=== PATIENT | male | born 1965 | race Caucasian/White ===

== ENCOUNTER 2020-09-08 09:51 | Outpatient (RCR) | payer OTHER, SELFPAY | END 2020-09-08 23:59 | LOC: IMMUN 09:51 | PROVIDERS: PCP Family Medicine; Visit Provider Family Medicine | DX: Z23 Encounter for immunization (principal) | CPT/HCPCS: 0011A; 0012A ==

== ENCOUNTER → 2023-07-01 | Outpatient (CLI) | payer OTHER, SELFPAY ==
--- NOTE | 2023-06-28 09:30 | MASS_PTH ---
PATIENT: MELODIE SMITH Jr. LOC: [facility] U#:[id number] AGE/SX: 57/M ROOM: RE07/01/[address]: Dr. Kash Garza MD : 1965 BED: DIS: 07/01/2023 SPEC #: [id number] RECD: 07/02/23 09:05 STATUS: PAT REIron #: [id number] YESSICA: 06/28/23 09:[address]: Kash Garza DEPT: SURGICAL PATHOLOGY RECD BY: Snow Mijares ENTERED: 07/02/23 09:06 SP TYPE: Mass OTHR DR: Dr. Javi Zamora MD [facility] Tissues: Penis, NOS Procedures: Surgery Specimen Level IV HEADER OPERATION: Excision of penile mass PRE-OP DIAGNOSIS: Carcinoma in situ of penis TISSUE SUBMITTED: Penile mass MICROSCOPIC DIAGNOSIS Penile mass, excision: Invasive well-differentiated squamous cell carcinoma. Chronic inflammation and hyperkeratosis. See comment. AM:haider 07/03/2023 AM:haider 07/29/2023 COMMENT The lesion measures approximately 5.0 millimeters in greatest dimension and is completely excised in the planes examined. There is no evidence of perineural or vascular invasion. Clinical correlation is suggested. CUTANEOUS SQUAMOUS CELL CARCINOMA SUMMARY Procedure - excision, not otherwise specified Tumor focality - unifocal Multiple primary sites - not applicable Tumor site - penis Tumor laterality - not specified Tumor size - 0.5 cm Additional dimensions - 0.5 x 0.3 cm Histologic Type - squamous cell carcinoma, not otherwise specified Histologic Grade - G1: Well differentiated Anatomic level - IV (carcinoma invades reticular dermis) Lymphvascular invasion - not identified Perineural invasion - not identified Margin status for invasive tumor - all margins negative for invasive tumor. Distance from invasive tumor to closest margin - 1.0 mm (deep margin) Closest margin to invasive tumor - deep margin Regional lymph nodes - not applicable Distant metastasis - not applicable PATHOLOGIC STAGE: pT1 Nx Mx The above summary is in compliance with [employer] (CAP) Cancer Protocols Checklist and [place] [employer] on Cancer (AJCC), Staging Manual, 8th Ed. Case discussed with Dr. Moon on 07/29/2023. Case has been reviewed in consultation with Dr. Montoya who concurs with the above diagnosis. IDC:SJ MICROSCOPIC DESCRIPTION Slides are reviewed. GROSS DESCRIPTION Received in fixative is one container labeled with the patient's name and designated penile mass. The specimen consists of a piece of skin with underlying tissue measuring 1.5 x 1.3 x 1.0 cm. The specimen is serially sectioned and submitted entirely in one cassette. / SJ:rg 07/02/2023 TC:0 [facility]: [id number] ADDENDUM ADDENDUM ADDENDUM ADDENDUM ADDENDUM ADDENDUM ADDENDUM ADDENDUM ADDENDUM ADDENDUM ADDENDUM 09/02/2023 08:58 ADDENDUM 09/02/2023 08:58 ADDENDUM 09/02/2023 08:58 ADDENDUM 09/02/2023 08:58 ADDENDUM 09/02/2023 08:58 This addendum is added to incorporate an outside pathology consultation report. The case was examined at [facility] (#[id number]) and the following diagnosis was rendered. Penile mass, excision: Invasive squamous cell carcinoma, well-differentiated. Inked margins are negative for carcinoma. Please see complete above mentioned consultation report in EMR
--- NOTE | 2023-06-28 09:30 | MASS_PTH ---
PATIENT: MELODIE SMITH Jr. LOC: [facility] U#:[id number] AGE/SX: 57/M ROOM: RE07/01/[address]: Dr. Kash Garza MD : 1965 BED: DIS: 07/01/2023 SPEC #: [id number] RECD: 07/02/23 09:05 STATUS: PAT REIron #: [id number] YESSICA: 06/28/23 09:[address]: Kash Garza DEPT: SURGICAL PATHOLOGY RECD BY: Snow Mijares ENTERED: 07/02/23 09:06 SP TYPE: Mass OTHR DR: Dr. Javi Zamora MD [facility] Tissues: Penis, NOS Procedures: Surgery Specimen Level IV HEADER OPERATION: Bilateral excision of penile mass PRE-OP DIAGNOSIS: Carcinoma in situ of penis TISSUE SUBMITTED: Penile mass MICROSCOPIC DIAGNOSIS Penile mass, biopsy: Invasive well-differentiated squamous cell carcinoma. Chronic inflammation and hyperkeratosis. See comment. AM:haider 07/03/2023 COMMENT The lesion measures approximately 5.0 millimeters in greatest dimension and is completely excised in the planes examined. There is no evidence of perineural or vascular invasion. Clinical correlation is suggested. Case has been reviewed in consultation with Dr. Montoya who concurs with the above diagnosis. BETTY:CORRINA MICROSCOPIC DESCRIPTION Slides are reviewed. GROSS DESCRIPTION Received in fixative is one container labeled with the patient's name and designated penile mass. The specimen consists of a piece of skin with underlying tissue measuring 1.5 x 1.3 x 1.0 cm. The specimen is serially sectioned and submitted entirely in one cassette. / CORRINA:haider 07/02/2023 TC:0 CPT: 61368
== END | disposition home or self-care (01) ==
LOC: LABSPEC 15:12
PROVIDERS: PCP Family Medicine; Referring Provider Urology; Visit Provider Urology
DX: C60.9 Malignant neoplasm of penis, unspecified (principal)
CPT/HCPCS: 88305

== ENCOUNTER 2024-01-10 09:00 | Outpatient (RCR) | payer OTHER, SELFPAY ==
[2024-01-03 10:34] VITALS: BP 145/83; PULSE 83; RESP 18; TEMP 36.4; BMI 28.2
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
--- NOTE | 2024-01-06 10:38 | WC ---
PHOTO 01/03/2024 (I) LEFT FOOT
[2024-01-10 09:10] VITALS: BP 146/97; PULSE 68; RESP 18; TEMP 35.3; BMI 28.2
--- NOTE | 2024-01-10 13:01 | PN.PCM_ITS ---
History of Present Illness Date of Service: 01/10/24 Chief Complaint: Wound left dorsal foot History of Wound: David is a 58 yo gentleman that presents to the wound healing center today for evaluation and treatment of a wound of his left dorsal foot that occurred 2 weeks ago. He was moving a knife display and a knife came off and impaled his left foot and bounced off. He had severe bleeding and went to ER and likely it a blood vessel and the ER physician put several sutures in to stop bleeding and approximate the laceration. Several days later the wound started bleeding again and they went back to the ER and they placed surgical foam to stop the bleeding and treated him with Keflex and then they went to [place] and it began bleeding again and the used quick clot to stop the bleeding. He went to his PCP and they did not feel comfortable removing sutures and referred him here. He has comorbidities of DM - most recent A1C was 7.2%, chronic anticoagulation for recurrent blood clots and HTN There is light drainage and no odor or erythema. Subjective Subjective David returns for follow up of ulcer of his left foot. He is tolerating treatment with Promogran to his foot and there has been improvement in the size of his ulcer. He did have positive wound culture but has not started the antibiotic treatment yet but plans on starting this today. Denies increased drainage, erythema, or pain. Objective Data Objective Data Vital Signs: Vital Signs Temp Pulse Resp BP O2 Del Method 95.6 F L 68 18 146/97 H Room Air 01/10/24 09:10 01/10/24 09:10 01/10/24 09:10 01/10/24 09:10 01/10/24 09:10 Oxygen Delivery Method Room Air Weight: 107.955 kg Body Mass Index (BMI) 28.2 Lab / Micro Data Micro: Microbiology 01/03/24 11:09 Ulcer, Decubitus - Left Foot Gram Stain - Final 01/03/24 11:09 Ulcer, Decubitus - Left Foot Wound Culture - Final Streptococcus agalactiae (B) Staphylococcus epidermidis 01/03/24 11:09 Ulcer, Decubitus - Left Foot Anaerobic Culture - Final No anaerobic bacteria isolated. Physical Exam Const alert, oriented x3 and no apparent distress General Appearance: cooperative and comfortable HEENT normocephalic and head/scalp atraumatic Resp normal respiratory effort Effort and Inspection: able to speak in complete sentences Cardio regular rate and regular rhythm Skin Wounds: wounds noted Wound Narrative: as in clinical panel Psych mental status grossly normal, thought process normal, cooperative and affect normal Debridement Note Debridement Note Wound debrided: left foot Laterality: Left Type of Debridement: Excisional debridement Anesthesia Used: 4% Lidocaine Solution and 5% Lidocaine Gel Depth: Down to and including healthy tissue and in the subcutaneous layer Percentage of wound debrided: 100 Instrument Used: 3mm curette Severity: Fat Layer Exposed Amount of bleeding with debridement: Mild Bleeding Controlled with: Compression and gauze Patient tolerated procedure: Patient tolerated procedure well Post-Debridement Measurements and Additional Note: Post-Debridement Measurements/Treatment - Nurse 1 - General Ulcer Assessment Start: 01/03/24 10:33 Freq: Status: Active Protocol: MARK Activity Type Activity Date Activity User E-sign Co-sign Detail Recorded Client Recorded Date Recorded By Document 01/03/24 10:34 RB wound 01/03/24 10:41 RB Document 01/10/24 09:10 KW ; 01/10/24 09:18 KW 01/03/24 01/10/24 10:34 09:10 - Today's Visit Information Type of service Initial Visit Follow-up Visit (Physician/SECOND HELPER ) Arrival Mode Ambulatory Ambulatory Transfer Assistance None Accompanied by Patient Identification Verified (Name & Yes Yes ) Patient Requires Transmission-Based No Precautions Height and Weight Height 6 ft 5 in Weight 107.955 kg Weight in Pounds 238.0 lbs Body Mass Index (BMI) 28.2 28.2 BMI Classification Overweight Overweight BSA - Cleve 2.41 Vital Signs Temperature (97.8 F-99.1 F) 97.5 F L 95.6 F L Temperature Source Temporal Temporal Pulse Rate (60-100) 83 68 Pulse Location Monitor Monitor Respiratory Rate (12-18) 18 18 Respiratory rate source Observation Observation Oxygen Delivery Method Room Air Blood Pressure (90/60-120/80) 145/83 H 146/97 H Blood Pressure Mean (mm Hg) 103 113 Source Monitor Monitor Position Semi-Fowlers Sitting Blood Pressure Location Left Arm Left Arm History Since Last Visit- (Skip if this is Patient's initial visit) Have you changed medications since your No No last visit? Any new allergies or adverse reactions No No Had a fall/change in ADL's that may No No increase risk of falls Signs or symptoms of abuse and/or No No neglect since last visit Have you been in the hospital since your No No last visit? Has dressing in place as prescribed Yes Yes Has compression in place as prescribed No N/A Has offloadiing in place as prescribed No N/A Experienced any changes in pain level or No No management Left Footwear Regular Shoe Right Footwear Regular Shoe Pain Scale: 0-10 Numeric Is Patient Pain Free? Yes Yes Lower Extremity Assessment/ Foot Assessment/ Toe Nail Assessment Right -Posterior Tibial Palpable Yes -Posterior Tibial Doppler Multiphasic -Dorsalis Pedis Palpable Yes -Dorsalis Pedis Doppler Multiphasic -Extremity Color Normal -Hair Growth on Legs Yes -Hair Growth on Toes Yes -Temperature of Extremity Warm -Capillary Refill Greater than 3 Seconds -Dependent Rubor No -Blanched when Elevated No -Lipodermatosclerosis No -Other Deformity Yes -Prior Foot Ulcer No -Charcot Joint No -Prior Amputation No -Thick No -Discolored No -Deformed No -Improper Length & Hygeine Yes Left -Posterior Tibial Palpable Yes -Posterior Tibial Doppler Multiphasic -Dorsalis Pedis Palpable Yes -Dorsalis Pedis Doppler Multiphasic -Extremity Color Normal -Hair Growth on Legs Yes -Hair Growth on Toes Yes -Temperature of Extremity Warm -Capillary Refill Greater than 3 Seconds -Dependent Rubor No -Blanched when Elevated No -Lipodermatosclerosis No -Other Deformity Yes -Prior Foot Ulcer No -Charcot Joint No -Prior Amputation No -Thick No -Discolored No -Deformed No -Improper Length & Hygeine Yes Neuropathy Assessment Feet - Top Side and Bottom <Entered> (a) Communication Assessment Preferred language Sinhala Reinforcing Metal Worker Required No Able to Read Yes Able to Write Yes Communication Tools None Right Hearing Abillity Normal Left Hearing Abillity Normal Visual Assistive Devices Contacts Teaching Assessment Preferences Verbal,Written, Demonstration Barriers to Learning None Readiness To Learn Good Willingness to Engage in Self Management Med Activies Readiness to Engage in Self Management Med Activities Anxiety Level Calm Cooperation Cooperative Perception Coherent Interest in Health Problem Asks Questions Education Importance Acknowledges Need Does Patient Smoke tobacco or other No substances Smoking Status Never smoker Is Patient Diabetic Yes Functional Assessment Recent Decline in Ability to Perform Denies Any Declines Culture/Caodaism/Specialist Physicians Cultural/Caodaism Needs that may affect No Treatment Plan Would you allow our hospital nuclear equipment sales engineer to No meet you for the purpose of spiritual/ emotional support? Specialist Physicians to contact place of buddhist No Teaching: Wound Center *Welcome to the Wound Center -Person Taught Patient -Teaching Method Discussion -Response to teaching Verbalize understanding (a) 1 - - throughout 2 - + throughout WC - Nurse 1 - General Ulcer Measurement Start: 01/03/24 10:33 Freq: Status: Active Protocol: Activity Type Activity Date Activity User E-sign Co-sign Detail Recorded Client Recorded Date Recorded By Document 01/03/24 10:34 RB wound 01/03/24 10:41 RB Edit Result 01/03/24 10:34 RB (1) wound 01/03/24 10:59 RB Document 01/10/24 09:10 KW ; 01/10/24 09:18 KW (1) 1. L foot - Wound Comment(s) => 2 sutures noted 01/03/24 01/10/24 10:34 09:10 Wound Center Nurse 1 1. L foot -Combined with other wound No -Current Size (cm) - Length 0.7 0.4 -Current Size (cm) - Width 0.7 0.6 -Current Size (cm) - Depth 0.3 0.2 -Total Square Cm 0.49 0.24 -Date of Last Picture (Recall this 01/10/24 field) -Photo Taken Yes -Tunneling No -Undermining/Tunneling No -Circular Undermining No -Exudate Amt Medium Small -Exudate Type Serosanguineous Serosanguineous -Wound Margin Distinct, Distinct, Outline Outline Attached Attached -Granulation Amt Medium (34-66%) Small (1-33%) -Granulation Quality [place] -Slough/Fibrin Yes -Necrosis Amt Medium (34-66%) Large (67-100%) -Necrotic Tissue Type Adherent Slough Adherent Slough -Structure Exposed N/A -Texture (Nga-wound Skin Appearance) Assessed, Assessed Scarring -Moisture (Nga-wound Skin Appearance) Assessed Assessed -Color (Nga-wound Skin Appearance) Assessed Assessed -Temperature (Nga-wound Skin No Abnormality No Abnormality Appearance) (Pt Warm) (Pt Warm) -Tenderness on Palpation (Nga-wound No Yes Skin Appearance) -Ulcer Cleansing Wound Cleanser Rinsed/ Irrigated with Saline -Foul Odor after Cleansing No No -Anesthetic Used 4% Lidocaine 5% Lidocaine Solution Gel -Wound Comment(s) 2 sutures noted Lower Limb Edema Present Yes Right Calf (cm) 34.6 Right Ankle (cm) 22 Left Calf (cm) 41.5 Left Ankle (cm) 25 WC - Nurse 2 - General Ulcer CM Notes Start: 01/03/24 10:33 Freq: Status: Active Protocol: Activity Type Activity Date Activity User E-sign Co-sign Detail Recorded Client Recorded Date Recorded By Document 01/03/24 10:58 GM 01/03/24 11:18 GM Document 01/10/24 09:26 [facility] 01/10/24 09:34 01/03/24 01/10/24 10:58 09:26 Wound Center Nurse 2 1. L foot -Time 10:59 09:27 -Correct Patient Yes Yes -Correct Side, Site, Position Yes Yes -Correct Procedure Yes -Procedure Performed Yes -Type of Procedure Debridement -Clinical Debridement Subcutaneous -Tissue Removed Subcutaneous -Post Debridement (cm) - Length 0.3 -Post Debridement (cm) - Width 0.4 -Post Debridement (cm) - Depth 0.2 -Total Square (Post) (cm) 0.12 -Area of Debridement (cm) - Length 0.3 -Area of Debridement (cm) - Width 0.4 -Total Square (Area) (cm) 0.12 -Tunneling No -Undermining/Tunneling No -Circular Undermining No -Wound/Ulcer Outcome Not Healed -Ulcer Cleansing Rinsed/ Irrigated with Saline -Foul Odor after Cleansing No -Bioengineered Tissue No -Bleeding Controlled with Pressure -Treatment Response Procedure Tolerated Well -Debridement - Subq, 1st 20sq cm Yes -Wound Comment(s) No debridement - sutures removed Measures 0.5 x 0.8 x 0.3 Pain Scale: 0-10 Numeric Is Patient Pain Free? Yes Yes - Nurse 3 - General Ulcer D/C NN Start: 01/03/24 10:33 Freq: Status: Active Protocol: Activity Type Activity Date Activity User E-sign Co-sign Detail Recorded Client Recorded Date Recorded By Document 01/03/24 11:34 KW ' 01/03/24 11:42 KW Document 01/10/24 09:55 KW ; 01/10/24 09:55 KW 01/03/24 01/10/24 11:34 09:55 Wound Care Center Nurse 3 1. L foot -Ulcer Cleansing Rinsed/ Irrigated with Saline -Primary Dressing Applied Promogran Promogran -Primary Dressing Covered/Secured with Dry Gauze, Dry Gauze & Secured with Roll Gauze, Tape Secured with Tape -Promogran 1 1 Pain Scale: 0-10 Numeric Is Patient Pain Free? Yes Yes WC - Visit Discharge Discharge Condition Stable Stable Ambulatory Status Ambulatory Ambulatory Transportation Private Auto Private Auto Medication Reconcilliation completed & No No provided to patient/care provider Clinical Summary of Care Provided Yes Yes Assessment/Plan Assessment/Plan (1) Diabetes mellitus: CODE(S): E11.9 - Type 2 diabetes mellitus without complications QUALIFIERS: Diabetes mellitus type: type 2 Diabetes mellitus [facility] insulin use: without bed bug exterminator use Diabetes mellitus complication status: with neurologic complications Diabetes mellitus complication detail: with polyneuropathy Qualified Code(s): E11.42 - Type 2 diabetes mellitus with diabetic polyneuropathy (2) Hypertension: CODE(S): I10 - Essential (primary) hypertension QUALIFIERS: Hypertension type: primary hypertension Qualified Code(s): I10 - Essential (primary) hypertension (3) History of DVT (deep vein thrombosis): CODE(S): Z86.718 - Personal history of other venous thrombosis and embolism (4) Chronic anticoagulation: CODE(S): Z79.01 - 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 (5) Knife wound: CODE(S): W26.0XXA - Contact with knife, initial encounter (6) Ulcer of left foot with fat layer exposed: CODE(S): L97.522 - Non-pressure chronic ulcer of other part of left foot with fat layer exposed PLAN: Plan Debridement performed today in clinic as annotated above. At home wound-care instructions: Will have him continue to apply Promogran and cover with gauze and tape or silicone bordered foam dressing daily. Keep dressing clean and dry. Off-loading: The patient was instructed to avoid pressure and friction on the affected areas. Reposition every 2 hours at minimum. Avoid prolonged standing and/or dangling of legs. When seated, feet should be elevated at chest level. Frequent ambulation is encouraged. Diet: Patient encouraged to increase protein intake while taking caution to avoid high carbohydrate and/or sugar intake. Labs/cultures/imaging: Wound culture taken today. Follow-up: Return in 2 weeks for wound care follow up. Return sooner or report to the emergency room should symptoms worsen, or new symptoms arise. Note: [employer] speech recognition soccer player software was used to create portions of this document. Sound-alike and misspelled words, as well as other soccer player errors may be contained in the documentation.
== END 2024-01-12 23:59 | disposition home or self-care (01) ==
LOC: WC 09:00
PROVIDERS: Visit Provider Family Medicine
DX: S91.312A Laceration without foreign body, left foot, initial encounter (principal); E11.42 Type 2 diabetes mellitus with diabetic polyneuropathy; E78.5 Hyperlipidemia, unspecified; I10 Essential (primary) hypertension; R60.0 Localized edema; Z79.01 Long term (current) use of anticoagulants; Z79.84 Long term (current) use of oral hypoglycemic drugs; Z86.718 Personal history of other venous thrombosis and embolism; Z79.899 Other long term (current) drug therapy; Z87.891 Personal history of nicotine dependence; W26.0XXA Contact with knife, initial encounter
CPT/HCPCS: 11042; 87070; 87075; 87077; 87186; 87205; 99213; G0463

== ENCOUNTER → 2024-03-09 | Outpatient (CLI) | payer OTHER, SELFPAY ==
[2024-03-09 12:32] LABS: Hematocrit 36.9 % (40-54); Hemoglobin 12.6 g/dL (13.0-16.5); Mean Corp Hgb Conc 34.1 g/dL (32-36); Mean Corpuscular Hgb 29.7 pg (27.0-32.0); Platelet Count 223 K/mm3 (150-450); RBC Distribution Width CV 13.1 % (11.6-14.6); RBC Distribution Width SD 40.9 fl (35.1-43.9); Red Blood Count 4.24 M/mm3 (4.6-6.2); White Blood Count 7.1 K/mm3 (4.4-11.0)
== END | disposition home or self-care (01) ==
DX: C60.9 Malignant neoplasm of penis, unspecified (principal)
CPT/HCPCS: 36415; 85027

== ENCOUNTER 2025-03-20 11:24 | Emergency (ER) | payer OTHER, SELFPAY ==
[2025-03-20 11:25] VITALS: BP 146/99; PULSE 82; RESP 16; TEMP 36.7; O2SAT 98; BMI 28.6
--- NOTE | 2025-03-20 11:53 | VDLE_ITS ---
Reason For Study Reason For Study: LLE Pain RIGHT LEFT CFV is compressible, spontaneous, phasic, competent GSV is normal. and demonstrates normal augmentation. CFV is compressible, spontaneous, phasic, competent, Procedure and demonstrates normal augmentation. This is a venous duplex using B-mode, color flow and FV is compressible, spontaneous, phasic, competent spectral Doppler. and demonstrates normal augmentation. Exam performed portable in ED. POP V is compressible, spontaneous, phasic, competent The exam was diagnostic. and demonstrates normal augmentation. A preliminary report was called and/or faxed to T/P Trunk is compressible. Jimi. PTV is compressible. LT PerV is compressible. Non Vascularized area of mixed echoes noted in Lt POP Fossa measuring approximately 2.58cm x 1.68cm. VL/Venous Duplex US, Unilateral Interpretation Summary Deep veins of the left lower extremity are patent and compressible segmentally. There is no evidence of left lower extremity deep vein thrombosis. Valvular competence appears intact within the p roximal deep venous system on the left . The left great saphenous vein appears patent and compressible segmentally. A no n-vascular, heterogeneous structure is noted in the left popliteal space, measuring 2.58 cm x 1.68 cm. This probably r epresents a popliteal cyst. Clinical correlation is advised. The right common femoral vein is patent and compressibl e . Ordering Physician: Dionne Isaca Referring Physician: Otf Juarez Performed By: Fabricio Hernandez, RVNarendra
--- NOTE | 2025-03-20 11:54 | EDS_ITS ---
HPI History of Present Illness Chief Complaint: Lower Extremity Injury Narrative Narrative: Patient is a 59-year-old male presenting to the emergency department for left leg pain. Patient reports that Saturday he started having left calf pain. States it felt like a cramp sensation. He does have a history of DVTs. He is on Xarelto and has not missed any doses recently. Denies any recent travel or surgeries. States his prior DVTs were after surgeries. Reports that last night the pain came up his medial left thigh. States it feels similar to his prior clots in the past. He went to [facility] and they do not have ultrasound capabilities at this time so they discharged him and he came here for evaluation. Did not take anything for pain prior to arrival. Denies any trauma or falls. [facility] Medical History Carcinoma of penis Vitamin D deficiency History of DVT (deep vein thrombosis) History of pulmonary embolism Diabetes mellitus Hyperlipidemia Hypertension Phlebitis and thrombophlebitis of unspecified deep vessels of left lower extremity Home Medications ?Medication ?Instructions ?Recorded ?Last Taken ?Type acetaminophen 500 mg tablet 500 mg PO Q6H PRN fever or pain 07/25/23 Unknown History (Tylenol Extra Strength) ergocalciferol (vitamin D2) 50 mcg 50 mcg PO DAILY 06/07 Unknown History (2,000 unit) capsule ibuprofen 600 mg tablet 600 mg PO Q6H PRN pain 07/25 Unknown History mecobalamin (vitamin B12) 1,000 1,000 mcg PO DAILY 06/07 Unknown History mcg chewable tablet omega-3 fatty acids-fish oil 300 cap PO 07/25/23 Unkno wn History mg-500 mg capsule (Fish Oil) rivaroxaban 20 mg tablet (Xarelto) 20 mg PO DAILY 07/15 08/07 Unknown History turmeric 400 mg capsule 400 mg PO 07/25/23 Unknown H istory cholecalciferol (vitamin D3) 1,250 1,250 mcg PO QWEEK 07/29/23 Unknown History mcg (50,000 unit) capsule metformin 500 mg tablet 1,000 mg PO BID 07/29/23 Unk nown History rosuvastatin 10 mg tablet 10 mg PO DAILY 07/29/23 Unkn own History amlodipine 5 mg tablet 5 mg PO DAILY 01/03/24 Unkno wn History lisinopril 30 mg tablet 30 mg PO DAILY 01/03/24 Unkn own History amoxicillin 500 mg capsule 1,000 mg (2 x 500 mg) PO TI D #188 01/04/25 Unknown Rx caps metoprolol succinate 50 mg 50 mg PO QDAY 01/04/25 Unkn own History tablet,extended release 24 hr Allergy/AdvReac Type Severity Reaction Status Date / Time No Known Allergies Allergy Verified 03/20/25 11:26 Family History Mother Blood clot in vein Grandmother Blood clot in vein Cancer lung Father Heart disease Surgical History History of squamous cell carcinoma excision History of foot surgery History of back surgery Social History Smoking Status: Never smoker how long ago did patient quit smoking: former some day cigar use, hasn't smoke in at least 2 years. alcohol intake: current alcohol intake frequency: a few times a week substance use type: does not use ROS ROS ED ROS Narrative see HPI EXAM Physical Exam Narrative Exam Narrative: Vital signs: Reviewed General: Alert and oriented. No acute distress HEENT: Head is normocephalic and atraumatic, sinuses nontender, pupils equal round and reactive. Nares are patent. Oropharynx and throat exams normal. Neck: Supple without lymphadenopathy nontender Cardiovascular: Regular rate and rhythm, no murmurs. No rubs or gallops. Normal S1 and S2 Respiratory: Clear to auscultation bilaterally. No wheezes, rales, rhonchi Abdominal: Soft and nontender. Normal bowel sounds. No guarding or rebound. Nonsurgical abdomen Extremities: DP and PT pulses intact bilaterally. Motor and sensation intact bilaterally. There is no posterior calf tenderness to palpation. No asymmetric swelling. No erythema. Some mild tenderness palpation of the left medial distal thigh. No erythema, warmth, fluctuance. Compartments are soft. Skin: No rash or redness. Neurological: Cranial nerves II through XII are grossly intact. Normal strength and sensation. Normal cerebellar function The rest of the physical exam is unremarkable Const Vital Signs: 03/20/25 11:25 03/20/25 13:39 Temperature 98.0 F 98.1 F Temperature Source Oral Pulse Rate 82 63 Respiratory Rate 16 18 Blood Pressure 146/99 H 131/79 H Blood Pressure Mean 114 96 Pulse Ox 98 97 Oxygen Delivery Method Room Air MDM MDM MDM Narrative Medical decision making narrative: Patient is a 59-year-old male presenting emergency department for left leg pain. Patient was seen and examined. Vitals are stable. Patient resting in bed comfortably no acute distress. Differential includes but is not limited to: DVT, thrombophlebitis, MSK Left lower extremity DVT ultrasound ordered. Negative for DVT or thrombophlebitis. Patient given Tylenol for analgesia. He was updated on the negative ultrasound findings. I did recommend that he watch the area for any signs of infection including redness, warmth or fluctuance. I told him that the pain could be an early sign of infection however there is no evidence of infection on exam and I do not think starting prophylactic antibiotics is indicated. He was instructed to take Tylenol or Motrin for pain control. Instructed to follow-up with primary care doctor as soon as possible and return to the ED with any new or worsening symptoms. Patient discharged from the Emerg ency Department. I do not feel that the patient's evaluation reveals any acute reason for admission at this time. I instructed them to either follow-up with their primary care physician or promptly return to the Emergency Department for reevaluation should symptoms worsen or new symptoms develop. I explained what symptoms would indicate the need to return to the emergency department. Shared decision making was used. The patient voiced understanding of the treatment plan and is agreeable with it. Clinical impression Leg pain Discharge Plan Triage Chief Complaint: Lower Extremity Injury ED Provider: Dionen Isaac Dx/Rx/DC Orders Clinical Impression: History of DVT (deep vein thrombosis), Left leg pain Instructions: Self-Care for Strains and Sprains, ED RICE Prescriptions: No Action cholecalciferol (vitamin D3) 1,250 mcg (50,000 unit) capsule 1,250 mcg PO QWEEK rosuvastatin 10 mg tablet 10 mg PO DAILY Fish Oil 300-500 mg capsule PO ibuprofen 600 mg tablet 600 mg PO Q6H PRN (Reason: pain) turmeric 400 mg capsule 400 mg PO acetaminophen [Tylenol Extra Strength] 500 mg tablet 500 mg PO Q6H PRN (Reason: fever or pain) mecobalamin (vitamin B12) 1,000 mcg tablet,chewable 1,000 mcg PO DAILY ergocalciferol (vitamin D2) 50 mcg (2,000 unit) capsule 50 mcg PO DAILY Xarelto 20 mg tablet 20 mg PO DAILY Rx Instructions: must administer with evening meal metformin 500 mg tablet 1,000 mg PO BID metoprolol succinate 50 mg tablet extended release 24 hr 50 mg PO QDAY amoxicillin 500 mg capsule 1,000 mg PO TID Qty: 188 0RF lisinopril 30 mg tablet 30 mg PO DAILY amlodipine 5 mg tablet 5 mg PO DAILY Primary Care Provider: Otf Juarez Referrals: Otf Juarez DO [Primary Care Provider] - 2 Days Activity Restrictions/Additional Instructions: Your evaluation in the Emergency Department did not reveal any acute reason for admission. However, I want to emphasize that you may be early in the course of a disease process or illness even if it is not present. For this reason you should follow-up within 24 hours for reevaluation with either your primary care physician or if necessary back here in the Emergency Department. You should return to the Emergency Department immediately if your symptoms worsen or new symptoms develop. Print Language: Cymro Disposition Disposition: Home, Self Care Discharge Date/Time: 03/20/25 13:45
--- OUTSIDE RECORDS SUMMARY | 2025-03-20 12:03 | XMS RPT_ITS | CCD ---
Author Organization [facility] Inform ion Partnership [facility] ([facility] Care Team Providers Care Curriculum And Instruction Specialist Name Role Phone MAGGY RODRIGUEZ, RUBEN Ontiveros Primary Care Physician [phone] MARYBEL VALENZUELA, MARY BETH Primary Care Physician VIDAL JUAREZ DO Primary Care Physician Unavailable Primary Care Provider Unavailfátima Lafleur RN, Rebekah Unavailable Unavailable Sarai [facility], Kylee Rodriguez Unavailable Vidal Juarez DO Primary Care Provider NEFTALI MO MD Attending Unavail able VIDAL JUAREZ Primary Care Unavailable NEFTALI MO MD Attending Unavail able VIDAL JUAREZ Primary Care Unavailable NEFTALI MO MD Attending Unavail able VIDAL JUAREZ Primary Care Unavailable TAVO MCCANN DO Attending Unavailable VIDAL JUAREZ Primary Care Unavailable VIDAL JUAREZ Attending Unavailable VIDAL JUAREZ Primary Care Unavailable KARLOS RODRIGUEZ, DR ASMITA CONTRERAS Attending VIDAL Oates Primary Care Unavailable WANDA FELIPE MD Attending Unavaila VIDAL Hooks Primary Care Unavailable KARLOS RODRIGUEZ, DR ASMITA CONTRERAS Attending VIDAL Oates Primary Care Unavailable VIDAL JUAREZ Attending Unavailable VIDAL JUAREZ Primary Care Unavailable VIDAL JUAREZ Attending Unavailable VIDAL JUAREZ Primary Care Unavailable EMIGDIO CHASE Attending Unavailable VIDAL JUAREZ Primary Care Unavailable Anders Baird RN Unavailable Unavailable Jeff Townsend [facility] Un[facility] Un available Lucinda [facility],PharmD, Elizabeth Unavailable Unavail able Adryan Velazquez DO Unavailable Mayco HOSKINS, Isa Rowley Unavailable [phone] Юлия MYERS, Liliana Unavailable Unavailable Juarez DO, Vidal E Primary Care Provider Sarai [facility], Kylee Rodriguez Unavailable [phone] IZAIAH MAURER Attending Unavailable CYNDY PANCHAL Admitting Unavailable RICHAR ONEAL Referring Unavailable JUAREZ, VIDAL E Primary Care Unavailable CONSULT, INFECTIOUS DISEASE Consulting Unav ailable DASIZAIAH HIGH Attending Unavailable SELF, SELF Referring Unavailable JUAREZ, VIDAL E Primary Care Unavailable REBECA KIM Referring Unavailable JUAREZ, VIDAL E Primary Care Unavailable SAGRARIO BARNARD Attending Unavailable CONSULT, UROLOGY Consulting Unavailable JUAREZ, VIDAL E Primary Care Unavailable IZAIAH MAURER Attending Unavailable IZAIAH MAURER Attending Unavailable DASON, IZAIAH Admitting Unavailable JUAREZ, VIDAL E Primary Care Unavailable JC YANES Referring Unavailable CONSULT, INFECTIOUS DISEASE Consulting Unav ailable DASIZAIAH HIGH Attending Unavailable JUAREZ, VIDAL E Primary Care Unavailable JUAREZ, VIDAL E Referring Unavailable IZAIAH MAURER Attending Unavailable REBECA KIM Referring Unavailable JUAREZ, VIDAL E Primary Care Unavailable CHRISTIANO MAY Attending Unavailab SAGRARIO Strange Referring Unavailable JUAREZ, VIDAL E Primary Care Unavailable IZAIAH MAURER Admitting Unavailable IZAIAH MAURER Attending Unavailable KYLEE CANTOR Referring Unavailable JUAREZ, VIDAL E Primary Care Unavailable CONSULT, NEPHROLOGY Consulting Unavailable JUAREZ, VIDAL E Primary Care Unavailable CATALINA VYAS Admitting Unavailable MELODIE CHAPMAN Attending Unavailable IZAIAH MAURER Attending Unavailable REBECA KIM Referring Unavailable JUAREZ, VIDAL E Primary Care Unavailable SULLY HENLEY Attending Unavailable JUAREZ, VIDAL E Primary Care Unavailable JOANN PEREIRA Referring Unavailable DASONIZAIAH Attending Unavailable JUAREZ, VIDAL E Primary Care Unavailable SELF, SELF Referring Unavailable SULLY HENLEY Attending Unavailable JUAREZ, VIDAL E Primary Care Unavailable JOANN PEREIRA Referring Unavailable JUAREZ, VIDAL E Primary Care Unavailable SUZIE MARTIN Referring Unavailable MK MARTINEZ Attending Unavailable IZAIAH MAURER Attending Unavailable JUAREZ, VIDAL E Referring Unavailable JUAREZ, VIDAL E Primary Care Unavailable DASIZAIAH HIGH Admitting Unavailable CONSULT, VIR Consulting Unavailable JUAREZ, VIDAL E Primary Care Unavailable ANIBAL MAURERWN Attending Unavailable MINDA PALMER Referring Unavailable DASONIZAIAH Attending Unavailable DASONANIBALWN Admitting Unavailable JUAREZ, VIDAL E Referring Unavailable JUAREZ, VIDAL E Primary Care Unavailable DASONANIBALWN Attending Unavailable DASONANIBALWN Admitting Unavailable CONSULT, UROLOGY Consulting Unavailable JUAREZ, VIDAL E Primary Care Unavailable JUAREZ, VIDAL E Primary Care Unavailable YVONNE MASSEY Attending Unavailable JUAREZ, VIDAL E Primary Care Unavailable JOANN PEREIRA Attending Unavailable JOANN PEREIRA Referring Unavailable JUAREZ, VIDAL E Primary Care Unavailable CLEMENT DICKENS Attending Unavailabl e SELF, SELF Referring Unavailable JUAREZ, VIDAL E Primary Care Unavailable DASONANIBALWN Attending Unavailable JUAREZ, VIDAL E Referring Unavailable JUAREZ, VIDAL E Primary Care Unavailable DASONANIBALWN Attending Unavailable JUAREZ, VIDAL E Primary Care Unavailable DASON IZAIAH Referring Unavailable DASON, IZAIAH Attending Unavailable JUAREZ, VIDAL E Primary Care Unavailable DASONANIBALWN Referring Unavailable MARK LY Attending Unavailable JUAREZ, VIDAL E Primary Care Unavailable DASONANIBALWN Referring Unavailable DASONANIBALWN Attending Unavailable JUAREZ, VIDAL E Referring Unavailable JUAREZ, VIDAL E Primary Care Unavailable JUAREZ, VIDAL E Referring Unavailable JUAREZ, VIDAL E Primary Care Unavailable DASONANIBALWN Attending Unavailable JUAREZ, VIDAL E Referring Unavailable JUAREZ, VIDAL E Primary Care Unavailable DASONANIBALWN Attending Unavailable DASONANIBALWN Attending Unavailable JUAREZ, VIDAL E Referring Unavailable JUAREZ, VIDAL E Primary Care Unavailable JUAREZ, VIDAL E Referring Unavailable JUAREZ, VIDAL E Primary Care Unavailable DASFRANCO HIGHN Attending Unavailable DASONIZAIAH Attending Unavailable JUAREZ, VIDAL E Primary Care Unavailable DASON, IZAIAH Referring Unavailable DASONANIBALWN Attending Unavailable JUAREZ, VIDAL E Referring Unavailable JUAREZ, VIDAL E Primary Care Unavailable Dr. Vidal Juarez DO Primary Care Provider Dr. Vidal Juarez DO Referring Provider Trent Yarbrough Attending Provider [phone] Vidal Juarez Referring Unavailable Regla Landa Attending Unavailable Larry, Vidal Primary Care Unavailable PETRA VIRK Attending Unavailable PETRA VIRK Referring Unavailable Larry, Vidal Primary Care Unavailable Vidal Juarez Referring Unavailable Malys, Regla Attending Unavailable Vidal Juarez Primary Care Unavailable Vidal Juarez Referring Unavailable Trent Yarbrough Attending Unavailable Vidal Juarez Primary Care Unavailable JOANN PEREIRA APRN Attending Unavailable VIDAL JUAREZ DO Primary Care Unavailable LARRY ROSARIO, VIDAL Cooper Primary Care Unavailable VIDAL JUAREZ DO Attending Unavailable VIDAL JUAREZ DO E Primary Care Unavailable VIDAL JUAREZ DO E Attending Unavailable VIDAL JUAREZ DO E Primary Care Unavailable HILLARY MARTIN Attending Luis Carlos JUAREZ DO, VIDAL Cooper Primary Care Unavailable JOANN PEREIRA APRN Attending Unavailable Unavailable Primary Care Provider UnavailVIDAL Wharton Referring Unavailable Unavailable Unavailable Unavailable Medications Current Medications Medication Drug Class(es) Dates Sig (Normalized) Sig (Original) acetaminophen 325 mg / HYDROcodone bitartrate 5 mg oral tablet (5 sources) Opioid Agonist Start: 02-25-2024 End: 03-06-2024 [place] 325- 5 mg oral tablet Dose = 1 tab(s), Oral, q6h, PRN for pain, May take 1-2 tablets / dose, X 3 day(s), # 12 tab(s), 0 Refill(s), Right biceps strain, 107 Start Date: 02/27/24 Stop Date: 03/01/24 Status: Ordered amLODIPine 5 mg oral tablet (20 sources) Dihydropyridine Calcium Channel Zenon Start: 02-15-2025 amLODIPine 5 mg oral tablet Dose : 5 mg = 1 tab(s), Oral, qDay, # 100 tab(s), 1 Refill(s), Pharmacy: [facility], 195.5, cm, 02/15/25 9:04:00 EDT, Height, kg, 02/15/25 9:04:00 EDT, Dosing Weight Start Date: 02/15/25 Status: Ordered Medication Dispense Status: Completed Quantity: 100.0 Unit: tab(s) Total Allowed Fills: 2 Fills Dispensed: 0 Start: 04-21-2024 End: 04-22-2024 take 5 mg by mouth once daily 5 mg, Oral, DAILY, First dose on Sat04/21/24 at 0900, Until Discontinued Start: 04-15-2024 End: 04-14-2024 take 5 mg by mouth once daily 5 mg, Oral, DAILY, First dose (after last modification) on Sat04/15/24 at 0900, Until Discontinued Start: 11-22-2023 End: 04-14-2024 take 1 tablet by mouth once daily Amlodipine 5 mg tablet Active 5 mg PO DAILY January 03, 2024 12:00am amoxicillin 500 mg oral capsule (1 source) Penicillin-class Antibacterial Start: 01-04-2025 take 2 capsules by mouth three times daily Amoxicillin 500 mg capsule Active 1000 mg PO THREE TIMES A DAY 188 January 04, 2025 12:00am amoxicillin 875 mg / clavulanate 125 mg oral tablet (11 sources) Penicillin-class Antibacterial Start: 05-18-2024 amoxicillin-clav ulanate 875 mg-125 mg oral tablet 0 Refill(s), 106.8 Start Date: 05/18/24 Status: Ordered Repeat number: 1 Start: 04-20-2024 End: 04-21-2024 take 1 tablet by mouth every twelve hours 1 tablet, Oral, EVERY 12 HOURS, First dose on Sat04/20/24 at 2300, Until Discontinued Start: 04-11-2024 End: 05-25-2024 take 1 tablet by mouth every twelve hours Amoxicillin-clavulanate 875-125 MG tablet Take 1 tablet by mouth every 12 hours. 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 32 tablet 05/19/2024 06/04/2024 Active cephalexin 500 mg oral capsule (2 sources) Cephalosporin Antibacterial Start: 12-20-2023 End: 12-30-2023 cephalexin 500 mg oral capsule Dose : 500 mg = 1 cap(s), Oral, QID, X 10 day(s), # 40 cap(s), 0 Refill(s), 12/30/23 4:14:00 PM EDT, Pharmacy: [facility]/pharmacy #[id number], Infected incision, 195.5, cm, 12/20/23 15:15:00 EDT, Height, 107.8, kg, 12/20/23 15:15:00 EDT, Dosing Weight Start Date: 12/20/23 Stop Date: 12/30/23 Status: Ordered Start: 11-04-2023 End: 11-11-2023 take 1 capsule by mouth every six hours cephALEXin 500 MG capsule Take 1 capsule by mouth every 6 hours for 7 days. 28 capsule 11/04/2023 11/11/2023 Active cholecalciferol 1.25 mg oral capsule (17 sources) Vitamin D Start: 07-29-2023 take 1 capsule by mouth every week Cholecalciferol (Vitamin D3) 1,250 mcg (50,000 unit) capsule Active 1250 ug PO EVERY WEEK July 29, 2023 1:00am take 1 tablet by mouth once shiela y Cholecalciferol (Vitamin D) 25 MCG (1000 UT) tablet Take 1 tablet by mouth daily. Active Cholecalciferol (Vitamin D) 25 MCG (1000 UT) tablet Take by mouth. Active ciprofloxacin 750 mg oral tablet (11 sources) Quinolone Antimicrobial Start: 04-21-2024 End: 04-22-2024 take 750 mg by mouth every twelve hours 750 mg, Oral, EVERY 12 HOURS, First dose (after last modification) on Sat04/21/24 at 0900, Until Discontinued, Avoid antacid, iron, dairy, sucralfate, and tube feed administration for 1 hour before and 2 hours after dose. Take on an empty stomach. Start: 04-11-2024 End: 05-25-2024 take 1 tablet by mouth twice daily ciprofloxacin 750 mg oral tablet TAKE 1 TABLET BY MOUTH TWICE A DAY Start Date: 05/18/24 Status: Ordered Repeat number: 1 Start: 04-11-2024 End: 04-11-2024 take 1.5 tablets by mouth twice daily Ciprofloxacin 500 MG tablet Take 1.5 tablets by mouth 2 times daily for 10 days. 30 tablet 04/11/2024 04/11/2024 Discontinued Start: 02-02-2024 End: 02-12-2024 Cipro 500 mg oral tablet Dos e : 500 mg = 1 tab(s), Oral, q12h, X 10 day(s), # 20 tab(s), 0 Refill(s), 02/12/24 12:49:00 AM EDT, 109.1 Start Date: 02/02/24 Stop Date: 02/12/24 Status: Ordered clobetasol propionate 0.0005 mg/mg topical ointment (9 sources) Corticosteroid Start: 11-04-2023 Clobetasol 0.0 5 % Ointment Apply bid to affected area for 2 weeks 30 g 2 11/04/2023 Active Continuous Glucose Sensor (FreeStyle Rhonda 3 Sensor) Misc (8 sources) Start: 04-14-2024 Continuous Glu cose Sensor (FreeStyle Rhonda 3 Sensor) Misc Apply 1 Each topically every 14 days. 2 Each 1 04/14/2024 Active CUSTOM MEDICATION (11 sources) Start: 04-22-2024 CUSTOM MEDICAT ION Please Draw a Posaconzole, Trough (Pre drug level) on 04/27/2024 Fax results to [phone], attention (ID Attending): Dr. Adryan Velazquez and (ID Fellow): Dr. Isa Mao 1 Each 04/22/2024 Active Start: 04-22-2024 End: 04-22-2024 CUSTOM MEDICATION Please Kenisha w david Posaconzole, Trough (Pre drug level) on 04/27/2024 Fax results to [phone], attention (ID Attending): Dr. Adryan Velazquez and (ID Fellow): Dr. Isa Mao 1 Each 04/22/2024 04/22/2024 Discontinued diazePAM 5 mg oral tablet (4 sources) Benzodiazepine Start: 01-22-2024 End: 02-11-2024 take 1 tablet by mouth every six hours as needed Diazepam 5 MG tablet Indications: Penile mass Take 1 tablet by mouth every 6 hours as needed for Other (Prevent Erections) for up to 20 days. 40 tablet 1 01/22/2024 02/11/2024 Active diclofenac sodium 0.01 mg/mg topical gel (1 source) Nonsteroidal Anti-inflammatory Drug Start: 02-16-2015 VOLTAREN 1 % gel Indications: Arthralgia of both ankles Apply one application to affected area four times daily as needed. 02/16/2015 Active docusate sodium 100 mg oral capsule (5 sources) Start: 03-16-2024 End: 03-27-2024 take 1 capsule by mouth twice daily docusate 100 MG capsule Take 1 capsule by mouth 2 times daily for 7 days. 14 capsule 03/20/2024 03/27/2024 Active Start: 03-06-2024 End: 03-06-2024 take 100 mg by mouth twice daily 100 mg, Oral, 2 TIMES DAILY, First dose on Sat03/06/24 at 0900, Until Discontinued Start: 01-22-2024 End: 01-29-2024 take 1 capsule by mouth twice daily Docusate 100 MG capsule Take 1 capsule by mouth 2 times daily for 7 days. 14 capsule 01/22/2024 01/29/2024 Active Elastic Bandages & Supports (Medical Compression Stockings) Misc (12 sources) Start: 03-06-2024 End: 06-04-2024 Start: 03-06-2024 End: 06-04-2024 ergocalciferol 1.25 mg oral capsule (20 sources) Provitamin D2 Compound Start: 02-25-2024 ergocalciferol 50,00 0 intl units (1.25 mg) oral capsule Dose : 50,000 International_Unit = 1 cap(s), Oral, qWeek, # 5 cap(s), 2 Refill(s), Pharmacy: [facility], 194.6, cm, 02/25/24 12:24:00 EDT, Height, kg, 02/25/24 12:24:00 EDT, Dosing Weight Start Date: 02/25/24 Status: Ordered Quantity: 5.0 Unit: cap(s) Repeat number: 3 Start: 2023 ergocalciferol 50,000 intl units (1.25 mg) oral capsule Dose : 50,000 International_Unit = 1 cap(s), Oral, qWeek, # 5 cap(s), 2 Refill(s), Pharmacy: [facility], 195, cm, 08/05/23 14:56:00 EST, Height, kg, 08/05/23 14:56:00 EST, Dosing Weight Start Date: 08/30/23 Status: Ordered Start: 07-25-2023 Ergocalciferol (Vitamin D2) 50 mcg (2,000 unit) capsule Active 50 ug PO DAILY July 25, 2023 1:00am Start: 11-07-2022 End: 01-31-2024 take 1 capsule by mouth every week Ergocalciferol 1.25 MG (37541 UT) capsule Take 1 capsule by mouth once a week. 11/07/2022 01/31/2024 Discontinued (Medication Reconciliation (suppress cancel msg)) Start: 02-07-2022 ergocalciferol 50,000 intl units (1.25 mg) oral capsule Dose : 50,000 International_Unit = 1 cap(s), Oral, qWeek, # 12 cap(s), 3 Refill(s), Pharmacy: [facility], 194, cm, 01/18/22 8:34:00 EDT, Height, kg, 01/18/22 8:34:00 EDT, Dosing Weight Start Date: 02/07/22 Status: Ordered Start: 09-05-2021 ergocalciferol 50,000 intl units (1.25 mg) oral capsule Dose : 50,000 International_Unit = 1 cap(s), Oral, qWeek, # 12 cap(s), 3 Refill(s), Pharmacy: [facility], 194, cm, 09/05/21 8:34:00 EST, Height, kg, 09/05/21 8:34:00 EST, Dosing Weight Start Date: 09/05/21 Status: Ordered Start: 01-06-2021 ergocalciferol 50,000 intl units (1.25 mg) oral capsule Dose : 50,000 International_Unit = 1 cap(s), Oral, qWeek, # 12 cap(s), 3 Refill(s), Pharmacy: [facility], 194, cm, 01/06/21 9:53:00 EDT, Height, kg, 01/06/21 9:53:00 EDT, Dosing Weight Start Date: 01/06/21 Status: Ordered Fish Oils (15 sources) Start: 01-16-2022 take 1 mg by mouth o nce daily [place]-3 Fish Oil mg =, Oral, qDay, 0 Refill(s) Start Date: 01/16/22 Status: Ordered Medication Dispense Status: Completed Total Allowed Fills: 1 Fills Dispensed: 0 Start: 01-16-2022 take 1 mg by mouth once daily [place]-3 Fish Oil mg =, Oral, qDay, 0 Refill(s) Start Date: 01/16/22 Status: Ordered Repeat number: 1 Start: 01-16-2022 take 1 mg by mouth once daily [place]-3 Fish Oil mg =, Oral, qDay, 0 Refill(s) Start Date: 01/16/22 Status: Ordered gabapentin 300 mg oral capsule (7 sources) Anti-epileptic Agent Start: 02-15-2025 End: 09-03-2025 gabapentin 300 mg oral capsule Dose : 300 mg = 1 cap(s), Oral, qHS, # 100 cap(s), 1 Refill(s), Pharmacy: [facility], Neuropathy, 195.5, cm, 02/15/25 9:04:00 EDT, Height, 108.3, kg, 02/15/25 9:04:00 EDT, Dosing Weight Start Date: 02/15/25 Stop Date: 09/03/25 Status: Ordered Medication Dispense Status: Completed Quantity: 100.0 Unit: cap(s) Total Allowed Fills: 2 Fills Dispensed: 0 Indications: Polyneuropathy, unspecified; Start: 03-18-2024 End: 04-10-2024 take 1 capsule by mouth three times daily Gabapentin 100 MG capsule Take 1 capsule by mouth 3 times daily for 7 days. 21 capsule 03/20/2024 04/10/2024 Discontinued (Stop Taking at Discharge) Start: 03-05-2024 End: 03-05-2024 take 1 dose by mouth once 300 mg, Oral, ONCE, 1 dose, On Renetta 03/05/24 at 1030, Pre-op/Pre-Proc hydroCHLOROthiazide 25 mg oral tablet (2 sources) Thiazide Diuretic Start: 10-28-2023 hydroCHLOROthiazide 25 mg oral tablet Dose : 25 mg = 1 tab(s), Oral, qDay, # 30 tab(s), 0 Refill(s), Pharmacy: [facility]/pharmacy #[id number], 195, cm, 10/28/23 15:00:00 EDT, Height, kg, 10/28/23 15:00:00 EDT, Dosing Weight Start Date: 10/28/23 Status: Ordered 3 ml insulin aspart, human 100 unt/ml pen injector (8 sources) Insulin Analog Start: 04-14-2024 End: 05-17-2024 insulin aspart (NovoLOG FlexPen) 100 UNIT/ML Solution Pen-injector injection Inject under the skin before meals & at bedtime as directed. Please administer 4 units for small meals and 6 units for large meals. Max daily dose of 18 units. 21 mL 04/14/2024 1:59 PM EDT 04/14/2024 Active lidocaine 25 mg/ml / prilocaine 25 mg/ml topical cream (5 sources) Antiarrhythmic, Amide Local Anesthetic Start: 01-07-2024 Lidocaine-prilocaine 2.5-2.5 % cream Indications: Neoplasm of uncertain behavior of skin As needed for pain in genitalia 30 g 2 01/07/2024 Active lisinopril 30 mg oral tablet (20 sources) Angiotensin Converting Enzyme Inhibitor Start: 02-15-2025 lisinopril 30 mg oral tablet Dose : 30 mg = 1 tab(s), Oral, qHS, # 100 tab(s), 1 Refill(s), Pharmacy: [facility], 195.5, cm, 02/15/25 9:04:00 EDT, Height, kg, 02/15/25 9:04:00 EDT, Dosing Weight Start Date: 02/15/25 Status: Ordered Medication Dispense Status: Completed Quantity: 100.0 Unit: tab(s) Total Allowed Fills: 2 Fills Dispensed: 0 Start: 10-28-2023 End: 04-22-2024 take 1 tablet by mouth once daily Lisinopril 30 mg tablet Active 30 mg PO DAILY January 03, 2024 12:00am take 1.5 tablets by mouth once daily Lisinopril 20 MG tablet Take 1.5 tablets by mouth daily. Active mecobalamin 1 mg chewable tablet (1 source) Start: 07-25-2023 take 1 tablet by mouth once daily Mecobalamin (Vitamin B12) 1,000 mcg tablet,chewable Active 1000 ug PO DAILY July 25, 2023 1:00am metFORMIN hydrochloride 500 mg oral tablet (20 sources) Biguanide Start: 02-15-2025 MetFORMIN (Eqv-Glucophage XR) 500 mg oral tablet, EXTENDED RELEASE Dose : 1,000 mg = 2 tab(s), Oral, BID, # 400 tab(s), 1 Refill(s), Pharmacy: [facility], 195.5, cm, 02/15/25 9:04:00 EDT, Height, kg, 02/15/25 9:04:00 EDT, Dosing Weight Start Date: 02/15/25 Status: Ordered Medication Dispense Status: Completed Quantity: 400.0 Unit: tab(s) Total Allowed Fills: 2 Fills Dispensed: 0 Start: 07-29-2023 take 2 tablets by mo uth twice daily Metformin 500 mg tablet Active 1000 mg PO TWICE A DAY July 29, 2023 4:51pm Start: 06-18-2023 take 2 tablets by mo uth twice daily metFORMIN-XR 500 MG Tab SR 24 HR Take 2 tablets by mouth 2 times daily. 06/18/2023 Active Start: 01-11-2021 End: 09-03-2024 take 1 tablet by mouth once daily Metformin 500 mg tablet Discontinued 500 mg PO DAILY July 25, 2023 1:00am July 29, 2023 4:52pm metoprolol tartrate 50 mg oral tablet (20 sources) beta-Adrenergic Zenon Start: 02-15-2025 Metopr olol Succinate ER 50 mg oral TABLET extended release Dose : 50 mg = 1 tab(s), Oral, qDay, # 100 tab(s), 1 Refill(s), Pharmacy: [facility], 195.5, cm, 02/15/25 9:04:00 EDT, Height, kg, 02/15/25 9:04:00 EDT, Dosing Weight Start Date: 02/15/25 Status: Ordered Medication Dispense Status: Completed Quantity: 100.0 Unit: tab(s) Total Allowed Fills: 2 Fills Dispensed: 0 Start: 01-04-2025 take 1 tablet by adri th once daily Metoprolol Succinate 50 mg tablet extended release 24 hr Active 50 mg PO daily January 04, 2025 12:00am Start: 08-27-2024 Metoprolol Suc cinate ER 50 mg oral TABLET extended release Dose : 50 mg = 1 tab(s), Oral, qDay, # 100 tab(s), 1 Refill(s), Pharmacy: [facility], 195.6, cm, 05/18/24 13:53:00 EST, Height, kg, 05/18/24 13:44:00 EST, Dosing Weight Start Date: 08/27/24 Status: Ordered Quantity: 100.0 Unit: tab(s) Repeat number: 2 Start: 02-25-2024 Metoprolol Suc cinate ER 50 mg oral TABLET extended release Dose : 50 mg = 1 tab(s), Oral, qDay, # 100 tab(s), 1 Refill(s), Pharmacy: [facility], 194.6, cm, 02/25/24 12:24:00 EDT, Height, kg, 02/25/24 12:24:00 EDT, Dosing Weight Start Date: 02/25/24 Status: Ordered Start: 01-20-2024 Metoprolol Suc cinate ER 50 mg oral TABLET extended release Dose : 50 mg = 1 tab(s), Oral, qDay, # 90 tab(s), 0 Refill(s), Pharmacy: [facility], 194.6, cm, 01/01/24 13:03:00 EDT, Height, kg, 01/01/24 13:03:00 EDT, Dosing Weight Start Date: 01/20/24 Status: Ordered Start: 11-22-2023 Metoprolol Suc cinate ER 50 mg oral TABLET extended release Dose : 50 mg = 1 tab(s), Oral, qDay, # 100 tab(s), 0 Refill(s), Pharmacy: [facility]/pharmacy #[id number], 195, henry, 11/22/23 15:32:00 EDT, Height, kg, 11/22/23 15:26:00 EDT, Dosing Weight Start Date: 11/22/23 Status: Ordered Start: 10-28-2023 Metoprolol Suc cinate ER 50 mg oral TABLET extended release Dose : 50 mg = 1 tab(s), Oral, qDay, # 100 tab(s), 0 Refill(s), Pharmacy: [facility], 195, henry, 10/28/23 15:00:00 EDT, Height, kg, 10/28/23 15:00:00 EDT, Dosing Weight Start Date: 10/28/23 Status: Ordered Start: 07-25-2023 End: 01-04-2025 take 1 tablet by mouth once daily Metoprolol Succinate 25 mg tablet extended release 24 hr Discontinued 25 mg PO DAILY July 25, 2023 1:00am January 04, 2025 8:39am Start: 03-19-2023 End: 04-22-2024 take 1 tablet by mouth once daily Metoprolol succinate 50 MG tablet XL Take 1 tablet by mouth daily. 03/19/2023 Active Start: 03-19-2023 take 2 tablets by mo uth once daily Metoprolol succinate 25 MG tablet XL Take 2 tablets by mouth daily. 03/19/2023 Active Start: 01-16-2022 End: 07-06-2023 Metoprolol Succinate ER 25 m g oral TABLET extended release Dose : 25 mg = 1 tab(s), Oral, qDay, # 90 tab(s), 1 Refill(s), Pharmacy: [facility], 195, henry, 01/07/23 10:31:00 EDT, Height, kg, 01/07/23 10:31:00 EDT, Dosing Weight Start Date: 01/07/23 Stop Date: 07/06/23 Status: Ordered Start: 01-06-2021 Metoprolol Suc cinate ER 25 mg oral TABLET extended release Dose : 25 mg = 1 tab(s), Oral, qDay, # 90 tab(s), 3 Refill(s), Pharmacy: [facility], 194, cm, 01/06/21 9:53:00 EDT, Height, kg, 01/06/21 9:53:00 EDT, Dosing Weight Start Date: 01/06/21 Status: Ordered omega-3 acid ethyl esters (residential) 1000 mg oral capsule (16 sources) take 2 capsules by mouth twice daily omega-3 acid ethyl esters 1 g capsule Take 2 capsules by mouth 2 times daily. Active [place]-3 Fatty Acids-Fish Oil (Fish Oil) 300-500 mg capsule (1 source) Start: [place]-3 Fatty Acids-Fish Oil (Fish Oil) 300-500 mg capsule Active NMA PO July 25, 2023 1:00am posaconazole 100 mg delayed release oral tablet (9 sources) Azole Antifungal Start: End: take 1 dose by mouth once 300 mg, Oral, ONCE, 1 dose, On Sat04/22/24 at 1545, Administer with a full meal or an oral liquid nutritional supplement. Start: 04-22-2024 End: 06-04-2024 take 3 tablets by mouth every twenty-four hours posaconazole 100 mg oral delayed release tablet TAKE 3 TABLETS BY MOUTH EVERY 24 HOURS Start Date: 05/18/24 Status: Ordered Repeat number: 1 prochlorperazine 10 mg oral tablet (9 sources) Phenothiazine Start: 04-27-2024 take 1 tablet by mouth every six hours as needed Prochlorperazine 10 MG tablet Take 1 tablet by mouth every 6 hours as needed for Nausea / Vomiting. 60 tablet 04/27/2024 Active Start: 04-20-2024 End: 04-20-2024 10 mg, Intravenous, ONCE, 1 dose, On 04/20/24 at 1515, For IV route: dilute dose with 10mL normal saline and give by slow IV push at a rate of 5mg/min. Maximum of 40mg/day. Start: 01-22-2024 End: 01-22-2024 take 5 mg intravenously every hour as needed 5 mg, Intravenous, Administer over 5 Minutes, EVERY 1 HOUR NEEDED, Starting on Sat01/22/24 at 1137, Until Sat01/22/24 at 1650, Refractory Nausea Vomiting, SECOND Line, Use if patient still experiencing nausea/vomiting after 1st line antiemetic. For IV route: dilute dose with 10mL normal saline and give by slow IV push at a rate of 5mg/min. Maximum of 40mg/day., Recovery rivaroxaban 20 mg oral tablet (20 sources) Factor Xa Inhibitor Start: 09-08-2024 Xarelto 20 mg oral tablet Dose : 20 mg = 1 tab(s), Oral, with supper, # 30 tab(s), 11 Refill(s), Pharmacy: [facility]/pharmacy #[id number], 195.6, cm, 09/08/24 15:11:00 EST, Height, 112.4, kg, 09/08/24 15:11:00 EST, Dosing Weight Start Date: 09/08/24 Status: Ordered Medication Dispense Status: Completed Quantity: 30.0 Unit: tab(s) Total Allowed Fills: 12 Fills Dispensed: 0 Start: 01-07-2023 End: 06-18-2024 take 1 tablet by mouth once daily at dinner Rivaroxaban (Xarelto) 20 mg tablet Active 20 mg PO DAILY July 25, 2023 1:00am must administer with evening meal Start: 01-16-2022 End: 01-11-2023 Xarelto 15 mg oral tablet Do se : 15 mg = 1 tab(s), Oral, qPM, TAKE 1 TABLET BY MOUTH WITH SUPPER, # 90 tab(s), 3 Refill(s), Pharmacy: [facility]/pharmacy #[id number], 194, cm, 01/16/22 13:46:00 EDT, Height, 111.2, kg, 01/16/22 13:46:00 EDT, Dosing Weight Start Date: 01/16/22 Stop Date: 01/11/23 Status: Ordered Start: 10-22-2016 Xarelto 15 mg oral tablet Dose : 15 mg = 1 tab(s), Oral, qPM, TAKE 1 TABLET BY MOUTH WITH SUPPER, # 90 tab(s), 3 Refill(s), Pharmacy: [facility]/pharmacy #[id number], 194, cm, 01/06/21 9:53:00 EDT, Height, 113.2, kg, 01/06/21 9:53:00 EDT, Dosing Weight Start Date: 01/06/21 Status: Ordered rosuvastatin calcium 10 mg oral tablet (20 sources) HMG-CoA Reductase Inhibitor Start: 02-15-2025 rosuvastatin 10 mg oral tablet Dose : 10 mg = 1 tab(s), Oral, qDay, # 100 tab(s), 1 Refill(s), Pharmacy: [facility], 195.5, henry, 02/15/25 9:04:00 EDT, Height, kg, 02/15/25 9:04:00 EDT, Dosing Weight Start Date: 02/15/25 Status: Ordered Medication Dispense Status: Completed Quantity: 100.0 Unit: tab(s) Total Allowed Fills: 2 Fills Dispensed: 0 Start: 07-25-2023 End: 07-29-2023 take 1 tablet by mouth once daily Rosuvastatin 5 mg tablet Discontinued 5 mg PO DAILY July 25, 2023 1:00am July 29, 2023 4:51pm Start: 01-07-2023 End: 04-22-2024 take 1 tablet by mouth once daily Rosuvastatin 10 mg tablet Active 10 mg PO DAILY July 29, 2023 1:00am Start: 08-23-2022 rosuvastatin 1 0 mg oral tablet Dose : 10 mg = 1 tab(s), Oral, qDay, # 90 tab(s), 1 Refill(s), Pharmacy: [facility], 194, henry, 04/26/22 15:24:00 EDT, Height, kg, 04/26/22 15:24:00 EDT, Dosing Weight Start Date: 08/23/22 Status: Ordered Start: 02-07-2022 rosuvastatin 1 0 mg oral tablet Dose : 10 mg = 1 tab(s), Oral, qDay, # 90 tab(s), 1 Refill(s), Pharmacy: [facility], 194, cm, 01/18/22 8:34:00 EDT, Height, kg, 01/18/22 8:34:00 EDT, Dosing Weight Start Date: 02/07/22 Status: Ordered Start: 09-05-2021 rosuvastatin 1 0 mg oral tablet Dose : 10 mg = 1 tab(s), Oral, qDay, # 90 tab(s), 1 Refill(s), Pharmacy: [facility], 194, cm, 09/05/21 8:34:00 EST, Height, kg, 09/05/21 8:34:00 EST, Dosing Weight Start Date: 09/05/21 Status: Ordered Start: 03-23-2021 rosuvastatin 1 0 mg oral tablet Dose : 10 mg = 1 tab(s), Oral, qDay, # 90 tab(s), 1 Refill(s), Pharmacy: [facility], 194, cm, 02/02/21 8:39:00 EDT, Height, kg, 02/02/21 8:39:00 EDT, Dosing Weight Start Date: 03/23/21 Status: Ordered semaglutide 7 mg oral tablet (1 source) Start: 01-18-2022 Rybelsus 7 mg oral tablet Dose : 7 mg = 1 tab(s), Oral, qDay, take at least 30 minutes before first food, beverage, or other oral meds, # 30 tab(s), 4 Refill(s), other reason (Rx) Start Date: 01/18/22 Status: Ordered sildenafil 25 mg oral tablet (13 sources) Phosphodiesterase 5 Inhibitor Start: 02-15-2025 sildenafil 25 mg oral tablet Dose : 25 mg = 1 tab(s), Oral, qDay, Can take up to 50mg. 1 hour before sexual activity, # 90 tab(s), 0 Refill(s), Pharmacy: [facility], Erectile dysfunction, 195.5, cm, 02/15/25 9:04:00 EDT, Height, kg, 02/15/25 9:04:00 EDT, Dosing Weight Start Date: 02/15/25 Status: Ordered Medication Dispense Status: Completed Quantity: 90.0 Unit: tab(s) Total Allowed Fills: 1 Fills Dispensed: 0 Indications: Male erectile dysfunction, unspecified; Start: 06-17-2023 sildenafil 25 mg oral tablet Dose : 25 mg = 1 tab(s), Oral, qDay, Can take up to 50mg. 1 hour before sexual activity, # 90 tab(s), 0 Refill(s), Pharmacy: [facility], Erectile dysfunction, 195, cm, 06/17/23 16:04:00 EST, Height, kg, 06/17/23 16:04:00 EST, Dosing Weight Start Date: 06/17/23 Status: Ordered Quantity: 90.0 Unit: tab(s) Repeat number: 1 Indication: Male erectile dysfunction, unspecified Start: 02-22-2023 sildenafil 25 mg oral tablet Dose : 25 mg = 1 tab(s), Oral, qDay, Can take up to 50mg. 1 hour before sexual activity, # 90 tab(s), 0 Refill(s), Pharmacy: [facility], Erectile dysfunction, 195, cm, 01/07/23 10:31:00 EDT, Height, kg, 01/07/23 10:31:00 EDT, Dosing Weight Start Date: 02/22/23 Status: Ordered tamsulosin hydrochloride 0.4 mg oral capsule (20 sources) alpha-Adrenergic Zenon Start: 02-25-2024 End: 08-14-2025 Flomax 0.4 mg oral capsule Dose : 0.4 mg = 1 cap(s), Oral, qDay, # 100 cap(s), 1 Refill(s), Pharmacy: [facility], Kidney stone, 195.5, cm, 02/15/25 9:04:00 EDT, Height, kg, 02/15/25 9:04:00 EDT, Dosing Weight Start Date: 02/15/25 Stop Date: 08/14/25 Status: Ordered Medication Dispense Status: Completed Quantity: 100.0 Unit: cap(s) Total Allowed Fills: 2 Fills Dispensed: 0 Indications: Calculus of kidney; Turmeric extract (20 sources) Start: 07-25-2023 Turmeric 400 m g capsule Active 400 mg PO July 25, 2023 1:00am Start: 03-12-2019 turmeric 500 m g oral capsule Dose : 500 mg = 1 cap(s), Oral, Daily, 0 Refill(s) Start Date: 03/12/19 Status: Ordered Medication Dispense Status: Completed Total Allowed Fills: 1 Fills Dispensed: 0 Turmeric (QC ABDOULAYE JAMES COMPLEX PO) Take by mouth. Suspended Turmeric (QC ABDOULAYE JAMES COMPLEX PO) Take by mouth. Active vitamin b12 1 mg oral tablet (17 sources) Vitamin B12 Start: 01-06-2021 Vitamin B12 10 00 mcg oral tablet Dose : 1,000 mcg = 1 tab(s), Oral, qDay, # 90 tab(s), 3 Refill(s), Pharmacy: [facility], 194, cm, 01/06/21 9:53:00 EDT, Height, kg, 01/06/21 9:53:00 EDT, Dosing Weight Start Date: 01/06/21 Status: Ordered take 1 tablet by mouth once shiela y cyanocobalamin 100 MCG tablet Take 1 tablet by mouth daily. Active Vitamin B12 1000 mcg oral tablet (16 sources) Start: 02-15-2025 Vitamin B12 10 00 mcg oral tablet Dose : 1,000 mcg = 1 tab(s), Oral, qDay, # 90 tab(s), 3 Refill(s), Pharmacy: [facility], 195.5, cm, 02/15/25 9:04:00 EDT, Height, kg, 02/15/25 9:04:00 EDT, Dosing Weight Start Date: 02/15/25 Status: Ordered Medication Dispense Status: Completed Quantity: 90.0 Unit: tab(s) Total Allowed Fills: 4 Fills Dispensed: 0 Start: 01-06-2021 Vitamin B12 10 00 mcg oral tablet Dose : 1,000 mcg = 1 tab(s), Oral, qDay, # 90 tab(s), 3 Refill(s), Pharmacy: [facility], 194, cm, 01/06/21 9:53:00 EDT, Height, kg, 01/06/21 9:53:00 EDT, Dosing Weight Start Date: 01/06/21 Status: Ordered Quantity: 90.0 Unit: tab(s) Repeat number: 4 Start: 01-06-2021 Vitamin B12 10 00 mcg oral tablet Dose : 1,000 mcg = 1 tab(s), Oral, qDay, # 90 tab(s), 3 Refill(s), Pharmacy: [facility], 194, cm, 01/06/21 9:53:00 EDT, Height, kg, 01/06/21 9:53:00 EDT, Dosing Weight Start Date: 01/06/21 Status: Ordered Vitamin D3 50 mcg (2000 intl units) oral tablet (1 source) Start: 02-15-2025 take 1 tablet by mouth once, then take 1 tablet by mouth once daily Vitamin D3 50 mcg (2000 intl units) oral tablet Dose : 50 mcg = 1 tab(s), Oral, Daily, # 100 tab(s), 3 Refill(s), Pharmacy: [facility], Vitamin D deficiency, 195.5, cm, 02/15/25 9:04:00 EDT, Height, kg, 02/15/25 9:04:00 EDT, Dosing Weight Start Date: 02/15/25 Status: Ordered Medication Dispense Status: Completed Quantity: 100.0 Unit: tab(s) Total Allowed Fills: 4 Fills Dispensed: 0 Indications: Vitamin D deficiency, unspecified; Completed/Discontinued Medications Medication Drug Class(es) Dates Sig (Normalized) Sig (Original) acetaminophen 325 mg oral tablet (20 sources) Start: 04-21-2024 End: 04-22-2024 take 1 tablet by mouth every six hours as needed 650 mg, Oral, EVERY 6 HOURS NEEDED, Starting on Sat04/21/24 at 0538, Until Sat04/22/24 at 2023, Mild Pain, Maximum dose of acetaminophen is 4000 mg from all sources in 24 hours. Start: 04-14-2024 End: 04-24-2024 take 2 tablets by mouth every four hours as needed Acetaminophen 325 MG tablet Take 2 tablets by mouth every 4 hours as needed for Mild Pain for up to 10 days. 04/14/2024 Active Start: 04-12-2024 End: 04-14-2024 take 1 tablet by mouth every twenty-four hours 325 mg, Oral, EVERY 24 HOURS, First dose on 04/12/24 at 2300, Until Discontinued, Give just prior to each amphotericin b dose Start: 04-12-2024 End: 04-14-2024 take 1 tablet by mouth every four hours as needed 650 mg, Oral, EVERY 4 HOURS NEEDED, Starting on 04/12/24 at 2221, Until Sat04/14/24 at 1632, temperature greater than 100 degrees, Maximum dose of acetaminophen is 4000 mg from all sources in 24 hours. Start: 04-10-2024 End: 04-16-2024 take 2 tablets by mouth every eight hours Acetaminophen 325 MG tablet Take 2 tablets by mouth every 8 hours for 5 days. 30 tablet 04/11/2024 04/14/2024 Discontinued Start: 04-09-2024 End: 04-11-2024 take 1 tablet by mouth every four hours as needed 650 mg, Oral, EVERY 4 HOURS NEEDED, Starting on Renetta 04/09/24 at 2037, Until 04/11/24 at 1733, temperature greater than 100 degrees, Maximum dose of acetaminophen is 4000 mg from all sources in 24 hours. Start: 03-20-2024 End: 04-10-2024 take 2 tablets by mouth every six hours Acetaminophen 325 MG tablet Take 2 tablets by mouth every 6 hours for 7 days. 56 tablet 03/20/2024 04/10/2024 Discontinued (Stop Taking at Discharge) Start: 03-16-2024 End: 03-20-2024 take 1 tablet by mouth every four hours as needed 650 mg, Oral, EVERY 4 HOURS NEEDED, Starting on 03/16/24 at 1810, Until 03/20/24 at 2001, temperature greater than 100 degrees, Maximum dose of acetaminophen is 4000 mg from all sources in 24 hours. Start: 03-06-2024 End: 03-20-2024 take 2 tablets by mouth every four hours Acetaminophen 325 MG tablet Take 2 tablets by mouth every 4 hours for 7 days. 80 tablet 03/06/2024 03/20/2024 Discontinued (Stop Taking at Discharge) Start: 03-05-2024 End: 03-06-2024 650 mg, Oral, EVERY 4 HOURS, First dose on Renetta 03/05/24 at 2200, Until Discontinued, Maximum dose of acetaminophen is 4000 mg from all sources in 24 hours. Start: 03-05-2024 End: 03-05-2024 take 4000 mg by mouth every twenty-four hours 975 mg, Oral, ONCE, 1 dose, On Renetta 03/05/24 at 1030, Maximum dose of acetaminophen is 4000 mg from all sources in 24 hours., Pre-op/Pre-Proc Start: 01-22-2024 End: 03-06-2024 take 1 tablet by mouth three times daily, then take 4 tablets by mouth in the evening Acetaminophen 325 MG tablet Take 1 tablet by mouth 3 times daily (at 8am, 4 pm and 10pm). 01/22/2024 03/06/2024 Discontinued (Stop Taking at Discharge) Start: 01-22-2024 End: 01-22-2024 650 mg, Oral, EVERY 6 HOURS, First dose on Sat01/22/24 at 1330, Until Discontinued, Maximum dose of acetaminophen is 4000 mg from all sources in 24 hours., Post-op/Post-Proc Start: 07-25-2023 take 1 tablet by adri th every six hours as needed for pain Acetaminophen (Tylenol Extra Strength) 500 mg tablet Active 500 mg PO EVERY 6 HOURS as needed for fever or pain July 25, 2023 1:00am acetaminophen (T YLENOL EXTRA STRENGTH) 500 mg tablet Indications: Arthralgia of both ankles Take 1,000 mg by mouth as needed. Active aluminum hydroxide 40 mg/ml / magnesium hydroxide 40 mg/ml / simethicone 4 mg/ml oral suspension (5 sources) Start: 04-21-2024 End: 04-22-2024 take 30 mL by mouth every six hours as needed 30 mL, Oral, EVERY 6 HOURS NEEDED, Starting on Sat04/21/24 at 0538, Until Sat04/22/24 at 2023, Indigestion, Per 5 mL is equivalent to: (Alum-Mag Hydroxide 200-225 mg and Simethicone 20 mg) and (Alum-Mag Hydroxide 200-200 mg and Simethicone 20 mg) Start: 04-12-2024 End: 04-14-2024 take 30 mL by mouth every six hours as needed Start: 04-09-2024 End: 04-11-2024 take 30 mL by mouth every six hours as needed 30 mL, Oral, EVERY 6 HOURS NEEDED, Starting on Renetta 04/09/24 at 2037, Until 04/11/24 at 1733, Indigestion, Per 5 mL is equivalent to: (Alum-Mag Hydroxide 200-225 mg and Simethicone 20 mg) and (Alum-Mag Hydroxide 200-200 mg and Simethicone 20 mg) Start: 03-16-2024 End: 03-20-2024 take 30 mL by mouth every six hours as needed 30 mL, Oral, EVERY 6 HOURS NEEDED, Starting on 03/16/24 at 1810, Until Sat03/20/24 at 2001, Indigestion, Per 5 mL is equivalent to: (Alum-Mag Hydroxide 200-225 mg and Simethicone 20 mg) and (Alum-Mag Hydroxide 200-200 mg and Simethicone 20 mg) Start: 03-05-2024 End: 03-06-2024 take 30 mL by mouth every six hours as needed amphotericin B LIPOSOME (AMBISOME) 500 mg in Dextrose 5%, with overfill 400 mL (total volume) IVPB (2 sources) Start: 04-13-2024 End: 04-14-2024 500 mg (rounded from 480 mg = 5 mg/kg 96 kg Adjusted weight), Intravenous, Administer over 2 Hours, EVERY 24 HOURS, First dose on Sat04/13/24 at 2330, Until Discontinued, Amphotericin B liposomal is NOT compatible with normal saline. Flush line with D5W before and after administration. Start: 04-12-2024 End: 04-12-2024 500 mg (rounded from 480 mg = 5 mg/kg 96 kg Adjusted weight), Intravenous, Administer over 2 Hours, ONCE, 1 dose, On Sat04/12/24 at 2330, Amphotericin B liposomal is NOT compatible with normal saline. Flush line with D5W before and after administration. calcium chloride 0.0014 meq/ ml / potassium chloride 0.004 meq/ml / sodium chloride 0.103 meq/ml / sodium lactate 0.028 meq/ml injectable solution (8 sources) Start: 04-21-2024 End: 04-22-2024 Intravenous, at 100 mL/hr, CONTINUOUS, Starting on Sat04/22/24 at 0815, Until Sat04/22/24 at 1614 Start: 04-10-2024 End: 04-11-2024 Intravenous, at 100 mL/hr, C ONTINUOUS, Starting on Sat04/10/24 at 0000, Until Sat04/11/24 at 1733 Start: 03-16-2024 End: 03-20-2024 Intravenous, at 75 mL/hr, CO NTINUOUS, Starting on Sat03/16/24 at 1815, Until Sat03/20/24 at 2001 Start: 03-16-2024 End: 03-16-2024 1,000 mL, Intravenous, ONCE, 1 dose, On Sat03/16/24 at 1530 Start: 03-05-2024 End: 03-06-2024 Intravenous, at 125 mL/hr, C ONTINUOUS, Starting on Sat03/05/24 at 2000, Until Sat03/06/24 at 1031 Start: 01-22-2024 End: 01-22-2024 Intravenous, at 100 mL/hr, C ONTINUOUS, Starting on Sat01/22/24 at 1330, Until Sat01/22/24 at 1650, Saline lock when tolerating oral intake and remove IV per [facility] protocol., Post-op/Post-Proc ceFAZolin 2000 mg injection (1 source) Cephalosporin Antibacterial Start: 03-06-2024 End: 03-06-2024 take 2 g intravenously every eight hours 2 g, Intravenous, Administer over 30 Minutes, EVERY 8 HOURS NON-STANDARD, 3 doses, First dose on Sat03/06/24 at 0100, Last dose on Sat03/06/24 at 1700 50 ml clindamycin 18 mg/ml injection (2 sources) Lincosamide Antibacterial Start: 03-16-2024 End: 03-16-2024 900 mg, Intravenous, Administer over 30 Minutes, EVERY 8 HOURS, First dose on Sat03/16/24 at 2200, Until Discontinued Start: 03-16-2024 End: 03-16-2024 900 mg, Intravenous, Adminis ter over 30 Minutes, ONCE, 1 dose, On Sat03/16/24 at 1500 cyclobenzaprine hydrochloride 5 mg oral tablet (5 sources) Muscle Relaxant Start: 03-20-2024 End: 04-10-2024 take 1 tablet by mouth three times daily as needed for pain Cyclobenzaprine 5 MG tablet Take 1 tablet by mouth 3 times daily as needed for Muscle spasms or Moderate Pain for up to 7 days. 15 tablet 03/20/2024 04/10/2024 Discontinued (Stop Taking at Discharge) Start: 03-19-2024 End: 03-20-2024 take 5 mg by mouth three times daily as needed for pain 5 mg, Oral, 3 TIMES DAILY NEEDED, Starting on Sat03/19/24 at 1028, Until Sat03/20/24 at 2001, Muscle spasms, Moderate Pain diphenhydrAMINE hydrochloride 25 mg oral tablet (2 sources) Histamine-1 Receptor Antagonist Start: 04-20-2024 End: 04-20-2024 12.5 mg, Intravenous, ONCE, 1 dose, On 04/20/24 at 1700 Start: 04-12-2024 End: 04-14-2024 take 1 tablet by mouth every twenty-four hours 25 mg, Oral, EVERY 24 HOURS, First dose on 04/12/24 at 2300, Until Discontinued, Give 30 minutes prior to each amphotericin b dose 0.4 ml enoxaparin sodium 100 mg/ml prefilled syringe (12 sources) Low Molecular Weight Heparin Start: 03-06-2024 End: 04-03-2024 inject 0.4 mL by subcutaneous injection once daily Enoxaparin Sodium 40 MG/0.4ML injection Inject 0.4 mL under the skin daily. Please perform injections as you were taught by your nursing team prior to your discharge from the hospital. Please stop after you have spoken to Dr. Maurer's office when you restart Xarelto. 11.2 mL 03/06/2024 03/20/2024 Discontinued (Stop Taking at Discharge) Start: 02-13-2024 End: 03-06-2024 inject 0.4 mL by subcutaneous injection once daily in the morning Enoxaparin Sodium 100 MG/ML Solution Prefilled Syringe injection Inject 0.4 mL under the skin daily for 3 days. Start 03/02/24 Last dose will be AM of 03/04/24 3 mL 02/13/2024 03/06/2024 Discontinued (Stop Taking at Discharge) Start: 01-22-2024 End: 01-25-2024 inject 0.4 mL by subcutaneous injection once daily in the morning Enoxaparin Sodium 100 MG/ML Solution Prefilled Syringe injection Inject 0.4 mL under the skin daily for 3 days. Start 01/19/24 Last dose will be AM of 01/21/24 3 mL 01/22/2024 Active Start: 01-22-2024 End: 01-25-2024 inject 0.4 mL by subcutaneous injection once daily Enoxaparin Sodium 40 MG/0.4ML injection Inject 0.4 mL under the skin daily for 3 days. 1.2 mL 01/22/2024 01/25/2024 Active Start: 01-17-2024 End: 01-22-2024 inject 1 mL by subcutaneous injection twice daily in the morning Enoxaparin Sodium 100 MG/ML Solution Prefilled Syringe injection Inject 1 mL under the skin 2 times daily for 5 doses. Start 01/19/24 Last dose will be AM of 01/21/24 5 mL 01/17/2024 01/22/2024 Discontinued famotidine (PF) (PEPCID) injection 20 mg (1 source) Start: 03-05-2024 End: 03-06-2024 famotidine (PF) (PEPCID) injection 20 mg 2 ml fentaNYL 0.05 mg/ml injection (1 source) Opioid Agonist Start: 01-22-2024 End: 01-22-2024 25 mcg, Intravenous, Administer over 2 Minutes, EVERY 5 MINUTES NEEDED, 6 doses, Starting on Sat01/22/24 at 1137, Until Sat01/22/24 at 1650, Severe Pain, Moderate Pain, Additional dose may be administered only if first dose did not result in adverse effects (RR 250 ml glucose 50 mg/ml injection (1 source) Start: 04-12-2024 End: 04-14-2024 50 mL, Intravenous, NEEDED, Starting on Sat04/12/24 at 2222, Until Sat04/14/24 at 1632, See admin instructions, Use sufficient volume to flush entire line BEFORE and AFTER amphotericin B liposomal administration. 1 ml haloperidol 5 mg/ml prefilled syringe (1 source) Typical Antipsychotic Start: 01-22-2024 End: 01-22-2024 1 mg, Intravenous, ONCE NEEDED, 1 dose, Starting on Sat01/22/24 at 1137, Until Sat01/22/24 at 1219, FIRST line Nausea/vomiting,, If patient still experiencing nausea/vomiting after 1st dose use 2nd line antiemetic, Recovery 250 ml heparin sodium, porcine 100 unt/ml injection (6 sources) Unfractionated Heparin, Anti-coagulant Start: 04-21-2024 End: 04-22-2024 CONTINUOUS, Starting on Sat04/21/24 at 0600, Until Sat04/22/24 at 2023, STANDARD SLIDING SCALE FOR PATIENTS WEIGHT LESS THAN 125KG: Initiate dose at 18 units/kg/hr. If PTT is less than 47, increase dose by 3 units/kg/hr. If PTT is 47-60, increase dose by 2 units/kg/hr. If PTT is 61-71, increase dose by 1 unit/kg/hr. If PTT is 72-95, no change. If PTT is 96-111, decrease dose by 1 unit/kg/hr. If PTT is 112-126, hold infusion for 60 minutes and decrease dose by 2 units/kg/hr. If PTT greater than 126, hold infusion and check PTT every 2 hours. Once PTT is in goal range or below, restart infusion at 3 units/kg/hr lower than the most recent dose. Note: Round PTT to nearest whole number (e.g. 70.5=71, 70.4=70)., Indications: Deep Vein Thrombosis Start: 04-09-2024 End: 04-11-2024 CONTINUOUS, Starting on Renetta 04/09/24 at 2130, Until 04/11/24 at 0752, INTERMEDIATE/CARDIAC SLIDING SCALE FOR PATIENTS EQUAL TO OR GREATER THAN 65KG: Initiate dose at 12 units/kg/hr. If PTT is less than 47, increase dose by 3 units/kg/hr. If PTT is 47-60, increase dose by 2 units/kg/hr. If PTT is 61-71, increase dose by 1 unit/kg/hr. If PTT is 72-95, no change. If PTT is 96-111, decrease dose by 1 unit/kg/hr. If PTT is 112-126, hold infusion for 60 minutes and decrease dose by 2 units/kg/hr. If PTT greater than 126, hold infusion and check PTT every 2 hours. Once PTT is in goal range or below, restart infusion at 3 units/kg/hr lower than the most recent dose. Note: Round PTT to nearest whole number (e.g. 70.5=71, 70.4=70)., Indications: Pulmonary Embolism Start: 03-19-2024 End: 03-20-2024 CONTINUOUS, Starting on Renetta 03/19/24 at 2315, Until 03/20/24 at 2001, INTERMEDIATE/CARDIAC SLIDING SCALE FOR PATIENTS EQUAL TO OR GREATER THAN 65KG: Initiate dose at 12 units/kg/hr. If PTT is less than 47, increase dose by 3 units/kg/hr. If PTT is 47-60, increase dose by 2 units/kg/hr. If PTT is 61-71, increase dose by 1 unit/kg/hr. If PTT is 72-95, no change. If PTT is 96-111, decrease dose by 1 unit/kg/hr. If PTT is 112-126, hold infusion for 60 minutes and decrease dose by 2 units/kg/hr. If PTT greater than 126, hold infusion and check PTT every 2 hours. Once PTT is in goal range or below, restart infusion at 3 units/kg/hr lower than the most recent dose. Note: Round PTT to nearest whole number (e.g. 70.5=71, 70.4=70)., Indications: Deep Vein Thrombosis Start: 03-06-2024 End: 03-06-2024 inject 1 dose by subcutaneous injection once daily 5,000 Units, Subcutaneous, ONCE, 1 dose, On Sat03/06/24 at 0045, DO NOT ADMINISTER ON DAY OF SURGERY/INVASIVE PROCEDURE UNLESS OTHERWISE DIRECTED. Start: 03-05-2024 End: 03-05-2024 inject 1 dose by subcutaneous injection once 5,000 Units, Subcutaneous, ONCE, 1 dose, On Renetta 03/05/24 at 1030, Pre-op/Pre-Proc 1 ml hydrALAZINE hydrochloride 20 mg/ml injection (1 source) Arteriolar Vasodilator Start: 01-22-2024 End: 01-22-2024 5 mg, Intravenous, EVERY 15 MINUTES NEEDED, 4 doses, Starting on Sat01/22/24 at 1137, Until Sat01/22/24 at 1650, SBP > 160 mmHg with HR 160 Use if HR hydroCHLOROthiazide 12.5 mg / lisinopril 20 mg oral tablet (20 sources) Thiazide Diuretic, Angiotensin Converting Enzyme Inhibitor Start: 07-29-2023 End: 01-03-2024 Lisinopril-Hydrochl orothiazide 20-12.5 mg tablet Discontinued 1 {tbl} PO DAILY July 29, 2023 1:00am January 03, 2024 10:45am Start: 07-25-2023 End: 01-31-2024 Lisinopril-Hydrochlorothiazi de 10-12.5 mg tablet Discontinued 1 {tbl} PO DAILY July 25, 2023 1:00am July 29, 2023 4:51pm Start: 01-07-2023 take 1 tablet by adri th once daily hydrochlorothiazide-lisinopril 12.5 mg-2 0 mg oral tablet Dose = 1 tab(s), Oral, Daily, # 90 tab(s), 1 Refill(s), Pharmacy: [facility], 195, cm, 01/07/23 10:31:00 EDT, Height, kg, 01/07/23 10:31:00 EDT, Dosing Weight Start Date: 01/07/23 Status: Ordered Start: 09-21-2022 take 1 tablet by adri th once daily hydrochlorothiazide-lisinopril 12.5 mg-2 0 mg oral tablet Dose = 1 tab(s), Oral, Daily, # 90 tab(s), 3 Refill(s), Pharmacy: [facility], 194, cm, 04/26/22 15:24:00 EDT, Height, kg, 04/26/22 15:24:00 EDT, Dosing Weight Start Date: 09/21/22 Status: Ordered Start: 11-29-2021 take 1 tablet by adri th once daily hydrochlorothiazide-lisinopril 25 mg-20 mg oral tablet Dose = 1 tab(s), Oral, Daily, # 90 tab(s), 3 Refill(s), Pharmacy: [facility], 194, cm, 09/05/21 8:34:00 EST, Height Start Date: 11/29/21 Status: Ordered Start: 03-23-2021 take 1 tablet by adri th once daily hydrochlorothiazide-lisinopril 25 mg-20 mg oral tablet Dose = 1 tab(s), Oral, Daily, # 90 tab(s), 1 Refill(s), Pharmacy: [facility], 194, cm, 02/02/21 8:39:00 EDT, Height, kg, 02/02/21 8:39:00 EDT, Dosing Weight Start Date: 03/23/21 Status: Ordered Start: 01-06-2021 take 1 tablet by adri th once daily hydrochlorothiazide-lisinopril 12.5 mg-2 0 mg oral tablet Dose = 1 tab(s), Oral, Daily, # 90 tab(s), 3 Refill(s), Pharmacy: [facility], 194, cm, 01/06/21 9:53:00 EDT, Height, kg, 01/06/21 9:53:00 EDT, Dosing Weight Start Date: 01/06/21 Status: Ordered take 10-12.5 mg by mouth once lisinopril-hydrochlorothiazide (PRINZIDE,ZESTORETIC) 10-12.5 mg per tablet Take 1 tablet by mouth once daily. Active 1 ml HYDROmorphone hydrochloride 1 mg/ml cartridge (1 source) Opioid Agonist Start: 03-05-2024 End: 03-05-2024 0.5 mg, Intravenous, EVERY 10 MINUTES NEEDED, 8 doses, Starting on Sat03/05/24 at 1736, Until Sat03/05/24 at 2049, Moderate Pain, Severe Pain, May give a total of 4mg in PACU., Recovery ibuprofen 200 mg oral tablet (3 sources) Nonsteroidal Anti-inflammatory Drug Start: 03-18-2024 End: 03-20-2024 take 1 tablet by mouth every six hours as needed 200 mg, Oral, EVERY 6 HOURS NEEDED, Starting on Sat03/18/24 at 0839, Until Sat03/20/24 at 2001, Mild Pain, Moderate Pain, Give with food Start: 01-22-2024 End: 01-22-2024 take 600 mg by mouth every six hours at mealtime 600 mg, Oral, EVERY 6 HOURS, First dose on Sat01/22/24 at 1330, Until Discontinued, Give with food, Post-op/Post-Proc Start: 07-25-2023 take 1 tablet by adri th every six hours as needed for pain Ibuprofen 600 mg tablet Active 600 mg PO EVERY 6 HOURS as needed for pain July 25, 2023 1:00am 3 ml insulin lispro 100 unt/ml pen injector (1 source) Insulin Analog Start: 04-14-2024 End: 04-14-2024 Insulin lispro, 1 Unit Dial, 100 UNIT/ML Solution Pen-injector 6 Units for Large Meal or 4 Units for Small Meal MAX DAILY DOSE OF 18 UNITS 15 mL 1 04/14/2024 04/14/2024 Discontinued (Stop Taking at Discharge) Insulin lispro (HUMALOG) injection (3 sources) Start: 04-20-2024 End: 04-22-2024 Insulin lispro (HUMALOG) injection Start: 04-12-2024 End: 04-14-2024 Insulin lispro (HUMALOG) inj ection Start: 03-16-2024 End: 03-20-2024 Insulin lispro (HUMALOG) inj ection Insulin regular (HUMULIN R;NOVOLIN R) injection (2 sources) Start: 03-06-2024 End: 03-06-2024 Insulin regular (HUMULIN R;NOVOLIN R) injection Start: 03-06-2024 End: 03-06-2024 inject 1 dose by subcutaneous injection every six hours Subcutaneous, EVERY 6 HOURS, First dose on Sat03/06/24 at 0600, Until Discontinued, Correction factor parameters most appropriate for NPO or tube feeding patients: Blood glucose under 60 = call H.O.; 151 - 200 = 2 units; 201 - 250 = 4 units; 251 - 300 = 6 units; 301 - 350 = 8 units; 351 - 400 = 10 units; Over 400 = call H.O. An initial vial will be sent from the pharmacy without prompting. Replacement vials require a MAR request when needed. Call pharmacy to coordinate expedited delivery if an emergent dose is needed for hyperglycemia treatment. Iohexol (OMNIPAQUE) 300 MG/ML 50 mL in Water liquid (free water) 950 mL (4 sources) Start: 09-25-2024 End: 09-25-2024 take 1 dose by mouth once 15,000 mg, Oral, ONCE, 1 dose, On Sat09/25/24 at 1330, For administration to inpatients, to be given by RN on inpatient nursing unit., CT Procedure Start: 05-11-2024 End: 05-11-2024 take 1 dose by mouth once 15,000 mg, Oral, ONCE, 1 dos e, On Sat05/11/24 at 1430, For administration to inpatients, to be given by RN on inpatient nursing unit., CT Procedure Start: 01-31-2024 End: 01-31-2024 take 1 dose by mouth once 15,000 mg, Oral, ONCE, 1 dos e, On Sat01/31/24 at 1030, For administration to inpatients, to be given by RN on inpatient nursing unit., CT Procedure Start: 11-29-2023 End: 11-29-2023 take 1 dose by mouth once 15,000 mg, Oral, ONCE, 1 dos e, On Sat11/29/23 at 0730, For administration to inpatients, to be given by RN on inpatient nursing unit., CT Procedure iohexol (OMNIPAQUE) 350 MG/M L injection 1-171 mL (7 sources) Start: 09-25-2024 End: 09-25-2024 1-171 mL, Intravenous, ONCE, 1 dose, On Sat09/25/24 at 1345, Extravasation Risk, CT Procedure Start: 05-11-2024 End: 05-11-2024 1-171 mL, Intravenous, ONCE, 1 dose, On Sat05/11/24 at 1530, Extravasation Risk, CT Procedure Start: 04-09-2024 End: 04-09-2024 1-171 mL, Intravenous, ONCE, 1 dose, On Renetta 04/09/24 at 1615, Extravasation Risk, CT Procedure Start: 03-18-2024 End: 03-18-2024 1-171 mL, Intravenous, ONCE, 1 dose, On Sat03/18/24 at 1715, Extravasation Risk, CT Procedure Start: 03-16-2024 End: 03-16-2024 1-171 mL, Intravenous, ONCE, 1 dose, On Sat03/16/24 at 1345, Extravasation Risk, CT Procedure Start: 01-31-2024 End: 01-31-2024 1-171 mL, Intravenous, ONCE, 1 dose, On Sat01/31/24 at 1115, Extravasation Risk, CT Procedure Start: 11-29-2023 End: 11-29-2023 1-171 mL, Intravenous, ONCE, 1 dose, On Sat11/29/23 at 0815, Extravasation Risk, CT Procedure isavuconazonium sulfate 186 mg oral capsule (10 sources) Start: 04-20-2024 End: 04-22-2024 take 1 capsule by mouth every twenty-four hours 372 mg, Oral, EVERY 24 HOURS, First dose on Sat04/21/24 at 2200, Until Discontinued Start: 04-13-2024 End: 05-25-2024 take 2 capsules by mouth every twenty-four hours Isavuconazonium (Cresemba) 186 MG capsule Please take 2 capsules by mouth every 8 hours for 6 doses, then take 2 capsules every 24 hours for a total of 6 weeks. 90 capsule 04/14/2024 04/22/2024 Discontinued (Stop Taking at Discharge) Start: 04-13-2024 End: 04-13-2024 take 2 capsules by mouth every twenty-four hours Isavuconazonium 186 MG capsule Take 2 capsules by mouth every 24 hours. 45 capsule 04/13/2024 04/13/2024 Discontinued 1 ml ketorolac tromethamine 15 mg/ml cartridge (2 sources) Nonsteroidal Anti-inflammatory Drug, Cyclooxygenase Inhibitor Start: 04-09-2024 End: 04-09-2024 15 mg, Intravenous, ONCE, 1 dose, On Sat04/09/24 at 1645 Start: 03-06-2024 End: 03-06-2024 15 mg, Intravenous, EVERY 6 HOURS, 4 doses, First dose on Sat03/06/24 at 0000, Last dose on Sat03/06/24 at 1800 labetalol hydrochloride 5 mg/ml injectable solution (1 source) beta-Adrenergic Zenon Start: 01-22-2024 End: 01-22-2024 5 mg, Intravenous, EVERY 15 MINUTES NEEDED, 4 doses, Starting on Sat01/22/24 at 1137, Until Sat01/22/24 at 1650, SBP > 160 mmHg with HR >60 bpm, FIRST line HTN. , For SBP > 160 Hold if HR lidocaine 0.04 mg/mg medicated patch (4 sources) Antiarrhythmic, Amide Local Anesthetic Start: 03-17-2024 End: 03-20-2024 2 patch, Transdermal, Administer over 12 Hours, EVERY 24 HOURS, First dose on Sat03/17/24 at 1200, Until Discontinued, Apply to right upper thigh, 1 on each side of ROSA MARIA . Start: 11-29-2023 End: 11-29-2023 20 mL, Urethral, ONCE, 1 dos e, On Sat11/29/23 at 1000, Maximum 3 uro-jets/day Start: 08-16-2023 End: 08-16-2023 Lidocaine (XYLOCAINE) 10 mg/ mL injection 100 mg Start: 08-16-2023 End: 08-16-2023 Lidocaine (XYLOCAINE) 10 mg/ mL injection magnesium oxide 400 mg oral tablet (2 sources) Start: 04-10-2024 End: 04-11-2024 take 1 dose by mouth once 400 mg, Oral, ONCE, 1 dose, On Sat04/11/24 at 0615 100 ml magnesium sulfate 10 mg/ml injection (6 sources) Start: 04-22-2024 End: 04-22-2024 4 g, Intravenous, Administer over 4 Hours, ONCE, 1 dose, On Sat04/22/24 at 0815 Start: 04-20-2024 End: 04-20-2024 4 g, Intravenous, at 12.5 mL /hr, Administer over 4 Hours, ONCE, 1 dose, On Sat04/20/24 at 2230 Start: 04-13-2024 End: 04-13-2024 4 g, Intravenous, at 12.5 mL /hr, Administer over 4 Hours, ONCE, 1 dose, On Sat04/13/24 at 0745 Start: 03-19-2024 End: 03-19-2024 1 g, Intravenous, at 100 mL/ hr, Administer over 60 Minutes, ONCE, 1 dose, On Sat03/19/24 at 0800 Start: 03-18-2024 End: 03-18-2024 4 g, Intravenous, at 12.5 mL /hr, Administer over 4 Hours, ONCE, 1 dose, On Sat03/18/24 at 0600 Start: 03-05-2024 End: 03-05-2024 4 g, Intravenous, Administer over 4 Hours, ONCE, 1 dose, On Sat03/05/24 at 2000 1 ml morphine sulfate 2 mg/ml cartridge (4 sources) Opioid Agonist Start: 04-09-2024 End: 04-09-2024 take 2 mg intravenously every four hours as needed 2 mg, Intravenous, EVERY 4 HOURS NEEDED, Starting on Sat04/09/24 at 1607, Until Sat04/09/24 at 2020, Moderate Pain, Severe Pain Start: 04-09-2024 End: 04-09-2024 2 mg, Intravenous, ONCE, 1 d ose, On Sat04/09/24 at 1200 Start: 03-17-2024 End: 03-17-2024 2 mg, Intravenous, ONCE, 1 d ose, On Sat03/17/24 at 1200 Start: 03-17-2024 End: 03-18-2024 take 2 mg intravenously every four hours as needed 2 mg, Intravenous, EVERY 4 HOURS NEEDED, 2 doses, Starting on Sat03/17/24 at 1157, Until Sat03/18/24 at 1519, Severe Pain, Moderate Pain Ondansetron (4 sources) Serotonin-3 Receptor Antagonist Start: 04-22-2024 End: 04-22-2024 take 1 tablet by mouth every six hours as needed Ondansetron (ZOFRAN) tablet 4 mg Start: 04-20-2024 End: 04-22-2024 take 4 mg intravenously every six hours as needed 4 mg, Intravenous, EVERY 6 HOURS NEEDED, Starting on Sat04/20/24 at 2351, Until Sat04/22/24 at 0817, Nausea / Vomiting Start: 04-16-2024 take 1 tablet by adri th every eight hours as needed Ondansetron 4 MG tablet Take 1 tablet by mouth every 8 hours as needed for Nausea / Vomiting. 20 tablet 04/16/2024 Active Start: 01-22-2024 End: 01-22-2024 take 4 mg intravenously every four hours as needed 4 mg, Intravenous, EVERY 4 HOURS NEEDED, Starting on Sat01/22/24 at 1321, Until Sat01/22/24 at 1650, Nausea / Vomiting, 1st line, Post-op/Post-Proc Ondansetron 4mg/2ml (ZOFRAN) injection 4 mg (4 sources) Start: 04-12-2024 End: 04-14-2024 take 4 mg intravenously every six hours as needed Ondansetron 4mg/2ml (ZOFRAN) injection 4 mg Start: 04-09-2024 End: 04-11-2024 take 4 mg intravenously every six hours as needed Ondansetron 4mg/2ml (ZOFRAN) injection 4 mg Start: 03-16-2024 End: 03-20-2024 take 4 mg intravenously every six hours as needed Ondansetron 4mg/2ml (ZOFRAN) injection 4 mg Start: 03-05-2024 End: 03-06-2024 take 4 mg intravenously every six hours as needed Ondansetron 4mg/2ml (ZOFRAN) injection 4 mg oxyCODONE hydrochloride 5 mg oral tablet (19 sources) Opioid Agonist Start: 04-10-2024 End: 04-11-2024 take 1 tablet by mouth every four hours as needed 5 mg, Oral, EVERY 4 HOURS NEEDED, 4 doses, Starting on Sat04/10/24 at 2320, Until Sat04/11/24 at 1733, Severe Pain Start: 03-16-2024 End: 03-20-2024 take 1 tablet by mouth every four hours as needed oxyCODONE (ROXICODONE) tablet 5 mg Start: 03-16-2024 End: 03-16-2024 take 1 dose by mouth once 10 mg, Oral, ONCE, 1 dose, O n Sat03/16/24 at 1300 Start: 03-06-2024 End: 04-10-2024 take 1 tablet by mouth every six hours as needed for pain oxyCODONE 5 MG tablet Indications: Malignant neoplasm of penis Take 1 tablet by mouth every 6 hours as needed for Moderate Pain or Severe Pain for up to 7 days. 10 tablet 03/20/2024 04/10/2024 Discontinued (Stop Taking at Discharge) Start: 03-05-2024 End: 03-06-2024 take 1 tablet by mouth every six hours as needed oxyCODONE (ROXICODONE) tablet 5 mg Start: 01-22-2024 End: 01-29-2024 take 0.5 tablet by mouth every six hours as needed for pain oxyCODONE 5 MG tablet Indications: Penile mass Take 0.5 tablets by mouth every 6 hours as needed for Moderate Pain or Severe Pain for up to 7 days. 10 tablet 01/22/2024 Active Start: 01-22-2024 End: 01-22-2024 take 1 tablet by mouth every six hours as needed 5 mg, Oral, EVERY 6 HOURS NEEDED, Starting on Sat01/22/24 at 1321, Until Sat01/22/24 at 1650, Severe Pain, Post-op/Post-Proc Start: 01-22-2024 End: 01-22-2024 5 mg, Oral, EVERY 4 HOURS NEEDED, 2 doses, Starting on Sat01/22/24 at 1137, Until Sat01/22/24 at 1650, Mild Pain, Recovery piperacillin 4000 mg / tazobactam 500 mg injection (8 sources) Penicillin-class Antibacterial, beta Lactamase Inhibitor Start: 04-12-2024 End: 04-14-2024 4.5 g, Intravenous, Administer over 4 Hours, EVERY 8 HOURS NON-STANDARD, First dose on Sat04/13/24 at 0800, Until Discontinued, Infuse STAT doses over 30 minutes. Infuse other doses over 4 hours. Contains a penicillin., Indications: Empiric therapy Start: 04-09-2024 End: 04-09-2024 4.5 g, Intravenous, Administ er over 4 Hours, EVERY 8 HOURS NON-STANDARD, First dose on Sat04/09/24 at 2300, Until Discontinued, Infuse STAT doses over 30 minutes. Infuse other doses over 4 hours. Contains a penicillin., Indications: Empiric therapy Start: 04-09-2024 End: 04-11-2024 4.5 g, Intravenous, Administ er over 4 Hours, EVERY 8 HOURS NON-STANDARD, First dose on Sat04/09/24 at 2200, Until Discontinued, Infuse STAT doses over 30 minutes. Infuse other doses over 4 hours. Contains a penicillin., Indications: Empiric therapy Start: 03-16-2024 End: 03-17-2024 4.5 g, Intravenous, Administ er over 4 Hours, EVERY 8 HOURS NON-STANDARD, First dose on Sat03/17/24 at 0000, Until Discontinued, Infuse STAT doses over 30 minutes. Infuse other doses over 4 hours. Contains a penicillin., Indications: Empiric therapy polyethylene glycol 3350 [id number] mg powder for oral solution (10 sources) Osmotic Laxative Start: 03-06-2024 End: 04-19-2024 17 g, Oral, DAILY, First dose on Sat04/10/24 at 0900, Until Discontinued 100 ml potassium chloride 0.1 meq/ml injection (1 source) Start: 03-19-2024 End: 03-19-2024 10 mEq, Intravenous, Administer over 60 Minutes, ONCE, 1 dose, On Sat03/19/24 at 0800 20 ml sodium chloride 9 mg/ml injection (16 sources) Start: 09-25-2024 End: 09-25-2024 1-100 mL, Intravenous, ONCE NEEDED, 1 dose, Starting on Sat09/25/24 at 1341, Until Sat09/25/24 at 1342, Flush, CT Procedure Start: 05-11-2024 End: 05-11-2024 1-100 mL, Intravenous, ONCE NEEDED, 1 dose, Starting on Sat05/11/24 at 1521, Until Sat05/11/24 at 1522, Flush, CT Procedure Start: 04-21-2024 End: 04-21-2024 Intravenous, at 125 mL/hr, CONTINUOUS, Starting on Sat04/21/24 at 1000, Until Sat04/21/24 at 1814 Start: 04-20-2024 End: 04-20-2024 1,000 mL, Intravenous, ONCE, 1 dose, On Sat04/20/24 at 2230, Fluid Bolus Start: 04-12-2024 End: 04-14-2024 take 500 mL intravenously every twenty-four hours 500 mL, Intravenous, EVERY 24 HOURS, First dose on Sat04/13/24 at 0230, Until Discontinued, Give 500 mL bolus after amphotericin B dose. Amphotericin B is incompatible with NS; use PRN [id number] order for flushing line immediately following drug administration but prior to NS bolus. Start: 04-12-2024 End: 04-14-2024 Intravenous, at 20 mL/hr, NEEDED, Starting on Sat04/12/24 at 2221, Until Sat04/14/24 at 1632, Carrier Fluid - See Admin. Inst, 250mL 0.9NS to be used as carrier fluid for intermittent small volume or piggyback medication administration as needed. Infusion rate of the carrier fluid should be set at 20 mL/hr unless the rate as the intermittent medication is less than 20 mL/hr. For intermittent medications with a rate less than 20 mL/hr set the carrier fluid at that rate of the intermittent or piggy back medication. Start: 04-09-2024 End: 04-11-2024 Intravenous, at 20 mL/hr, NEEDED, Starting on Sat04/09/24 at 2037, Until Sat04/11/24 at 1733, Carrier Fluid - See Admin. Inst, 250mL 0.9NS to be used as carrier fluid for intermittent small volume or piggyback medication administration as needed. Infusion rate of the carrier fluid should be set at 20 mL/hr unless the rate as the intermittent medication is less than 20 mL/hr. For intermittent medications with a rate less than 20 mL/hr set the carrier fluid at that rate of the intermittent or piggy back medication. Start: 04-09-2024 End: 04-09-2024 1-100 mL, Intravenous, ONCE NEEDED, 1 dose, Starting on Sat04/09/24 at 1607, Until Sat04/09/24 at 1607, Flush, CT Procedure Start: 04-09-2024 End: 04-09-2024 500 mL, Intravenous, ONCE, 1 dose, On Sat04/09/24 at 1200 Start: 03-18-2024 End: 03-18-2024 1-100 mL, Intravenous, ONCE NEEDED, 1 dose, Starting on Sat03/18/24 at 1701, Until Sat03/18/24 at 1701, Flush, CT Procedure Start: 03-16-2024 End: 03-20-2024 Intravenous, at 20 mL/hr, NEEDED, Starting on Sat03/16/24 at 1810, Until Sat03/20/24 at 2001, Carrier Fluid - See Admin. Inst, 250mL 0.9NS to be used as carrier fluid for intermittent small volume or piggyback medication administration as needed. Infusion rate of the carrier fluid should be set at 20 mL/hr unless the rate as the intermittent medication is less than 20 mL/hr. For intermittent medications with a rate less than 20 mL/hr set the carrier fluid at that rate of the intermittent or piggy back medication. Start: 03-16-2024 End: 03-16-2024 1-100 mL, Intravenous, ONCE NEEDED, 1 dose, Starting on Sat03/16/24 at 1339, Until Sat03/16/24 at 1339, Flush, CT Procedure Start: 03-05-2024 End: 03-06-2024 Start: 01-31-2024 End: 01-31-2024 1-100 mL, Intravenous, ONCE NEEDED, 1 dose, Starting on Sat01/31/24 at 1110, Until Sat01/31/24 at 1111, Flush, CT Procedure Start: 11-29-2023 End: 11-29-2023 1-100 mL, Intravenous, ONCE NEEDED, 1 dose, Starting on Sat11/29/23 at 0812, Until Sat11/29/23 at 0812, Flush, CT Procedure sodium phosphate 30 mmol in Sodium chloride 0.9%, with overfill 285 mL (total volume) IVPB (1 source) Start: 03-06-2024 End: 03-06-2024 30 mmol, Intravenous, Administer over 4 Hours, ONCE, 1 dose, On Sat03/06/24 at 0800 sulfamethoxazole 800 mg / trimethoprim 160 mg oral tablet (12 sources) Dihydrofolate Reductase Inhibitor Antibacterial, Sulfonamide Antimicrobial Start: 04-08-2024 End: 04-22-2024 take 1 tablet by mouth twice daily Sulfamethoxazole- trimethoprim 800-160 MG per tablet Take 1 tablet by mouth 2 times daily for 14 days. 28 tablet 04/08/2024 04/14/2024 Discontinued (Stop Taking at Discharge) Start: 03-17-2024 End: 03-30-2024 take 1 tablet by mouth every twelve hours Sulfamethoxazole-trimethoprim 800-160 MG per tablet Take 1 tablet by mouth every 12 hours for 10 days. 20 tablet 03/20/2024 03/30/2024 Active Start: 02-25-2024 End: 03-20-2024 take 1 tablet by mouth twice daily Sulfamethoxazole-trimethoprim 800-160 MG per tablet Take 1 tablet by mouth 2 times daily for 14 days. 28 tablet 03/06/2024 03/20/2024 Discontinued (Stop Taking at Discharge) Start: 02-25-2024 End: 03-06-2024 take 1 tablet by mouth every twelve hours Bactrim DS 800 mg-160 mg oral tablet Dos e = 1 tab(s), Oral, q12h, X 10 day(s), # 20 tab(s), 0 Refill(s), Pharmacy: [facility]/pharmacy #[id number], 194.6, cm, 02/25/24 12:24:00 EDT, Height, 107, kg, 02/25/24 12:24:00 EDT, Dosing Weight Start Date: 02/25/24 Stop Date: 03/06/24 Status: Ordered Vancomycin HCl in NaCl (Vancocin) 1,500 mg 290 ml premade IVPB (2 sources) Start: 04-10-2024 End: 04-11-2024 1,500 mg (rounded from 1,438 .5 mg = 15 mg/kg 95.9 kg Adjusted weight), Intravenous, Administer over 2 Hours, EVERY 12 HOURS NON-STANDARD, First dose on Sat04/10/24 at 0500, Until Discontinued Start: 03-17-2024 End: 03-17-2024 1,500 mg (rounded from 1,620 mg = 15 mg/kg 108 kg Order- specific weight), Intravenous, Administer over 2 Hours, EVERY 12 HOURS NON-STANDARD, First dose on Sat03/17/24 at 0200, Until Discontinued Vancomycin HCl in NaCl (Vancocin) 2,000 mg 295 ml premade IVPB (2 sources) Start: 04-09-2024 End: 04-09-2024 2,000 mg (rounded from 1,918 mg = 20 mg/kg 95.9 kg Adjusted weight), Intravenous, Administer over 2 Hours, ONCE, 1 dose, On Renetta 04/09/24 at 1515 Start: 03-16-2024 End: 03-16-2024 2,000 mg, Intravenous, Admin ister over 2 Hours, ONCE, 1 dose, On 03/16/24 at 1300 Vancomycin HCL in NaCl 1,750 mg 292.5 ml premade IVPB (1 source) Start: 04-11-2024 End: 04-11-2024 take 1750 mg intravenously every twelve hours 1,750 mg, Intravenous, Administer over 2 Hours, EVERY 12 HOURS NON-STANDARD, First dose (after last modification) on 04/11/24 at 1900, Until Discontinued VERIFY LINKED PATCH PLACEMENT (1 source) Start: 01-22-2024 End: 01-22-2024 Other, EVERY 12 HOURS, First dose on Sat01/22/24 at 0915, Until Discontinued, Confirm continued adhesion of scopolamine 1.5 mg/72hr patch at documented site. 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 (20 sources) Malignant tumor of penis; Translations: [Malignant neoplasm of penis, unspecified] Onset: 4 08-02-2023 Chronic Cancer; other and unspecified primary (1 source) History of squamous cell carcinoma 02-15-2025 Episodic Cardiac dysrhythmias (20 sources) Atrial fibrillation; Translations: [Unspecified atrial fibrillation] Onset: 4 01-21-2014 Chronic Chronic ulcer of skin (2 sources) Non-pressure chronic ulcer of other part of left foot with fat layer exposed; Translations: [Ulcer of left foot with fat layer exposed] Onset: 4 01-03-2024 Chronic Coagulation and hemorrhagic disorders (20 sources) Hypercoagulability state; Translations: [Other primary thrombophilia] Onset: 4 01-07-2023 Chronic Diabetes mellitus with complications (20 sources) Type 2 diabetes mellitus; Translations: [Type 2 diabetes mellitus with other circulatory complications] Onset: 4 08-02-2023 Chronic Diabetes mellitus without complication (20 sources) Diabetes mellitus; Translations: [Type 2 diabetes mellitus without complication] 03-12-2019 Chronic Disorders of lipid metabolism (20 sources) Pure hyperglyceridemia; Translations: [Pure hyperglyceridemia] Onset: 4 03-13-2019 Chronic Essential hypertension (20 sources) Hypertensive disorder; Translations: [Essential hypertension] Onset: 4 03-13-2019 Chronic Genitourinary congenital anomalies (2 sources) Hypospadias; Translations: [Other hypospadias] Onset: 5 11-18-2024 Chronic Hypertension with complications and secondary hypertension (20 sources) Hypertensive urgency ; Translations: [Hypertensive urgency] Onset: 4 07-25-2020 Chronic Nutritional deficiencies (20 sources) Vitamin D deficiency; Translations: [Vitamin D deficiency, unspecified] Onset: 4 11-10-2019 Chronic Osteoarthritis (20 sources) Degenerative joint disease involving multiple joints; Translations: [Polyosteoarthritis, unspecified] Onset: 4 03-13-2019 Chronic Other aftercare (14 sources) Long-term current use of anticoagulant; Translations: [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] 01-07-2023 Episodic Other connective tissue disease (3 sources) Other symptoms and signs involving the musculoskeletal system; Translations: [Other musculoskeletal symptoms referable to limbs] Onset: 5 03-08-2025 Episodic Other connective tissue disease (2 sources) Disorder of fascia; Translations: [Other specified disorders of muscle] Onset: 5 03-08-2025 Episodic Other connective tissue disease (1 source) Other specified disorders of muscle; Translations: [Tightness of fascia of lower extremity] Onset: 5 Episodic Other diseases of veins and lymphatics (1 source) Lymphedema; Translations: [Lymphedema, not elsewhere classified] 09-25-2024 Chronic Other diseases of veins and lymphatics (2 sources) Lymphedema, not elsewhere classified; Translations: [Lymphedema, not elsewhere classified] Onset: 5 Chronic Other infections; including parasitic (1 source) Disorder due to infection; Translations: [Unspecified infectious disease] 04-10-2024 Episodic Other male genital disorders (20 sources) Impotence; Translations: [Male erectile dysfunction, unspecified] Onset: 4 01-07-2023 Chronic Other male genital disorders (2 sources) Ulcer of penis; Translations: [Ulcer of penis] Onset: 4 12-19-2023 Chronic Other male genital disorders (1 source) Mass of penis; Translations: [Other specified disorders of penis] 01-22-2024 Chronic Other male genital disorders (1 source) Other specified disorders of penis; Translations: [Other specified disorders of penis] Onset: 4 Chronic Other male genital disorders (1 source) Ulcer of penis; Translations: [Ulcer of penis] Onset: 4 Chronic Other male genital disorders (1 source) Other specified disorders of penis; Translations: [Other specified disorders of penis] Onset: 4 Chronic Other screening for suspected conditions (not mental disorders or infectious disease) (4 sources) Liver function tests abnormal 11-10-2019 Episodic Residual codes;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 <15 Note: (go live 2024) the eGFR calculation was updated to the 2020 CKD-EPI creatinine equation without a race factor to calculate the eGFR results. Globulin 3.4 G/dL Normal 1.5 - 3.8 G/dL AO ADM SS Glucose [Mass/Vol] 157 mg/dL High 70 - 105 mg/dL AO ADM SS Glucose [Mass/Vol] 151 mg/dL Invalid Interpretation Code AO Chemistry S Comment on above: Interpretive Data: E stimated average glucose (eAG) is a calculated value from Hemoglobin A1C and is advertising representative of the average blood glucose level in the last 2-3 month period. Normal range: less than 114 mg/dL HbA1c (Bld) [Mass fraction] 6.9 % High 4.3 - 6.4 % AO ADM SS Hematocrit (Bld) [Volume fraction] 37.2 % Low 40.0 - 52.0 % AO Workflow SS Hemoglobin (Bld) [Mass/Vol] 13.3 G/dL Normal 13.0 - 17.5 G/dL AO Workflow SS Lymphocytes (Bld) [#/Vol] 1.7 103/mcL Normal 0.9 - 4.3 10^3/mcL AO Workflow SS Lymphocytes/100 WBC (Bld) 27.9 % Normal 20.0 - 40.0 % AO Workflow SS MCH (RBC) [Entitic mass] 31.9 pg Normal 27.0 - 33.0 pg AO Workflow SS MCHC 35.9 G/dL Normal 32.0 - 36.0 G/dL AO Workflow SS MCV (RBC) [Entitic vol] 89.0 fL Normal 81.0 - 100.0 fL AO Workflow SS Monocytes (Bld) [#/Vol] 0.5 103/mcL Normal 0.1 - 1.4 10^3/mcL AO Workflow SS Monocytes/100 WBC (Bld) 8.2 % Normal 2.0 - 13.0 % AO Workflow SS Neutrophils (Bld) [#/Vol] 3.6 103/mcL Normal 2.3 - 8.1 10^3/mcL AO Workflow SS Neutrophils/100 WBC (Bld) 57.5 % Normal 50.0 - 75.0 % AO Workflow SS Platelet mean volume (Bld) [Entitic vol] 7.4 fL Normal 6.4 - 10.5 fL AO Workflow SS Platelets (Bld) [#/Vol] 181 103/mcL Normal 150 - 450 10^3/mcL AO Workflow SS Potassium [Moles/Vol] 4.2 mmol/L Normal 3.5 - 5.1 mmol/L AO ADM SS Prostate specific Ag [Mass/Vol] 0.80 ng/mL Normal 0.00 - 4.00 ng/mL AO ADM SS Protein [Mass/Vol] 7.6 G/dL Normal 6.4 - 8.2 G/dL AO ADM SS RBC (Bld) [#/Vol] 4.18 106/mcL Low 4.50 - 6.0 0 10^6/mcL AO Workflow SS Sodium [Moles/Vol] 140 mmol/L Normal 136 - 145 mmol/L AO ADM SS TSH Qn 2.44 m[IU]/L Normal 0.36 - 3.74 mcIU/mL AO ADM SS Urea nitrogen [Mass/Vol] 23 mg/dL High 7 - 18 mg/dL AO ADM SS Urea nitrogen/Creatinine [Mass ratio] 20 ratio Normal 7 - 27 ratio AO ADM SS WBC (Bld) [#/Vol] 6.2 103/mcL Normal 4.5 - 10.8 10^3/mcL AO Workflow SS LABORATORYOrdered By: Lakeisha Alford on 08-28-2024 Cholesterol [Mass/Vol] 131 mg/dL Normal 0 - 200 mg/dL AO ADM SS Comment on above: Interpretive Data: C holesterol Reference Interval: Less than 200 Desirable 200-239 Borderline high risk 240 and above High risk Cholesterol in HDL [Mass/Vol] 51 mg/dL Normal 40 - 60 mg/dL AO ADM SS Cholesterol in LDL [Mass/Vol] 18 mg/dL Normal 0 - 130 mg/dL AO ADM SS Triglyceride [Mass/Vol] 310 mg/dL High 0 - 150 mg/dL AO ADM SS Comment on above: Interpretive Data: T riglyceride Reference Interval: Less than 150 Normal 150-199 Borderline high risk 200-499 High risk 500 or higher Very high risk LIPIDon 08-28-2024 Cholesterol [Mass/Vol] 131 mg/dL Normal 0-[address] [facility] Comment on above: Result Comment: Chol esterol Reference Interval: Less than 200 Desirable 200-239 Borderline high risk 240 and above High risk Performed By: #### C BC, ADIFF, ANEU, PSA, CMP, TSHR, GFR, LIPID, A1C #### [address] [address] Cholesterol in HDL [Mass/Vol] 51 mg/dL Normal 40-[address] [facility] Comment on above: Performed By: #### C BC, ADIFF, ANEU, PSA, CMP, TSHR, GFR, LIPID, A1C #### [address] [address] Cholesterol in LDL [Mass/Vol] 18 mg/dL Normal 0-[address] [facility] Comment on above: Performed By: #### C BC, ADIFF, ANEU, PSA, CMP, TSHR, GFR, LIPID, A1C #### [address] [address] Triglyceride [Mass/Vol] 310 mg/dL High 0-[address] [facility] Comment on above: Result Comment: Trig lyceride Reference Interval: Less than 150 Normal 150-199 Borderline high risk 200-499 High risk 500 or higher Very high risk Performed By: #### C BC, ADIFF, ANEU, PSA, CMP, TSHR, GFR, LIPID, A1C #### [address] [address] PSAon 08-28-2024 Prostate Specific Antigen 0.80 ng/mL Normal 0.00-4.[address] [facility] Comment on above: Performed By: #### C BC, ADIFF, ANEU, PSA, CMP, TSHR, GFR, LIPID, A1C #### [address] [address] TSHRon 08-28-2024 TSH Qn 2.44 m[IU]/L Normal 0.36-3.[address] [facility] Comment on above: Performed By: #### C BC, ADIFF, ANEU, PSA, CMP, TSHR, GFR, LIPID, A1C #### [address] [address] POSACONAZOLE, TROUGH (PRE DR UG LEVEL)on 05-19-2024 Posaconazole, Trough 4300 ng/mL Normal >700 [facility] Comment on above: Result Comment: ---- ADDITIONAL INFORMATION This test was developed and its performance characteristicsdetermined by [facility] in a manner consistent with CLIArequirements. This test has not been cleared or approved bythe U.S. Food and Drug Administration.Test Performed by:[facility] - [address] Director: Mag Desouza Ph.D.; CLIA# [id number] Performed By: #### Y POSA ####[facility] ([facility])[address] [place] [address] .Auto Diffon 05-18-2024 Basophil, Absolute 0.0 10 3/mcL Normal 0.0-0.2 [facility] Comment on above: Performed By: #### C BC, ADIFF, ANEU, PSA, CMP, TSHR, GFR, LIPID, A1C #### [address] [address] Basophils/100 WBC (Bld) 0.7 % Normal 0.0-2.[address] [facility] Comment on above: Performed By: #### C BC, ADIFF, ANEU, PSA, CMP, TSHR, GFR, LIPID, A1C #### [address] [address] Eosinophil, Absolute 0.2 10 3/mcL Normal 0.0-0.[address] [facility] Comment on above: Performed By: #### C BC, ADIFF, ANEU, PSA, CMP, TSHR, GFR, LIPID, A1C #### [address] [address] Eosinophils/100 WBC (Bld) 3.1 % Normal 0.0-7.[address] [facility] Comment on above: Performed By: #### C BC, ADIFF, ANEU, PSA, CMP, TSHR, GFR, LIPID, A1C #### [address] [address] Lymphocyte, Absolute 1.3 10 3/mcL Normal 0.9-4.[address] [facility] Comment on above: Performed By: #### C BC, ADIFF, ANEU, PSA, CMP, TSHR, GFR, LIPID, A1C #### [address] [address] Lymphocytes/100 WBC (Bld) 24.9 % Normal 20.0-40.[address] [facility] Comment on above: Performed By: #### C BC, ADIFF, ANEU, PSA, CMP, TSHR, GFR, LIPID, A1C #### [address] [address] Monocyte, Absolute 0.5 10 3/mcL Normal 0.1-1.4 [facility] Comment on above: Performed By: #### C BC, ADIFF, ANEU, PSA, CMP, TSHR, GFR, LIPID, A1C #### [address] [address] Monocytes/100 WBC (Bld) 10.3 % Normal 2.0-13.[address] [facility] Comment on above: Performed By: #### C BC, ADIFF, ANEU, PSA, CMP, TSHR, GFR, LIPID, A1C #### [address] [address] Neutrophils/100 WBC (Bld) 61.0 % Normal 50.0-75.[address] [facility] Comment on above: Performed By: #### C BC, ADIFF, ANEU, PSA, CMP, TSHR, GFR, LIPID, A1C #### [address] [address] .GFRon 05-18-2024 GFR 66 ml/min/1.73sqm [facility] Comment on above: Result Comment: GFR Population mean for , Non- Americans Ages 20-29 = 116 mL/min/1.73 sq.m. Ages 30-39 = 107 mL/min/1.73 sq.m. Ages 40-49 = 99 mL/min/1.73 sq.m. Ages 50-59 = 93 mL/min/1.73 sq.m. Ages 60-69 = 85 mL/min/1.73 sq.m. Ages 70+ = 75 mL/min/1.73 sq.m. Chronic Kidney Disease: Less than 60 mL/min/1.73 square meters End Stage Renal Disease: Less than 15 mL/min/1.73 square meters Performed By: #### C BC, ADIFF, ANEU, PSA, CMP, TSHR, GFR, LIPID, A1C #### [address] [address] GFR Non- 55 ml/min/1.73sqm [facility] Comment on above: Result Comment: GFR Population mean for , Non- Americans Ages 20-29 = 116 mL/min/1.73 sq.m. Ages 30-39 = 107 mL/min/1.73 sq.m. Ages 40-49 = 99 mL/min/1.73 sq.m. Ages 50-59 = 93 mL/min/1.73 sq.m. Ages 60-69 = 85 mL/min/1.73 sq.m. Ages 70+ = 75 mL/min/1.73 sq.m. Chronic Kidney Disease: Less than 60 mL/min/1.73 square meters End Stage Renal Disease: Less than 15 mL/min/1.73 square meters Performed By: #### C BC, ADIFF, ANEU, PSA, CMP, TSHR, GFR, LIPID, A1C #### [address] [address] .NEUABSon 05-18-2024 Neutrophil, Absolute 3.2 10 3/mcL Normal 2.3-8.[address] [facility] Comment on above: Performed By: #### C BC, ADIFF, ANEU, PSA, CMP, TSHR, GFR, LIPID, A1C #### [address] [address] BMPon 05-18-2024 BUN/Creatinine Ratio 18 ratio Normal 7-[address] [facility] Comment on above: Performed By: #### C BC, ADIFF, ANEU, PSA, CMP, TSHR, GFR, LIPID, A1C #### [address] [address] Calcium [Mass/Vol] 8.6 mg/dL Normal 8.4-10.2 [facility] Comment on above: Performed By: #### C BC, ADIFF, ANEU, PSA, CMP, TSHR, GFR, LIPID, A1C #### [place] [id number] Chloride [Moles/Vol] 103 mmol/L Normal 98-[address] [facility] Comment on above: Performed By: #### C BC, ADIFF, ANEU, PSA, CMP, TSHR, GFR, LIPID, A1C #### [address] [address] CO2 [Moles/Vol] 25 mmol/L Normal 22-[address] [facility] Comment on above: Performed By: #### C BC, ADIFF, ANEU, PSA, CMP, TSHR, GFR, LIPID, A1C #### [address] [address] Creatinine [Mass/Vol] 1.34 mg/dL High 0.70-1.[address] [facility] Comment on above: Result Comment: Test ing performed on Siemens Dimension EXL analyzer using a modified kinetic Anna technique. Performed By: #### C BC, ADIFF, ANEU, PSA, CMP, TSHR, GFR, LIPID, A1C #### [address] [address] Electrolyte Balance 10.0 mEq/L Normal 4.0-15.0 [facility] Comment on above: Performed By: #### C BC, ADIFF, ANEU, PSA, CMP, TSHR, GFR, LIPID, A1C #### [address] [address] Glucose [Mass/Vol] 113 mg/dL High 70-105 [facility] Comment on above: Performed By: #### C BC, ADIFF, ANEU, PSA, CMP, TSHR, GFR, LIPID, A1C #### [address] [address] Potassium [Moles/Vol] 3.6 mmol/L Normal 3.5-5.[address] [facility] Comment on above: Performed By: #### C BC, ADIFF, ANEU, PSA, CMP, TSHR, GFR, LIPID, A1C #### [address] [address] Sodium [Moles/Vol] 138 mmol/L Normal 136-145 [facility] Comment on above: Performed By: #### C BC, ADIFF, ANEU, PSA, CMP, TSHR, GFR, LIPID, A1C #### [address] [address] Urea nitrogen [Mass/Vol] 24 mg/dL High 7-[address] [facility] Comment on above: Performed By: #### C BC, ADIFF, ANEU, PSA, CMP, TSHR, GFR, LIPID, A1C #### [address] [address] CBCon 05-18-2024 Erythrocyte distribution width (RBC) [Ratio] 14.7 % Normal 11.5-15.[address] [facility] Comment on above: Performed By: #### B MP, HFP, GFR, CBC, ADIFF, ANEU #### [address] [address] Hematocrit (Bld) [Volume fraction] 28.7 % Low 40.0-52.[address] [facility] Comment on above: Performed By: #### B MP, HFP, GFR, CBC, ADIFF, ANEU #### [address] [address] Hgb 10.2 G/dL Low 13.0-17.[address] [facility] Comment on above: Performed By: #### B MP, HFP, GFR, CBC, ADIFF, ANEU #### [address] [address] MCH (RBC) [Entitic mass] 30.2 pg Normal 27.0-33.[address] [facility] Comment on above: Performed By: #### B MP, HFP, GFR, CBC, ADIFF, ANEU #### [address] [address] MCHC 35.7 G/dL Normal 32.0-36.[address] [facility] Comment on above: Performed By: #### B MP, HFP, GFR, CBC, ADIFF, ANEU #### [address] [address] MCV (RBC) [Entitic vol] 84.6 fL Normal 81.0-100.[address] [facility] Comment on above: Performed By: #### B MP, HFP, GFR, CBC, ADIFF, ANEU #### [address] [address] Platelet 167 10 3/mcL Normal 150-[address] [facility] Comment on above: Performed By: #### B MP, HFP, GFR, CBC, ADIFF, ANEU #### [address] [address] Platelet mean volume (Bld) [Entitic vol] 6.7 fL Normal 6.4-10.[address] [facility] Comment on above: Performed By: #### B MP, HFP, GFR, CBC, ADIFF, ANEU #### [address] [address] RBC 3.39 10 6/mcL Low 4.50-6.[address] [facility] Comment on above: Performed By: #### B MP, HFP, GFR, CBC, ADIFF, ANEU #### [address] [address] WBC 5.2 10 3/mcL Normal 4.5-10.[address] [facility] Comment on above: Performed By: #### B MP, HFP, GFR, CBC, ADIFF, ANEU #### [address] [address] HFPon 05-18-2024 Bili Indirect 0.4 mg/dL Normal [facility] Comment on above: Performed By: #### C BC, ADIFF, ANEU, PSA, CMP, TSHR, GFR, LIPID, A1C #### [address] [address] Albumin Level 3.5 G/dL Normal 3.5-5.[address] [facility] Comment on above: Performed By: #### C BC, ADIFF, ANEU, PSA, CMP, TSHR, GFR, LIPID, A1C #### [address] [address] Albumin/Globulin [Mass ratio] 1.3 {ratio} Normal 1.1-2.[address] [facility] Comment on above: Performed By: #### C BC, ADIFF, ANEU, PSA, CMP, TSHR, GFR, LIPID, A1C #### [address] [address] ALP [Catalytic activity/Vol] 64 U/L Normal 40-[address] [facility] Comment on above: Performed By: #### C BC, ADIFF, ANEU, PSA, CMP, TSHR, GFR, LIPID, A1C #### [address] [address] ALT [Catalytic activity/Vol] 53 U/L Normal 16-[address] [facility] Comment on above: Performed By: #### C BC, ADIFF, ANEU, PSA, CMP, TSHR, GFR, LIPID, A1C #### [address] [address] AST [Catalytic activity/Vol] 31 U/L Normal 10-[address] [facility] Comment on above: Performed By: #### C BC, ADIFF, ANEU, PSA, CMP, TSHR, GFR, LIPID, A1C #### [address] [address] Bili Direct 0.1 mg/dL Normal 0.0-0.[address] [facility] Comment on above: Result Comment: Use of this assay is not recommended for patients undergoing treatment with eltrombopag due to the potential for falsely elevated results. Performed By: #### C BC, ADIFF, ANEU, PSA, CMP, TSHR, GFR, LIPID, A1C #### [place] [address] Bili Total 0.5 mg/dL Normal 0.2-1.[address] [facility] Comment on above: Result Comment: Use of this assay is not recommended for patients undergoing treatment with eltrombopag due to the potential for falsely elevated results. Performed By: #### C BC, ADIFF, ANEU, PSA, CMP, TSHR, GFR, LIPID, A1C #### [place] [address] Globulin 2.6 G/dL Normal [facility] Comment on above: Performed By: #### C BC, ADIFF, ANEU, PSA, CMP, TSHR, GFR, LIPID, A1C #### [place] [address] Total Protein 6.1 G/dL Low 6.4-8.[address] [facility] Comment on above: Performed By: #### C BC, ADIFF, ANEU, PSA, CMP, TSHR, GFR, LIPID, A1C #### [place] [address] CT ABDOMEN/PELVIS WITH CONTR Louise 05-12-2024 CT ABDOMEN/PELVIS WITH CONTRAST Normal [facility] .Auto Diffon 05-11-2024 Basophil, Absolute 0.0 10 3/mcL Normal 0.0-0.2 [facility] Comment on above: Performed By: #### C BC, ADIFF, ANEU, PSA, CMP, TSHR, GFR, LIPID, A1C #### [place] [id number] Basophils/100 WBC (Bld) 0.7 % Normal 0.0-2.[address] [facility] Comment on above: Performed By: #### C BC, ADIFF, ANEU, PSA, CMP, TSHR, GFR, LIPID, A1C #### [address] [address] Eosinophil, Absolute 0.2 10 3/mcL Normal 0.0-0.[address] [facility] Comment on above: Performed By: #### C BC, ADIFF, ANEU, PSA, CMP, TSHR, GFR, LIPID, A1C #### [address] [address] Eosinophils/100 WBC (Bld) 3.7 % Normal 0.0-7.[address] [facility] Comment on above: Performed By: #### C BC, ADIFF, ANEU, PSA, CMP, TSHR, GFR, LIPID, A1C #### [address] [address] Lymphocyte, Absolute 1.0 10 3/mcL Normal 0.9-4.[address] [facility] Comment on above: Performed By: #### C BC, ADIFF, ANEU, PSA, CMP, TSHR, GFR, LIPID, A1C #### [address] [address] Lymphocytes/100 WBC (Bld) 20.2 % Normal 20.0-40.[address] [facility] Comment on above: Performed By: #### C BC, ADIFF, ANEU, PSA, CMP, TSHR, GFR, LIPID, A1C #### [address] [address] Monocyte, Absolute 0.4 10 3/mcL Normal 0.1-1.4 [facility] Comment on above: Performed By: #### C BC, ADIFF, ANEU, PSA, CMP, TSHR, GFR, LIPID, A1C #### [address] [address] Monocytes/100 WBC (Bld) 8.8 % Normal 2.0-13.[address] [facility] Comment on above: Performed By: #### C BC, ADIFF, ANEU, PSA, CMP, TSHR, GFR, LIPID, A1C #### [address] [address] Neutrophils/100 WBC (Bld) 66.6 % Normal 50.0-75.[address] [facility] Comment on above: Performed By: #### C BC, ADIFF, ANEU, PSA, CMP, TSHR, GFR, LIPID, A1C #### [place] [address] [place], [place] [address] .GFRon 05-11-2024 GFR Non- 51 ml/min/1.73sqm Normal [facility] Comment on above: Result Comment: GFR Population mean for , Non- Americans Ages 20-29 = 116 mL/min/1.73 sq.m. Ages 30-39 = 107 mL/min/1.73 sq.m. Ages 40-49 = 99 mL/min/1.73 sq.m. Ages 50-59 = 93 mL/min/1.73 sq.m. Ages 60-69 = 85 mL/min/1.73 sq.m. Ages 70+ = 75 mL/min/1.73 sq.m. Chronic Kidney Disease: Less than 60 mL/min/1.73 square meters End Stage Renal Disease: Less than 15 mL/min/1.73 square meters Performed By: #### C BC, ADIFF, ANEU, PSA, CMP, TSHR, GFR, LIPID, A1C #### [place] [address] [place], [place] [address] GFR 62 ml/min/1.73sqm Normal [facility] Comment on above: Result Comment: GFR Population mean for , Non- Americans Ages 20-29 = 116 mL/min/1.73 sq.m. Ages 30-39 = 107 mL/min/1.73 sq.m. Ages 40-49 = 99 mL/min/1.73 sq.m. Ages 50-59 = 93 mL/min/1.73 sq.m. Ages 60-69 = 85 mL/min/1.73 sq.m. Ages 70+ = 75 mL/min/1.73 sq.m. Chronic Kidney Disease: Less than 60 mL/min/1.73 square meters End Stage Renal Disease: Less than 15 mL/min/1.73 square meters Performed By: #### C BC, ADIFF, ANEU, PSA, CMP, TSHR, GFR, LIPID, A1C #### [address] [address] .NEUABSon 05-11-2024 Neutrophil, Absolute 3.3 10 3/mcL Normal 2.3-8.[address] [facility] Comment on above: Performed By: #### C BC, ADIFF, ANEU, PSA, CMP, TSHR, GFR, LIPID, A1C #### [address] [address] BMPon 05-11-2024 BUN/Creatinine Ratio 19 ratio Normal 7-[address] [facility] Comment on above: Performed By: #### C BC, ADIFF, ANEU, PSA, CMP, TSHR, GFR, LIPID, A1C #### [address] [address] Calcium [Mass/Vol] 8.5 mg/dL Normal 8.4-10.2 [facility] Comment on above: Performed By: #### C BC, ADIFF, ANEU, PSA, CMP, TSHR, GFR, LIPID, A1C #### [address] [address] Chloride [Moles/Vol] 102 mmol/L Normal 98-[address] [facility] Comment on above: Performed By: #### C BC, ADIFF, ANEU, PSA, CMP, TSHR, GFR, LIPID, A1C #### [address] [address] CO2 [Moles/Vol] 26 mmol/L Normal 22-[address] [facility] Comment on above: Performed By: #### C BC, ADIFF, ANEU, PSA, CMP, TSHR, GFR, LIPID, A1C #### [place] [id number] Creatinine [Mass/Vol] 1.42 mg/dL High 0.70-1.[address] [facility] Comment on above: Result Comment: Test ing performed on Siemens Dimension EXL analyzer using a modified kinetic Anna technique. Performed By: #### C BC, ADIFF, ANEU, PSA, CMP, TSHR, GFR, LIPID, A1C #### [address] [address] Electrolyte Balance 10.0 mEq/L Normal 4.0-15.0 [facility] Comment on above: Performed By: #### C BC, ADIFF, ANEU, PSA, CMP, TSHR, GFR, LIPID, A1C #### [address] [address] Glucose [Mass/Vol] 215 mg/dL High 70-105 [facility] Comment on above: Performed By: #### C BC, ADIFF, ANEU, PSA, CMP, TSHR, GFR, LIPID, A1C #### [address] [address] Potassium [Moles/Vol] 4.2 mmol/L Normal 3.5-5.[address] [facility] Comment on above: Performed By: #### C BC, ADIFF, ANEU, PSA, CMP, TSHR, GFR, LIPID, A1C #### [address] [address] Sodium [Moles/Vol] 138 mmol/L Normal 136-145 [facility] Comment on above: Performed By: #### C BC, ADIFF, ANEU, PSA, CMP, TSHR, GFR, LIPID, A1C #### [address] [address] Urea nitrogen [Mass/Vol] 27 mg/dL High 7-[address] [facility] Comment on above: Performed By: #### C BC, ADIFF, ANEU, PSA, CMP, TSHR, GFR, LIPID, A1C #### [address] [address] CBCon 05-11-2024 Erythrocyte distribution width (RBC) [Ratio] 14.5 % Normal 11.5-15.[address] [facility] Comment on above: Performed By: #### C BC, ADIFF, ANEU, PSA, CMP, TSHR, GFR, LIPID, A1C #### [address] [address] Hematocrit (Bld) [Volume fraction] 29.4 % Low 40.0-52.[address] [facility] Comment on above: Performed By: #### C BC, ADIFF, ANEU, PSA, CMP, TSHR, GFR, LIPID, A1C #### [place] [id number] Hgb 10.5 G/dL Low 13.0-17.[address] [facility] Comment on above: Performed By: #### C BC, ADIFF, ANEU, PSA, CMP, TSHR, GFR, LIPID, A1C #### [place] [address] MCH (RBC) [Entitic mass] 30.7 pg Normal 27.0-33.[address] [facility] Comment on above: Performed By: #### C BC, ADIFF, ANEU, PSA, CMP, TSHR, GFR, LIPID, A1C #### [place] [address] MCHC 35.7 G/dL Normal 32.0-36.[address] [facility] Comment on above: Performed By: #### C BC, ADIFF, ANEU, PSA, CMP, TSHR, GFR, LIPID, A1C #### [place] [address] MCV (RBC) [Entitic vol] 85.9 fL Normal 81.0-100.[address] [facility] Comment on above: Performed By: #### C BC, ADIFF, ANEU, PSA, CMP, TSHR, GFR, LIPID, A1C #### [place] [address] Platelet 154 10 3/mcL Normal 150-[address] [facility] Comment on above: Performed By: #### C BC, ADIFF, ANEU, PSA, CMP, TSHR, GFR, LIPID, A1C #### [place] [id number] Platelet mean volume (Bld) [Entitic vol] 7.0 fL Normal 6.4-10.[address] [facility] Comment on above: Performed By: #### C BC, ADIFF, ANEU, PSA, CMP, TSHR, GFR, LIPID, A1C #### [address] [address] RBC 3.43 10 6/mcL Low 4.50-6.[address] [facility] Comment on above: Performed By: #### C BC, ADIFF, ANEU, PSA, CMP, TSHR, GFR, LIPID, A1C #### [address] [address] WBC 5.0 10 3/mcL Normal 4.5-10.[address] [facility] Comment on above: Performed By: #### C BC, ADIFF, ANEU, PSA, CMP, TSHR, GFR, LIPID, A1C #### [address] [address] HFPon 05-11-2024 Bili Indirect 0.2 mg/dL Normal [facility] Comment on above: Performed By: #### C BC, ADIFF, ANEU, PSA, CMP, TSHR, GFR, LIPID, A1C #### [address] [address] Albumin Level 3.4 G/dL Low 3.5-5.[address] [facility] Comment on above: Performed By: #### C BC, ADIFF, ANEU, PSA, CMP, TSHR, GFR, LIPID, A1C #### [address] [address] Albumin/Globulin [Mass ratio] 1.3 {ratio} Normal 1.1-2.[address] [facility] Comment on above: Performed By: #### C BC, ADIFF, ANEU, PSA, CMP, TSHR, GFR, LIPID, A1C #### [address] [address] ALP [Catalytic activity/Vol] 63 U/L Normal 40-[address] [facility] Comment on above: Performed By: #### C BC, ADIFF, ANEU, PSA, CMP, TSHR, GFR, LIPID, A1C #### [address] [address] ALT [Catalytic activity/Vol] 55 U/L Normal 16-[address] [facility] Comment on above: Performed By: #### C BC, ADIFF, ANEU, PSA, CMP, TSHR, GFR, LIPID, A1C #### [address] [address] AST [Catalytic activity/Vol] 32 U/L Normal 10-[address] [facility] Comment on above: Performed By: #### C BC, ADIFF, ANEU, PSA, CMP, TSHR, GFR, LIPID, A1C #### [place] [address] Bili Direct 0.1 mg/dL Normal 0.0-0.[address] [facility] Comment on above: Result Comment: Use of this assay is not recommended for patients undergoing treatment with eltrombopag due to the potential for falsely elevated results. Performed By: #### C BC, ADIFF, ANEU, PSA, CMP, TSHR, GFR, LIPID, A1C #### [place] [address] Bili Total 0.4 mg/dL Normal 0.2-1.[address] [facility] Comment on above: Result Comment: Use of this assay is not recommended for patients undergoing treatment with eltrombopag due to the potential for falsely elevated results. Performed By: #### C BC, ADIFF, ANEU, PSA, CMP, TSHR, GFR, LIPID, A1C #### [address] [address] Globulin 2.7 G/dL Normal [facility] Comment on above: Performed By: #### C BC, ADIFF, ANEU, PSA, CMP, TSHR, GFR, LIPID, A1C #### [address] [address] Total Protein 6.1 G/dL Low 6.4-8.[address] [facility] Comment on above: Performed By: #### C BC, ADIFF, ANEU, PSA, CMP, TSHR, GFR, LIPID, A1C #### [address] [address] .Auto Diffon 05-04-2024 Basophil, Absolute 0.0 10 3/mcL Normal 0.0-0.2 [facility] Comment on above: Performed By: #### C BC, ADIFF, ANEU, PSA, CMP, TSHR, GFR, LIPID, A1C #### [address] [address] Basophils/100 WBC (Bld) 0.8 % Normal 0.0-2.[address] [facility] Comment on above: Performed By: #### C BC, ADIFF, ANEU, PSA, CMP, TSHR, GFR, LIPID, A1C #### [address] [address] Eosinophil, Absolute 0.2 10 3/mcL Normal 0.0-0.[address] [facility] Comment on above: Performed By: #### C BC, ADIFF, ANEU, PSA, CMP, TSHR, GFR, LIPID, A1C #### [address] [address] Eosinophils/100 WBC (Bld) 3.8 % Normal 0.0-7.[address] [facility] Comment on above: Performed By: #### C BC, ADIFF, ANEU, PSA, CMP, TSHR, GFR, LIPID, A1C #### [address] [address] Lymphocyte, Absolute 1.2 10 3/mcL Normal 0.9-4.[address] [facility] Comment on above: Performed By: #### C BC, ADIFF, ANEU, PSA, CMP, TSHR, GFR, LIPID, A1C #### [address] [address] Lymphocytes/100 WBC (Bld) 23.9 % Normal 20.0-40.[address] [facility] Comment on above: Performed By: #### C BC, ADIFF, ANEU, PSA, CMP, TSHR, GFR, LIPID, A1C #### [address] [address] Monocyte, Absolute 0.5 10 3/mcL Normal 0.1-1.4 [facility] Comment on above: Performed By: #### C BC, ADIFF, ANEU, PSA, CMP, TSHR, GFR, LIPID, A1C #### [address] [address] Monocytes/100 WBC (Bld) 11.1 % Normal 2.0-13.[address] [facility] Comment on above: Performed By: #### C BC, ADIFF, ANEU, PSA, CMP, TSHR, GFR, LIPID, A1C #### [address] [address] Neutrophils/100 WBC (Bld) 60.4 % Normal 50.0-75.[address] [facility] Comment on above: Performed By: #### C BC, ADIFF, ANEU, PSA, CMP, TSHR, GFR, LIPID, A1C #### [address] [address] .GFRon 05-04-2024 GFR Non- 45 ml/min/1.73sqm Normal [facility] Comment on above: Result Comment: GFR Population mean for , Non- Americans Ages 20-29 = 116 mL/min/1.73 sq.m. Ages 30-39 = 107 mL/min/1.73 sq.m. Ages 40-49 = 99 mL/min/1.73 sq.m. Ages 50-59 = 93 mL/min/1.73 sq.m. Ages 60-69 = 85 mL/min/1.73 sq.m. Ages 70+ = 75 mL/min/1.73 sq.m. Chronic Kidney Disease: Less than 60 mL/min/1.73 square meters End Stage Renal Disease: Less than 15 mL/min/1.73 square meters Performed By: #### C BC, ADIFF, ANEU, PSA, CMP, TSHR, GFR, LIPID, A1C #### [address] [address] GFR 55 ml/min/1.73sqm Normal [facility] Comment on above: Result Comment: GFR Population mean for , Non- Americans Ages 20-29 = 116 mL/min/1.73 sq.m. Ages 30-39 = 107 mL/min/1.73 sq.m. Ages 40-49 = 99 mL/min/1.73 sq.m. Ages 50-59 = 93 mL/min/1.73 sq.m. Ages 60-69 = 85 mL/min/1.73 sq.m. Ages 70+ = 75 mL/min/1.73 sq.m. Chronic Kidney Disease: Less than 60 mL/min/1.73 square meters End Stage Renal Disease: Less than 15 mL/min/1.73 square meters Performed By: #### C BC, ADIFF, ANEU, PSA, CMP, TSHR, GFR, LIPID, A1C #### [address] [address] .NEUABSon 05-04-2024 Neutrophil, Absolute 2.9 10 3/mcL Normal 2.3-8.[address] [facility] Comment on above: Performed By: #### C BC, ADIFF, ANEU, PSA, CMP, TSHR, GFR, LIPID, A1C #### [address] [address] BMPon 05-04-2024 BUN/Creatinine Ratio 18 ratio Normal 7-[address] [facility] Comment on above: Performed By: #### C BC, ADIFF, ANEU, PSA, CMP, TSHR, GFR, LIPID, A1C #### [address] [address] Calcium [Mass/Vol] 8.2 mg/dL Low 8.4-10.2 [facility] Comment on above: Performed By: #### C BC, ADIFF, ANEU, PSA, CMP, TSHR, GFR, LIPID, A1C #### [address] [address] Chloride [Moles/Vol] 103 mmol/L Normal 98-[address] [facility] Comment on above: Performed By: #### C BC, ADIFF, ANEU, PSA, CMP, TSHR, GFR, LIPID, A1C #### [address] [address] CO2 [Moles/Vol] 24 mmol/L Normal 22-[address] [facility] Comment on above: Performed By: #### C BC, ADIFF, ANEU, PSA, CMP, TSHR, GFR, LIPID, A1C #### [address] [place] [address] Creatinine [Mass/Vol] 1.58 mg/dL High 0.70-1.[address] [facility] Comment on above: Result Comment: Test ing performed on Siemens Dimension EXL analyzer using a modified kinetic Anna technique. Performed By: #### C BC, ADIFF, ANEU, PSA, CMP, TSHR, GFR, LIPID, A1C #### [address] [address] Electrolyte Balance 9.0 mEq/L Normal 4.0-15.0 [facility] Comment on above: Performed By: #### C BC, ADIFF, ANEU, PSA, CMP, TSHR, GFR, LIPID, A1C #### [address] [address] Glucose [Mass/Vol] 118 mg/dL High 70-105 [facility] Comment on above: Performed By: #### C BC, ADIFF, ANEU, PSA, CMP, TSHR, GFR, LIPID, A1C #### [address] [address] Potassium [Moles/Vol] 4.1 mmol/L Normal 3.5-5.[address] [facility] Comment on above: Performed By: #### C BC, ADIFF, ANEU, PSA, CMP, TSHR, GFR, LIPID, A1C #### [address] [address] Sodium [Moles/Vol] 136 mmol/L Normal 136-145 [facility] Comment on above: Performed By: #### C BC, ADIFF, ANEU, PSA, CMP, TSHR, GFR, LIPID, A1C #### [address] [address] Urea nitrogen [Mass/Vol] 28 mg/dL High 7-[address] [facility] Comment on above: Performed By: #### C BC, ADIFF, ANEU, PSA, CMP, TSHR, GFR, LIPID, A1C #### [address] [address] CBCon 05-04-2024 Erythrocyte distribution width (RBC) [Ratio] 14.5 % Normal 11.5-15.[address] [facility] Comment on above: Performed By: #### C BC, ADIFF, ANEU, PSA, CMP, TSHR, GFR, LIPID, A1C #### [address] [address] Hematocrit (Bld) [Volume fraction] 30.2 % Low 40.0-52.[address] [facility] Comment on above: Performed By: #### C BC, ADIFF, ANEU, PSA, CMP, TSHR, GFR, LIPID, A1C #### [place] [address] Hgb 10.6 G/dL Low 13.0-17.[address] [facility] Comment on above: Performed By: #### C BC, ADIFF, ANEU, PSA, CMP, TSHR, GFR, LIPID, A1C #### [place] [address] MCH (RBC) [Entitic mass] 30.0 pg Normal 27.0-33.[address] [facility] Comment on above: Performed By: #### C BC, ADIFF, ANEU, PSA, CMP, TSHR, GFR, LIPID, A1C #### [place] [address] MCHC 35.1 G/dL Normal 32.0-36.[address] [facility] Comment on above: Performed By: #### C BC, ADIFF, ANEU, PSA, CMP, TSHR, GFR, LIPID, A1C #### [place] [id number] MCV (RBC) [Entitic vol] 85.5 fL Normal 81.0-100.[address] [facility] Comment on above: Performed By: #### C BC, ADIFF, ANEU, PSA, CMP, TSHR, GFR, LIPID, A1C #### [place] [id number] Platelet 189 10 3/mcL Normal 150-[address] [facility] Comment on above: Performed By: #### C BC, ADIFF, ANEU, PSA, CMP, TSHR, GFR, LIPID, A1C #### [address] [address] Platelet mean volume (Bld) [Entitic vol] 7.1 fL Normal 6.4-10.[address] [facility] Comment on above: Performed By: #### C BC, ADIFF, ANEU, PSA, CMP, TSHR, GFR, LIPID, A1C #### [place] [address] [place], [place] [address] RBC 3.52 10 6/mcL Low 4.50-6.[address] [facility] Comment on above: Performed By: #### C BC, ADIFF, ANEU, PSA, CMP, TSHR, GFR, LIPID, A1C #### [address] [address] WBC 4.9 10 3/mcL Normal 4.5-10.[address] [facility] Comment on above: Performed By: #### C BC, ADIFF, ANEU, PSA, CMP, TSHR, GFR, LIPID, A1C #### [address] [address] HFPon 05-04-2024 Bili Indirect 0.2 mg/dL Normal [facility] Comment on above: Performed By: #### C BC, ADIFF, ANEU, PSA, CMP, TSHR, GFR, LIPID, A1C #### [address] [address] Albumin Level 3.3 G/dL Low 3.5-5.[address] [facility] Comment on above: Performed By: #### C BC, ADIFF, ANEU, PSA, CMP, TSHR, GFR, LIPID, A1C #### [address] [address] Albumin/Globulin [Mass ratio] 1.2 {ratio} Normal 1.1-2.[address] [facility] Comment on above: Performed By: #### C BC, ADIFF, ANEU, PSA, CMP, TSHR, GFR, LIPID, A1C #### [address] [address] ALP [Catalytic activity/Vol] 62 U/L Normal 40-[address] [facility] Comment on above: Performed By: #### C BC, ADIFF, ANEU, PSA, CMP, TSHR, GFR, LIPID, A1C #### [address] [address] ALT [Catalytic activity/Vol] 57 U/L Normal 16-[address] [facility] Comment on above: Performed By: #### C BC, ADIFF, ANEU, PSA, CMP, TSHR, GFR, LIPID, A1C #### [address] [address] AST [Catalytic activity/Vol] 41 U/L High 10-[address] [facility] Comment on above: Performed By: #### C BC, ADIFF, ANEU, PSA, CMP, TSHR, GFR, LIPID, A1C #### [address] [address] Bili Direct 0.1 mg/dL Normal 0.0-0.[address] [facility] Comment on above: Result Comment: Use of this assay is not recommended for patients undergoing treatment with eltrombopag due to the potential for falsely elevated results. Performed By: #### C BC, ADIFF, ANEU, PSA, CMP, TSHR, GFR, LIPID, A1C #### [address] [address] Bili Total 0.3 mg/dL Normal 0.2-1.[address] [facility] Comment on above: Result Comment: Use of this assay is not recommended for patients undergoing treatment with eltrombopag due to the potential for falsely elevated results. Performed By: #### C BC, ADIFF, ANEU, PSA, CMP, TSHR, GFR, LIPID, A1C #### [address] [address] Globulin 2.7 G/dL Normal [facility] Comment on above: Performed By: #### C BC, ADIFF, ANEU, PSA, CMP, TSHR, GFR, LIPID, A1C #### [address] [address] Total Protein 6.0 G/dL Low 6.4-8.[address] [facility] Comment on above: Performed By: #### C BC, ADIFF, ANEU, PSA, CMP, TSHR, GFR, LIPID, A1C #### [address] [address] .Auto Diffon 04-27-2024 Basophil, Absolute 0.0 10 3/mcL Normal 0.0-0.2 [facility] Comment on above: Performed By: #### C BC, ADIFF, ANEU, PSA, CMP, TSHR, GFR, LIPID, A1C #### [address] [address] Basophils/100 WBC (Bld) 0.7 % Normal 0.0-2.[address] [facility] Comment on above: Performed By: #### C BC, ADIFF, ANEU, PSA, CMP, TSHR, GFR, LIPID, A1C #### [address] [address] Eosinophil, Absolute 0.1 10 3/mcL Normal 0.0-0.[address] [facility] Comment on above: Performed By: #### C BC, ADIFF, ANEU, PSA, CMP, TSHR, GFR, LIPID, A1C #### [address] [address] Eosinophils/100 WBC (Bld) 2.4 % Normal 0.0-7.[address] [facility] Comment on above: Performed By: #### C BC, ADIFF, ANEU, PSA, CMP, TSHR, GFR, LIPID, A1C #### [address] [address] Lymphocyte, Absolute 1.1 10 3/mcL Normal 0.9-4.[address] [facility] Comment on above: Performed By: #### C BC, ADIFF, ANEU, PSA, CMP, TSHR, GFR, LIPID, A1C #### [address] [address] Lymphocytes/100 WBC (Bld) 19.7 % Low 20.0-40.[address] [facility] Comment on above: Performed By: #### C BC, ADIFF, ANEU, PSA, CMP, TSHR, GFR, LIPID, A1C #### [address] [address] Monocyte, Absolute 0.5 10 3/mcL Normal 0.1-1.4 [facility] Comment on above: Performed By: #### C BC, ADIFF, ANEU, PSA, CMP, TSHR, GFR, LIPID, A1C #### [address] [address] Monocytes/100 WBC (Bld) 9.0 % Normal 2.0-13.[address] [facility] Comment on above: Performed By: #### C BC, ADIFF, ANEU, PSA, CMP, TSHR, GFR, LIPID, A1C #### [address] [address] Neutrophils/100 WBC (Bld) 68.2 % Normal 50.0-75.[address] [facility] Comment on above: Performed By: #### C BC, ADIFF, ANEU, PSA, CMP, TSHR, GFR, LIPID, A1C #### [address] [address] .GFRon 04-27-2024 GFR Non- 35 ml/min/1.73sqm Normal [facility] Comment on above: Result Comment: GFR Population mean for , Non- Americans Ages 20-29 = 116 mL/min/1.73 sq.m. Ages 30-39 = 107 mL/min/1.73 sq.m. Ages 40-49 = 99 mL/min/1.73 sq.m. Ages 50-59 = 93 mL/min/1.73 sq.m. Ages 60-69 = 85 mL/min/1.73 sq.m. Ages 70+ = 75 mL/min/1.73 sq.m. Chronic Kidney Disease: Less than 60 mL/min/1.73 square meters End Stage Renal Disease: Less than 15 mL/min/1.73 square meters Performed By: #### C BC, ADIFF, ANEU, PSA, CMP, TSHR, GFR, LIPID, A1C #### [address] [address] GFR 43 ml/min/1.73sqm Normal [facility] Comment on above: Result Comment: GFR Population mean for , Non- Americans Ages 20-29 = 116 mL/min/1.73 sq.m. Ages 30-39 = 107 mL/min/1.73 sq.m. Ages 40-49 = 99 mL/min/1.73 sq.m. Ages 50-59 = 93 mL/min/1.73 sq.m. Ages 60-69 = 85 mL/min/1.73 sq.m. Ages 70+ = 75 mL/min/1.73 sq.m. Chronic Kidney Disease: Less than 60 mL/min/1.73 square meters End Stage Renal Disease: Less than 15 mL/min/1.73 square meters Performed By: #### C BC, ADIFF, ANEU, PSA, CMP, TSHR, GFR, LIPID, A1C #### [address] [address] .NEUABSon 04-27-2024 Neutrophil, Absolute 3.8 10 3/mcL Normal 2.3-8.[address] [facility] Comment on above: Performed By: #### C BC, ADIFF, ANEU, PSA, CMP, TSHR, GFR, LIPID, A1C #### [address] [address] BMPon 04-27-2024 BUN/Creatinine Ratio 13 ratio Normal 7-[address] [facility] Comment on above: Performed By: #### C BC, ADIFF, ANEU, PSA, CMP, TSHR, GFR, LIPID, A1C #### [address] [address] Calcium [Mass/Vol] 8.2 mg/dL Low 8.4-10.2 [facility] Comment on above: Performed By: #### C BC, ADIFF, ANEU, PSA, CMP, TSHR, GFR, LIPID, A1C #### [address] [address] Chloride [Moles/Vol] 101 mmol/L Normal 98-[address] [facility] Comment on above: Performed By: #### C BC, ADIFF, ANEU, PSA, CMP, TSHR, GFR, LIPID, A1C #### [address] [address] CO2 [Moles/Vol] 24 mmol/L Normal 22-[address] [facility] Comment on above: Performed By: #### C BC, ADIFF, ANEU, PSA, CMP, TSHR, GFR, LIPID, A1C #### [address] [address] Creatinine [Mass/Vol] 1.96 mg/dL High 0.70-1.[address] [facility] Comment on above: Result Comment: Test ing performed on Siemens Dimension EXL analyzer using a modified kinetic Anna technique. Performed By: #### C BC, ADIFF, ANEU, PSA, CMP, TSHR, GFR, LIPID, A1C #### [address] [address] Electrolyte Balance 12.0 mEq/L Normal 4.0-15.0 [facility] Comment on above: Performed By: #### C BC, ADIFF, ANEU, PSA, CMP, TSHR, GFR, LIPID, A1C #### [address] [address] Glucose [Mass/Vol] 116 mg/dL High 70-105 [facility] Comment on above: Performed By: #### C BC, ADIFF, ANEU, PSA, CMP, TSHR, GFR, LIPID, A1C #### [address] [address] Potassium [Moles/Vol] 4.1 mmol/L Normal 3.5-5.[address] [facility] Comment on above: Performed By: #### C BC, ADIFF, ANEU, PSA, CMP, TSHR, GFR, LIPID, A1C #### [address] [address] Sodium [Moles/Vol] 137 mmol/L Normal 136-145 [facility] Comment on above: Performed By: #### C BC, ADIFF, ANEU, PSA, CMP, TSHR, GFR, LIPID, A1C #### [address] [address] Urea nitrogen [Mass/Vol] 26 mg/dL High 7-[address] [facility] Comment on above: Performed By: #### C BC, ADIFF, ANEU, PSA, CMP, TSHR, GFR, LIPID, A1C #### [address] [address] CBCon 04-27-2024 Erythrocyte distribution width (RBC) [Ratio] 13.9 % Normal 11.5-15.[address] [facility] Comment on above: Performed By: #### C BC, ADIFF, ANEU, PSA, CMP, TSHR, GFR, LIPID, A1C #### [address] [address] Hematocrit (Bld) [Volume fraction] 29.7 % Low 40.0-52.[address] [facility] Comment on above: Performed By: #### C BC, ADIFF, ANEU, PSA, CMP, TSHR, GFR, LIPID, A1C #### [address] [address] Hgb 10.4 G/dL Low 13.0-17.[address] [facility] Comment on above: Performed By: #### C BC, ADIFF, ANEU, PSA, CMP, TSHR, GFR, LIPID, A1C #### [address] [address] MCH (RBC) [Entitic mass] 29.9 pg Normal 27.0-33.[address] [facility] Comment on above: Performed By: #### C BC, ADIFF, ANEU, PSA, CMP, TSHR, GFR, LIPID, A1C #### [address] [address] MCHC 34.9 G/dL Normal 32.0-36.[address] [facility] Comment on above: Performed By: #### C BC, ADIFF, ANEU, PSA, CMP, TSHR, GFR, LIPID, A1C #### [address] [address] MCV (RBC) [Entitic vol] 85.4 fL Normal 81.0-100.[address] [facility] Comment on above: Performed By: #### C BC, ADIFF, ANEU, PSA, CMP, TSHR, GFR, LIPID, A1C #### [address] [address] Platelet 194 10 3/mcL Normal 150-[address] [facility] Comment on above: Performed By: #### C BC, ADIFF, ANEU, PSA, CMP, TSHR, GFR, LIPID, A1C #### [address] [address] Platelet mean volume (Bld) [Entitic vol] 6.6 fL Normal 6.4-10.[address] [facility] Comment on above: Performed By: #### C BC, ADIFF, ANEU, PSA, CMP, TSHR, GFR, LIPID, A1C #### [address] [address] RBC 3.48 10 6/mcL Low 4.50-6.[address] [facility] Comment on above: Performed By: #### C BC, ADIFF, ANEU, PSA, CMP, TSHR, GFR, LIPID, A1C #### [address] [address] WBC 5.5 10 3/mcL Normal 4.5-10.[address] [facility] Comment on above: Performed By: #### C BC, ADIFF, ANEU, PSA, CMP, TSHR, GFR, LIPID, A1C #### [address] [address] HFPon 04-27-2024 Bili Indirect Unable to Calculate Normal [facility] Comment on above: Result Comment: Unab le to calculate this test result accurately. Results used to calculate this test are outside the reportable range. Performed By: #### C BC, ADIFF, ANEU, PSA, CMP, TSHR, GFR, LIPID, A1C #### [address] [address] Albumin Level 3.2 G/dL Low 3.5-5.[address] [facility] Comment on above: Performed By: #### C BC, ADIFF, ANEU, PSA, CMP, TSHR, GFR, LIPID, A1C #### [address] [address] Albumin/Globulin [Mass ratio] 1.2 {ratio} Normal 1.1-2.[address] [facility] Comment on above: Performed By: #### C BC, ADIFF, ANEU, PSA, CMP, TSHR, GFR, LIPID, A1C #### [place] [address] ALP [Catalytic activity/Vol] 59 U/L Normal 40-[address] [facility] Comment on above: Performed By: #### C BC, ADIFF, ANEU, PSA, CMP, TSHR, GFR, LIPID, A1C #### [place] [address] ALT [Catalytic activity/Vol] 30 U/L Normal 16-[address] [facility] Comment on above: Performed By: #### C BC, ADIFF, ANEU, PSA, CMP, TSHR, GFR, LIPID, A1C #### [place] [address] AST [Catalytic activity/Vol] 20 U/L Normal 10-[address] [facility] Comment on above: Performed By: #### C BC, ADIFF, ANEU, PSA, CMP, TSHR, GFR, LIPID, A1C #### [place] [address] Bili Direct <0.1 Normal 0.0-0.[address] [facility] Comment on above: Result Comment: Use of this assay is not recommended for patients undergoing treatment with eltrombopag due to the potential for falsely elevated results. Performed By: #### C BC, ADIFF, ANEU, PSA, CMP, TSHR, GFR, LIPID, A1C #### [place] [address] Bili Total 0.3 mg/dL Normal 0.2-1.[address] [facility] Comment on above: Result Comment: Use of this assay is not recommended for patients undergoing treatment with eltrombopag due to the potential for falsely elevated results. Performed By: #### C BC, ADIFF, ANEU, PSA, CMP, TSHR, GFR, LIPID, A1C #### Christel [address] [place], [place] [address] Globulin 2.6 G/dL Normal [facility] Comment on above: Performed By: #### C BC, ADIFF, ANEU, PSA, CMP, TSHR, GFR, LIPID, A1C #### [address] [place] [id number] [place], [place] [address] Total Protein 5.8 G/dL Low 6.4-8.[address] [facility] Comment on above: Performed By: #### C BC, ADIFF, ANEU, PSA, CMP, TSHR, GFR, LIPID, A1C #### Christel [address] [address] LABORATORYOrdered By: SYSTEM SYSTEM on 04-27-2024 Troponin I.cardiac DL <= 0.01 ng/mL [Mass/Vol] 7 ng/L Normal 0 - 76 ng/L AO ADM SS Comment on above: Interpretive Data: H igh Sensitive Troponin I Reference Ranges: Female: 0-51 ng/L Male: 0-76 ng/L Testing performed on [employer] using a homogeneous sandwich chemiluminescent immunoassay based on [employer] technology. [facility] 04-27-2024 High Sensitivity Troponin I 7 ng/L Normal 0-[address] [facility] Comment on above: Result Comment: High Sensitive Troponin I Reference Ranges: Female: 0-51 ng/L Male: 0-76 ng/L Testing performed on [employer] using a homogeneous sandwich chemiluminescent immunoassay based on [employer] technology. Performed By: #### C BC, ADIFF, ANEU, PSA, CMP, TSHR, GFR, LIPID, A1C #### [address] [address] CHOLECYSTOSTOMY/ABSCESS DRAI N TUBE CHANGEon 04-23-2024 CHOLECYSTOSTOMY/ABS CESS DRAIN TUBE CHANGE Normal [facility] CALCIUMon 04-22-2024 Calcium [Mass/Vol] 8.2 mg/dL Low 8.6 - 10. 5 mg/dL [facility] Calcium [Mass/Vol] 8.2 mg/dL Low 8.6-10.5 [facility] Comment on above: Performed By: #### H FP, IPB, CHM7, MGO, CA ####[facility] (DEFAULT)[address] [place] [id number] CBC,PLATELETSon 04-22-2024 Erythrocyte distribution width (RBC) [Ratio] 13.3 % 10.9 - 14.3 % [facility] Hematocrit (Bld) [Volume fraction] 27.0 % Low 39.6 - 48.8 % [facility] Hemoglobin (Bld) [Mass/Vol] 9.1 g/dL Low 13.4 - 16.8 g/dL [facility] Interpretation and review of laboratory results Abnormal [facility] MCH (RBC) [Entitic mass] 29.1 pg 26.1 - 33.3 pg [facility] MCHC (RBC) [Mass/Vol] 33.7 g/dL 31.9 - 36.5 g/dL [facility] MCV (RBC) [Entitic vol] 86.3 fL 79.0 - 94.5 fL [facility] Platelet mean volume (Bld) [Entitic vol] 8.7 fL 8.7 - 12.3 fL [facility] Platelets (Bld) [#/Vol] 119 10*3/uL Low 146 - 337 K/uL [facility] RBC (Bld) [#/Vol] 3.13 10*6/uL Low [facility] WBC (Bld) [#/Vol] 3.70 10*3/uL Low 3.73 - 10. 10 K/uL [facility] Hematocrit (Bld) [Volume fraction] 27.0 % Low 39.6-48.8 [facility] Comment on above: Performed By: #### H [facility] ####[facility] (DEFAULT)[address] [place] [id number] Hemoglobin (Bld) [Mass/Vol] 9.1 g/dL Low 13.4-16.8 [facility] Comment on above: Performed By: #### H EMOGC ####[facility] (DEFAULT)[address] [place] [address] MCV (RBC) [Entitic vol] 86.3 fL Normal 79.0-94.5 [facility] Comment on above: Performed By: #### H EMOGC ####[facility] (DEFAULT)[address] [place] [address] Mean Cell Hgb 29.1 pg Normal 26.1-33.3 [facility] [facility] Comment on above: Performed By: #### H EMOGC ####[facility] (DEFAULT)[address] [place] [address] Mean Cell Hgb Conc 33.7 g/dL Normal 31.9-36.5 [facility] Comment on above: Performed By: #### H EMOGC ####[facility] (DEFAULT)[address] [place] [address] Platelet mean volume (Bld) [Entitic vol] 8.7 fL Normal 8.7-12.3 [facility] Comment on above: Performed By: #### H EMOGC ####[facility] (DEFAULT)[address] [place] [address] Platelets (Bld) [#/Vol] 119 10*3/uL Low 146-337 [facility] Comment on above: Performed By: #### H EMOGC ####[facility] (DEFAULT)[address] [place] [address] RBC (Bld) [#/Vol] 3.13 10*6/uL Low 4.38-5.83 [facility] Comment on above: Performed By: #### H EMOGC ####[facility] (DEFAULT)[address] [place] [address] RBC Distribution 13.3 % Normal 10.9-14.3 [facility] Comment on above: Performed By: #### H EMOGC ####[facility] (DEFAULT)[address] [place] [address] WBC (Bld) [#/Vol] 3.70 10*3/uL Low 3.73-10.10 [facility] Comment on above: Performed By: #### H [facility] ####[facility] (DEFAULT)[address] [place] [address] CHEM 7 (LYTES,BUN,CREA,GLUC) on 04-22-2024 Anion gap [Moles/Vol] 13 mmol/L 7 - 17 mmol/L [facility] Chloride [Moles/Vol] 109 mmol/L High 98 - 108 mmol/L [facility] CO2 [Moles/Vol] 20 mmol/L Low 21 - 31 mmol/L [facility] Creatinine [Mass/Vol] 2.24 mg/dL High 0.70 - 1.30 mg/dL [facility] eGFR, CKD-EPI, Male 33 Low - PINF [facility] Comment on above: Reported eGFR is bas ed on the CKD-EPI 2020 equation using creatinine, age, and sex. Glucose [Mass/Vol] 161 mg/dL High 70 - 99 mg/dL [facility] Osmolality Calc [Osmolality] 301 [facility] Potassium [Moles/Vol] 4.1 mmol/L 3.5 - 5.0 mmol/L [facility] Sodium [Moles/Vol] 138 mmol/L 135 - 145 mmol/L [facility] Urea nitrogen [Mass/Vol] 34 mg/dL High 7 - 25 mg/dL [facility] Urea nitrogen/Creatinine [Mass ratio] 15 mg/mg [facility] Anion gap [Moles/Vol] 13 mmol/L Normal 7-17 [facility] Comment on above: Performed By: #### H LINDY, VICTOR HUGO, CHM7, [place], [place] ####[facility] (DEFAULT)[address] [place] [address] Chloride [Moles/Vol] 109 mmol/L High 98-108 [facility] Comment on above: Performed By: #### H FP, IPB, CHM7, [place]GO, [place] ####[facility] (DEFAULT)[address] [place] [address] CO2 [Moles/Vol] 20 mmol/L Low 21-31 [facility] Comment on above: Performed By: #### H FP, IPB, CHM7, [place], [place] ####[facility] (DEFAULT)[address] [facility] [place] [address] Creatinine [Mass/Vol] 2.24 mg/dL High 0.70-1.30 [facility] Comment on above: Performed By: #### H FP, IPB, CHM7, [place]GO, [place] ####[facility] (DEFAULT)[address] [place] [address] GFR/1.73 sq M.predicted among non-blacks MDRD (S/P/Bld) [Vol rate/Area] 33 mL/min/{1.73_m2} Low >=60 [facility] Comment on above: Result Comment: Repo rted eGFR is based on the CKD-EPI 2020 equation using creatinine, age, and sex. Performed By: #### H FP, IPB, CHM7, [place]GO, [place] ####[facility] (DEFAULT)[address] [place] [address] Glucose [Mass/Vol] 161 mg/dL High 70-99 [facility] Comment on above: Performed By: #### H FP, IPB, CHM7, [place], [place] ####[facility] (DEFAULT)[address] [place] [address], [place] [address] Osmolality [Osmolality] 301 mosm/kg Normal 278-305 [facility] Comment on above: Performed By: #### H FP, IPB, CHM7, [place]GO, [place] ####[facility] (DEFAULT)[address] [place] [address] Potassium [Moles/Vol] 4.1 mmol/L Normal 3.5-5.0 [facility] Comment on above: Performed By: #### H FP, IPB, CHM7, [place]GO, [place] ####[facility] (DEFAULT)[address] [place] [address] Sodium [Moles/Vol] 138 mmol/L Normal 135-145 [facility] Comment on above: Performed By: #### H FP, IPB, CHM7, [place]GO, [place] ####[facility] (DEFAULT)[address] [place] [address] Urea nitrogen [Mass/Vol] 34 mg/dL High 7-25 [facility] Comment on above: Performed By: #### H FP, IPB, CHM7, [place]GO, [place] ####[facility] (DEFAULT)[address] [place] [address] Urea nitrogen/Creatinine [Mass ratio] 15 mg/mg Normal [facility] Comment on above: Performed By: #### H FP, IPB, CHM7, [place]GO, [place] ####[facility] (DEFAULT)[address] [place] [address] GENERAL PROCEDUREon 04-22-20 [facility] Radiology Study observation (narrative) [facility] GLUCOSE POCon 04-22-2024 Glucose [Mass/Vol] 135 mg/dL High 70 - 99 mg/dL [facility] Interpretation and review of laboratory results Abnormal [facility] POC Sample Type CAPBL [facility] Test performed at ad dress of the patient encounter. [facility] Glucose [Mass/Vol] 141 mg/dL High 70 - 99 mg/dL [facility] Interpretation and review of laboratory results Abnormal [facility] POC Sample Type CAPBL [facility] Test performed at ad dress of the patient encounter. [facility] HEPATIC FUNCTION PANELOrdere d By: Romy Burgess on 04-22-2024 Albumin [Mass/Vol] 3.2 g/dL Low 3.5 - 5.0 g/dL [facility] ALP [Catalytic activity/Vol] 47 U/L 32 - 126 U/L [facility] ALT [Catalytic activity/Vol] 12 U/L 10 - 52 U/L [facility] AST [Catalytic activity/Vol] 14 U/L 10 - 39 U/L [facility] Bilirubin [Mass/Vol] 0.2 mg/dL NINF - 1.5 mg/dL [facility] Bilirubin.direct [Mass/Vol] mg/dL NINF - 0.3 mg/dL [facility] Interpretation and review of laboratory results Abnormal [facility] Protein [Mass/Vol] 5.2 g/dL Low 6.4 - 8.3 g/dL [facility] HEPATIC FUNCTION PANELon Albumin [Mass/Vol] 3.2 g/dL Low 3.5-5.0 [facility] Comment on above: Performed By: #### H FP, IPB, CHM7, MGO, [place] ####[facility] (DEFAULT)[address] [place] [address] ALP [Catalytic activity/Vol] 47 U/L Normal 32-126 [facility] Comment on above: Performed By: #### H FP, IPB, CHM7, MGO, [place] ####[facility] (DEFAULT)[address] [place] [address] ALT [Catalytic activity/Vol] 12 U/L Normal 10-52 [facility] Comment on above: Performed By: #### H FP, IPB, CHM7, MGO, [place] ####[facility] (DEFAULT)[address] [facility] [place] [address] AST [Catalytic activity/Vol] 14 U/L Normal 10-39 [facility] Comment on above: Performed By: #### H FP, IPB, CHM7, [place], [place] ####[facility] (DEFAULT)[address] [place] [address] Bilirubin [Mass/Vol] 0.2 mg/dL Normal <1.5 [facility] Comment on above: Performed By: #### H FP, IPB, CHM7, [place], [place] ####[facility] (DEFAULT)[address] [place] [address] Bilirubin Direct < Normal <0.3 [facility] Comment on above: Performed By: #### H FP, IPB, CHM7, [place], [place] ####[facility] (DEFAULT)[address] [place] [address] Protein [Mass/Vol] 5.2 g/dL Low 6.4-8.3 [facility] Comment on above: Performed By: #### H FP, IPB, CHM7, [place], [place] ####[facility] (DEFAULT)[address] [place] [address] MAGNESIUMon 04-22-2024 Magnesium [Mass/Vol] 1.5 mg/dL Low 1.6 - 2.6 mg/dL [facility] Magnesium [Mass/Vol] 1.5 mg/dL Low 1.6-2.6 [facility] Comment on above: Performed By: #### H FP, IPB, CHM7, [place], [place] ####[facility] (DEFAULT)[address] [place] [address] No Panel Informationon 04-22 Interpretation and review of laboratory results Abnormal [facility] PHOSPHATE, INORGANICon 04-22 Interpretation and review of laboratory results Normal [facility] Phosphate [Mass/Vol] 4.1 mg/dL 2.2 - 4.6 mg/dL [facility] Phosphorous 4.1 mg/dL Normal 2.2-4.6 [facility] Comment on above: Performed By: #### H FP, IPB, CHM7, [place], [place] ####[facility] (DEFAULT)[address] [place] [address] PT,INR,PTTon 04-22-2024 aPTT Coag (PPP) [Time] 89.8 s High [facility] INR Coag (Bld) [Relative time] 1.1 {INR} 0.9 - 1.1 [facility] Interpretation and review of laboratory results Abnormal [facility] PT Coag (PPP) [Time] 14.7 s High [facility] aPTT Coag (Bld) [Time] 89.8 s High 24.0-34.3 [facility] Comment on above: Performed By: #### P TPTT ####[facility] (DEFAULT)[address] [place] [address] INR Coag (PPP) [Relative time] 1.1 {INR} Normal 0.9-1.1 [facility] Comment on above: Performed By: #### P TPTT ####[facility] (DEFAULT)[address] [place] [address] PT Coag (PPP) [Time] 14.7 s High 11.9-14.2 [facility] Comment on above: Performed By: #### P TPTT ####[facility] (DEFAULT)[address] [place] [address] PTTOrdered By: Ana emery on 04-22-2024 aPTT Coag (PPP) [Time] 89.2 s High [facility] Comment on above: Results inconsistent with previous results Interpretation and review of laboratory results Abnormal [facility] PTTon 04-22-2024 aPTT Coag (Bld) [Time] 89.2 s High 24.0-34.3 [facility] Comment on above: Order Comment: After initiation a PTT should be checked every 6 hours from time of last dose change or, if dose has not changed, 6 hours after last PTT result posted.? The frequent monitoring should occur until PTT in goal range for two consecutive lab draws without dose changes at which time PTTs may be checked no less frequently than every 12 hours.? If dose requires a change, PTT should be monitored at least every 6 hours until titration is no longer indicated, then as directed above.? If PTT above goal range refer to medication administration instructions. Result Comment: Resu lts inconsistent with previous results Performed By: #### P TT ####[facility] (DEFAULT)[address] [place] [address] CALCIUMon 04-21-2024 Calcium [Mass/Vol] 8.6 mg/dL 8.6 - 10. 5 mg/dL [facility] Calcium [Mass/Vol] 8.6 mg/dL Normal 8.6-10.5 [facility] Comment on above: Performed By: #### I PB, [place], MGO, CHM7 ####[facility] (DEFAULT)[address] [place] [address] CBC,PLATELETSon 04-21-2024 Erythrocyte distribution width (RBC) [Ratio] 13.3 % 10.9 - 14.3 % [facility] Hematocrit (Bld) [Volume fraction] 29.2 % Low 39.6 - 48.8 % [facility] Hemoglobin (Bld) [Mass/Vol] 10.1 g/dL Low 13.4 - 16.8 g/dL [facility] Interpretation and review of laboratory results Abnormal [facility] MCH (RBC) [Entitic mass] 29.4 pg 26.1 - 33.3 pg [facility] MCHC (RBC) [Mass/Vol] 34.6 g/dL 31.9 - 36.5 g/dL [facility] MCV (RBC) [Entitic vol] 85.1 fL 79.0 - 94.5 fL [facility] Platelet mean volume (Bld) [Entitic vol] 8.3 fL Low 8.7 - 12.3 fL [facility] Platelets (Bld) [#/Vol] 139 10*3/uL Low 146 - 337 K/uL [facility] RBC (Bld) [#/Vol] 3.43 10*6/uL Low [facility] WBC (Bld) [#/Vol] 4.18 10*3/uL 3.73 - 10. 10 K/uL [facility] Hematocrit (Bld) [Volume fraction] 29.2 % Low 39.6-48.8 [facility] Comment on above: Performed By: #### H EMOGC ####[facility] (DEFAULT)[address] [place] [address] Hemoglobin (Bld) [Mass/Vol] 10.1 g/dL Low 13.4-16.8 [facility] Comment on above: Performed By: #### H EMOGC ####[facility] (DEFAULT)[address] [place] [address] MCV (RBC) [Entitic vol] 85.1 fL Normal 79.0-94.5 [facility] Comment on above: Performed By: #### H EMOGC ####[facility] (DEFAULT)[address] [place] [address], [place] [address] Mean Cell Hgb 29.4 pg Normal 26.1-33.3 [facility] Comment on above: Performed By: #### H EMOGC ####[facility] (DEFAULT)[address] [place] [address] Mean Cell Hgb Conc 34.6 g/dL Normal 31.9-36.5 [facility] Comment on above: Performed By: #### H EMOGC ####[facility] (DEFAULT)[address] [place] [address], [place] [address] Platelet mean volume (Bld) [Entitic vol] 8.3 fL Low 8.7-12.3 [facility] Comment on above: Performed By: #### H EMOGC ####[facility] (DEFAULT)[address] [place] [address], [place] [address] Platelets (Bld) [#/Vol] 139 10*3/uL Low 146-337 [facility] Comment on above: Performed By: #### H EMOGC ####[facility] (DEFAULT)[address] [place] [address] RBC (Bld) [#/Vol] 3.43 10*6/uL Low 4.38-5.83 [facility] Comment on above: Performed By: #### H EMO ####[facility] (DEFAULT)[address] [place] [address] RBC Distribution 13.3 % Normal 10.9-14.3 [facility] Comment on above: Performed By: #### H [facility] ####[facility] (DEFAULT)[address] [place] [address] WBC (Bld) [#/Vol] 4.18 10*3/uL Normal 3.73-10.10 [facility] Comment on above: Performed By: #### H [facility] ####[facility] (DEFAULT)[address] [place] [address] CHEM 7 (LYTES,BUN,CREA,GLUC) on 04-21-2024 Anion gap [Moles/Vol] 14 mmol/L 7 - 17 mmol/L [facility] Chloride [Moles/Vol] 109 mmol/L High 98 - 108 mmol/L [facility] CO2 [Moles/Vol] 20 mmol/L Low 21 - 31 mmol/L [facility] Creatinine [Mass/Vol] 3.10 mg/dL High 0.70 - 1.30 mg/dL [facility] eGFR, CKD-EPI, Male 22 Low - PINF [facility] Comment on above: Reported eGFR is bas ed on the CKD-EPI 2020 equation using creatinine, age, and sex. Glucose [Mass/Vol] 131 mg/dL High 70 - 99 mg/dL [facility] Interpretation and review of laboratory results Abnormal [facility] Osmolality Calc [Osmolality] 305 [facility] Potassium [Moles/Vol] 4.2 mmol/L 3.5 - 5.0 mmol/L [facility] Sodium [Moles/Vol] 139 mmol/L 135 - 145 mmol/L [facility] Urea nitrogen [Mass/Vol] 46 mg/dL High 7 - 25 mg/dL [facility] Urea nitrogen/Creatinine [Mass ratio] 15 mg/mg [facility] Anion gap [Moles/Vol] 14 mmol/L Normal 7-17 [facility] Comment on above: Performed By: #### I PB, [place], MGO, CHM7 ####[facility] (DEFAULT)[address] [place] [address] Chloride [Moles/Vol] 109 mmol/L High 98-108 [facility] Comment on above: Performed By: #### I PB, [place], MGO, CHM7 ####[facility] (DEFAULT)[address] [place] [address] CO2 [Moles/Vol] 20 mmol/L Low 21-31 [facility] Comment on above: Performed By: #### I PB, [place], MGO, CHM7 ####[facility] (DEFAULT)[address] [place] [address] Creatinine [Mass/Vol] 3.10 mg/dL High 0.70-1.30 [facility] Comment on above: Performed By: #### I PB, [place], MGO, CHM7 ####[facility] (DEFAULT)[address] [place] [address] GFR/1.73 sq M.predicted among non-blacks MDRD (S/P/Bld) [Vol rate/Area] 22 mL/min/{1.73_m2} Low >=60 [facility] Comment on above: Result Comment: Repo rted eGFR is based on the CKD-EPI 2020 equation using creatinine, age, and sex. Performed By: #### I PB, [place], MGO, CHM7 ####[facility] (DEFAULT)[address] [place] [address] Glucose [Mass/Vol] 131 mg/dL High 70-99 [facility] Comment on above: Performed By: #### I PB, CA, MGO, CHM7 ####[facility] (DEFAULT)[address] [place] [address] Osmolality [Osmolality] 305 mosm/kg Normal 278-305 [facility] Comment on above: Performed By: #### I PB, [place], MGO, CHM7 ####[facility] (DEFAULT)[address] [place] [address] Potassium [Moles/Vol] 4.2 mmol/L Normal 3.5-5.0 [facility] Comment on above: Performed By: #### I PB, CA, MGO, CHM7 ####[facility] (DEFAULT)[address] [place] [address] Sodium [Moles/Vol] 139 mmol/L Normal 135-145 [facility] Comment on above: Performed By: #### I PB, CA, MGO, CHM7 ####[facility] (DEFAULT)[address] [place] [address] Urea nitrogen [Mass/Vol] 46 mg/dL High 7-25 [facility] Comment on above: Performed By: #### I PB, [place], MGO, CHM7 ####[facility] (DEFAULT)[address] [facility] [place] [address] Urea nitrogen/Creatinine [Mass ratio] 15 mg/mg Normal [facility] Comment on above: Performed By: #### I PB, CA, MGO, CHM7 ####[facility] (DEFAULT)[address] [place] [address] CREATININE,RANDOM URINEon Creatinine (24H U) [Mass/Vol] 100.18 mg/dL [facility] The reference range has not been established for random urine specimens. The test result should be integrated into the clinical context for interpretation. [facility] GLUCOSE POCon 04-21-2024 Glucose [Mass/Vol] 177 mg/dL High 70 - 99 mg/dL [facility] Interpretation and review of laboratory results Abnormal [facility] Test performed at ad dress of the patient encounter. [facility] Glucose [Mass/Vol] 160 mg/dL High 70 - 99 mg/dL [facility] Interpretation and review of laboratory results Abnormal [facility] Sample [facility]BL [facility] Test performed at ad dress of the patient encounter. [facility] Glucose [Mass/Vol] 134 mg/dL High 70 - 99 mg/dL [facility] Interpretation and review of laboratory results Abnormal [facility] Test performed at ad dress of the patient encounter. [facility] Glucose [Mass/Vol] 143 mg/dL High 70 - 99 mg/dL [facility] Interpretation and review of laboratory results Abnormal [facility] POC Sample Type [facility] Test performed at ad dress of the patient encounter. [facility] Glucose [Mass/Vol] 185 mg/dL High 70 - 99 mg/dL [facility] Interpretation and review of laboratory results Abnormal [facility] POC Sample Type [facility] Test performed at ad dress of the patient encounter. [facility] LYTES (NA, K, CL) - URINE - RANDOMon 04-21-2024 Chloride (24H U) [Moles/Vol] 59 mmol/L [facility] Potassium (24H U) [Moles/Vol] 38.0 mmol/L [facility] Sodium (24H U) [Moles/Vol] 63 mmol/L [facility] The reference range has not been established for random urine specimens. The test result should be integrated into the clinical context for interpretation. [facility] MAGNESIUMon 04-21-2024 Magnesium [Mass/Vol] 1.9 mg/dL 1.6 - 2.6 mg/dL [facility] Magnesium [Mass/Vol] 1.9 mg/dL Normal 1.6-2.6 [facility] Comment on above: Performed By: #### I PB, [place], MGO, CHM7 ####[facility] (DEFAULT)[address] [place] [address] No Panel Informationon 04-21 Interpretation and review of laboratory results Normal [facility] OSMOLALITY, URINEon 04-21-20 Interpretation and review of laboratory results Normal [facility] Osmolality (U) [Osmolality] 475 mosm/kg [facility] PHOSPHATE, INORGANICon 04-21 Phosphate [Mass/Vol] 4.4 mg/dL 2.2 - 4.6 mg/dL [facility] Phosphorous 4.4 mg/dL Normal 2.2-4.6 [facility] Comment on above: Performed By: #### I PB, [place], MGO, CHM7 ####[facility] (DEFAULT)[address] [place] [address] PT,INR,PTTon 04-21-2024 aPTT Coag (PPP) [Time] 35.0 s High [facility] INR Coag (Bld) [Relative time] 1.2 {INR} High 0.9 - 1.1 [facility] Interpretation and review of laboratory results Abnormal [facility] PT Coag (PPP) [Time] 15.1 s High [facility] aPTT Coag (Bld) [Time] 35.0 s High 24.0-34.3 [facility] Comment on above: Performed By: #### P TPTT ####[facility] (DEFAULT)[address] [place] [address] INR Coag (PPP) [Relative time] 1.2 {INR} High 0.9-1.1 [facility] Comment on above: Performed By: #### P TPTT ####[facility] (DEFAULT)[address] [place] [address] PT Coag (PPP) [Time] 15.1 s High 11.9-14.2 [facility] Comment on above: Performed By: #### P TPTT ####[facility] (DEFAULT)[address] [place] [address] PTTOrdered By: Wilmar Anderson on on 04-21-2024 aPTT Coag (PPP) [Time] 34.1 s [facility] Comment on above: Results inconsistent with previous results Interpretation and review of laboratory results Normal [facility] PTTon 04-21-2024 aPTT Coag (Bld) [Time] 34.1 s Normal 24.0-34.3 [facility] Comment on above: Order Comment: After initiation a PTT should be checked every 6 hours from time of last dose change or, if dose has not changed, 6 hours after last PTT result posted.? The frequent monitoring should occur until PTT in goal range for two consecutive lab draws without dose changes at which time PTTs may be checked no less frequently than every 12 hours.? If dose requires a change, PTT should be monitored at least every 6 hours until titration is no longer indicated, then as directed above.? If PTT above goal range refer to medication administration instructions. Result Comment: Resu lts inconsistent with previous results Performed By: #### P TT ####[facility] (DEFAULT)[address] [place] [address] aPTT Coag (Bld) [Time] 58.7 s High 24.0-34.3 [facility] Comment on above: Order Comment: After initiation a PTT should be checked every 6 hours from time of last dose change or, if dose has not changed, 6 hours after last PTT result posted.? The frequent monitoring should occur until PTT in goal range for two consecutive lab draws without dose changes at which time PTTs may be checked no less frequently than every 12 hours.? If dose requires a change, PTT should be monitored at least every 6 hours until titration is no longer indicated, then as directed above.? If PTT above goal range refer to medication administration instructions. Performed By: #### P TT ####[facility] (DEFAULT)[address] [place] [address] PTTOrdered By: Magdi Ramirez on 04-21-2024 aPTT Coag (PPP) [Time] 58.7 s High [facility] Interpretation and review of laboratory results Abnormal [facility] US Kidneyon 04-21-2024 IMPRESSION: Normal sonographic appearance of kidneys without hydronephrosis. I personally viewed and interpreted these images and I have reviewed and approved this report. OLOGY EXAM: US RENAL, 01/2024 22:19 PM CLINICAL INDICATIONS: KEYONNA, evaluate for hydronephrosis COMPARISON: CT abdomen and pelvis April 09, 2024 TECHNIQUE: Multiple longitudinal and transverse real-time grayscale images of both kidneys were obtained. Color-flow Doppler images were also obtained. FINDINGS: Right Kidney: The right kidney measures 15.4 cm in length, which is within normal limits for the patient's age and height. Renal cortical thickness and echogenicity are within normal limits. Renal Pelvis: There is no hydronephrosis. No obvious renal calculi. Left Kidney: The left kidney measures 15.1 cm in length, which is within normal limits for the patient's age and height. Renal cortical thickness and echogenicity are within normal limits. Renal Pelvis: There is no hydronephrosis. No obvious renal calculi. Bladder: Underdistended. No obvious wall thickening or mass. RADIOLOGY Birgit Meadows MD - 04/21/2024 EXAM: US RENAL, 04/20/2024 22:19 PM CLINICAL INDICATIONS: KEYONNA, evaluate for hydronephrosis COMPARISON: CT abdomen and pelvis April 09, 2024 TECHNIQUE: Multiple longitudinal and transverse real-time grayscale images of both kidneys were obtained. Color-flow Doppler images were also obtained. FINDINGS: Right Kidney: The right kidney measures 15.4 cm in length, which is within normal limits for the patient's age and height. Renal cortical thickness and echogenicity are within normal limits. Renal Pelvis: There is no hydronephrosis. No obvious renal calculi. Left Kidney: The left kidney measures 15.1 cm in length, which is within normal limits for the patient's age and height. Renal cortical thickness and echogenicity are within normal limits. Renal Pelvis: There is no hydronephrosis. No obvious renal calculi. Bladder: Underdistended. No obvious wall thickening or mass. IMPRESSION IMPRESSION: Normal sonographic appearance of kidneys without hydronephrosis. I personally viewed and interpreted these images and I have reviewed and approved this report. [facility] US KidneyOrdered By: Birgit Meadows on 04-21-2024 [facility] Work Phone: US RENALon 04-21-2024 US RENAL Normal [facility] CALCIUMon 04-20-2024 Calcium [Mass/Vol] 8.8 mg/dL 8.6 - 10. 5 mg/dL [facility] Calcium [Mass/Vol] 8.8 mg/dL Normal 8.6-10.5 [facility] Comment on above: Performed By: #### C A, C7ED, HFP, IPB, MGO ####[facility] (DEFAULT)[address] [place] [address] CBC AND ELECTRONIC DIFFon Basophils (Bld) [#/Vol] K/uL 0.00 - 0.09 K/uL [facility] Basophils/100 WBC (Bld) 0.4 % [facility] Differential cell count method Nom (Bld) Electronic Differential [facility] Eosinophils (Bld) [#/Vol] 0.13 10*3/uL 0.00 - 0.48 K/uL [facility] Eosinophils/100 WBC (Bld) 2.8 % [facility] Erythrocyte distribution width (RBC) [Ratio] 13.4 % 10.9 - 14.3 % [facility] Hematocrit (Bld) [Volume fraction] 30.3 % Low 39.6 - 48.8 % [facility] Hemoglobin (Bld) [Mass/Vol] 10.3 g/dL Low 13.4 - 16.8 g/dL [facility] Immature granulocytes (Bld) [#/Vol] K/uL NINF - 0.07 K/uL [facility] Immature granulocytes/100 WBC (Bld) 0.2 % [facility] Interpretation and review of laboratory results Abnormal [facility] Lymphocytes (Bld) [#/Vol] 0.81 10*3/uL Low 0.83 - 3.57 K/uL [facility] Lymphocytes/100 WBC (Bld) 17.6 % [facility] MCH (RBC) [Entitic mass] 29.3 pg 26.1 - 33.3 pg [facility] MCHC (RBC) [Mass/Vol] 34.0 g/dL 31.9 - 36.5 g/dL [facility] MCV (RBC) [Entitic vol] 86.3 fL 79.0 - 94.5 fL [facility] Monocytes (Bld) [#/Vol] 0.47 10*3/uL 0.24 - 0.93 K/uL [facility] Monocytes/100 WBC (Bld) 10.2 % [facility] Neutrophils (Bld) [#/Vol] 3.17 10*3/uL 1.57 - 6.19 K/uL [facility] Nucleated RBC/100 WBC (Bld) [Ratio] 0.0 % [facility] Platelet mean volume (Bld) [Entitic vol] 8.6 fL Low 8.7 - 12.3 fL [facility] Platelets (Bld) [#/Vol] 165 10*3/uL 146 - 337 K/uL [facility] RBC (Bld) [#/Vol] 3.51 10*6/uL Low [facility] Segmented neutrophils/100 WBC (Bld) 68.8 % [facility] WBC (Bld) [#/Vol] 4.61 10*3/uL 3.73 - 10. 10 K/uL [facility] Abs Baso Auto < Normal 0.00-0.09 [facility] Comment on above: Performed By: #### L [id number] ####[facility] (DEFAULT)[address] [place] [address] Basophils/100 WBC (Bld) 0.4 % Normal [facility] Comment on above: Performed By: #### L [id number] ####[facility] (DEFAULT)[address] [place] [address] DIFF STATUS Electronic Differential Normal [facility] Comment on above: Performed By: #### L [id number] ####[facility] (DEFAULT)[address] [place] [address] Eosinophils (Bld) [#/Vol] 0.13 10*3/uL Normal 0.00-0.48 [facility] Comment on above: Performed By: #### L [id number] ####[facility] (DEFAULT)[address] [place] [address] Eosinophils/100 WBC (Bld) 2.8 % Normal [facility] Comment on above: Performed By: #### L [id number] ####[facility] (DEFAULT)[address] [place] [address] Hematocrit (Bld) [Volume fraction] 30.3 % Low 39.6-48.8 [facility] Comment on above: Performed By: #### L [id number] ####[facility] (DEFAULT)[address] [place] [address] Hemoglobin (Bld) [Mass/Vol] 10.3 g/dL Low 13.4-16.8 [facility] Comment on above: Performed By: #### L [id number] ####[facility] (DEFAULT)[address] [place] [address] Immature Grans % 0.2 % Normal [facility] Comment on above: Performed By: #### L [id number] ####[facility] (DEFAULT)[address] [place] [address] Immature Grans Absolute < Normal <=0.07 [facility] Comment on above: Performed By: #### L [id number] ####[facility] (DEFAULT)[address] [place] [address] Lymphocytes (Bld) [#/Vol] 0.81 10*3/uL Low 0.83-3.57 [facility] Comment on above: Performed By: #### L [id number] ####[facility] (DEFAULT)[address] [facility] [place] [address] Lymphocytes/100 WBC (Bld) 17.6 % Normal [facility] Comment on above: Performed By: #### L [id number] ####[facility] (DEFAULT)[address] [facility] [place] [address] MCV (RBC) [Entitic vol] 86.3 fL Normal 79.0-94.5 [facility] Comment on above: Performed By: #### L [id number] ####[facility] (DEFAULT)[address] [facility] [place] [address] Mean Cell Hgb 29.3 pg Normal 26.1-33.3 [facility] Comment on above: Performed By: #### L [id number] ####[facility] (DEFAULT)[address] [place] [address] Mean Cell Hgb Conc 34.0 g/dL Normal 31.9-36.5 [facility] Comment on above: Performed By: #### L [id number] ####[facility] (DEFAULT)[address] [place] [address] Monocytes (Bld) [#/Vol] 0.47 10*3/uL Normal 0.24-0.93 [facility] Comment on above: Performed By: #### L [id number] ####[facility] (DEFAULT)[address] [place] [address] Monocytes/100 WBC (Bld) 10.2 % Normal [facility] Comment on above: Performed By: #### L [id number] ####[facility] (DEFAULT)[address] [place] [address] Nucleated RBC 0.0 /100 WBC Normal <=0.2 [facility] Comment on above: Performed By: #### L [id number] ####[facility] (DEFAULT)[address] [place] [address] Platelet mean volume (Bld) [Entitic vol] 8.6 fL Low 8.7-12.3 [facility] Comment on above: Performed By: #### L [id number] ####[facility] (DEFAULT)[address] [place] [address] Platelets (Bld) [#/Vol] 165 10*3/uL Normal 146-337 [facility] Comment on above: Performed By: #### L [id number] ####[facility] (DEFAULT)[address] [place] [address] RBC (Bld) [#/Vol] 3.51 10*6/uL Low 4.38-5.83 [facility] Comment on above: Performed By: #### L [id number] ####[facility] (DEFAULT)[address] [place] [address] RBC Distribution 13.4 % Normal 10.9-14.3 [facility] Comment on above: Performed By: #### L [id number] ####[facility] (DEFAULT)[address] [place] [address] Segs + Bands Auto 68.8 % Normal [facility] Comment on above: Performed By: #### L [id number] ####[facility] (DEFAULT)[address] [place] [address] Segs + Bands,Absolute Auto 3.17 K/uL Normal 1.57-6.19 [facility] Comment on above: Performed By: #### L [id number] ####[facility] (DEFAULT)[address] [place] [address] WBC (Bld) [#/Vol] 4.61 10*3/uL Normal 3.73-10.10 [facility] Comment on above: Performed By: #### L [id number] ####[facility] (DEFAULT)[address] [place] [address] CBC,PLATELETSon 04-20-2024 Erythrocyte distribution width (RBC) [Ratio] 13.2 % 10.9 - 14.3 % [facility] Hematocrit (Bld) [Volume fraction] 29.0 % Low 39.6 - 48.8 % [facility] Hemoglobin (Bld) [Mass/Vol] 9.8 g/dL Low 13.4 - 16.8 g/dL [facility] Interpretation and review of laboratory results Abnormal [facility] MCH (RBC) [Entitic mass] 29.3 pg 26.1 - 33.3 pg [facility] MCHC (RBC) [Mass/Vol] 33.8 g/dL 31.9 - 36.5 g/dL [facility] MCV (RBC) [Entitic vol] 86.6 fL 79.0 - 94.5 fL [facility] Platelet mean volume (Bld) [Entitic vol] 8.9 fL 8.7 - 12.3 fL [facility] Platelets (Bld) [#/Vol] 151 10*3/uL 146 - 337 K/uL [facility] RBC (Bld) [#/Vol] 3.35 10*6/uL Low [facility] WBC (Bld) [#/Vol] 4.23 10*3/uL 3.73 - 10. 10 K/uL [facility] Hematocrit (Bld) [Volume fraction] 29.0 % Low 39.6-48.8 [facility] Comment on above: Performed By: #### H EMOGC ####[facility] (DEFAULT)[address] [facility] [place] [address] Hemoglobin (Bld) [Mass/Vol] 9.8 g/dL Low 13.4-16.8 [facility] Comment on above: Performed By: #### H EMOGC ####[facility] (DEFAULT)[address] [facility] [place] [address] MCV (RBC) [Entitic vol] 86.6 fL Normal 79.0-94.5 [facility] Comment on above: Performed By: #### H EMOGC ####[facility] (DEFAULT)[address] [facility] [place] [address] Mean Cell Hgb 29.3 pg Normal 26.1-33.3 [facility] Comment on above: Performed By: #### H EMOGC ####[facility] (DEFAULT)[address] [place] [address] Mean Cell Hgb Conc 33.8 g/dL Normal 31.9-36.5 [facility] Comment on above: Performed By: #### H EMOGC ####[facility] (DEFAULT)[address] [place] [address] Platelet mean volume (Bld) [Entitic vol] 8.9 fL Normal 8.7-12.3 [facility] Comment on above: Performed By: #### H EMOGC ####[facility] (DEFAULT)[address] [place] [address] Platelets (Bld) [#/Vol] 151 10*3/uL Normal 146-337 [facility] Comment on above: Performed By: #### H EMOGC ####[facility] (DEFAULT)[address] [place] [address] RBC (Bld) [#/Vol] 3.35 10*6/uL Low 4.38-5.83 [facility] Comment on above: Performed By: #### H [facility] ####[facility] (DEFAULT)[address] [place] [address] RBC Distribution 13.2 % Normal 10.9-14.3 [facility] Comment on above: Performed By: #### H [facility] ####[facility] (DEFAULT)[address] [place] [address] WBC (Bld) [#/Vol] 4.23 10*3/uL Normal 3.73-10.10 [facility] Comment on above: Performed By: #### H [facility] ####[facility] (DEFAULT)[address] [place] [address] [facility] 7 - EDon 04-20-2024 Anion gap [Moles/Vol] 14 mmol/L 7 - 17 mmol/L [facility] Chloride [Moles/Vol] 104 mmol/L 98 - 108 mmol/L [facility] CO2 [Moles/Vol] 21 mmol/L 21 - 31 mmol/L [facility] Creatinine [Mass/Vol] 3.94 mg/dL High 0.70 - 1.30 mg/dL [facility] eGFR, CKD-EPI, Male 17 Low - PINF [facility] Comment on above: Reported eGFR is bas ed on the CKD-EPI 2020 equation using creatinine, age, and sex. Glucose [Mass/Vol] 162 mg/dL High 70 - 99 mg/dL [facility] Osmolality Calc [Osmolality] 302 O[facility]ast [facility] Potassium [Moles/Vol] 4.5 mmol/L 3.5 - 5.0 mmol/L [facility] Sodium [Moles/Vol] 134 mmol/L Low 135 - 145 mmol/L [facility] Urea nitrogen [Mass/Vol] 55 mg/dL High 7 - 25 mg/dL [facility] Urea nitrogen/Creatinine [Mass ratio] 14 mg/mg [facility] Anion gap [Moles/Vol] 14 mmol/L Normal 7-17 [facility] Comment on above: Performed By: #### C A, C7ED, HFP, IPB, MGO ####[facility] (DEFAULT)[address] [facility] [place] [address] Chloride [Moles/Vol] 104 mmol/L Normal 98-108 [facility] Comment on above: Performed By: #### C A, C7ED, HFP, IPB, MGO ####[facility] (DEFAULT)[address] [facility] [place] [address] CO2 [Moles/Vol] 21 mmol/L Normal 21-31 [facility] Comment on above: Performed By: #### C A, C7ED, HFP, IPB, MGO ####[facility] (DEFAULT)[address] [place] [address] Creatinine [Mass/Vol] 3.94 mg/dL High 0.70-1.30 [facility] Comment on above: Performed By: #### C A, C7ED, HFP, IPB, MGO ####[facility] (DEFAULT)[address] [place] [address] GFR/1.73 sq M.predicted among non-blacks MDRD (S/P/Bld) [Vol rate/Area] 17 mL/min/{1.73_m2} Low >=60 [facility] Comment on above: Result Comment: Repo rted eGFR is based on the CKD-EPI 2020 equation using creatinine, age, and sex. Performed By: #### C A, C7ED, HFP, IPB, MGO ####[facility] (DEFAULT)[address] [place] [address] Glucose [Mass/Vol] 162 mg/dL High 70-99 [facility] Comment on above: Performed By: #### C A, C7ED, HFP, IPB, MGO ####[facility] (DEFAULT)[address] [place] [address] Osmolality [Osmolality] 302 mosm/kg Normal 278-305 [facility] Comment on above: Performed By: #### C A, C7ED, HFP, IPB, MGO ####[facility] (DEFAULT)[address] [place] [address] Potassium [Moles/Vol] 4.5 mmol/L Normal 3.5-5.0 [facility] Comment on above: Performed By: #### C A, C7ED, HFP, IPB, MGO ####[facility] (DEFAULT)[address] [place] [address] Sodium [Moles/Vol] 134 mmol/L Low 135-145 [facility] Comment on above: Performed By: #### C A, C7ED, HFP, IPB, MGO ####[facility] (DEFAULT)[address] [place] [address] Urea nitrogen [Mass/Vol] 55 mg/dL High 7-25 [facility] Comment on above: Performed By: #### C A, C7ED, HFP, IPB, MGO ####[facility] (DEFAULT)[address] [place] [address] Urea nitrogen/Creatinine [Mass ratio] 14 mg/mg Normal [facility] Comment on above: Performed By: #### C A, C7ED, HFP, IPB, MGO ####[facility] (DEFAULT)[address] [facility] [place] [address] CREATININE,RANDOM URINEon Creatinine (U) [Mass/Vol] 100.18 mg/dL Normal [facility] Comment on above: Order Comment: The r eference range has not been established for random urine specimens. The test result should be integrated into the clinical context for interpretation. Performed By: #### U CRER, ULYTR, UOSMR ####[facility] (DEFAULT)[address] [facility] [place] [address] CT PELVIS WITHOUT CONTRASTon 04-20-2024 CT PELVIS WITHOUT CONTRAST Normal [facility] CT Pelvis WO contraston IMPRESSION: Decreased size of the bilateral inguinal collections. OLOGY EXAM: CT PELVIS WITH OUT CONTRAST, 04/20/2024 17:07 PM COMPARISON: CT April 09, 2024 CLINICAL INDICATIONS: [id number]; ROSA MARIA drain to left groin, hx of penile cancer, need to asses fluid status near drain site TECHNIQUE: CT scanning of the pelvis was performed without the administration of intravenous contrast. PROTOCOL: Standard. FINDINGS: GI: Visualized GI structures are unremarkable. Bladder: Bladder distends normally. Genital: The prostate and seminal vesicles are unremarkable. Adenopathy: No pelvic adenopathy is identified. Vascular: Atherosclerosis with normal caliber of the iliac arteries. Musculoskeletal: Interval decrease in size of the thick-walled right inguinal collection which contains a drain measuring 5.0 x 1.8 cm, previously 5.4 x 2.6 cm. The left inguinal collection has decreased in size following placement of a large-bore pigtail drain. This now measures 8.4 x 5.6 cm, previously 11.0 x 5.2 cm. The previously seen drain in the anterior mid thigh has been removed in the interim. Degenerative changes of the osseous structures. No acute abnormality. RADIOLOGY Quentin Shah MD - 04/20/2024 EXAM: CT PELVIS WITHOUT CONTRAST, 04/20/2024 17:07 PM COMPARISON: CT April 09, 2024 CLINICAL INDICATIONS: ; ROSA MARIA drain to left groin, hx of penile cancer, need to asses fluid status near drain site TECHNIQUE: CT scanning of the pelvis was performed without the administration of intravenous contrast. PROTOCOL: Standard. FINDINGS: GI: Visualized GI structures are unremarkable. Bladder: Bladder distends normally. Genital: The prostate and seminal vesicles are unremarkable. Adenopathy: No pelvic adenopathy is identified. Vascular: Atherosclerosis with normal caliber of the iliac arteries. Musculoskeletal: Interval decrease in size of the thick-walled right inguinal collection which contains a drain measuring 5.0 x 1.8 cm, previously 5.4 x 2.6 cm. The left inguinal collection has decreased in size following placement of a large-bore pigtail drain. This now measures 8.4 x 5.6 cm, previously 11.0 x 5.2 cm. The previously seen drain in the anterior mid thigh has been removed in the interim. Degenerative changes of the osseous structures. No acute abnormality. IMPRESSION IMPRESSION: Decreased size of the bilateral inguinal collections. [facility] Radiology Study observation (narrative) [facility] CT Pelvis WO contrastOrdered By: Quentin Shah on 04-20-2024 [facility] HEPATIC FUNCTION PANELon Albumin [Mass/Vol] 3.7 g/dL 3.5 - 5.0 g/dL [facility] ALP [Catalytic activity/Vol] 53 U/L 32 - 126 U/L [facility] ALT [Catalytic activity/Vol] 12 U/L 10 - 52 U/L [facility] AST [Catalytic activity/Vol] 13 U/L 10 - 39 U/L [facility] Bilirubin [Mass/Vol] 0.3 mg/dL [facility] mg/dL [facility] Bilirubin.direct [Mass/Vol] 0.1 mg/dL [facility] - 0.3 mg/dL [facility] Protein [Mass/Vol] 6.4 g/dL 6.4 - 8.3 g/dL [facility] Albumin [Mass/Vol] 3.7 g/dL Normal 3.5-5.0 [facility] Comment on above: Performed By: #### C A, C7ED, HFP, IPB, MGO ####[facility] (DEFAULT)[address] [place] [address] ALP [Catalytic activity/Vol] 53 U/L Normal 32-126 [facility] Comment on above: Performed By: #### C A, C7ED, HFP, IPB, MGO ####[facility] (DEFAULT)[address] [place] [address] ALT [Catalytic activity/Vol] 12 U/L Normal 10-52 [facility] Comment on above: Performed By: #### C A, C7ED, HFP, IPB, MGO ####[facility] (DEFAULT)[address] [place] [address] AST [Catalytic activity/Vol] 13 U/L Normal 10-39 [facility] Comment on above: Performed By: #### C A, C7ED, HFP, IPB, MGO ####[facility] (DEFAULT)[address] [place] [address] Bilirubin [Mass/Vol] 0.3 mg/dL Normal <1.5 [facility] Comment on above: Performed By: #### C A, C7ED, HFP, IPB, MGO ####[facility] (DEFAULT)[address] [place] [address] Bilirubin.indirect [Mass/Vol] 0.1 mg/dL Normal <0.3 [facility] Comment on above: Performed By: #### C A, C7ED, HFP, IPB, MGO ####[facility] (DEFAULT)[address] [place] [address] Protein [Mass/Vol] 6.4 g/dL Normal 6.4-8.3 [facility] Comment on above: Performed By: #### C A, C7ED, HFP, IPB, MGO ####[facility] (DEFAULT)[address] [facility] [place] [address] LYTES (NA, K, CL) - URINE - RANDOMon 04-20-2024 Sodium (U) [Moles/Vol] 63 mmol/L Normal [facility] Comment on above: Order Comment: The r eference range has not been established for random urine specimens. The test result should be integrated into the clinical context for interpretation. Performed By: #### U CRER, ULYTR, UOSMR ####[facility] (DEFAULT)[address] [place] [address] Urine Chloride 59 mmol/L Normal [facility] Comment on above: Order Comment: The r eference range has not been established for random urine specimens. The test result should be integrated into the clinical context for interpretation. Performed By: #### U CRER, ULYTR, UOSMR ####[facility] (DEFAULT)[address] [place] [address] Urine Potassium 38.0 mmol/L Normal [facility] Comment on above: Order Comment: The r eference range has not been established for random urine specimens. The test result should be integrated into the clinical context for interpretation. Performed By: #### U CRER, ULYTR, UOSMR ####[facility] (DEFAULT)[address] [place] [address] MAGNESIUMon 04-20-2024 Magnesium [Mass/Vol] 1.5 mg/dL Low 1.6 - 2.6 mg/dL [facility] Magnesium [Mass/Vol] 1.5 mg/dL Low 1.6-2.6 [facility] Comment on above: Performed By: #### C A, C7ED, HFP, IPB, MGO ####[facility] (DEFAULT)[address] [place] [id number] No Panel Informationon 04-20 Interpretation and review of laboratory results Abnormal [facility] Interpretation and review of laboratory results Normal [facility] OSMOLALITY, URINEon 04-20-20 24 Osmolality, Urine 475 mOsm/kg Normal 300-900 [facility] Comment on above: Performed By: #### U CRER, ULYTR, UOSMR ####[facility] (DEFAULT)[address] [place] [address] PHOSPHATE, INORGANICon 04-20 Phosphate [Mass/Vol] 4.2 mg/dL 2.2 - 4.6 mg/dL [facility] Phosphorous 4.2 mg/dL Normal 2.2-4.6 [facility] Comment on above: Performed By: #### C A, C7ED, HFP, IPB, MGO ####[facility] (DEFAULT)[address] [place] [id number] PTTon 04-20-2024 aPTT Coag (PPP) [Time] 32.6 s [facility] Interpretation and review of laboratory results Normal [facility] aPTT Coag (Bld) [Time] 32.6 s Normal 24.0-34.3 [facility] Comment on above: Order Comment: Draw prior to initiation of intravenous Heparin. Performed By: #### P TT ####[facility] (DEFAULT)[address] [place] [address] Kidneyon 04-20-2024 Radiology Study observation (narrative) [facility] .GFRon 04-16-2024 GFR 15 ml/min/1.73sqm Normal [facility] Comment on above: Result Comment: GFR Population mean for , Non- Americans Ages 20-29 = 116 mL/min/1.73 sq.m. Ages 30-39 = 107 mL/min/1.73 sq.m. Ages 40-49 = 99 mL/min/1.73 sq.m. Ages 50-59 = 93 mL/min/1.73 sq.m. Ages 60-69 = 85 mL/min/1.73 sq.m. Ages 70+ = 75 mL/min/1.73 sq.m. Chronic Kidney Disease: Less than 60 mL/min/1.73 square meters End Stage Renal Disease: Less than 15 mL/min/1.73 square meters Performed By: #### C BC, ADIFF, ANEU, PSA, CMP, TSHR, GFR, LIPID, A1C #### [address] [address] GFR Non- 12 ml/min/1.73sqm Normal [facility] Comment on above: Result Comment: GFR Population mean for , Non- Americans Ages 20-29 = 116 mL/min/1.73 sq.m. Ages 30-39 = 107 mL/min/1.73 sq.m. Ages 40-49 = 99 mL/min/1.73 sq.m. Ages 50-59 = 93 mL/min/1.73 sq.m. Ages 60-69 = 85 mL/min/1.73 sq.m. Ages 70+ = 75 mL/min/1.73 sq.m. Chronic Kidney Disease: Less than 60 mL/min/1.73 square meters End Stage Renal Disease: Less than 15 mL/min/1.73 square meters Performed By: #### C BC, ADIFF, ANEU, PSA, CMP, TSHR, GFR, LIPID, A1C #### [address] [address] BMPon 04-16-2024 BUN/Creatinine Ratio 8 ratio Normal 7-[address] [facility] Comment on above: Performed By: #### C BC, ADIFF, ANEU, PSA, CMP, TSHR, GFR, LIPID, A1C #### [address] [address] Calcium [Mass/Vol] 9.2 mg/dL Normal 8.4-10.2 [facility] Comment on above: Performed By: #### C BC, ADIFF, ANEU, PSA, CMP, TSHR, GFR, LIPID, A1C #### [address] [address] Chloride [Moles/Vol] 101 mmol/L Normal 98-[address] [facility] Comment on above: Performed By: #### C BC, ADIFF, ANEU, PSA, CMP, TSHR, GFR, LIPID, A1C #### [address] [address] CO2 [Moles/Vol] 21 mmol/L Low 22-[address] [facility] Comment on above: Performed By: #### C BC, ADIFF, ANEU, PSA, CMP, TSHR, GFR, LIPID, A1C #### [address] [address] Creatinine [Mass/Vol] 4.90 mg/dL High 0.70-1.[address] [facility] Comment on above: Result Comment: Test ing performed on Siemens Dimension EXL analyzer using a modified kinetic Anna technique. Performed By: #### C BC, ADIFF, ANEU, PSA, CMP, TSHR, GFR, LIPID, A1C #### [address] [address] Electrolyte Balance 14.0 mEq/L Normal 4.0-15.0 [facility] Comment on above: Performed By: #### C BC, ADIFF, ANEU, PSA, CMP, TSHR, GFR, LIPID, A1C #### [address] [address] Glucose [Mass/Vol] 211 mg/dL High 70-105 [facility] Comment on above: Performed By: #### C BC, ADIFF, ANEU, PSA, CMP, TSHR, GFR, LIPID, A1C #### [address] [address] Potassium [Moles/Vol] 4.9 mmol/L Normal 3.5-5.[address] [facility] Comment on above: Performed By: #### C BC, ADIFF, ANEU, PSA, CMP, TSHR, GFR, LIPID, A1C #### [address] [address] Sodium [Moles/Vol] 136 mmol/L Normal 136-145 [facility] Comment on above: Performed By: #### C BC, ADIFF, ANEU, PSA, CMP, TSHR, GFR, LIPID, A1C #### [address] [address] Urea nitrogen [Mass/Vol] 39 mg/dL High 7-[address] [facility] Comment on above: Performed By: #### C BC, ADIFF, ANEU, PSA, CMP, TSHR, GFR, LIPID, A1C #### [address] [address] LABORATORYOrdered By: SYSTEM SYSTEM on 04-16-2024 Calcium [Mass/Vol] 9.2 mg/dL Normal 8.4 - 10. 2 mg/dL AO ADM SS Chloride [Moles/Vol] 101 mmol/L Normal 98 - 107 mmol/L AO ADM SS CO2 [Moles/Vol] 21 mmol/L Low 22 - 29 mmol/L AO ADM SS Creatinine [Mass/Vol] 4.90 mg/dL High 0.70 - 1.30 mg/dL [facility] Comment on above: Interpretive Data: T esting performed on Siemens Dimension EXL analyzer using a modified kinetic Anna technique. Electrolyte Balance 14.0 mEq/L Normal 4.0 - 15 .0 mEq/L AO ADM SS GFR/1.73 sq M.predicted among blacks MDRD (S/P/Bld) [Vol rate/Area] 15 ml/min/1.73sqm Invalid Interpretation Code AO Chemistry S Comment on above: Interpretive Data: GFR Population mean for , Non- Americans Ages 20-29 = 116 mL/min/1.73 sq.m. Ages 30-39 = 107 mL/min/1.73 sq.m. Ages 40-49 = 99 mL/min/1.73 sq.m. Ages 50-59 = 93 mL/min/1.73 sq.m. Ages 60-69 = 85 mL/min/1.73 sq.m. Ages 70+ = 75 mL/min/1.73 sq.m. Chronic Kidney Disease: Less than 60 mL/min/1.73 square meters End Stage Renal Disease: Less than 15 mL/min/1.73 square meters GFR/1.73 sq M.predicted among non-blacks MDRD (S/P/Bld) [Vol rate/Area] 12 ml/min/1.73sqm Invalid Interpretation Code AO Chemistry S Comment on above: Interpretive Data: GFR Population mean for , Non- Americans Ages 20-29 = 116 mL/min/1.73 sq.m. Ages 30-39 = 107 mL/min/1.73 sq.m. Ages 40-49 = 99 mL/min/1.73 sq.m. Ages 50-59 = 93 mL/min/1.73 sq.m. Ages 60-69 = 85 mL/min/1.73 sq.m. Ages 70+ = 75 mL/min/1.73 sq.m. Chronic Kidney Disease: Less than 60 mL/min/1.73 square meters End Stage Renal Disease: Less than 15 mL/min/1.73 square meters Glucose [Mass/Vol] 211 mg/dL High 70 - 105 mg/dL AO ADM SS Potassium [Moles/Vol] 4.9 mmol/L Normal 3.5 - 5.1 mmol/L AO ADM SS Sodium [Moles/Vol] 136 mmol/L Normal 136 - 145 mmol/L AO ADM SS Urea nitrogen [Mass/Vol] 39 mg/dL High 7 - 18 mg/dL AO ADM SS Urea nitrogen/Creatinine [Mass ratio] 8 ratio Normal 7 - 27 ratio AO ADM SS CALCIUMon 04-14-2024 Calcium [Mass/Vol] 8.2 mg/dL Low 8.6 - 10. 5 mg/dL [facility] Calcium [Mass/Vol] 8.2 mg/dL Low 8.6-10.5 [facility] Comment on above: Performed By: #### C David, VICTOR HUGO, MGIsabelle, CHM7 ####[facility] (DEFAULT)[address] [place] [address] CBC,PLATELETSon 04-14-2024 Erythrocyte distribution width (RBC) [Ratio] 13.7 % 10.9 - 14.3 % [facility] Hematocrit (Bld) [Volume fraction] 30.4 % Low 39.6 - 48.8 % [facility] Hemoglobin (Bld) [Mass/Vol] 10.3 g/dL Low 13.4 - 16.8 g/dL [facility] Interpretation and review of laboratory results Abnormal [facility] MCH (RBC) [Entitic mass] 29.8 pg 26.1 - 33.3 pg [facility] MCHC (RBC) [Mass/Vol] 33.9 g/dL 31.9 - 36.5 g/dL [facility] MCV (RBC) [Entitic vol] 87.9 fL 79.0 - 94.5 fL [facility] Platelet mean volume (Bld) [Entitic vol] 8.8 fL 8.7 - 12.3 fL [facility] Platelets (Bld) [#/Vol] 159 10*3/uL 146 - 337 K/uL [facility] RBC (Bld) [#/Vol] 3.46 10*6/uL Low [facility] WBC (Bld) [#/Vol] 5.39 10*3/uL 3.73 - 10. 10 K/uL [facility] Hematocrit (Bld) [Volume fraction] 30.4 % Low 39.6-48.8 [facility] Comment on above: Performed By: #### H EMOGC ####[facility] (DEFAULT)[address] [place] [address] Hemoglobin (Bld) [Mass/Vol] 10.3 g/dL Low 13.4-16.8 [facility] Comment on above: Performed By: #### H EMOGC ####[facility] (DEFAULT)[address] [place] [address] MCV (RBC) [Entitic vol] 87.9 fL Normal 79.0-94.5 [facility] Comment on above: Performed By: #### H EMOGC ####[facility] (DEFAULT)[address] [place] [address] Mean Cell Hgb 29.8 pg Normal 26.1-33.3 [facility] Comment on above: Performed By: #### H EMOGC ####[facility] (DEFAULT)[address] [place] [address] Mean Cell Hgb Conc 33.9 g/dL Normal 31.9-36.5 [facility] Comment on above: Performed By: #### H EMOGC ####[facility] (DEFAULT)[address] [place] [address] Platelet mean volume (Bld) [Entitic vol] 8.8 fL Normal 8.7-12.3 [facility] Comment on above: Performed By: #### H EMOGC ####[facility] (DEFAULT)[address] [place] [address] Platelets (Bld) [#/Vol] 159 10*3/uL Normal 146-337 [facility] Comment on above: Performed By: #### H [facility] ####[facility] (DEFAULT)[address] [place] [address] RBC (Bld) [#/Vol] 3.46 10*6/uL Low 4.38-5.83 [facility] Comment on above: Performed By: #### H EMO ####[facility] (DEFAULT)[address] [place] [address] RBC Distribution 13.7 % Normal 10.9-14.3 [facility] Comment on above: Performed By: #### H [facility] ####[facility] (DEFAULT)[address] [place] [address] WBC (Bld) [#/Vol] 5.39 10*3/uL Normal 3.73-10.10 [facility] Comment on above: Performed By: #### H [facility] ####[facility] (DEFAULT)[address] [place] [address] CHEM 7 (LYTES,BUN,CREA,GLUC) on 04-14-2024 Anion gap [Moles/Vol] 13 mmol/L 7 - 17 mmol/L [facility] Chloride [Moles/Vol] 106 mmol/L 98 - 108 mmol/L [facility] CO2 [Moles/Vol] 20 mmol/L Low 21 - 31 mmol/L [facility] Creatinine [Mass/Vol] 1.20 mg/dL 0.70 - 1.30 mg/dL [facility] eGFR, CKD-EPI, Male 70 - PINF [facility] Comment on above: Reported eGFR is bas ed on the CKD-EPI 2020 equation using creatinine, age, and sex. Glucose [Mass/Vol] 201 mg/dL High 70 - 99 mg/dL [facility] Osmolality Calc [Osmolality] 290 [facility] Potassium [Moles/Vol] 3.8 mmol/L 3.5 - 5.0 mmol/L [facility] Sodium [Moles/Vol] 135 mmol/L 135 - 145 mmol/L [facility] Urea nitrogen [Mass/Vol] 13 mg/dL 7 - 25 mg/dL [facility] Urea nitrogen/Creatinine [Mass ratio] 11 mg/mg [facility] Anion gap [Moles/Vol] 13 mmol/L Normal 7-17 [facility] Comment on above: Performed By: #### Valentino Hernandez, IPB, MGO, CHM7 ####[facility] (DEFAULT)[address] [facility] [place] [address] Chloride [Moles/Vol] 106 mmol/L Normal 98-108 [facility] Comment on above: Performed By: #### Valentino Hernandez, IPB, MGO, CHM7 ####[facility] (DEFAULT)[address] [place] [address] CO2 [Moles/Vol] 20 mmol/L Low 21-31 [facility] Comment on above: Performed By: #### Valentino Hernandez, IPB, MGO, CHM7 ####[facility] (DEFAULT)[address] [place] [address] Creatinine [Mass/Vol] 1.20 mg/dL Normal 0.70-1.30 [facility] Comment on above: Performed By: #### Valentino A, IPB, MGO, CHM7 ####[facility] (DEFAULT)[address] [place] [address] GFR/1.73 sq M.predicted among non-blacks MDRD (S/P/Bld) [Vol rate/Area] 70 mL/min/{1.73_m2} Normal >=60 [facility] Comment on above: Result Comment: Repo rted eGFR is based on the CKD-EPI 2020 equation using creatinine, age, and sex. Performed By: #### C A, IPB, MGO, CHM7 ####[facility] (DEFAULT)[address] [place] [address] Glucose [Mass/Vol] 201 mg/dL High 70-99 [facility] Comment on above: Performed By: #### Valentino Hernandez, ABB, MGO, CHM7 ####[facility] (DEFAULT)[address] [place] [address] Osmolality [Osmolality] 290 mosm/kg Normal 278-305 [facility] Comment on above: Performed By: #### Valentino Hernandez, IPB, MGO, CHM7 ####[facility] (DEFAULT)[address] [place] [address] Potassium [Moles/Vol] 3.8 mmol/L Normal 3.5-5.0 [facility] Comment on above: Performed By: #### Valentino Hernandez, IPB, MGO, CHM7 ####[facility] (DEFAULT)[address] [place] [address] Sodium [Moles/Vol] 135 mmol/L Normal 135-145 [facility] Comment on above: Performed By: #### Valentino Hernandez, IPB, MGO, CHM7 ####[facility] (DEFAULT)[address] [place] [address] Urea nitrogen [Mass/Vol] 13 mg/dL Normal 7-25 [facility] Comment on above: Performed By: #### Valentino Hernandez, IPB, MGO, CHM7 ####[facility] (DEFAULT)[address] [place] [address] Urea nitrogen/Creatinine [Mass ratio] 11 mg/mg Normal [facility] Comment on above: Performed By: #### Valentino Hernandez, IPB, MGO, CHM7 ####[facility] (DEFAULT)[address] [place] [address] DRAINAGE SOFT TISSUE PERCUTA NEOUS W/ IMAGE GUIDANCEon 04-14-2024 DRAINAGE SOFT TISSUE PERCUTANEOUS W/ IMAGE GUIDANCE Normal [facility] GLUCOSE POCon 04-14-2024 Glucose [Mass/Vol] 253 mg/dL High 70 - 99 mg/dL [facility] Comment on above: Notified RNread back Interpretation and review of laboratory results Abnormal [facility] POC Sample Type CAPBL [facility] Test performed at ad dress of the patient encounter. [facility] Glucose [Mass/Vol] 188 mg/dL High 70 - 99 mg/dL [facility] Interpretation and review of laboratory results Abnormal [facility] POC Sample Type CAPBL [facility] Test performed at ad dress of the patient encounter. [facility] MAGNESIUMon 04-14-2024 Magnesium [Mass/Vol] 1.8 mg/dL 1.6 - 2.6 mg/dL [facility] Magnesium [Mass/Vol] 1.8 mg/dL Normal 1.6-2.6 [facility] Comment on above: Performed By: #### C A, IPB, MGO, CHM7 ####[facility] (DEFAULT)[address] [place] [address] No Panel Informationon 04-14 Interpretation and review of laboratory results Abnormal [facility] Interpretation and review of laboratory results Normal [facility] PHOSPHATE, INORGANICon 04-14 Phosphate [Mass/Vol] 4.1 mg/dL 2.2 - 4.6 mg/dL [facility] Phosphorous 4.1 mg/dL Normal 2.2-4.6 [facility] Comment on above: Performed By: #### C A, IPB, MGO, CHM7 ####[facility] (DEFAULT)[address] [place] [address] CALCIUMon 04-13-2024 Calcium [Mass/Vol] 8.4 mg/dL Low 8.6 - 10. 5 mg/dL [facility] Calcium [Mass/Vol] 8.4 mg/dL Low 8.6-10.5 [facility] Comment on above: Performed By: #### H FP, CA, MGO, IPB, CHM7 ####[facility] (DEFAULT)[address] [place] [address] Calcium [Mass/Vol] 8.7 mg/dL 8.6 - 10. 5 mg/dL [facility] CBC,PLATELETSon 04-13-2024 Erythrocyte distribution width (RBC) [Ratio] 13.6 % 10.9 - 14.3 % [facility] Hematocrit (Bld) [Volume fraction] 32.3 % Low 39.6 - 48.8 % [facility] Hemoglobin (Bld) [Mass/Vol] 10.8 g/dL Low 13.4 - 16.8 g/dL [facility] Interpretation and review of laboratory results Abnormal [facility] MCH (RBC) [Entitic mass] 29.1 pg 26.1 - 33.3 pg [facility] MCHC (RBC) [Mass/Vol] 33.4 g/dL 31.9 - 36.5 g/dL [facility] MCV (RBC) [Entitic vol] 87.1 fL 79.0 - 94.5 fL [facility] Platelet mean volume (Bld) [Entitic vol] 8.7 fL 8.7 - 12.3 fL [facility] Platelets (Bld) [#/Vol] 169 10*3/uL 146 - 337 K/uL [facility] RBC (Bld) [#/Vol] 3.71 10*6/uL Low [facility] WBC (Bld) [#/Vol] 5.98 10*3/uL 3.73 - 10. 10 K/uL [facility] Hematocrit (Bld) [Volume fraction] 32.3 % Low 39.6-48.8 [facility] Comment on above: Performed By: #### H [facility] ####[facility] (DEFAULT)[address] [place] [address] Hemoglobin (Bld) [Mass/Vol] 10.8 g/dL Low 13.4-16.8 [facility] Comment on above: Performed By: #### H [facility] ####[facility] (DEFAULT)[address] [place] [address] MCV (RBC) [Entitic vol] 87.1 fL Normal 79.0-94.5 [facility] Comment on above: Performed By: #### H EMOGC ####[facility] (DEFAULT)[address] [place] [address] Mean Cell Hgb 29.1 pg Normal 26.1-33.3 [facility] Comment on above: Performed By: #### H EMOGC ####[facility] (DEFAULT)[address] [facility] [place] [address] Mean Cell Hgb Conc 33.4 g/dL Normal 31.9-36.5 [facility] Comment on above: Performed By: #### H EMOGC ####[facility] (DEFAULT)[address] [place] [address] Platelet mean volume (Bld) [Entitic vol] 8.7 fL Normal 8.7-12.3 [facility] Comment on above: Performed By: #### H EMOGC ####[facility] (DEFAULT)[address] [place] [address] Platelets (Bld) [#/Vol] 169 10*3/uL Normal 146-337 [facility] Comment on above: Performed By: #### H EMOGC ####[facility] (DEFAULT)[address] [place] [address] RBC (Bld) [#/Vol] 3.71 10*6/uL Low 4.38-5.83 [facility] Comment on above: Performed By: #### H EMOGC ####[facility] (DEFAULT)[address] [place] [address] RBC Distribution 13.6 % Normal 10.9-14.3 [facility] Comment on above: Performed By: #### H EMOGC ####[facility] (DEFAULT)[address] [place] [address] WBC (Bld) [#/Vol] 5.98 10*3/uL Normal 3.73-10.10 [facility] Comment on above: Performed By: #### H [facility] ####[facility] (DEFAULT)[address] [place] [address] CHEM 7 (LYTES,BUN,CREA,GLUC) on 04-13-2024 Anion gap [Moles/Vol] 15 mmol/L 7 - 17 mmol/L [facility] Chloride [Moles/Vol] 105 mmol/L 98 - 108 mmol/L [facility] CO2 [Moles/Vol] 23 mmol/L 21 - 31 mmol/L [facility] Creatinine [Mass/Vol] 1.00 mg/dL 0.70 - 1.30 mg/dL [facility] eGFR, CKD-EPI, Male 87 - PINF [facility] Comment on above: Reported eGFR is bas ed on the CKD-EPI 2020 equation using creatinine, age, and sex. Glucose [Mass/Vol] 228 mg/dL High 70 - 99 mg/dL [facility] Osmolality Calc [Osmolality] 299 [facility] Potassium [Moles/Vol] 3.6 mmol/L 3.5 - 5.0 mmol/L [facility] Sodium [Moles/Vol] 139 mmol/L 135 - 145 mmol/L [facility] Urea nitrogen [Mass/Vol] 14 mg/dL 7 - 25 mg/dL [facility] Urea nitrogen/Creatinine [Mass ratio] 14 mg/mg [facility] Anion gap [Moles/Vol] 15 mmol/L Normal 7-17 [facility] Comment on above: Performed By: #### H FP, CA, MGO, IPB, CHM7 ####[facility] (DEFAULT)[address] [place] [address] Chloride [Moles/Vol] 105 mmol/L Normal 98-108 [facility] Comment on above: Performed By: #### H FP, CA, MGO, IPB, CHM7 ####[facility] (DEFAULT)[address] [place] [address] CO2 [Moles/Vol] 23 mmol/L Normal 21-31 [facility] Comment on above: Performed By: #### H FP, CA, MGO, IPB, CHM7 ####[facility] (DEFAULT)[address] [place] [address] Creatinine [Mass/Vol] 1.00 mg/dL Normal 0.70-1.30 [facility] Comment on above: Performed By: #### H FP, CA, MGO, IPB, CHM7 ####[facility] (DEFAULT)[address] [place] [address], [place] [address] GFR/1.73 sq M.predicted among non-blacks MDRD (S/P/Bld) [Vol rate/Area] 87 mL/min/{1.73_m2} Normal >=60 [facility] Comment on above: Result Comment: Repo rted eGFR is based on the CKD-EPI 2020 equation using creatinine, age, and sex. Performed By: #### H FP, CA, MGO, IPB, CHM7 ####[facility] (DEFAULT)[address] [place] [address] Glucose [Mass/Vol] 228 mg/dL High 70-99 [facility] Comment on above: Performed By: #### H FP, CA, MGO, IPB, CHM7 ####[facility] (DEFAULT)[address] [place] [address] Osmolality [Osmolality] 299 mosm/kg Normal 278-305 [facility] Comment on above: Performed By: #### H FP, CA, MGO, IPB, CHM7 ####[facility] (DEFAULT)[address] [place] [address] Potassium [Moles/Vol] 3.6 mmol/L Normal 3.5-5.0 [facility] Comment on above: Performed By: #### H FP, CA, MGO, IPB, CHM7 ####[facility] (DEFAULT)[address] [place] [address] Sodium [Moles/Vol] 139 mmol/L Normal 135-145 [facility] Comment on above: Performed By: #### H FP, CA, MGO, IPB, CHM7 ####[facility] (DEFAULT)[address] [place] [address] Urea nitrogen [Mass/Vol] 14 mg/dL Normal 7-25 [facility] Comment on above: Performed By: #### H FP, CA, MGO, IPB, CHM7 ####[facility] (DEFAULT)[address] [place] [address] Urea nitrogen/Creatinine [Mass ratio] 14 mg/mg Normal [facility] Comment on above: Performed By: #### H FP, CA, MGO, IPB, CHM7 ####[facility] (DEFAULT)[address] [place] [address] Anion gap [Moles/Vol] 16 mmol/L 7 - 17 mmol/L [facility] Chloride [Moles/Vol] 105 mmol/L 98 - 108 mmol/L [facility] CO2 [Moles/Vol] 21 mmol/L 21 - 31 mmol/L [facility] Creatinine [Mass/Vol] 1.03 mg/dL 0.70 - 1.30 mg/dL [facility] eGFR, CKD-EPI, Male 84 - PINF [facility] Comment on above: Reported eGFR is bas ed on the CKD-EPI 2020 equation using creatinine, age, and sex. Glucose [Mass/Vol] 184 mg/dL High 70 - 99 mg/dL [facility] Osmolality Calc [Osmolality] 295 [facility] Potassium [Moles/Vol] 3.8 mmol/L 3.5 - 5.0 mmol/L [facility] Sodium [Moles/Vol] 138 mmol/L 135 - 145 mmol/L [facility] Urea nitrogen [Mass/Vol] 14 mg/dL 7 - 25 mg/dL [facility] Urea nitrogen/Creatinine [Mass ratio] 14 mg/mg [facility] GLUCOSE POCon 04-13-2024 Glucose [Mass/Vol] 213 mg/dL High 70 - 99 mg/dL [facility] Interpretation and review of laboratory results Abnormal [facility] POC Sample Type CAPBL [facility] Test performed at ad dress of the patient encounter. [facility] Glucose [Mass/Vol] 225 mg/dL High 70 - 99 mg/dL [facility] Interpretation and review of laboratory results Abnormal [facility] POC Sample Type CAPBL [facility] Test performed at ad dress of the patient encounter. [facility] Glucose [Mass/Vol] 195 mg/dL High 70 - 99 mg/dL [facility] Interpretation and review of laboratory results Abnormal [facility] POC Sample Type CAPBL [facility] Test performed at ad dress of the patient encounter. [facility] Glucose [Mass/Vol] 221 mg/dL High 70 - 99 mg/dL [facility] Interpretation and review of laboratory results Abnormal [facility] POC Sample Type CAPBL [facility] Test performed at ad dress of the patient encounter. [facility] Glucose [Mass/Vol] 176 mg/dL High 70 - 99 mg/dL [facility] Interpretation and review of laboratory results Abnormal [facility] POC Sample [facility] Test performed at ad dress of the patient encounter. [facility] HEMOGLOBIN A1Con 04-13-2024 Average glucose Estimated from glycated hemoglobin (Bld) [Mass/Vol] 166 mg/dL [facility] HbA1c (Bld) [Mass fraction] 7.4 % High 4.7 - 5.6 % [facility] Interpretation and review of laboratory results Abnormal [facility] HEPATIC FUNCTION PANELon Albumin [Mass/Vol] 3.2 g/dL Low 3.5 - 5.0 g/dL [facility] ALP [Catalytic activity/Vol] 48 U/L 32 - 126 U/L [facility] ALT [Catalytic activity/Vol] 13 U/L 10 - 52 U/L [facility] AST [Catalytic activity/Vol] 14 U/L 10 - 39 U/L [facility] Bilirubin [Mass/Vol] 0.4 mg/dL NINF - 1.5 mg/dL [facility] Bilirubin.direct [Mass/Vol] 0.1 mg/dL NINF - 0.3 mg/dL [facility] Interpretation and review of laboratory results Abnormal [facility] Protein [Mass/Vol] 5.6 g/dL Low 6.4 - 8.3 g/dL [facility] Albumin [Mass/Vol] 3.2 g/dL Low 3.5-5.0 [facility] Comment on above: Performed By: #### H FP, CA, MGO, IPB, CHM7 ####[facility] (DEFAULT)[address] [place] [address] ALP [Catalytic activity/Vol] 48 U/L Normal 32-126 [facility] Comment on above: Performed By: #### H FP, CA, MGO, IPB, CHM7 ####[facility] (DEFAULT)[address] [place] [address] ALT [Catalytic activity/Vol] 13 U/L Normal 10-52 [facility] Comment on above: Performed By: #### H FP, CA, MGO, IPB, CHM7 ####[facility] (DEFAULT)[address] [place] [address] AST [Catalytic activity/Vol] 14 U/L Normal 10-39 [facility] Comment on above: Performed By: #### H FP, CA, MGO, IPB, CHM7 ####[facility] (DEFAULT)[address] [place] [address] Bilirubin [Mass/Vol] 0.4 mg/dL Normal <1.5 [facility] Comment on above: Performed By: #### H FP, CA, MGO, IPB, CHM7 ####[facility] (DEFAULT)[address] [place] [address] Bilirubin.indirect [Mass/Vol] 0.1 mg/dL Normal <0.3 [facility] Comment on above: Performed By: #### H FP, CA, MGO, IPB, CHM7 ####[facility] (DEFAULT)[address] [facility] [place] [address] Protein [Mass/Vol] 5.6 g/dL Low 6.4-8.3 [facility] Comment on above: Performed By: #### H FP, CA, MGO, IPB, CHM7 ####[facility] (DEFAULT)[address] [facility] [place] [address] MAGNESIUMon 04-13-2024 Magnesium [Mass/Vol] 1.5 mg/dL Low 1.6 - 2.6 mg/dL [facility] Magnesium [Mass/Vol] 1.5 mg/dL Low 1.6-2.6 [facility] Comment on above: Performed By: #### H FP, CA, MGO, IPB, CHM7 ####[facility] (DEFAULT)[address] [facility] [place] [address] Magnesium [Mass/Vol] 1.5 mg/dL Low 1.6 - 2.6 mg/dL [facility] No Panel Informationon 04-13 [facility] Interpretation and review of laboratory results Abnormal [facility] Interpretation and review of laboratory results Abnormal [facility] Interpretation and review of laboratory results Normal [facility] PHOSPHATE, INORGANICon 04-13 Interpretation and review of laboratory results Normal [facility] Phosphate [Mass/Vol] 3.8 mg/dL 2.2 - 4.6 mg/dL [facility] Phosphorous 3.8 mg/dL Normal 2.2-4.6 [facility] Comment on above: Performed By: #### H FP, CA, MGO, IPB, CHM7 ####[facility] (DEFAULT)[address] [place] [address] Phosphate [Mass/Vol] 4.0 mg/dL 2.2 - 4.6 mg/dL [facility] CALCIUMon 04-12-2024 Calcium [Mass/Vol] 8.7 mg/dL Normal 8.6-10.5 [facility] Comment on above: Performed By: #### C A, CHM7, MGO, IPB ####[facility] (DEFAULT)[address] [place] [address] CBC,PLATELETSon 04-12-2024 Erythrocyte distribution width (RBC) [Ratio] 13.6 % 10.9 - 14.3 % [facility] Hematocrit (Bld) [Volume fraction] 33.0 % Low 39.6 - 48.8 % [facility] Hemoglobin (Bld) [Mass/Vol] 11.2 g/dL Low 13.4 - 16.8 g/dL [facility] Interpretation and review of laboratory results Abnormal [facility] MCH (RBC) [Entitic mass] 29.9 pg 26.1 - 33.3 pg [facility] MCHC (RBC) [Mass/Vol] 33.9 g/dL 31.9 - 36.5 g/dL [facility] MCV (RBC) [Entitic vol] 88.0 fL 79.0 - 94.5 fL [facility] Platelet mean volume (Bld) [Entitic vol] 8.7 fL 8.7 - 12.3 fL [facility] Platelets (Bld) [#/Vol] 186 10*3/uL 146 - 337 K/uL [facility] RBC (Bld) [#/Vol] 3.75 10*6/uL Low [facility] WBC (Bld) [#/Vol] 5.28 10*3/uL 3.73 - 10. 10 K/uL [facility] Hematocrit (Bld) [Volume fraction] 33.0 % Low 39.6-48.8 [facility] Comment on above: Performed By: #### H EMOGC ####[facility] (DEFAULT)[address] [place] [address] Hemoglobin (Bld) [Mass/Vol] 11.2 g/dL Low 13.4-16.8 [facility] Comment on above: Performed By: #### H EMOGC ####[facility] (DEFAULT)[address] [place] [address] MCV (RBC) [Entitic vol] 88.0 fL Normal 79.0-94.5 [facility] Comment on above: Performed By: #### H EMOGC ####[facility] (DEFAULT)[address] [place] [address] Mean Cell Hgb 29.9 pg Normal 26.1-33.3 [facility] Comment on above: Performed By: #### H EMOGC ####[facility] (DEFAULT)[address] [place] [address] Mean Cell Hgb Conc 33.9 g/dL Normal 31.9-36.5 [facility] Comment on above: Performed By: #### H EMOGC ####[facility] (DEFAULT)[address] [place] [address] Platelet mean volume (Bld) [Entitic vol] 8.7 fL Normal 8.7-12.3 [facility] Comment on above: Performed By: #### H EMOGC ####[facility] (DEFAULT)[address] [place] [address] Platelets (Bld) [#/Vol] 186 10*3/uL Normal 146-337 [facility] Comment on above: Performed By: #### H [facility] ####[facility] (DEFAULT)[address] [place] [address] RBC (Bld) [#/Vol] 3.75 10*6/uL Low 4.38-5.83 [facility] Comment on above: Performed By: #### H EMO ####[facility] (DEFAULT)[address] [place] [address] RBC Distribution 13.6 % Normal 10.9-14.3 [facility] Comment on above: Performed By: #### H [facility] ####[facility] (DEFAULT)[address] [facility] [place] [address] WBC (Bld) [#/Vol] 5.28 10*3/uL Normal 3.73-10.10 [facility] Comment on above: Performed By: #### H [facility] ####[facility] (DEFAULT)[address] [facility] [place] [address] CHEM 7 (LYTES,BUN,CREA,GLUC) on 04-12-2024 Anion gap [Moles/Vol] 16 mmol/L Normal 7-17 [facility] Comment on above: Performed By: #### Valentino Hernandez CHM7, MGO, IPB ####[facility] (DEFAULT)[address] [facility] [place] [address] Chloride [Moles/Vol] 105 mmol/L Normal 98-108 [facility] Comment on above: Performed By: #### Valentino Hernandez CHM7, MGO, IPB ####[facility] (DEFAULT)[address] [facility] [place] [address] CO2 [Moles/Vol] 21 mmol/L Normal 21-31 [facility] Comment on above: Performed By: #### Valentino Hernandez CHM7, MGO, IPB ####[facility] (DEFAULT)[address] [place] [address] Creatinine [Mass/Vol] 1.03 mg/dL Normal 0.70-1.30 [facility] Comment on above: Performed By: #### TEX Reddy7 MGO, IPB ####[facility] (DEFAULT)[address] [facility] [place] [address] GFR/1.73 sq M.predicted among non-blacks MDRD (S/P/Bld) [Vol rate/Area] 84 mL/min/{1.73_m2} Normal >=60 [facility] Comment on above: Result Comment: Repo rted eGFR is based on the CKD-EPI 2020 equation using creatinine, age, and sex. Performed By: #### GEE Reddy, MGO, IPB ####[facility] (DEFAULT)[address] [place] [address] Glucose [Mass/Vol] 184 mg/dL High 70-99 [facility] Comment on above: Performed By: #### GEE Reddy, MGO, IPB ####[facility] (DEFAULT)[address] [place] [address] Osmolality [Osmolality] 295 mosm/kg Normal 278-305 [facility] Comment on above: Performed By: #### Valentino Hernandez CHMLoulou, MGO, IPB ####[facility] (DEFAULT)[address] [place] [address] Potassium [Moles/Vol] 3.8 mmol/L Normal 3.5-5.0 [facility] Comment on above: Performed By: #### Valentino Hernandez CHMLoulou, MGO, IPB ####[facility] (DEFAULT)[address] [facility] [place] [address] Sodium [Moles/Vol] 138 mmol/L Normal 135-145 [facility] Comment on above: Performed By: #### Valentino Hernandez CHM7, MGO, IPB ####[facility] (DEFAULT)[address] [facility] [place] [address] Urea nitrogen [Mass/Vol] 14 mg/dL Normal 7-25 [facility] Comment on above: Performed By: #### C OSCAR HernandezM7, MGIsabelle, IPB ####[facility] (DEFAULT)[address] [facility] [place] [address] Urea nitrogen/Creatinine [Mass ratio] 14 mg/mg Normal [facility] Comment on above: Performed By: #### C GEE Hernandez, DIPTI, IPB ####[facility] (DEFAULT)[address] [place] [address] FUNGUS CULTUREon 04-12-2024 Bacteria identified Cx Nom (Unsp spec) NO GROWTH DAY 28 OF 28 Normal [facility] Comment on above: Performed By: #### F UN ####[facility] (DEFAULT)[address] [place] [address] GLUCOSE POCon 04-12-2024 Glucose [Mass/Vol] 223 mg/dL High 70 - 99 mg/dL [facility] Interpretation and review of laboratory results Abnormal [facility] POC Sample Type CAPBL [facility] Test performed at ad dress of the patient encounter. [facility] HEMOGLOBIN A1Con 04-12-2024 Glucose [Mass/Vol] 166 mg/dL Normal [facility] Comment on above: Performed By: #### A 1CB ####[facility] (DEFAULT)[address] [place] [address] Hemoglobin A1C HPLC 7.4 % High 4.7-5.6 [facility] Comment on above: Performed By: #### A 1CB ####[facility] (DEFAULT)[address] [place] [address] MAGNESIUMon 04-12-2024 Magnesium [Mass/Vol] 1.5 mg/dL Low 1.6-2.6 [facility] Comment on above: Performed By: #### C A, OSCARM7, MGO, IPB ####[facility] (DEFAULT)[address] [place] [address] PHOSPHATE, INORGANICon 04-12 Phosphorous 4.0 mg/dL Normal 2.2-4.6 [facility] Comment on above: Performed By: #### C A, CHM7, MGO, IPB ####[facility] (DEFAULT)[address] [place] [address] CALCIUMon 04-11-2024 Calcium [Mass/Vol] 8.3 mg/dL Low 8.6 - 10. 5 mg/dL [facility] Calcium [Mass/Vol] 8.3 mg/dL Low 8.6-10.5 [facility] Comment on above: Performed By: #### I PB, CHM7, MGO, CA ####[facility] (DEFAULT)[address] [place] [address] CBC,PLATELETSon 04-11-2024 Erythrocyte distribution width (RBC) [Ratio] 13.7 % 10.9 - 14.3 % [facility] Hematocrit (Bld) [Volume fraction] 29.7 % Low 39.6 - 48.8 % [facility] Hemoglobin (Bld) [Mass/Vol] 10.4 g/dL Low 13.4 - 16.8 g/dL [facility] Interpretation and review of laboratory results Abnormal [facility] MCH (RBC) [Entitic mass] 30.1 pg 26.1 - 33.3 pg [facility] MCHC (RBC) [Mass/Vol] 35.0 g/dL 31.9 - 36.5 g/dL [facility] MCV (RBC) [Entitic vol] 85.8 fL 79.0 - 94.5 fL [facility] Platelet mean volume (Bld) [Entitic vol] 8.8 fL 8.7 - 12.3 fL [facility] Platelets (Bld) [#/Vol] 166 10*3/uL 146 - 337 K/uL [facility] RBC (Bld) [#/Vol] 3.46 10*6/uL Low [facility] WBC (Bld) [#/Vol] 3.82 10*3/uL 3.73 - 10. 10 K/uL [facility] Hematocrit (Bld) [Volume fraction] 29.7 % Low 39.6-48.8 [facility] Comment on above: Performed By: #### H EMOGC ####[facility] (DEFAULT)[address] [place] [address] Hemoglobin (Bld) [Mass/Vol] 10.4 g/dL Low 13.4-16.8 [facility] Comment on above: Performed By: #### H EMOGC ####[facility] (DEFAULT)[address] [place] [address] MCV (RBC) [Entitic vol] 85.8 fL Normal 79.0-94.5 [facility] Comment on above: Performed By: #### H EMOGC ####[facility] (DEFAULT)[address] [place] [address] Mean Cell Hgb 30.1 pg Normal 26.1-33.3 [facility] Comment on above: Performed By: #### H EMOGC ####[facility] (DEFAULT)[address] [place] [address] Mean Cell Hgb Conc 35.0 g/dL Normal 31.9-36.5 [facility] Comment on above: Performed By: #### H EMOGC ####[facility] (DEFAULT)[address] [place] [address] Platelet mean volume (Bld) [Entitic vol] 8.8 fL Normal 8.7-12.3 [facility] Comment on above: Performed By: #### H EMOGC ####[facility] (DEFAULT)[address] [place] [address] Platelets (Bld) [#/Vol] 166 10*3/uL Normal 146-337 [facility] Comment on above: Performed By: #### H [facility] ####[facility] (DEFAULT)[address] [place] [address] RBC (Bld) [#/Vol] 3.46 10*6/uL Low 4.38-5.83 [facility] Comment on above: Performed By: #### H [facility] ####[facility] (DEFAULT)[address] [place] [address] RBC Distribution 13.7 % Normal 10.9-14.3 [facility] Comment on above: Performed By: #### H [facility] ####[facility] (DEFAULT)[address] [place] [address] WBC (Bld) [#/Vol] 3.82 10*3/uL Normal 3.73-10.10 [facility] Comment on above: Performed By: #### H [facility] ####[facility] (DEFAULT)[address] [place] [address] CHEM 7 (LYTES,BUN,CREA,GLUC) on 04-11-2024 Anion gap [Moles/Vol] 15 mmol/L 7 - 17 mmol/L [facility] Chloride [Moles/Vol] 103 mmol/L 98 - 108 mmol/L [facility] CO2 [Moles/Vol] 23 mmol/L 21 - 31 mmol/L [facility] Creatinine [Mass/Vol] 0.82 mg/dL 0.70 - 1.30 mg/dL [facility] eGFR, CKD-EPI, Male - PINF [facility] Comment on above: Reported eGFR is bas ed on the CKD-EPI 2020 equation using creatinine, age, and sex. Glucose [Mass/Vol] 239 mg/dL High 70 - 99 mg/dL [facility] Osmolality Calc [Osmolality] 295 [facility] Potassium [Moles/Vol] 3.9 mmol/L 3.5 - 5.0 mmol/L [facility] Sodium [Moles/Vol] 137 mmol/L 135 - 145 mmol/L [facility] Urea nitrogen [Mass/Vol] 11 mg/dL 7 - 25 mg/dL [facility] Urea nitrogen/Creatinine [Mass ratio] 13 mg/mg [facility] Anion gap [Moles/Vol] 15 mmol/L Normal 7-17 [facility] Comment on above: Performed By: #### I PB, CHM7, MGO, CA ####[facility] (DEFAULT)[address] [place] [address] Chloride [Moles/Vol] 103 mmol/L Normal 98-108 [facility] Comment on above: Performed By: #### I PB, CHM7, MGO, CA ####[facility] (DEFAULT)[address] [place] [address] CO2 [Moles/Vol] 23 mmol/L Normal 21-31 [facility] Comment on above: Performed By: #### I PB, CHM7, MGO, CA ####[facility] (DEFAULT)[address] [place] [address] Creatinine [Mass/Vol] 0.82 mg/dL Normal 0.70-1.30 [facility] Comment on above: Performed By: #### I PB, CHM7, MGO, CA ####[facility] (DEFAULT)[address] [place] [address] eGFR, CKD-EPI, Male > Normal >=60 [facility] Comment on above: Result Comment: Repo rted eGFR is based on the CKD-EPI 2020 equation using creatinine, age, and sex. Performed By: #### I PB, CHM7, MGO, CA ####[facility] (DEFAULT)[address] [place] [address] Glucose [Mass/Vol] 239 mg/dL High 70-99 [facility] Comment on above: Performed By: #### I PB, CHM7, MGO, CA ####[facility] (DEFAULT)[address] [place] [address] Osmolality [Osmolality] 295 mosm/kg Normal 278-305 [facility] Comment on above: Performed By: #### I PB, CHM7, MGO, CA ####[facility] (DEFAULT)[address] [place] [address] Potassium [Moles/Vol] 3.9 mmol/L Normal 3.5-5.0 [facility] Comment on above: Performed By: #### I PB, CHM7, MGO, CA ####[facility] (DEFAULT)[address] [facility] [place] [address] Sodium [Moles/Vol] 137 mmol/L Normal 135-145 [facility] Comment on above: Performed By: #### I PB, CHM7, MGO, CA ####[facility] (DEFAULT)[address] [facility] [place] [address] Urea nitrogen [Mass/Vol] 11 mg/dL Normal 7-25 [facility] Comment on above: Performed By: #### I PB, CHM7, MGO, CA ####[facility] (DEFAULT)[address] [facility] [place] [address] Urea nitrogen/Creatinine [Mass ratio] 13 mg/mg Normal [facility] Comment on above: Performed By: #### I PB, CHM7, MGO, CA ####[facility] (DEFAULT)[address] [place] [address] MAGNESIUMon 04-11-2024 Magnesium [Mass/Vol] 1.7 mg/dL 1.6 - 2.6 mg/dL [facility] Magnesium [Mass/Vol] 1.7 mg/dL Normal 1.6-2.6 [facility] Comment on above: Performed By: #### I PB, CHM7, MGO, CA ####[facility] (DEFAULT)[address] [place] [address] No Panel Informationon 04-11 Interpretation and review of laboratory results Abnormal [facility] Interpretation and review of laboratory results Normal [facility] PHOSPHATE, INORGANICon 04-11 Phosphate [Mass/Vol] 3.7 mg/dL 2.2 - 4.6 mg/dL [facility] Phosphorous 3.7 mg/dL Normal 2.2-4.6 [facility] Comment on above: Performed By: #### I PB, CHM7, MGO, CA ####[facility] (DEFAULT)[address] [place] [address] PTTOrdered By: Alyse Knox on 04-11-2024 aPTT Coag (PPP) [Time] 43.0 s High [facility] Interpretation and review of laboratory results Abnormal [facility] PTTon 04-11-2024 aPTT Coag (Bld) [Time] 43.0 s High 24.0-34.3 [facility] Comment on above: Order Comment: After initiation a PTT should be checked every 6 hours from time of last dose change or, if dose has not changed, 6 hours after last PTT result posted.? The frequent monitoring should occur until PTT in goal range for two consecutive lab draws without dose changes at which time PTTs may be checked no less frequently than every 12 hours.? If dose requires a change, PTT should be monitored at least every 6 hours until titration is no longer indicated, then as directed above.? If PTT above goal range refer to medication administration instructions. Performed By: #### P TT ####[facility] (DEFAULT)[address] [place] [address]35[address] URINE CULTUREon 04-11-2024 Bacteria identified Cx Nom (Unsp spec) No Growth [facility] VANCOMYCIN LEVEL, TROUGH (KS E DRUG LEVEL)on 04-11-2024 Interpretation and review of laboratory results Abnormal [facility] Vancomycin trough [Mass/Vol] 9.1 ug/mL Low Therapeutic Range: 10.0-20.0 mcg/mL mcg/mL [facility] Vancomycin, Trough 9.1 mcg/mL Low Therapeut ic Range: 10.0-20.0 mcg/mL [facility] Comment on above: Order Comment: Pleas e draw level at specified interval PRIOR to next dose. Performed By: #### V ANCTR ####[facility] (DEFAULT)[address] [place] [address] 30882 BODY FLUID CULTURE AND DIREC T SMEARon 04-10-2024 Bacteria identified Cx Nom (Unsp spec) NO GROWTH DAY 2 OF 2 Normal [facility] Comment on above: Performed By: #### B FLD ####[facility] (DEFAULT)[address] [place] [address] 18463 Microscopic observation Gram stain Nom (Unsp spec) Normal [facility] Comment on above: Result Comment: Cyto centrifuge preparationNeutrophils, HeavyMononuclear cells presentRed Blood Cells PresentNo organisms seen Performed By: #### B FLD ####[facility] (DEFAULT)[address] [place] [address] 33514 CALCIUMon 04-10-2024 Calcium [Mass/Vol] 8.4 mg/dL Low 8.6 - 10. 5 mg/dL [facility] Calcium [Mass/Vol] 8.4 mg/dL Low 8.6-10.5 [facility] Comment on above: Performed By: #### C A, MGO, CHM7, IPB ####[facility] (DEFAULT)[address] [place] [address] 87127 CBC,PLATELETSon 04-10-2024 Erythrocyte distribution width (RBC) [Ratio] 14.0 % 10.9 - 14.3 % [facility] Hematocrit (Bld) [Volume fraction] 32.7 % Low 39.6 - 48.8 % [facility] Hemoglobin (Bld) [Mass/Vol] 11.1 g/dL Low 13.4 - 16.8 g/dL [facility] Interpretation and review of laboratory results Abnormal [facility] MCH (RBC) [Entitic mass] 29.6 pg 26.1 - 33.3 pg [facility] MCHC (RBC) [Mass/Vol] 33.9 g/dL 31.9 - 36.5 g/dL [facility] MCV (RBC) [Entitic vol] 87.2 fL 79.0 - 94.5 fL [facility] Platelet mean volume (Bld) [Entitic vol] 9.0 fL 8.7 - 12.3 fL [facility] Platelets (Bld) [#/Vol] 169 10*3/uL 146 - 337 K/uL [facility] RBC (Bld) [#/Vol] 3.75 10*6/uL Low [facility] WBC (Bld) [#/Vol] 4.86 10*3/uL 3.73 - 10. 10 K/uL [facility] Hematocrit (Bld) [Volume fraction] 32.7 % Low 39.6-48.8 [facility] Comment on above: Performed By: #### H [facility] ####[facility] (DEFAULT)[address] [place] [address]51 Hemoglobin (Bld) [Mass/Vol] 11.1 g/dL Low 13.4-16.8 [facility] Comment on above: Performed By: #### H [facility] ####[facility] (DEFAULT)[address] [place] [address] 76942 MCV (RBC) [Entitic vol] 87.2 fL Normal 79.0-94.5 [facility] Comment on above: Performed By: #### H EMO ####[facility] (DEFAULT)[address] [place] [address] 23396 Mean Cell Hgb 29.6 pg Normal 26.1-33.3 [facility] Comment on above: Performed By: #### H EMOGC ####[facility] (DEFAULT)[address] [place] [address] Mean Cell Hgb Conc 33.9 g/dL Normal 31.9-36.5 [facility] Comment on above: Performed By: #### H EMOGC ####[facility] (DEFAULT)[address] [facility] [place] [address] Platelet mean volume (Bld) [Entitic vol] 9.0 fL Normal 8.7-12.3 [facility] Comment on above: Performed By: #### H EMOGC ####[facility] (DEFAULT)[address] [place] [address], [place] [address] Platelets (Bld) [#/Vol] 169 10*3/uL Normal 146-337 [facility] Comment on above: Performed By: #### H EMOGC ####[facility] (DEFAULT)[address] [place] [address] RBC (Bld) [#/Vol] 3.75 10*6/uL Low 4.38-5.83 [facility] Comment on above: Performed By: #### H EMOGC ####[facility] (DEFAULT)[address] [place] [address] RBC Distribution 14.0 % Normal 10.9-14.3 [facility] Comment on above: Performed By: #### H EMOGC ####[facility] (DEFAULT)[address] [place] [address] WBC (Bld) [#/Vol] 4.86 10*3/uL Normal 3.73-10.10 [facility] Comment on above: Performed By: #### H EMOGC ####[facility] (DEFAULT)[address] [place] [address]108 CHEM 7 (LYTES,BUN,CREA,GLUC) on 04-10-2024 Anion gap [Moles/Vol] 13 mmol/L 7 - 17 mmol/L [facility] Chloride [Moles/Vol] 102 mmol/L 98 - 108 mmol/L [facility] CO2 [Moles/Vol] 25 mmol/L 21 - 31 mmol/L [facility] Creatinine [Mass/Vol] 1.11 mg/dL 0.70 - 1.30 mg/dL [facility] eGFR, CKD-EPI, Male 77 - PINF [facility] Comment on above: Reported eGFR is bas ed on the CKD-EPI 2020 equation using creatinine, age, and sex. Glucose [Mass/Vol] 222 mg/dL High 70 - 99 mg/dL [facility] Osmolality Calc [Osmolality] 294 [facility] Potassium [Moles/Vol] 3.9 mmol/L 3.5 - 5.0 mmol/L [facility] Sodium [Moles/Vol] 136 mmol/L 135 - 145 mmol/L [facility] Urea nitrogen [Mass/Vol] 17 mg/dL 7 - 25 mg/dL [facility] Urea nitrogen/Creatinine [Mass ratio] 15 mg/mg [facility] Anion gap [Moles/Vol] 13 mmol/L Normal 7-17 [facility] Comment on above: Performed By: #### DIPTI Reddy CHM7, IPB ####[facility] (DEFAULT)[address] [place] [address] Chloride [Moles/Vol] 102 mmol/L Normal 98-108 [facility] Comment on above: Performed By: #### DIPTI Reddy CHM7, IPB ####[facility] (DEFAULT)[address] [place] [address] CO2 [Moles/Vol] 25 mmol/L Normal 21-31 [facility] Comment on above: Performed By: #### DIPTI Reddy CHM7, IPB ####[facility] (DEFAULT)[address] [place] [address] Creatinine [Mass/Vol] 1.11 mg/dL Normal 0.70-1.30 [facility] Comment on above: Performed By: #### DIPTI Reddy CHM7, IPB ####[facility] (DEFAULT)[address] [facility] [place] [address] GFR/1.73 sq M.predicted among non-blacks MDRD (S/P/Bld) [Vol rate/Area] 77 mL/min/{1.73_m2} Normal >=60 [facility] Comment on above: Result Comment: Repo rted eGFR is based on the CKD-EPI 2020 equation using creatinine, age, and sex. Performed By: #### DIPTI Reddy CHMLoulou, IPB ####[facility] (DEFAULT)[address] [facility] [place] [address] Glucose [Mass/Vol] 222 mg/dL High 70-99 [facility] Comment on above: Performed By: #### DIPTI Reddy CHM7, IPB ####[facility] (DEFAULT)[address] [place] [address] Osmolality [Osmolality] 294 mosm/kg Normal 278-305 [facility] Comment on above: Performed By: #### Valentino Hernandez MGIsabelle CHM7, IPB ####[facility] (DEFAULT)[address] [place] [address] Potassium [Moles/Vol] 3.9 mmol/L Normal 3.5-5.0 [facility] Comment on above: Performed By: #### Valentino Hernandez MGIsabelle CHM7, IPB ####[facility] (DEFAULT)[address] [place] [address] Sodium [Moles/Vol] 136 mmol/L Normal 135-145 [facility] Comment on above: Performed By: #### Valentino Hernandez MGIsabelle CHM7, IPB ####[facility] (DEFAULT)[address] [facility] [place] [address] Urea nitrogen [Mass/Vol] 17 mg/dL Normal 7-25 [facility] Comment on above: Performed By: #### C David, MGO, CHM7, IPB ####[facility] (DEFAULT)[address] [place] [address]7797 Urea nitrogen/Creatinine [Mass ratio] 15 mg/mg Normal [facility] Comment on above: Performed By: #### Valentino Hernandez, MGO, CHM7, IPB ####[facility] (DEFAULT)[address] [place] [address] 94491 MAGNESIUMon 04-10-2024 Magnesium [Mass/Vol] 1.7 mg/dL 1.6 - 2.6 mg/dL [facility] Magnesium [Mass/Vol] 1.7 mg/dL Normal 1.6-2.6 [facility] Comment on above: Performed By: #### Valentino Hernandez, MGO, CHM7, IPB ####[facility] (DEFAULT)[address] [place] [address] 15357 No Panel Informationon 04-10 Interpretation and review of laboratory results Abnormal [facility] Interpretation and review of laboratory results Normal [facility] PHOSPHATE, INORGANICon 04-10 Phosphate [Mass/Vol] 4.0 mg/dL 2.2 - 4.6 mg/dL [facility] Phosphorous 4.0 mg/dL Normal 2.2-4.6 [facility] Comment on above: Performed By: #### Valentino Hernandez, MGO, CHM7, IPB ####[facility] (DEFAULT)[address] [place] [address] 17454 PTTOrdered By: Gold Deaalexandra on on 04-10-2024 aPTT Coag (PPP) [Time] 62.0 s High [facility] Interpretation and review of laboratory results Abnormal [facility] PTTon 04-10-2024 aPTT Coag (Bld) [Time] 62.0 s High 24.0-34.3 [facility] Comment on above: Order Comment: After initiation a PTT should be checked every 6 hours from time of last dose change or, if dose has not changed, 6 hours after last PTT result posted.? The frequent monitoring should occur until PTT in goal range for two consecutive lab draws without dose changes at which time PTTs may be checked no less frequently than every 12 hours.? If dose requires a change, PTT should be monitored at least every 6 hours until titration is no longer indicated, then as directed above.? If PTT above goal range refer to medication administration instructions. Performed By: #### P TT ####[facility] (DEFAULT)[address] [place] [address] 96821 aPTT Coag (PPP) [Time] 37.0 s High [facility] Interpretation and review of laboratory results Abnormal [facility] aPTT Coag (Bld) [Time] 37.0 s High 24.0-34.3 [facility] Comment on above: Order Comment: Draw prior to initiation of intravenous Heparin. Performed By: #### P TT ####[facility] (DEFAULT)[address] [place] [address] 59331 URINE CULTUREon 04-10-2024 Bacteria identified Cx Nom (U) No Growth Normal [facility] Comment on above: Order Comment: For i ndwelling catheters, specimen collection is acceptable on catheter day 1 and 2 only. Meyer top vacutainer. Urine must be to the fill line to process (4mls). If minimum volume, send urine in a yellow top vacutainer tube. Performed By: #### U R ####[facility] (DEFAULT)[address] [place] [address]1510 BACTERIAL CULTURE AND DIRECT SMEAR, LESION, TISSUE, DEVICEon 04-09-2024 Ampicillin [Susceptibility] <= Invalid Interpretation Code [facility] Comment on above: Performed By: #### G EN ####[facility] (DEFAULT)[address] [place] [address] Bacteria identified Cx Nom (Unsp spec) Normal [facility] Comment on above: Result Comment: Grow [id number] Growth Streptococcus viridans groupSusceptibilities not routinely performed.2595Heavy Growth Pseudomonas putida groupRefer to specimen [id number] on 04/09/24 for susceptibilities.189Heavy Growth Enterococcus faecalisRefer to specimen [id number] on 04/09/24 for susceptibilities.1113Light Growth Mucor speciesSusceptibility testing performed by the Fungal Testing Laboratory at the [facility], [place], [place]. See separate report available in electronic medical record under Labs, Miscellaneous Sendout.Identification was performed on the MALDI-TOF mass spectrometer Catarizmyper. This test was developed by The Clinical Microbiology Laboratory at The [facility]. It has not been cleared or approved by the FDA. The laboratory is regulated under CLIA as qualified to perform high-complexity testing. This test is used for clinical purposes. It should not be regarded as investigational or for research.9Light Growth Staphylococcus epidermidisSusceptibilities not routinely performed. Performed By: #### G EN ####[facility] (DEFAULT)[address] [place] [address] 27240 DAPTOmycin [Susceptibility] 2 ug/mL Invalid Interpretation Code [facility] Comment on above: Performed By: #### G EN ####[facility] (DEFAULT)[address] [place] [address] 35367 Microscopic observation Gram stain Nom (Unsp spec) Normal [facility] Comment on above: Result Comment: Neut rophils, NoneGram Positive CocciGram Negative Bacilli Performed By: #### G EN ####[facility] (DEFAULT)[address] [place] [address] Penicillin [Susceptibility] 4 ug/mL Invalid Interpretation Code [facility] Comment on above: Performed By: #### G EN ####[facility] (DEFAULT)[address] [place] [address] Vancomycin [Susceptibility] 1 ug/mL Invalid Interpretation Code [facility] Comment on above: Performed By: #### G EN ####[facility] (DEFAULT)[address] [place] [address] 59550 CBC AND ELECTRONIC DIFFon Basophils (Bld) [#/Vol] K/uL 0.00 - 0.09 K/uL [facility] Basophils/100 WBC (Bld) 0.3 % [facility] Differential cell count method Nom (Bld) Electronic Differential [facility] Eosinophils (Bld) [#/Vol] 0.16 10*3/uL 0.00 - 0.48 K/uL [facility] Eosinophils/100 WBC (Bld) 1.7 % [facility] Erythrocyte distribution width (RBC) [Ratio] 13.9 % 10.9 - 14.3 % [facility] Hematocrit (Bld) [Volume fraction] 38.3 % Low 39.6 - 48.8 % [facility] Hemoglobin (Bld) [Mass/Vol] 13.3 g/dL Low 13.4 - 16.8 g/dL [facility] Immature granulocytes (Bld) [#/Vol] 0.04 10*3/uL NINF - 0.07 K/uL [facility] Immature granulocytes/100 WBC (Bld) 0.4 % [facility] Interpretation and review of laboratory results Abnormal [facility] Lymphocytes (Bld) [#/Vol] 1.57 10*3/uL 0.83 - 3.57 K/uL [facility] Lymphocytes/100 WBC (Bld) 17.1 % [facility] MCH (RBC) [Entitic mass] 30.0 pg 26.1 - 33.3 pg [facility] MCHC (RBC) [Mass/Vol] 34.7 g/dL 31.9 - 36.5 g/dL [facility] MCV (RBC) [Entitic vol] 86.5 fL 79.0 - 94.5 fL [facility] Monocytes (Bld) [#/Vol] 0.76 10*3/uL 0.24 - 0.93 K/uL [facility] Monocytes/100 WBC (Bld) 8.3 % [facility] Neutrophils (Bld) [#/Vol] 6.62 10*3/uL High 1.57 - 6.19 K/uL [facility] Nucleated RBC/100 WBC (Bld) [Ratio] 0.0 % NINF [facility] Platelet mean volume (Bld) [Entitic vol] 8.8 fL 8.7 - 12.3 fL [facility] Platelets (Bld) [#/Vol] 212 10*3/uL 146 - 337 K/uL [facility] RBC (Bld) [#/Vol] 4.43 10*6/uL [facility] Segmented neutrophils/100 WBC (Bld) 72.2 % [facility] WBC (Bld) [#/Vol] 9.18 10*3/uL 3.73 - 10. 10 K/uL [facility] Abs Baso Auto < Normal 0.00-0.09 [facility] Comment on above: Performed By: #### L [id number] ####[facility] (DEFAULT)[address] [place] [address] Basophils/100 WBC (Bld) 0.3 % Normal [facility] Comment on above: Performed By: #### L [id number] ####[facility] (DEFAULT)[address] [place] [address] DIFF STATUS Electronic Differential Normal [facility] Comment on above: Performed By: #### L [id number] ####[facility] (DEFAULT)[address] [place] [address] Eosinophils (Bld) [#/Vol] 0.16 10*3/uL Normal 0.00-0.48 [facility] Comment on above: Performed By: #### L [id number] ####[facility] (DEFAULT)[address] [place] [address] Eosinophils/100 WBC (Bld) 1.7 % Normal [facility] Comment on above: Performed By: #### L [id number] ####[facility] (DEFAULT)[address] [facility] [place] [address] Hematocrit (Bld) [Volume fraction] 38.3 % Low 39.6-48.8 [facility] Comment on above: Performed By: #### L [id number] ####[facility] (DEFAULT)[address] [place] [address] Hemoglobin (Bld) [Mass/Vol] 13.3 g/dL Low 13.4-16.8 [facility] Comment on above: Performed By: #### L AB980 ####[facility] (DEFAULT)[address] [facility] [place] [address] Immature Grans % 0.4 % Normal [facility] Comment on above: Performed By: #### L [id number] ####[facility] (DEFAULT)[address] [facility] [place] [address] Immature Grans Absolute 0.04 K/uL Normal <=0.07 [facility] Comment on above: Performed By: #### L [id number] ####[facility] (DEFAULT)[address] [place] [address] Lymphocytes (Bld) [#/Vol] 1.57 10*3/uL Normal 0.83-3.57 [facility] Comment on above: Performed By: #### L [id number] ####[facility] (DEFAULT)[address] [place] [address] Lymphocytes/100 WBC (Bld) 17.1 % Normal [facility] Comment on above: Performed By: #### L [id number] ####[facility] (DEFAULT)[address] [facility] [place] [address] MCV (RBC) [Entitic vol] 86.5 fL Normal 79.0-94.5 [facility] Comment on above: Performed By: #### L [id number] ####[facility] (DEFAULT)[address] [facility] [place] [address] Mean Cell Hgb 30.0 pg Normal 26.1-33.3 [facility] Comment on above: Performed By: #### L [id number] ####[facility] (DEFAULT)[address] [place] [address] Mean Cell Hgb Conc 34.7 g/dL Normal 31.9-36.5 [facility] Comment on above: Performed By: #### L [id number] ####[facility] (DEFAULT)[address] [facility] [place] [address] Monocytes (Bld) [#/Vol] 0.76 10*3/uL Normal 0.24-0.93 [facility] Comment on above: Performed By: #### L [id number] ####[facility] (DEFAULT)[address] [facility] [place] [address] Monocytes/100 WBC (Bld) 8.3 % Normal [facility] Comment on above: Performed By: #### L [id number] ####[facility] (DEFAULT)[address] [facility] [place] [address] Nucleated RBC 0.0 /100 WBC Normal <=0.2 [facility] Comment on above: Performed By: #### L [id number] ####[facility] (DEFAULT)[address] [place] [address] Platelet mean volume (Bld) [Entitic vol] 8.8 fL Normal 8.7-12.3 [facility] Comment on above: Performed By: #### L [id number] ####[facility] (DEFAULT)[address] [place] [address] Platelets (Bld) [#/Vol] 212 10*3/uL Normal 146-337 [facility] Comment on above: Performed By: #### L [id number] ####[facility] (DEFAULT)[address] [place] [address] RBC (Bld) [#/Vol] 4.43 10*6/uL Normal 4.38-5.83 [facility] Comment on above: Performed By: #### L [id number] ####[facility] (DEFAULT)[address] [place] [address] RBC Distribution 13.9 % Normal 10.9-14.3 [facility] Comment on above: Performed By: #### L [id number] ####[facility] (DEFAULT)[address] [place] [address] Segs + Bands Auto 72.2 % Normal [facility] Comment on above: Performed By: #### L [id number] ####[facility] (DEFAULT)[address] [place] [address] Segs + Bands,Absolute Auto 6.62 K/uL High 1.57-6.19 [facility] Comment on above: Performed By: #### L [id number] ####[facility] (DEFAULT)[address] [place] [address] WBC (Bld) [#/Vol] 9.18 10*3/uL Normal 3.73-10.10 [facility] Comment on above: Performed By: #### L [id number] ####[facility] (DEFAULT)[address] [place] [address] CBC,PLATELETSon 04-09-2024 Erythrocyte distribution width (RBC) [Ratio] 13.7 % 10.9 - 14.3 % [facility] Hematocrit (Bld) [Volume fraction] 31.5 % Low 39.6 - 48.8 % [facility] Hemoglobin (Bld) [Mass/Vol] 10.7 g/dL Low 13.4 - 16.8 g/dL [facility] Interpretation and review of laboratory results Abnormal [facility] MCH (RBC) [Entitic mass] 29.3 pg 26.1 - 33.3 pg [facility] MCHC (RBC) [Mass/Vol] 34.0 g/dL 31.9 - 36.5 g/dL [facility] MCV (RBC) [Entitic vol] 86.3 fL 79.0 - 94.5 fL [facility] Platelet mean volume (Bld) [Entitic vol] 8.9 fL 8.7 - 12.3 fL [facility] Platelets (Bld) [#/Vol] 156 10*3/uL 146 - 337 K/uL [facility] RBC (Bld) [#/Vol] 3.65 10*6/uL Low [facility] WBC (Bld) [#/Vol] 6.08 10*3/uL 3.73 - 10. 10 K/uL [facility] Hematocrit (Bld) [Volume fraction] 31.5 % Low 39.6-48.8 [facility] Comment on above: Performed By: #### H EMOGC ####[facility] (DEFAULT)[address] [place] [address] Hemoglobin (Bld) [Mass/Vol] 10.7 g/dL Low 13.4-16.8 [facility] Comment on above: Performed By: #### H EMOGC ####[facility] (DEFAULT)[address] [place] [address] MCV (RBC) [Entitic vol] 86.3 fL Normal 79.0-94.5 [facility] Comment on above: Performed By: #### H EMOGC ####[facility] (DEFAULT)[address] [place] [address] Mean Cell Hgb 29.3 pg Normal 26.1-33.3 [facility] Comment on above: Performed By: #### H EMOGC ####[facility] (DEFAULT)[address] [place] [address] Mean Cell Hgb Conc 34.0 g/dL Normal 31.9-36.5 [facility] Comment on above: Performed By: #### H EMOGC ####[facility] (DEFAULT)[address] [place] [address] Platelet mean volume (Bld) [Entitic vol] 8.9 fL Normal 8.7-12.3 [facility] Comment on above: Performed By: #### H [facility] ####[facility] (DEFAULT)[address] [place] [address] Platelets (Bld) [#/Vol] 156 10*3/uL Normal 146-337 [facility] Comment on above: Performed By: #### H [facility] ####[facility] (DEFAULT)[address] [place] [address] RBC (Bld) [#/Vol] 3.65 10*6/uL Low 4.38-5.83 [facility] Comment on above: Performed By: #### H [facility] ####[facility] (DEFAULT)[address] [place] [address] RBC Distribution 13.7 % Normal 10.9-14.3 [facility] Comment on above: Performed By: #### H [facility] ####[facility] (DEFAULT)[address] [place] [address] WBC (Bld) [#/Vol] 6.08 10*3/uL Normal 3.73-10.10 [facility] Comment on above: Performed By: #### H [facility] ####[facility] (DEFAULT)[address] [place] [address] [facility] 7 - EDon 04-09-2024 Anion gap [Moles/Vol] 13 mmol/L 7 - 17 mmol/L [facility] Chloride [Moles/Vol] 102 mmol/L 98 - 108 mmol/L [facility] CO2 [Moles/Vol] 23 mmol/L 21 - 31 mmol/L [facility] Creatinine [Mass/Vol] 0.92 mg/dL 0.70 - 1.30 mg/dL [facility] eGFR, CKD-EPI, Male - PINF [facility] Comment on above: Reported eGFR is bas ed on the CKD-EPI 2020 equation using creatinine, age, and sex. Glucose [Mass/Vol] 182 mg/dL High 70 - 99 mg/dL [facility] Interpretation and review of laboratory results Abnormal [facility] Osmolality Calc [Osmolality] 287 [facility] Potassium [Moles/Vol] 4.1 mmol/L 3.5 - 5.0 mmol/L [facility] Sodium [Moles/Vol] 134 mmol/L Low 135 - 145 mmol/L [facility] Urea nitrogen [Mass/Vol] 14 mg/dL 7 - 25 mg/dL [facility] Urea nitrogen/Creatinine [Mass ratio] 15 mg/mg [facility] Anion gap [Moles/Vol] 13 mmol/L Normal 7-17 [facility] Comment on above: Performed By: #### C 7ED ####[facility] (DEFAULT)[address] [place] [address] Chloride [Moles/Vol] 102 mmol/L Normal 98-108 [facility] Comment on above: Performed By: #### C 7ED ####[facility] (DEFAULT)[address] [place] [address] CO2 [Moles/Vol] 23 mmol/L Normal 21-31 [facility] Comment on above: Performed By: #### C 7ED ####[facility] (DEFAULT)[address] [place] [address] Creatinine [Mass/Vol] 0.92 mg/dL Normal 0.70-1.30 [facility] Comment on above: Performed By: #### C 7ED ####[facility] (DEFAULT)[address] [place] [address] eGFR, CKD-EPI, Male > Normal >=60 [facility] Comment on above: Result Comment: Repo rted eGFR is based on the CKD-EPI 2020 equation using creatinine, age, and sex. Performed By: #### C 7ED ####[facility] (DEFAULT)[address] [place] [address] Glucose [Mass/Vol] 182 mg/dL High 70-99 [facility] Comment on above: Performed By: #### C 7ED ####[facility] (DEFAULT)[address] [place] [address] Osmolality [Osmolality] 287 mosm/kg Normal 278-305 [facility] Comment on above: Performed By: #### C 7ED ####[facility] (DEFAULT)[address] [place] [address] Potassium [Moles/Vol] 4.1 mmol/L Normal 3.5-5.0 [facility] Comment on above: Performed By: #### C 7ED ####[facility] (DEFAULT)[address] [place] [address] Sodium [Moles/Vol] 134 mmol/L Low 135-145 [facility] Comment on above: Performed By: #### C 7ED ####[facility] (DEFAULT)[address] [place] [address] Urea nitrogen [Mass/Vol] 14 mg/dL Normal 7-25 [facility] Comment on above: Performed By: #### C 7ED ####[facility] (DEFAULT)[address] [place] [address] Urea nitrogen/Creatinine [Mass ratio] 15 mg/mg Normal [facility] Comment on above: Performed By: #### C 7ED ####[facility] (DEFAULT)[address] [place] [address] CT ABDOMEN/PELVIS WITH CONTR Louise 04-09-2024 CT ABDOMEN/PELVIS WITH CONTRAST Normal [facility] CT Abdomen and Pelvis W cont rast Seda 04-09-2024 IMPRESSION: 1. Incidental new pulmonary embolus in a right lower lobe segmental artery. 2. Persistent bilateral inguinal collections, significantly increased in size on the left. These collections now demonstrate a thick peripheral wall which may reflect superimposed infection given the clinical context. Right inguinal drain in place. A drain in the left thyroid does not significantly traverse the left inguinal collection. I, Yvonne Merino MD have discussed the critical finding/s of pulmonary embolus and bilateral inguinal collections with JC YANES on 04/09/2024 5:11 PM. OLOGY EXAM: CT ABDOMEN/PEL VIS WITH CONTRAST, 04/09/2024 16:21 PM COMPARISON: Prior exams including CT pelvis March 18, [address] abdomen/pelvis March 16, 2024 CLINICAL INDICATIONS: right groin swelling, fever, s/p B/L inguinofemoral lymphadenectomy on 03/05/[address] AP TO KNEES; TECHNIQUE: CT scanning was performed of the abdomen and pelvis following the administration of intravenous contrast. PROTOCOL: Standard. CONTRAST: iohexol (OMNIPAQUE) 350 MG/ML injection 1-171 mL; Route of Administration: Intravenous; Dose: 110 mL. FINDINGS: Lung Bases: Minimal curvilinear bibasilar atelectasis. Multivessel coronary artery calcifications. Filling defect consistent with pulmonary embolus in a right lower lobe subsegmental artery. Liver: Normal. Gallbladder: Normal. Bile Ducts: Normal in caliber. Spleen: Normal. Pancreas: Normal. Adrenals: Normal. Right Kidney: Normal. No hydronephrosis. Left Kidney: Normal. No hydronephrosis. Gastrointestinal: Normal bowel caliber and wall thickness. Colonic diverticula. Peritoneum/retroperitoneum: No ascites. Unchanged partially calcified nodules in the pelvis (axial image 156), possible sequela of prior fat necrosis or epiploic appendagitis. Lymph nodes: No enlarged or morphologically abnormal lymph nodes. Vasculature: The abdominal aorta is normal in course and caliber. Patent celiac and superior mesenteric arteries. Patent portal, splenic, and superior mesenteric veins. Bladder: Normal. Pelvic Organs: No appreciable abnormality of the prostate. Mild subcutaneous soft tissue edema in the scrotum. Body Wall: Postoperative changes from prior bilateral inguinal lymph node dissection with persistent thick-walled collection in the right inguinal region measuring up to 5.4 x 2.6 cm (axial image 188), presumably 4.2 x 3.9 cm. There is a drain traversing this region. Increased size of a thick-walled left inguinal collection measuring up to 11.0 x 5.2 x 14.7 cm (axial image 192 and sagittal image 134), previously 5.3 x 3.4 cm in axial dimensions. A portion of this collections extends inferiorly and laterally over the anteromedial left thigh. There is a drain in the anterior left thigh soft tissues which does not traverse the collection. Some portions of these bilateral collections have minimally greater than simple fluid attenuation. No associated gas or subcutaneous emphysema. Bones: Multilevel spinal degenerative changes.. No aggressive lesion. RADIOLOGY Yvonne Merino MD - 04/09/2024 EXAM: CT ABDOMEN/PELVIS WITH CONTRAST, 04/09/2024 16:21 PM COMPARISON: Prior exams including CT pelvis March 18, [address] abdomen/pelvis March 16, 2024 CLINICAL INDICATIONS: right groin swelling, fever, s/p B/L inguinofemoral lymphadenectomy on 03/05/[address] AP TO KNEES; TECHNIQUE: CT scanning was performed of the abdomen and pelvis following the administration of intravenous contrast. PROTOCOL: Standard. CONTRAST: iohexol (OMNIPAQUE) 350 MG/ML injection 1-171 mL; Route of Administration: Intravenous; Dose: 110 mL. FINDINGS: Lung Bases: Minimal curvilinear bibasilar atelectasis. Multivessel coronary artery calcifications. Filling defect consistent with pulmonary embolus in a right lower lobe subsegmental artery. Liver: Normal. Gallbladder: Normal. Bile Ducts: Normal in caliber. Spleen: Normal. Pancreas: Normal. Adrenals: Normal. Right Kidney: Normal. No hydronephrosis. Left Kidney: Normal. No hydronephrosis. Gastrointestinal: Normal bowel caliber and wall thickness. Colonic diverticula. Peritoneum/retroperitoneum: No ascites. Unchanged partially calcified nodules in the pelvis (axial image 156), possible sequela of prior fat necrosis or epiploic appendagitis. Lymph nodes: No enlarged or morphologically abnormal lymph nodes. Vasculature: The abdominal aorta is normal in course and caliber. Patent celiac and superior mesenteric arteries. Patent portal, splenic, and superior mesenteric veins. Bladder: Normal. Pelvic Organs: No appreciable abnormality of the prostate. Mild subcutaneous soft tissue edema in the scrotum. Body Wall: Postoperative changes from prior bilateral inguinal lymph node dissection with persistent thick-walled collection in the right inguinal region measuring up to 5.4 x 2.6 cm (axial image 188), presumably 4.2 x 3.9 cm. There is a drain traversing this region. Increased size of a thick-walled left inguinal collection measuring up to 11.0 x 5.2 x 14.7 cm (axial image 192 and sagittal image 134), previously 5.3 x 3.4 cm in axial dimensions. A portion of this collections extends inferiorly and laterally over the anteromedial left thigh. There is a drain in the anterior left thigh soft tissues which does not traverse the collection. Some portions of these bilateral collections have minimally greater than simple fluid attenuation. No associated gas or subcutaneous emphysema. Bones: Multilevel spinal degenerative changes.. No aggressive lesion. IMPRESSION IMPRESSION: 1. Incidental new pulmonary embolus in a right lower lobe segmental artery. 2. Persistent bilateral inguinal collections, significantly increased in size on the left. These collections now demonstrate a thick peripheral wall which may reflect superimposed infection given the clinical context. Right inguinal drain in place. A drain in the left thyroid does not significantly traverse the left inguinal collection. I, Yvonne Merino MD have discussed the critical finding/s of pulmonary embolus and bilateral inguinal collections with JC YANES on 04/09/2024 5:11 PM. [facility] Radiology Study observation (narrative) [facility] CT Abdomen and Pelvis W cont rast IVOrdered By: Yvonne Merino on 04-09-2024 [facility] Work Phone: No Panel Informationon 04-09 [facility] PROTIME-INRon 04-09-2024 INR Coag (Bld) [Relative time] 2.5 {INR} High 0.9 - 1.1 [facility] Interpretation and review of laboratory results Abnormal [facility] PT Coag (PPP) [Time] 27.2 s High [facility] INR Coag (PPP) [Relative time] 2.5 {INR} High 0.9-1.1 [facility] Comment on above: Performed By: #### P TI ####[facility] (DEFAULT)[address] [place] [address] PT Coag (PPP) [Time] 27.2 s High 11.9-14.2 [facility] Comment on above: Performed By: #### P TI ####[facility] (DEFAULT)[address] [place] [address] PTTon 04-09-2024 aPTT Coag (PPP) [Time] 37.5 s High [facility] Interpretation and review of laboratory results Abnormal [facility] aPTT Coag (Bld) [Time] 37.5 s High 24.0-34.3 [facility] Comment on above: Order Comment: Draw prior to initiation of intravenous Heparin. Performed By: #### P TT ####[facility] (DEFAULT)[address] [place] [address] BACTERIAL CULTURE AND DIRECT SMEAR, LESION, TISSUE, DEVICEon 03-20-2024 Bacteria identified Cx Nom (Unsp spec) NO GROWTH DAY 2 OF 2 Normal [facility] Comment on above: Performed By: #### G EN ####[facility] (DEFAULT)[address] [place] [address] Microscopic observation Gram stain Nom (Unsp spec) Normal [facility] Comment on above: Result Comment: Neut rophils, ModerateNo organisms seen Performed By: #### G EN ####[facility] (DEFAULT)[address] [place] [address] CALCIUMon 03-20-2024 Calcium [Mass/Vol] 8.3 mg/dL Low 8.6 - 10. 5 mg/dL [facility] Calcium [Mass/Vol] 8.3 mg/dL Low 8.6-10.5 [facility] Comment on above: Performed By: #### C A, CHM7, IPB, MGO ####[facility] (DEFAULT)[address] [place] [address] CBC,PLATELETSon 03-20-2024 Erythrocyte distribution width (RBC) [Ratio] 13.3 % 10.9 - 14.3 % [facility] Erythrocyte distribution width (RBC) [Ratio] 13.2 % 10.9 - 14.3 % [facility] Hematocrit (Bld) [Volume fraction] 32.7 % Low 39.6 - 48.8 % [facility] Hematocrit (Bld) [Volume fraction] 31.3 % Low 39.6 - 48.8 % [facility] MCH (RBC) [Entitic mass] 29.4 pg 26.1 - 33.3 pg [facility] MCH (RBC) [Entitic mass] 30.2 pg 26.1 - 33.3 pg [facility] MCHC (RBC) [Mass/Vol] 33.0 g/dL 31.9 - 36.5 g/dL [facility] MCHC (RBC) [Mass/Vol] 34.5 g/dL 31.9 - 36.5 g/dL [facility] MCV (RBC) [Entitic vol] 89.1 fL 79.0 - 94.5 fL [facility] MCV (RBC) [Entitic vol] 87.4 fL 79.0 - 94.5 fL [facility] Platelet mean volume (Bld) [Entitic vol] 9.5 fL 8.7 - 12.3 fL [facility] Platelet mean volume (Bld) [Entitic vol] 8.8 fL 8.7 - 12.3 fL [facility] Platelets (Bld) [#/Vol] 219 10*3/uL 146 - 337 K/uL [facility] Platelets (Bld) [#/Vol] 194 10*3/uL 146 - 337 K/uL [facility] RBC (Bld) [#/Vol] 3.67 10*6/uL Low [facility] RBC (Bld) [#/Vol] 3.58 10*6/uL Low [facility] WBC (Bld) [#/Vol] 5.76 10*3/uL 3.73 - 10. 10 K/uL [facility] WBC (Bld) [#/Vol] 5.33 10*3/uL 3.73 - 10. 10 K/uL [facility] Hematocrit (Bld) [Volume fraction] 31.3 % Low 39.6-48.8 [facility] Comment on above: Performed By: #### H EMOGC ####[facility] (DEFAULT)[address] [facility] [place] [address] Hemoglobin (Bld) [Mass/Vol] 10.8 g/dL Low 13.4-16.8 [facility] Comment on above: Performed By: #### H EMOGC ####[facility] (DEFAULT)[address] [place] [address] MCV (RBC) [Entitic vol] 87.4 fL Normal 79.0-94.5 [facility] Comment on above: Performed By: #### H EMOGC ####[facility] (DEFAULT)[address] [place] [address] Mean Cell Hgb 30.2 pg Normal 26.1-33.3 [facility] Comment on above: Performed By: #### H EMOGC ####[facility] (DEFAULT)[address] [place] [address] Mean Cell Hgb Conc 34.5 g/dL Normal 31.9-36.5 [facility] Comment on above: Performed By: #### H EMOGC ####[facility] (DEFAULT)[address] [place] [address] Platelet mean volume (Bld) [Entitic vol] 8.8 fL Normal 8.7-12.3 [facility] Comment on above: Performed By: #### H EMOGC ####[facility] (DEFAULT)[address] [place] [address] Platelets (Bld) [#/Vol] 194 10*3/uL Normal 146-337 [facility] Comment on above: Performed By: #### H EMOGC ####[facility] (DEFAULT)[address] [place] [address] RBC (Bld) [#/Vol] 3.58 10*6/uL Low 4.38-5.83 [facility] Comment on above: Performed By: #### H [facility] ####[facility] (DEFAULT)[address] [place] [address] RBC Distribution 13.2 % Normal 10.9-14.3 [facility] Comment on above: Performed By: #### H [facility] ####[facility] (DEFAULT)[address] [place] [address] WBC (Bld) [#/Vol] 5.33 10*3/uL Normal 3.73-10.10 [facility] Comment on above: Performed By: #### H [facility] ####[facility] (DEFAULT)[address] [place] [address] CHEM 7 (LYTES,BUN,CREA,GLUC) on 03-20-2024 Anion gap [Moles/Vol] 13 mmol/L 7 - 17 mmol/L [facility] Chloride [Moles/Vol] 103 mmol/L 98 - 108 mmol/L [facility] CO2 [Moles/Vol] 22 mmol/L 21 - 31 mmol/L [facility] Creatinine [Mass/Vol] 0.92 mg/dL 0.70 - 1.30 mg/dL [facility] eGFR, CKD-EPI, Male - PINF [facility] Comment on above: Reported eGFR is bas ed on the CKD-EPI 2020 equation using creatinine, age, and sex. Glucose [Mass/Vol] 232 mg/dL High 70 - 99 mg/dL [facility] Osmolality Calc [Osmolality] 291 [facility] Potassium [Moles/Vol] 4.0 mmol/L 3.5 - 5.0 mmol/L [facility] Sodium [Moles/Vol] 134 mmol/L Low 135 - 145 mmol/L [facility] Urea nitrogen [Mass/Vol] 15 mg/dL 7 - 25 mg/dL [facility] Urea nitrogen/Creatinine [Mass ratio] 16 mg/mg [facility] Anion gap [Moles/Vol] 13 mmol/L Normal 7-17 [facility] Comment on above: Performed By: #### C A, CHM7, IPB, MGO ####[facility] (DEFAULT)[address] [facility] [place] [address] Chloride [Moles/Vol] 103 mmol/L Normal 98-108 [facility] Comment on above: Performed By: #### C A, CHM7, IPB, MGO ####[facility] (DEFAULT)[address] [place] [address] CO2 [Moles/Vol] 22 mmol/L Normal 21-31 [facility] Comment on above: Performed By: #### C A, CHM7, IPB, MGO ####[facility] (DEFAULT)[address] [place] [address] Creatinine [Mass/Vol] 0.92 mg/dL Normal 0.70-1.30 [facility] Comment on above: Performed By: #### C David, CHM7, IPB, MGO ####[facility] (DEFAULT)[address] [place] [address] eGFR, CKD-EPI, Male > Normal >=60 [facility] Comment on above: Result Comment: Repo rted eGFR is based on the CKD-EPI 2020 equation using creatinine, age, and sex. Performed By: #### C A, CHM7, IPB, MGO ####[facility] (DEFAULT)[address] [place] [address] Glucose [Mass/Vol] 232 mg/dL High 70-99 [facility] Comment on above: Performed By: #### C A, CHM7, IPB, MGO ####[facility] (DEFAULT)[address] [place] [address] Osmolality [Osmolality] 291 mosm/kg Normal 278-305 [facility] Comment on above: Performed By: #### C David, CHM7, IPB, MGO ####[facility] (DEFAULT)[address] [place] [address] Potassium [Moles/Vol] 4.0 mmol/L Normal 3.5-5.0 [facility] Comment on above: Performed By: #### C David, CHM7, IPB, MGO ####[facility] (DEFAULT)[address] [place] [address] Sodium [Moles/Vol] 134 mmol/L Low 135-145 [facility] Comment on above: Performed By: #### Valentino Hernandez, CHM7, IPB, MGO ####[facility] (DEFAULT)[address] [place] [address] Urea nitrogen [Mass/Vol] 15 mg/dL Normal 7-25 [facility] Comment on above: Performed By: #### C David, CHM7, IPB, MGO ####[facility] (DEFAULT)[address] [place] [address] Urea nitrogen/Creatinine [Mass ratio] 16 mg/mg Normal [facility] Comment on above: Performed By: #### Valentino Hernandez, CHM7, IPB, MGO ####[facility] (DEFAULT)[address] [place] [address] DRAINAGE SOFT TISSUE PERCUTA NEOUS W/ IMAGE GUIDANCEon 03-20-2024 DRAINAGE SOFT TISSUE PERCUTANEOUS W/ IMAGE GUIDANCE Normal [facility] IMPRESSION: Successful placement of drain into a right groin fluid collection. A total of 20 mL is of yellow-tinged clear fluid was aspirated from the collection and some sent for culture. Continue suction drainage. Kisha Quarles DO was in the room and participated during all cannon portions of this procedure. I personally viewed and interpreted these images and I have reviewed and approved this report. OLOGY EXAM: IR DRAINAGE SO FT TISSUE PERCUTANEOUS W/ IMAGE GUIDANCE , 03/20/2024 14:57 PM COMPARISON: CT abdomen pelvis dated 03/16/2024 CLINICAL INDICATIONS: Fluid collection noted in the right groin with associated pain OPERATORS: Kisha Quarles DO (attending) Fausto Sheets M.D. (resident) PROCEDURE/TECHNIQUE: Consent: Written, informed consent was obtained after explaining the procedure to the patient, including benefits and risks, and answering the patient's questions. Moderate Sedation: I performed Moderate Sedation which included the presence of a nurse that assisted in monitoring the patients level of consciousness and physiological status. After administration of Fentanyl and Versed, I spent 22 minutes of continuous [id number] time with the patient. Position: The patient was placed on the table in supine position, and ultrasonic images obtained through the region of interest in the right groin were obtained which demonstrated a wide and shallow multiseptated fluid collection overlying the femoral vessels. Preparation: Time out was performed. The patient was then prepped and draped in sterile fashion. Local anesthesia was provided using 2% Lidocaine. Procedure/Findings: An 5Fx7cm Cook Yueh trocar needle was advanced using CT fluoroscopic guidance into the collection. Approximately 20 mL of yellow-tinged clear fluid was aspirated from the lesion and sent to the laboratory for culture. A guidewire was then passed through the needle, and a series of dilators were exchanged over the wire. A 8 Guatemalan mermaid drain was then placed over the wire, and additional images were obtained to confirm positioning of the catheter within the collection. The catheter was sutured to the skin with a single stitch, and connected to a suction bulb. Post-Procedure: Post-procedure images demonstrate the pigtail of the catheter within the collection. The patient tolerated the procedure well, with no immediate complications. RADIOLOGY Kisha Quarles DO - 03/20/2024 EXAM: IR DRAINAGE SOFT TISSUE PERCUTANEOUS W/ IMAGE GUIDANCE , 03/20/2024 14:57 PM COMPARISON: CT abdomen pelvis dated 03/16/2024 CLINICAL INDICATIONS: Fluid collection noted in the right groin with associated pain OPERATORS: Kisha Quarles DO (attending) Fausto Sheets M.D. (resident) PROCEDURE/TECHNIQUE: Consent: Written, informed consent was obtained after explaining the procedure to the patient, including benefits and risks, and answering the patient's questions. Moderate Sedation: I performed Moderate Sedation which included the presence of a nurse that assisted in monitoring the patients level of consciousness and physiological status. After administration of Fentanyl and Versed, I spent 22 minutes of continuous [id number] time with the patient. Position: The patient was placed on the table in supine position, and ultrasonic images obtained through the region of interest in the right groin were obtained which demonstrated a wide and shallow multiseptated fluid collection overlying the femoral vessels. Preparation: Time out was performed. The patient was then prepped and draped in sterile fashion. Local anesthesia was provided using 2% Lidocaine. Procedure/Findings: An 5Fx7cm Cook Solasta trocar needle was advanced using CT fluoroscopic guidance into the collection. Approximately 20 mL of yellow-tinged clear fluid was aspirated from the lesion and sent to the laboratory for culture. A guidewire was then passed through the needle, and a series of dilators were exchanged over the wire. A 8 Guatemalan mermaid drain was then placed over the wire, and additional images were obtained to confirm positioning of the catheter within the collection. The catheter was sutured to the skin with a single stitch, and connected to a suction bulb. Post-Procedure: Post-procedure images demonstrate the pigtail of the catheter within the collection. The patient tolerated the procedure well, with no immediate complications. IMPRESSION IMPRESSION: Successful placement of drain into a right groin fluid collection. A total of 20 mL is of yellow-tinged clear fluid was aspirated from the collection and some sent for culture. Continue suction drainage. Kisha Quarles DO was in the room and participated during all cannon portions of this procedure. I personally viewed and interpreted these images and I have reviewed and approved this report. [facility] GENERAL PROCEDUREon 03-20-20 Radiology Study observation (narrative) [facility] GLUCOSE POCon 03-20-2024 Glucose [Mass/Vol] 153 mg/dL High 70 - 99 mg/dL [facility] Interpretation and review of laboratory results Abnormal [facility] POC Sample Type CAPBL [facility] Test performed at ad dress of the patient encounter. [facility] Glucose [Mass/Vol] 183 mg/dL High 70 - 99 mg/dL [facility] Interpretation and review of laboratory results Abnormal [facility] POC Sample Type CAPBL [facility] Test performed at ad dress of the patient encounter. [facility] Laboratory - Hematology and Cell countson 03-20-2024 Hemoglobin (Bld) [Mass/Vol] 10.8 g/dL Low 13.4 - 16.8 g/dL [facility] MAGNESIUMon 03-20-2024 Magnesium [Mass/Vol] 1.6 mg/dL 1.6 - 2.6 mg/dL [facility] Magnesium [Mass/Vol] 1.6 mg/dL Normal 1.6-2.6 [facility] Comment on above: Performed By: #### C David, GEE, IPB, MGO ####[facility] (DEFAULT)[address] [place] [address] No Panel Informationon 03-20 [facility] Radiology Study observation (narrative) [facility] Interpretation and review of laboratory results Abnormal [facility] Interpretation and review of laboratory results Normal [facility] Interpretation and review of laboratory results Abnormal [facility] PHOSPHATE, INORGANICon 03-20 Phosphate [Mass/Vol] 3.8 mg/dL 2.2 - 4.6 mg/dL [facility] Phosphorous 3.8 mg/dL Normal 2.2-4.6 [facility] Comment on above: Performed By: #### C David, CHLacho7, IPB, MGO ####[facility] (DEFAULT)[address] [place] [address] PT,INR,PTTon 03-20-2024 aPTT Coag (PPP) [Time] 34.7 s High [facility] Comment on above: Specimen integrity c hecked. Results inconsistent with previous results INR Coag (Bld) [Relative time] 1.0 {INR} 0.9 - 1.1 [facility] Interpretation and review of laboratory results Abnormal [facility] PT Coag (PPP) [Time] 13.0 s [facility] aPTT Coag (Bld) [Time] 34.7 s High 24.0-34.3 [facility] Comment on above: Result Comment: Spec imen integrity checked.Results inconsistent with previous results Performed By: #### P TPTT ####[facility] (DEFAULT)[address] [place] [address] INR Coag (PPP) [Relative time] 1.0 {INR} Normal 0.9-1.1 [facility] Comment on above: Performed By: #### P TPTT ####[facility] (DEFAULT)[address] [place] [address] PT Coag (PPP) [Time] 13.0 s Normal 11.9-14.2 [facility] Comment on above: Performed By: #### P TPTT ####[facility] (DEFAULT)[address] [place] [address] PTTon 03-20-2024 aPTT Coag (PPP) [Time] 28.1 s [facility] Interpretation and review of laboratory results Normal [facility] BACTERIAL CULTURE AND DIRECT SMEAR, LESION, TISSUE, DEVICEOrdered By: Vianca Herman on 03-19-2024 Bacteria identified Cx Nom (Unsp spec) Growth [facility] Bacteria identified Cx Nom (Unsp spec) STAPHYLOCOCCUS EPIDERMIDIS Abnormal [facility] Comment on above: Susceptibilities not routinely performed. BACTERIAL CULTURE AND DIRECT SMEAR, LESION, TISSUE, DEVICEOrdered By: Asuncion Jamison on 03-19-2024 Bacteria identified Cx Nom (Unsp spec) NO GROWTH DAY 2 OF 2 [facility] Bacteria identified Cx Nom ( Unsp spec)Ordered By: Vianca Herman on 03-19-2024 Interpretation and review of laboratory results Abnormal [facility] Microscopic observation Other stain Nom (Unsp spec) Neutrophils, Light [facility] Microscopic observation Other stain Nom (Unsp spec) Mononuclear cells present [facility] Microscopic observation Other stain Nom (Unsp spec) Red Blood Cells [facility] Other stain Nom (Unsp spec) No organisms seen [facility] Bacteria identified Cx Nom ( Unsp spec)Ordered By: Asuncion Jamison on 03-19-2024 Microscopic observation Other stain Nom (Unsp spec) Neutrophils, Moderate [facility] Microscopic observation Other stain Nom (Unsp spec) [facility] cells [facility] Other stain Nom (Unsp spec) Red Blood Cells Present [facility] Microscopic observation Other stain Nom (Unsp spec) No organisms seen [facility] CALCIUMon 03-19-2024 Calcium [Mass/Vol] 8.5 mg/dL Low 8.6 - 10. 5 mg/dL [facility] Calcium [Mass/Vol] 8.5 mg/dL Low 8.6-10.5 [facility] Comment on above: Performed By: #### C A, MGO, CHM7, IPB ####[facility] (DEFAULT)[address] [place] [address] CBC,PLATELETSon 03-19-2024 Hematocrit (Bld) [Volume fraction] 32.7 % Low 39.6-48.8 [facility] Comment on above: Performed By: #### H EMO ####[facility] (DEFAULT)[address] [place] [address] Hemoglobin (Bld) [Mass/Vol] 10.8 g/dL Low 13.4-16.8 [facility] Comment on above: Performed By: #### H EMOGC ####[facility] (DEFAULT)[address] [place] [address] MCV (RBC) [Entitic vol] 89.1 fL Normal 79.0-94.5 [facility] Comment on above: Performed By: #### H EMOGC ####[facility] (DEFAULT)[address] [place] [address] Mean Cell Hgb 29.4 pg Normal 26.1-33.3 [facility] Comment on above: Performed By: #### H EMOGC ####[facility] (DEFAULT)[address] [facility] [place] [address] Mean Cell Hgb Conc 33.0 g/dL Normal 31.9-36.5 [facility] Comment on above: Performed By: #### H EMOGC ####[facility] (DEFAULT)[address] [place] [address] Platelet mean volume (Bld) [Entitic vol] 9.5 fL Normal 8.7-12.3 [facility] Comment on above: Performed By: #### H EMOGC ####[facility] (DEFAULT)[address] [place] [address] Platelets (Bld) [#/Vol] 219 10*3/uL Normal 146-337 [facility] Comment on above: Performed By: #### H EMOGC ####[facility] (DEFAULT)[address] [place] [address] RBC (Bld) [#/Vol] 3.67 10*6/uL Low 4.38-5.83 [facility] Comment on above: Performed By: #### H EMOGC ####[facility] (DEFAULT)[address] [facility] [place] [address] RBC Distribution 13.3 % Normal 10.9-14.3 [facility] Comment on above: Performed By: #### H EMOGC ####[facility] (DEFAULT)[address] [facility] [place] [address] WBC (Bld) [#/Vol] 5.76 10*3/uL Normal 3.73-10.10 [facility] Comment on above: Performed By: #### H [facility] ####[facility] (DEFAULT)[address] [place] [address] Erythrocyte distribution width (RBC) [Ratio] 13.3 % 10.9 - 14.3 % [facility] Hematocrit (Bld) [Volume fraction] 32.9 % Low 39.6 - 48.8 % [facility] Hemoglobin (Bld) [Mass/Vol] 11.3 g/dL Low 13.4 - 16.8 g/dL [facility] Interpretation and review of laboratory results Abnormal [facility] MCH (RBC) [Entitic mass] 30.1 pg 26.1 - 33.3 pg [facility] MCHC (RBC) [Mass/Vol] 34.3 g/dL 31.9 - 36.5 g/dL [facility] MCV (RBC) [Entitic vol] 87.5 fL 79.0 - 94.5 fL [facility] Platelet mean volume (Bld) [Entitic vol] 8.7 fL 8.7 - 12.3 fL [facility] Platelets (Bld) [#/Vol] 190 10*3/uL 146 - 337 K/uL [facility] RBC (Bld) [#/Vol] 3.76 10*6/uL Low [facility] WBC (Bld) [#/Vol] 6.19 10*3/uL 3.73 - 10. 10 K/uL [facility] Hematocrit (Bld) [Volume fraction] 32.9 % Low 39.6-48.8 [facility] Comment on above: Performed By: #### H [facility] ####[facility] (DEFAULT)[address] [place] [address] Hemoglobin (Bld) [Mass/Vol] 11.3 g/dL Low 13.4-16.8 [facility] Comment on above: Performed By: #### H EMOGC ####[facility] (DEFAULT)[address] [facility] [place] [address] MCV (RBC) [Entitic vol] 87.5 fL Normal 79.0-94.5 [facility] Comment on above: Performed By: #### H EMOGC ####[facility] (DEFAULT)[address] [facility] [place] [address] Mean Cell Hgb 30.1 pg Normal 26.1-33.3 [facility] Comment on above: Performed By: #### H EMOGC ####[facility] (DEFAULT)[address] [facility] [place] [address] Mean Cell Hgb Conc 34.3 g/dL Normal 31.9-36.5 [facility] Comment on above: Performed By: #### H EMOGC ####[facility] (DEFAULT)[address] [facility] [place] [address] Platelet mean volume (Bld) [Entitic vol] 8.7 fL Normal 8.7-12.3 [facility] Comment on above: Performed By: #### H EMOGC ####[facility] (DEFAULT)[address] [facility] [place] [address] Platelets (Bld) [#/Vol] 190 10*3/uL Normal 146-337 [facility] Comment on above: Performed By: #### H EMOGC ####[facility] (DEFAULT)[address] [facility] [place] [address] RBC (Bld) [#/Vol] 3.76 10*6/uL Low 4.38-5.83 [facility] Comment on above: Performed By: #### H EMOGC ####[facility] (DEFAULT)[address] [facility] [place] [address] RBC Distribution 13.3 % Normal 10.9-14.3 [facility] Comment on above: Performed By: #### H EMOGC ####[facility] (DEFAULT)[address] [place] [address] WBC (Bld) [#/Vol] 6.19 10*3/uL Normal 3.73-10.10 [facility] Comment on above: Performed By: #### H [facility] ####[facility] (DEFAULT)[address] [place] [address] CHEM 7 (LYTES,BUN,CREA,GLUC) on 03-19-2024 Anion gap [Moles/Vol] 13 mmol/L 7 - 17 mmol/L [facility] Chloride [Moles/Vol] 103 mmol/L 98 - 108 mmol/L [facility] CO2 [Moles/Vol] 25 mmol/L 21 - 31 mmol/L [facility] Creatinine [Mass/Vol] 0.97 mg/dL 0.70 - 1.30 mg/dL [facility] eGFR, CKD-EPI, Male 90 - PINF [facility] Comment on above: Reported eGFR is bas ed on the CKD-EPI 2020 equation using creatinine, age, and sex. Glucose [Mass/Vol] 214 mg/dL High 70 - 99 mg/dL [facility] Osmolality Calc [Osmolality] 294 [facility] Potassium [Moles/Vol] 3.9 mmol/L 3.5 - 5.0 mmol/L [facility] Sodium [Moles/Vol] 137 mmol/L 135 - 145 mmol/L [facility] Urea nitrogen [Mass/Vol] 13 mg/dL 7 - 25 mg/dL [facility] Urea nitrogen/Creatinine [Mass ratio] 13 mg/mg [facility] Anion gap [Moles/Vol] 13 mmol/L Normal 7-17 [facility] Comment on above: Performed By: #### C David MGO, CHM7, IPB ####[facility] (DEFAULT)[address] [place] [address] Chloride [Moles/Vol] 103 mmol/L Normal 98-108 [facility] Comment on above: Performed By: #### C A, MGO, CHM7, IPB ####[facility] (DEFAULT)[address] [facility] [place] [address] CO2 [Moles/Vol] 25 mmol/L Normal 21-31 [facility] Comment on above: Performed By: #### DIPTI Reddy CHMLoulou, IPB ####[facility] (DEFAULT)[address] [facility] [place] [address] Creatinine [Mass/Vol] 0.97 mg/dL Normal 0.70-1.30 [facility] Comment on above: Performed By: #### DIPTI Reddy CHM7, IPB ####[facility] (DEFAULT)[address] [place] [address] GFR/1.73 sq M.predicted among non-blacks MDRD (S/P/Bld) [Vol rate/Area] 90 mL/min/{1.73_m2} Normal >=60 [facility] Comment on above: Result Comment: Repo rted eGFR is based on the CKD-EPI 2020 equation using creatinine, age, and sex. Performed By: #### DIPTI Reddy CHM7, IPB ####[facility] (DEFAULT)[address] [place] [address] Glucose [Mass/Vol] 214 mg/dL High 70-99 [facility] Comment on above: Performed By: #### DIPTI Reddy CHM7, IPB ####[facility] (DEFAULT)[address] [facility] [place] [address] Osmolality [Osmolality] 294 mosm/kg Normal 278-305 [facility] Comment on above: Performed By: #### DIPTI Reddy CHMLoulou, IPB ####[facility] (DEFAULT)[address] [facility] [place] [address] Potassium [Moles/Vol] 3.9 mmol/L Normal 3.5-5.0 [facility] Comment on above: Performed By: #### C A, MGO, CHM7, IPB ####[facility] (DEFAULT)[address] [facility] [place] [address] Sodium [Moles/Vol] 137 mmol/L Normal 135-145 [facility] Comment on above: Performed By: #### C A, MGO, CHM7, IPB ####[facility] (DEFAULT)[address] [place] [address] Urea nitrogen [Mass/Vol] 13 mg/dL Normal 7-25 [facility] Comment on above: Performed By: #### C A, MGO, CHM7, IPB ####[facility] (DEFAULT)[address] [facility] [place] [address] Urea nitrogen/Creatinine [Mass ratio] 13 mg/mg Normal [facility] Comment on above: Performed By: #### Valentino A, MGO, CHM7, IPB ####[facility] (DEFAULT)[address] [place] [address] GLUCOSE POCon 03-19-2024 Glucose [Mass/Vol] 185 mg/dL High 70 - 99 mg/dL [facility] Interpretation and review of laboratory results Abnormal [facility] POC Sample Type CAPBL [facility] Test performed at ad dress of the patient encounter. [facility] Glucose [Mass/Vol] 168 mg/dL High 70 - 99 mg/dL [facility] Interpretation and review of laboratory results Abnormal [facility] POC Sample Type CAPBL [facility] Test performed at ad dress of the patient encounter. [facility] Glucose [Mass/Vol] 192 mg/dL High 70 - 99 mg/dL [facility] Interpretation and review of laboratory results Abnormal [facility] POC Sample Type CAPBL [facility] Test performed at ad dress of the patient encounter. [facility] MAGNESIUMon 03-19-2024 Magnesium [Mass/Vol] 1.9 mg/dL 1.6 - 2.6 mg/dL [facility] Magnesium [Mass/Vol] 1.9 mg/dL Normal 1.6-2.6 [facility] Comment on above: Performed By: #### C David MGOSCAR WaltonM7, IPB ####[facility] (DEFAULT)[address] [place] [address] No Panel Informationon 03-19 Interpretation and review of laboratory results Abnormal [facility] Interpretation and review of laboratory results Normal [facility] PHOSPHATE, INORGANICon 03-19 Phosphate [Mass/Vol] 3.9 mg/dL 2.2 - 4.6 mg/dL [facility] Phosphorous 3.9 mg/dL Normal 2.2-4.6 [facility] Comment on above: Performed By: #### C David MGOSCAR WaltonM7, IPB ####[facility] (DEFAULT)[address] [place] [address] PT,INR,PTTon 03-19-2024 aPTT Coag (PPP) [Time] 28.0 s [facility] INR Coag (Bld) [Relative time] 1.0 {INR} 0.9 - 1.1 [facility] Interpretation and review of laboratory results Normal [facility] PT Coag (PPP) [Time] 13.5 s [facility] aPTT Coag (Bld) [Time] 28.0 s Normal 24.0-34.3 [facility] Comment on above: Performed By: #### P TPTT ####[facility] (DEFAULT)[address] [place] [address] INR Coag (PPP) [Relative time] 1.0 {INR} Normal 0.9-1.1 [facility] Comment on above: Performed By: #### P TPTT ####[facility] (DEFAULT)[address] [place] [address] PT Coag (PPP) [Time] 13.5 s Normal 11.9-14.2 [facility] Comment on above: Performed By: #### P TPTT ####[facility] (DEFAULT)[address] [place] [address] PTTon 03-19-2024 aPTT Coag (Bld) [Time] 28.1 s Normal 24.0-34.3 [facility] Comment on above: Order Comment: Draw prior to initiation of intravenous Heparin. Performed By: #### P TT ####[facility] (DEFAULT)[address] [place] [address] CALCIUMon 03-18-2024 Calcium [Mass/Vol] 8.6 mg/dL 8.6 - 10. 5 mg/dL [facility] Calcium [Mass/Vol] 8.6 mg/dL Normal 8.6-10.5 [facility] Comment on above: Performed By: #### C HM7, IPB, MGO, [place] ####[facility] (DEFAULT)[address] [place] [address] CBC,PLATELETSon 03-18-2024 Erythrocyte distribution width (RBC) [Ratio] 13.4 % 10.9 - 14.3 % [facility] Hematocrit (Bld) [Volume fraction] 32.6 % Low 39.6 - 48.8 % [facility] Hemoglobin (Bld) [Mass/Vol] 11.2 g/dL Low 13.4 - 16.8 g/dL [facility] Interpretation and review of laboratory results Abnormal [facility] MCH (RBC) [Entitic mass] 29.8 pg 26.1 - 33.3 pg [facility] MCHC (RBC) [Mass/Vol] 34.4 g/dL 31.9 - 36.5 g/dL [facility] MCV (RBC) [Entitic vol] 86.7 fL 79.0 - 94.5 fL [facility] Platelet mean volume (Bld) [Entitic vol] 8.8 fL 8.7 - 12.3 fL [facility] Platelets (Bld) [#/Vol] 183 10*3/uL 146 - 337 K/uL [facility] RBC (Bld) [#/Vol] 3.76 10*6/uL Low [facility] WBC (Bld) [#/Vol] 6.40 10*3/uL 3.73 - 10. 10 K/uL [facility] Hematocrit (Bld) [Volume fraction] 32.6 % Low 39.6-48.8 [facility] Comment on above: Performed By: #### H EMO ####[facility] (DEFAULT)[address] [place] [address] Hemoglobin (Bld) [Mass/Vol] 11.2 g/dL Low 13.4-16.8 [facility] Comment on above: Performed By: #### H EMO ####[facility] (DEFAULT)[address] [place] [address], [place] [address] MCV (RBC) [Entitic vol] 86.7 fL Normal 79.0-94.5 [facility] Comment on above: Performed By: #### H EMO ####[facility] (DEFAULT)[address] [place] [address] Mean Cell Hgb 29.8 pg Normal 26.1-33.3 [facility] Comment on above: Performed By: #### H EMO ####[facility] (DEFAULT)[address] [place] [address] Mean Cell Hgb Conc 34.4 g/dL Normal 31.9-36.5 [facility] Comment on above: Performed By: #### H EMOGC ####[facility] (DEFAULT)[address] [place] [address] Platelet mean volume (Bld) [Entitic vol] 8.8 fL Normal 8.7-12.3 [facility] Comment on above: Performed By: #### H [facility] ####[facility] (DEFAULT)[address] [place] [address] Platelets (Bld) [#/Vol] 183 10*3/uL Normal 146-337 [facility] Comment on above: Performed By: #### H EMO ####[facility] (DEFAULT)[address] [place] [address] RBC (Bld) [#/Vol] 3.76 10*6/uL Low 4.38-5.83 [facility] Comment on above: Performed By: #### H [facility] ####[facility] (DEFAULT)[address] [place] [address] RBC Distribution 13.4 % Normal 10.9-14.3 [facility] Comment on above: Performed By: #### H [facility] ####[facility] (DEFAULT)[address] [place] [address] WBC (Bld) [#/Vol] 6.40 10*3/uL Normal 3.73-10.10 [facility] Comment on above: Performed By: #### H [facility] ####[facility] (DEFAULT)[address] [place] [address] CHEM 7 (LYTES,BUN,CREA,GLUC) on 03-18-2024 Anion gap [Moles/Vol] 14 mmol/L 7 - 17 mmol/L [facility] Chloride [Moles/Vol] 100 mmol/L 98 - 108 mmol/L [facility] CO2 [Moles/Vol] 25 mmol/L 21 - 31 mmol/L [facility] Creatinine [Mass/Vol] 0.88 mg/dL 0.70 - 1.30 mg/dL [facility] eGFR, CKD-EPI, Male - PINF [facility] Comment on above: Reported eGFR is bas ed on the CKD-EPI 2020 equation using creatinine, age, and sex. Glucose [Mass/Vol] 191 mg/dL High 70 - 99 mg/dL [facility] Osmolality Calc [Osmolality] 289 [facility] Potassium [Moles/Vol] 3.9 mmol/L 3.5 - 5.0 mmol/L [facility] Sodium [Moles/Vol] 135 mmol/L 135 - 145 mmol/L [facility] Urea nitrogen [Mass/Vol] 13 mg/dL 7 - 25 mg/dL [facility] Urea nitrogen/Creatinine [Mass ratio] 15 mg/mg [facility] Anion gap [Moles/Vol] 14 mmol/L Normal 7-17 [facility] Comment on above: Performed By: #### C HM7, IPB, MGO, CA ####[facility] (DEFAULT)[address] [place] [address] Chloride [Moles/Vol] 100 mmol/L Normal 98-108 [facility] Comment on above: Performed By: #### C HM7, IPB, MGO, CA ####[facility] (DEFAULT)[address] [place] [address] CO2 [Moles/Vol] 25 mmol/L Normal 21-31 [facility] Comment on above: Performed By: #### Valentino HM7, IPB, MGO, CA ####[facility] (DEFAULT)[address] [place] [address] Creatinine [Mass/Vol] 0.88 mg/dL Normal 0.70-1.30 [facility] Comment on above: Performed By: #### Valentino HM7, IPB, MGO, CA ####[facility] (DEFAULT)[address] [place] [address] eGFR, CKD-EPI, Male > Normal >=60 [facility] Comment on above: Result Comment: Repo rted eGFR is based on the CKD-EPI 2020 equation using creatinine, age, and sex. Performed By: #### Valentino HM7, IPB, MGO, CA ####[facility] (DEFAULT)[address] [place] [address] Glucose [Mass/Vol] 191 mg/dL High 70-99 [facility] Comment on above: Performed By: #### C HM7, IPB, MGO, CA ####[facility] (DEFAULT)[address] [place] [address] Osmolality [Osmolality] 289 mosm/kg Normal 278-305 [facility] Comment on above: Performed By: #### C HM7, IPB, MGO, CA ####[facility] (DEFAULT)[address] [place] [address] Potassium [Moles/Vol] 3.9 mmol/L Normal 3.5-5.0 [facility] Comment on above: Performed By: #### C HM7, IPB, MGO, CA ####[facility] (DEFAULT)[address] [place] [address] Sodium [Moles/Vol] 135 mmol/L Normal 135-145 [facility] Comment on above: Performed By: #### C HM7, IPB, MGO, CA ####[facility] (DEFAULT)[address] [place] [address] Urea nitrogen [Mass/Vol] 13 mg/dL Normal 7-25 [facility] Comment on above: Performed By: #### C HM7, IPB, MGO, CA ####[facility] (DEFAULT)[address] [place] [address] Urea nitrogen/Creatinine [Mass ratio] 15 mg/mg Normal [facility] Comment on above: Performed By: #### C HM7, IPB, MGO, CA ####[facility] (DEFAULT)[address] [place] [address] [address] PELVIS WITH CONTRAST Normal [facility] CT Pelvis W contrast Seda IMPRESSION: 1. Post partial penectomy and bilateral inguinofemoral lymph node dissection. Stable to increased size of bilateral inguinal collections from recent CT dated March 16, 2024. Air pockets along the soft tissues and scrotum have slightly decreased from prior exam. 2. Other ancillary findings as described above. OLOGY EXAM: CT PELVIS WITH CONTRAST, 03/18/2024 17:09 PM COMPARISON: CT abdomen/pelvis dated March 16, 2024. CLINICAL INDICATIONS: US showed ill-defined fluid collection in the right groin measures 7.0 x 1.8 x 3.4 cm. Surrounding tissues are edematous. IR would like further imaging to determine if additonal drain/drainage needed. Please extend to midthigh region.; TECHNIQUE: CT scanning of the pelvis was performed following the administration of intravenous contrast. PROTOCOL: Standard. CONTRAST: iohexol (OMNIPAQUE) 350 MG/ML injection 1-171 mL; Route of Administration: Intravenous; Dose: 90 mL. FINDINGS: GI: Visualized bowel loops are nondilated. Few colonic diverticula with no evidence of acute diverticulitis. Normal appendix with centrally located tip. Bladder: Bladder is partially distended. Circumferential bladder wall thickening, likely related to underdistention. Genital: Seminal vesicles are unremarkable. The prostate is mildly enlarged and heterogenous, measuring 5.1 cm in transverse dimension. Postsurgical changes from partial penectomy. Edema visualized in the resection bed, as well as slightly decreased air pockets in the resection bed and scrotal sac. Adenopathy: No pelvic adenopathy is identified. Vascular: No major vascular abnormality is seen. Scattered atherosclerotic plaques visualized in the abdominal aorta and iliac arteries. Soft Tissues: Postsurgical changes from prior bilateral inguinofemoral lymph node dissection, with stable position of partially visualized bilateral surgical drains. Fluid collections in the bilateral inguinal regions as follows: * Right inguinal collection measures 4.2 x 3.9 cm (series 2 image 89) this, previously 4.4 x 3.8 cm. * Left inguinal collection measures 5.3 x 3.4 cm (series 2 image 90), previously 4.2 x 2.9 cm. Air foci along the soft tissues of the proximal bilateral thighs, groins and abdominal wall have slightly decreased compared to prior exam. Bony: Bony structures are stable with multilevel degenerative changes. Unchanged scattered sclerotic foci in the pelvic bones. RADIOLOGY Willy Harris, Ir lena Oneil MD - 03/18/2024 EXAM: CT PELVIS WITH CONTRAST, 03/18/2024 17:09 PM COMPARISON: CT abdomen/pelvis dated March 16, 2024. CLINICAL INDICATIONS: US showed ill-defined fluid collection in the right groin measures 7.0 x 1.8 x 3.4 cm. Surrounding tissues are edematous. IR would like further imaging to determine if additonal drain/drainage needed. Please extend to midthigh region.; TECHNIQUE: CT scanning of the pelvis was performed following the administration of intravenous contrast. PROTOCOL: Standard. CONTRAST: iohexol (OMNIPAQUE) 350 MG/ML injection 1-171 mL; Route of Administration: Intravenous; Dose: 90 mL. FINDINGS: GI: Visualized bowel loops are nondilated. Few colonic diverticula with no evidence of acute diverticulitis. Normal appendix with centrally located tip. Bladder: Bladder is partially distended. Circumferential bladder wall thickening, likely related to underdistention. Genital: Seminal vesicles are unremarkable. The prostate is mildly enlarged and heterogenous, measuring 5.1 cm in transverse dimension. Postsurgical changes from partial penectomy. Edema visualized in the resection bed, as well as slightly decreased air pockets in the resection bed and scrotal sac. Adenopathy: No pelvic adenopathy is identified. Vascular: No major vascular abnormality is seen. Scattered atherosclerotic plaques visualized in the abdominal aorta and iliac arteries. Soft Tissues: Postsurgical changes from prior bilateral inguinofemoral lymph node dissection, with stable position of partially visualized bilateral surgical drains. Fluid collections in the bilateral inguinal regions as follows: * Right inguinal collection measures 4.2 x 3.9 cm (series 2 image 89) this, previously 4.4 x 3.8 cm. * Left inguinal collection measures 5.3 x 3.4 cm (series 2 image 90), previously 4.2 x 2.9 cm. Air foci along the soft tissues of the proximal bilateral thighs, groins and abdominal wall have slightly decreased compared to prior exam. Bony: Bony structures are stable with multilevel degenerative changes. Unchanged scattered sclerotic foci in the pelvic bones. IMPRESSION IMPRESSION: 1. Post partial penectomy and bilateral inguinofemoral lymph node dissection. Stable to increased size of bilateral inguinal collections from recent CT dated March 16, 2024. Air pockets along the soft tissues and scrotum have slightly decreased from prior exam. 2. Other ancillary findings as described above. [facility] Radiology Study observation (narrative) [facility] CT Pelvis W contrast IVOrder ed By: Dafne Harris on 03-18-2024 [facility] Work Phone: GLUCOSE POCon 03-18-2024 Glucose [Mass/Vol] 262 mg/dL High 70 - 99 mg/dL [facility] Interpretation and review of laboratory results Abnormal [facility] POC Sample Type CAPBL [facility] Test performed at ad dress of the patient encounter. [facility] Glucose [Mass/Vol] 158 mg/dL High 70 - 99 mg/dL [facility] Interpretation and review of laboratory results Abnormal [facility] POC Sample Type CAPBL [facility] Test performed at ad dress of the patient encounter. [facility] Glucose [Mass/Vol] 230 mg/dL High 70 - 99 mg/dL [facility] Interpretation and review of laboratory results Abnormal [facility] POC Sample Type CAPBL [facility] Test performed at ad dress of the patient encounter. [facility] LACTATE, BLOODon 03-18-2024 Interpretation and review of laboratory results Abnormal [facility] Lactate [Moles/Vol] 1.9 mmol/L High 0.5 - 1. 6 mmol/L [facility] Lactate, Blood 1.9 mmol/L High 0.5-1.6 [facility] Comment on above: Performed By: #### L ACT ####[facility] (DEFAULT)[address] [place] [address] Lactate, Blood 1.5 mmol/L Normal 0.5-1.6 [facility] Comment on above: Performed By: #### L ACT ####[facility] (DEFAULT)[address] [place] [address] LACTATE, BLOODOrdered By: Angie Pack on 03-18-2024 Interpretation and review of laboratory results Normal [facility] Lactate [Moles/Vol] 1.5 mmol/L 0.5 - 1. 6 mmol/L [facility] MAGNESIUMon 03-18-2024 Magnesium [Mass/Vol] 1.6 mg/dL 1.6 - 2.6 mg/dL [facility] Magnesium [Mass/Vol] 1.6 mg/dL Normal 1.6-2.6 [facility] Comment on above: Performed By: #### C HM7, IPB, MGO, CA ####[facility] (DEFAULT)[address] [place] [id number] No Panel Informationon 03-18 Interpretation and review of laboratory results Normal [facility] Interpretation and review of laboratory results Abnormal [facility] PHOSPHATE, INORGANICon 03-18 Phosphate [Mass/Vol] 3.7 mg/dL 2.2 - 4.6 mg/dL [facility] Phosphorous 3.7 mg/dL Normal 2.2-4.6 [facility] Comment on above: Performed By: #### C HM7, IPB, MGO, CA ####[facility] (DEFAULT)[address] [place] [address] US Lower extremity - righton 03-18-2024 FINDINGS/IMPRESSION: Heterogeneous, ill-defined fluid collection in the right groin measures 7.0 x 1.8 x 3.4 cm. Surrounding tissues are edematous. OLOGY EXAM: US NON VASCULA R EXTREMITY LOWER RIGHT WITHOUT CONTRAST, 03/18/2024 06:00 AM CLINICAL INDICATIONS: Assessment of R groin fluid collection COMPARISON: CT abdomen and pelvis from March 16, 2024 TECHNIQUE: Multiple longitudinal and transverse real-time grayscale images of the right groin were obtained. Color flow Doppler was also utilized. RADIOLOGY Birgit Meadows MD - 03/18/2024 EXAM: US NON VASCULAR EXTREMITY LOWER RIGHT WITHOUT CONTRAST, 03/18/2024 06:00 AM CLINICAL INDICATIONS: Assessment of R groin fluid collection COMPARISON: CT abdomen and pelvis from March 16, 2024 TECHNIQUE: Multiple longitudinal and transverse real-time grayscale images of the right groin were obtained. Color flow Doppler was also utilized. IMPRESSION FINDINGS/IMPRESSION: Heterogeneous, ill-defined fluid collection in the right groin measures 7.0 x 1.8 x 3.4 cm. Surrounding tissues are edematous. [facility] Radiology Study observation (narrative) [facility] US Lower extremity - rightOr dered By: Birgit Meadows on 03-18-2024 [facility] Work Phone: US NON VASCULAR EXTREMITY LO WER RIGHT WITHOUT CONTRASTon 03-18-2024 US NON VASCULAR EXTREMITY LOWER RIGHT WITHOUT CONTRAST Normal [facility] VANCOMYCIN LEVEL, TROUGH (KS E DRUG LEVEL)on 03-18-2024 Vancomycin trough [Mass/Vol] 4.1 ug/mL Low Therapeutic Range: 10.0-20.0 mcg/mL mcg/mL [facility] Vancomycin, Trough 4.1 mcg/mL Low Therapeut ic Range: 10.0-20.0 mcg/mL [facility] Comment on above: Order Comment: Pleas e draw level at specified interval PRIOR to next dose. Performed By: #### V ANCTR ####[facility] (DEFAULT)[address] [place] [address] BACTERIAL CULTURE AND DIRECT SMEAR, LESION, TISSUE, DEVICEon 03-17-2024 Bacteria identified Cx Nom (Unsp spec) Normal [facility] Comment on above: Result Comment: Grow [id number] Growth Staphylococcus epidermidisSusceptibilities not routinely performed. Performed By: #### G EN ####[facility] (DEFAULT)[address] [place] [address] Bacteria identified Cx Nom (Unsp spec) NO GROWTH DAY 2 OF 2 Normal [facility] Comment on above: Performed By: #### G EN ####[facility] (DEFAULT)[address] [place] [address] Microscopic observation Gram stain Nom (Unsp spec) Normal [facility] Comment on above: Result Comment: Neut rophils, LightMononuclear cells presentRed Blood Cells PresentNo organisms seen Performed By: #### G EN ####[facility] (DEFAULT)[address] [place] [address] Result Comment: Neut rophils, ModerateMononuclear cells presentRed Blood Cells PresentNo organisms seen CALCIUMon 03-17-2024 Calcium [Mass/Vol] 8.2 mg/dL Low 8.6 - 10. 5 mg/dL [facility] Calcium [Mass/Vol] 8.2 mg/dL Low 8.6-10.5 [facility] Comment on above: Performed By: #### M GO, IPB, CHM7, [place] ####[facility] (DEFAULT)[address] [place] [address] CBC,PLATELETSon 03-17-2024 Erythrocyte distribution width (RBC) [Ratio] 13.6 % 10.9 - 14.3 % [facility] Hematocrit (Bld) [Volume fraction] 30.3 % Low 39.6 - 48.8 % [facility] Hemoglobin (Bld) [Mass/Vol] 10.1 g/dL Low 13.4 - 16.8 g/dL [facility] Comment on above: Results inconsistent with previous results Interpretation and review of laboratory results Abnormal [facility] MCH (RBC) [Entitic mass] 29.2 pg 26.1 - 33.3 pg [facility] MCHC (RBC) [Mass/Vol] 33.3 g/dL 31.9 - 36.5 g/dL [facility] MCV (RBC) [Entitic vol] 87.6 fL 79.0 - 94.5 fL [facility] Platelet mean volume (Bld) [Entitic vol] 8.8 fL 8.7 - 12.3 fL [facility] Platelets (Bld) [#/Vol] 181 10*3/uL 146 - 337 K/uL [facility] RBC (Bld) [#/Vol] 3.46 10*6/uL Low [facility] WBC (Bld) [#/Vol] 7.94 10*3/uL 3.73 - 10. 10 K/uL [facility] Hematocrit (Bld) [Volume fraction] 30.3 % Low 39.6-48.8 [facility] Comment on above: Performed By: #### H [facility] ####[facility] (DEFAULT)[address] [place] [address] Hemoglobin (Bld) [Mass/Vol] 10.1 g/dL Low 13.4-16.8 [facility] Comment on above: Result Comment: Resu lts inconsistent with previous results Performed By: #### H [facility] ####[facility] (DEFAULT)[address] [place] [address] MCV (RBC) [Entitic vol] 87.6 fL Normal 79.0-94.5 [facility] Comment on above: Performed By: #### H [facility] ####[facility] (DEFAULT)[address] [place] [address] Mean Cell Hgb 29.2 pg Normal 26.1-33.3 [facility] Comment on above: Performed By: #### H [facility] ####[facility] (DEFAULT)[address] [place] [address] Mean Cell Hgb Conc 33.3 g/dL Normal 31.9-36.5 [facility] Comment on above: Performed By: #### H DASIA ####[facility] (DEFAULT)[address] [place] [address] Platelet mean volume (Bld) [Entitic vol] 8.8 fL Normal 8.7-12.3 [facility] Comment on above: Performed By: #### H EMO ####[facility] (DEFAULT)[address] [place] [address] Platelets (Bld) [#/Vol] 181 10*3/uL Normal 146-337 [facility] Comment on above: Performed By: #### H EMO ####[facility] (DEFAULT)[address] [place] [address] RBC (Bld) [#/Vol] 3.46 10*6/uL Low 4.38-5.83 [facility] Comment on above: Performed By: #### H EMO ####[facility] (DEFAULT)[address] [place] [address] RBC Distribution 13.6 % Normal 10.9-14.3 [facility] Comment on above: Performed By: #### H EMO ####[facility] (DEFAULT)[address] [place] [address] WBC (Bld) [#/Vol] 7.94 10*3/uL Normal 3.73-10.10 [facility] Comment on above: Performed By: #### H EMO ####[facility] (DEFAULT)[address] [place] [address] CHEM 7 (LYTES,BUN,CREA,GLUC) on 03-17-2024 Anion gap [Moles/Vol] 14 mmol/L 7 - 17 mmol/L [facility] Chloride [Moles/Vol] 103 mmol/L 98 - 108 mmol/L [facility] CO2 [Moles/Vol] 22 mmol/L 21 - 31 mmol/L [facility] Creatinine [Mass/Vol] 0.88 mg/dL 0.70 - 1.30 mg/dL [facility] eGFR, CKD-EPI, Male - PINF [facility] Comment on above: Reported eGFR is bas ed on the CKD-EPI 2020 equation using creatinine, age, and sex. Glucose [Mass/Vol] 177 mg/dL High 70 - 99 mg/dL [facility] Osmolality Calc [Osmolality] 288 [facility] Potassium [Moles/Vol] 4.1 mmol/L 3.5 - 5.0 mmol/L [facility] Sodium [Moles/Vol] 135 mmol/L 135 - 145 mmol/L [facility] Urea nitrogen [Mass/Vol] 11 mg/dL 7 - 25 mg/dL [facility] Urea nitrogen/Creatinine [Mass ratio] 13 mg/mg [facility] Anion gap [Moles/Vol] 14 mmol/L Normal 7-17 [facility] Comment on above: Performed By: #### VICTOR HUGO GRAFF, CHM7, [place] ####[facility] (DEFAULT)[address] [place] [address] Chloride [Moles/Vol] 103 mmol/L Normal 98-108 [facility] Comment on above: Performed By: #### VICTOR HUGO GRAFF, CHM7, [place] ####[facility] (DEFAULT)[address] [facility] [place] [address] CO2 [Moles/Vol] 22 mmol/L Normal 21-31 [facility] Comment on above: Performed By: #### VICTOR HUGO GRAFF, CHM7, [place] ####[facility] (DEFAULT)[address] [facility] [place] [address] Creatinine [Mass/Vol] 0.88 mg/dL Normal 0.70-1.30 [facility] Comment on above: Performed By: #### VICTOR HUGO GRAFF, CHM7, [place] ####[facility] (DEFAULT)[address] [facility] [place] [address] eGFR, CKD-EPI, Male > Normal >=60 [facility] Comment on above: Result Comment: Repo rted eGFR is based on the CKD-EPI 2020 equation using creatinine, age, and sex. Performed By: #### VICTOR HUGO GRAFF CHM7, [place] ####[facility] (DEFAULT)[address] [place] [address] Glucose [Mass/Vol] 177 mg/dL High 70-99 [facility] Comment on above: Performed By: #### VICTOR HUGO GRAFF, TEX7, [place] ####[facility] (DEFAULT)[address] [place] [address] Osmolality [Osmolality] 288 mosm/kg Normal 278-305 [facility] Comment on above: Performed By: #### VICTOR HUGO GRAFF, TEX7, [place] ####[facility] (DEFAULT)[address] [place] [address] Potassium [Moles/Vol] 4.1 mmol/L Normal 3.5-5.0 [facility] Comment on above: Performed By: #### VICTOR HUGO GRAFF, OSCARM7, [place] ####[facility] (DEFAULT)[address] [place] [address] Sodium [Moles/Vol] 135 mmol/L Normal 135-145 [facility] Comment on above: Performed By: #### VICTOR HUGO GRAFF, CHM7, [place] ####[facility] (DEFAULT)[address] [place] [address] Urea nitrogen [Mass/Vol] 11 mg/dL Normal 7-25 [facility] Comment on above: Performed By: #### VICTOR HUGO GRAFF, CHM7, [place] ####[facility] (DEFAULT)[address] [place] [address] Urea nitrogen/Creatinine [Mass ratio] 13 mg/mg Normal [facility] Comment on above: Performed By: #### VICTOR HUGO GRAFF, CHM7, [place] ####[facility] (DEFAULT)[address] [place] [address] GLUCOSE POCon 03-17-2024 Glucose [Mass/Vol] 195 mg/dL High 70 - 99 mg/dL [facility] Interpretation and review of laboratory results Abnormal [facility] POC Sample Type CAPBL [facility] Test performed at ad dress of the patient encounter. [facility] Glucose [Mass/Vol] 201 mg/dL High 70 - 99 mg/dL [facility] Interpretation and review of laboratory results Abnormal [facility] POC Sample Type [facility] Test performed at ad dress of the patient encounter. [facility] Glucose [Mass/Vol] 169 mg/dL High 70 - 99 mg/dL [facility] Interpretation and review of laboratory results Abnormal [facility] POC Sample Type CAPBL [facility] Test performed at ad dress of the patient encounter. [facility] Glucose [Mass/Vol] 192 mg/dL High 70 - 99 mg/dL [facility] Interpretation and review of laboratory results Abnormal [facility] POC Sample [facility] Test performed at ad dress of the patient encounter. [facility] LACTATE, BLOODOrdered By: Brittany Agosto on 03-17-2024 Interpretation and review of laboratory results Abnormal [facility] Lactate [Moles/Vol] 2.1 mmol/L High 0.5 - 1. 6 mmol/L [facility] Comment on above: Lactate results >/= 2.0 mmol/L should be followed up with a measurement 2 hours later for patients with suspicion of sepsis. [facility] LACTATE, BLOODon 03-17-2024 Lactate, Blood 2.1 mmol/L High 0.5-1.6 [facility] Comment on above: Result Comment: Lact ate results >/= 2.0 mmol/L should be followed up with a measurement 2 hours later for patients with suspicion of sepsis. Performed By: #### L ACT ####[facility] (DEFAULT)[address] [facility] [place] [address] Lactate, Blood 1.7 mmol/L High 0.5-1.6 [facility] Comment on above: Performed By: #### L ACT ####[facility] (DEFAULT)[address] [place] [address] Lactate, Blood 2.0 mmol/L High 0.5-1.6 [facility] Comment on above: Result Comment: Lact ate results >/= 2.0 mmol/L should be followed up with a measurement 2 hours later for patients with suspicion of sepsis. Performed By: #### L ACT ####[facility] (DEFAULT)[address] [place] [address] LACTATE, BLOODOrdered By: Ranulfo Weiss on 03-17-2024 Interpretation and review of laboratory results Abnormal [facility] Lactate [Moles/Vol] 1.7 mmol/L High 0.5 - 1. 6 mmol/L [facility] LACTATE, BLOODOrdered By: Blair Shelby on 03-17-2024 Interpretation and review of laboratory results Abnormal [facility] Lactate [Moles/Vol] 2.0 mmol/L High 0.5 - 1. 6 mmol/L [facility] Comment on above: Lactate results >/= 2.0 mmol/L should be followed up with a measurement 2 hours later for patients with suspicion of sepsis. [facility] MAGNESIUMon 03-17-2024 Magnesium [Mass/Vol] 1.5 mg/dL Low 1.6 - 2.6 mg/dL [facility] Magnesium [Mass/Vol] 1.5 mg/dL Low 1.6-2.6 [facility] Comment on above: Performed By: #### M GO, IPB, CHM7, [place] ####[facility] (DEFAULT)[address] [place] [address] No Panel Informationon 03-17 Interpretation and review of laboratory results Abnormal [facility] PHOSPHATE, INORGANICon 03-17 Interpretation and review of laboratory results Normal [facility] Phosphate [Mass/Vol] 3.7 mg/dL 2.2 - 4.6 mg/dL [facility] Phosphorous 3.7 mg/dL Normal 2.2-4.6 [facility] Comment on above: Performed By: #### M VICTOR HUGO AHMADI, CHM7, [place] ####[facility] (DEFAULT)[address] [place] [address] BLOOD CULTUREon 03-16-2024 Bacteria identified Cx Nom (Unsp spec) NO GROWTH DAY 5 OF 5 Normal [facility] Comment on above: Order Comment: 2 Bot tles (1 Set - consists of 1 Aerobic bottle and 1 Anaerobic bottle) -1st Peripheral DrawFor vacutainer method draw: Fill aerobic bottle first, then anaerobicResults may be compromised due to HIGH VOLUME of the BACT\ALERT bottle EXCEEDING 10mLs, which can be associated with increased contamination. The optimal blood volume is 8-10mLs per aerobic/anaerobic blood culture bottle. Performed By: #### B LDCULT ####[facility] (DEFAULT)[address] [place] [id number] Order Comment: 2 Bot tles (1 Set - consists of 1 Aerobic bottle and 1 Anaerobic bottle) -1st Peripheral DrawFor vacutainer method draw: Fill aerobic bottle first, then anaerobic CALCIUMon 03-16-2024 Calcium [Mass/Vol] 9.1 mg/dL 8.6 - 10. 5 mg/dL [facility] Calcium [Mass/Vol] 9.1 mg/dL Normal 8.6-10.5 [facility] Comment on above: Performed By: #### M Francisco AHMADIED, VICTOR HUGO, [place] ####[facility] (DEFAULT)[address] [place] [id number] CBC AND ELECTRONIC DIFFon Basophils (Bld) [#/Vol] 0.06 10*3/uL 0.00 - 0.09 K/uL [facility] Basophils/100 WBC (Bld) 0.4 % [facility] Differential cell count method Nom (Bld) Electronic Differential [facility] Eosinophils (Bld) [#/Vol] 0.06 10*3/uL 0.00 - 0.48 K/uL [facility] Eosinophils/100 WBC (Bld) 0.4 % [facility] Erythrocyte distribution width (RBC) [Ratio] 13.4 % 10.9 - 14.3 % [facility] Hematocrit (Bld) [Volume fraction] 38.6 % Low 39.6 - 48.8 % [facility] Hemoglobin (Bld) [Mass/Vol] 13.3 g/dL Low 13.4 - 16.8 g/dL [facility] Immature granulocytes (Bld) [#/Vol] 0.04 10*3/uL NINF - 0.07 K/uL [facility] Immature granulocytes/100 WBC (Bld) 0.3 % [facility] Interpretation and review of laboratory results Abnormal [facility] Lymphocytes (Bld) [#/Vol] 1.43 10*3/uL 0.83 - 3.57 K/uL [facility] Lymphocytes/100 WBC (Bld) 10.5 % [facility] MCH (RBC) [Entitic mass] 30.2 pg 26.1 - 33.3 pg [facility] MCHC (RBC) [Mass/Vol] 34.5 g/dL 31.9 - 36.5 g/dL [facility] MCV (RBC) [Entitic vol] 87.5 fL 79.0 - 94.5 fL [facility] Monocytes (Bld) [#/Vol] 1.06 10*3/uL High 0.24 - 0.93 K/uL [facility] Monocytes/100 WBC (Bld) 7.8 % [facility] Neutrophils (Bld) [#/Vol] 10.95 10*3/uL High 1.57 - 6.19 K/uL [facility] Nucleated RBC/100 WBC (Bld) [Ratio] 0.0 % [facility] Platelet mean volume (Bld) [Entitic vol] 8.7 fL 8.7 - 12.3 fL [facility] Platelets (Bld) [#/Vol] 228 10*3/uL 146 - 337 K/uL [facility] RBC (Bld) [#/Vol] 4.41 10*6/uL [facility] Segmented neutrophils/100 WBC (Bld) 80.6 % [facility] WBC (Bld) [#/Vol] 13.60 10*3/uL High 3.73 - 10 .10 K/uL [facility] Basophils (Bld) [#/Vol] 0.06 10*3/uL Normal 0.00-0.09 [facility] Comment on above: Performed By: #### L [id number] ####[facility] (DEFAULT)[address] [place] [address] Basophils/100 WBC (Bld) 0.4 % Normal [facility] Comment on above: Performed By: #### L [id number] ####[facility] (DEFAULT)[address] [place] [address] DIFF STATUS Electronic Differential Normal [facility] Comment on above: Performed By: #### L [id number] ####[facility] (DEFAULT)[address] [place] [address] Eosinophils (Bld) [#/Vol] 0.06 10*3/uL Normal 0.00-0.48 [facility] Comment on above: Performed By: #### L [id number] ####[facility] (DEFAULT)[address] [place] [address] Eosinophils/100 WBC (Bld) 0.4 % Normal [facility] Comment on above: Performed By: #### L [id number] ####[facility] (DEFAULT)[address] [place] [address] Hematocrit (Bld) [Volume fraction] 38.6 % Low 39.6-48.8 [facility] Comment on above: Performed By: #### L [id number] ####[facility] (DEFAULT)[address] [place] [address] Hemoglobin (Bld) [Mass/Vol] 13.3 g/dL Low 13.4-16.8 [facility] Comment on above: Performed By: #### L [id number] ####[facility] (DEFAULT)[address] [facility] [place] [address] Immature Grans % 0.3 % Normal [facility] Comment on above: Performed By: #### L [id number] ####[facility] (DEFAULT)[address] [place] [address] Immature Grans Absolute 0.04 K/uL Normal <=0.07 [facility] Comment on above: Performed By: #### L [id number] ####[facility] (DEFAULT)[address] [place] [address], [place] [address] Lymphocytes (Bld) [#/Vol] 1.43 10*3/uL Normal 0.83-3.57 [facility] Comment on above: Performed By: #### L [id number] ####[facility] (DEFAULT)[address] [place] [address] Lymphocytes/100 WBC (Bld) 10.5 % Normal [facility] Comment on above: Performed By: #### L [id number] ####[facility] (DEFAULT)[address] [place] [address], [place] [address] MCV (RBC) [Entitic vol] 87.5 fL Normal 79.0-94.5 [facility] Comment on above: Performed By: #### L [id number] ####[facility] (DEFAULT)[address] [place] [address] Mean Cell Hgb 30.2 pg Normal 26.1-33.3 [facility] Comment on above: Performed By: #### L [id number] ####[facility] (DEFAULT)[address] [place] [address] Mean Cell Hgb Conc 34.5 g/dL Normal 31.9-36.5 [facility] Comment on above: Performed By: #### L [id number] ####[facility] (DEFAULT)[address] [place] [address] Monocytes (Bld) [#/Vol] 1.06 10*3/uL High 0.24-0.93 [facility] Comment on above: Performed By: #### L [id number] ####[facility] (DEFAULT)[address] [facility] [place] [address] Monocytes/100 WBC (Bld) 7.8 % Normal [facility] Comment on above: Performed By: #### L [id number] ####[facility] (DEFAULT)[address] [facility] [place] [address] Nucleated RBC 0.0 /100 WBC Normal <=0.2 [facility] Comment on above: Performed By: #### L [id number] ####[facility] (DEFAULT)[address] [facility] [place] [address] Platelet mean volume (Bld) [Entitic vol] 8.7 fL Normal 8.7-12.3 [facility] Comment on above: Performed By: #### L [id number] ####[facility] (DEFAULT)[address] [facility] [place] [address] Platelets (Bld) [#/Vol] 228 10*3/uL Normal 146-337 [facility] Comment on above: Performed By: #### L [id number] ####[facility] (DEFAULT)[address] [facility] [place] [address] RBC (Bld) [#/Vol] 4.41 10*6/uL Normal 4.38-5.83 [facility] Comment on above: Performed By: #### L [id number] ####[facility] (DEFAULT)[address] [place] [address] RBC Distribution 13.4 % Normal 10.9-14.3 [facility] Comment on above: Performed By: #### L [id number] ####[facility] (DEFAULT)[address] [place] [address] Segs + Bands Auto 80.6 % Normal [facility] Comment on above: Performed By: #### L [id number] ####[facility] (DEFAULT)[address] [place] [address] Segs + Bands,Absolute Auto 10.95 K/uL High 1.57-6.19 [facility] Comment on above: Performed By: #### L [id number] ####[facility] (DEFAULT)[address] [place] [address] WBC (Bld) [#/Vol] 13.60 10*3/uL High 3.73-10.10 [facility] Comment on above: Performed By: #### L [id number] ####[facility] (DEFAULT)[address] [place] [address] CHM 7 - EDon 03-16-2024 Anion gap [Moles/Vol] 14 mmol/L 7 - 17 mmol/L [facility] Chloride [Moles/Vol] 100 mmol/L 98 - 108 mmol/L [facility] CO2 [Moles/Vol] 22 mmol/L 21 - 31 mmol/L [facility] Creatinine [Mass/Vol] 1.00 mg/dL 0.70 - 1.30 mg/dL [facility] eGFR, CKD-EPI, Male 87 - PINF [facility] Comment on above: Reported eGFR is bas ed on the CKD-EPI 2020 equation using creatinine, age, and sex. Glucose [Mass/Vol] 194 mg/dL High 70 - 99 mg/dL [facility] Osmolality Calc [Osmolality] 285 [facility] Potassium [Moles/Vol] 4.3 mmol/L 3.5 - 5.0 mmol/L [facility] Sodium [Moles/Vol] 132 mmol/L Low 135 - 145 mmol/L [facility] Urea nitrogen [Mass/Vol] 15 mg/dL 7 - 25 mg/dL [facility] Urea nitrogen/Creatinine [Mass ratio] 15 mg/mg [facility] Anion gap [Moles/Vol] 14 mmol/L Normal 7-17 [facility] Comment on above: Performed By: #### M GO, C7ED, IPB, [place] ####[facility] (DEFAULT)[address] [place] [address] Chloride [Moles/Vol] 100 mmol/L Normal 98-108 [facility] Comment on above: Performed By: #### Lacho GO, C7ED, IPB, [place] ####[facility] (DEFAULT)[address] [place] [address] CO2 [Moles/Vol] 22 mmol/L Normal 21-31 [facility] Comment on above: Performed By: #### Lacho GO, C7ED, IPB, CA ####[facility] (DEFAULT)[address] [place] [address] Creatinine [Mass/Vol] 1.00 mg/dL Normal 0.70-1.30 [facility] Comment on above: Performed By: #### Lacho GO, C7ED, IPB, CA ####[facility] (DEFAULT)[address] [place] [address] GFR/1.73 sq M.predicted among non-blacks MDRD (S/P/Bld) [Vol rate/Area] 87 mL/min/{1.73_m2} Normal >=60 [facility] Comment on above: Result Comment: Repo rted eGFR is based on the CKD-EPI 2020 equation using creatinine, age, and sex. Performed By: #### M GO, C7ED, IPB, CA ####[facility] (DEFAULT)[address] [place] [address] Glucose [Mass/Vol] 194 mg/dL High 70-99 [facility] Comment on above: Performed By: #### Lacho GO C7ED, IPB, CA ####[facility] (DEFAULT)[address] [place] [address] Osmolality [Osmolality] 285 mosm/kg Normal 278-305 [facility] Comment on above: Performed By: #### Lacho GO, C7ED, IPB, CA ####[facility] (DEFAULT)[address] [place] [address] Potassium [Moles/Vol] 4.3 mmol/L Normal 3.5-5.0 [facility] Comment on above: Performed By: #### Lacho GO, C7ED, IPB, CA ####[facility] (DEFAULT)[address] [place] [address] Sodium [Moles/Vol] 132 mmol/L Low 135-145 [facility] Comment on above: Performed By: #### Lacho GO, C7ED, IPB, CA ####[facility] (DEFAULT)[address] [place] [address] Urea nitrogen [Mass/Vol] 15 mg/dL Normal 7-25 [facility] Comment on above: Performed By: #### Lacho GO, C7ED, IPB, CA ####[facility] (DEFAULT)[address] [place] [address] Urea nitrogen/Creatinine [Mass ratio] 15 mg/mg Normal [facility] Comment on above: Performed By: #### M GO, C7ED, IPB, CA ####[facility] (DEFAULT)[address] [place] [address] CREATININE BODY FLUIDOrdered By: Abril Zamudio on 03-16-2024 Creatinine (Body fld) [Mass/Vol] 0.83 mg/dL [facility] Comment on above: Fluid creatinine con centrations that are greater than serum/plasma creatinine concentrations may imply intraperitoneal leakage of urine outside of the urinary tract. CREATININE BODY FLUIDon Creatinine (Body fld) [Mass/Vol] 0.80 mg/dL [facility] Comment on above: Fluid creatinine con centrations that are greater than serum/plasma creatinine concentrations may imply intraperitoneal leakage of urine outside of the urinary tract. Creatinine [Mass/Vol] 0.83 mg/dL Normal [facility] Comment on above: Order Comment: This test has not been cleared or approved by the FDA. The laboratory is regulated under CLIA as qualified to perform high-complexity testing. This test is used for clinical purposes. It should not be regarded as investigational or for research.This test was developed and its performance characteristics determined by the [facility] at [facility]. Result Comment: Flui d creatinine concentrations that are greater than serum/plasma creatinine concentrations may imply intraperitoneal leakage of urine outside of the urinary tract. Performed By: #### F LCREA ####[facility] (DEFAULT)[address] [place] [address] Creatinine [Mass/Vol] 0.80 mg/dL Normal [facility] Comment on above: Order Comment: Leti dodson ROSA MARIA CreatinineThis test has not been cleared or approved by the FDA. The laboratory is regulated under CLIA as qualified to perform high-complexity testing. This test is used for clinical purposes. It should not be regarded as investigational or for research.This test was developed and its performance characteristics determined by the [facility] at [facility]. Result Comment: Flui d creatinine concentrations that are greater than serum/plasma creatinine concentrations may imply intraperitoneal leakage of urine outside of the urinary tract. Performed By: #### F LCREA ####[facility] (DEFAULT)[address] [place] [address] CT ABDOMEN/PELVIS WITH CONTR Louise 03-16-2024 CT ABDOMEN/PELVIS WITH CONTRAST Normal [facility] CT Abdomen and Pelvis W cont rast Seda 03-16-2024 IMPRESSION: 1. Findings including soft tissue gas within the pelvis and scrotum as described in the body of the report. Given the patient's clinical presentation, time since surgery, and overall appearance of this finding, necrotizing infection cannot be excluded. Urgent surgical consultation is recommended. 2. Other findings as detailed in the body of the report. I, Sanya Caban MD have discussed the critical finding/s of findings concerning for gas-forming infection including necrotizing fasciitis/gangrene with MINDA PALMER on 03/16/2024 2:17 PM. I agree with the findings communicated by the resident. I personally viewed and interpreted these images and I have reviewed and approved this report. OLOGY EXAM: CT ABDOMEN/PEL VIS WITH CONTRAST, 03/16/2024 13:59 PM COMPARISON: 01/31/24 CLINICAL INDICATIONS: Right groin pain extending to mid thigh, erythema, concern for NSTI versus obstruction s/p lymphadenectomy for penile cancer 03/05 Extend images to mid thigh; TECHNIQUE: CT scanning was performed of the abdomen and pelvis following the administration of intravenous contrast. PROTOCOL: Standard. CONTRAST: iohexol (OMNIPAQUE) 350 MG/ML injection 1-171 mL; Route of Administration: Intravenous; Dose: 110 mL. FINDINGS: Lung Bases: Multivessel coronary artery disease. Right basilar atelectasis. Lung bases are otherwise unremarkable. Liver: Normal. Gallbladder: Normal. Bile Ducts: Normal in caliber. Spleen: Normal. Pancreas: Normal. Adrenals: Normal. Right Kidney: Normal. No hydronephrosis. Left Kidney: Normal. No hydronephrosis. Gastrointestinal: Normal bowel caliber and wall thickness. Colonic diverticula. Peritoneum/retroperitoneum: Calcified peritoneal nodules (series 2 image [id number]). Lymph nodes: No enlarged or morphologically abnormal lymph nodes. Vasculature: The abdominal aorta is normal in course with atheromatous changes. Patent celiac and superior mesenteric arteries. Patent portal, splenic, and superior mesenteric veins. Bladder: 2Small amount of air in the urinary bladder lumen related to prior limitation. Pelvic Organs: Prostate is enlarged. Body Wall: Postoperative changes from pelvic lymph node dissection. Diffuse air along the right gluteal, lower pelvic, bilateral inguinal, bilateral scrotal, perineum, medial thighs and bilateral popliteal soft tissues which is out of proportion were expected postsurgical air. Overlying significant skin thickening. Bilateral inguinal region fluid collections with drain along the right inguinal collection without peripheral enhancement. Additional drain along the left anterior thigh. Right inguinal collection measures up to 4.4 cm x 3.8 cm (series 2, image 192). Left inguinal collection measures up to 4.2 cm x 2.9 cm (series 2, image 195) Bones: Normal for patient age. No aggressive lesion. RADIOLOGY Christian Lipscomb M D - 03/16/2024 EXAM: CT ABDOMEN/PELVIS WITH CONTRAST, 03/16/2024 13:59 PM COMPARISON: 01/31/24 CLINICAL INDICATIONS: Right groin pain extending to mid thigh, erythema, concern for NSTI versus obstruction s/p lymphadenectomy for penile cancer 03/05 Extend images to mid thigh; TECHNIQUE: CT scanning was performed of the abdomen and pelvis following the administration of intravenous contrast. PROTOCOL: Standard. CONTRAST: iohexol (OMNIPAQUE) 350 MG/ML injection 1-171 mL; Route of Administration: Intravenous; Dose: 110 mL. FINDINGS: Lung Bases: Multivessel coronary artery disease. Right basilar atelectasis. Lung bases are otherwise unremarkable. Liver: Normal. Gallbladder: Normal. Bile Ducts: Normal in caliber. Spleen: Normal. Pancreas: Normal. Adrenals: Normal. Right Kidney: Normal. No hydronephrosis. Left Kidney: Normal. No hydronephrosis. Gastrointestinal: Normal bowel caliber and wall thickness. Colonic diverticula. Peritoneum/retroperitoneum: Calcified peritoneal nodules (series 2 image [id number]). Lymph nodes: No enlarged or morphologically abnormal lymph nodes. Vasculature: The abdominal aorta is normal in course with atheromatous changes. Patent celiac and superior mesenteric arteries. Patent portal, splenic, and superior mesenteric veins. Bladder: 2Small amount of air in the urinary bladder lumen related to prior limitation. Pelvic Organs: Prostate is enlarged. Body Wall: Postoperative changes from pelvic lymph node dissection. Diffuse air along the right gluteal, lower pelvic, bilateral inguinal, bilateral scrotal, perineum, medial thighs and bilateral popliteal soft tissues which is out of proportion were expected postsurgical air. Overlying significant skin thickening. Bilateral inguinal region fluid collections with drain along the right inguinal collection without peripheral enhancement. Additional drain along the left anterior thigh. Right inguinal collection measures up to 4.4 cm x 3.8 cm (series 2, image 192). Left inguinal collection measures up to 4.2 cm x 2.9 cm (series 2, image 195) Bones: Normal for patient age. No aggressive lesion. IMPRESSION IMPRESSION: 1. Findings including soft tissue gas within the pelvis and scrotum as described in the body of the report. Given the patient's clinical presentation, time since surgery, and overall appearance of this finding, necrotizing infection cannot be excluded. Urgent surgical consultation is recommended. 2. Other findings as detailed in the body of the report. ISanya MD have discussed the critical finding/s of findings concerning for gas-forming infection including necrotizing fasciitis/gangrene with MINDA PALMER on 03/16/2024 2:17 PM. I agree with the findings communicated by the resident. I personally viewed and interpreted these images and I have reviewed and approved this report. [facility] Radiology Study observation (narrative) [facility] CT Abdomen and Pelvis W cont rast IVOrdered By: Christian Lipscomb on 03-16-2024 [facility] Work Phone: GLUCOSE POCon 03-16-2024 Glucose [Mass/Vol] 238 mg/dL High 70 - 99 mg/dL [facility] Interpretation and review of laboratory results Abnormal [facility] POC Sample Type CAPBL [facility] Test performed at ad dress of the patient encounter. [facility] LACTATE, WHOLE BLOODon 03-16 Interpretation and review of laboratory results Abnormal [facility] Lactate [Moles/Vol] 2.4 mmol/L High 0.5 - 1. 6 mmol/L [facility] Comment on above: Lactate results >/= 2.0 mmol/L should be followed up with a measurement 2 hours later for patients with suspicion of sepsis. [facility] Lactate, Whole Blood 2.4 mmol/L High 0.5-1.6 [facility] Comment on above: Order Comment: Repea t after second liter of fluids Result Comment: Lact ate results >/= 2.0 mmol/L should be followed up with a measurement 2 hours later for patients with suspicion of sepsis. Performed By: #### B GLACT ####[facility] (DEFAULT)[address] [place] [address] Interpretation and review of laboratory results Abnormal [facility] [facility] Lactate [Moles/Vol] 3.1 mmol/L High 0.5 - 1. 6 mmol/L [facility] Comment on above: Lactate results >/= 2.0 mmol/L should be followed up with a measurement 2 hours later for patients with suspicion of sepsis. [facility] Lactate, Whole Blood 3.1 mmol/L High 0.5-1.6 [facility] Comment on above: Order Comment: Repea t after fluids Result Comment: Lact ate results >/= 2.0 mmol/L should be followed up with a measurement 2 hours later for patients with suspicion of sepsis. Performed By: #### B GLACT ####[facility] (DEFAULT)[address] [place] [address] Interpretation and review of laboratory results Abnormal [facility] Lactate [Moles/Vol] 3.3 mmol/L High 0.5 - 1. 6 mmol/L [facility] Comment on above: Lactate results >/= 2.0 mmol/L should be followed up with a measurement 2 hours later for patients with suspicion of sepsis. [facility] Lactate, Whole Blood 3.3 mmol/L High 0.5-1.6 [facility] Comment on above: Result Comment: Lact ate results >/= 2.0 mmol/L should be followed up with a measurement 2 hours later for patients with suspicion of sepsis. Performed By: #### B GLACT ####[facility] (DEFAULT)[address] [place] [address] MAGNESIUMon 03-16-2024 Magnesium [Mass/Vol] 1.5 mg/dL Low 1.6 - 2.6 mg/dL [facility] Magnesium [Mass/Vol] 1.5 mg/dL Low 1.6-2.6 [facility] Comment on above: Performed By: #### M GO, C7ED, IPB, CA ####[facility] (DEFAULT)[address] [place] [address] No Panel InformationOrdered By: Abril Zamudio on 03-16-2024 This test has not been cleared or approved by the FDA. The laboratory is regulated under CLIA as qualified to perform high-complexity testing. This test is used for clinical purposes. It should not be regarded as investigational or for research. This test was developed and its performance characteristics determined by the Critical Care Laboratory at [facility]. [facility] No Panel Informationon 03-16 Interpretation and review of laboratory results Abnormal [facility] Interpretation and review of laboratory results Normal [facility] PHOSPHATE, INORGANICon 03-16 Phosphate [Mass/Vol] 3.7 mg/dL 2.2 - 4.6 mg/dL [facility] Phosphorous 3.7 mg/dL Normal 2.2-4.6 [facility] Comment on above: Performed By: #### M GO, C7ED, IPB, CA ####[facility] (DEFAULT)[address] [place] [address] URINALYSISOrdered By: Alec Mae on 03-16-2024 Appearance (U) Clear Clear [facility] Bacteria LM Ql (Urine sed) ABSENT ABSENT [facility] Color (U) Yellow Yellow [facility] Epithelial cells.squamous LM Ql (Urine sed) 0-2/hpf 0-2/hpf, 3-5/hpf = 1+ [facility] Glucose Test strip (U) [Mass/Vol] 250 mg/dL Abnormal Negative [facility] Interpretation and review of laboratory results Abnormal [facility] Ketones (U) [Mass/Vol] Negative Negative [facility] Leukocyte esterase Test strip Ql (U) Negative Negative [facility] Nitrite Ql (U) Negative Negative [facility] pH (U) 5.5 [pH] 5.0 - 7.0 [facility] Protein (U) [Mass/Vol] Trace Abnormal Negative [facility] RBC (U) [#/Vol] Negative Negative [facility] RBC LM.HPF (Urine sed) [#/Area] 0-2 [facility] Specific gravity (U) [Rel density] High 1.001 - 1.035 [facility] Urobilinogen (U) [Mass/Vol] 0.2 E.U./dL 0.2 E.U/dL, 1.0 E.U/dL [facility] WBC LM.HPF (Urine sed) [#/Area] 11 - 20 Abnormal [facility] URINALYSISon 03-16-2024 Appearance (U) Clear Normal Clear [facility] Comment on above: Performed By: #### U RIN ####[facility] (DEFAULT)[address] [place] [address] Bacteria ABSENT Normal ABSENT [facility] Comment on above: Performed By: #### U RIN ####[facility] (DEFAULT)[address] [place] [address] Blood Urine Negative Normal Negative [facility] Comment on above: Performed By: #### U RIN ####[facility] (DEFAULT)[address] [place] [address], [place] [address] Color (U) Yellow Normal Yellow [facility] Comment on above: Performed By: #### U RIN ####[facility] (DEFAULT)[address] [place] [address] Glucose Ql (U) 250 mg/dL Abnormal Negative [facility] Comment on above: Performed By: #### U RIN ####[facility] (DEFAULT)[address] [place] [address] Ketones Ql (U) Negative Normal Negative [facility] Comment on above: Performed By: #### U RIN ####[facility] (DEFAULT)[address] [place] [address] Leukocyte esterase Test strip Ql (U) Negative Normal Negative [facility] Comment on above: Performed By: #### U RIN ####[facility] (DEFAULT)[address] [place] [address] Nitrites Urine Negative Normal Negative [facility] Comment on above: Performed By: #### U RIN ####[facility] (DEFAULT)[address] [place] [address] pH (U) 5.5 [pH] Normal 5.0-7.0 [facility] Comment on above: Performed By: #### U RIN ####[facility] (DEFAULT)[address] [place] [address] Protein Urine Trace Abnormal Negative [facility] Comment on above: Performed By: #### U RIN ####[facility] (DEFAULT)[address] [place] [address] RBC Urine 0-2 Normal 0-2 [facility] Comment on above: Performed By: #### U RIN ####[facility] (DEFAULT)[address] [place] [address] Specific Dodson Urine > High 1.001-1.035 [facility] Comment on above: Performed By: #### U RIN ####[facility] (DEFAULT)[address] [place] [address] Squamous/Epithelial Cells 0-2/hpf Normal 0-2/hpf, 3-5/hpf = 1+ [facility] Comment on above: Performed By: #### U RIN ####[facility] (DEFAULT)[address] [place] [address] Urobilinogen Urine 0.2 E.U./dL Normal 0.2 E.U/d L, 1.0 E.U/dL [facility] Comment on above: Performed By: #### U RIN ####[facility] (DEFAULT)[address] [place] [address] WBC Urine 11 - 20 Abnormal 0 - 5 [facility] Comment on above: Performed By: #### U RIN ####[facility] (DEFAULT)[address] [place] [address] URINE CULTUREon 03-16-2024 Bacteria identified Cx Nom (U) No Growth Normal [facility] Comment on above: Order Comment: For i ndwelling catheters, specimen collection is acceptable on catheter day 1 and 2 only. Meyer top vacutainer. Urine must be to the fill line to process (4mls). If minimum volume, send urine in a yellow top vacutainer tube. Performed By: #### U R ####[facility] (DEFAULT)[address] [place] [address] CBC-Complete Blood Cnt No Di ffon 03-09-2024 Erythrocyte distribution width (RBC) [Ratio] 13.1 % Normal 11.6-14.6 [facility] Comment on above: Performed By: #### L 100.0500 #### [facility] [address] [place], [address] Hematocrit (Bld) [Volume fraction] 36.9 % Low 40-54 [facility] Comment on above: Performed By: #### L 100.0500 #### [facility] [address] [place], [address] Hemoglobin (Bld) [Mass/Vol] 12.6 g/dL Low 13.0-16.5 [facility] Comment on above: Performed By: #### L 100.0500 #### [facility] [address] [place], [address] MCH (RBC) [Entitic mass] 29.7 pg Normal 27.0-32.0 [facility] Comment on above: Performed By: #### L 100.0500 #### [facility] [address] [place], [address] MCHC (RBC) [Mass/Vol] 34.1 g/dL Normal 32-36 [facility] Comment on above: Performed By: #### L 100.0500 #### [facility] [address] [place], [address] MCV (RBC) [Entitic vol] 87.0 fL Normal 80-94 [facility] Comment on above: Performed By: #### L 100.0500 #### [facility] [address] [place], [address] Platelet mean volume (Bld) [Entitic vol] 9.0 fL Normal 6.2-12.0 [facility] Comment on above: Performed By: #### L 100.0500 #### [facility] [address] [place], [address] Platelets (Bld) [#/Vol] 223 10*3/uL Normal 150-450 [facility] Comment on above: Performed By: #### L 100.0500 #### [facility] [address] [place], [address] RBC (Bld) [#/Vol] 4.24 10*6/uL Low 4.6-6.2 [facility] Comment on above: Performed By: #### L 100.0500 #### [facility] [address] [place], [address] RDW SD 40.9 fl Normal 35.1-43.9 [facility] Comment on above: Performed By: #### L 100.0500 #### [facility] [address] [place], [address] WBC (Bld) [#/Vol] 7.1 10*3/uL Normal 4.4-11.0 [facility] Comment on above: Performed By: #### L 100.0500 #### [facility] [address] [place], [address] CALCIUMon 03-06-2024 Calcium [Mass/Vol] 8.9 mg/dL 8.6 - 10. 5 mg/dL [facility] Calcium [Mass/Vol] 8.9 mg/dL Normal 8.6-10.5 [facility] Comment on above: Performed By: #### C A, MGO, CHM7, IPB ####[facility] (DEFAULT)[address] [place] [address] CBC,PLATELETSon 03-06-2024 Erythrocyte distribution width (RBC) [Ratio] 13.1 % 10.9 - 14.3 % [facility] Hematocrit (Bld) [Volume fraction] 36.1 % Low 39.6 - 48.8 % [facility] Hemoglobin (Bld) [Mass/Vol] 12.4 g/dL Low 13.4 - 16.8 g/dL [facility] Interpretation and review of laboratory results Abnormal [facility] MCH (RBC) [Entitic mass] 30.0 pg 26.1 - 33.3 pg [facility] MCHC (RBC) [Mass/Vol] 34.3 g/dL 31.9 - 36.5 g/dL [facility] MCV (RBC) [Entitic vol] 87.4 fL 79.0 - 94.5 fL [facility] Platelet mean volume (Bld) [Entitic vol] 9.0 fL 8.7 - 12.3 fL [facility] Platelets (Bld) [#/Vol] 187 10*3/uL 146 - 337 K/uL [facility] RBC (Bld) [#/Vol] 4.13 10*6/uL Low [facility] WBC (Bld) [#/Vol] 12.15 10*3/uL High 3.73 - 10 .10 K/uL [facility] Hematocrit (Bld) [Volume fraction] 36.1 % Low 39.6-48.8 [facility] Comment on above: Performed By: #### H [facility] ####[facility] (DEFAULT)[address] [place] [address] Hemoglobin (Bld) [Mass/Vol] 12.4 g/dL Low 13.4-16.8 [facility] Comment on above: Performed By: #### H EMOGC ####[facility] (DEFAULT)[address] [place] [address] MCV (RBC) [Entitic vol] 87.4 fL Normal 79.0-94.5 [facility] Comment on above: Performed By: #### H EMOGC ####[facility] (DEFAULT)[address] [place] [address] Mean Cell Hgb 30.0 pg Normal 26.1-33.3 [facility] Comment on above: Performed By: #### H EMOGC ####[facility] (DEFAULT)[address] [facility] [place] [address] Mean Cell Hgb Conc 34.3 g/dL Normal 31.9-36.5 [facility] Comment on above: Performed By: #### H EMOGC ####[facility] (DEFAULT)[address] [facility] [place] [address] Platelet mean volume (Bld) [Entitic vol] 9.0 fL Normal 8.7-12.3 [facility] Comment on above: Performed By: #### H EMOGC ####[facility] (DEFAULT)[address] [place] [address] Platelets (Bld) [#/Vol] 187 10*3/uL Normal 146-337 [facility] Comment on above: Performed By: #### H EMOGC ####[facility] (DEFAULT)[address] [place] [address] RBC (Bld) [#/Vol] 4.13 10*6/uL Low 4.38-5.83 [facility] Comment on above: Performed By: #### H EMOGC ####[facility] (DEFAULT)[address] [facility] [place] [address] RBC Distribution 13.1 % Normal 10.9-14.3 [facility] Comment on above: Performed By: #### H [facility] ####[facility] (DEFAULT)[address] [place] [address] WBC (Bld) [#/Vol] 12.15 10*3/uL High 3.73-10.10 [facility] Comment on above: Performed By: #### H [facility] ####[facility] (DEFAULT)[address] [place] [address] CHEM 7 (LYTES,BUN,CREA,GLUC) on 03-06-2024 Anion gap [Moles/Vol] 14 mmol/L 7 - 17 mmol/L [facility] Chloride [Moles/Vol] 102 mmol/L 98 - 108 mmol/L [facility] CO2 [Moles/Vol] 22 mmol/L 21 - 31 mmol/L [facility] Creatinine [Mass/Vol] 0.98 mg/dL 0.70 - 1.30 mg/dL [facility] eGFR, CKD-EPI, Male 89 - PINF [facility] Comment on above: Reported eGFR is bas ed on the CKD-EPI 2020 equation using creatinine, age, and sex. Glucose [Mass/Vol] 266 mg/dL High 70 - 99 mg/dL [facility] Interpretation and review of laboratory results Abnormal [facility] Osmolality Calc [Osmolality] 292 [facility] Potassium [Moles/Vol] 4.5 mmol/L 3.5 - 5.0 mmol/L [facility] Sodium [Moles/Vol] 133 mmol/L Low 135 - 145 mmol/L [facility] Urea nitrogen [Mass/Vol] 15 mg/dL 7 - 25 mg/dL [facility] Urea nitrogen/Creatinine [Mass ratio] 15 mg/mg [facility] Anion gap [Moles/Vol] 14 mmol/L Normal 7-17 [facility] Comment on above: Performed By: #### C A, MGO, CHM7, IPB ####[facility] (DEFAULT)[address] [place] [address] Chloride [Moles/Vol] 102 mmol/L Normal 98-108 [facility] Comment on above: Performed By: #### Valentino Hernandez MGO CHM7, IPB ####[facility] (DEFAULT)[address] [place] [address] CO2 [Moles/Vol] 22 mmol/L Normal 21-31 [facility] Comment on above: Performed By: #### Valentino Hernandez MGO, CHM7, IPB ####[facility] (DEFAULT)[address] [facility] [place] [address] Creatinine [Mass/Vol] 0.98 mg/dL Normal 0.70-1.30 [facility] Comment on above: Performed By: #### Valentino Hernandez MGO CHM7, IPB ####[facility] (DEFAULT)[address] [place] [address], [place] [address] GFR/1.73 sq M.predicted among non-blacks MDRD (S/P/Bld) [Vol rate/Area] 89 mL/min/{1.73_m2} Normal >=60 [facility] Comment on above: Result Comment: Repo rted eGFR is based on the CKD-EPI 2020 equation using creatinine, age, and sex. Performed By: #### Valentino Hernandez MGO CHM7, IPB ####[facility] (DEFAULT)[address] [place] [address], [place] [address] Glucose [Mass/Vol] 266 mg/dL High 70-99 [facility] Comment on above: Performed By: #### Valentino Hernandez MGO CHM7, IPB ####[facility] (DEFAULT)[address] [place] [address] Osmolality [Osmolality] 292 mosm/kg Normal 278-305 [facility] Comment on above: Performed By: #### Valentino Hernandez MGO, CHM7, IPB ####[facility] (DEFAULT)[address] [facility] [place] [address] Potassium [Moles/Vol] 4.5 mmol/L Normal 3.5-5.0 [facility] Comment on above: Performed By: #### C A, MGO, CHM7, IPB ####[facility] (DEFAULT)[address] [place] [address] Sodium [Moles/Vol] 133 mmol/L Low 135-145 [facility] Comment on above: Performed By: #### C A, MGO, CHM7, IPB ####[facility] (DEFAULT)[address] [facility] [place] [address] Urea nitrogen [Mass/Vol] 15 mg/dL Normal 7-25 [facility] Comment on above: Performed By: #### Valentino A, MGO, CHM7, IPB ####[facility] (DEFAULT)[address] [place] [address] Urea nitrogen/Creatinine [Mass ratio] 15 mg/mg Normal [facility] Comment on above: Performed By: #### C A, MGO, CHM7, IPB ####[facility] (DEFAULT)[address] [facility] [place] [address] GLUCOSE POCon 03-06-2024 Glucose [Mass/Vol] 216 mg/dL High 70 - 99 mg/dL [facility] Interpretation and review of laboratory results Abnormal [facility] POC Sample Type CAPBL [facility] Test performed at ad dress of the patient encounter. [facility] Glucose [Mass/Vol] 198 mg/dL High 70 - 99 mg/dL [facility] Interpretation and review of laboratory results Abnormal [facility] POC Sample Type CAPBL [facility] Test performed at ad dress of the patient encounter. [facility] MAGNESIUMon 03-06-2024 Magnesium [Mass/Vol] 2.4 mg/dL 1.6 - 2.6 mg/dL [facility] Magnesium [Mass/Vol] 2.4 mg/dL Normal 1.6-2.6 [facility] Comment on above: Performed By: #### DIPIT Reddy CHM7, IPB ####[facility] (DEFAULT)[address] [place] [address] No Panel Informationon 03-06 Interpretation and review of laboratory results Normal [facility] PHOSPHATE, INORGANICon 03-06 Phosphate [Mass/Vol] 2.5 mg/dL 2.2 - 4.6 mg/dL [facility] Phosphorous 2.5 mg/dL Normal 2.2-4.6 [facility] Comment on above: Performed By: #### DIPTI Reddy CHM7, IPB ####[facility] (DEFAULT)[address] [place] [address] PT,INR,PTTon 03-06-2024 aPTT Coag (PPP) [Time] 27.8 s [facility] INR Coag (Bld) [Relative time] 1.1 {INR} 0.9 - 1.1 [facility] Interpretation and review of laboratory results Normal [facility] PT Coag (PPP) [Time] 13.9 s [facility] aPTT Coag (Bld) [Time] 27.8 s Normal 24.0-34.3 [facility] Comment on above: Performed By: #### P TPTT ####[facility] (DEFAULT)[address] [place] [address] INR Coag (PPP) [Relative time] 1.1 {INR} Normal 0.9-1.1 [facility] Comment on above: Performed By: #### P TPTT ####[facility] (DEFAULT)[address] [place] [address] PT Coag (PPP) [Time] 13.9 s Normal 11.9-14.2 [facility] Comment on above: Performed By: #### P TPTT ####[facility] (DEFAULT)[address] [place] [address] ABORH TYPE RECONFIRMATIONon 03-05-2024 ABO/RH(D) TYPE Positive [facility] ABO/RH(D) TYPE Positive Normal [facility] Comment on above: Performed By: #### T YPEC ####[facility] (DEFAULT)[address] [place] [address] CALCIUMon 03-05-2024 Calcium [Mass/Vol] 8.5 mg/dL Low 8.6 - 10. 5 mg/dL [facility] Calcium [Mass/Vol] 8.5 mg/dL Low 8.6-10.5 [facility] Comment on above: Performed By: #### C A, MGO, IPB, CHM7 ####[facility] (DEFAULT)[address] [place] [address] CBC AND ELECTRONIC DIFFon Basophils (Bld) [#/Vol] 0.04 10*3/uL 0.00 - 0.09 K/uL [facility] Basophils/100 WBC (Bld) 0.4 % [facility] Differential cell count method Nom (Bld) Electronic Differential [facility] Eosinophils (Bld) [#/Vol] K/uL 0.00 - 0.48 K/uL [facility] Eosinophils/100 WBC (Bld) 0.2 % [facility] Erythrocyte distribution width (RBC) [Ratio] 13.3 % 10.9 - 14.3 % [facility] Hematocrit (Bld) [Volume fraction] 36.9 % Low 39.6 - 48.8 % [facility] Hemoglobin (Bld) [Mass/Vol] 12.6 g/dL Low 13.4 - 16.8 g/dL [facility] Immature granulocytes (Bld) [#/Vol] 0.04 10*3/uL NINF - 0.07 K/uL [facility] Immature granulocytes/100 WBC (Bld) 0.4 % [facility] Interpretation and review of laboratory results Abnormal [facility] Lymphocytes (Bld) [#/Vol] 1.22 10*3/uL 0.83 - 3.57 K/uL [facility] Lymphocytes/100 WBC (Bld) 11.3 % [facility] MCH (RBC) [Entitic mass] 30.4 pg 26.1 - 33.3 pg [facility] MCHC (RBC) [Mass/Vol] 34.1 g/dL 31.9 - 36.5 g/dL [facility] MCV (RBC) [Entitic vol] 88.9 fL 79.0 - 94.5 fL [facility] Monocytes (Bld) [#/Vol] 0.18 10*3/uL Low 0.24 - 0.93 K/uL [facility] Monocytes/100 WBC (Bld) 1.7 % [facility] Neutrophils (Bld) [#/Vol] 9.33 10*3/uL High 1.57 - 6.19 K/uL [facility] Nucleated RBC/100 WBC (Bld) [Ratio] 0.0 % [facility] Platelet mean volume (Bld) [Entitic vol] 9.1 fL 8.7 - 12.3 fL [facility] Platelets (Bld) [#/Vol] 179 10*3/uL 146 - 337 K/uL [facility] RBC (Bld) [#/Vol] 4.15 10*6/uL Low [facility] Segmented neutrophils/100 WBC (Bld) 86.0 % [facility] WBC (Bld) [#/Vol] 10.83 10*3/uL High 3.73 - 10 .10 K/uL [facility] Abs Eos Auto < Normal 0.00-0.48 [facility] Comment on above: Performed By: #### L [id number] ####[facility] (DEFAULT)[address] [place] [address] Basophils (Bld) [#/Vol] 0.04 10*3/uL Normal 0.00-0.09 [facility] Comment on above: Performed By: #### L [id number] ####[facility] (DEFAULT)[address] [place] [address] Basophils/100 WBC (Bld) 0.4 % Normal [facility] Comment on above: Performed By: #### L [id number] ####[facility] (DEFAULT)[address] [facility] [place] [address] DIFF STATUS Electronic Differential Normal [facility] Comment on above: Performed By: #### L [id number] ####[facility] (DEFAULT)[address] [facility] [place] [address] Eosinophils/100 WBC (Bld) 0.2 % Normal [facility] Comment on above: Performed By: #### L [id number] ####[facility] (DEFAULT)[address] [place] [address] Hematocrit (Bld) [Volume fraction] 36.9 % Low 39.6-48.8 [facility] Comment on above: Performed By: #### L [id number] ####[facility] (DEFAULT)[address] [place] [address] Hemoglobin (Bld) [Mass/Vol] 12.6 g/dL Low 13.4-16.8 [facility] Comment on above: Performed By: #### L [id number] ####[facility] (DEFAULT)[address] [place] [address] Immature Grans % 0.4 % Normal [facility] Comment on above: Performed By: #### L [id number] ####[facility] (DEFAULT)[address] [place] [address] Immature Grans Absolute 0.04 K/uL Normal <=0.07 [facility] Comment on above: Performed By: #### L [id number] ####[facility] (DEFAULT)[address] [place] [address] Lymphocytes (Bld) [#/Vol] 1.22 10*3/uL Normal 0.83-3.57 [facility] Comment on above: Performed By: #### L [id number] ####[facility] (DEFAULT)[address] [place] [address] Lymphocytes/100 WBC (Bld) 11.3 % Normal [facility] Comment on above: Performed By: #### L [id number] ####[facility] (DEFAULT)[address] [place] [address] MCV (RBC) [Entitic vol] 88.9 fL Normal 79.0-94.5 [facility] Comment on above: Performed By: #### L [id number] ####[facility] (DEFAULT)[address] [place] [address] Mean Cell Hgb 30.4 pg Normal 26.1-33.3 [facility] Comment on above: Performed By: #### L [id number] ####[facility] (DEFAULT)[address] [place] [address] Mean Cell Hgb Conc 34.1 g/dL Normal 31.9-36.5 [facility] Comment on above: Performed By: #### L [id number] ####[facility] (DEFAULT)[address] [place] [address] Monocytes (Bld) [#/Vol] 0.18 10*3/uL Low 0.24-0.93 [facility] Comment on above: Performed By: #### L [id number] ####[facility] (DEFAULT)[address] [place] [address] Monocytes/100 WBC (Bld) 1.7 % Normal [facility] Comment on above: Performed By: #### L [id number] ####[facility] (DEFAULT)[address] [place] [address] Nucleated RBC 0.0 /100 WBC Normal <=0.2 [facility] Comment on above: Performed By: #### L [id number] ####[facility] (DEFAULT)[address] [place] [address] Platelet mean volume (Bld) [Entitic vol] 9.1 fL Normal 8.7-12.3 [facility] Comment on above: Performed By: #### L [id number] ####[facility] (DEFAULT)[address] [place] [address] Platelets (Bld) [#/Vol] 179 10*3/uL Normal 146-337 [facility] Comment on above: Performed By: #### L [id number] ####[facility] (DEFAULT)[address] [place] [address] RBC (Bld) [#/Vol] 4.15 10*6/uL Low 4.38-5.83 [facility] Comment on above: Performed By: #### L [id number] ####[facility] (DEFAULT)[address] [place] [address] RBC Distribution 13.3 % Normal 10.9-14.3 [facility] Comment on above: Performed By: #### L [id number] ####[facility] (DEFAULT)[address] [place] [address] Segs + Bands Auto 86.0 % Normal [facility] Comment on above: Performed By: #### L [id number] ####[facility] (DEFAULT)[address] [place] [address] Segs + Bands,Absolute Auto 9.33 K/uL High 1.57-6.19 [facility] Comment on above: Performed By: #### L [id number] ####[facility] (DEFAULT)[address] [place] [address] WBC (Bld) [#/Vol] 10.83 10*3/uL High 3.73-10.10 [facility] Comment on above: Performed By: #### [facility] ####[facility] (DEFAULT)[address] [place] [address] CBC,PLATELETSon 03-05-2024 Erythrocyte distribution width (RBC) [Ratio] 13.2 % 10.9 - 14.3 % [facility] Hematocrit (Bld) [Volume fraction] 38.4 % Low 39.6 - 48.8 % [facility] Hemoglobin (Bld) [Mass/Vol] 13.3 g/dL Low 13.4 - 16.8 g/dL [facility] Interpretation and review of laboratory results Abnormal [facility] MCH (RBC) [Entitic mass] 29.9 pg 26.1 - 33.3 pg [facility] MCHC (RBC) [Mass/Vol] 34.6 g/dL 31.9 - 36.5 g/dL [facility] MCV (RBC) [Entitic vol] 86.3 fL 79.0 - 94.5 fL [facility] Platelet mean volume (Bld) [Entitic vol] 9.0 fL 8.7 - 12.3 fL [facility] Platelets (Bld) [#/Vol] 189 10*3/uL 146 - 337 K/uL [facility] RBC (Bld) [#/Vol] 4.45 10*6/uL [facility] WBC (Bld) [#/Vol] 5.09 10*3/uL 3.73 - 10. 10 K/uL [facility] Hematocrit (Bld) [Volume fraction] 38.4 % Low 39.6-48.8 [facility] Comment on above: Performed By: #### [facility] ####[facility] (DEFAULT)[address] [place] [address] Hemoglobin (Bld) [Mass/Vol] 13.3 g/dL Low 13.4-16.8 [facility] Comment on above: Performed By: #### H EMOGC ####[facility] (DEFAULT)[address] [place] [address] MCV (RBC) [Entitic vol] 86.3 fL Normal 79.0-94.5 [facility] Comment on above: Performed By: #### H EMOGC ####[facility] (DEFAULT)[address] [place] [address] Mean Cell Hgb 29.9 pg Normal 26.1-33.3 [facility] Comment on above: Performed By: #### H EMOGC ####[facility] (DEFAULT)[address] [place] [address] Mean Cell Hgb Conc 34.6 g/dL Normal 31.9-36.5 [facility] Comment on above: Performed By: #### H EMOGC ####[facility] (DEFAULT)[address] [place] [address] Platelet mean volume (Bld) [Entitic vol] 9.0 fL Normal 8.7-12.3 [facility] Comment on above: Performed By: #### H EMOGC ####[facility] (DEFAULT)[address] [place] [address] Platelets (Bld) [#/Vol] 189 10*3/uL Normal 146-337 [facility] Comment on above: Performed By: #### H EMOGC ####[facility] (DEFAULT)[address] [place] [address] RBC (Bld) [#/Vol] 4.45 10*6/uL Normal 4.38-5.83 [facility] Comment on above: Performed By: #### H EMOGC ####[facility] (DEFAULT)[address] [place] [address] RBC Distribution 13.2 % Normal 10.9-14.3 [facility] Comment on above: Performed By: #### H EMOGC ####[facility] (DEFAULT)[address] [place] [address] WBC (Bld) [#/Vol] 5.09 10*3/uL Normal 3.73-10.10 [facility] Comment on above: Performed By: #### H [facility] ####[facility] (DEFAULT)[address] [place] [address] CHEM 7 (LYTES,BUN,CREA,GLUC) on 03-05-2024 Anion gap [Moles/Vol] 16 mmol/L 7 - 17 mmol/L [facility] Chloride [Moles/Vol] 104 mmol/L 98 - 108 mmol/L [facility] CO2 [Moles/Vol] 19 mmol/L Low 21 - 31 mmol/L [facility] Creatinine [Mass/Vol] 1.10 mg/dL 0.70 - 1.30 mg/dL [facility] eGFR, CKD-EPI, Male 78 - PINF [facility] Comment on above: Reported eGFR is bas ed on the CKD-EPI 2020 equation using creatinine, age, and sex. Glucose [Mass/Vol] 195 mg/dL High 70 - 99 mg/dL [facility] Osmolality Calc [Osmolality] 291 [facility] Potassium [Moles/Vol] 5.1 mmol/L High 3.5 - 5.0 mmol/L [facility] Sodium [Moles/Vol] 134 mmol/L Low 135 - 145 mmol/L [facility] Urea nitrogen [Mass/Vol] 16 mg/dL 7 - 25 mg/dL [facility] Urea nitrogen/Creatinine [Mass ratio] 15 mg/mg [facility] Anion gap [Moles/Vol] 16 mmol/L Normal 7-17 [facility] Comment on above: Performed By: #### C A, MGO, IPB, CHM7 ####[facility] (DEFAULT)[address] [place] [address] Chloride [Moles/Vol] 104 mmol/L Normal 98-108 [facility] Comment on above: Performed By: #### Valentino Hernandez MGIsabelle IPB, CHM7 ####[facility] (DEFAULT)[address] [place] [address] CO2 [Moles/Vol] 19 mmol/L Low 21-31 [facility] Comment on above: Performed By: #### Valentino eHrnandez MGIsabelle IPB, CHM7 ####[facility] (DEFAULT)[address] [place] [address] Creatinine [Mass/Vol] 1.10 mg/dL Normal 0.70-1.30 [facility] Comment on above: Performed By: #### Valentino Hernandez MGIsabelle IPB, CHM7 ####[facility] (DEFAULT)[address] [place] [address] GFR/1.73 sq M.predicted among non-blacks MDRD (S/P/Bld) [Vol rate/Area] 78 mL/min/{1.73_m2} Normal >=60 [facility] Comment on above: Result Comment: Repo rted eGFR is based on the CKD-EPI 2020 equation using creatinine, age, and sex. Performed By: #### DIPTI Reddy IPB, CHM7 ####[facility] (DEFAULT)[address] [place] [address] Glucose [Mass/Vol] 195 mg/dL High 70-99 [facility] Comment on above: Performed By: #### Valentino Hernandez MGO IPB, CHM7 ####[facility] (DEFAULT)[address] [place] [address] Osmolality [Osmolality] 291 mosm/kg Normal 278-305 [facility] Comment on above: Performed By: #### Valentino Hernandez, MGO, IPB, CHM7 ####[facility] (DEFAULT)[address] [place] [address] Potassium [Moles/Vol] 5.1 mmol/L High 3.5-5.0 [facility] Comment on above: Performed By: #### DIPTI Reddy IPB, CHM7 ####[facility] (DEFAULT)[address] [place] [address] Sodium [Moles/Vol] 134 mmol/L Low 135-145 [facility] Comment on above: Performed By: #### DIPTI Reddy IPB, CHM7 ####[facility] (DEFAULT)[address] [place] [address] Urea nitrogen [Mass/Vol] 16 mg/dL Normal 7-25 [facility] Comment on above: Performed By: #### DIPTI Reddy IPB, CHM7 ####[facility] (DEFAULT)[address] [facility] [place] [address] Urea nitrogen/Creatinine [Mass ratio] 15 mg/mg Normal [facility] Comment on above: Performed By: #### DIPTI Reddy IPB, CHM7 ####[facility] (DEFAULT)[address] [facility] [place] [address] Anion gap [Moles/Vol] 15 mmol/L 7 - 17 mmol/L [facility] Chloride [Moles/Vol] 105 mmol/L 98 - 108 mmol/L [facility] CO2 [Moles/Vol] 18 mmol/L Low 21 - 31 mmol/L [facility] Creatinine [Mass/Vol] 0.91 mg/dL 0.70 - 1.30 mg/dL [facility] eGFR, CKD-EPI, Male - PINF [facility] Comment on above: Reported eGFR is bas ed on the CKD-EPI 2020 equation using creatinine, age, and sex. Glucose [Mass/Vol] 168 mg/dL High 70 - 99 mg/dL [facility] Interpretation and review of laboratory results Abnormal [facility] Osmolality Calc [Osmolality] 287 [facility] Potassium [Moles/Vol] 5.0 mmol/L 3.5 - 5.0 mmol/L [facility] Comment on above: Specimen hemolyzed. Potassium results may be falsely elevated. Interpret within clinical context. Sodium [Moles/Vol] 133 mmol/L Low 135 - 145 mmol/L [facility] Urea nitrogen [Mass/Vol] 15 mg/dL 7 - 25 mg/dL [facility] Urea nitrogen/Creatinine [Mass ratio] 16 mg/mg [facility] Anion gap [Moles/Vol] 15 mmol/L Normal 7-17 [facility] Comment on above: Performed By: #### C HM7 ####[facility] (DEFAULT)[address] [place] [address] Chloride [Moles/Vol] 105 mmol/L Normal 98-108 [facility] Comment on above: Performed By: #### C HM7 ####[facility] (DEFAULT)[address] [place] [address] CO2 [Moles/Vol] 18 mmol/L Low 21-31 [facility] Comment on above: Performed By: #### C HM7 ####[facility] (DEFAULT)[address] [place] [address] Creatinine [Mass/Vol] 0.91 mg/dL Normal 0.70-1.30 [facility] Comment on above: Performed By: #### C HM7 ####[facility] (DEFAULT)[address] [place] [address] eGFR, CKD-EPI, Male > Normal >=60 [facility] Comment on above: Result Comment: Repo rted eGFR is based on the CKD-EPI 2020 equation using creatinine, age, and sex. Performed By: #### C HM7 ####[facility] (DEFAULT)[address] [place] [address] Glucose [Mass/Vol] 168 mg/dL High 70-99 [facility] Comment on above: Performed By: #### C HM7 ####[facility] (DEFAULT)[address] [place] [address] Osmolality [Osmolality] 287 mosm/kg Normal 278-305 [facility] Comment on above: Performed By: #### C HM7 ####[facility] (DEFAULT)[address] [place] [address] Potassium [Moles/Vol] 5.0 mmol/L Normal 3.5-5.0 [facility] Comment on above: Result Comment: Spec imen hemolyzed. Potassium results may be falsely elevated. Interpret within clinical context. Performed By: #### C HM7 ####[facility] (DEFAULT)[address] [place] [address] Sodium [Moles/Vol] 133 mmol/L Low 135-145 [facility] Comment on above: Performed By: #### C HM7 ####[facility] (DEFAULT)[address] [place] [address] Urea nitrogen [Mass/Vol] 15 mg/dL Normal 7-25 [facility] Comment on above: Performed By: #### C HM7 ####[facility] (DEFAULT)[address] [place] [address] Urea nitrogen/Creatinine [Mass ratio] 16 mg/mg Normal [facility] Comment on above: Performed By: #### C HM7 ####[facility] (DEFAULT)[address] [place] [address], [place] [address] CONTINUOUS CARDIAC MONITORIN G STRIPon 03-05-2024 [facility] CONTINUOUS CARDIAC MONITORIN G STRIPOrdered By: Unassigned Pacs on 03-05-2024 [facility] Work Phone: GLUCOSE POCon 03-05-2024 Glucose [Mass/Vol] 248 mg/dL High 70 - 99 mg/dL [facility] Interpretation and review of laboratory results Abnormal [facility] POC Sample Type CAPBL [facility] Test performed at ad dress of the patient encounter. [facility] Glucose [Mass/Vol] 172 mg/dL High 70 - 99 mg/dL [facility] Interpretation and review of laboratory results Abnormal [facility] POC Sample Type CAPBL [facility] Test performed at ad dress of the patient encounter. [facility] Glucose [Mass/Vol] 183 mg/dL High 70 - 99 mg/dL [facility] Interpretation and review of laboratory results Abnormal [facility] POC Sample Type CAPBL [facility] Test performed at ad dress of the patient encounter. [facility] Glucose [Mass/Vol] 206 mg/dL High 70 - 99 mg/dL [facility] Interpretation and review of laboratory results Abnormal [facility] POC Sample Type CAPBL [facility] Test performed at ad dress of the patient encounter. [facility] Glucose [Mass/Vol] 135 mg/dL High 70 - 99 mg/dL [facility] Interpretation and review of laboratory results Abnormal [facility] POC Sample Type [facility] Test performed at ad dress of the patient encounter. [facility] Glucose [Mass/Vol] 146 mg/dL High 70 - 99 mg/dL [facility] Interpretation and review of laboratory results Abnormal [facility] POC Sample Type CAPBL [facility] Test performed at ad dress of the patient encounter. [facility] MAGNESIUMon 03-05-2024 Magnesium [Mass/Vol] 1.6 mg/dL 1.6 - 2.6 mg/dL [facility] Magnesium [Mass/Vol] 1.6 mg/dL Normal 1.6-2.6 [facility] Comment on above: Performed By: #### C A, MGO, IPB, CHM7 ####[facility] (DEFAULT)[address] [place] [address] No Panel Informationon 03-05 Interpretation and review of laboratory results Abnormal [facility] Interpretation and review of laboratory results Normal [facility] PHOSPHATE, INORGANICon 03-05 Phosphate [Mass/Vol] 3.0 mg/dL 2.2 - 4.6 mg/dL [facility] Phosphorous 3.0 mg/dL Normal 2.2-4.6 [facility] Comment on above: Performed By: #### C A, MGO, IPB, CHM7 ####[facility] (DEFAULT)[address] [place] [address] PT,INR,PTTon 03-05-2024 aPTT Coag (PPP) [Time] 28.9 s [facility] INR Coag (Bld) [Relative time] 1.0 {INR} 0.9 - 1.1 [facility] Interpretation and review of laboratory results Normal [facility] PT Coag (PPP) [Time] 13.0 s [facility] aPTT Coag (Bld) [Time] 28.9 s Normal 24.0-34.3 [facility] Comment on above: Performed By: #### P TPTT ####[facility] (DEFAULT)[address] [place] [address] INR Coag (PPP) [Relative time] 1.0 {INR} Normal 0.9-1.1 [facility] Comment on above: Performed By: #### P TPTT ####[facility] (DEFAULT)[address] [place] [address] PT Coag (PPP) [Time] 13.0 s Normal 11.9-14.2 [facility] Comment on above: Performed By: #### P TPTT ####[facility] (DEFAULT)[address] [place] [address] SURG PATH REQUESTon 03-05-20 Case Report Normal [facility] Comment on above: Result Comment: Surg ical Pathology Report Case: [id number] Provider: Izaiah Maurer MD Collected: 03/05/2024 03:04 PMOrdering [facility] Received: 03/06/2024 08:14 AMPathologist: JENNA Penningtonpecimens: A) - SURG PATH, Right Inguinal Lymph Nodes B) - SURG PATH, Left Inguinal Lymph Nodes Performed By: #### S URGP ####[facility] (DEFAULT)[address] [place] [address] Clinical History Preop: Malignant jeremy plasm of penis. History: Benign essential hypertension. Diabetes mellitus. Melanoma. Pulmonary embolism. Penile cancer. Hyperlipidemia. Normal [facility] Comment on above: Performed By: #### S URGP ####[facility] (DEFAULT)[address] [place] [address] Gross Description Normal [facility] Comment on above: Result Comment: The specimens are received in two properly labeled containers with the patient's name and accession number.A. The specimen is designated Right Inguinal Lymph Nodes and consists of a 9.5 x 8.5 x 3.5 cm aggregate of yellow-juan, lobulated fibroadipose tissue. 17 pink-juan, rubbery probable lymph nodes are identified, ranging in size from 0.7 x 0.6 x 0.3 cm to 3.4 x 1.5 x 1.0 cm. The larger nodes are sectioned to reveal pink-juan to yellow-juan, focally partially fat-replaced cut surfaces with no distinct grossly identifiable lesion. RS 20Cassettes:A1, three whole lymph nodesA2, two whole lymph nodesA3-9, one bisected lymph node eachA10, one trisected lymph pnebQ91-27, one serially sectioned lymph opgbQ27-55, one serially sectioned lymph bboxE97-51, one trisected lymph zpttG12-31, one serially sectioned lymph nodeB. The specimen is designated Left Inguinal Lymph Nodes and consists of a 10.2 x 8.1 x 3.5 cm aggregate of yellow-juan, lobulated fibroadipose tissue. 15 purple-juan to yellow-juan, rubbery to firm probable lymph nodes are identified, ranging in size from 0.5 x 0.4 x 0.3 cm to 3.1 x 1.7 x 0.9 cm. The larger nodes are sectioned to reveal purple-juan to yellow-juan, partially fat-replaced cut surfaces with no distinct grossly identifiable lesion. RS 19Cassettes:B1-2, three whole lymph nodes eachB3-4, two whole lymph nodes eachB5-6, one bisected lymph node eachB7-9, one trisected lymph uakgW29-77, one serially sectioned lymph zddyP02-20, one serially sectioned lymph zxunP32-66, one serially sectioned lymph nodeLab Use Only: JobID [id number] for this case was: Gabriela Khalil Performed By: #### S URGP ####[facility] (DEFAULT)[address] [place] [address] Microscopic Description A microscopic examination was performed. [facility] Comment on above: Performed By: #### S URGP ####[facility] (DEFAULT)[address] [place] [address] Pathologic Diagnosis Normal [facility] Comment on above: Result Comment: A. L ymph nodes, right inguinal, robotic lymphadenectomy:17 lymph nodes, negative for carcinomaB. Lymph nodes, left inguinal, robotic lymphadenectomy:15 lymph nodes, negative for carcinoma Performed By: #### S URGP ####[facility] (DEFAULT)[address] [place] [address] Professional Interpretation Performed at: [facility] Comment on above: Result Comment: [facility] LABORATORYFor Immediate Release to Patient's MyChart? [id number] [address] Performed By: #### S URGP ####[facility] (DEFAULT)[address] [place] [address] TYPE AND SCREENon 03-05-2024 ABO/RH(D) TYPE Positive [facility] Outdate Specimen 03/08/2024 23:[address] [facility] ABO/RH(D) TYPE Positive Normal [facility] Comment on above: Performed By: #### X M ####[facility] (DEFAULT)[address] [place] [address] Outdate Specimen 03/08/2024 23:59 Normal [facility] Comment on above: Performed By: #### X M ####[facility] (DEFAULT)[address] [place] [address] XR ELBOW MINIMUM 3 VIEWS RIG HTon 02-27-2024 XR ELBOW MINIMUM 3 VIEWS RIGHT ORIGINAL EXAMINATION: THREE XRAY VIEWS OF THE RIGHT ELBOW02/27/2024 8:27 am COMPARISON: None HISTORY: ORDERING SYSTEM PROVIDED HISTORY: Reason for Exam: pain FINDINGS: There is no acute displaced fracture or dislocation. There are small nondisplaced fragments at the ulnar aspect of the proximal ulna, which appear well corticated, likely remote. No evidence of elbow effusion. No aggressive osseous lesion. There is elbow enthesopathy. No radiopaque foreign body. IMPRESSION: No acute fracture or dislocation. Interpreted by: Sagrario Magdaleno DO Preliminary Report By: Sagrario Magdaleno DO Electronically signed By Sagrario Magdaleno DO Dictated Date: 02/27/2024 8:28:39 AM Prelim Date: 02/27/2024 8:30:50 AM Sign Date: 02/27/2024 8:30:50 AM Ordering Provider: NEFTALI MO Normal [facility] ([place]) .GFRon 02-25-2024 GFR 99 ml/min/1.73sqm Normal [facility] ([place]) Comment on above: Result Comment: GFR Population mean for , Non- Americans Ages 20-29 = 116 mL/min/1.73 sq.m. Ages 30-39 = 107 mL/min/1.73 sq.m. Ages 40-49 = 99 mL/min/1.73 sq.m. Ages 50-59 = 93 mL/min/1.73 sq.m. Ages 60-69 = 85 mL/min/1.73 sq.m. Ages 70+ = 75 mL/min/1.73 sq.m. Chronic Kidney Disease: Less than 60 mL/min/1.73 square meters End Stage Renal Disease: Less than 15 mL/min/1.73 square meters Performed By: #### A 1C, BMP, GFR #### [address] [address] GFR Non- 81 ml/min/1.73sqm Normal [facility] ([place]) Comment on above: Result Comment: GFR Population mean for , Non- Americans Ages 20-29 = 116 mL/min/1.73 sq.m. Ages 30-39 = 107 mL/min/1.73 sq.m. Ages 40-49 = 99 mL/min/1.73 sq.m. Ages 50-59 = 93 mL/min/1.73 sq.m. Ages 60-69 = 85 mL/min/1.73 sq.m. Ages 70+ = 75 mL/min/1.73 sq.m. Chronic Kidney Disease: Less than 60 mL/min/1.73 square meters End Stage Renal Disease: Less than 15 mL/min/1.73 square meters Performed By: #### A 1C, BMP, GFR #### [place] [address] .Urinalysis Microscopic (AO) on 02-25-2024 UA Squam Epithelial None Seen Normal None Seen [facility] ([place]) Comment on above: Performed By: #### U AMICAO, UA #### [address] [address] UA Bacteria 2+ /hpf Abnormal [facility] ([place]) Comment on above: Performed By: #### U AMICAO, UA #### [address] [address] UA RBC 0-5 Abnormal None Seen [facility] ([place] Comment on above: Performed By: #### U AMICAO, UA #### [place] [id number] UA WBC 15-25 Abnormal None Seen [facility] ([place] Comment on above: Performed By: #### U AMICAO, UA #### [address] [address] A1Con 02-25-2024 Glucose [Mass/Vol] 166 mg/dL Normal [facility] ([place]) Comment on above: Result Comment: Phuong mated Average Glucose calculated by equation ((28.7xA1C)-46.7) Estimated average glucose (eAG) is a calculated value from Hemoglobin A1C and is advertising representative of the average blood glucose level in the last 2-3 month period. Normal range: less than 114 mg/dL Performed By: #### A 1C, BMP, GFR #### [address] [address] HbA1c (Bld) [Mass fraction] 7.4 % High 4.3-6.4 [facility] ([place]) Comment on above: Performed By: #### A 1C, BMP, GFR #### [address] [address] BMPon 02-25-2024 BUN/Creatinine Ratio 14 ratio Normal 7-27 [facility] ([place]) Comment on above: Performed By: #### A 1C, BMP, GFR #### [address] [address] Calcium [Mass/Vol] 9.4 mg/dL Normal 8.4-10.2 [facility] ([place]) Comment on above: Performed By: #### A 1C, BMP, GFR #### [address] [address] Chloride [Moles/Vol] 101 mmol/L Normal 98-107 [facility] ([place] Comment on above: Performed By: #### A 1C, BMP, GFR #### [address] [address] CO2 [Moles/Vol] 25 mmol/L Normal 22-29 [facility] ([place] Comment on above: Performed By: #### A 1C, BMP, GFR #### [address] [address] Creatinine [Mass/Vol] 0.95 mg/dL Normal 0.70-1.30 [facility] ([place]) Comment on above: Performed By: #### A 1C, BMP, GFR #### [address] [address] Electrolyte Balance 13.0 mEq/L Normal 4.0-15.0 [facility] ([place]) Comment on above: Performed By: #### A 1C, BMP, GFR #### [address] [address] Glucose [Mass/Vol] 162 mg/dL High 70-105 [facility] ([place]) Comment on above: Performed By: #### A 1C, BMP, GFR #### [address] [address] Potassium [Moles/Vol] 4.3 mmol/L Normal 3.5-5.1 [facility] ([place]) Comment on above: Performed By: #### A 1C, BMP, GFR #### [address] [address] Sodium [Moles/Vol] 139 mmol/L Normal 136-145 [facility] ([place]) Comment on above: Performed By: #### A 1C, BMP, GFR #### [address] [address] Urea nitrogen [Mass/Vol] 13 mg/dL Normal 7-18 [facility] ([place] Comment on above: Performed By: #### A 1C, BMP, GFR #### [address] [address] CEFEPIME:SUSC:PT:ISOLATE:ORD QN:MICon 02-25-2024 Cefepime ADEOLA [Susc] >100,000 cfu/ml Kleb siella pneumoniae [facility] Work Phone: Cefepime ADEOLA [Susc]on 2023 Klebsiella pneumoniae Klebsiella pneumoniae [facility] Work Phone: LABORATORYOrdered By: Tamiko Beckham on 02-25-2024 Appearance (U) Slightly Cloudy *ABN* (02/25/24 4:12 PM) Invalid Interpretation Code Clear AO Auto Urine SS Bacteria LM.HPF (Urine sed) [#/Area] 2 /[HPF] Invalid Interpretation Code AO Auto Urine SS Bilirubin Ql (U) Negative (02/25/24 4:12 PM) Normal Negative AO Auto Urine SS Color (U) Yellow (02/25/24 4:12 PM) Normal AO Auto Urine SS Glucose Test strip (U) [Mass/Vol] Negative Normal Negative AO Auto Urine SS Hemoglobin Auto test strip (U) [Mass/Vol] Small *ABN* (02/25/24 4:12 PM) Invalid Interpretation Code Negative AO Auto Urine SS Ketones Ql (U) Negative Normal Negative AO Auto Urine SS UA Leuk Est Small *ABN* (02/25/24 4:12 PM) Invalid Interpretation Code Negative AO Auto Urine SS UA Nitrite Negative (02/25/24 4:12 PM) Normal Negative AO Auto Urine SS UA pH 6.0 (02/25/24 4:12 PM) Normal 5.0 - 8.0 AO Auto Urine SS UA Protein Negative Normal Negative AO Auto Urine SS UA RBC 0-5 /HPF Invalid Interpretation Code None Seen AO Auto Urine SS UA Spec Grav 1.025 (02/25/24 4:12 PM) Normal 1.015-1.025 AO Auto Urine SS UA Specimen Type Not Given (02/25/24 4:12 PM) Normal AO Auto Urine SS UA Urobilinogen 0.2 E.U./dL Normal 0.2-1.0 AO Auto Urine SS WBC LM.HPF (Urine sed) [#/Area] 15-25 /HPF Invalid Interpretation Code None Seen AO Auto Urine SS LABORATORYOrdered By: Apoorva Wang on 02-25-2024 UA Squam Epithelial None Seen /HPF Normal None Seen A O Auto Urine SS UAon 02-25-2024 Color (U) Yellow Normal [facility] ([place]) Comment on above: Performed By: #### U AMICAO, UA #### [place] [address] [address] Glucose (U) [Mass/Vol] Negative Normal Negative [facility] ([place]) Comment on above: Performed By: #### U AMICAO, UA #### [place] [id number] [place], [place] [address] Ketones Ql (U) Negative Normal Negative [facility] ([place]) Comment on above: Performed By: #### U AMICAO, UA #### [place] [address] [address] UA Appear Slightly Cloudy Abnormal Clear [facility] ([place]) Comment on above: Performed By: #### U AMICAO, UA #### [place] [address] [address] UA Blood Small Abnormal Negative [facility] ([place] Comment on above: Performed By: #### U AMICAO, UA #### [place] [id number] UA Leuk Est Small Abnormal Negative [facility] ([place]) Comment on above: Performed By: #### U AMICAO, UA #### [place] [address] [address] UA Nitrite Negative Normal Negative [facility] ([place]) Comment on above: Performed By: #### U AMICAO, UA #### [place] [address] UA pH 6.0 Normal 5.0 - 8.0 [facility] ([place] Comment on above: Performed By: #### U AMICAO, UA #### [place] [address] UA Protein Negative Normal Negative [facility] ([place] Comment on above: Performed By: #### U AMICAO, UA #### [place] [address] [address] UA Spec Grav 1.025 Normal 1.015-1.025 [facility] ([place]) Comment on above: Performed By: #### U AMICAO, UA #### [place] [address] [address] UA Specimen Type Not Given Normal [facility] ([place]) Comment on above: Performed By: #### U AMICAO, UA #### [place] [address] [address] UA Urobilinogen 0.2 E.U./dL Normal 0.2-1.0 [facility] ([place]) Comment on above: Performed By: #### U AMICAO, UA #### [place] [id number] [place], [place] [address] Urobilinogen (U) [Mass/Vol] Negative Normal Negative [facility] ([place]) Comment on above: Performed By: #### U ROSSI UA #### [place] [address] [address] CREAT/GFRon 02-03-2024 Creatinine [Mass/Vol] 0.99 mg/dL 0.70 - 1.30 mg/dL [facility] GFR/1.73 sq M.predicted CKD-EPI (S/P/Bld) [Vol rate/Area] 88 - PINF [facility] Comment on above: Reported eGFR is bas ed on the CKD-EPI 2020 equation using creatinine, age, and sex. Interpretation and review of laboratory results Normal [facility] Test performed at ad dress of the patient encounter. [facility] .GFRon 02-02-2024 GFR 85 ml/min/1.73sqm Normal [facility] ([place]) Comment on above: Result Comment: GFR Population mean for , Non- Americans Ages 20-29 = 116 mL/min/1.73 sq.m. Ages 30-39 = 107 mL/min/1.73 sq.m. Ages 40-49 = 99 mL/min/1.73 sq.m. Ages 50-59 = 93 mL/min/1.73 sq.m. Ages 60-69 = 85 mL/min/1.73 sq.m. Ages 70+ = 75 mL/min/1.73 sq.m. Chronic Kidney Disease: Less than 60 mL/min/1.73 square meters End Stage Renal Disease: Less than 15 mL/min/1.73 square meters Performed By: #### A 1C, BMP, GFR #### [address] [address] GFR Non- 70 ml/min/1.73sqm Normal [facility] ([place]) Comment on above: Result Comment: GFR Population mean for , Non- Americans Ages 20-29 = 116 mL/min/1.73 sq.m. Ages 30-39 = 107 mL/min/1.73 sq.m. Ages 40-49 = 99 mL/min/1.73 sq.m. Ages 50-59 = 93 mL/min/1.73 sq.m. Ages 60-69 = 85 mL/min/1.73 sq.m. Ages 70+ = 75 mL/min/1.73 sq.m. Chronic Kidney Disease: Less than 60 mL/min/1.73 square meters End Stage Renal Disease: Less than 15 mL/min/1.73 square meters Performed By: #### A 1C, BMP, GFR #### [address] [address] .Urinalysis Microscopic (AO) on 02-02-2024 UA Bacteria 2+ /hpf Abnormal [facility] ([place]) Comment on above: Performed By: #### U A, UAMICAO #### [address] [address] UA RBC 5-10 Abnormal None Seen [facility] ([place]) Comment on above: Performed By: #### U A, UAMICAO #### [address] [address] UA Squam Epithelial None Seen Normal None Seen [facility] ([place]) Comment on above: Performed By: #### U A, UAMICAO #### [place] [address] UA WBC 15-25 Abnormal None Seen [facility] ([place]) Comment on above: Performed By: #### U A, UAMICAO #### [address] [address] BMPon 02-02-2024 BUN/Creatinine Ratio 15 ratio Normal 7-27 [facility] ([place]) Comment on above: Performed By: #### A 1C, BMP, GFR #### [place] [id number] Calcium [Mass/Vol] 9.2 mg/dL Normal 8.4-10.2 [facility] ([place]) Comment on above: Performed By: #### A 1C, BMP, GFR #### [address] [address] Chloride [Moles/Vol] 100 mmol/L Normal 98-107 [facility] ([place]) Comment on above: Performed By: #### A Boris, BMP, GFR #### [address] [address] CO2 [Moles/Vol] 22 mmol/L Normal 22-29 [facility] ([place]) Comment on above: Performed By: #### A Boris, BMP, GFR #### [address] [address] Creatinine [Mass/Vol] 1.08 mg/dL Normal 0.70-1.30 [facility] ([place]) Comment on above: Performed By: #### David Escalante, TROY, GFR #### [address] [address] Electrolyte Balance 15.0 mEq/L Normal 4.0-15.0 [facility] ([place]) Comment on above: Performed By: #### David Escalante, BMP, GFR #### [address] [address] Glucose [Mass/Vol] 233 mg/dL High 70-105 [facility] ([place]) Comment on above: Performed By: #### A Boris, BMP, GFR #### [address] [address] Potassium [Moles/Vol] 3.4 mmol/L Low 3.5-5.1 [facility] ([place]) Comment on above: Performed By: #### David Escalante, BMP, GFR #### [address] [address] Sodium [Moles/Vol] 137 mmol/L Normal 136-145 [facility] ([place]) Comment on above: Performed By: #### A Boris, BMP, GFR #### [address] [address] Urea nitrogen [Mass/Vol] 16 mg/dL Normal 7-18 [facility] ([place]) Comment on above: Performed By: #### David Escalante, BMP, GFR #### [place] [address] [place], [place] [address] CT ABDOMEN/PELVIS W/O CONTRA STon 02-02-2024 CT ABDOMEN/PELVIS W/O CONTRAST ORIGINAL EXAMINATION: CT OF THE ABDOMEN AND PELVIS WITHOUT CONTRAST 02/02/2024 12:24 am TECHNIQUE: CT of the abdomen and pelvis was performed without the administration of intravenous contrast. Multiplanar reformatted images are provided for review. Automated exposure control, iterative reconstruction, and/or weight based adjustment of the mA/kV was utilized to reduce the radiation dose to as low as reasonably achievable. COMPARISON: None. HISTORY: ORDERING SYSTEM PROVIDED HISTORY: Reason for Exam: abdominal pain FINDINGS: Lower Chest: Normal heart size. Coronary calcifications and stents. Atelectasis in the lung bases. No focal consolidation or pleural effusion. Organs: The liver and biliary tract appears normal. The spleen appears normal. The pancreas demonstrates atrophy. The adrenal glands appear normal. Punctate nonobstructive stones in the right kidney. No left-sided stone seen. No hydronephrosis. Nonspecific perinephric stranding bilaterally. GI/Bowel: There is diverticulosis without diverticulitis. Couple of peripherally calcified soft tissue densities adjacent to the sigmoid colon are most compatible with infarcted fat however attention on follow-up given diagnosis of malignancy. There is no evidence of obstruction. The appendix is normal. Pelvis: The pelvic organs appear normal. Peritoneum/Retroperitoneum: There is no intraperitoneal free air or ascites. Atherosclerosis of the aorta and major branches without aneurysm is noted. No lymphadenopathy is identified. Bones/Soft Tissues: Degenerative changes are noted in the spine. No focal soft tissue abnormality is identified. IMPRESSION: 1. No acute intra-abdominal or pelvic process. 2. Punctate nonobstructive right renal stones. 3. Diverticulosis without diverticulitis. 4. Couple of peripherally calcified soft tissue densities adjacent to the sigmoid colon are most compatible with infarcted fat however attention on follow-up given diagnosis of malignancy. Interpreted by: Christian Mendez Preliminary Report By: Christian Mendez Electronically signed By Christian Mendez Dictated Date: 02/02/2024 12:25:28 AM Prelim Date: 02/02/2024 12:30:25 AM Sign Date: 02/02/2024 12:30:25 AM Ordering Provider: NEFTALI Longoria [facility] ([place]) LABORATORYOrdered By: Apoorva Wang on 02-02-2024 Appearance (U) Slightly Cloudy *ABN* (02/02/24 12:28 AM) Invalid Interpretation Code Clear AO Auto Urine SS Bacteria LM.HPF (Urine sed) [#/Area] 2 /[HPF] Invalid Interpretation Code AO Auto Urine SS Bilirubin Ql (U) Negative (02/02/24 12:28 AM) Normal Negative AO Auto Urine SS Color (U) Yellow (02/02/24 12:28 AM) Normal AO Auto Urine SS Glucose Test strip (U) [Mass/Vol] 100 mg/dL Invalid Interpretation Code Negative AO Auto Urine SS Hemoglobin Auto test strip (U) [Mass/Vol] Moderate *ABN* (02/02/24 12:28 AM) Invalid Interpretation Code Negative AO Auto Urine SS Ketones Ql (U) Negative Normal Negative AO Auto Urine SS UA Leuk Est Small *ABN* (02/02/24 12:28 AM) Invalid Interpretation Code Negative AO Auto Urine SS UA Nitrite Negative (02/02/24 12:28 AM) Normal Negative AO Auto Urine SS UA pH 5.5 (02/02/24 12:28 AM) Normal 5.0 - 8.0 AO Auto Urine SS UA Protein Negative Normal Negative AO Auto Urine SS UA RBC 5-10 /HPF Invalid Interpretation Code None Seen AO Auto Urine SS UA Spec Grav 1.010 *ABN* (02/02/24 12:28 AM) Invalid Interpretation Code 1.015-1.025 AO Auto Urine SS UA Specimen Type Clean Catch (02/02/24 12:28 AM) Normal AO Auto Urine SS UA Squam Epithelial None Seen /HPF Normal None Seen A O Auto Urine SS UA Urobilinogen 0.2 E.U./dL Normal 0.2-1.0 AO Auto Urine SS WBC LM.HPF (Urine sed) [#/Area] 15-25 /HPF Invalid Interpretation Code None Seen AO Auto Urine SS UAon 02-02-2024 Color (U) Yellow Normal [facility] ([place]) Comment on above: Performed By: #### U David UAMICSTEVE #### [place] [address] [address] Glucose (U) [Mass/Vol] 100 mg/dL Abnormal Negative [facility] ([place]) Comment on above: Performed By: #### U David UAMICAO #### [address] [address] Ketones Ql (U) Negative Normal Negative [facility] ([place]) Comment on above: Performed By: #### U A, UAMICAO #### [place] [address] [address] UA Appear Slightly Cloudy Abnormal Clear [facility] ([place] Comment on above: Performed By: #### U A, UAMICAO #### [place] [address] UA Blood Moderate Abnormal Negative [facility] ([place] Comment on above: Performed By: #### U A, UAMICAO #### [place] [address] UA Leuk Est Small Abnormal Negative [facility] ([place] Comment on above: Performed By: #### U A, UAMICAO #### [place] [address] UA Nitrite Negative Normal Negative [facility] ([place] Comment on above: Performed By: #### U A, UAMICAO #### [place] [address] UA pH 5.5 Normal 5.0 - 8.0 [facility] ([place] Comment on above: Performed By: #### U A, UAMICAO #### [place] [address] UA Protein Negative Normal Negative [facility] ([place] Comment on above: Performed By: #### U A, UAMICAO #### [address] [address] UA Spec Grav 1.010 Abnormal 1.015-1.025 [facility] ([place] Comment on above: Performed By: #### U A, UAMICAO #### [place] [address] UA Specimen Type Clean Catch Normal [facility] ([place] Comment on above: Performed By: #### U A, UAMICAO #### [address] [address] UA Urobilinogen 0.2 E.U./dL Normal 0.2-1.0 [facility] ([place] Comment on above: Performed By: #### U A UAMICAO #### [address] [address] Urobilinogen (U) [Mass/Vol] Negative Normal Negative [facility] ([place] Comment on above: Performed By: #### U A UAMICAO #### [address] [address] .Auto Diffon 02-01-2024 Basophil, Absolute 0.1 10 3/mcL Normal 0.0-0.2 [facility] ([place]) Comment on above: Performed By: #### A 1C, BMP, GFR #### [address] [address] Basophils/100 WBC (Bld) 0.8 % Normal 0.0-2.5 [facility] ([place] Comment on above: Performed By: #### A 1C, BMP, GFR #### [address] [address] Eosinophil, Absolute 0.2 10 3/mcL Normal 0.0-0.4 [facility] ([place] Comment on above: Performed By: #### A 1C, BMP, GFR #### [address] [address] Eosinophils/100 WBC (Bld) 3.2 % Normal 0.0-7.0 [facility] ([place] Comment on above: Performed By: #### A 1C, BMP, GFR #### [address] [address] Lymphocyte, Absolute 1.3 10 3/mcL Normal 0.8-3.9 [facility] ([place] Comment on above: Performed By: #### A 1C, BMP, GFR #### [address] [address] Lymphocytes/100 WBC (Bld) 19.0 % Normal 10.0-50.0 [facility] ([place] Comment on above: Performed By: #### A Boris, BMP, GFR #### [address] [address] Monocyte, Absolute 0.8 10 3/mcL Normal 0.2-1.0 [facility] ([place] Comment on above: Performed By: #### A Boris, BMP, GFR #### [address] [address] Monocytes/100 WBC (Bld) 11.1 % Normal 1.7-13.0 [facility] ([place]) Comment on above: Performed By: #### A Boris, BMP, GFR #### [address] [address] Neutrophils/100 WBC (Bld) 65.9 % Normal 37.0-80.0 [facility] ([place] Comment on above: Performed By: #### David Escalante, BMP, GFR #### [place] [address] .MDWon 02-01-2024 Monocyte Distribution Width 19.63 Normal 0.00-20.00 [facility] ([place]) Comment on above: Result Comment: For ED adult patients suspected of sepsis, MDW<=20.0 does not rule out sepsis or risk of sepsis Performed By: #### A Boris, BMP, GFR #### [address] [address] .NEUABSon 02-01-2024 Neutrophil, Absolute 4.7 10 3/mcL Normal 2.9-6.2 [facility] ([place] Comment on above: Performed By: #### A Boris, BMP, GFR #### [address] [address] CBCon 02-01-2024 Erythrocyte distribution width (RBC) [Ratio] 13.4 % Normal 11.5-14.5 [facility] ([place] Comment on above: Performed By: #### A Boris, BMP, GFR #### [address] [address] Hematocrit (Bld) [Volume fraction] 33.5 % Low 42.0-52.0 [facility] ([place] Comment on above: Performed By: #### A Boris BMP, GFR #### [address] [address] Hgb 12.0 G/dL Low 14.0-18.0 [facility] ([place] Comment on above: Performed By: #### A Boris, BMP, GFR #### [address] [address] MCH (RBC) [Entitic mass] 31.9 pg High 27.0-31.2 [facility] ([place] Comment on above: Performed By: #### A Boris BMP, GFR #### [address] [address] MCHC 35.9 G/dL High 31.8-35.4 [facility] ([place] Comment on above: Performed By: #### A Boris BMP, GFR #### [address] [address] MCV (RBC) [Entitic vol] 88.9 fL Normal 80.0-94.0 [facility] ([place] Comment on above: Performed By: #### David Escalante BMP, GFR #### [address] [address] Platelet 226 10 3/mcL Normal 130-400 [facility] ([place] Comment on above: Performed By: #### A Boris, BMP, GFR #### [address] [address] Platelet mean volume (Bld) [Entitic vol] 6.3 fL Low 7.4-10.4 [facility] ([place] Comment on above: Performed By: #### A Boris, BMP, GFR #### [address] [address] RBC 3.77 10 6/mcL Low 4.04-6.13 [facility] ([place] Comment on above: Performed By: #### David Escalante, BMP, GFR #### [address] [address] WBC 7.1 10 3/mcL Normal 4.6-10.8 [facility] ([place] Comment on above: Performed By: #### A 1C, BMP, GFR #### [address] [address] LABORATORYOrdered By: SYSTEM SYSTEM on 02-01-2024 Basophil, Absolute 0.1 103/mcL Normal 0.0 - 0.2 10^3/mcL AO Workflow SS Basophils/100 WBC (Bld) 0.8 % Normal 0.0 - 2.5 % AO Workflow SS Calcium [Mass/Vol] 9.2 mg/dL Normal 8.4 - 10. 2 mg/dL AO ADM SS Chloride [Moles/Vol] 100 mmol/L Normal 98 - 107 mmol/L AO ADM SS CO2 [Moles/Vol] 22 mmol/L Normal 22 - 29 mmol/L AO ADM SS Creatinine [Mass/Vol] 1.08 mg/dL Normal 0.70 - 1.30 mg/dL AO ADM SS Electrolyte Balance 15.0 mEq/L Normal 4.0 - 15 .0 mEq/L AO ADM SS Eosinophil, Absolute 0.2 103/mcL Normal 0.0 - 0.4 10^3/mcL AO Workflow SS Eosinophils/100 WBC (Bld) 3.2 % Normal 0.0 - 7.0 % AO Workflow SS Erythrocyte distribution width (RBC) [Ratio] 13.4 % Normal 11.5 - 14.5 % AO Workflow SS GFR/1.73 sq M.predicted among blacks MDRD (S/P/Bld) [Vol rate/Area] 85 ml/min/1.73sqm Invalid Interpretation Code AO Chemistry S Comment on above: Interpretive Data: GFR Population mean for , Non- Americans Ages 20-29 = 116 mL/min/1.73 sq.m. Ages 30-39 = 107 mL/min/1.73 sq.m. Ages 40-49 = 99 mL/min/1.73 sq.m. Ages 50-59 = 93 mL/min/1.73 sq.m. Ages 60-69 = 85 mL/min/1.73 sq.m. Ages 70+ = 75 mL/min/1.73 sq.m. Chronic Kidney Disease: Less than 60 mL/min/1.73 square meters End Stage Renal Disease: Less than 15 mL/min/1.73 square meters GFR/1.73 sq M.predicted among non-blacks MDRD (S/P/Bld) [Vol rate/Area] 70 ml/min/1.73sqm Invalid Interpretation Code AO Chemistry S Comment on above: Interpretive Data: GFR Population mean for , Non- Americans Ages 20-29 = 116 mL/min/1.73 sq.m. Ages 30-39 = 107 mL/min/1.73 sq.m. Ages 40-49 = 99 mL/min/1.73 sq.m. Ages 50-59 = 93 mL/min/1.73 sq.m. Ages 60-69 = 85 mL/min/1.73 sq.m. Ages 70+ = 75 mL/min/1.73 sq.m. Chronic Kidney Disease: Less than 60 mL/min/1.73 square meters End Stage Renal Disease: Less than 15 mL/min/1.73 square meters Glucose [Mass/Vol] 233 mg/dL High 70 - 105 mg/dL AO ADM SS Hematocrit (Bld) [Volume fraction] 33.5 % Low 42.0 - 52.0 % AO Workflow SS Hemoglobin (Bld) [Mass/Vol] 12.0 G/dL Low 14.0 - 18.0 G/dL AO Workflow SS Lymphocyte, Absolute 1.3 103/mcL Normal 0.8 - 3.9 10^3/mcL AO Workflow SS Lymphocytes/100 WBC (Bld) 19.0 % Normal 10.0 - 50.0 % AO Workflow SS MCH (RBC) [Entitic mass] 31.9 pg High 27.0 - 31.2 pg AO Workflow SS MCHC 35.9 G/dL High 31.8 - 35.4 G/dL AO Workflow SS MCV (RBC) [Entitic vol] 88.9 fL Normal 80.0 - 94.0 fL AO Workflow SS Monocyte distribution width Auto (Bld) [Entitic vol] 19.63 1 Normal 0.00 - 20.00 AO Workflow SS Comment on above: Result Comment: For ED adult patients suspected of sepsis, MDW<=20.0 does not rule out sepsis or risk of sepsis Monocyte, Absolute 0.8 103/mcL Normal 0.2 - 1.0 10^3/mcL AO Workflow SS Monocytes/100 WBC (Bld) 11.1 % Normal 1.7 - 13.0 % AO Workflow SS Neutrophil, Absolute 4.7 103/mcL Normal 2.9 - 6.2 10^3/mcL AO Workflow SS Neutrophils/100 WBC (Bld) 65.9 % Normal 37.0 - 80.0 % AO Workflow SS Platelet mean volume (Bld) [Entitic vol] 6.3 fL Low 7.4 - 10.4 fL AO Workflow SS Platelets (Bld) [#/Vol] 226 103/mcL Normal 130 - 400 10^3/mcL AO Workflow SS Potassium [Moles/Vol] 3.4 mmol/L Low 3.5 - 5.1 mmol/L AO ADM SS RBC (Bld) [#/Vol] 3.77 106/mcL Low 4.04 - 6.1 3 10^6/mcL AO Workflow SS Sodium [Moles/Vol] 137 mmol/L Normal 136 - 145 mmol/L AO ADM SS Urea nitrogen [Mass/Vol] 16 mg/dL Normal 7 - 18 mg/dL AO ADM SS Urea nitrogen/Creatinine [Mass ratio] 15 ratio Normal 7 - 27 ratio AO ADM SS WBC (Bld) [#/Vol] 7.1 103/mcL Normal 4.6 - 10.8 10^3/mcL AO Workflow SS CT ABDOMEN/PELVIS WITH CONTR Louise 01-31-2024 CT ABDOMEN/PELVIS WITH CONTRAST Normal [facility] CT Abdomen and Pelvis W cont rast Seda 01-31-2024 IMPRESSION: 1. Status post interval partial penectomy. 2. Otherwise stable exam, with no definite CT evidence for progressive disease in the abdomen/pelvis when compared to 11/29/2023. 3. Stable dense subcentimeter left inguinal lymph node, indeterminate. Minda Villarreal M.D. This report has been electronically signed and verified by the Radiologist whose name is printed above. This report contains privileged and confidential information and is intended solely for the use of the individual or entity to which it is addressed. If you are not the intended recipient of this report, you are hereby notified that any copying, distribution, dissemination or action taken in relation to the contents of this report is strictly prohibited and may be unlawful. If you have received this report in error, please notify the sender immediately at [phone] and permanently delete the original report and destroy any copies or printouts. RADIOLOGY EXAM: CT ABDOMEN/PEL VIS WITH CONTRAST COMPARISON: 11/29/2023, 08/16/2023 CLINICAL INDICATIONS: Recurrent invasive squamous cell penile cancer ADDITIONAL INFORMATION (per [facility]iologist): Status post partial penectomy 01/22/2024. Restaging. TECHNIQUE: CT scanning was performed through the abdomen and pelvis following the administration of intravenous contrast. PROTOCOL: Standard FINDINGS: LOWER THORAX: Mild bibasilar atelectasis. Coronary artery calcification. LIVER: Diffuse hepatic steatosis. No focal hepatic lesions. The main portal vein is patent. BILIARY: Unremarkable. PANCREAS: Unremarkable. SPLEEN: The spleen is enlarged, measuring 15.9 cm in maximum dimension, stable. No focal splenic lesions. ADRENAL GLANDS: Unremarkable. KIDNEYS/URETERS: Punctate nonobstructing calyceal stones in the right kidney. No evidence of obstructive uropathy. Otherwise unremarkable. PELVIC ORGANS/BLADDER: Status post interval partial penectomy with interval resection of a focal area of enhancing nodularity seen on the prior CT. No significant abnormality seen at the surgical site. Enlarged prostate, with suspected TURP defect again seen. Circumferential bladder wall thickening is likely related to chronic outlet obstruction and under distention. Seminal vesicles are grossly unremarkable. GI TRACT: A few colonic diverticula. Normal appendix. No focal bowel wall thickening or bowel obstruction. PERITONEUM: No free air or free fluid. LYMPH NODES: No pathologically enlarged lymph nodes. Dense 0.9 cm x 0.7 cm left inguinal lymph node (image 179), stable and nonspecific. No new or progressive lymphadenopathy. VESSELS: Atherosclerosis. No abdominal aortic aneurysm. BONES AND SOFT TISSUES: No suspicious osseous lesions. Degenerative changes in the spine and hips. Diastases recti. RADIOLOGY Minda Villarreal MD - 01/31/2024 EXAM: CT ABDOMEN/PELVIS WITH CONTRAST COMPARISON: 11/29/2023, 08/16/2023 CLINICAL INDICATIONS: Recurrent invasive squamous cell penile cancer ADDITIONAL INFORMATION (per [facility]): Status post partial penectomy 01/22/2024. Restaging. TECHNIQUE: CT scanning was performed through the abdomen and pelvis following the administration of intravenous contrast. PROTOCOL: Standard FINDINGS: LOWER THORAX: Mild bibasilar atelectasis. Coronary artery calcification. LIVER: Diffuse hepatic steatosis. No focal hepatic lesions. The main portal vein is patent. BILIARY: Unremarkable. PANCREAS: Unremarkable. SPLEEN: The spleen is enlarged, measuring 15.9 cm in maximum dimension, stable. No focal splenic lesions. ADRENAL GLANDS: Unremarkable. KIDNEYS/URETERS: Punctate nonobstructing calyceal stones in the right kidney. No evidence of obstructive uropathy. Otherwise unremarkable. PELVIC ORGANS/BLADDER: Status post interval partial penectomy with interval resection of a focal area of enhancing nodularity seen on the prior CT. No significant abnormality seen at the surgical site. Enlarged prostate, with suspected TURP defect again seen. Circumferential bladder wall thickening is likely related to chronic outlet obstruction and under distention. Seminal vesicles are grossly unremarkable. GI TRACT: A few colonic diverticula. Normal appendix. No focal bowel wall thickening or bowel obstruction. PERITONEUM: No free air or free fluid. LYMPH NODES: No pathologically enlarged lymph nodes. Dense 0.9 cm x 0.7 cm left inguinal lymph node (image 179), stable and nonspecific. No new or progressive lymphadenopathy. VESSELS: Atherosclerosis. No abdominal aortic aneurysm. BONES AND SOFT TISSUES: No suspicious osseous lesions. Degenerative changes in the spine and hips. Diastases recti. IMPRESSION IMPRESSION: 1. Status post interval partial penectomy. 2. Otherwise stable exam, with no definite CT evidence for progressive disease in the abdomen/pelvis when compared to 11/29/2023. 3. Stable dense subcentimeter left inguinal lymph node, indeterminate. Minda Villarreal M.D. This report has been electronically signed and verified by the Radiologist whose name is printed above. This report contains privileged and confidential information and is intended solely for the use of the individual or entity to which it is addressed. If you are not the intended recipient of this report, you are hereby notified that any copying, distribution, dissemination or action taken in relation to the contents of this report is strictly prohibited and may be unlawful. If you have received this report in error, please notify the sender immediately at [phone] and permanently delete the original report and destroy any copies or printouts. [facility] Radiology Study observation (narrative) [facility] Abdomen and Pelvis W cont rast IVOrdered By: Minda Villarreal on 01-31-2024 [facility] URINALYSIS (POC DEVICE)on Blood Urine,Poc Device Large Abnormal Negative [facility] Glucose Urine,Poc Device 100 mg/dL Abnormal Negative mg/dL [facility] Interpretation and review of laboratory results Abnormal [facility] Ketones Urine,Poc Device Negative Negative [facility] Leukocyte Esterase, Poc Device Large Abnormal Negative [facility] Nitrite Test strip (U) [Mass/Vol] Negative Negative [facility] pH (U) 5.5 [pH] 5.0 - 7.0 [facility] Protein (U) [Mass/Vol] mg/dL Abnormal Negative mg/dL [facility] Specific gravity (U) [Rel density] 1.010 1.001 - 1.035 [facility] Urobilinogen Urine,Poc Device 0.2 E.U./dL 0.2-1.0 EU/dL [facility] Test performed at ad dress of the patient encounter. [facility] URINE CULTUREon 01-29-2024 Amikacin [Susceptibility] <= Invalid Interpretation Code [facility] Comment on above: Order Comment: This order contains result documents that were not sent. The result might be incomplete. Performed By: #### U R ####[facility] (DEFAULT)[address] [place] [address] Ampicillin [Susceptibility] >=32 Resistant [facility] Comment on above: Order Comment: This order contains result documents that were not sent. The result might be incomplete. Performed By: #### U R ####[facility] (DEFAULT)[address] [place] [address] Ampicillin+Sulbacta m [Susceptibility] 8 ug/mL Invalid Interpretation Code [facility] Comment on above: Order Comment: This order contains result documents that were not sent. The result might be incomplete. Performed By: #### U R ####[facility] (DEFAULT)[address] [place] [address] ceFAZolin [Susceptibility] <= Invalid Interpretation Code [facility] Comment on above: Order Comment: This order contains result documents that were not sent. The result might be incomplete. Result Comment: Cefa zolin susceptibility results can be inferred to the following oral cephalosporins: cephalexin, cefuroxime, and cefdinir. Performed By: #### U R ####[facility] (DEFAULT)[address] [place] [address] Cefepime [Susceptibility] <= Invalid Interpretation Code [facility] Comment on above: Order Comment: This order contains result documents that were not sent. The result might be incomplete. Performed By: #### U R ####[facility] (DEFAULT)[address] [address] cefTRIAXone [Susceptibility] <= Invalid Interpretation Code [facility] Comment on above: Order Comment: This order contains result documents that were not sent. The result might be incomplete. Performed By: #### U R ####[facility] (DEFAULT)[address] [place] [address] Ciprofloxacin [Susceptibility] <= Invalid Interpretation Code [facility] Comment on above: Order Comment: This order contains result documents that were not sent. The result might be incomplete. Performed By: #### U R ####[facility] (DEFAULT)[address] [place] [address] Gentamicin [Susceptibility] <= Invalid Interpretation Code [facility] Comment on above: Order Comment: This order contains result documents that were not sent. The result might be incomplete. Performed By: #### U R ####[facility] (DEFAULT)[address] [place] [address] Nitrofurantoin [Susceptibility] 64 ug/mL Significant change up [facility] Comment on above: Order Comment: This order contains result documents that were not sent. The result might be incomplete. Performed By: #### U R ####[facility] (DEFAULT)[address] [place] [address] Tobramycin [Susceptibility] <= Invalid Interpretation Code [facility] Comment on above: Order Comment: This order contains result documents that were not sent. The result might be incomplete. Performed By: #### U R ####[facility] (DEFAULT)[address] [place] [address] Trimethoprim+Sulfam ethoxazole [Susceptibility] <= Invalid Interpretation Code [facility] Comment on above: Order Comment: This order contains result documents that were not sent. The result might be incomplete. Performed By: #### U R ####[facility] (DEFAULT)[address] [place] [address] CONTINUOUS CARDIAC MONITORIN G STRIPOrdered By: Unassigned Pacs on 01-22-2024 [facility] Work Phone: GLUCOSE POCon 01-22-2024 Glucose [Mass/Vol] 199 mg/dL High 70 - 99 mg/dL [facility] Interpretation and review of laboratory results Abnormal [facility] POC Sample Type CAPBL [facility] Test performed at ad dress of the patient encounter. [facility] SURG PATH REQUESTon 01-22-20 24 Case Report Normal [facility] Comment on above: Result Comment: Surg ical Pathology Report Case: [id number] Provider: Izaiah Maurer MD Collected: 01/22/2024 10:55 AMOrdering Location: Perioperative Services at Received: 01/22/2024 12:10 PM [facility] Out[facility] CarePathologist: Giovani Rodrigues MD, PhDSpecimen: SURG PATH, distal penis Performed By: #### S URGP ####[facility] (DEFAULT)[address] [place] [address] Clinical History Penile mass. Medical History: Pulmonary embolism. Penile cancer. Hyperlipidemia. Essential hypertension, benign. Diabetes mellitus. Melanoma. Normal [facility] Comment on above: Performed By: #### S URGP ####[facility] (DEFAULT)[address] [place] [address] Gross Description Normal [facility] Comment on above: Result Comment: The specimen is received in one properly labeled container with the patient's name and accession number.A. The specimen is designated distal penis and consists of an unoriented distal penectomy comprised entirely of glans penis, measuring 3.3 x 3.0 x 2.6 (length) cm. The specimen is unoriented and no definitive orienting features are present. The resection margin is inked black. The skin of the glans is predominantly pale pink-juan, soft, and smooth with a 2.4 x 1.9 cm, exophytic, fungating, crusted, bosselated, red penile mass on the lateral aspect of the glans that is 0.1 cm from the urethral orifice and 0.6 cm from the closest skin margin. The penile urethra is patent through the orifice and down through the margin, and the mass remains 1.4 cm from the proximal urethral margin. The specimen is serially sectioned from proximal to distal revealing the mass has a greatest possible depth of 0.3 cm to possibly superficially erode into the lamina propria of the corpus spongiosum. (P) TE 4Cassettes:A1-A4, entire specimen submitted sequentially from proximal to distal (shave resection margin in A1)Note: These cassettes are whole mount cassettes.Lab Use Only: JobID [id number] for this case was: Mga Akhtar Performed By: #### S URGP ####[facility] (DEFAULT)[address] [place] [address] Microscopic Description A microscopic examination was performed. [facility] Comment on above: Performed By: #### S URGP ####[facility] (DEFAULT)[address] [place] [address] Pathologic Diagnosis [facility] Comment on above: Result Comment: A. D istal penis, partial penectomy:Invasive well-differentiated squamous cell carcinoma.SYNOPTIC REPORT FOR CARCINOMA OF THE PENIS:Penectomy type (p=partial, t=total): pTumor site (g=glans, s=shaft): gForeskin (p=present, n=not identified): nTumor size (cm): 2.4Histologic type: Invasive squamous cell carcinomaTumor grade (1-3): 1Perineural invasion (n=no, y=yes): nLymphovascular invasion (n=no, y=yes): nTumor extent (n=no, y=yes, na=not applicable): Invasion of subepithelial tissue: y Invasion of corpus spongiosum: y Invasion of corpus cavernosum: y Invasion of adjacent structures: nResection margin (n=negative, p=positive): Margin status for invasive tumor: n Margin status for in situ tumor: naRegional lymph nodes (n=no, y=yes, na=not applicable):na Number examined: 0 Number positive: na Size of largest metastatic deposit (cm): na Extranodal extension: na Location of metastasis: naAdditional findings: NONEpTNM: pT3 NxComments: NONEPathologic Staging Definitions (pTNM):Primary Tumor (pT)pTX: Cannot be assessedpT0: No evidence of primary tumorpTa: Noninvasive carcinoma (broad pushing penetration is permitted)pTis: Carcinoma in [id number]: Subepithelial invasion without lymphovascular invasion, perineural invasion or grade 3pT1b: Subepithelial invasion with lymphovascular invasion, perineural invasion or grade 3pT2: Invasion of corpus spongiosumpT3: Invasion of corpus cavernosumpT4: Invasion of adjacent structures including scrotum, prostate and pubic boneRegional Lymph Nodes (pN)(superficial/deep inguinal, pelvic (external iliac, internal iliac/hypogastric, obturator, pelvic NOS))pNX: Cannot be assessedpN0: No regional lymph node metastasispN1: Metastasis in 1 or 2 unilateral inguinal node(s)pN2: Metastasis in 3 or more unilateral inguinal nodes OR bilateral inguinal nodespN3: Extranodal extension OR metastasis to pelvic lymph nodeDistant Metastasis (pM)pM1: Distant metastasis (ex: common iliac, aortic/caval lymph node)The above synoptic report complies, in slightly modified form, with the guidelines of the [employer] and the Association of Directors of Anatomic and Surgical Pathology for the reporting of cancer specimens Performed By: #### S URGP ####[facility] ([place] [address] Professional Interpretation Performed at: [facility] Comment on above: Result Comment: [facility] CLINICAL LABORATORYFor Immediate Release to Patient's MyChart? [address] [place] [address] Performed By: #### S URGP ####[facility] (DEFAULT)[address] [place] [address] ACID FAST CULTURE, TISSUEon 01-08-2024 Bacteria identified Cx Nom (Unsp spec) NO GROWTH DAY 42 OF 42 Normal [facility] Comment on above: Performed By: #### A FBT ####[facility] (DEFAULT)[address] [place] [address] Fluorochrome Stain No acid Fast Bacillus Seen Normal [facility] Comment on above: Performed By: #### A FBT ####[facility] (DEFAULT)[address] [place] [address] BACTERIAL CULTURE AND DIRECT SMEAR, LESION, TISSUE, DEVICEon 01-08-2024 Bacteria identified Cx Nom (Unsp spec) Normal [facility] Comment on above: Result Comment: Grow [id number] Growth Streptococcus agalactiaePenicillins are drugs of choice for Streptococcus agalactiae infections. For penicillin allergic patients, susceptibility testing is recommended for Erythromycin and Clindamycin. Notify the laboratory at [phone] within five days if susceptibilitiesare needed for a penicillin allergic patient. Performed By: #### G EN ####[facility] (DEFAULT)[address] [place] [address] Microscopic observation Gram stain Nom (Unsp spec) Normal [facility] Comment on above: Result Comment: Neut rophils, LightEpithelial cells, moderateGram Positive Cocci Performed By: #### G EN ####[facility] (DEFAULT)[address] [place] [address] FUNGUS CULTURE (SKIN, HAIR, NAILS)on 01-08-2024 Bacteria identified Cx Nom (Unsp spec) NO GROWTH DAY 28 OF 28 Normal [facility] Comment on above: Performed By: #### S HNF ####[facility] (DEFAULT)[address] [place] [address] SURG PATH REQUESTon 01-08-20 24 Case Report [facility] Comment on above: Result Comment: Surg ical Pathology Report Case: [id number] Provider: Rebekah Morris MD Collected: 01/08/2024 10:14 AMOrdering Location: Dermatology Officenter Received: 01/08/2024 10:56 AM GahannaPathologist: JENNA Hutsonpecimen: Skin Bx Not cyst/tag/debridement/ plastic Performed By: #### S URGP ####[facility] (DEFAULT)[address] [place] [address] Clinical History R/o malignancy (favo r SCC vs other) vs infectious vs inflammatory vs other. Neoplasm of uncertain behavior of skin [D48.5] - primary. [facility] Comment on above: Performed By: #### S URGP ####[facility] (DEFAULT)[address] [place] [address] Gross Description [facility] Comment on above: Result Comment: The specimen is received in one properly labeled container with the patient's name and accession number.A. The specimen is designated glans penis anterior and consists of an irregular shave of skin that is 1.5 x 1.2 x 0.1 cm. The surface displays a juan-white to yellow, roughened lesion that is 1.1 x 0.6 cm and comes up to the surgical margin. The surgical margin is inked blue and the specimen is serially sectioned. TE 1Lab Use Only: JobID [id number] for this case was: Karla Bauer Performed By: #### S URGP ####[facility] (DEFAULT)[address] [place] [address] Microscopic Description A microscopic examination was performed. [facility] Comment on above: Performed By: #### S URGP ####[facility] (DEFAULT)[address] [place] [address] Pathologic Diagnosis [facility] Comment on above: Result Comment: A. Michael kin, glans penis anterior, shave:Invasive well-differentiated squamous cell carcinoma. Performed By: #### S URGP ####[facility] (DEFAULT)[address] [place] [address] Professional Interpretation Performed at: Normal [facility] Comment on above: Result Comment: [facility] CLINICAL LABFor Immediate Release to Patient's [facility]? [id number] [facility], [address], [place] [address] Performed By: #### S URGP ####[facility] (DEFAULT)[address] [place] [address] [address] [address] ABDOMEN/PELVIS WITH CONTR Louise 12-05-2023 CT ABDOMEN/PELVIS WITH CONTRAST Normal [facility] .Auto Diffon 10-28-2023 Basophil, Absolute 0.0 10 3/mcL Normal 0.0-0.2 [facility] ([place]) Comment on above: Performed By: #### U A, UAMICAO #### [address] [address] Basophils/100 WBC (Bld) 0.4 % Normal 0.0-2.5 [facility] ([place]) Comment on above: Performed By: #### U A, UAMICAO #### [address] [address] Eosinophil, Absolute 0.4 10 3/mcL Normal 0.0-0.4 [facility] ([place]) Comment on above: Performed By: #### U A, UAMICAO #### [address] [address] Eosinophils/100 WBC (Bld) 6.5 % Normal 0.0-7.0 [facility] ([place]) Comment on above: Performed By: #### U A, UAMICAO #### [address] [address] Lymphocyte, Absolute 2.1 10 3/mcL Normal 0.8-3.9 [facility] ([place]) Comment on above: Performed By: #### U A UAMICAO #### [address] [address] Lymphocytes/100 WBC (Bld) 33.2 % Normal 10.0-50.0 [facility] ([place]) Comment on above: Performed By: #### U A UAMICAO #### [address] [address] Monocyte, Absolute 0.5 10 3/mcL Normal 0.2-1.0 [facility] ([place]) Comment on above: Performed By: #### U A UAMICAO #### [address] [address] Monocytes/100 WBC (Bld) 8.6 % Normal 1.7-13.0 [facility] ([place]) Comment on above: Performed By: #### U A UAMICAO #### [address] [address] Neutrophils/100 WBC (Bld) 51.3 % Normal 37.0-80.0 [facility] ([place]) Comment on above: Performed By: #### U David UAMICAO #### [address] [address] .GFRon 10-28-2023 GFR 88 ml/min/1.73sqm Normal [facility] ([place]) Comment on above: Result Comment: GFR Population mean for , Non- Americans Ages 20-29 = 116 mL/min/1.73 sq.m. Ages 30-39 = 107 mL/min/1.73 sq.m. Ages 40-49 = 99 mL/min/1.73 sq.m. Ages 50-59 = 93 mL/min/1.73 sq.m. Ages 60-69 = 85 mL/min/1.73 sq.m. Ages 70+ = 75 mL/min/1.73 sq.m. Chronic Kidney Disease: Less than 60 mL/min/1.73 square meters End Stage Renal Disease: Less than 15 mL/min/1.73 square meters Performed By: #### A 1C, BMP, GFR #### [address] [address] GFR Non- 73 ml/min/1.73sqm Normal [facility] ([place]) Comment on above: Result Comment: GFR Population mean for , Non- Americans Ages 20-29 = 116 mL/min/1.73 sq.m. Ages 30-39 = 107 mL/min/1.73 sq.m. Ages 40-49 = 99 mL/min/1.73 sq.m. Ages 50-59 = 93 mL/min/1.73 sq.m. Ages 60-69 = 85 mL/min/1.73 sq.m. Ages 70+ = 75 mL/min/1.73 sq.m. Chronic Kidney Disease: Less than 60 mL/min/1.73 square meters End Stage Renal Disease: Less than 15 mL/min/1.73 square meters Performed By: #### David 1C, BMP, GFR #### [address] [address] .NEUABSon 10-28-2023 Neutrophil, Absolute 3.2 10 3/mcL Normal 2.9-6.2 [facility] ([place]) Comment on above: Performed By: #### IZA Carvajal #### [address] [address] A1Con 10-28-2023 HbA1c (Bld) [Mass fraction] 7.0 % High 4.3-6.4 [facility] ([place]) Comment on above: Performed By: #### David 1C, BMP, GFR #### [address] [address] CBCon 10-28-2023 Erythrocyte distribution width (RBC) [Ratio] 13.2 % Normal 11.5-14.5 [facility] ([place]) Comment on above: Performed By: #### IZA Carvajal #### [address] [address] [address] Hematocrit (Bld) [Volume fraction] 40.9 % Low 42.0-52.0 [facility] ([place]) Comment on above: Performed By: #### HEYDI CarvajalMICAO #### [address] [address] Hgb 14.7 G/dL Normal 14.0-18.0 [facility] ([place]) Comment on above: Performed By: #### U A, UAMICAO #### [address] [address] MCH (RBC) [Entitic mass] 32.0 pg High 27.0-31.2 [facility] ([place] Comment on above: Performed By: #### U A, UAMICAO #### [address] [address] MCHC 36.0 G/dL High 31.8-35.4 [facility] ([place] Comment on above: Performed By: #### U A, UAMICAO #### [address] [address] MCV (RBC) [Entitic vol] 88.8 fL Normal 80.0-94.0 [facility] ([place] Comment on above: Performed By: #### U A, UAMICAO #### [address] [address] Platelet 191 10 3/mcL Normal 130-400 [facility] ([place] Comment on above: Performed By: #### U A, UAMICAO #### [address] [address] Platelet mean volume (Bld) [Entitic vol] 7.3 fL Low 7.4-10.4 [facility] ([place] Comment on above: Performed By: #### U A, UAMICAO #### [address] [address] RBC 4.61 10 6/mcL Normal 4.04-6.13 [facility] ([place] Comment on above: Performed By: #### U A, UAMICAO #### [address] [address] WBC 6.3 10 3/mcL Normal 4.6-10.8 [facility] ([place] Comment on above: Performed By: #### U A, UAMICAO #### [address] [address] CMPon 10-28-2023 Albumin Level 4.2 G/dL Normal 3.5-5.0 [facility] ([place] Comment on above: Performed By: #### U A, UAMICAO #### [address] [address] Albumin/Globulin [Mass ratio] 1.4 {ratio} Normal 1.1-2.5 [facility] ([place] Comment on above: Performed By: #### U A, UAMICAO #### [address] [address] ALP [Catalytic activity/Vol] 53 U/L Normal 40-135 [facility] ([place] Comment on above: Performed By: #### U A, UAMICAO #### [address] [address] ALT [Catalytic activity/Vol] 37 U/L Normal 16-63 [facility] ([place] Comment on above: Performed By: #### U A, UAMICAO #### [address] [address] AST [Catalytic activity/Vol] 21 U/L Normal 10-40 [facility] ([place] Comment on above: Performed By: #### U A, UAMICAO #### [address] [address] Bili Total 0.9 mg/dL Normal 0.2-1.0 [facility] ([place] Comment on above: Result Comment: Use of this assay is not recommended for patients undergoing treatment with eltrombopag due to the potential for falsely elevated results. Performed By: #### U A, UAMICAO #### [address] [address] BUN/Creatinine Ratio 16 ratio Normal 7-27 [facility] ([place]) Comment on above: Performed By: #### U A, UAMICAO #### [address] [address] Calcium [Mass/Vol] 9.0 mg/dL Normal 8.4-10.2 [facility] ([place]) Comment on above: Performed By: #### U David UAMICAO #### [address] [address] Chloride [Moles/Vol] 101 mmol/L Normal 98-107 [facility] ([place] Comment on above: Performed By: #### U A UAMICAO #### [address] [address] CO2 [Moles/Vol] 27 mmol/L Normal 22-29 [facility] ([place] Comment on above: Performed By: #### U David UAMICAO #### [address] [address] Creatinine [Mass/Vol] 1.05 mg/dL Normal 0.70-1.30 [facility] ([place] Comment on above: Performed By: #### U David UAMICAO #### [address] [address] Electrolyte Balance 11.0 mEq/L Normal 4.0-15.0 [facility] ([place]) Comment on above: Performed By: #### U David UAMICAO #### [address] [address] Globulin 2.9 G/dL Normal [facility] ([place] Comment on above: Performed By: #### U David UAMICAO #### [address] [address] Glucose [Mass/Vol] 181 mg/dL High 70-105 [facility] ([place]) Comment on above: Performed By: #### U David UAMICAO #### [address] [address] Potassium [Moles/Vol] 4.2 mmol/L Normal 3.5-5.1 [facility] ([place] Comment on above: Performed By: #### U A UAMICAO #### [address] [address] Sodium [Moles/Vol] 139 mmol/L Normal 136-145 [facility] ([place] Comment on above: Performed By: #### U A UAMICAO #### [place] [address] [place], [place] [address] Total Protein 7.1 G/dL Normal 6.4-8.2 [facility] ([place] Comment on above: Performed By: #### U A, UAMICAO #### [facility] [address] [place], [place] [address] Urea nitrogen [Mass/Vol] 17 mg/dL Normal 7-18 [facility] ([place] Comment on above: Performed By: #### U A UAMICAO #### [address] [place] [address] [place], [place] [address] LABORATORYOrdered By: Lakeisha Alford on 10-28-2023 Albumin DL <= 20 mg/L (U) [Mass/Vol] 3829 mcg/dL Invalid Interpretation Code AO ADM SS Albumin/Creatinine DL <= 20 mg/L (U) [Mass ratio] 15 mcg/mg Normal 0 - 30 mcg/mg AO ADM SS Creatinine (U) [Mass/Vol] 249.6 mg/dL Normal 39.0 - 259.0 mg/dL AO ADM SS Cholesterol [Mass/Vol] 130 mg/dL Normal 0 - 200 mg/dL AO ADM SS Comment on above: Interpretive Data: C holesterol Reference Interval: Less than 200 Desirable 200-239 Borderline high risk 240 and above High risk Cholesterol in HDL [Mass/Vol] 40 mg/dL Normal 40 - 60 mg/dL AO ADM SS Cholesterol in LDL [Mass/Vol] 21 mg/dL Normal 0 - 130 mg/dL AO ADM SS Triglyceride [Mass/Vol] 344 mg/dL High 0 - 150 mg/dL AO ADM SS Comment on above: Interpretive Data: T riglyceride Reference Interval: Less than 150 Normal 150-199 Borderline high risk 200-499 High risk 500 or higher Very high risk LABORATORYOrdered By: SYSTEM SYSTEM on 10-28-2023 Basophil, Absolute 0.0 103/mcL Normal 0.0 - 0.2 10^3/mcL AO Workflow SS Basophils/100 WBC (Bld) 0.4 % Normal 0.0 - 2.5 % AO Workflow SS Eosinophil, Absolute 0.4 103/mcL Normal 0.0 - 0.4 10^3/mcL AO Workflow SS Eosinophils/100 WBC (Bld) 6.5 % Normal 0.0 - 7.0 % AO Workflow SS Erythrocyte distribution width (RBC) [Ratio] 13.2 % Normal 11.5 - 14.5 % AO Workflow SS Hematocrit (Bld) [Volume fraction] 40.9 % Low 42.0 - 52.0 % AO Workflow SS Hemoglobin (Bld) [Mass/Vol] 14.7 G/dL Normal 14.0 - 18.0 G/dL AO Workflow SS Lymphocyte, Absolute 2.1 103/mcL Normal 0.8 - 3.9 10^3/mcL AO Workflow SS Lymphocytes/100 WBC (Bld) 33.2 % Normal 10.0 - 50.0 % AO Workflow SS MCH (RBC) [Entitic mass] 32.0 pg High 27.0 - 31.2 pg AO Workflow SS MCHC 36.0 G/dL High 31.8 - 35.4 G/dL AO Workflow SS MCV (RBC) [Entitic vol] 88.8 fL Normal 80.0 - 94.0 fL AO Workflow SS Monocyte, Absolute 0.5 103/mcL Normal 0.2 - 1.0 10^3/mcL AO Workflow SS Monocytes/100 WBC (Bld) 8.6 % Normal 1.7 - 13.0 % AO Workflow SS Neutrophil, Absolute 3.2 103/mcL Normal 2.9 - 6.2 10^3/mcL AO Workflow SS Neutrophils/100 WBC (Bld) 51.3 % Normal 37.0 - 80.0 % AO Workflow SS Platelet mean volume (Bld) [Entitic vol] 7.3 fL Low 7.4 - 10.4 fL AO Workflow SS Platelets (Bld) [#/Vol] 191 103/mcL Normal 130 - 400 10^3/mcL AO Workflow SS RBC (Bld) [#/Vol] 4.61 106/mcL Normal 4.04 - 6.1 3 10^6/mcL AO Workflow SS WBC (Bld) [#/Vol] 6.3 103/mcL Normal 4.6 - 10.8 10^3/mcL AO Workflow SS 25-hydroxyvitamin D3 [Mass/Vol] 87.6 ng/mL Invalid Interpretation Code AO ADM SS Comment on above: Interpretive Data: I nterpretive Values Based on Total 25(OH) Vitamin D: Deficient <20 ng/mL Insufficient 20 - <30 ng/mL Sufficient 30-100 ng/mL Albumin BCP dye [Mass/Vol] 4.2 G/dL Normal 3.5 - 5.0 G/dL AO ADM SS Albumin/Globulin [Mass ratio] 1.4 {ratio} Normal 1.1 - 2.5 ratio AO ADM SS ALP [Catalytic activity/Vol] 53 U/L Normal 40 - 135 U/L AO ADM SS ALT With P-5'-P [Catalytic activity/Vol] 37 U/L Normal 16 - 63 U/L AO ADM SS AST With P-5'-P [Catalytic activity/Vol] 21 U/L Normal 10 - 40 U/L AO ADM SS Bilirubin [Mass/Vol] 0.9 mg/dL Normal 0.2 - 1.0 mg/dL AO ADM SS Comment on above: Interpretive Data: U se of this assay is not recommended for patients undergoing treatment with eltrombopag due to the potential for falsely elevated results. Calcium [Mass/Vol] 9.0 mg/dL Normal 8.4 - 10. 2 mg/dL AO ADM SS Chloride [Moles/Vol] 101 mmol/L Normal 98 - 107 mmol/L AO ADM SS CO2 [Moles/Vol] 27 mmol/L Normal 22 - 29 mmol/L AO ADM SS Creatinine [Mass/Vol] 1.05 mg/dL Normal 0.70 - 1.30 mg/dL AO ADM SS Electrolyte Balance 11.0 mEq/L Normal 4.0 - 15 .0 mEq/L AO ADM SS GFR/1.73 sq M.predicted among blacks MDRD (S/P/Bld) [Vol rate/Area] 88 ml/min/1.73sqm Invalid Interpretation Code AO Chemistry S Comment on above: Interpretive Data: GFR Population mean for , Non- Americans Ages 20-29 = 116 mL/min/1.73 sq.m. Ages 30-39 = 107 mL/min/1.73 sq.m. Ages 40-49 = 99 mL/min/1.73 sq.m. Ages 50-59 = 93 mL/min/1.73 sq.m. Ages 60-69 = 85 mL/min/1.73 sq.m. Ages 70+ = 75 mL/min/1.73 sq.m. Chronic Kidney Disease: Less than 60 mL/min/1.73 square meters End Stage Renal Disease: Less than 15 mL/min/1.73 square meters GFR/1.73 sq M.predicted among non-blacks MDRD (S/P/Bld) [Vol rate/Area] 73 ml/min/1.73sqm Invalid Interpretation Code AO Chemistry S Comment on above: Interpretive Data: GFR Population mean for , Non- Americans Ages 20-29 = 116 mL/min/1.73 sq.m. Ages 30-39 = 107 mL/min/1.73 sq.m. Ages 40-49 = 99 mL/min/1.73 sq.m. Ages 50-59 = 93 mL/min/1.73 sq.m. Ages 60-69 = 85 mL/min/1.73 sq.m. Ages 70+ = 75 mL/min/1.73 sq.m. Chronic Kidney Disease: Less than 60 mL/min/1.73 square meters End Stage Renal Disease: Less than 15 mL/min/1.73 square meters Globulin 2.9 G/dL Invalid Interpretation Code AO ADM SS Glucose [Mass/Vol] 181 mg/dL High 70 - 105 mg/dL AO ADM SS HbA1c (Bld) [Mass fraction] 7.0 % High 4.3 - 6.4 % AO ADM SS Potassium [Moles/Vol] 4.2 mmol/L Normal 3.5 - 5.1 mmol/L AO ADM SS Protein [Mass/Vol] 7.1 G/dL Normal 6.4 - 8.2 G/dL AO ADM SS Sodium [Moles/Vol] 139 mmol/L Normal 136 - 145 mmol/L AO ADM SS TSH Qn 2.51 m[IU]/L Normal 0.36 - 3.74 mcIU/mL AO ADM SS Urea nitrogen [Mass/Vol] 17 mg/dL Normal 7 - 18 mg/dL AO ADM SS Urea nitrogen/Creatinine [Mass ratio] 16 ratio Normal 7 - 27 ratio AO ADM SS LIPIDon 10-28-2023 Cholesterol [Mass/Vol] 130 mg/dL Normal 0-200 [facility] ([place]) Comment on above: Result Comment: Chol esterol Reference Interval: Less than 200 Desirable 200-239 Borderline high risk 240 and above High risk Performed By: #### A 1C, BMP, GFR #### [address] [address] Cholesterol in HDL [Mass/Vol] 40 mg/dL Normal 40-60 [facility] ([place]) Comment on above: Performed By: #### A 1C, BMP, GFR #### [address] [address] Cholesterol in LDL [Mass/Vol] 21 mg/dL Normal 0-130 [facility] ([place]) Comment on above: Performed By: #### A 1C, BMP, GFR #### [address] [address] Triglyceride [Mass/Vol] 344 mg/dL High 0-150 [facility] ([place]) Comment on above: Result Comment: Trig lyceride Reference Interval: Less than 150 Normal 150-199 Borderline high risk 200-499 High risk 500 or higher Very high risk Performed By: #### A 1C, BMP, GFR #### [address] [address] MALBRon 10-28-2023 U Creatinine 249.6 mg/dL Normal 39.0-259.0 [facility] ([place]) Comment on above: Performed By: #### U David UAMICAO #### [address] [address] U Microalb 3829 mcg/dL Normal [facility] ([place]) Comment on above: Performed By: #### U David UAMICAO #### [address] [address] U Ratio Alb/Cre 15 mcg/mg Normal 0-30 [facility] ([place]) Comment on above: Performed By: #### U David UAMICAO #### [address] [address] TSHon 10-28-2023 TSH Qn 2.51 m[IU]/L Normal 0.36-3.74 [facility] ([place]) Comment on above: Performed By: #### U A UAMICAO #### [address] [address] VIDHon 10-28-2023 Vit. D 25-Hydroxy 87.6 ng/mL Normal [facility] ([place]) Comment on above: Result Comment: Inte rpretive Values Based on Total 25(OH) Vitamin D: Deficient <20 ng/mL Insufficient 20 - <30 ng/mL Sufficient 30-100 ng/mL Performed By: #### IZA Carvajal #### [address] [address] LESION TREATMENTon 4 Radiology Study observation (narrative) [facility] CREAT/GFRon 08-16-2023 Creatinine [Mass/Vol] 0.66 mg/dL Low 0.70 - 1.30 mg/dL [facility] GFR/1.73 sq M.predicted CKD-EPI (S/P/Bld) [Vol rate/Area] - PINF [facility] Comment on above: Reported eGFR is bas ed on the CKD-EPI 2020 equation using creatinine, age, and sex. Interpretation and review of laboratory results Abnormal [facility] Test performed at ad dress of the patient encounter. [facility] LESION TREATMENTon 4 Izaiah Maurer MD 2023 10:37 AM LESION TREATMENT Date/Time: 08/16/2023 9:00 AM Performed by: Izaiah Maurer MD Authorized by: Izaiah Maurer MD The attending physician was present for the entire procedure. Procedure Details: Procedure performed: Biopsy of the penis. 8 mL of lidocaine 1% used to locally anesthetize area. There was/were 1 anogenital lesion(s). Lesion 1 size: 0.5 (cm). The final incision was 0.5 cm in length. The wound(s) was/were closed with Biosin / Monocryl 3-0 sutures. A specimen was collected and was sent for pathology. Post-Procedure Details: Complications: There were no complications. The procedure was tolerated well. Estimated blood loss: minimal The wound was dressed with antibiotic ointment. Post-procedure education provided. Follow up in 10 - 12 days. Pathology results discussion needed at that time. [facility] .GFRon 06-14-2023 GFR 89 ml/min/1.73sqm Normal [facility] ([place]) Comment on above: Result Comment: GFR Population mean for , Non- Americans Ages 20-29 = 116 mL/min/1.73 sq.m. Ages 30-39 = 107 mL/min/1.73 sq.m. Ages 40-49 = 99 mL/min/1.73 sq.m. Ages 50-59 = 93 mL/min/1.73 sq.m. Ages 60-69 = 85 mL/min/1.73 sq.m. Ages 70+ = 75 mL/min/1.73 sq.m. Chronic Kidney Disease: Less than 60 mL/min/1.73 square meters End Stage Renal Disease: Less than 15 mL/min/1.73 square meters Performed By: #### Mojgan BAPTISTE, BMP #### [address] [address] GFR Non- 74 ml/min/1.73sqm Normal [facility] ([place]) Comment on above: Result Comment: GFR Population mean for , Non- Americans Ages 20-29 = 116 mL/min/1.73 sq.m. Ages 30-39 = 107 mL/min/1.73 sq.m. Ages 40-49 = 99 mL/min/1.73 sq.m. Ages 50-59 = 93 mL/min/1.73 sq.m. Ages 60-69 = 85 mL/min/1.73 sq.m. Ages 70+ = 75 mL/min/1.73 sq.m. Chronic Kidney Disease: Less than 60 mL/min/1.73 square meters End Stage Renal Disease: Less than 15 mL/min/1.73 square meters Performed By: #### Mojgan BAPTISTE, BMP #### [address] [address] BMPon 06-14-2023 BUN/Creatinine Ratio 18 ratio Normal 7-27 [facility] ([place]) Comment on above: Performed By: #### G , BMP #### Christ[address] [address] Calcium [Mass/Vol] 9.2 mg/dL Normal 8.4-10.2 [facility] ([place]) Comment on above: Performed By: #### Mojgan BAPTISTE, BMP #### [address] [address] Chloride [Moles/Vol] 102 mmol/L Normal 98-107 [facility] ([place]) Comment on above: Performed By: #### Mojgan BAPTISTE, BMP #### [address] [address] CO2 [Moles/Vol] 27 mmol/L Normal 22-29 [facility] ([place] Comment on above: Performed By: #### Mojgan BAPTISTE, BMP #### [address] [address] Creatinine [Mass/Vol] 1.04 mg/dL Normal 0.70-1.30 [facility] ([place]) Comment on above: Performed By: #### Mojgan BAPTISTE, BMP #### [address] [address] Electrolyte Balance 12.0 mEq/L Normal 4.0-15.0 [facility] ([place]) Comment on above: Performed By: #### Mojgan BAPTISTE, BMP #### [address] [address] Glucose [Mass/Vol] 133 mg/dL High 70-105 [facility] ([place]) Comment on above: Performed By: #### Mojgan BAPTISTE, BMP #### [address] [address] Potassium [Moles/Vol] 4.1 mmol/L Normal 3.5-5.1 [facility] ([place] Comment on above: Performed By: #### Mojgan BAPTISTE, BMP #### [address] [address] Sodium [Moles/Vol] 141 mmol/L Normal 136-145 [facility] ([place]) Comment on above: Performed By: #### Mojgan BAPTISTE, BMP #### [address] [address] Urea nitrogen [Mass/Vol] 19 mg/dL High 7-18 [facility] ([place] Comment on above: Performed By: #### G , RTOY #### [address] [place] [id number] LABORATORYOrdered By: SYSTEM SYSTEM on 06-14-2023 Calcium [Mass/Vol] 9.2 mg/dL Normal 8.4 - 10. 2 mg/dL AO ADM SS Chloride [Moles/Vol] 102 mmol/L Normal 98 - 107 mmol/L AO ADM SS CO2 [Moles/Vol] 27 mmol/L Normal 22 - 29 mmol/L AO ADM SS Creatinine [Mass/Vol] 1.04 mg/dL Normal 0.70 - 1.30 mg/dL AO ADM SS Electrolyte Balance 12.0 mEq/L Normal 4.0 - 15 .0 mEq/L AO ADM SS GFR/1.73 sq M.predicted among blacks MDRD (S/P/Bld) [Vol rate/Area] 89 ml/min/1.73sqm Invalid Interpretation Code AO Chemistry S Comment on above: Interpretive Data: GFR Population mean for , Non- Americans Ages 20-29 = 116 mL/min/1.73 sq.m. Ages 30-39 = 107 mL/min/1.73 sq.m. Ages 40-49 = 99 mL/min/1.73 sq.m. Ages 50-59 = 93 mL/min/1.73 sq.m. Ages 60-69 = 85 mL/min/1.73 sq.m. Ages 70+ = 75 mL/min/1.73 sq.m. Chronic Kidney Disease: Less than 60 mL/min/1.73 square meters End Stage Renal Disease: Less than 15 mL/min/1.73 square meters GFR/1.73 sq M.predicted among non-blacks MDRD (S/P/Bld) [Vol rate/Area] 74 ml/min/1.73sqm Invalid Interpretation Code AO Chemistry S Comment on above: Interpretive Data: GFR Population mean for , Non- Americans Ages 20-29 = 116 mL/min/1.73 sq.m. Ages 30-39 = 107 mL/min/1.73 sq.m. Ages 40-49 = 99 mL/min/1.73 sq.m. Ages 50-59 = 93 mL/min/1.73 sq.m. Ages 60-69 = 85 mL/min/1.73 sq.m. Ages 70+ = 75 mL/min/1.73 sq.m. Chronic Kidney Disease: Less than 60 mL/min/1.73 square meters End Stage Renal Disease: Less than 15 mL/min/1.73 square meters Glucose [Mass/Vol] 133 mg/dL High 70 - 105 mg/dL AO ADM SS Potassium [Moles/Vol] 4.1 mmol/L Normal 3.5 - 5.1 mmol/L AO ADM SS Sodium [Moles/Vol] 141 mmol/L Normal 136 - 145 mmol/L AO ADM SS Urea nitrogen [Mass/Vol] 19 mg/dL High 7 - 18 mg/dL AO ADM SS Urea nitrogen/Creatinine [Mass ratio] 18 ratio Normal 7 - 27 ratio AO ADM SS .Auto Diffon 06-13-2023 Basophil, Absolute 0.1 10 3/mcL Normal 0.0-0.2 [facility] ([place]) Comment on above: Performed By: #### David Escalante, BMP, GFR #### [address] [address] Basophils/100 WBC (Bld) 0.9 % Normal 0.0-2.5 [facility] ([place]) Comment on above: Performed By: ###Lito Escalante, BMP, GFR #### [address] [address] Eosinophil, Absolute 0.4 10 3/mcL Normal 0.0-0.4 [facility] ([place]) Comment on above: Performed By: ###Lito Escalante, BMP, GFR #### [address] [address] Eosinophils/100 WBC (Bld) 5.8 % Normal 0.0-7.0 [facility] ([place]) Comment on above: Performed By: ###Lito Escalante, BMP, GFR #### [address] [address] Lymphocyte, Absolute 2.0 10 3/mcL Normal 0.8-3.9 [facility] ([place]) Comment on above: Performed By: ###Lito Escalante, BMP, GFR #### [address] [address] Lymphocytes/100 WBC (Bld) 29.4 % Normal 10.0-50.0 [facility] ([place]) Comment on above: Performed By: #### A 1C, BMP, GFR #### [address] [address] Monocyte, Absolute 0.4 10 3/mcL Normal 0.2-1.0 [facility] ([place]) Comment on above: Performed By: #### A 1C, BMP, GFR #### [address] [address] Monocytes/100 WBC (Bld) 6.6 % Normal 1.7-13.0 [facility] ([place]) Comment on above: Performed By: #### A Boris, BMP, GFR #### [address] [address] Neutrophils/100 WBC (Bld) 57.3 % Normal 37.0-80.0 [facility] ([place]) Comment on above: Performed By: #### A 1C, BMP, GFR #### [address] [address] .NEUABSon 06-13-2023 Neutrophil, Absolute 3.8 10 3/mcL Normal 2.9-6.2 [facility] ([place]) Comment on above: Performed By: #### A 1C, BMP, GFR #### [address] [address] CBCon 06-13-2023 Erythrocyte distribution width (RBC) [Ratio] 13.3 % Normal 11.5-14.5 [facility] ([place] Comment on above: Performed By: #### A 1C, BMP, GFR #### [address] [address] Hematocrit (Bld) [Volume fraction] 42.0 % Normal 42.0-52.0 [facility] ([place] Comment on above: Performed By: #### A 1C, BMP, GFR #### [address] [address] Hgb 14.9 G/dL Normal 14.0-18.0 [facility] ([place]) Comment on above: Performed By: #### TROY Rios, GFR #### [address] [address] MCH (RBC) [Entitic mass] 31.3 pg High 27.0-31.2 [facility] ([place] Comment on above: Performed By: #### TROY Rios, GFR #### [address] [address] MCHC 35.4 G/dL Normal 31.8-35.4 [facility] ([place]) Comment on above: Performed By: #### TROY Rios, GFR #### [address] [address] MCV (RBC) [Entitic vol] 88.5 fL Normal 80.0-94.0 [facility] ([place] Comment on above: Performed By: ###TROY Lopez, GFR #### [address] [address] Platelet 199 10 3/mcL Normal 130-400 [facility] ([place] Comment on above: Performed By: #### TROY Rios, GFR #### [address] [address] Platelet mean volume (Bld) [Entitic vol] 7.4 fL Normal 7.4-10.4 [facility] ([place]) Comment on above: Performed By: #### TROY Rios, GFR #### [address] [address] RBC 4.75 10 6/mcL Normal 4.04-6.13 [facility] ([place] Comment on above: Performed By: #### TROY Rios, GFR #### [address] [address] WBC 6.7 10 3/mcL Normal 4.6-10.8 [facility] ([place] Comment on above: Performed By: ###TROY Lopez, GFR #### [address] [address] HCVon 06-13-2023 Hep C Ab Non-Reactive Normal Non-Reactive [facility] ([place] Comment on above: Performed By: #### A TROY Escalante, GFR #### [address] [address] Hep C Ab Int Normal [facility] ([place]) Comment on above: Result Comment: Nonr eactive: Samples with a value < 0.80 are considered nonreactive (negative) for antibodies to HCV. A negative test result does not exclude the possibility of exposure to or infection with HCV. HCV antibodies may be undetectable in some stages of the infection and in some clinical conditions. See Interp Performed By: #### TROY Rios, GFR #### [address] [place] [address] MALBRon 06-13-2023 U Creatinine 141.0 mg/dL Normal 39.0-259.0 [facility] ([place]) Comment on above: Performed By: #### M ALBR #### [place] [id number] U Microalb 2392 mcg/dL Normal [facility] ([place] Comment on above: Performed By: #### M ALBR #### [address] [address] U Ratio Alb/Cre 17 mcg/mg Normal 0-30 [facility] ([place] Comment on above: Performed By: #### M ALBR #### [place] [id number] PSAon 06-13-2023 Prostate Specific Antigen 0.24 ng/mL Normal 0.00-4.00 [facility] ([place] Comment on above: Performed By: #### TROY Rios, GFR #### [address] [address] LABORATORYOrdered By: SYSTEM SYSTEM on 11-01-2022 25-hydroxyvitamin D3 [Mass/Vol] 90.3 ng/mL Invalid Interpretation Code AO ADM SS Albumin BCP dye [Mass/Vol] 4.1 G/dL Invalid Interpretation Code 3.5 - 5.0 G/dL AO ADM SS Albumin/Globulin [Mass ratio] 1.5 {ratio} Invalid Interpretation Code 1.1 - 2.5 ratio AO ADM SS ALP [Catalytic activity/Vol] 49 U/L Invalid Interpretation Code 40 - 135 U/L AO ADM SS ALT With P-5'-P [Catalytic activity/Vol] 28 U/L Invalid Interpretation Code 16 - 63 U/L AO ADM SS AST With P-5'-P [Catalytic activity/Vol] 23 U/L Invalid Interpretation Code 10 - 40 U/L AO ADM SS Bilirubin [Mass/Vol] 1.0 mg/dL Invalid Interpretation Code 0.2 - 1.0 mg/dL AO ADM SS Calcium [Mass/Vol] 9.4 mg/dL Invalid Interpretation Code 8.4 - 10.2 mg/dL AO ADM SS Chloride [Moles/Vol] 103 mmol/L Invalid Interpretation Code 98 - 107 mmol/L AO ADM SS CO2 [Moles/Vol] 28 mmol/L Invalid Interpretation Code 22 - 29 mmol/L AO ADM SS Creatinine [Mass/Vol] 1.02 mg/dL Invalid Interpretation Code 0.70 - 1.30 mg/dL AO ADM SS Electrolyte Balance 11.0 mEq/L Invalid Interpretation Code 4.0 - 15.0 mEq/L AO ADM SS GFR/1.73 sq M.predicted among blacks MDRD (S/P/Bld) [Vol rate/Area] 91 ml/min/1.73sqm Invalid Interpretation Code AO Chemistry S GFR/1.73 sq M.predicted among non-blacks MDRD (S/P/Bld) [Vol rate/Area] 75 ml/min/1.73sqm Invalid Interpretation Code AO Chemistry S Globulin 2.8 G/dL Invalid Interpretation Code AO ADM SS Glucose [Mass/Vol] 173 mg/dL Invalid Interpretation Code 70 - 105 mg/dL AO ADM SS HbA1c (Bld) [Mass fraction] 6.5 % Invalid Interpretation Code 4.3 - 6.4 % AO ADM SS Potassium [Moles/Vol] 4.4 mmol/L Invalid Interpretation Code 3.5 - 5.1 mmol/L AO ADM SS Protein [Mass/Vol] 6.9 G/dL Invalid Interpretation Code 6.4 - 8.2 G/dL AO ADM SS Sodium [Moles/Vol] 142 mmol/L Invalid Interpretation Code 136 - 145 mmol/L AO ADM SS TSH Qn 2.28 m[IU]/L Invalid Interpretation Code 0.36 - 3.74 mcIU/mL AO ADM SS Urea nitrogen [Mass/Vol] 18 mg/dL Invalid Interpretation Code 7 - 18 mg/dL AO ADM SS Urea nitrogen/Creatinine [Mass ratio] 18 ratio Invalid Interpretation Code 7 - 27 ratio AO ADM SS LABORATORYOrdered By: Megan Chapman on 11-01-2022 Cholesterol [Mass/Vol] 115 mg/dL Invalid Interpretation Code 0 - 200 mg/dL AO ADM SS Cholesterol in HDL [Mass/Vol] 48 mg/dL Invalid Interpretation Code 40 - 60 mg/dL AO ADM SS Cholesterol in LDL [Mass/Vol] 42 mg/dL Invalid Interpretation Code 0 - 130 mg/dL AO ADM SS Triglyceride [Mass/Vol] 123 mg/dL Invalid Interpretation Code 0 - 150 mg/dL AO ADM SS LABORATORYOrdered By: Stacy Sparks on 04-20-2022 Albumin DL <= 20 mg/L (U) [Mass/Vol] 974 mcg/dL Invalid Interpretation Code AO ADM SS Albumin/Creatinine DL <= 20 mg/L (U) [Mass ratio] 8 mcg/mg Invalid Interpretation Code 0 - 30 mcg/mg AO ADM SS Creatinine (U) [Mass/Vol] 117.4 mg/dL Invalid Interpretation Code 39.0 - 259.0 mg/dL AO ADM SS LABORATORYOrdered By: Neto Ramirez on 04-20-2022 Albumin BCP dye [Mass/Vol] 4.2 G/dL Invalid Interpretation Code 3.5 - 5.0 G/dL AO ADM SS Albumin/Globulin [Mass ratio] 1.4 {ratio} Invalid Interpretation Code 1.1 - 2.5 ratio AO ADM SS ALP [Catalytic activity/Vol] 49 U/L Invalid Interpretation Code 40 - 135 U/L AO ADM SS ALT With P-5'-P [Catalytic activity/Vol] 25 U/L Invalid Interpretation Code 16 - 63 U/L AO ADM SS AST With P-5'-P [Catalytic activity/Vol] 18 U/L Invalid Interpretation Code 10 - 40 U/L AO ADM SS Bilirubin [Mass/Vol] 0.7 mg/dL Invalid Interpretation Code 0.2 - 1.0 mg/dL AO ADM SS Calcium [Mass/Vol] 9.5 mg/dL Invalid Interpretation Code 8.4 - 10.2 mg/dL AO ADM SS Chloride [Moles/Vol] 100 mmol/L Invalid Interpretation Code 98 - 107 mmol/L AO ADM SS Cholesterol [Mass/Vol] 115 mg/dL Invalid Interpretation Code 0 - 200 mg/dL AO ADM SS Cholesterol in HDL [Mass/Vol] 48 mg/dL Invalid Interpretation Code 40 - 60 mg/dL AO ADM SS Cholesterol in LDL [Mass/Vol] 42 mg/dL Invalid Interpretation Code 0 - 130 mg/dL AO ADM SS CO2 [Moles/Vol] 29 mmol/L Invalid Interpretation Code 22 - 29 mmol/L AO ADM SS Creatinine [Mass/Vol] 1.04 mg/dL Invalid Interpretation Code 0.70 - 1.30 mg/dL AO ADM SS Electrolyte Balance 11.0 mEq/L Invalid Interpretation Code 4.0 - 15.0 mEq/L AO ADM SS Free T3 [Mass/Vol] 2.93 pg/mL Invalid Interpretation Code 2.30 - 4.00 pg/mL AO ADM SS Free T4 [Mass/Vol] 0.85 ng/dL Invalid Interpretation Code 0.76 - 1.46 ng/dL AO ADM SS Globulin 2.9 G/dL Invalid Interpretation Code AO ADM SS Glucose [Mass/Vol] 155 mg/dL Invalid Interpretation Code 70 - 105 mg/dL AO ADM SS HbA1c (Bld) [Mass fraction] 6.5 % Invalid Interpretation Code 4.3 - 6.4 % AO ADM SS Potassium [Moles/Vol] 4.3 mmol/L Invalid Interpretation Code 3.5 - 5.1 mmol/L AO ADM SS Protein [Mass/Vol] 7.1 G/dL Invalid Interpretation Code 6.4 - 8.2 G/dL AO ADM SS Sodium [Moles/Vol] 140 mmol/L Invalid Interpretation Code 136 - 145 mmol/L AO ADM SS Triglyceride [Mass/Vol] 125 mg/dL Invalid Interpretation Code 0 - 150 mg/dL AO ADM SS TSH Qn 1.93 m[IU]/L Invalid Interpretation Code 0.36 - 3.74 mcIU/mL AO ADM SS Urea nitrogen [Mass/Vol] 20 mg/dL Invalid Interpretation Code 7 - 18 mg/dL AO ADM SS Urea nitrogen/Creatinine [Mass ratio] 19 ratio Invalid Interpretation Code 7 - 27 ratio AO ADM SS LABORATORYOrdered By: SYSTEM SYSTEM on 04-20-2022 GFR 90 ml/min/1.73sqm Invalid Interpretation Code AO Chemistry S GFR Non- 74 ml/min/1.73sqm Invalid Interpretation Code AO Chemistry S TPO Ab IA Qn unit/mL Invalid Interpretation Code 0 - 60 unit/mL AH ADM SS LABORATORYOrdered By: Stacy Sparks on 01-09-2022 Albumin DL <= 20 mg/L (U) [Mass/Vol] 1952 mcg/dL Invalid Interpretation Code AO ADM SS Albumin/Creatinine DL <= 20 mg/L (U) [Mass ratio] 8 mcg/mg Invalid Interpretation Code 0 - 30 mcg/mg AO ADM SS Creatinine (U) [Mass/Vol] 230.8 mg/dL Invalid Interpretation Code 39.0 - 259.0 mg/dL AO ADM SS Albumin BCP dye [Mass/Vol] 4.0 G/dL Invalid Interpretation Code 3.5 - 5.0 G/dL AO ADM SS Albumin/Globulin [Mass ratio] 1.5 {ratio} Invalid Interpretation Code 1.1 - 2.5 ratio AO ADM SS ALP [Catalytic activity/Vol] 41 U/L Invalid Interpretation Code 40 - 135 U/L AO ADM SS ALT With P-5'-P [Catalytic activity/Vol] 33 U/L Invalid Interpretation Code 16 - 63 U/L AO ADM SS AST With P-5'-P [Catalytic activity/Vol] 21 U/L Invalid Interpretation Code 10 - 40 U/L AO ADM SS Bilirubin [Mass/Vol] 0.5 mg/dL Invalid Interpretation Code 0.2 - 1.0 mg/dL AO ADM SS Calcium [Mass/Vol] 9.1 mg/dL Invalid Interpretation Code 8.4 - 10.2 mg/dL AO ADM SS Chloride [Moles/Vol] 101 mmol/L Invalid Interpretation Code 98 - 107 mmol/L AO ADM SS Cholesterol [Mass/Vol] 128 mg/dL Invalid Interpretation Code 0 - 200 mg/dL AO ADM SS Cholesterol in HDL [Mass/Vol] 41 mg/dL Invalid Interpretation Code 40 - 60 mg/dL AO ADM SS Cholesterol in LDL [Mass/Vol] 15 mg/dL Invalid Interpretation Code 0 - 130 mg/dL AO ADM SS CO2 [Moles/Vol] 27 mmol/L Invalid Interpretation Code 22 - 29 mmol/L AO ADM SS Creatinine [Mass/Vol] 1.04 mg/dL Invalid Interpretation Code 0.70 - 1.30 mg/dL AO ADM SS Electrolyte Balance 12.0 mEq/L Invalid Interpretation Code 4.0 - 15.0 mEq/L AO ADM SS Globulin 2.7 G/dL Invalid Interpretation Code AO ADM SS Glucose [Mass/Vol] 186 mg/dL Invalid Interpretation Code 70 - 105 mg/dL AO ADM SS HbA1c (Bld) [Mass fraction] 8.1 % Invalid Interpretation Code 4.3 - 6.4 % AO ADM SS Potassium [Moles/Vol] 4.2 mmol/L Invalid Interpretation Code 3.5 - 5.1 mmol/L AO ADM SS Protein [Mass/Vol] 6.7 G/dL Invalid Interpretation Code 6.4 - 8.2 G/dL AO ADM SS Sodium [Moles/Vol] 140 mmol/L Invalid Interpretation Code 136 - 145 mmol/L AO ADM SS Triglyceride [Mass/Vol] 361 mg/dL Invalid Interpretation Code 0 - 150 mg/dL AO ADM SS TSH Qn 4.53 m[IU]/L Invalid Interpretation Code 0.36 - 3.74 mcIU/mL AO ADM SS Urea nitrogen [Mass/Vol] 18 mg/dL Invalid Interpretation Code 7 - 18 mg/dL AO ADM SS Urea nitrogen/Creatinine [Mass ratio] 17 ratio Invalid Interpretation Code 27 ratio AO ADM SS Vit. D 25-Hydroxy 68.8 ng/mL Invalid Interpretation Code AO ADM SS LABORATORYOrdered By: SYSTEM SYSTEM on 01-09-2022 GFR 90 ml/min/1.73sqm Invalid Interpretation Code AO Chemistry S GFR Non- 74 ml/min/1.73sqm Invalid Interpretation Code AO Chemistry S LABORATORYOrdered By: Neto Ramirez on 08-10-2021 Albumin BCP dye [Mass/Vol] 4.0 G/dL Invalid Interpretation Code 3.5 - 5.0 G/dL AO ADM SS Albumin/Globulin [Mass ratio] 1.3 {ratio} Invalid Interpretation Code 1.1 - 2.5 ratio AO ADM SS ALP [Catalytic activity/Vol] 50 U/L Invalid Interpretation Code 40 - 135 U/L AO ADM SS ALT With P-5'-P [Catalytic activity/Vol] 42 U/L Invalid Interpretation Code 16 - 63 U/L AO ADM SS AST With P-5'-P [Catalytic activity/Vol] 24 U/L Invalid Interpretation Code 10 - 40 U/L AO ADM SS Bilirubin [Mass/Vol] 0.5 mg/dL Invalid Interpretation Code 0.2 - 1.0 mg/dL AO ADM SS Calcium [Mass/Vol] 8.9 mg/dL Invalid Interpretation Code 8.4 - 10.2 mg/dL AO ADM SS Chloride [Moles/Vol] 102 mmol/L Invalid Interpretation Code 98 - 107 mmol/L AO ADM SS Cholesterol [Mass/Vol] 123 mg/dL Invalid Interpretation Code 0 - 200 mg/dL AO ADM SS Cholesterol in HDL [Mass/Vol] 37 mg/dL Invalid Interpretation Code 40 - 60 mg/dL AO ADM SS Cholesterol in LDL [Mass/Vol] 21 mg/dL Invalid Interpretation Code 0 - 130 mg/dL AO ADM SS CO2 [Moles/Vol] 26 mmol/L Invalid Interpretation Code 22 - 29 mmol/L AO ADM SS Creatinine [Mass/Vol] 0.88 mg/dL Invalid Interpretation Code 0.70 - 1.30 mg/dL AO ADM SS Electrolyte Balance 11.0 mEq/L Invalid Interpretation Code 4.0 - 15.0 mEq/L AO ADM SS Globulin 3.0 G/dL Invalid Interpretation Code AO ADM SS Glucose [Mass/Vol] 229 mg/dL Invalid Interpretation Code 70 - 105 mg/dL AO ADM SS HbA1c (Bld) [Mass fraction] 8.7 % Invalid Interpretation Code 4.3 - 6.4 % AO ADM SS Potassium [Moles/Vol] 3.9 mmol/L Invalid Interpretation Code 3.5 - 5.1 mmol/L AO ADM SS Protein [Mass/Vol] 7.0 G/dL Invalid Interpretation Code 6.4 - 8.2 G/dL AO ADM SS Sodium [Moles/Vol] 139 mmol/L Invalid Interpretation Code 136 - 145 mmol/L AO ADM SS Triglyceride [Mass/Vol] 324 mg/dL Invalid Interpretation Code 0 - 150 mg/dL AO ADM SS Urea nitrogen [Mass/Vol] 22 mg/dL Invalid Interpretation Code 7 - 18 mg/dL AO ADM SS Urea nitrogen/Creatinine [Mass ratio] 25 ratio Invalid Interpretation Code 7 - 27 ratio AO ADM SS LABORATORYOrdered By: SYSTEM SYSTEM on 08-10-2021 GFR 109 ml/min/1.73sqm Invalid Interpretation Code AO Chemistry S GFR Non- 90 ml/min/1.73sqm Invalid Interpretation Code AO Chemistry S Vital Signs Date Time Vital Sign Value Performing Clinician Facility 01-04-2025 08:46-0400 Body height 195.[address] Vidal Juarez DO Work Phone: [facility] 01-04-2025 08:46-0400 Body mass index (BMI) [Ratio] 28.2 kg/m2 Dr. Vidal Juarez DO Work Phone: [facility] 01-04-2025 08:46-0400 Body temperature 99.1 [degF] Dr. Vidal Juarez DO Work Phone: [facility] 01-04-2025 08:46-0400 Body weight 108.[address] Vidal Juarez DO Work Phone: [facility] 01-04-2025 08:46-0400 Diastolic blood pressure 88 mm[Hg] Dr. Vidal Juarez DO Work Phone: [facility] 01-04-2025 08:46-0400 Heart rate 62 /min Dr. Vidal Juarez DO Work Phone: [facility] 01-04-2025 08:46-0400 Respiratory rate 16 /min Dr. Vidal Juarez DO Work Phone: [facility] 01-04-2025 08:46-0400 SaO2% (BldA) [Mass fraction] 95 % Dr. Vidal Juarez DO Work Phone: [facility] 01-04-2025 08:46-0400 Systolic blood pressure 140 mm[Hg] Dr. Vidal Juarez DO Work Phone: [facility] 11-17-2024 10:35-0400 Body height 195.6 cm Mark Ly MD Work Phone: [facility] 11-17-2024 10:35-0400 Body mass index (BMI) [Ratio] 28.7 kg/m2 Mark Ly MD Work Phone: [facility] 11-17-2024 10:35-0400 Body weight 109.77 kg Mark Ly MD Work Phone: [facility] 11-17-2024 10:35-0400 Heart rate 78 /min Mark Ly MD Work Phone: [facility] 11-17-2024 10:35-0400 SaO2% (BldA) [Mass fraction] 98 % Mark Ly MD Work Phone: [facility] 09-25-2024 14:03-0400 Body height 195.6 cm Izaiah Maurer MD Work Phone: [facility] 09-25-2024 14:03-0400 Body mass index (BMI) [Ratio] 28.7 kg/m2 Izaiah Maurer MD Work Phone: [facility] 09-25-2024 14:03-0400 Body temperature 97 [degF] Izaiah Maurer MD Work Phone: [facility] 09-25-2024 14:03-0400 Body weight 109.77 kg Izaiah Maurer MD Work Phone: [facility] 09-25-2024 14:03-0400 Diastolic blood pressure 88 mm[Hg] Izaiah Maurer MD Work Phone: [facility] 09-25-2024 14:03-0400 Heart rate 71 /min Izaiah Maurer MD Work Phone: [facility] 09-25-2024 14:03-0400 Respiratory rate 16 /min Izaiah Maurer MD Work Phone: [facility] 09-25-2024 14:03-0400 SaO2% (BldA) [Mass fraction] 99 % Izaiah Maurer MD Work Phone: [facility] 09-25-2024 14:03-0400 Systolic blood pressure 148 mm[Hg] Izaiah Maurer MD Work Phone: [facility] 09-25-2024 12:58-0400 Diastolic blood pressure 95 mm[Hg] Izaiah Maurer MD Work Phone: [facility] 09-25-2024 12:58-0400 Heart rate 80 /min Izaiah Maurer MD Work Phone: [facility] 09-25-2024 12:58-0400 Systolic blood pressure 146 mm[Hg] Izaiah Maurer MD Work Phone: [facility] 05-19-2024 08:55-0500 Body height 195.6 cm [facility] Infectious Disease Fellow 6 Work Phone: [facility] 05-19-2024 08:55-0500 Body mass index (BMI) [Ratio] 27.81 kg/m2 [facility] Infectious Disease Fellow 6 Work Phone: [facility] 05-19-2024 08:55-0500 Body weight 106.37 kg [facility] Infectious Disease Fellow 6 Work Phone: [facility] 05-19-2024 08:55-0500 Diastolic blood pressure 80 mm[Hg] [facility] Infectious Disease Fellow 6 Work Phone: [facility] 05-19-2024 08:55-0500 Heart rate 74 /min [facility] Infectious Disease Fellow 6 Work Phone: [facility] 05-19-2024 08:55-0500 SaO2% (BldA) [Mass fraction] 95 % [facility] Infectious Disease Fellow 6 Work Phone: [facility] 05-19-2024 08:55-0500 Systolic blood pressure 134 mm[Hg] [facility] Infectious Disease Fellow 6 Work Phone: [facility] 05-11-2024 14:35-0400 Diastolic blood pressure 64 mm[Hg] Joann Pereira APRN-MIXER ATTENDANT Work Phone: [facility] 05-11-2024 14:35-0400 Heart rate 83 /min Joann Pereira APRN-MIXER ATTENDANT Work Phone: [facility] 05-11-2024 14:35-0400 Systolic blood pressure 114 mm[Hg] Joann Pereira LISA-MIXER ATTENDANT Work Phone: [facility] 05-08-2024 13:38-0400 Body height 195.6 cm Izaiah Maurer MD Work Phone: [facility] 05-08-2024 13:38-0400 Body mass index (BMI) [Ratio] 28.54 kg/m2 Izaiah Maurer MD Work Phone: [facility] 05-08-2024 13:38-0400 Body temperature 97.7 [degF] Izaiah Maurer MD Work Phone: [facility] 05-08-2024 13:38-0400 Body weight 109.18 kg Izaiah Maurer MD Work Phone: [facility] 05-08-2024 13:38-0400 Diastolic blood pressure 75 mm[Hg] Izaiah Maurer MD Work Phone: [facility] 05-08-2024 13:38-0400 Heart rate 73 /min Izaiah Maurer MD Work Phone: [facility] 05-08-2024 13:38-0400 Respiratory rate 16 /min Izaiah Maurer MD Work Phone: [facility] 05-08-2024 13:38-0400 SaO2% (BldA) [Mass fraction] 99 % Izaiah Maurer MD Work Phone: [facility] 05-08-2024 13:38-0400 Systolic blood pressure 133 mm[Hg] Izaiah Maurer MD Work Phone: [facility] 04-22-2024 16:15-0400 Heart rate 68 /min Karla Arce MD Work Phone: [facility] 04-22-2024 16:15-0400 SaO2% (BldA) [Mass fraction] 93 % Karla Arce MD Work Phone: [facility] 04-22-2024 16:10-0400 Diastolic blood pressure 74 mm[Hg] Karla Arce MD Work Phone: [facility] 04-22-2024 16:10-0400 Respiratory rate 18 /min Karla Arce MD Work Phone: [facility] 04-22-2024 16:10-0400 Systolic blood pressure 126 mm[Hg] Karla Arce MD Work Phone: [facility] 04-22-2024 14:02-0400 Body temperature 97.81 [degF] Karla Arce MD Work Phone: [facility] 04-21-2024 00:13-0400 Body height 195.6 cm Karla Arce MD Work Phone: [facility] 04-21-2024 00:13-0400 Body mass index (BMI) [Ratio] 28.33 kg/m2 Karla Arce MD Work Phone: [facility] 04-21-2024 00:13-0400 Body weight 108.36 kg Karla Arce MD Work Phone: [facility] 04-14-2024 12:03-0400 Body temperature 98.01 [degF] Cyndy Panchal MD Work Phone: [facility] 04-14-2024 12:03-0400 Diastolic blood pressure 73 mm[Hg] Cyndy Panchal MD Work Phone: [facility] 04-14-2024 12:03-0400 Heart rate 66 /min Cyndy Panchal MD Work Phone: [facility] 04-14-2024 12:03-0400 Respiratory rate 16 /min yCndy Panchal MD Work Phone: [facility] 04-14-2024 12:03-0400 SaO2% (BldA) [Mass fraction] 97 % Cyndy Panchal MD Work Phone: [facility] 04-14-2024 12:03-0400 Systolic blood pressure 125 mm[Hg] Cyndy Panchal MD Work Phone: [facility] 04-13-2024 05:17-0400 Body mass index (BMI) [Ratio] 27.87 kg/m2 Cyndy Panchal MD Work Phone: [facility] 04-13-2024 05:17-0400 Body weight 106.59 kg Cyndy Panchal MD Work Phone: [facility] 04-12-2024 21:18-0400 Body height 195.6 cm Cyndy Panchal MD Work Phone: [facility] 04-11-2024 11:06-0400 Body temperature 98.2 [degF] Izaiah Maurer MD Work Phone: [facility] 04-11-2024 11:06-0400 Diastolic blood pressure 75 mm[Hg] Izaiah Maurer MD Work Phone: [facility] 04-11-2024 11:06-0400 Heart rate 63 /min Izaiah Maurer MD Work Phone: [facility] 04-11-2024 11:06-0400 Respiratory rate 16 /min Izaiah Maurer MD Work Phone: [facility] 04-11-2024 11:06-0400 SaO2% (BldA) [Mass fraction] 96 % Izaiah Maurer MD Work Phone: [facility] 04-11-2024 11:06-0400 Systolic blood pressure 128 mm[Hg] Izaiah Maurer MD Work Phone: [facility] 04-09-2024 19:28-0400 Body temperature 97.81 [degF] Sumit Kong MD Work Phone: [facility] 04-09-2024 19:28-0400 Diastolic blood pressure 84 mm[Hg] Sumit Kong MD Work Phone: [facility] 04-09-2024 19:28-0400 Heart rate 76 /min Sumit Kong MD Work Phone: [facility] 04-09-2024 19:28-0400 Respiratory rate 12 /min Sumit Kong MD Work Phone: [facility] 04-09-2024 19:28-0400 SaO2% (BldA) [Mass fraction] 98 % Sumit Kong MD Work Phone: [facility] 04-09-2024 19:28-0400 Systolic blood pressure 117 mm[Hg] Sumit Kong MD Work Phone: [facility] 04-09-2024 09:39-0400 Body height 195.6 cm Sumit Kong MD Work Phone: [facility] 04-09-2024 09:39-0400 Body mass index (BMI) [Ratio] 27.75 kg/m2 Sumit Kong MD Work Phone: [facility] 04-09-2024 09:39-0400 Body weight 106.14 kg Sumit Kong MD Work Phone: [facility] 04-03-2024 12:04-0400 Body height 195.6 cm Izaiah Maurer MD Work Phone: [facility] 04-03-2024 12:04-0400 Body mass index (BMI) [Ratio] 28.08 kg/m2 Izaiah Maurer MD Work Phone: [facility] 04-03-2024 12:04-0400 Body temperature 97.59 [degF] Izaiah Maurer MD Work Phone: [facility] 04-03-2024 12:04-0400 Body weight 107.41 kg Izaiah Maurer MD Work Phone: [facility] 04-03-2024 12:04-0400 Diastolic blood pressure 66 mm[Hg] Izaiah Maurer MD Work Phone: [facility] 04-03-2024 12:04-0400 Heart rate 91 /min Izaiah Maurer MD Work Phone: [facility] 04-03-2024 12:04-0400 Respiratory rate 18 /min Izaiah Maurer MD Work Phone: [facility] 04-03-2024 12:04-0400 SaO2% (BldA) [Mass fraction] 98 % Izaiah Maurer MD Work Phone: [facility] 04-03-2024 12:04-0400 Systolic blood pressure 114 mm[Hg] Izaiah Maurer MD Work Phone: [facility] 03-20-2024 15:15-0400 Diastolic blood pressure 77 mm[Hg] Izaiah Maurer MD Work Phone: [facility] 03-20-2024 15:15-0400 Heart rate 73 /min Izaiah Maurer MD Work Phone: [facility] 03-20-2024 15:15-0400 Respiratory rate 18 /min Izaiah Maurer MD Work Phone: [facility] 03-20-2024 15:15-0400 SaO2% (BldA) [Mass fraction] 95 % Izaiah Maurer MD Work Phone: [facility] 03-20-2024 15:15-0400 Systolic blood pressure 121 mm[Hg] Izaiah Maurer MD Work Phone: [facility] 03-20-2024 12:45-0400 Body temperature 97.7 [degF] Izaiah Maurer MD Work Phone: [facility] 03-20-2024 04:56-0400 Body mass index (BMI) [Ratio] 30 kg/m2 Izaiah Maurer MD Work Phone: [facility] 03-20-2024 04:56-0400 Body weight 114.76 kg Izaiah Maurer MD Work Phone: [facility] 03-17-2024 07:23-0400 Body height 195.6 cm Izaiah Maurer MD Work Phone: [facility] 03-16-2024 16:41-0400 Body temperature 97.39 [degF] Tereso Andrews MD Work Phone: [facility] 03-16-2024 16:41-0400 Diastolic blood pressure 67 mm[Hg] Tereso Andrews MD Work Phone: [facility] 03-16-2024 16:41-0400 Heart rate 77 /min Tereso Andrews MD Work Phone: [facility] 03-16-2024 16:41-0400 Respiratory rate 18 /min Tereso Andrews MD Work Phone: [facility] 03-16-2024 16:41-0400 SaO2% (BldA) [Mass fraction] 95 % Tereso Andrews MD Work Phone: [facility] 03-16-2024 16:41-0400 Systolic blood pressure 124 mm[Hg] Tereso Andrews MD Work Phone: [facility] 03-10-2024 20:11-0400 Body height 195.6 cm Yvonne Massey MD Work Phone: [facility] 03-10-2024 20:11-0400 Body temperature 97.81 [degF] Yvonne Massey MD Work Phone: [facility] 03-10-2024 20:11-0400 Diastolic blood pressure 72 mm[Hg] Yvonne Massey MD Work Phone: [facility] 03-10-2024 20:11-0400 Heart rate 78 /min Yvonne Massey MD Work Phone: [facility] 03-10-2024 20:11-0400 Respiratory rate 18 /min Yvonne Massey MD Work Phone: [facility] 03-10-2024 20:11-0400 SaO2% (BldA) [Mass fraction] 98 % Yvonne Massey MD Work Phone: [facility] 03-10-2024 20:11-0400 Systolic blood pressure 128 mm[Hg] Yvonne Massey MD Work Phone: [facility] 03-10-2024 12:07-0400 Blood Pressure Cuff Size NEFTALI MO MD [facility] 03-10-2024 12:07-0400 Blood Pressure Location NEFTALI MO MD [facility] 03-10-2024 12:07-0400 Blood Pressure Method NEFTALI MO MD [facility] 03-10-2024 12:07-0400 Body height 195.6 cm NEFTALI MO MD [facility] 03-10-2024 12:07-0400 Body temperature 97.7 [degF] NEFTALI MO MD [facility] 03-10-2024 12:07-0400 Body weight 106.8 kg NEFTALI MO MD [facility] 03-10-2024 12:07-0400 Diastolic Blood Pressure Non-Invasive 89 mm[Hg] NEFTALI MO MD [facility] 03-10-2024 12:07-0400 Heart rate 73 /min NEFTALI MO MD [facility] 03-10-2024 12:07-0400 Respiratory rate 18 /min NEFTALI MO MD [facility] 03-10-2024 12:07-0400 Systolic Blood Pressure Non-Invasive 134 mm[Hg] NEFTALI MO MD [facility] 03-06-2024 07:00-0400 Body temperature 97.7 [degF] Izaiah Maurer MD Work Phone: [facility] 03-06-2024 07:00-0400 Diastolic blood pressure 82 mm[Hg] Izaiah Maurer MD Work Phone: [facility] 03-06-2024 07:00-0400 Heart rate 59 /min Izaiah Maurer MD Work Phone: [facility] 03-06-2024 07:00-0400 Respiratory rate 20 /min Izaiah Maurer MD Work Phone: [facility] 03-06-2024 07:00-0400 SaO2% (BldA) [Mass fraction] 96 % Izaiah Maurer MD Work Phone: [facility] 03-06-2024 07:00-0400 Systolic blood pressure 146 mm[Hg] Izaiah Maurer MD Work Phone: [facility] 03-05-2024 10:33-0400 Body height 195.6 cm Izaiah Maurer MD Work Phone: [facility] 03-05-2024 10:33-0400 Body mass index (BMI) [Ratio] 28.25 kg/m2 Izaiah Maurer MD Work Phone: [facility] 03-05-2024 10:33-0400 Body weight 108.05 kg Izaiah Maurer MD Work Phone: [facility] 02-27-2024 08:06-0400 Blood Pressure Cuff Size NEFTALI MO MD [facility] 02-27-2024 08:06-0400 Blood Pressure Location NEFTALI MO MD [facility] 02-27-2024 08:06-0400 Blood Pressure Method NEFTALI MO MD [facility] 02-27-2024 08:06-0400 Body temperature 98.42 [degF] NEFTALI MO MD [facility] 02-27-2024 08:06-0400 Diastolic Blood Pressure Non-Invasive 85 mm[Hg] NEFTALI MO MD [facility] 02-27-2024 08:06-0400 Heart rate 69 /min NEFTALI MO MD [facility] 02-27-2024 08:06-0400 Respiratory rate 18 /min NEFTALI MO MD [facility] 02-27-2024 08:06-0400 Systolic Blood Pressure Non-Invasive 130 mm[Hg] NEFTALI MO MD [facility] 02-02-2024 00:29-0400 Body temperature 100.04 [degF] NEFTALI MO MD [facility] 02-02-2024 00:29-0400 Diastolic Blood Pressure Non-Invasive 89 mm[Hg] NEFTALI MO MD [facility] 02-02-2024 00:29-0400 Heart rate 71 /min NEFTALI MO MD [facility] 02-02-2024 00:29-0400 Respiratory rate 18 /min NEFTALI MO MD [facility] 02-02-2024 00:29-0400 Systolic Blood Pressure Non-Invasive 142 mm[Hg] NEFTALI MO MD [facility] 02-01-2024 23:34-0400 Body temperature 100.58 [degF] NEFTALI MO MD [facility] 02-01-2024 23:34-0400 Diastolic Blood Pressure Non-Invasive 92 mm[Hg] NEFTALI MO MD [facility] 02-01-2024 23:34-0400 Heart rate 80 /min NEFTALI MO MD [facility] 02-01-2024 23:34-0400 Respiratory rate 18 /min NEFTALI MO MD [facility] 02-01-2024 23:34-0400 Systolic Blood Pressure Non-Invasive 177 mm[Hg] NEFTALI MO MD [facility] 01-31-2024 11:00-0400 Body height 195.6 cm Izaiah Maurer MD Work Phone: [facility] 01-31-2024 11:00-0400 Body mass index (BMI) [Ratio] 28.22 kg/m2 Izaiah Maurer MD Work Phone: [facility] 01-31-2024 11:00-0400 Body temperature 97.39 [degF] Izaiah Maurer MD Work Phone: [facility] 01-31-2024 11:00-0400 Body weight 107.96 kg Izaiah Maurer MD Work Phone: [facility] 01-31-2024 11:00-0400 Diastolic blood pressure 94 mm[Hg] Izaiah Maurer MD Work Phone: [facility] 01-31-2024 11:00-0400 Heart rate 70 /min Izaiah Maurer MD Work Phone: [facility] 01-31-2024 11:00-0400 Respiratory rate 16 /min Izaiah Maurer MD Work Phone: [facility] 01-31-2024 11:00-0400 SaO2% (BldA) [Mass fraction] 98 % Izaiah Maurer MD Work Phone: [facility] 01-31-2024 11:00-0400 Systolic blood pressure 162 mm[Hg] Izaiah Maurer MD Work Phone: [facility] 01-31-2024 10:19-0400 Diastolic blood pressure 97 mm[Hg] Izaiah Maurer MD Work Phone: [facility] 01-31-2024 10:19-0400 Heart rate 67 /min Izaiah Maurer MD Work Phone: [facility] 01-31-2024 10:19-0400 Systolic blood pressure 165 mm[Hg] Izaiah Maurer MD Work Phone: [facility] 01-29-2024 11:06-0400 Body temperature 98.01 [degF] [facility] [address] 01-29-2024 11:06-0400 Diastolic blood pressure 79 mm[Hg] [facility] [address] 01-29-2024 11:06-0400 Heart rate 81 /min [facility] [address] 01-29-2024 11:06-0400 Respiratory rate 16 /min [facility] [address] 01-29-2024 11:06-0400 SaO2% (BldA) [Mass fraction] 96 % [facility] [address] 01-29-2024 11:06-0400 Systolic blood pressure 130 mm[Hg] [facility] [address] 01-22-2024 13:59-0400 Diastolic blood pressure 83 mm[Hg] Izaiah Maurer MD Work Phone: [facility] 01-22-2024 13:59-0400 Heart rate 66 /min Izaiah Maurer MD Work Phone: [facility] 01-22-2024 13:59-0400 Respiratory rate 16 /min Izaiah Maurer MD Work Phone: [facility] 01-22-2024 13:59-0400 SaO2% (BldA) [Mass fraction] 94 % Izaiah Maurer MD Work Phone: [facility] 01-22-2024 13:59-0400 Systolic blood pressure 149 mm[Hg] Izaiah Maurer MD Work Phone: [facility] 01-22-2024 13:24-0400 Body temperature 97.59 [degF] Izaiah Maurer MD Work Phone: [facility] 01-22-2024 08:31-0400 Body height 195.6 cm Izaiah Maurer MD Work Phone: [facility] 01-22-2024 08:31-0400 Body mass index (BMI) [Ratio] 28.51 kg/m2 Izaiah Maurer MD Work Phone: [facility] 01-22-2024 08:31-0400 Body weight 109.05 kg Izaiah Maurer MD Work Phone: [facility] 12-21-2023 05:10-0400 Body height 195.6 cm EMIGDIO CHASE MD [facility] 12-21-2023 05:10-0400 Body temperature 97.34 [degF] EMIGDIO CHASE MD [facility] 12-21-2023 05:10-0400 Body weight 106.8 kg EMIGDIO CHASE MD [facility] 12-21-2023 05:10-0400 Diastolic Blood Pressure Non-Invasive 98 mm[Hg] EMIGDIO CHASE MD [facility] 12-21-2023 05:10-0400 Heart rate 82 /min EMIGDIO CHASE MD [facility] 12-21-2023 05:10-0400 Respiratory rate 20 /min EMIGDIO CHASE MD [facility] 12-21-2023 05:10-0400 Systolic Blood Pressure Non-Invasive 169 mm[Hg] EMIGDIO CHASE MD [facility] 12-15-2023 17:34-0400 Blood Pressure Cuff Size NIDAL CHOUJAA DO [facility] 12-15-2023 17:34-0400 Blood Pressure Location NIDAL CHOUJAA DO [facility] 12-15-2023 17:34-0400 Blood Pressure Method NIDAL CHOUJAA DO [facility] 12-15-2023 17:34-0400 Body temperature 98.42 [degF] NIDAL CHOUJAA DO [facility] 12-15-2023 17:34-0400 Diastolic Blood Pressure Non-Invasive 96 mm[Hg] NIDAL CHOUJAA DO [facility] 12-15-2023 17:34-0400 Heart rate 79 /min NIDAL CHOUJAA DO [facility] 12-15-2023 17:34-0400 Respiratory rate 18 /min NIDAL CHOUJAA DO [facility] 12-15-2023 17:34-0400 Systolic Blood Pressure Non-Invasive 171 mm[Hg] NIDAL CHOUJAA DO [facility] 11-29-2023 08:39-0400 Body height 195.6 cm Izaiah Maurer MD Work Phone: [facility] 11-29-2023 08:39-0400 Body mass index (BMI) [Ratio] 28.36 kg/m2 Izaiah Maurer MD Work Phone: [facility] 11-29-2023 08:39-0400 Body temperature 97.7 [degF] Izaiah Maurer MD Work Phone: [facility] 11-29-2023 08:39-0400 Body weight 108.5 kg Izaiah Maurer MD Work Phone: [facility] 11-29-2023 08:39-0400 Diastolic blood pressure 97 mm[Hg] Izaiah Maurer MD Work Phone: [facility] Comment on above: RN notified 11-29-2023 08:39-0400 Heart rate 60 /min Izaiah Maurer MD Work Phone: [facility] 11-29-2023 08:39-0400 Respiratory rate 16 /min Izaiah Maurer MD Work Phone: [facility] 11-29-2023 08:39-0400 SaO2% (BldA) [Mass fraction] 98 % Izaiah Maurer MD Work Phone: [facility] 11-29-2023 08:39-0400 Systolic blood pressure 169 mm[Hg] Izaiah Maurer MD Work Phone: [facility] Comment on above: RN notified 11-29-2023 07:24-0400 Diastolic blood pressure 99 mm[Hg] Izaiah Maurer MD Work Phone: [facility] 11-29-2023 07:24-0400 Heart rate 65 /min Izaiah Maurer MD Work Phone: [facility] 11-29-2023 07:24-0400 Systolic blood pressure 150 mm[Hg] Izaiah Maurer MD Work Phone: [facility] 11-04-2023 08:18-0400 Body mass index (BMI) [Ratio] 28.8 kg/m2 Izaiah Maurer MD Work Phone: [facility] 11-04-2023 08:18-0400 Body temperature 97.9 [degF] Izaiah Maurer MD Work Phone: [facility] 11-04-2023 08:18-0400 Body weight 110.18 kg Izaiah Maurer MD Work Phone: [facility] 11-04-2023 08:18-0400 Diastolic blood pressure 100 mm[Hg] Izaaih Maurer MD Work Phone: [facility] 11-04-2023 08:18-0400 Heart rate 63 /min Izaiah Maurer MD Work Phone: [facility] 11-04-2023 08:18-0400 Respiratory rate 18 /min Izaiah Maurer MD Work Phone: [facility] 11-04-2023 08:18-0400 SaO2% (BldA) [Mass fraction] 96 % Izaiah Maurer MD Work Phone: [facility] 11-04-2023 08:18-0400 Systolic blood pressure 195 mm[Hg] Izaiah Maurer MD Work Phone: [facility] 08-16-2023 08:40-0500 Body height 195.6 cm Izaiah Maurer MD Work Phone: [facility] 08-16-2023 08:40-0500 Body mass index (BMI) [Ratio] 29.14 kg/m2 Izaiah Maurer MD Work Phone: [facility] 08-16-2023 08:40-0500 Body temperature 98.71 [degF] Izaiah Maurer MD Work Phone: [facility] 08-16-2023 08:40-0500 Body weight 111.45 kg Izaiah Maurer MD Work Phone: [facility] 08-16-2023 08:40-0500 Diastolic blood pressure 86 mm[Hg] Izaiah Maurer MD Work Phone: [facility] 08-16-2023 08:40-0500 Heart rate 64 /min Izaiah Maurer MD Work Phone: [facility] 08-16-2023 08:40-0500 Respiratory rate 16 /min Izaiah Maurer MD Work Phone: [facility] 08-16-2023 08:40-0500 SaO2% (BldA) [Mass fraction] 97 % Izaiah Maurer MD Work Phone: [facility] 08-16-2023 08:40-0500 Systolic blood pressure 157 mm[Hg] Izaiah Maurer MD Work Phone: [facility] 08-02-2023 09:43-0500 Body temperature 97.39 [degF] Izaiah Maurer MD Work Phone: [facility] 08-02-2023 09:43-0500 Body weight 111.58 kg Izaiah Maurer MD Work Phone: [facility] 08-02-2023 09:43-0500 Diastolic blood pressure 98 mm[Hg] Izaiah Maurer MD Work Phone: [facility] 08-02-2023 09:43-0500 Heart rate 71 /min Izaiah Maurer MD Work Phone: [facility] 08-02-2023 09:43-0500 Respiratory rate 14 /min Izaiah Maurer MD Work Phone: [facility] 08-02-2023 09:43-0500 SaO2% (BldA) [Mass fraction] 97 % Izaiah Maurer MD Work Phone: [facility] Comment on above: RA 08-02-2023 09:43-0500 Systolic blood pressure 165 mm[Hg] Izaiah Maurer MD Work Phone: [facility] Encounters Encounter Date Encounter Type Care Provider Facility Start: 03-08-2025 End: 03-09-2025 ambulatory Ruben Wilson PT, DPT [facility] Comment on above: Weakness of both low er extremities (Primary Dx); Tightness of fascia of lower extremity Start: 02-15-2025 End: 02-19-2025 ambulatory VIADL JUAREZ DO Facility:[facility] Start: 02-15-2025 End: 02-19-2025 Outreach Lab VIDAL JUAREZ DO [facility] Start: 01-04-2025 End: 01-04-2025 Patient encounter procedure Trent Ingram [place] -[facility] Work Phone: Start: 01-04-2025 End: 01-04-[address] Vidal Juarez DO Work Phone: [facility] Work Phone: Start: 11-17-2024 End: 11-17-2024 Office outpatient visit 25 minutes Mark Ly MD Work Phone: [facility] Comment on above: Other hypospadias (P rimary Dx) Start: 11-17-2024 ambulatory MARK LY Facility: [facility] Start: 09-25-2024 End: 09-25-2024 Office outpatient visit 25 minutes Izaiah Maurer MD Work Phone: Division of Urological Surgery at [facility] Comment on above: Penile cancer (Prima ry Dx); Lymphedema Start: 09-25-2024 ambulatory IZAIAH MAURER Facility:[facility] Start: 09-25-2024 End: 09-25-2024 Subsequent hospital visit by physician Izaiah Maurer MD Work Phone: Imaging at [facility] Start: 08-28-2024 End: 08-28-2024 ambulatory VIDAL JUAREZ DO [facility] Start: 08-28-2024 End: 08-28-2024 Patient encounter procedure VIDAL JUAREZ DO [facility] Start: 06-19-2024 ambulatory IZAIAH MAURER Facility:[facility] Start: 05-19-2024 End: 05-19-2024 Office outpatient visit 40 minutes Clement Dickens DO Work Phone: [facility] Comment on above: Groin pain, right (P rimary Dx); 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 Start: 05-11-2024 End: 05-11-2024 Subsequent hospital visit by physician Joann Pereira CODING EDUCATOR-MIXER ATTENDANT Work Phone: [facility] [place] Comment on above: Arrived Start: 05-08-2024 End: 05-08-2024 Postop follow up visit related to original px Izaiah Maurer MD Work Phone: Division of Urological Surgery at [facility] Comment on above: Penile cancer (Prima ry Dx) Start: 05-08-2024 ambulatory IZAIAH MAURER Facility:[facility] Start: 04-27-2024 End: 04-27-2024 Patient encounter procedure SUZIEANGIE MARTIN [facility] Start: 04-27-2024 End: 04-27-2024 ambulatory VIDAL JUAREZ DO [facility] [place] Start: 04-27-2024 ambulatory VIDAL JUAREZ Facilit y:[facility] Start: 04-20-2024 End: 04-22-2024 ambulatory NEPHROLOGY CONSULT Facility:[facility] Start: 04-20-2024 End: 04-22-2024 Evaluation and management of inpatient Karla Arce MD Work Phone: [id number] Comment on above: Acute kidney injury Start: 04-17-2024 ambulatory SULLY HENLEY Facili ty:[facility] Start: 04-16-2024 End: 04-16-2024 ambulatory JOANN PEREIRA APRN Facility:[facility] Start: 04-16-2024 End: 04-16-2024 Patient encounter procedure JOANN PEREIRA CODING EDUCATOR [facility] Start: 04-12-2024 End: 04-14-2024 ambulatory IZAIAH MAURER Facility:[facility] Start: 04-12-2024 End: 04-14-2024 Evaluation and management of inpatient Cyndy Panchal MD Work Phone: [id number] Comment on above: Penile cancer Start: 04-09-2024 End: 04-11-2024 Evaluation and management of inpatient Izaiah Maurer MD Work Phone: [id number] Comment on above: Inguinal abscess Start: 04-09-2024 ambulatory IZAIAH MAURER Facility:[facility] Start: 04-09-2024 End: 04-09-2024 Emergency department patient visit IZAIAH MAURER Facility:[facility] Start: 04-09-2024 End: 04-09-2024 Evaluation and management of inpatient Sumit Kong MD Work Phone: [facility] Comment on above: Penile cancer Start: 04-09-2024 Emergency department patient visit VIDAL JUAREZ Facility:[facility] Start: 04-03-2024 End: 04-03-2024 Postop follow up visit related to original px Izaiah Maurer MD Work Phone: Division of Urological Surgery at [facility] Comment on above: Penile cancer (Prima ry Dx) Start: 04-03-2024 ambulatory VIDAL JUAREZ Facilit y:[facility] Start: 03-25-2024 ambulatory SULLY HENLEY Facili ty:[facility] Start: 03-16-2024 End: 03-20-2024 Evaluation and management of inpatient Izaiah Maurer MD Work Phone: [id number] Comment on above: Skin wound from surg ical incision Start: 03-16-2024 End: 03-16-2024 Emergency department patient visit Tereso Andrews MD Work Phone: [facility] Start: 03-10-2024 End: 03-10-2024 Emergency department patient visit Yvonne Massey MD Work Phone: [facility] Start: 03-10-2024 End: 03-10-2024 Emergency department patient visit NEFTALI MO MD [facility] Start: 03-09-2024 End: 03-09-2024 ambulatory PETRA VIRK Facility:[facility] Start: 03-05-2024 End: 03-06-2024 ambulatory IZAIAH MAURER Facility:[facility] Start: 03-05-2024 End: 03-06-2024 Evaluation and management of inpatient Izaiah Maurer MD Work Phone: [id number] Comment on above: Penile cancer Start: 02-27-2024 End: 02-27-2024 Emergency department patient visit NEFTALI MO MD [facility] Start: 02-27-2024 ambulatory IZAIAH MAURER Facility:[facility] Start: 02-25-2024 End: 02-29-2024 ambulatory VIDAL JUAREZ Facility:[facility] Start: 02-25-2024 End: 02-29-2024 Outreach Lab VIDAL JUAREZ DO [facility] Start: 02-25-2024 End: 02-25-2024 ambulatory VIDAL JUAREZ Facility:[facility] Start: 02-07-2024 ambulatory IZAIAH MAURER Facility:[facility] Start: 02-07-2024 ambulatory VIDAL JUAREZ Facilit y:[facility] Start: 02-01-2024 End: 02-02-2024 Emergency department patient visit NEFTALI MO MD [facility] Start: 01-31-2024 End: 01-31-2024 Postop follow up visit related to original px Izaiah Maurer MD Work Phone: Division of Urological Surgery at [facility] Comment on above: Penile cancer (Prima ry Dx) Start: 01-31-2024 ambulatory VIDAL JUAREZ Facilit y:[facility] Start: 01-31-2024 End: 01-31-2024 Subsequent hospital visit by physician Izaiah Maurer MD Work Phone: Imaging at [facility] Start: 01-29-2024 End: 01-29-2024 Patient encounter procedure [facility] Division of Nursing at [facility] Comment on above: Abnormal urine (Prim jenn Dx) Start: 01-29-2024 ambulatory IZAIAH MAURER Facility:[facility] Start: 01-24-2024 ambulatory Vidal Juarez Facility: [facility] Start: 01-22-2024 End: 01-22-2024 [facility] IZAIAH MAURER Facility:[facility] Start: 01-22-2024 End: 01-22-2024 Subsequent hospital visit by physician Izaiah Maurer MD Work Phone: Perioperative Services at [facility] Comment on above: Penile mass Start: 01-21-2024 ambulatory IZAIAH MAURER Facility:[facility] Start: 01-17-2024 ambulatory IZAIAH MAURER Facility:[facility] Start: 01-10-2024 End: 01-12-2024 ambulatory Vidal Juarez Facility:[facility] Start: 01-07-2024 End: 01-07-2024 Patient encounter procedure Christiano Waller MD Work Phone: [facility] Comment on above: Neoplasm of uncertai n behavior of skin (Primary Dx) Start: 01-07-2024 ambulatory CHRISTIANO Rowley acility:[facility] Start: 12-21-2023 End: 12-21-2023 Emergency department patient visit EMIGDIO CHASE MD [facility] Start: 12-19-2023 End: 12-19-2023 Office consultation new/estab patient 60 min Sagrario Barnard MD, MPH Work Phone: [facility] [place] Comment on above: Penile ulcer (Primar y Dx) Start: 12-19-2023 ambulatory REBECA Dyalin KIM Facility:[facility] Start: 12-15-2023 End: 12-15-2023 Emergency department patient visit TAVO MCCANN DO [facility] Start: 11-29-2023 ambulatory IZAIAH MAURER Facility:[facility] Start: 11-29-2023 End: 11-29-2023 Office outpatient visit 15 minutes Izaiah Maurer MD Work Phone: Division of Urological Surgery at [facility] Comment on above: Malignant neoplasm o f penis (Primary Dx) Start: 11-29-2023 ambulatory IZAIAH MAURER Facility:[facility] Start: 11-29-2023 End: 11-29-2023 Subsequent hospital visit by physician Izaiah Maurer MD Work Phone: Imaging at [facility] Start: 11-04-2023 End: 11-04-2023 Office outpatient visit 25 minutes Izaiah Maurer MD Work Phone: Division of Urological Surgery at [facility] Comment on above: Malignant neoplasm o f penis (Primary Dx) Start: 10-28-2023 End: 10-28-[address] ASMITA GARZA MD Facility:[facility] Start: 10-28-2023 End: 10-28-2023 Patient encounter procedure WANDA FELIPE MD [facility] Start: 08-16-2023 End: 08-16-2023 Office outpatient visit 15 minutes Izaaih Maurer MD Work Phone: Division of Urological Surgery at [facility] Comment on above: Malignant neoplasm o f penis (Primary Dx) Start: 08-02-2023 End: 08-02-2023 Office outpatient new 45 minutes Izaiah Maurer MD Work Phone: Division of Urological Surgery at [facility] Comment on above: Malignant neoplasm o f penis (Primary Dx) Start: 07-01-2023 End: 07-01-2023 ambulatory [facility] Work Phone: Start: 07-01-2023 End: 07-01-2023 Patient encounter procedure [facility]-Laboratory, Specimen Work Phone: Start: 06-14-2023 End: 06-14-[address] ASMITA GARZA MD Facility:[facility] Start: 06-14-2023 End: 06-14-[address] ASMITA GARZA MD [facility] Start: 06-13-2023 End: 06-13-2023 ambulatory VIDAL JUAREZ Facility:[facility] Start: 11-01-2022 End: 11-01-2022 Patient encounter procedure WANDA FELIPE MD [facility] Start: 04-20-2022 End: 04-20-2022 Patient encounter procedure WANDA FELIPE MD [facility] Start: 01-09-2022 End: 01-09-2022 Patient encounter procedure WANDA FELIPE MD [facility] Start: 08-10-2021 End: 08-10-2021 Patient encounter procedure WANDA FELIPE MD [facility] Start: 09-08-2020 End: 09-08-2020 Discharged Recurring [facility]-Immunizations Procedures Date Procedure Procedure Detail Performing Clinician Start: 09-25-2024 Creatinine blood Izaiah Maurer MD Work Phone: Start: 05-08-2024 Follow-up visit Follow-up IZAIAH RODRIGUEZ Start: 04-22-2024 Glucose measurement, blood Melodie Chapman MD Work Phone: Start: 04-22-2024 Glucose measurement, blood Melodie Chapman MD Work Phone: Start: 04-22-2024 Prothrombin time Suzie Martin PA-C Work Phone: Start: 04-22-2024 Bilirubin direct Megan Grace CODING EDUCATOR-MIXER ATTENDANT Work Phone: Start: 04-21-2024 Thromboplastin time partial plasma/whole blood Megan Grace CODING EDUCATOR-MIXER ATTENDANT Work Phone: Start: 04-21-2024 Glucose measurement, blood Neo Finnegan MD Work Phone: Start: 04-21-2024 Glucose measurement, blood Neo Finnegan MD Work Phone: Start: 04-21-2024 Thromboplastin time partial plasma/whole blood Megan L Lesly CODING EDUCATOR-MIXER ATTENDANT Work Phone: Start: 04-21-2024 Glucose measurement, blood Neo Finnegan MD Work Phone: Start: 04-21-2024 Glucose measurement, blood Neo Finnegan MD Work Phone: Start: 04-21-2024 Assay of magnesium Sand ra L Kerdennis CODING EDUCATOR-MIXER ATTENDANT Work Phone: Start: 04-21-2024 Glucose measurement, blood Neo Finnegan MD Work Phone: Start: 04-20-2024 End: 04-20-2024 Thromboplastin time partial plasma/whole blood Megan L Lesly CODING EDUCATOR-MIXER ATTENDANT Work Phone: Start: 04-20-2024 Us retroperitoneal r eal time w/image complete Dahiana Arizmendi CODING EDUCATOR-[facility] Work Phone: Start: 04-20-2024 Ct pelvis w/o contra st material Marissa Thomson CODING EDUCATOR-[facility] Work Phone: Start: 04-20-2024 Bilirubin direct Marissa Thomson CODING EDUCATOR-[facility] Work Phone: Start: 04-20-2024 CBC AND ELECTRONIC DIFF Marissa Thomson CODING EDUCATOR-[facility] Work Phone: Start: 04-20-2024 Complete blood count with white cell differential, automated Marissa Thomson CODING EDUCATOR-[facility] Work Phone: Start: 04-14-2024 Glucose measurement, blood Izaiah Maurer MD Work Phone: Start: 04-14-2024 Glucose measurement, blood Izaiah Maurer MD Work Phone: Start: 04-14-2024 Assay of magnesium Richar Oneal MD Work Phone: Start: 04-13-2024 Glucose measurement, blood Izaiah Maurer MD Work Phone: Start: 04-13-2024 Glucose measurement, blood Izaiah Maurer MD Work Phone: Start: 04-13-2024 Glucose measurement, blood Izaiah Maurer MD Work Phone: Start: 04-13-2024 Glucose measurement, blood Izaiah Maurer MD Work Phone: Start: 04-13-2024 Glucose measurement, blood Izaiah Maurer MD Work Phone: Start: 04-13-2024 Bilirubin direct Blessing Shah [facility] Work Phone: Start: 04-12-2024 Glucose measurement, blood Cyndy Panchal MD Work Phone: Start: 04-12-2024 Culture fngi mold/ye ast prsmptv oth xcpt blood Richar Oneal MD Work Phone: Start: 04-12-2024 Hemoglobin glycosylated a1c Richar Oneal MD Work Phone: Start: 04-11-2024 Drug screen quantita tive vancom[facility] Start: 04-11-2024 Assay of magnesium Ted Lockhart MD Work Phone: Start: 04-10-2024 Culture bct isol&prs mptv id isolate ea urine Minda Guevara MD Work Phone: Start: 04-10-2024 Concentration infect ious agents Minda Guevara MD Work Phone: Start: 04-10-2024 Thromboplastin time partial plasma/whole blood Surendra Lockhart MD Work Phone: Start: 04-10-2024 Assay of magnesium Ted Lockhart MD Work Phone: Start: 04-09-2024 Thromboplastin time partial plasma/whole blood Surendra Lockhart MD Work Phone: Start: 04-09-2024 Ct abdomen & pelvis w/contrast material Jc Yanes PA-C Work Phone: Start: 04-09-2024 CBC AND ELECTRONIC DIFF Chela Cho MD Work Phone: Start: 04-09-2024 Complete blood count with white cell differential, automated Chela Cho MD Work Phone: Start: 04-09-2024 GOLD TOP TUBE Chela hu MD Work Phone: Start: 04-09-2024 LAVENDER TOP TUBE Chela Cho MD Work Phone: Start: 04-09-2024 LT BLUE TOP TUBE Chela Cho MD Work Phone: Start: 04-09-2024 MINT GREEN TOP TUBE Alina Cho MD Work Phone: Start: 04-09-2024 Prothrombin time Jc R [place] PA-C Work Phone: Start: 04-09-2024 RAINBOW DRAW Chela agee MD Work Phone: Start: 03-20-2024 Image-guided cathete r fluid collection drainage Kisha Quarles DO Work Phone: Start: 03-20-2024 SEDATION/PROCEDURES MONITORING FLOWSHEET Other Other Start: 03-20-2024 Glucose measurement, blood Izaiah Maurer MD Work Phone: Start: 03-20-2024 Glucose measurement, blood Izaiah Maurer MD Work Phone: Start: 03-20-2024 Assay of magnesium Bassem Ramos MD Work Phone: Start: 03-19-2024 Thromboplastin time partial plasma/whole blood Trent Linda MD Work Phone: Start: 03-19-2024 Glucose measurement, blood Izaiah Maurer MD Work Phone: Start: 03-19-2024 Glucose measurement, blood Izaiah Maurer MD Work Phone: Start: 03-19-2024 Glucose measurement, blood Izaiah Maurer MD Work Phone: Start: 03-19-2024 Assay of magnesium Bassem Ramos MD Work Phone: Start: 03-18-2024 Ct pelvis w/contrast material Joann Pereira CODING EDUCATOR-MIXER ATTENDANT Work Phone: Start: 03-18-2024 Glucose measurement, blood Izaiah Maurer MD Work Phone: Start: 03-18-2024 Glucose measurement, blood Izaiah Maurer MD Work Phone: Start: 03-18-2024 Glucose measurement, blood Izaiah Maurer MD Work Phone: Start: 03-18-2024 Us lmtd joint/oth no nvasc xtr strux r-t w/img Henrry Calero MD Work Phone: Start: 03-18-2024 Assay of lactate Joann Pereira CODING EDUCATOR-MIXER ATTENDANT Work Phone: Start: 03-18-2024 Assay of magnesium Bassem Ramos MD Work Phone: Start: 03-18-2024 Drug screen quantita tive vancomycin Izaiah Maurer MD Work Phone: Start: 03-17-2024 Glucose measurement, blood Izaiah Maurer MD Work Phone: Start: 03-17-2024 Assay of lactate Joann N Gregory CODING EDUCATOR-MIXER ATTENDANT Work Phone: Start: 03-17-2024 Glucose measurement, blood Izaiah Maurer MD Work Phone: Start: 03-17-2024 Assay of lactate Joann Pereira CODING EDUCATOR-MIXER ATTENDANT Work Phone: Start: 03-17-2024 Glucose measurement, blood Izaiah Maurer MD Work Phone: Start: 03-17-2024 Glucose measurement, blood Izaiah Maurer MD Work Phone: Start: 03-17-2024 Smr prim src gram/gi emsa stain bct fungi/cell Joann Mcleod Gregory CODING EDUCATOR-MIXER ATTENDANT Work Phone: Start: 03-17-2024 Assay of magnesium Bassem Ramos MD Work Phone: Start: 03-16-2024 Glucose measurement, blood Izaiah Maurer MD Work Phone: Start: 03-16-2024 Creatinine other source Beau Ramos MD Work Phone: Start: 03-16-2024 Assay of lactate Minda Palmer PA-C Work Phone: Start: 03-16-2024 Assay of lactate Minda Palmer PA-C Work Phone: Start: 03-16-2024 Urnls dip stick/tabl et reagent auto microscopy Minda Palmer PA-C Work Phone: Start: 03-16-2024 Ct abdomen & pelvis w/contrast material Minda Palmer PA-C Work Phone: Start: 03-16-2024 End: 03-16-2024 Assay of magnesium Minda Palmer PA-C Work Phone: Start: 03-16-2024 CBC AND ELECTRONIC DIFF Minda Plamer PA-C Work Phone: Start: 03-16-2024 Complete blood count with white cell differential, automated Minda Palmer PA-C Work Phone: Start: 03-06-2024 Glucose measurement, blood Izaiah Maurer MD Work Phone: Start: 03-06-2024 Glucose measurement, blood Izaiah Maurer MD Work Phone: Start: 03-06-2024 Assay of magnesium Glen Linda MD Work Phone: Start: 03-05-2024 Glucose measurement, blood Izaiah Maurer MD Work Phone: Start: 03-05-2024 Glucose measurement, blood Izaiah Maurer MD Work Phone: Start: 03-05-2024 Assay of magnesium Glen Linda MD Work Phone: Start: 03-05-2024 CBC AND ELECTRONIC DIFF Trent Linda MD Work Phone: Start: 03-05-2024 Complete blood count with white cell differential, automated Trent Linda MD Work Phone: Start: 03-05-2024 CONTINUOUS CARDIAC MONITORING STRIP Other Other Start: 03-05-2024 Glucose measurement, blood Izaiah Maurer MD Work Phone: Start: 03-05-2024 Glucose measurement, blood Izaiah Maurer MD Work Phone: Start: 03-05-2024 Glucose measurement, blood Izaiah Maurer MD Work Phone: Start: 03-05-2024 Antibody screen Izaiah rodriguez MD Work Phone: Start: 03-05-2024 Glucose measurement, blood Izaiah Maurer MD Work Phone: Start: 03-05-2024 End: 03-05-2024 Inguinofem lmphadec supfc w/cloquets node spx Izaiah Maurer MD Work Phone: Start: 03-05-2024 ABORH TYPE RECONFIRMATION Beau Khalil MD Work Phone: Start: 03-05-2024 CONTINUOUS CARDIAC MONITORING STRIP Other Other Start: 03-05-2024 Antibody screen IZAIAH RODRIGUEZ Comment on above: Performed By: #### X M ####[facility] (DEFAULT)[address] [place] [address] Start: 03-05-2024 Basic metabolic pane l calcium total Trent Linda MD Work Phone: Start: 03-05-2024 Blood typing serologic abo Trent Linda MD Work Phone: Start: 01-31-2024 Ct abdomen & pelvis w/contrast material Rebeca Kim CODING EDUCATOR-MIXER ATTENDANT Work Phone: Start: 01-31-2024 Creatinine blood Izaiah Maurer MD Work Phone: Start: 01-29-2024 Urnls dip stick/tabl et rgnt auto w/o microscopy Other Other OT Start: 01-22-2024 CONTINUOUS CARDIAC MONITORING STRIP Other Other Start: 01-22-2024 Glucose measurement, blood Izaiah Maurer MD Work Phone: Start: 08-16-2023 Biopsy penis separat e procedure Izaiah Maurer MD Work Phone: Start: 08-16-2023 Creatinine blood Izaiah Maurer MD Work Phone: Start: 06-25-2008 Entire heel (body structure) WANDA FELIPE MD Comment on above: osteotomy with fixat ion Start: 11-27-2005 History of operative procedure on lumbar spinal structure WANDA FELIPE MD Start: 07-15-1991 Primary repair of tendon WANDA FELIPE MD Arthroscopy of knee WANDA FELIPE MD Comment on above: right knee, ACL repa ir Surgery (qualifier value) KE FELIPE MD Comment on above: left ankle/foot x3 to back Plan of Treatment Date Care Activity Detail Author Start: 12-14-2033 Tetanus vaccination TETANUS [facility] Start: 12-14-2033 Urine microalbumin profile DTaP,Tdap,Td Vaccine (2 - Td or Tdap) [facility] Start: 04-22-2027 Diabetes Screening Diabetes Screenin g [facility] Start: 02-19-2026 Screening for malign ant neoplasm of colon [facility] Start: 03-26-2025 End: 03-26-2025 Patient encounter procedure Imaging at [facility] Start: 03-15-2025 Influenza vaccination [facility] Start: 10-10-2024 Hemoglobin A1c measurement HBA1C TEST [facility] Start: 09-25-2024 End: 09-25-2025 CT Pelvis W contrast IV [facility] Comment on above: 1 Occurrences starti ng 09/25/2024 until 09/25/2024 Expected: 09/25/2024 , Expires: 09/25/2025 Start: 06-19-2024 End: 06-19-2024 Telemedicine consultation with patient 06/19/2024 1:15 PM EST Telemedicine Division of Urological Surgery at [facility] [place] [address] [place] [phone] Izaiah Maurer MD [address] [place] [id number] Division of Urological Surgery at [facility] Start: 05-19-2024 End: 05-19-2025 POSACONAZOLE, TROUGH (PRE DRUG LEVEL) [facility] Comment on above: Expected: 05/19/2024 , Expires: 05/19/2025 Start: 05-19-2024 End: 05-19-2024 Patient encounter procedure 05/19/2024 9:00 AM EST Office Visit Infectious Diseases Care [facility] [address] [place] [phone] Infectious Diseases [facility] Start: 05-11-2024 End: 05-11-2024 Patient encounter procedure 05/11/2024 3:30 PM EDT Appointment Imaging and Mammography Out[facility] [place] [address] [place] [address], [place] [phone] Joann Pereira, CODING EDUCATOR-MIXER ATTENDANT [address] [place] [phone] Imaging and Mammography Outpatient [facility] Start: 05-11-2024 End: 04-14-2025 CT Abdomen and Pelvis W contrast IV [facility] Comment on above: Expected: 05/11/2024 , Expires: 04/14/2025 1 Occurrences starti ng 05/11/2024 until 05/11/2024 Start: 05-08-2024 End: 05-08-2024 Patient encounter procedure 05/08/2024 1:15 PM EDT Office Visit Division of Urological Surgery at [facility] [address] [place] [phone] Izaiah Maurer MD [address] [place] [id number] Division of Urological Surgery at [facility] Start: 04-16-2024 End: 04-14-2025 Basic metabolic 2000 panel - Serum or Plasma BASIC METABOLIC PANEL Lab Routine Infection of organ or organ space after surgery, subsequent encounter Expected: 04/16/2024, Expires: 04/14/2025 [facility] Comment on above: Expected: 04/16/2024 , Expires: 04/14/2025 Start: 04-13-2024 End: 04-13-2024 Patient encounter procedure 04/13/2024 8:30 AM EDT Office Visit Division of Urological Surgery at [place] [address] [phone] Izaiah Maurer MD [address] [place] [address] Division of Urological Surgery at [facility] Start: 04-03-2024 End: 04-03-2024 Patient encounter procedure 04/03/2024 12:30 PM EDT Office Visit Division of Urological Surgery at [place] [address] [phone] Izaiah Maurer MD [address] [place] [address] Division of Urological Surgery at [facility] Start: 03-20-2024 End: 03-20-2024 Patient encounter procedure 03/20/2024 2:15 PM EDT Office Visit Division of Urological Surgery at [place] [address] [phone] Izaiah Maurer MD [address] [place] [address] Division of Urological Surgery at [facility] Start: 03-15-2024 COVID-19 VACCINE () COVID-19 VACCINE () [facility] Start: 03-15-2024 COVID-19 VACCINE ( season) COVID-19 VACCINE ( season) [facility] Start: 03-15-2024 Influenza vaccination INFLUENZA VACC INE (#1) [facility] Start: 03-09-2024 End: 03-06-2025 CBC,PLATELETS CBC,PLATELETS Lab Routine Malignant neoplasm of penis Expected: 03/09/2024 (Approximate), Expires: 03/06/2025 [facility] Comment on above: Expected: 03/09/2024 (Approximate), Expires: 03/06/2025 Start: 02-20-2024 Screening for malign ant neoplasm of colon COLORECTAL CANCER SCREENING DISCUSSION [facility] Start: 02-07-2024 End: 02-07-2024 Patient encounter procedure 02/07/2024 11:15 AM EDT Office Visit Division of Urological Surgery at [facility] [place] [address] [phone] Izaiah Maurer MD [address] [place] [phone] Division of Urological Surgery at [facility] Start: 02-07-2024 End: 02-07-2024 Telemedicine consultation with patient 02/07/2024 11:15 AM EDT Telemedicine Division of Urological Surgery at [facility] [place] [address] [phone] Izaiah Maurer MD [address] [place] [address] Division of Urological Surgery at [facility] Start: 01-31-2024 End: 01-31-2024 Patient encounter procedure Imaging at [facility] Start: 01-31-2024 End: 01-31-2024 Telemedicine consultation with patient 01/31/2024 8:30 AM EDT Telemedicine Division of Urological Surgery at [facility] [place] [address] [phone] Izaiah Maurer MD 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 01/22/2024 10:09 AM EDT [facility] Start: 01-07-2024 End: 01-06-2025 HSV BY PCR, FLUID/LESION HSV BY PCR, FLUID/LESION Fluids Routine Neoplasm of uncertain behavior of skin Expected: 01/07/2024, Expires: 01/06/2025 [facility] Comment on above: Expected: 01/07/2024 , Expires: 01/06/2025 Start: 12-19-2023 End: 12-19-2023 Patient encounter procedure 12/19/2023 9:30 AM EDT Office Visit [facility] [address] [place] [phone] Sagrario Barnard MD, MPH [address] [place] [phone] [facility] Start: 11-29-2023 End: 11-29-2023 Patient encounter procedure 11/29/2023 8:15 AM EDT Office Visit Division of Urological Surgery at [facility] [address] [facility] [address] [place] [address] Izaiah Maurer MD [address] [place] [address] Division of Urological Surgery at [facility] Start: 09-04-2023 End: 09-04-2023 Telemedicine consultation with patient 09/04/2023 3:15 PM EST Telemedicine Division of Urological Surgery at [facility] [address] [place] [address] Izaiah Maurer MD [address] [place] [address] Division of Urological Surgery at [facility] Start: 08-02-2023 End: 08-02-2024 CT Abdomen and Pelvis W contrast IV CT ABDOMEN/PELVIS WITH CONTRAST Imaging Routine Malignant neoplasm of penis Expected: 08/02/2023 (Approximate), Expires: 08/02/2024 [facility] Comment on above: Expected: 08/02/2023 (Approximate), Expires: 08/02/2024 Start: 03-15-2023 COVID-19 VACCINE ( season) COVID-19 VACCINE ( season) [facility] Start: 03-15-2023 Influenza vaccination INFLUENZA VACC INE (#1) [facility] Start: 2020 Prostate specific antigen measurement PROSTATE CANCER SCREENING DISCUSSION [facility] Start: 2015 Pneumococcal vaccination PNEUMOCOCCAL VACCINE SERIES (1 of 1 - PCV) [facility] Start: 2015 Pneumococcal Vaccine : 50+ (1 of 1 - PCV) Pneumococcal Vaccine: 50+ (1 of 1 - PCV) [facility] Start: 2015 Prostate specific antigen measurement PROSTATE CANCER SCREENING DISCUSSION [facility] Start: 2010 Prostate specific antigen measurement Prostate Cancer Screening Discussion [facility] Start: 2010 Screening for malign ant neoplasm of colon [facility] Start: 2005 Lipid panel LIPID SCREENING [facility] Start: 2000 Lipid panel Lipid Screening [facility] Start: 1984 Hepatitis B vaccination HEP B VACCINE (1 of + 3-dose series) [facility] Start: 1984 Third diphtheria, tetanus and acellular pertussis (DTaP) vaccination TDAP (ADULT) [facility] Start: 1983 Anxiety Screening Anxiety Screening [facility] Start: 1983 Depression Screening Depression Scre linda [facility] Start: 1983 Hepatitis C screening Hepatitis C Sc haritha [facility] Start: 1983 HIV screening HIV Screening [facility] Start: 1980 HIV screening HIV SCREENING DISCUSSION [facility] Start: 1965 Diabetic foot examination DIABETIC FOOT EXAM [facility] Start: 1965 Glaucoma screening EYE EXAM [facility] Start: 1965 Hepatitis B vaccination HEP B VACCINE (1 of 3 - 3-dose series) [facility] Start: 1965 Hepatitis C screening HEPATITI S C VIRUS SCREENING [facility] Start: 1965 Lipid panel LIPIDS [facility] Start: 1965 Tetanus vaccination TETANUS [facility] Start: 1965 Urine screening for protein URINE MICROALBUMIN TEST [facility] End: 03-16-2024 Bacteria identified in Blood by Culture [facility] Comment on above: One Time for 1 Occur rences starting 03/16/2024 until 03/16/2024 Once for 1 Occurrenc es starting 03/16/2024 until 03/16/2024, 1 completed Bacteria identified in Body fluid by Culture BODY FLUID CULTURE AND DIRECT SMEAR Microbiology Routine 04/10/2024 3:44 PM EDT [facility] Work Phone: Bacteria identified in Unspecified specimen by Culture BACTERIAL CULTURE AND DIRECT SMEAR, LESION, TISSUE, DEVICE Microbiology Routine Neoplasm of uncertain behavior of skin 01/08/2024 10:14 AM EDT [facility] End: 03-20-2024 Bacteria identified in Unspecified specimen by Culture [facility] Work Phone: Comment on above: One Time for 1 Occur rences starting 03/20/2024 until 03/20/2024 End: 04-09-2024 Bacteria identified in Unspecified specimen by Culture [facility] Comment on above: One Time for 1 Occur rences starting 04/09/2024 until 04/09/2024 End: 03-16-2024 Bacteria identified in Urine by Culture [facility] Comment on above: One Time for 1 Occur rences starting 03/16/2024 until 03/16/2024 Biopsy penis separat e procedure [place] BIOPSY PENIS SEPARATE PROCEDURE [place] Charge Routine Neoplasm of uncertain behavior of skin Ordered: 01/07/2024 [facility] Work Phone: Comment on above: Ordered: 01/07/2024 End: 04-14-2025 CHEM 6 (LYTES, BUN CREA) CHEM 6 (LYTES, BUN CREA) Lab Routine Infection of organ or organ space after surgery, subsequent encounter Once a week for 6 Occurrences starting 04/14/2024 until 04/14/2025 [facility] Comment on above: Once a week for 6 Oc currences starting 04/14/2024 until 04/14/2025 End: 04-21-2024 CHOLECYSTOSTOMY/ABSCESS DRAIN TUBE CHANGE [facility] Work Phone: Comment on above: One Time for 1 Occur rences starting 04/21/2024 until 04/21/2024 End: 04-14-2025 Complete blood count with white cell differential, automated CBC, EDIF, PLATELET Lab Routine Infection of organ or organ space after surgery, subsequent encounter Once a week for 6 Occurrences starting 04/14/2024 until 04/14/2025 [facility] Comment on above: Once a week for 6 Oc currences starting 04/14/2024 until 04/14/2025 End: 11-29-2023 CT Abdomen and Pelvis W contrast IV [facility] Comment on above: 1 Occurrences starti ng 11/29/2023 until 11/29/2023 End: 04-10-2024 DRAINAGE SOFT TISSUE PERCUTANEOUS W/ IMAGE GUIDANCE [facility] Work Phone: Comment on above: One Time for 1 Occur rences starting 04/10/2024 until 04/10/2024 FUNGUS CULTURE (SKIN , HAIR, NAILS) FUNGUS CULTURE (SKIN, HAIR, NAILS) Microbiology Routine Neoplasm of uncertain behavior of skin 01/08/2024 10:14 AM EDT [facility] Fungus identified in Unspecified specimen by Culture FUNGUS CULTURE Microbiology Routine 04/12/2024 11:39 PM EDT [facility] Work Phone: End: 03-20-2024 GENERAL PROCEDURE GENERAL PROCEDURE Procedures Routine Once for 1 Occurrences starting 03/20/2024 until 03/20/2024 [facility] Comment on above: Once for 1 Occurrenc es starting 03/20/2024 until 03/20/2024 End: 04-22-2024 GENERAL PROCEDURE GENERAL PROCEDURE Procedures Routine Once for 1 Occurrences starting 04/22/2024 until 04/22/2024 [facility] Work Phone: Comment on above: Once for 1 Occurrenc es starting 04/22/2024 until 04/22/2024 End: 04-14-2025 Hepatic function 2000 panel - Serum or Plasma HEPATIC FUNCTION PANEL Lab Routine Infection of organ or organ space after surgery, subsequent encounter Once a week for 6 Occurrences starting 04/14/2024 until 04/14/2025 [facility] Comment on above: Once a week for 6 Oc currences starting 04/14/2024 until 04/14/2025 Image-guided cathete r fluid collection drainage DRAINAGE SOFT TISSUE PERCUTANEOUS W/ IMAGE GUIDANCE [facility] Mycobacterium sp identified in Tissue by Organism specific culture ACID FAST CULTURE, TISSUE Microbiology Routine Neoplasm of uncertain behavior of skin 01/08/2024 10:14 AM EDT [facility] POCT URINE DIPSTICK AUTOMATED POCT URINE DIPSTICK AUTOMATED Point of Care Testing Routine Abnormal urine Ordered: 01/29/2024 [facility] Comment on above: Ordered: 01/29/2024 Radiological guidanc e prq drg w/plmt cath rs&i GUIDANCE U/S PERCUTANEOUS DRAINAGE W/ CATHETER PLACEMENT [facility] End: 04-13-2024 Standard ECG ECG ECG Routine One Time for 1 Occurrences starting 04/13/2024 until 04/13/2024 [facility] Comment on above: One Time for 1 Occur rences starting 04/13/2024 until 04/13/2024 SURG PATH REQUEST SURG PATH REQU EST Surg Path Routine Malignant neoplasm of penis 08/16/2023 10:31 AM EST [facility] Work Phone: SURG PATH REQUEST SURG PATH REQU EST Surg Path Routine Neoplasm of uncertain behavior of skin 01/08/2024 10:14 AM EDT [facility] SURG PATH REQUEST [facility] Comment on above: Release Upon Orderin g for 1 Occurrences starting 01/22/2024, 1 completed SURG PATH REQUEST [facility] Work Phone: Comment on above: Release Upon Orderin g for 1 Occurrences starting 03/05/2024 End: 03-16-2024 US.doppler Lower extremity vein - right VASC DUPLEX VENOUS EXTREMITY LOWER RIGHT Imaging STAT One Time for 1 Occurrences starting 03/16/2024 until 03/16/2024 [facility] Comment on above: One Time for 1 Occur rences starting 03/16/2024 until 03/16/2024 End: 04-11-2024 VANCOMYCIN LEVEL, TROUGH (PRE DRUG LEVEL) VANCOMYCIN LEVEL, TROUGH (PRE DRUG LEVEL) Lab Routine One Time for 1 Occurrences starting 04/11/2024 until 04/11/2024 [facility] Comment on above: One Time for 1 Occur rences starting 04/11/2024 until 04/11/2024 Immunizations Immunization Date Immunization Notes Care Provider [facility] 12-15-2023 tetanus toxoid, reduced diphtheria toxoid, and acellular pertussis vaccine, adsorbed NIDAL FAIZANA DO [facility] 08-05-2023 influenza, injectabl e, quadrivalent, contains preservative; Translations: [Fluarix PF Quadrivalent ] WANDA FELIPE MD [facility] 08-05-2023 influenza virus vaccine, unspecified formulation Izaiah Maurer MD Work Phone: [facility] 08-14-[address] ASMITA GARZA MD [facility] 04-09-2022 influenza virus vaccine, unspecified formulation DR ASMITA GARZA MD [facility] 04-09-[address] ASMITA GARZA MD [facility] 03-29-2021 influenza virus vaccine, unspecified formulation WANDA FELIPE MD [facility] 10-06-2020 Covid (Moderna) [facility] 09-08-2020 Covid (Moderna) [facility] Comment on above: Result Comment: 2022: [id number] 06-16-2020 influenza virus vaccine, unspecified formulation WANDA FELIPE MD [facility] 04-16-2019 influenza virus vaccine, unspecified formulation WANDA FELIPE MD [facility] 04-17-2018 influenza virus vaccine, unspecified formulation WANDA FELIPE MD [facility] 04-18-2017 influenza virus vaccine, unspecified formulation WANDA FELIPE MD [facility] 04-19-2016 influenza virus vaccine, unspecified formulation WANDA FELIPE MD [facility] 07-01-2015 influenza virus vaccine, unspecified formulation WANDA FELIPE MD [facility] 03-15-2014 influenza virus vaccine, unspecified formulation WANDA FELIPE MD [facility] Payers Date Payer Category Payer Self-pay [id number] 2021 Private Health Insurance [facility] [id number] 2005 Managed Care (unspecified) MMO [id number] 2005 Unknown [id number]. [id number]. [id number] 2005 Unknown [id number] 1965 Unknown [id number] 2.840.1.932789.3.579.2. 1965 Unknown [id number] .840.1.949152.3.579.2 1965 Unknown [id number] 2.840.1.325636.3.579.2. 1965 Unknown [id number] .840.1.845895.3.579.2 1965 Unknown [id number] .840.1.421897.3.579.2. 1965 Unknown [id number] 2.16.840.1.169393.3.579.2. 1965 Unknown [id number] 2.16.840.1.700296.3.579.2. 1965 Unknown [id number] 2.16.840.1.091986.3.579.2 1965 Unknown [id number] 2.16.840.1.640485.3.579.2. 62 1965 Unknown [id number] 2.16.840.1.757409.3.579.2 1965 Unknown [id number] 2.16.840.1.569979.3.579.2. 62 1965 Unknown [id number] 2..840.1.450410.3.579.2. 1965 Unknown [id number] 2..840.1.307141.3.579.2. 1965 Unknown [id number] ..840.1.478196.3.579.2 1965 Unknown [id number] ..840.1.286551.3.579.2 1965 Unknown [id number] 2..840.1.714941.3.579.2 1965 Unknown [id number] 2..840.1.670286.3.579.2. 594 1965 Unknown [id number] 2..840.1.614426.3.579.2. 594 1965 Unknown [id number] .840.1.742157.3.579.2. 594 1965 Unknown [id number] ..840.1.175472.3.579.2. 594 1965 Unknown [id number] ..840.1.115819.3.579.2. 594 1965 Unknown [id number] 2..840.1.697033.3.579.2. 594 1965 Unknown [id number] 2.16.840.1.055966.3.579.2. 594 1965 Unknown [id number] 2.16.840.1.805171.3.579.2. 594 1965 Unknown [id number] .840.1.745907.3.579.2. 594 1965 Unknown [id number] 2.840.1.298296.3.579.2. 594 1965 Unknown [id number] .840.1.900860.3.579.2. 594 1965 Unknown [id number] .840.1.779002.3.579.2. 594 1965 Unknown [id number] .840.1.522401.3.579.2. 594 1965 Unknown [id number] .840.1.698783.3.579.2. 594 1965 Unknown [id number] 840.1.107930.3.579.2. 594 1965 Unknown [id number] 840.1.696575.3.579.2. 594 1965 Unknown [id number] .840.1.528615.3.579.2. 594 1965 Unknown [id number] .840.1.182966.3.579.2. 594 1965 Unknown [id number] 840.1.883995.3.579.2. 594 1965 Unknown [id number] 840.1.864185.3.579.2. 594 1965 Unknown [id number] 840.1.706328.3.579.2. 594 1965 Unknown [id number] .840.1.258657.3.579.2. 594 1965 Unknown [id number] 840.1.960210.3.579.2. 594 1965 Unknown [id number] 840.1.586662.3.579.2. 594 1965 Unknown [id number] 2.840.1.397513.3.579.2. 594 1965 Unknown [id number] 2.840.1.064630.3.579.2. 594 1965 Unknown [id number] 2.840.1.864726.3.579.2. 594 1965 Unknown [id number] 2.840.1.466954.3.579.2. 594 1965 Unknown [id number] 2.840.1.829223.3.579.2. 594 1965 Unknown [id number] 2.840.1.724000.3.579.2. 594 1965 Unknown [id number] 840.1.801005.3.579.2. 594 1965 Unknown [id number] .840.1.785515.3.579.2. 594 1965 Unknown [id number] 2.840.1.624716.3.579.2. 594 1965 Unknown [id number] .840.1.222628.3.579.2. 594 Unknown [id number] 840.1.923799.3.579.2. 462 Unknown [id number] 840.1.483720.3.579.2. 462 Unknown [id number] 840.1.136484.3.579.2. 462 Unknown [id number] 840.1.343259.3.579.2. 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 [facility] Comment on above: chewing tobacco History of tobacco use Current smoker [facility] History of tobacco use Cigarette Smoker [facility] Start: 08-02-2023 End: 05-19-2024 Tobacco use and exposure Former smokeless tobacco user [facility] History of tobacco use Chews Tobacco [facility] Start: 04-13-2015 End: 08-02-2023 Alcohol intake Current drinker of alcohol (finding) [facility] Start: 08-02-2023 End: 03-08-2025 Alcohol intake [facility] Start: 08-02-2023 End: 03-08-2025 Tobacco use panel [facility] Start: 1965 Sex Assigned At Not on file [facility] Has the [employer], [employer], [place], or water [employer] threatened to shut off services in your home in past 12Mo No [facility] (I/We) worried isaiah chao (my/our) food would run out before (I/we) got money to buy more. Never true [facility] How often to you hav e a drink containing alcohol? 2-3 time sa week [facility] How many standard drinks containing alcohol do you have on a typical day? 3 or 4 [facility] How often do you hav e 6 or more drinks on 1 occasion? Never [facility] How often do you hav e 6 or more drinks on 1 occasion? Monthly [facility] History of tobacco use Cigar Smoker [facility] Start: 01-07-2019 End: 07-31-2023 Sex Male (finding) [facility] Start: 09-25-2024 Gender identity Identifies as male gender (finding) [facility] Start: 09-25-2024 Sexual orientation Heterosexual (althea lorenzana) [facility] Start: 01-03-2024 [facility] Never smoked tobacco (finding) [facility] Start: 04-13-2015 Tobacco smoking stat us [facility] Light tobacco smoker [facility] Start: 04-13-2015 Tobacco use and exposure User of smokeless tobacco [facility] Start: 05-13-2014 Tobacco Comment Pt will occ sm escobar a cigar & chew tobacco. [facility] Medical Equipment Procedure Code Equipment Code Equipment Origin al Text Equipment Identifier Dates Use new needle f or each insulin injection. [id number] Start: 04-14-2024 Goals Date Patient Goal Desired Activity /State Personal health goal Comment on above: Formatting of this n ote might be different from the original. Plan of Care. Observe for Sign's and Symptom's of Infection Melodie Medrano Jr. will remain free of signs and symptoms of infection. As evidenced by Melodie and caregiver's ability to know what signs and symptoms to report, when to report them, and who to report them too. Please report any new signs of infection including: Temperature of 100.4 F or above, chills or sweats, Tissues with increasing warmth or hot to the touch when compared to the surrounding area. Color changes in drainage. Red, clear or pale yellow is normal. Other colors should be reported. Increase in the amount of drainage. Increasing pain and tenderness Increased swelling Wound or drainage with a new foul odor Constant nausea and or vomiting more than once or the inability to drink or eat without vomiting. Formatting of this n ote might be different from the original. Plan of Care. Self-Management of Surgical Drain, ROSA MARIA Collapsible Drain(s): Melodie Medrano Jr. and his designated caregiver were taught Drain Care and Management. Melodie Medrano Jr. and this caregiver performed a Teach-Back of Drain Care and Management including: Pt/caregiver demonstrated- Drain site care, stripping of drain(s), emptying drain(s) and recording drain output in mililiters separately for each drain. Pt/caregiver demonstrated the use of a measuring cup that was provided and accurately measured and record onto drain output record. Pt/caregiver will call [facility] nurse each Saturday and to report each drain output separately. Pt/caregiver are able to identify reasons to call the clinic to report problems with a drain site, drainage or drain function. Formatting of this n ote might be different from the original. Plan of Care. Antibiotic Prescription: Melodie states understanding for oral antiinfectives prescription. Melodie has been prescribed 3 oral antiinfectives to take. Melodie has been educated to consume all the antibiotic doses as prescribed until all the medicine is gone. Please be sure to complete the entire course of antibiotics your doctor ordered. Even if you are feeling better, you need to finish all of the medicine. Melodie will stop taking the medication and call 911 immediately if he experiences signs of a severe allergic reaction: difficultly breathing, swelling of your lips, tongue or throat. Melodie knows to stop taking and call the clinic if he experiences other signs of sensitivity to the antibiotics such as a itching, hives or a rash. OPAT- 3 PO medications x6 Weeks This OPAT was prescribed by [facility] ID team. Melodie will go to local OP Lab ([facility]) every Saturday with lab results faxed to [facility]. Start of Care 04.11.24- EOT 05.18.24 (tentative) As of 04.15.24 Melodie was tolerating 3 PO antiinfective therapy with some nausea. This PCRM requested and MARINA sent prescription to Melodie preferred pharmacy for antiemetic to have on hand. Formatting of this n ote might be different from the original. Plan of Care. DVT Prophylaxis. 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 Melodie confirmed script is active and receiving medication from pharmacy and plan to resume medication at home as instructed. Melodie and caregiver declined more instruction regarding EZ at this time. Functional Status Date Assessment Result Facility 04-21-2024 Are you deaf, or do you have serious difficulty hearing No 04/21/2024 12:14 AM Marielena Buckner, [place] No [facility] 04-21-2024 Are you blind, or do you have serious difficulty seeing, even when wearing glasses No 04/21/2024 12:14 AM Marielena Buckner RN No [facility] 04-21-2024 Do you have serious difficulty walking or climbing stairs No 04/21/2024 12:14 AM Marielena Buckner, [place] No [facility] 04-21-2024 Do you have difficul ty dressing or bathing No 04/21/2024 12:14 AM Marielena Buckner, [place] No [facility] 04-21-2024 Because of a physica l, mental, or emotional condition, do you have difficulty doing errands alone such as visiting a physician's office or shopping No 04/21/2024 12:14 AM Marielena Buckner RN No [facility] 03-10-2024 Functional Status Independent [facility] 02-27-2024 Functional Status Independent [facility] 02-27-2024 Functional Status Standard Safet y ID band on, Call device within reach, Bed in low position, Wheels locked, personal items within reach, Bedside Cart Locked, Visitor at bedside, Safety level maintained [facility] 02-02-2024 Functional Status Independent [facility] 12-21-2023 Functional Status Independent [facility] 12-15-2023 Functional Status Awake [facility] 02-15-2015 Are you deaf, or do you have serious difficulty hearing No 02/15/2015 2:46 PM EDT Lucille Avila LPN [facility] 02-15-2015 Are you blind, or do you have serious difficulty seeing, even when wearing glasses No 02/15/2015 2:46 PM EDT Lucille Avila LPN No [facility] 02-15-2015 Do you have serious difficulty walking or climbing stairs No 02/15/2015 2:46 PM EDT Lucille Avila LPN No [facility] 02-15-2015 Do you have difficul ty dressing or bathing No 02/15/2015 2:46 PM EDT Lucille Avila LPN No [facility] 02-15-2015 Because of a physica l, mental, or emotional condition, do you have difficulty doing errands alone such as visiting a physician's office or shopping No 02/15/2015 2:46 PM EDT Lucille Avila LPN No [facility] Mental Status Date Assessment Result Facility 04-21-2024 Because of a physica l, mental, or emotional condition, do you have serious difficulty concentrating, remembering, or making decisions No 04/21/2024 12:14 AM EDT Marielena Correia RN No [facility] 03-10-2024 Mental Status Orientation Oriented x 4 [facility] 02-27-2024 Mental Status Orientation Oriented x 4 [facility] 02-27-2024 Mental Status [facility] 02-02-2024 Mental Status Orientation Oriented x 4 [facility] 02-01-2024 Mental Status [facility] 12-21-2023 Mental Status Oriented x 4 [facility] 12-15-2023 Mental Status Oriented x 4 [facility] 02-15-2015 Because of a physica l, mental, or emotional condition, do you have serious difficulty concentrating, remembering, or making decisions No 02/15/2015 2:46 PM EDT Lucille Avila LPN No [facility] Clinical Notes 08-02-2023 to 03-08-2025 Ruben Wilson PT, DPT - 03/08/2025 4:53 PM Ruben Aldrich PT, DPT - 03/08/2025 4:20 PM EDTAssessment & Plan Note - Mark Ly MD - 11/18/2024 7:37 AM EDTLaboratoryDischarge Instructions Note Date & Type Note Facility 03-08-2025 History of Present illness Narrative Program_ID:[id number] Access Code: [email or web address] URL: [email or web address] Date: 03-08-2025 Prepared By: Ruben Wilson Program Notes Exercises - Hooklying Active Hamstring Stretch - 1-2 x daily - 7 x weekly - 3 sets - reps - Supine Quadriceps Stretch with Strap on Table - 1-2 x daily - 7 x weekly - 3 sets - reps - Prone Quadriceps Stretch with Strap - 1-2 x daily - 7 x weekly - 3 sets - reps - Supine Butterfly Groin Stretch - 1-2 x daily - 7 x weekly - 3 sets - reps Episode Visit Count: 1 Therapist That Will Accept/Oversee The Plan Of Care: Ruben Wilson Start of Care Date: 03/08/25 Onset Date: 03/08/24 Patient Identified by Name and Date of : Yes REHABILITATION AND SPORTS THERAPY PHYSICAL THERAPY EVALUATION PLAN OF CARE: Assessment: Melodie Medrano presents with chief complaint of BLE pain that interferes with rising from a chair, stair negotiation, walking, standing . The patient presents with impairments in range of motion and strength. Patient did not complete the PROMIS (Patient Reported Outcome Measures Information System). Prognosis for therapy is Good due to: good support system/ coping skills, Prognosis may be limited due to, current objective clinical presentation chronic nature of impairments . Patient demos weakness in BLE. He demos decreased muscle flexibility in hamstrings, hip flexors and quadriceps LLE> RLE. The patient will benefit from skilled therapy services to meet the goals established for this plan of care as noted below. Goals for Episode of Care: established 03/08/25 Power in home exercise program. Patient will decrease pain rating by 2 points to meet minimal clinical important difference for numeric pain rating scale. Patient will demonstrate increase in BLE strength to 4+/5 during manual muscle testing in order to improve function for prior functional tasks and work tasks. Patient will increase flexibility of Hamstring flexibility to 30 degrees bilaterally and quad flexibility 8 inches bilaterally to improve mechanics and decrease pain. Perform prolonged walking with decreased report of symptoms/pain in 4 weeks. Patient will improve 30 second sit to stand to demonstrate improvement in functional lower extremity strength. Patient Goals: improve toelrance to walking and reduce tightness in LE. Time Frame for Goals and Treatment : 04/05/25 Planned Interventions, Frequency, and Duration: Current Frequency: 1x/week Duration: 6 weeks Total Number of Visits Planned: 6 Planned Treatment Interventions: Therapeutic exercise (85368), Neuromuscular re-education (87964), Manual therapy (53623), Therapeutic activities (78511), Self-long-term management (18560), Gait Training (02018) PLAN FOR NEXT VISIT: LE stretching and strengthening, balance, gait, endurance Patient demonstrates good understanding of plan of care and treatment. The above goals and plan of care were discussed and agreed upon by patient/family. SUBJECTIVE: Patient notes he has been in the hospital for 21 days last year. 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 He notes had multiple drains placed in the legs and had drains for a total of 8 weeks. He notes bilateral neuropathy for years .He is having discomfort in bilateral quads. He notes is unable to walk for prolonged periods of walking or standing. He notes he is not doing any stretches or strengthening at this time. Patient Goals: improve toelrance to walking and reduce tightness in LE. 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 sports Intake Information: Prescription present Falls Interview: No positive findings with falls interview Pain: Pain Pain Level: 3 Pain Location: Leg - Right, Leg - Left Description: Aching Frequency: Continuous Post Treatment Pain Post Treatment Pain Level: No Change Post Treatment Pain Location: Leg - Right, Leg - Left Post Treatment Pain Description: Aching PROMIS Scales 03/07/2025 Higher is Better Self-Eff Symptom - T Score 43 (Average) Self-Eff Symptom - Percentile 24 Mobility - T Score 39 (moderate dysfunction) Mobility - Percentile 14 T-Score and Percentile Interpretation T-scores: mean of general population = 50. 5 points is clinically meaningfully difference Percentiles provide an indication of how the patient's score ranks in relation to the general population. Higher percentile rankings indicate better function/quality of life. 50th percentile is the average of the general population and indicates half of respondents had a worse score. OBJECTIVE MEASURES WITH LEVEL OF FUNCTION: LE Flexibility Flexibility: Hamstring Flexibility, Quadriceps Flexibility R Hamstring Flexibility: 50 L Hamstring Flexibility: 35 R Quadriceps Flexibility: 9 inches L Quadriceps Flexibility: 10 inches LE Strength R Hip Flexion (L2): 4/5 R Hip ABduction: 4/5 R Hip ADduction: 4/5 R Knee Extension (L3): 4+/5 R Knee Flexion: 4+/5 R Ankle Dorsiflexion (L4): 4+/5 R Ankle Plantar Flexion: 4+/5 L Hip Flexion (L2): 4/5 L Hip ABduction: 4/5 L Hip ADduction: 4/5 L Ankle Dorsiflexion (L4): 4-/5 L Ankle Plantar Flexion: 4+/5 Gait Gait: Independent Gait Distance (feet): 50 Gait Device: None Gait Deviations: General Deviations General Deviations/Observations: Arm swing decreased, Geni decreased, Step length decreased Functional Performance Test Results 30 Second Chair Stand Test: 11 reps Education: Education Learning Preferences: Demonstration, Explanation, Performance, Printed Materials Barriers: None Learning/educational needs: Safety, Home exercise program, Plan of Care Education Provided: Yes, see treatment interventions for education provided Education Provided To: Patient Education Mode/Type: Demonstration, Explanation/Discussion, Literature/Printed Materials Response to Education/Teach Back: States/Identifies, Return Demonstration TREATMENT: PT Treatment Interventions: Therapeutic Exercise, Self-Group Home Management Evaluation Evaluation Therapeutic Exercise: 1: *Butterfly stretch 2x20 2: *prone quad stretch 2x30 3: *supine hamstring stretch 2x30 4: *supine hip flexor stretch with strap 2x30 Skilled Intervention: Patient was educated in proper exercise technique and purpose for exercises. Reviewed and educated patient on additions/changes for home exercise program as above (*). Skilled judgment was used in selection of appropriate interventions. Patient education as noted. Self-Group Home Management: 1: Patient educated on examination findings,POC, and HEP to help improve muscle flexibility Skilled Intervention: Skilled judgment in the selection of proper modification for activity of daily living/home management based on clinical presentation, deficits, and needs. Activity progression based on professional judgement. Billing * Evaluation Moderate Complexity: 1 Unit Therapeutic Exercise Treatment Minutes: 10 Self-Care/Home Management Treatment Minutes: 5 Total Session Time (minutes): 42 Session Start Time : 1620 Session Stop Time : 1702 Ruben Wilson PT, DPT documented in this encounter [facility] 03-08-2025 Note HNO ID: [id number] Author: WILSON, RUBEN, PT, DPT Service: ? Author Type: Physical Therapist Type: Progress Notes Filed: 03/08/2025 17:03 Note Text: Episode Visit Count: 1 Therapist That Will Accept/Oversee The Plan Of Care: Ruben Wilson Start of Care Date: 03/08/25 Onset Date: 03/08/24 Patient Identified by Name and Date of : Yes REHABILITATION AND SPORTS THERAPY PHYSICAL THERAPY EVALUATION PLAN OF CARE: Assessment: Melodie Medrano presents with chief complaint of BLE pain that interferes with rising from a chair, stair negotiation, walking, standing . The patient presents with impairments in range of motion and strength. Patient did not complete the PROMIS? (Patient Reported Outcome Measures Information System). Prognosis for therapy is Good due to: good support system/ coping skills, Prognosis may be limited due to, current objective clinical presentation chronic nature of impairments . Patient demos weakness in BLE. He demos decreased muscle flexibility in hamstrings, hip flexors and quadriceps LLE> RLE. The patient will benefit from skilled therapy services to meet the goals established for this plan of care as noted below. Goals for Episode of Care: established 03/08/25 Power in home exercise program. Patient will decrease pain rating by 2 points to meet minimal clinical important difference for numeric pain rating scale. Patient will demonstrate increase in BLE strength to 4+/5 during manual muscle testing in order to improve function for prior functional tasks and work tasks. Patient will increase flexibility of Hamstring flexibility to 30 degrees bilaterally and quad flexibility 8 inches bilaterally to improve mechanics and decrease pain. Perform prolonged walking with decreased report of symptoms/pain in 4 weeks. Patient will improve 30 second sit to stand to demonstrate improvement in functional lower extremity strength. Patient Goals: improve toelrance to walking and reduce tightness in LE. Time Frame for Goals and Treatment : 04/05/25 Planned Interventions, Frequency, and Duration: Current Frequency: 1x/week Duration: 6 weeks Total Number of Visits Planned: 6 Planned Treatment Interventions: Therapeutic exercise (87557), Neuromuscular re-education (40555), Manual therapy (06223), Therapeutic activities (98272), Self-long-term management (72512), Gait Training (40067) PLAN FOR NEXT VISIT: LE stretching and strengthening, balance, gait, endurance Patient demonstrates good understanding of plan of care and treatment. The above goals and plan of care were discussed and agreed upon by patient/family. SUBJECTIVE: Patient notes he has been in the hospital for 21 days last year. 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 He notes had multiple drains placed in the legs and had drains for a total of 8 weeks. He notes bilateral neuropathy for years .He is having discomfort in bilateral quads. He notes is unable to walk for prolonged periods of walking or standing. He notes he is not doing any stretches or strengthening at this time. Patient Goals: improve toelrance to walking and reduce tightness in LE. 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 sports Intake Information: Prescription present Falls Interview: No positive findings with falls interview Pain: Pain Pain Level: 3 Pain Location: Leg - Right, Leg - Left Description: Aching Frequency: Continuous Post Treatment Pain Post Treatment Pain Level: No Change Post Treatment Pain Location: Leg - Right, Leg - Left Post Treatment Pain Description: Aching PROMIS Scales 03/07/2025 Higher is Better Self-Eff Symptom - T Score 43 (Average) Self-Eff Symptom - Percentile 24 Mobility - T Score 39 (moderate dysfunction) Mobility - Percentile 14 T-Score and Percentile Interpretation T-scores: mean of general population = 50. 5 points is clinically meaningfully difference Percentiles provide an indication of how the patient's score ranks in relation to the general population. Higher percentile rankings indicate better function/quality of life. 50th percentile is the average of the general population and indicates half of respondents had a worse score. OBJECTIVE MEASURES WITH LEVEL OF FUNCTION: LE Flexibility Flexibility: Hamstring Flexibility, Quadriceps Flexibility R Hamstring Flexibility: 50 L Hamstring Flexibility: 35 R Quadriceps Flexibility: 9 inches L Quadriceps Flexibility: 10 inches LE Strength R Hip Flexion (L2): 4/5 R Hip ABduction: 4/5 R Hip ADduction: 4/5 R Knee Extension (L3): 4+/5 R Knee Flexion: 4+/5 R Ankle Dorsiflexion (L4): 4+/[address] (more content not included)... [facility] 11-18-2024 Evaluation + Plan note Associated Problem(s): Other hypospadias Patient has a penile urethrostomy s/p partial penectomy for penile cancer. He is having some urine spraying, but this is actually because his meatus is wide open. We discussed that I could try to narrow it, but that the issue was really a fluid dynamics issue and that I did not think that I could correct this surgery. If he was having obstruction from a narrowed lumen, I could certainly open it up, but I do not think I could appropriately narrow the lumen without risking over-constriction. The patient understood and was not interested in surgery at this time. We also discussed improved cosmesis of his distal penis. I explained that I could attempt buccal resurfacing, but that I was not sure I could improve the cosmesis all that much. Further, I explained that not only could I not improve his sensation, but that surgery may decrease his sensation. [facility] 11-18-2024 Miscellaneous Notes Associated Problem(s): Other hypospadias Patient has a penile urethrostomy s/p partial penectomy for penile cancer. He is having some urine spraying, but this is actually because his meatus is wide open. We discussed that I could try to narrow it, but that the issue was really a fluid dynamics issue and that I did not think that I could correct this surgery. If he was having obstruction from a narrowed lumen, I could certainly open it up, but I do not think I could appropriately narrow the lumen without risking over-constriction. The patient understood and was not interested in surgery at this time. We also discussed improved cosmesis of his distal penis. I explained that I could attempt buccal resurfacing, but that I was not sure I could improve the cosmesis all that much. Further, I explained that not only could I not improve his sensation, but that surgery may decrease his sensation. documented in this encounter [facility] 11-17-2024 History of Present illness Narrative UROLOGY OUTPATIENT CONSULTATION: HISTORY OF PRESENT ILLNESS Melodie Medrano Jr. is a 59 y.o. male who presents for evaluation of spraying of urine History of HTN, DM, DVT, recurrent squamous cell penile cancer The patient's course has been defined by the following events: -02/09/21 he underwent a shave biopsy for well-differentiated squamous cell carcinoma. 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 -pT3 penile cancer s/p partial penectomy and 03/06/24 b/l RAIL. -Since his catheter came out, he has had issues with urine spraying. -No feelings of constriction, no feelings of incomplete emptying -Voids with a strong stream -No hematuria -No UTIs Relevant Medications: DOAC Physical Exam: Gen: No acute distress Abd: Soft, non-distended : Wide open penile urethrostomy, Calibrated to 24 fr in clinic without any issues Imaging: CT Pelvis 09/29/2024 IMPRESSION: 1. No specific evidence of metastatic disease within the visualized pelvis. 2. Resolved inguinal fluid collections with some persistent inguinal soft tissue thickening which is also improved from prior. This is favored to reflect a post treatment change. Labs: Lab Results Component Value Date SODIUM 138 04/22/2024 POTASSIUM 4.1 04/22/2024 CHLORIDE 109 (H) 04/22/2024 CO2 20 (L) 04/22/2024 BUN 34 (H) 04/22/2024 CREATSERUM 1.01 09/25/2024 GLUCOSE 135 (H) 04/22/2024 Lab Results Component Value Date WBC 3.70 (L) 04/22/2024 HGB 9.1 (L) 04/22/2024 HCT 27.0 (L) 04/22/2024 PLATELET 119 (L) 04/22/2024 MCV 86.3 04/22/2024 Lab Results Component Value Date HGBA1C 7.4 (H) 04/12/2024 Assessment and Plan: Melodie Medrano Jr. is a 59 y.o. male who presented today for evaluation of Urine spraying. We discussed the following problems: Other hypospadias Patient has a penile urethrostomy s/p partial penectomy for penile cancer. He is having some urine spraying, but this is actually because his meatus is wide open. We discussed that I could try to narrow it, but that the issue was really a fluid dynamics issue and that I did not think that I could correct this surgery. If he was having obstruction from a narrowed lumen, I could certainly open it up, but I do not think I could appropriately narrow the lumen without risking over-constriction. The patient understood and was not interested in surgery at this time. We also discussed improved cosmesis of his distal penis. I explained that I could attempt buccal resurfacing, but that I was not sure I could improve the cosmesis all that much. Further, I explained that not only could I not improve his sensation, but that surgery may decrease his sensation. This represents a stable illness/condition for which an extensive amount of review including medical records, available test results, an independent history and ordering tests of my own was required to formulate a plan. This plan includes a recommendation for management with observation with a low risk of morbidity.. After the discussion outlined above, the patient and I mutually agreed on the following course of action: -Return PRN for voiding dysfunction At the end of the visit, the patient was given time to answer any and all remaining questions. I would be happy to see them again outside of what we agreed above, should further issues arise. Mark Ly MD documented in this encounter [facility] 09-25-2024 History of Present illness Narrative Images from the original note were not included. HPI Melodie Hernandez Mitchell Luther is a 59 y.o. 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 Patient first presented to local tobacco sizer in January 2021 with an itchy scaly lesion on the undersurface of his penis. On 02/09/21 he underwent a shave biopsy for well-differentiated squamous cell carcinoma. That was then follow up with a MOHS procedure in 03/24/2021. In April of 2023 he noted a recurrent lesion and had another shave biopsy on 05/10/23 that noted pathology consistent with squamous cell carcinoma in situ that extended into the deep margin. On 06/28/23 the underwent another excision of invasive well-differentiated squamous cell carcinoma, -SM, pT1 NxMx. Patent referred by Dr. Kylee Cantor local medical oncologist. pT3 penile cancer s/p partial penectomy and 03/06/24 b/l RAIL. Admitted 03/16 for IR drain on 03/20 of right groin/thigh collection. Admitted 04/09 for IR drain on 04/10 of left inguinal fluid collection and discharged home on oral augmentin and cipro x 10 day course. 04/14/24 for ROSA MARIA culture +mucor requiring IV antifungal treatment He was hospitalization from 04/20/24 to 04/22/24 for left inguinal drain malfunction, nausea and vomiting, poor PO intake, KEYONNA. ID consulted for Abx, resultant culture data with high ADEOLA to prior azole, transitioned to posa and transitioned to eliquis due to med-med interaction with xeralto, will continue Cipro and Augmentin for 6 weeks, close follow up with ID. KEYONNA has improved since admission with fluid resuscitation. 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 Denies f/c, n/v, cough, SOB, MARTINEZ, dizziness, bone pain. Normal bowel habits. Energy and appetite are good. Occasional left groin pain. Reports tight skin and numbness on bilateral thighs. Wearing LE compression socks. Occasionally has a spraying stream at least once a day. He finds this bothersome and often uses a container to void in. No dysuria. No GH. No new skin lesions he is aware of. Pathology 06/28/23 04/28/23 ECOG Performance Status Performance status: Karnofsky scale 100 (ECOG grade 0) No limitations Past Medical History He has a past medical history of Arrhythmia, Bleeding disorder (September 1987), Diabetes mellitus, Essential hypertension, benign, Hyperlipidemia, Melanoma, Penile ca, and Pulmonary embolism. Past Surgical History He has a past surgical history that includes acl reconstruction; foot surgery (Bilateral); vasectomy; back surgery; other surgical (Right); amputation penis partial (N/A, 01/22/2024); drainage soft tissue percutaneous w/ image guidance (N/A, 03/20/2024); drainage soft tissue percutaneous w/ image guidance (Left, 04/10/2024); change percutaneous tube/drainage catheter w/ s&i (Left, 04/22/2024); and lymphadenectomy inguinofemoral robotic (Bilateral, 03/05/2024). Medications He has a current medication list which includes the following prescription(s): amlodipine, vitamin d, lisinopril, metformin-xr, metoprolol succinate, omega-3 acid ethyl esters, rosuvastatin, tamsulosin hcl, turmeric, xarelto, acetaminophen, freestyle rhonda 3 sensor, CUSTOM MEDICATION, cyanocobalamin, eliquis, novolog flexpen, pen needles, and prochlorperazine. Allergies He has no known allergies. Social History He reports that he has quit smoking. His smoking use included cigars. He has quit using smokeless tobacco. His smokeless tobacco use included chew. He reports current alcohol use of about 4.0 standard drinks of alcohol per week. He reports that he does not use drugs. Family History He family history includes Aneurysm in his father; Bleeding or Clotting Problems in his maternal grandmother and mother; Cancer- Other in his father; Diabetes in his paternal uncle; Heart Disease - Other in his father; Lung Cancer in his maternal grandmother. Review of Systems Constitutional: No fevers or chills Skin: Negative for rash Endocrine: No heat/cold intolerance Cardiovascular: Negative for chest pain or dyspnea on exertion Respiratory: Negative for shortness of breath or wheezing Gastrointestinal: No constipation, nausea or vomiting Genitourinary: As in HPI Musculoskeletal: No new joint pain Neurological: Negative for frequent headaches or dizziness Lymph/Heme: Negative for leg swelling or calf pain. PHYSICAL EXAM BP 148/88 Pulse 71 Temp 97 F (36.1 C) Resp 16 Ht 1.956 m (6' 5) Wt 109.8 kg (242 lb) SpO2 99% BMI 28.70 kg/m Smoking Status Former Constitutional: NAD, WDWN. HEENT: NCAT. Conjunctivae normal. Cardiovascular: NoJVD. No LE Edema Pulmonary/Chest: Respirations are even and non-labored bilaterally. Bilateral chest rise. Abdominal: Soft. No distension, tenderness, masses or guarding. Neurological: Cranial Nerves II-XII grossly intact. Normal gait. Extremities: KASH. Warm. No cyanosis. Skin: [place], warm and dry. No rashes noted. Incision sites well-healed Psychiatric: Normal mood and affect. Normal insight. CVA = no CVA tenderness Penis = penis with no blood or discharge at meatus, no plaques, erythremia at urethra Diagnostic Tests None currently Lab Results Component Value Date WBC 3.70 (L) 04/22/2024 HGB 9.1 (L) 04/22/2024 HCT 27.0 (L) 04/22/2024 PLATELET 119 (L) 04/22/2024 MCV 86.3 04/22/2024 Lab Results Component Value Date SODIUM 138 04/22/2024 POTASSIUM 4.1 04/22/2024 CHLORIDE 109 (H) 04/22/2024 CO2 20 (L) 04/22/2024 BUN 34 (H) 04/22/2024 CREATSERUM 1.01 09/25/2024 Lab Results Component Value Date LEUKOCESTUR Negative 03/16/2024 NITRITE Negative 01/29/2024 PROTEIN >=300 mg/dL (A) 01/29/2024 UPH 5.5 03/16/2024 BLOOD Large (A) 01/29/2024 SPECIFICGRAV 1.010 01/29/2024 KETONES Negative 01/29/2024 GLUCOSE 135 (H) 04/22/[address] Pelvis- today, pending final read CT ABD/PLV 05/11/24 IMPRESSION: 1. Thick walled bilateral inguinal fluid collections are decreased in size since 04/20/2024 as detailed. The previously demonstrated drainage catheter in the right inguinal collection has been removed with tract of prior drain seen along the anterior aspect of the right thigh. 2. Increased fluid along the posterior aspect of the scrotum without peripheral enhancement. Subcutaneous soft tissue edema in the scrotum elsewhere is similar. Otherwise, postsurgical changes status post partial penectomy appear stable. 3. Stable 10 mm in short axis left inguinal lymph node which is at the upper limits of normal in size. No new or enlarging lymphadenopathy by size criteria. CT ABDOMEN/PELVIS WITH CONTRAST, 11/29/2023 IMPRESSION: 1. Left inguinal lymph node with enhancing nodule in its cortex, does not meet criteria for lymphadenopathy, however raises some concern. Consider targeted ultrasound. No intra-abdominal/pelvic lymphadenopathy by size criteria. 2. Hepatic steatosis. No suspicious liver lesion. 3. Colonic diverticulosis without evidence for diverticulitis. 4. Mild prostatomegaly. Assessment Melodie Medrano Jr. is a 59 y.o. 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 Patient s/p partial penectomy 01/22/24 and bilateral inguinofemoral lymphadenotomy on 03/05/24. Attending Attestation: I, Izaiah Maurer MD, saw and examined the patient. This plan was developed with the SHIPPING CLERK/ADMIN / resident at the time of the visit. The note has been reviewed and I agree with the complete assessment and plan. I provided a substantive portion of the care for this patient. I personally performed all aspects of the medical decision making for this encounter. I have reviewed and verified this documentation and it accurately reflects our care. Summary: Doing fine. Has some urinary stream issues after partial penectomy, discussed referral to dr ly for potential reconstructive options. Separately, oncologic surveillance [address] visit. He has some discomfort in extremity, I discussed optiosn for physical therapy. He will consider this. Also discussed gabapentin as an option. Will also consider this. Discussed r/b/a and he will notify us if interested in either. Izaiah Maurer MD Certified Composites Technician of Urologic Surgery Division of Urologic Oncology [facility] [place] documented in this encounter [facility] 09-08-2024 Evaluation + Plan note Future Scheduled TestsMethylmalonic Acid, Serum 09/08/25Basic Metabolic Panel 02/15/25Ferritin //25Magnesium Level 02/15/25Vitamin B12 Level 09/08/24A1C Hemoglobin 02/15/25Iron Studies 2/25/25Vitamin D Level 02/15/25 [facility] 05-19-2024 History of Present illness Narrative Patient has verified full name and . Images from the original note were not included. Infectious Disease Clinic Follow-Up IDENTIFYING INFORMATION PATIENT: Melodie Medrano Jr. REFERRING PROVIDER: Self, Self TODAY'S DATE: 05/19/2024 REASON FOR CONSULT/FOLLOW-UP Follow up HISTORY OF PRESENT ILLNESS Melodie Medrano Jr. is a 58 y.o. male with of PMH of DM2, HTN, HLD, melanoma, penile cancer s/p resection including inguinofemoral lymphoidectomy w drain placement 03/05/24 c/b bilateral inguinal collections L>R, drain replacement w cultures growing viridans Strep, Pseudomonas putida, Enterococcus faecalis, Staph epi, and Mucor (only from the L drain). He was seen by ID and discharged on 6 wks of cipro, amox/clav, and isavuconazole (opted not to use posa due to interaction with xarelto). Unfortunately he was found to have a high ADEOLA to isavuconazole so his AC was changed from xaralto to eliquis w EOT for the antibx of 05/25 and for posa till 06/04. Repeat CT 05/11 has shown mild dec in size, he followed w Urology 05/08 w plans to continue w drains R drain placed 03/05-1-0/ L drain placed 03/05-04/13, 04/22-removed 05/18 REVIEW OF SYSTEMS Review of Systems Constitutional: Negative for fatigue, fever and unexpected weight change. Cardiovascular: Positive for leg swelling. Gastrointestinal: Positive for nausea. Negative for constipation, diarrhea and vomiting. Genitourinary: Negative for penile pain. Skin: Negative for rash. Allergic/Immunologic: Negative for environmental allergies, food allergies and immunocompromised state. Hematological: Negative for adenopathy. Psychiatric/Behavioral: Negative for agitation, behavioral problems, confusion, decreased concentration, dysphoric mood, hallucinations, self-injury, sleep disturbance and suicidal ideas. The patient is not nervous/anxious and is not hyperactive. PAST MEDICAL, SURGICAL, FAMILY, and SOCIAL HISTORY Past Medical History: Diagnosis Date Arrhythmia Bleeding disorder September 1987 Diabetes mellitus Essential hypertension, benign Hyperlipidemia Melanoma left rib cage Penile ca Pulmonary embolism Past Surgical History: Procedure Laterality Date CHANGE PERCUTANEOUS TUBE/DRAINAGE CATHETER W/ S&I Left 04/22/2024 Laterality: Left; Surgeon: Michelle Whitaker MD; [facility] DRAINAGE SOFT TISSUE PERCUTANEOUS W/ IMAGE GUIDANCE Left 04/10/2024 Laterality: Left; Surgeon: Michelle Whitaker MD; Location: [facility] INTERVENTIONAL RADIOLOGY (VIR) DRAINAGE SOFT TISSUE PERCUTANEOUS W/ IMAGE GUIDANCE N/A 03/20/2024 Laterality: N/A; Surgeon: Kisha Quarles DO; Location: [facility] INTERVENTIONAL RADIOLOGY (VIR) LYMPHADENECTOMY INGUINOFEMORAL ROBOTIC Bilateral 03/05/2024 Laterality: Bilateral; Surgeon: Izaiah Maurer MD; Location: [facility] MAIN OR AMPUTATION PENIS PARTIAL N/A 01/22/2024 Laterality: N/A; Surgeon: Izaiah Maurer MD; Location: [facility] PERIOP ACL RECONSTRUCTION BACK SURGERY FOOT SURGERY Bilateral reconstructive OTHER SURGICAL Right undescended testicle VASECTOMY Family History Problem Relation Age of Onset Bleeding or Clotting Problems Mother Aneurysm Father Cancer- Other Father melanoma Heart Disease - Other Father Lung Cancer Maternal Grandmother Bleeding or Clotting Problems Maternal Grandmother Diabetes Paternal Uncle Social History Tobacco Use Smoking status: Former Types: Cigars Smokeless tobacco: Former Types: Chew Substance Use Topics Alcohol use: Yes Alcohol/week: 4.0 standard drinks of alcohol Types: 4 Shots of liquor per week Drug use: Never MEDICATIONS Current Outpatient Medications Medication Sig Eliquis 2.5 MG tablet Take 1 tablet by mouth every 12 hours for 16 days. Posaconazole [address] per tablet Take 3 tablets by mouth every 24 hours for 16 days. Acetaminophen 325 MG tablet Take 2 tablets by mouth every 4 hours as needed for Mild Pain for up to 10 days. amLODIPine 5 MG tablet Take 1 tablet by mouth daily. Amoxicillin-clavulanate 875-125 MG tablet Take 1 tablet by mouth every 12 hours. Cholecalciferol (Vitamin D) 25 MCG (1000 UT) tablet Take 1 tablet by mouth daily. Ciprofloxacin 750 MG tablet Take 1 tablet by mouth 2 times daily. Continuous Glucose Sensor (FreeStyle Rhonda 3 Sensor) Misc Apply 1 Each topically every 14 days. CUSTOM MEDICATION Please Draw a Posaconzole, Trough (Pre drug level) on 04/27/2024 Fax results to [phone], attention (ID Attending): Dr. Adryan Velazquez and (ID Fellow): Dr. Isa Mao cyanocobalamin 100 MCG tablet Take 1 tablet by mouth daily. Elastic Bandages & Supports (Medical Compression Stockings) Misc 1 Each by Unknown route daily. insulin aspart (NovoLOG FlexPen) 100 UNIT/ML Solution Pen-injector injection Inject under the skin before meals & at bedtime as directed. Please administer 4 units for small meals and 6 units for large meals. Max daily dose of 18 units. Insulin Pen Needle (Pen [place]) 32G X 4 MM Misc Use new needle for each insulin injection. metFORMIN-XR 500 MG Tab SR 24 HR Take 1 tablet by mouth 2 times daily. Metoprolol succinate 50 MG tablet XL Take 1 tablet by mouth daily. omega-3 acid ethyl esters 1 g capsule Take 2 capsules by mouth 2 times daily. Prochlorperazine 10 MG tablet Take 1 tablet by mouth every 6 hours as needed for Nausea / Vomiting. Rosuvastatin 10 MG tablet Take 1 tablet by mouth daily. Tamsulosin HCl 0.4 MG capsule Take 1 capsule by mouth daily Turmeric (QC TUMERIC COMPLEX PO) Take by mouth. Allergies No Known Allergies PHYSICAL EXAM Vitals: 05/19/24 0855 BP: 134/80 Pulse: 74 SpO2: 95% Physical Exam Constitutional: Appearance: Normal appearance. He is normal weight. HENT: Head: Normocephalic and atraumatic. Right Ear: External ear normal. Left Ear: External ear normal. Mouth/Throat: Pharynx: Oropharynx is clear. Eyes: Extraocular Movements: Extraocular movements intact. Conjunctiva/sclera: Conjunctivae normal. Cardiovascular: Rate and Rhythm: Normal rate and regular rhythm. Pulses: Normal pulses. Heart sounds: Normal heart sounds. Pulmonary: Effort: Pulmonary effort is normal. Breath sounds: Normal breath sounds. Musculoskeletal: General: Normal range of motion. Cervical back: Normal range of motion. Neurological: General: No focal deficit present. Mental Status: He is alert and oriented to person, place, and time. Mental status is at baseline. Psychiatric: Mood and Affect: Mood normal. Behavior: Behavior normal. Thought Content: Thought content normal. Judgment: Judgment normal. LABS AND IMAGING Lab Results Component Value Date WBC 3.70 (L) 04/22/2024 HGB 9.1 (L) 04/22/2024 HCT 27.0 (L) 04/22/2024 PLATELET 119 (L) 04/22/2024 MCV 86.3 04/22/2024 Lab Results Component Value Date RBCDISTRIBU 13.3 04/22/2024 GRNLOCYT 68.8 04/20/2024 LYMPHOCYT 17.6 04/20/2024 MONOCYTELEC 10.2 04/20/2024 EOSINOPHILS 2.8 04/20/2024 BASOPHILS 0.4 04/20/2024 LYMPHOCYTABS 0.81 (L) 04/20/2024 EOSINOPHLABS 0.13 04/20/2024 PLATELET 119 (L) 04/22/2024 MPV 8.7 04/22/2024 Lab Results Component Value Date SODIUM 138 04/22/2024 POTASSIUM 4.1 04/22/2024 CHLORIDE 109 (H) 04/22/2024 CO2 20 (L) 04/22/2024 BUN 34 (H) 04/22/2024 CREATSERUM 2.24 (H) 04/22/2024 Lab Results Component Value Date ALT 12 04/22/2024 AST 14 04/22/2024 ALKPHOS 47 04/22/2024 BILITOTAL 0.2 04/22/2024 BILIDIRECT <0.1 04/22/2024 Microbiologic Data/Studies 04/09 ROSA MARIA left strept viridans Ps. [place] (S to cipro I, E faecalis (pansens) and light mucor staph epi 04/09 ROSA MARIA right Ps. [place] (S to cipro, I ceftri), E faecalis (pansens) and staph epi Mucor sensies Amphotericin 0.06 Posaconazole 0.[address] AP w con Thick walled right inguinal collection measures approximately 4.2 x 1.4 cm which is mildly decreased, previously 5.0 x 1.8 cm. Thick walled left inguinal fluid collection is redemonstrated containing a percutaneous drainage catheter. This is decreased in size since 04/20/2024 now approximately 5.7 x 3.9 cm previously 8.4 x 5.6 cm. Increased fluid along the posterior aspect of the scrotum without peripheral enhancement. Subcutaneous soft tissue edema in the scrotum elsewhere is similar. Otherwise, postsurgical changes status post partial penectomy appear stable ASSESSMENT & PLAN Melodie Medrano Jr. is a 58 y.o. male with PMH of DM2, HTN, HLD, melanoma, penile cancer s/p resection including inguinofemoral lymphoidectomy w drain placement 03/05/24 c/b bilateral inguinal collections L>R, drain placement w cultures growing viridans Strep, Pseudomonas putida, Enterococcus faecalis, Staph epi, and Mucor (only from the L drain). Was sent home on cipro, amox/clav, and isavuconazole (opted not to use posa due to interaction with xarelto). Unfortunately he was found to have a high ADEOLA to isavuconazole so he had to be started on posa instead 04/22 his AC was changed from xaralto to eliquis w EOT for the antibx of 05/25 and for posa till 06/04 Polymicrobial inguinal abscesses On most recent CT R ing collection has dec from 5x1.8 to 4.2x1.4 L ing fluid is 5.7 x 3.9 cm previously 8.4 x 5.6 cm Currently on 750mg cipro BID augmentin 1 q 12 and posa 300 q 24 AC changed from xaralto to eliquis (2.5mg BID) while on posa Posa troughs were not obtained, he hasn't taken posa as of this am, will obtain today (though may not be accurate, only troughs can be ordered so will order to get an idea of the levels) D/w pharmacy, can be restarted on FULL dose anticoagulation 7 days after finishing posa therapy, no contra indication to changing back to xarelto either at that point. Orders Placed This Encounter POSACONAZOLE, TROUGH (PRE DRUG LEVEL) Posaconazole [address] per tablet Eliquis 2.5 MG tablet Requested Prescriptions Signed Prescriptions Disp Refills Posaconazole [address] per tablet 48 tablet 0 Sig: Take 3 tablets by mouth every 24 hours for 16 days. Eliquis 2.5 MG tablet 32 tablet 0 Sig: Take 1 tablet by mouth every 12 hours for 16 days. Return if symptoms worsen or fail to improve. Plan of care was discussed with attending physician, Dr Dickens. Isa Mao ([place]ilo) Infectious Diseases fellow pgy 5 the patient verified name and Blue Tube: 0 Lavender Tube: 0 Gold Tube: 0 Mint Tube: 0 Misc Tube: 0 (IF) Venipuncture performed unsuccessfully Number of attempts: 2 Site of unsuccessful attempt number 1: Right antecubital with with 21G Butterfly Needle Site of unsuccessful attempt number 2: Left antecubital with with 21G Straight Needle Excessive Bleeding or Bruising at draw site: No Patient tolerated well. Another nurse/medical office asst was brought in to attempt: Yes Was the patient provided a list of [facility] lab locations to have labs drawn at another time No. Provider notified of unsuccessful draw attempt? No I saw and independently examined the patient on 05/20/2024. I agree with the history, examination, and medical decision making as noted by Dr. Mao. Pt with b/l inguinal abscesses after penectomy and lymphoidectomy. Polymicrobial with mucor. Had b/l drains, both are now out. Last imaging 05/11 w/ both collections smaller but still present. Initially on amox/clav + cipro + isavu, switched to posa due to bayron ADEOLA of 8. No posa trough done. Had to switch from rivaroxaban to 2.5mg ID of apixaban d ue to DDI with posa. He is doing great, having some nausea from abx but thats it. Discussed plan to finish abx as previously prescribed w/ posa course extending past abx course due to questionable isavu activity. Needs a posa level to confirm reasonable levels - we will get a random today. When he finishes posaconazole he can switch from low dose apixaban back to rivaroxaban 7d after stopping (per d/w ID PharmD Blessing Shah. Please message via [employer] secure chat or page with any questions or concerns. Clement Dickens DO County Extension Agent Division of Infectious Disease documented in this encounter [facility] 05-19-2024 Miscellaneous Notes Addended by: CLEMENT DICKENS on: 05/20/2024 08:36 AM Modules accepted: Level of Service documented in this encounter [facility] 05-19-2024 Note Addended by: CLEMENT KILGORE on: 05/20/2024 08:36 AM Modules accepted: Level of Service [facility] 05-08-2024 History of Present illness Narrative Images from the original note were not included. HPI Melodie Medrano Jr. is a 58 y.o. 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 Patient first presented to local tobacco sizer in January 2021 with an itchy scaly lesion on the undersurface of his penis. On 02/09/21 he underwent a shave biopsy for well-differentiated squamous cell carcinoma. That was then follow up with a MOHS procedure in 03/24/2021. In April of 2023 he noted a recurrent lesion and had another shave biopsy on 05/10/23 that noted pathology consistent with squamous cell carcinoma in situ that extended into the deep margin. On 06/28/23 the underwent another excision of invasive well-differentiated squamous cell carcinoma, -SM, pT1 NxMx. Patent referred by Dr. Kylee Cantor local medical oncologist. pT3 penile cancer s/p partial penectomy and 03/06/24 b/l RAIL. Admitted 03/16 for IR drain on 03/20 of right groin/thigh collection. Admitted 04/09 for IR drain on 04/10 of left inguinal fluid collection and discharged home on oral augmentin and cipro x 10 day course. 04/14/24 for ROSA MARIA culture +mucor requiring IV antifungal treatment He was hospitalization from 04/20/24 to 04/22/24 for left inguinal drain malfunction, nausea and vomiting, poor PO intake, KEYONNA. ID consulted for Abx, resultant culture data with high ADEOLA to prior azole, transitioned to posa and transitioned to eliquis due to med-med interaction with xeralto, will continue Cipro and Augmentin for 6 weeks, close follow up with ID. KEYONNA has improved since admission with fluid resuscitation. 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 Past Surgical History He has a past surgical history that includes acl reconstruction; foot surgery (Bilateral); vasectomy; back surgery; other surgical (Right); amputation penis partial (N/A, 01/22/2024); lymphadenectomy inguinofemoral robotic (Bilateral, 03/05/2024); drainage soft tissue percutaneous w/ image guidance (N/A, 03/20/2024); drainage soft tissue percutaneous w/ image guidance (Left, 04/10/2024); and change percutaneous tube/drainage catheter w/ s&i (Left, 04/22/2024). Medications He has a current medication list which includes the following prescription(s): amlodipine, amoxicillin-clavulanate, vitamin d, ciprofloxacin, freestyle rhonda 3 sensor, CUSTOM MEDICATION, cyanocobalamin, medical compression stockings, eliquis, novolog flexpen, pen needles, metformin-xr, metoprolol succinate, omega-3 acid ethyl esters, posaconazole, prochlorperazine, rosuvastatin, tamsulosin hcl, turmeric, and acetaminophen. Allergies He has No Known Allergies. Social History He reports that he has quit smoking. His smoking use included cigarettes. He has quit using smokeless tobacco. His smokeless tobacco use included chew. He reports current alcohol use of about 4.0 standard drinks of alcohol per week. He reports that he does not use drugs. Family History He family history includes Aneurysm in his father; Cancer- Other in his father; Lung Cancer in his maternal grandmother. Review of Systems Constitutional: No fevers or chills Skin: Negative for rash Endocrine: No heat/cold intolerance Cardiovascular: Negative for chest pain or dyspnea on exertion Respiratory: Negative for shortness of breath or wheezing Gastrointestinal: No constipation, nausea or vomiting Genitourinary: As in HPI Musculoskeletal: No new joint pain, + chronic foot pain Neurological: Negative for frequent headaches or dizziness Lymph/Heme: Negative for leg swelling or calf pain. Diagnostic Tests None currently Lab Results Component Value Date WBC 3.70 (L) 04/22/2024 HGB 9.1 (L) 04/22/2024 HCT 27.0 (L) 04/22/2024 PLATELET 119 (L) 04/22/2024 MCV 86.3 04/22/2024 Lab Results Component Value Date SODIUM 138 04/22/2024 POTASSIUM 4.1 04/22/2024 CHLORIDE 109 (H) 04/22/2024 CO2 20 (L) 04/22/2024 BUN 34 (H) 04/22/2024 CREATSERUM 2.24 (H) 04/22/2024 Lab Results Component Value Date LEUKOCESTUR Negative 03/16/2024 NITRITE Negative 01/29/2024 PROTEIN >=300 mg/dL (A) 01/29/2024 UPH 5.5 03/16/2024 BLOOD Large (A) 01/29/2024 SPECIFICGRAV 1.010 01/29/2024 KETONES Negative 01/29/2024 GLUCOSE 135 (H) 04/22/[address] ABD/PLV - today pending final read CT ABDOMEN/PELVIS WITH CONTRAST, 11/29/2023 IMPRESSION: 1. Left inguinal lymph node with enhancing nodule in its cortex, does not meet criteria for lymphadenopathy, however raises some concern. Consider targeted ultrasound. No intra-abdominal/pelvic lymphadenopathy by size criteria. 2. Hepatic steatosis. No suspicious liver lesion. 3. Colonic diverticulosis without evidence for diverticulitis. 4. Mild prostatomegaly. Assessment Melodie Medrano Jr. is a 58 y.o. 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 Patient s/p partial penectomy 01/22/24 Interval History He is doing well. He is back at work. His drains put out 70-100cc/day ROS Complete review of systems was conducted with pertinent positives and negatives detailed above. PE Constitutional: No apparent distress HEENT: Conjunctivae normal no visible neck nodes or pathology Cardiovascular: Looks well perfused Pulmonary/Chest: Respirations are even and non-labored Abdominal: Without distension Neurological: Alert and oriented, normal posturet Psych: Mood and affect within normal limits Extremities: Movement of all extremities, no cyanosis Skin: No relevant abnormalities in visualized areas No cellulitis or leg swelling. Drains with serous fluid A&P We discussed that I usually wait for <30cc/day for 3 consecutive tdays prior to drain removal. He is agreeable. To remove the drain on right, one would remove suction from the ROSA MARIA bulb, cut suture, and pull. To remove drain on left, one would cut below the white hub to release the [place] loop and pull. Both should come out easily come time. If he meets criteria he may look into getting this done locally. I said this would be reasonable otherwise we would be happy to see him back. Separately we discussed cancer prognosis which is favorable given pN0 status despite pT3 primary. Once he is recovered we will discuss the cancer surveillance plan. For now 6 week televisit with the hope that the drains can come out sooner Izaiah Maurer MD Certified Composites Technician of Urologic Surgery Division of Urologic Oncology [facility] documented in this encounter [facility] 04-22-2024 Plan of care note Pt with order for discharge. AVS reviewed with pt and his , educated on new medication and lab draw on 04/27. All questions answered. PIV removed per protocol. Pt walked to private vehicle for transport to home. Problem: Adult Inpatient Plan of Care Goal: Plan of Care Review 04/22/20241816 by Candace Clarke RN Outcome: Adequate for Discharge 04/22/2024938 by Candace Clarke RN Outcome: Progressing Goal: Patient-Specific Goal (Individualized) 04/22/20241816 by Candace Clarke RN Outcome: Adequate for Discharge 04/22/2024938 by Candace Clarke RN Outcome: Progressing Goal: Absence of Hospital-Acquired Illness or Injury 04/22/20241816 by Candace Clarke RN Outcome: Adequate for Discharge 04/22/2024938 by Candace Clarke RN Outcome: Progressing Goal: Optimal Comfort and Wellbeing 04/22/20241816 by Candace Clarke RN Outcome: Adequate for Discharge 04/22/2024938 by Candace Clarke RN Outcome: Progressing Goal: Readiness for Transition of Care 04/22/20241816 by Candace Clarke RN Outcome: Adequate for Discharge 04/22/2024938 by Candace Clarke RN Outcome: Progressing Problem: Infection Goal: Absence of Infection Signs and Symptoms 04/22/20241816 by Candace Clarke RN Outcome: Adequate for Discharge 04/22/2024938 by Candace Clarke RN Outcome: Progressing [facility] 04-22-2024 Miscellaneous Notes Pt with order for discharge. AVS reviewed with pt and his , educated on new medication and lab draw on 04/27. All questions answered. PIV removed per protocol. Pt walked to private vehicle for transport to home. Problem: Adult Inpatient Plan of Care Goal: Plan of Care Review 04/22/20241816 by Candace Clarke RN Outcome: Adequate for Discharge 04/22/2024938 by Candace Clarke RN Outcome: Progressing Goal: Patient-Specific Goal (Individualized) 04/22/20241816 by Candace Clarke RN Outcome: Adequate for Discharge 04/22/2024938 by Candace Clarke RN Outcome: Progressing Goal: Absence of Hospital-Acquired Illness or Injury 04/22/20241816 by Candace Clarke RN Outcome: Adequate for Discharge 04/22/2024938 by Candace Clarke RN Outcome: Progressing Goal: Optimal Comfort and Wellbeing 04/22/20241816 by Candace Clarke RN Outcome: Adequate for Discharge 04/22/2024938 by Candace Clarke RN Outcome: Progressing Goal: Readiness for Transition of Care 04/22/20241816 by Candace Clarke RN Outcome: Adequate for Discharge 04/22/2024938 by Candace Clarke RN Outcome: Progressing Problem: Infection Goal: Absence of Infection Signs and Symptoms 04/22/20241816 by Candace Clarke RN Outcome: Adequate for Discharge 04/22/2024938 by Candace Clarke RN Outcome: Progressing Interventional Radiology procedure completed of image guided left groin drain exchange with IR Attending Whitaker with sedation and local numbing agent. IPt to travel back to inpatient room for post procedure recovery. I did not see Mr. Medrano today. Susceptibilities for his Mucor returned: Amphotericin 0.06 Posaconazole 0.5 Isavuconazole 8 Given the high ADEOLA to isavuconazole, would no longer want to treat with this. Would switch to posaconazole instead. Unfortunately, there is an interaction with the patient's Xarelto, so his anticoagulation would need to be changed as discussed with the primary team. If switching to apixaban will need to reduce the apixaban dose by 50% and will need to remember to increase the dose back to normal once he stops posaconazole. I would emphasize that other azoles such as fluconazole, itraconazole, and voriconazole are not active against Mucor and their use would put the patient at risk for worsening of his infection and . Please see any review on treatment of Mucorales (for instance: https://www.ncbi.nlm.nih.gov/pmc/ articles/PUG0550494/). 04/22/24 1205 Referral Information Arrived From admitted as an inpatient Readmission Information Was patient readmitted within 30 Days? Yes Information Source Information Source patient ;spouse;review of medical record Outpatient Providers Outpatient Providers Updated In IHIS Yes Contact Information Crew Leader/Control Room Operator/SW Added to Care Team Yes This Telehealth Case Manager is Primary Crew Leader/Control Room Operator/SW Yes Crew Leader/Control Room Operator Name Jono Beti Crew Leader/Control Room Operator's Living Environment Lives With spouse Living Arrangement and Set Up house (2-story) Provides Primary Care For no one Primary Care Provided By spouse/significant other Support System Immediate family Able to Return to Prior Arrangements yes Functional Status Patient's Functional Status Prior To This Admission? Independent Concerns With Patient Being Able To Care For Themselves At Discharge? No Employment/Financial Employed? 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 Expected Discharge Disposition Home Anticipated Services at Discharge Outpatient clinical services (ie: lab draws, transfusions, injectables);Outpatient follow up Anticipated Changes Related to Illness none Current Discharge Risk chronically ill Transportation Available family or friend will provide Assessment/Concerns to be Addressed Concerns To Be Addressed denies needs/concerns at this time PCRM Initial Assessment Met with patient and spouse, Mendoza to complete the initial assessment. Explained role and function of PCRM in multidisciplinary team. Contact number provided for questions. Demographic information reviewed with patient & spouse and confirmed as correct. Reason for Admission: Patient is a 58 y.o. male of afib, DVT, HTN, HLD, T2DM, and penile cancer who was a admitted for c/o of left inguinal drain not draining and KEYONNA. Estimated length of stay: Depends on medical stability and clinical course of illness Advance directives Patient does not have Advanced Directives on File Lines/Drains/Tubes PIV to be removed prior to discharge per hospital policy 2 ROSA MARIA drains Initial PCR Discharge Planning Patient lives with spouse of 35 years in a 2-story house where the bedroom and bathroom is situated on the second level. Patient ambulates independently without the need for assistive device, no history of fall. Patient states he manages his drains at home and denies the need for HHC, he also has dressing supplies at home. Spouse will provide transport for discharge to home. Final plan will be determined closer to discharge, pending therapy and medical team recommendations. Patient/family verbalized understanding and agreement with the plan of care. Patient/family have no questions at this time. PCRM will continue to follow patient with multidisciplinary team for ongoing assessment of needs and for discharge planning. Medical team updated. Jono CALDERON RN, [facility] Pt updated on plan of care. Remains NPO. Drain exchange scheduled for 1520 today, INR drawn this morning. Mag replaced. Pt resting in bed, calling out appropriately for assistance, bed alarm off at this time. Spouse at bedside Problem: Adult Inpatient Plan of Care Goal: Plan of Care Review Outcome: Progressing Goal: Patient-Specific Goal (Individualized) Outcome: Progressing Goal: Absence of Hospital-Acquired Illness or Injury Outcome: Progressing Goal: Optimal Comfort and Wellbeing Outcome: Progressing Goal: Readiness for Transition of Care Outcome: Progressing Problem: Infection Goal: Absence of Infection Signs and Symptoms Outcome: Progressing INTERVENTIONAL RADIOLOGY PLAN OF CARE NOTE Patient Name: Melodie Medrano Jr. Date of : 1965 Age: 58 y.o. Sex: male HPI: see consult note dated 04/20/2024 58 y.o. male with hx of DM, HTN, HLD, DVT/PE on Xarelto, and melanoma s/p BL robotic assisted inguinofemoral lymphadenectomy (03/05/24), since has recurrent bilateral groin collections. IR placed bilateral drains, and the left groin ROSA MARIA has been leaking around the insertion site. IR consulted for left groin drain intervention. Assessment & Plan: Requested CT pelvis to assess collection. Imaging shows decrease in size of collection and potential for repositioning to aid in drainage. Further, notified by referring team that the left drain is cracked. Will plan for a left inguinal collection drain replace/reposition, to schedule as imaging suite availability permits. Please keep NPO at midnight prior to the procedure. Please keep Hgb 7.0 or greater Coag goals: INR < 2-3 and platelets > 20k No need to hold anticoagulation for low bleeding risk procedure, per guidelines. DM. Nga-procedural diabetes medication adjustments per protocol and accucheck pre-procedure. Please notify IR if the situation changes. Note: procedure subject to cancellation or re-scheduling should threshold labs not be met or patient found to be hemodynamically unstable at the time of the procedure. IR attending Dr. Cruz agrees with the above. Discussed with Dr. Finnegan from the referring team 04/21/2024 11:47 AM Thank you for allowing Interventional Radiology to participate in this patient's care. Jasmyne Borrero, CODING EDUCATOR-MIXER ATTENDANT; 04/21/2024, 11:47 AM Please IHIS message or page [phone] with questions. documented in this encounter [facility] 04-22-2024 Hospital course Narrative Discharge Summary Name: Melodie Medrano Jr. Age: 58 y.o. Birthday: 1965 Admit Date: 04/20/2024 2:17 PM Discharge Date: 04/22/2024 Admission Information Admitting Physician: Catalina Vyas MD Discharge Information Discharge Physician: Dr. Chapman Problem List Active Hospital Problems Diagnosis Acute kidney injury Resolved Hospital Problems No resolved problems to display. Brief Summary of Hospital Course for Discharge Summary: I recently had the opportunity to care for Melodie Medrano during their hospital stay at [facility]. As you may know Mr. Mitchell Luther is a 58 y.o. male of afib, DVT, HTN, HLD, T2DM, and penile cancer who was a admitted for c/o of left inguinal drain not draining and KEYONNA. The following describes their hospital course by problem list: ACUTE PROBLEMS KEYONNA - CR 3.94 in ED, baseline near 1.0 ; Improved to 2.24 with fluids - Nephrology c/s, suspect hypovolemia. Alternative etiology could be AIN from antibiotics or ATN although less likely - ID does not feel his antibiotics is contributing to renal dysfunction - PVR minimal and SRINATH negative for hydronephrosis. - Urine lytes obtained - Patient encourage to increase PO intake. Will have labs on 04/27 with his abx/OPAT plan. Result to be cc'd his infectious diease team. Will have JTOCC see him outpatient as well Left Inguinal drain malfunction Bilateral inguinal fluid collections - Admitted 03/16 for IR drain on 03/20 of right groin/thigh collection - Admitted 04/09 for IR drain on 04/10 of left inguinal collection - Admitted 04/12-04/13 for antifungals given Mucro sp on drain culture per ID and was discharged on Isavuconazole, Augmentin and Cipro for 6 weeks. EOT 05/25. - Pt reports left drain not draining and leaking around site - CT pelvis shows decreased size of bilateral inguinal collections - Urology following, appreciate recommendation - IR consulted, S/p left inguinal collection drain exchange - ID consulted, Susceptibilities for his Mucor returned. Given the high ADEOLA to isavuconazole, would no longer want to treat with this.Would switch to posaconazole instead. - [place] denied for posaconazole. Appeal submitted and still pending. Patient opted for home discharge today and agreed to pay out of pocket for posaconazole with a Xceive coupon deal at [employer] of $333 - Will need to obtain posaconazole trough level on 04/27 with his other labs. Result to be ccd to the ID team - Given interaction between posaconazole and patient's Xarelto; he was switched to dose reduced eliquis 2.5mg Q12H - Per ID continue cipro and Augmentin as previously recommended Penile cancer - follows with Dr. Maurer (urology) - s/p partial penectomy and 03/06/24 b/l RAIL. - in surveillance CHRONIC PROBLEMS T2DM - hold home metformin - SSI DVT/PE - incidental finding during previous admission on 04/09 - Given interaction between posaconazole and patient's Xarelto; he was switched to dose reduce eliquis of 2.5mg Q12H - Discontinue xarelto given the above HTN/HLD - Stop lisinopril given KEYONNA; re-evaluate outpatient when to restart pending continued improvement in KEYONNA - cont home amlodipine, metoprolol, rosuvastatin Complexity. Thrombocytopenia - Continue to monitor. Any conditions listed below are present on admission unless otherwise specified. Body mass index is 28.33 kg/m . Dispo: Discharge home. On discharge day, patient is breathing easy on RA and HD stable. Resume regular diet and activity. Follow up with ID, JTOCC, and primary urology team Summary of last selected lab results and date obtained: Lab Results Component Value Date WBC 3.70 (L) 04/22/2024 HGB 9.1 (L) 04/22/2024 HCT 27.0 (L) 04/22/2024 PLATELET 119 (L) 04/22/2024 MCV 86.3 04/22/2024 Lab Results Component Value Date SODIUM 138 04/22/2024 POTASSIUM 4.1 04/22/2024 CHLORIDE 109 (H) 04/22/2024 CO2 20 (L) 04/22/2024 BUN 34 (H) 04/22/2024 CREATSERUM 2.24 (H) 04/22/2024 GLUCOSE 135 (H) 04/22/2024 Lab Results Component Value Date ALT 12 04/22/2024 AST 14 04/22/2024 ALKPHOS 47 04/22/2024 BILITOTAL 0.2 04/22/2024 BILIDIRECT <0.1 04/22/2024 BP 126/74 Pulse 68 Temp 97.8 F (36.6 C) (Oral) Resp 18 Ht 1.956 m (6' 5) Wt 108.4 kg (238 lb 14.4 oz) SpO2 93% BMI 28.33 kg/m Smoking Status Former General: A&O to self, time, place, and situation. NAD. HEENT: EOMI, anicteric sclerae, conjunctivae & lids symmetrical. No signs of inflammation. Neck no rigidity. Not MORONGO. MMM, no erythema, exudates, or lesions. Dentition intact. Respiratory: Clear to auscultation bilaterally, no crackles/rhonchi/wheezes, no increased WOB. Cardiovascular: RRR, no murmurs, rubs, clicks or gallops, no peripheral edema, cap refill brisk. Abdomen: Normoactive BS. Abdomen soft, nontender, nondistended. No palpable masses. Genitourinary: Right drain with serous fluid, left drain with no output from drain but fluid leaking around the drain from a crack near the skin Neurologic: CN II-XII intact. No focal deficits. Speech clear and coherent. Follows commands. Skin: Color, texture, and turgor normal. No rashes or lesions. Psychosocial: Affect appropriate Lines/drains/airway with placement date: - Right inguinal collection drain (placed on 03/20 and exchanged on 04/22) - Left inguinal collection drain (placed on 04/10) Discharge Orders AMB REFERRAL TO ONCOLOGY DISCHARGE FOLLOW-UP CLINIC Current Outpatient Meds: Medication List for when you go home START taking these medications Morning Afternoon Evening Bedtime As Needed CUSTOM MEDICATION Please Draw a Posaconzole, Trough (Pre drug level) on 04/27/2024 Fax results to [phone], attention (ID Attending): Dr. Adryan Velazquez and (ID Fellow): Dr. Isa Chery 2.5 MG TABS Take 1 tablet by mouth every 12 hours. For diagnoses: 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, unspecified laterality, Atrial fibrillation, unspecified type Generic drug: apixaban Posaconazole [address] per tablet Take 3 tablets by mouth every 24 hours. Commonly known as: Noxafil Start taking on: April 23, 2024 CONTINUE taking these medications Morning Afternoon Evening Bedtime As Needed Acetaminophen 325 MG tablet Take 2 tablets by mouth every 4 hours as needed for Mild Pain for up to 10 days. Commonly known as: TYLENOL amLODIPine 5 MG TABS Take 1 tablet by mouth daily. Commonly known as: NORVASC Last time this was given: 5 mg on April 22, 2024 9:06 AM Amoxicillin-clavulanate 875-125 MG TABS Take 1 tablet by mouth every 12 hours. Commonly known as: AUGMENTIN Last time this was given: 1 tablet on April 22, 2024 9:06 AM BD Pen Needle Tere U/F 32G X 4 MM MISC Use new needle for each insulin injection. Generic drug: Insulin Pen Needle Ciprofloxacin 750 MG TABS Take 1 tablet by mouth 2 times daily. Commonly known as: CIPRO Last time this was given: 750 mg on April 22, 2024 9:06 AM cyanocobalamin 100 MCG TABS Take 1 tablet by mouth daily. Commonly known as: VITAMIN B12 FreeStyle Rhonda 3 Sensor MISC Apply 1 Each topically every 14 days. Medical Compression Stockings MISC 1 Each by Unknown route daily. metFORMIN-XR 500 MG tab XL Take 1 tablet by mouth 2 times daily. Commonly known as: GLUCOPHAGE-XR Metoprolol succinate 50 MG tablet XL Take 1 tablet by mouth daily. Commonly known as: TOPROL-XL Last time this was given: 50 mg on April 22, 2024 9:06 AM NovoLOG FlexPen 100 UNIT/ML SOPN injection Inject under the skin before meals & at bedtime as directed. Please administer 4 units for small meals and 6 units for large meals. Max daily dose of 18 units. Generic drug: insulin aspart omega-3 acid ethyl esters 1 g CAPS Take 2 capsules by mouth 2 times daily. Commonly known as: LOVAZA Ondansetron 4 MG TABS Take 1 tablet by mouth every 8 hours as needed for Nausea / Vomiting. Commonly known as: ZOFRAN Last time this was given: Ask your nurse or doctor QC TUMERIC COMPLEX PO Take by mouth. Rosuvastatin 10 MG TABS Take 1 tablet by mouth daily. Commonly known as: CRESTOR Last time this was given: 10 mg on April 22, 2024 9:06 AM Tamsulosin HCl 0.4 MG CAPS Take 1 capsule by mouth daily Commonly known as: FLOMAX Last time this was given: 0.4 mg on April 22, 2024 9:06 AM Vitamin D 25 MCG (1000 UT) TABS Take 1 tablet by mouth daily. STOP taking these medications Cresemba 186 MG CAPS Generic drug: Isavuconazonium lisinopril 30 MG TABS Commonly known as: PRINIVIL Xarelto 20 MG tablet Generic drug: Rivaroxaban Follow-up: No follow-up provider specified. Upcoming Appointments (up to five)-Some appointments for [facility] outpatient clinics or diagnostic testing locations are not displayed below Provider Department Dept Phone 05/08/2024 1:15 PM Izaiah Maurer Division of Urological Surgery at [facility] Care Arrive at: Arrive to First Floor Registration [phone] 05/11/2024 3:[address], [facility] Imaging and Mammography Outpatient Care [place] Arrive at: Arrive to [address] Registration Desk [phone] 05/19/2024 9:00 AM INFECTIOUS DISEASE FELLOW 6, [facility] Infectious Diseases Care [facility] Outpatient Care [phone] Associated attestation - Melodie Chapman MD - 04/22/2024 7:53 PM EDT Attending addendum: I have personally seen and examined the patient, today. I have discussed the plan of care with Suzie VALENZUELA and we have formulated the medical decision making, as above. For today s visit, I reviewed the nursing flowchart, list of medications and pertinent laboratory and diagnostic test results. I reviewed, edited as indicated, and agree with the above progress note as it reflects the details of my interview, exam, and medical decision making. I have performed a substantive portion of the encounter myself. 58M hx of afib, DVT, and penile cancer s/p partial penectomy c/b post operative bilateral inguinal fluid collections with polymicrobial culture growth. Here with an progressive nausea and vomiting, poor PO intake, KEYONNA and left inguinal drain malfunction. On today s exam he is conversational and oriented, has clear lungs, no edema, soft abdomen, there are two inguinal drains, the right has serus fluid drainage. IR consulted for drain exchange 04/22, ID consulted for Abx, resultant culture data with high ADEOLA to prior azole, transitioned to posa and transitioned to eliquis due to med-med interaction with issacto, will continue Cipro and Augmentin for 6 weeks, close follow up with ID. KEYONNA has improved since admission with fluid resuscitation- will need followed for resolution, increased PO intake and resolution of nausea and vomiting since admission. He will discharge home with follow up with JTOC and urology. Rest of care per PA note. Melodie Chapman MD documented in this encounter [facility] 04-22-2024 Nurse Note Interventional Radiology procedure completed of image guided left groin drain exchange with IR Attending Whitaker with sedation and local numbing agent. IPt to travel back to inpatient room for post procedure recovery. [facility] 04-22-2024 History of Present illness Narrative 04/22/24 1400 Referral Information Arrived From admitted as an inpatient Final Discharge Planning Discharge Disposition Home Services at Discharge Outpatient clinical services (ie: lab draws, transfusions, injectables) CM/SW AVS Portion Completed Yes Plan Plan Patient is medically ready to discharge to home per medical team Patient/Family In Agreement With Plan yes Transport Request Mode of Transfer [facility] Inpatient PCRM Discharge Note Patient discussed in medical rounds for discharge to patient and spouse. PCRM met with the patient and spouse to discuss final discharge plan. Melodie Medrano Jr. is a 58 y.o. male of afib, DVT, HTN, HLD, T2DM, and penile cancer who was a admitted for c/o of left inguinal drain not draining and KEYONNA. Services for Discharge Outpatient follow-up appointments Consults with Final Discharge Recommendations Reviewed Lines/Tubes/Drains/Wounds/Supplie s PIV to be removed prior to discharge per hospital policy 2 ROSA MARIA drains Medications No barriers anticipated in obtaining discharge medications. No prior authorizations anticipated. Reconciliation of medications to be completed by the medical team. EDMUNDO sent to covermymeds for Posaconazole 100MG dr lewis, Cannon: [id number]), EDMUNDO , denied. Goodrx coupon deal at [facility] is like $333 which is very costly for patient. Appeals sent to Prescription Claim Appeals 109 - [facility] [employer] fax# . Appeals status: pending for review. This PCRM called their local [facility] RX, med is available and pt agreeable to pay [id number] with goodRX coupon $333.96. Print out provided to pt. Eliquis $0.0 copay per [facility] Durable Medical Equipment Denies any new DME needs Choice Was Patient Choice Provided: N/A Transportation Transportation will be provided by spouse via private transport. Education Discharge education provided by the medical team and updated in the After Visit Summary. Follow Up(s) Any follow up requested by the medical team arranged. Appointments in the After Visit Summary. Future Appointments Date Time Provider Department Center 05/08/2024 1:15 PM MD ROE Kerr JOROXY 05/11/2024 3:30 PM [facility], [facility] ILCCTD CPLEWIS 05/19/2024 9:00 AM INFECTIOUS DISEASE FELLOW 6, [facility] Blood work, MARINA will provide the printed script so pt can go to their local laboratory. ACO Patient: No Was Ambulatory PCRM added to the Care Team? Yes- Handoff criteria met/ACO Patient Was a handoff made to an Ambulatory PCRM? Andres Baird Referral completed and sent to Andres Baird, phone number [phone]. The PCRM has updated the patient's nurse Candace regarding the final discharge plan. Risk of Readmission: 16.5 Category Reference: Low: 0% - 5% Medium - Low: 5.1% - 10% Medium - High: 10.1% - 16% High: 16.1% - 100% Readmission Risk Interventions Documented: Yes No other discharge needs have been identified at this time. This plan was developed in collaboration with the patient and caregiver/preferred decision maker. Patient and family are in agreement with final discharge plan. Please refer to AVS and medical record for additional information. Patient instructed to call with questions. PCRM will continue to follow with medical team for any additional discharge planning needs. Jono CALDERON, RN, PCRM If any changes to this individualized plan of care during evening and weekend hours and assistance is needed, please page the director medical economics PCRM at [phone]. Outpatient ORAL Antibiotic Therapy (OOAT): For patients who will be discharged on parenteral (IV) antibiotic therapy, please utilize the OPAT discharge orderset. For patients who are on oral antibiotic therapy, utilization of this orderset is not necessary. Diagnosis: Skin and Soft Tissue Infection (SSTI) Post-operative pelvic fluid collections with polymicrobial culture growth including Mucor from L drain - Grew from old drain in the L inguinal area, this drain isnt really having output since it was put in per pt. He is afebrile and HDS. Old drain has been removed since this AM. IR obtained cultures while putting new drain in the L groin, no growth on bacterial culture and fungal cultures are pending. Polymicrobial drain cx: taken from old drains PsA, E faecalis, and Strept viridans Antibiotic(s) with dose: The dosing of these antibiotics is based on today's PK/PD calculations and is subject to change. Please evaluate the patient's medication list and carefully verify their dosing, and infusion rate prior to discharge. Do not hesitate to call the on-call ID Team with any questions. Estimated Creatinine Clearance: 49 mL/min (A) (by C-G formula based on SCr of 2.24 mg/dL (H)). Oral Antibiotics: Ciprofloxacin 750 mg PO every 12 hours Amoxicillin-Clavulanate 875-125 mg PO every 12 hours Posaconazole 300 mg PO every 24 hours Duration of Therapy: Total Duration of therapy: 6 weeks Other: Ciprofloxacin - Start Date: 04/11/24; Stop Date: 05/25/24 (tentative) Other: Amoxicillin-Clavulanate - Start Date: 04/11/24; Stop Date: 05/25/24 (tentative) Other: Isavuconazole - Start Date: 04/23/24; Stop Date: 06/04/24 (tentative) Does Patient Need Oral Antibiotic Therapy at the End of Parenteral Therapy: N/A OPAT ID Providers: (ID Attending): Dr. Adryan Velazquez (ID Fellow): Dr. Isa Mao Labs: Please have the Home Care Company or Extended Care Facility obtain the following labs while on the above antibiotics and fax results to [phone], attention (ID Attending): Dr. Adryan Velazquez and (ID Fellow): Dr. Isa Mao - Chem-6 (Including serum creatinine) without Glucose every Saturday - CBC with differential every Saturday - Hepatic Function Panel every Saturday Imaging: Yes: Prior to discharge, the patient should have CT-A/P with IV contrast to be scheduled on 05/11/24 (prior to ID Appointment on 05/19/2024) Follow-up: Yes - Patient should follow-up in the ID Clinic (Please ensure patient is enrolled in [place] prior to discharge) If the patient is being [facility] we will defer ID Care to the Infectious Disease Providers at the [facility] facility. Please instruct the facility that if the patient requires ID Follow-up after discharge, then they should call our office to arrange for an appointment. Central Access: Can Central Access be removed at the end of therapy: NA Additional notes: Final duration of antimicrobial therapy to be determined based on clinical and radiographic follow-up Myrna Greene MD PA sent to [facility] for Posaconazole 100MG dr lewis, Cannon: [id number]), PA , awaiting response. Miri $0.0 copay per [facility] CALDERON, RN, PCR Physical Therapy Screen Note 04/22/2024 PT Therapy Completed: Screen Pt very politely declines need for inpatient therapy services. States he is getting up and mobilizing well without difficulty. Spouse in room confirms, reports pt has ambulated to and from [facility] on first floor of building without issue. PT will sign off on current orders as no skilled intervention is indicated at this time. Rae Chaves PT Time In: 0845 Time Out: 0847 Total Visit Time: 2 minutes Total Treatment Time (skilled, billable minutes): 0 minutes Occupational Therapy Screen Note 04/22/2024 OT Therapy Completed: Screen OT consult received and appreciated. Pt supine in bed upon arrival to room. Per pt, he was independent prior to admission. Pt reports independence in ADL/IADL, functional mobility at baseline. Pt reports he feels he is at his baseline at this time in all ADL/IADL and functional mobility tasks. Pt denies need for OT services at this time. Educated pt on OT role. Pt voiced understanding. No OT services warranted at this time. Will cancel OT orders at this time. Please re-consult if pt has significant change in status or requests therapy to return. Educated pt on this plan and they voiced understanding. Karla Giron OT Time In: 842 Time Out: 0845 Total Visit Time: 2 minutes Total Treatment Time (skilled, billable minutes): 0 minutes CANCER MEDICINE INPATIENT PROGRESS NOTE TODAY'S DATE: 04/21/2024 ADMIT DATE: 04/20/2024 2:17 PM REASON FOR ADMISSION: Inguinal drain malfunction and KEYONNA Primary Oncologist: Sydney (urology) ASSESSMENT AND PLAN Melodie Medrano Jr. is a 58 y.o. male of afib, DVT, HTN, HLD, T2DM, and penile cancer who was a admitted for c/o of left inguinal drain not draining and KEYONNA. ACUTE PROBLEMS KEYONNA - CR 3.94 in ED, baseline near 1.0 ; Improved to 3.1 - PVR minimal and SRINATH negative for hydronephrosis. - Urine lytes obtained - S/p fluid bolus and now on MIVF - Nephrology c/s - ID does not feel his antibiotics is contributing to renal dysfunction - Daily chem Left Inguinal drain malfunction Bilateral inguinal fluid collections - Admitted 03/16 for IR drain on 03/20 of right groin/thigh collection - Admitted 04/09 for IR drain on 04/10 of left inguinal collection - Admitted 04/12-04/13 for antifungals given Mucro sp on drain culture per ID and was discharged on Isavuconazole, Augmentin and Cipro for 6 weeks. EOT 05/25. - Pt reports left drain not draining and leaking around site - CT pelvis shows decreased size of bilateral inguinal collections - Urology following, appreciate recommendation - IR consulted, planned for left inguinal collection drain replace/reposition. NPO MN - ID consult, continue abx as noted and refer to OPAT note from 04/13 for further details. Renal adjust meds as needed. If dosing on discharge will be changed please reach out for a new OPAT note. Penile cancer - follows with Dr. Maurer (urology) - s/p partial penectomy and 03/06/24 b/l RAIL. - in surveillance CHRONIC PROBLEMS T2DM - hold home metformin - SSI DVT/PE - incidental finding during previous admission on 04/09 - hold home xarelto and start heparin for any inpatient procedures HTN/HLD - hold home lisinopril - cont home amlodipine, metoprolol, rosuvastatin Complexity. Thrombocytopenia - Continue to monitor. Any conditions listed below are present on admission unless otherwise specified. . Body mass index is 28.33 kg/m . DVT prophylaxis: Heparin gtt Diet: DIET REGULAR Continuous Infusions: heparin 20 Units/kg/hr (04/21/24 1451) Sodium chloride 0.9% 125 mL/hr at 04/21/24 1210 Code Status: Full Code Serious Illness Conversation: None Disposition: The patient will require continued hospitalization for KEYONNA and Left Inguinal drain malfunction. They are expected to discharge to home with home health care. Today they are expected to be medically ready for discharge in 2-3 days Follow-ups made: Urology (05/08), CT A/P scan (05/11) and ID (05/19) Follow-ups needed: TBD SUBJECTIVE Patient seen and examined at bedside with spouse. Continues to have no output from left drain and leakage at insertion site. No other complaints. Plan of care discussed and all questions answered.Remainder of ROS queried and negative. OBJECTIVE Temp: [97.5 F (36.4 C)-98.3 F (36.8 C)] 97.5 F (36.4 C) Pulse (Heart Rate): [58-96] 70 Resp Rate: [15-18] 18 BP: (122-144)/(67-79) 133/76 O2 Sat (%): [95 %-98 %] 97 % Weight: [108.4 kg (238 lb 14.4 oz)] 108.4 kg (238 lb 14.4 oz) General: A&O to self, time, place, and situation. NAD. HEENT: EOMI, anicteric sclerae, conjunctivae & lids symmetrical. No signs of inflammation. Neck no rigidity. Not MORONGO. MMM, no erythema, exudates, or lesions. Dentition intact. Respiratory: Clear to auscultation bilaterally, no crackles/rhonchi/wheezes, no increased WOB. Cardiovascular: RRR, no murmurs, rubs, clicks or gallops, no peripheral edema, cap refill brisk. Abdomen: Normoactive BS. Abdomen soft, nontender, nondistended. No palpable masses. Genitourinary: Right drain with serous fluid, left drain with no output from drain but fluid leaking around the drain from a crack near the skin Neurologic: CN II-XII intact. No focal deficits. Speech clear and coherent. Follows commands. Skin: Color, texture, and turgor normal. No rashes or lesions. Psychosocial: Affect appropriate PIV with no evidence of erythema, drainage, or tenderness. Dressing is clean, dry, and intact. Lines/drains/airway with placement date: - Right inguinal collection drain (placed on 03/20) - Left inguinal collection drain (placed on 04/10) Plan of care reviewed with the attending, : in agreement. Suzie Martin PA-C Cancer Medicine A Virtual Pager The provider may be reached from 7a-7p at pager listed on QGenda. After these hours please page the pants busheler or moonlighter. Associated attestation - Neo Finnegan MD - 04/22/2024 7:42 AM EDT I saw and evaluated Melodie Medrano . on 04/21/24. The case was discussed with the Resident/Fellow/MARINA. I personally reviewed the chief complaint, history of presenting illness, past medical/surgical history, family history, social history, allergies, review of systems and medications. I personally performed physical examination and reviewed the relevant imaging and laboratory data. I agree with the documented findings, assessment and plan with the following comments/corrections/additions. I personally performed all aspects of the medical decision making for this encounter. Discussed the diagnosis and plan of care with the patient and/or family who are in agreement. Interval History: Admitted overnight due to L inguinal drain not functioning properly. Also noted to have worsening KEYONNA. Urology consulted, who recommended IR consult for his non-functioning drain, who recommended CT pelvis. Today, patient reports ongoing symptoms. Discussed with IR, who is planning to replace L inguinal drain on 04/22. Nephrology consulted for KEYONNA they feel this is likely pre-renal although nephrotoxic medications may be contributing. Continue IV fluids. ID consulted for assistance with management of pelvic infection. They recommend continuing cipro, Augmentin, and Isavuconazole (EOT: 05/25). CBC and Chem 7 labs reviewed. Exam: General: A&O to self, time, place, and situation. NAD. HEENT: EOMI, anicteric sclerae, conjunctivae & lids symmetrical. No signs of inflammation. Neck no rigidity. Not MORONGO. MMM, no erythema, exudates, or lesions. Dentition intact. Respiratory: Clear to auscultation bilaterally, no crackles/rhonchi/wheezes, no increased WOB. Cardiovascular: RRR, no murmurs, rubs, clicks or gallops, no peripheral edema, cap refill brisk. Abdomen: Normoactive BS. Abdomen soft, nontender, nondistended. No palpable masses. Genitourinary: Right drain with serous fluid, left drain with no output from drain but fluid leaking around the drain from a crack near the skin Neurologic: CN II-XII intact. No focal deficits. Speech clear and coherent. Follows commands. Skin: Color, texture, and turgor normal. No rashes or lesions. Psychosocial: Affect appropriate A/P: Melodie Medrano Jr. is a 58 y.o. male of afib, DVT, HTN, HLD, T2DM, and penile cancer who was a admitted for c/o of left inguinal drain not draining and KEYONNA. ACUTE PROBLEMS KEYONNA- ongoing Likely pre-renal Nephrotoxic medications may also be contributing - CR 3.94 in ED, baseline near 1.0 ; Improved to 3.1 - S/p fluid bolus and now on MIVF - Nephrology c/s, they feel this is likely pre-renal although nephrotoxic medications may be contributing. Continue IV fluids. Left Inguinal drain malfunction- ongoing Bilateral inguinal fluid collections - Pt reports left drain not draining and leaking around site - CT pelvis shows decreased size of bilateral inguinal collections - Urology following, appreciate recommendation - IR consulted, planned for left inguinal collection drain replace/reposition on 04/22 - ID consulted, continue abx as noted and refer to OPAT note from 04/13 for further details. Renally adjust meds as needed. Please see MARINA note below for further details. Neo Finnegan MD Clinical [place] Extension Agent Division of [facility] Medicine Pager [phone] PCRM attempted to meet with patient for initial assessment, however patient is not available at this time due to another member of the medical team is in the room with patient at 12:57 pm, and at 1:22 pm. At 1:43 pm, patient is not in the room. PCRM will continue to attempt as able. PCRM will continue to follow with multidisciplinary team for ongoing assessment of needs and discharge planning. Jono CALDERON, RN, PCRM Summary: PSA attempt SW attempted to meet with patient to complete psychosocial assessment; however, patient was found to be not in the room at this time. SW will revisit patient as able and remain available as needed. ELIZABETH Bender CMA [employer] Range Feeder Pager: #[phone] For Evening (4:30pm-8am) and Weekend SW needs please call [phone] or page [phone]. Urology Consult Service Progress Note Last 24 Hours Feeling okay AF HDS Drain on left still draining from cracked tube Cr 3.1 from3.94 PVR 30s and voiding okay No hydro on kidneys Neph and ID consult pending IR drain replacement pending Physical Exam Constitutional: NAD, WDWN HEENT: NCAT. Conjunctivae normal MMM Cardiovascular: Regular rate Pulmonary/Chest: Respirations are even and non-labored bilaterally Abdominal: Soft with no distension, tenderness, masses, guarding or CVA tenderness Neurological: A + O x 3, cranial nerves II-XII grossly intact. Extremities: KASH x 4, warm, no clubbing, no cyanosis Skin: [place], warm, dry with no rash Psychiatric: Normal mood and affect Genitourinary: s/p partial penectomy, stable exam, right drain with serous fluid, left drain with no output from drain but fluid leaking around the drain from a crack near the skin Neither drain is erythematous and no fluctuance palpable Laboratory Studies and Objective Data Temp: [97.5 F (36.4 C)-98.3 F (36.8 C)] 97.5 F (36.4 C) Pulse (Heart Rate): [64-96] 64 Resp Rate: [15-20] 16 BP: (105-144)/(65-79) 122/73 O2 Sat (%): [95 %-99 %] 95 % Weight: [108.4 kg (238 lb 14.4 oz)] 108.4 kg (238 lb 14.4 oz) Oxygen Therapy O2 Sat (%): 95 % O2 Device: room air Flow (L/min): 2 Oxygen Concentration (%): 97 24 hour outputs: Intake/Output Summary (Last 24 hours) at 04/21/2024 1047 Last data filed at 04/21/2024 0853 Gross per 24 hour Intake 1074.85 ml Output 315 ml Net 759.85 ml WBC/Hgb/Hct/Plts: 4.18/10.1/29.2/139 (04/21 0547) Na/K+/Phos/Mg/Ca: 139/4.2/4.4/1.9/8.6 (04/21 547) Bun/Creat/Cl/CO2/Glucose: 46/3.10/109/20/143 (04/21 547-04/21 848) Assessment/Plan Melodie Medrano Jr. is a 58 y.o. male with a relevant history of pT3 penile cancer s/p penectomy and bilateral inguinal LN dissection 02/2024 s/p multiple inguinal fluid collections s/o bilateral drains and infections on broad spectrum antibiotics and antifungal therapy per ID through 05/25/24 (cipro/augmentin/isavuconazole). Patient presented 04/20 for lack of drainage from left drain with serous drainage around the drain saturating his dressings. Also noted to have notable KEYONNA with Cr to 3.94 on 04/20 from a baseline of near 1.0. Improving renal function to 3.1 creatinine 04/21. PVR minimal and SRINATH negative for hydronephrosis. There is a crack in the left drain. - Agree with IR consult for left drain exchange. The right seems to be draining well. - Please consult nephrology for KEYONNA - Recommend ID consult given complex infectious history in the setting of KEYONNA - Appreciate cancer medicine admission Patient seen on rounds and will discuss with attending. Richar Oneal MD Urology Resident Please page the Urology consult pager with questions or concerns (Found in QGenda) [facility] --> Urology --> Consults [facility] --> Urology --> [facility] ALL URGENT ISSUES SHOULD BE PAGED TO THE ABOVE PAGER - Epic chat is not a reliable method of urgent communication with a surgical service at any time. - The person who wrote this note may be off service, post call, or otherwise unavailable. Department of Pharmacy Renal Documentation Note Patient: Melodie Medrano Room/Bed: 33458/A Assessment and Plan: The patient's serum creatinine has increased with a predicted decrease in creatinine clearance. The patient's most recent renal function markers include: Creatinine Date Value Ref Range Status 04/21/2024 3.10 (H) 0.70 - 1.30 mg/dL Final Estimated Creatinine Clearance: 36 mL/min (A) (by C-G formula based on SCr of 3.1 mg/dL (H)). I/O last 3 completed shifts: In: 1039.5 [I.V.:1000.3; IV Piggyback:39.2] Out: 315 [Urine:250; Other:65] Based on these values - The following adjustments have been made: Augmentin dose increased to 875/125mg. Cipro frequency increased to Q12H. I have modified the orders in IHIS to reflect the above plan. A pharmacist will continue to follow patient and recommend drug levels and dose changes as clinically appropriate. Please contact with any questions, Name: Charlie Bryant RPH Phone: [phone] Date/Time: 04/21/2024 8:42 AM Upon adm, this nurse explained the skin check policy to the pt; however, pt refused to let this nurse take pictures. Pt stated don't have any wounds. Pt's ambulates around independently. Moreno scale 21 on adm. Department of Pharmacy Renal Documentation Note Patient: Melodie Medrano Room[facility] Assessment and Plan: The patient's most recent renal function markers include: Weight: Wt Readings from Last 1 Encounters: 04/13/24 106.6 kg (235 lb) CrCl cannot be calculated (Unknown ideal weight.). Based on these values - The following adjustments have been made: Augmentin 875/125 mg 1 tab q 12 -> 500/125 mg 1 tab q 12 Levofloxacin 750 mg q24 -> 750 mg q48 I have modified the orders in IHIS to reflect the above plan.. Please contact with any questions, Name: Wilmar Reeder RPH Phone: [phone] Date/Time: 04/20/2024 11:01 PM Portable Renal US completed. Report to follow. Signout: Melodie Hernandez Medrano . 58 y.o. male with a chief complaint of Drain and Nausea received in sign-out. Vitals: 04/20/24 1419 04/20/24 1840 BP: 105/65 144/67 Pulse: 73 96 Resp: 20 15 Temp: 97.9 degrees F (36.6 degrees C) 98.3 degrees F (36.8 degrees C) TempSrc: Oral Oral SpO2: 99% The patient presents with: 58 y.o. male with PMH of DM, HTN, HLD, DVT/PE on Xarelto, melanoma, and penile cancer s/p partial penectomy on 03/06/24, admitted in March for IR drain of groin/thigh collection and admitted again on 04/09 for IR drain of left inguinal fluid collection who presents to the [facility] for evaluation of ROSA MARIA drain complication. Patient reports he noticed over the weekend his ROSA MARIA bulb was not staying primed at home and draining from the insertion site and the output in the bulb was minimal. He denies bleeding from the site, purulent drainage, edema, and pain. Also denies fever, chills, chest pain, SOB, and paresthesias. Pending studies and plan include: neph, urology (admit to their service?), and IR recommendations The expected disposition is: admit [facility] Note CC: Chief Complaint Patient presents with Drain Nausea HPI: 58 y.o. male with PMH of DM, HTN, HLD, DVT/PE on Xarelto, melanoma, and penile cancer s/p partial penectomy on 03/06/24, admitted in March for IR drain of groin/thigh collection and admitted again on 04/09 for IR drain of left inguinal fluid collection who presents to the [facility] for evaluation of ROSA MARIA drain complication. Patient reports he noticed over the weekend his ROSA MARIA bulb was not staying primed at home and draining from the insertion site and the output in the bulb was minimal. He denies bleeding from the site, purulent drainage, edema, and pain. Also denies fever, chills, chest pain, SOB, and paresthesias. ROS General: Denies fever, chills, or night sweats. Pulm: Denies SOB, cough, wheezing Cardiac: Denies chest pain, palpitations, leg edema GI: Denies nausea, vomiting, abdominal pain,diarrhea, constipation. Denies melena, hematochezia. : No dysuria, frequency, CVA tenderness, urgency, incontinence, or hematuria Neuro: Denies vision changes, lightheadedness, dizziness, focal weakness, paresthesias Skin: No skin rashes or wounds. + ROSA MARIA draining from insertion site PMH: Past Medical History: Diagnosis Date Diabetes mellitus Essential hypertension, benign Hyperlipidemia Melanoma left rib cage Penile ca Pulmonary embolism Medications No medication comments found. Surgical History: Past Surgical History: Procedure Laterality Date DRAINAGE SOFT TISSUE PERCUTANEOUS W/ IMAGE GUIDANCE Left 04/10/2024 Laterality: Left; Surgeon: Michelle Whitaker MD; Location: [facility]IOLOGY ([facility]IR) DRAINAGE SOFT TISSUE PERCUTANEOUS W/ IMAGE GUIDANCE N/A 03/20/2024 Laterality: N/A; Surgeon: Kisha Quarles DO; Location: [facility] INTERVENTIONAL RADIOLOGY ([facility]) LYMPHADENECTOMY INGUINOFEMORAL ROBOTIC Bilateral 03/05/2024 Laterality: Bilateral; Surgeon: Izaiah Maurer MD; Location: [facility] MAIN OR AMPUTATION PENIS PARTIAL N/A 01/22/2024 Laterality: N/A; Surgeon: Izaiah Maurer MD; Location: [facility] PERIOP ACL RECONSTRUCTION BACK SURGERY FOOT SURGERY Bilateral reconstructive OTHER SURGICAL Right undescended testicle VASECTOMY Physical Exam: VITALS: BP 105/65 (BP Location: Right arm, BP Position: Sitting) Pulse 73 Temp 97.9 F (36.6 C) (Oral) Resp 20 SpO2 99% Smoking Status Former GENERAL: Ambulatory, conversational, no apparent distress. EYES: PERRL, No scleral icterus. HEENT: Neck supple. Oral mucosa pink and moist without lesions, exudates. RESP: Clear to auscultation bilaterally posteriorly, no rales rhonchi or wheezes. CARDIO: Regular rate and rhythm, no murmurs ABD: Abdomen soft, non-tender. No palpable masses. SKIN: Skin color, texture, turgor normal. No rashes or lesions. EXTREMITIES: No cyanosis, and no calf tenderness. NEURO: Alert and oriented x 3. Differential Diagnosis includes but not limited to: post operative complication, ROSA MARIA drain displacement vs malfunction of drain Plan: Labs - CBC with diff, chem 7 Consults - IR service Results for orders placed or performed during the hospital encounter of 04/20/24 [facility] 7 - ED Result Value Ref Range Sodium 134 (L) 135 - 145 mmol/L Potassium 4.5 3.5 - 5.0 mmol/L Chloride 104 98 - 108 mmol/L CO2 21 21 - 31 mmol/L Glucose 162 (H) 70 - 99 mg/dL BUN 55 (H) 7 - 25 mg/dL Creatinine 3.94 (H) 0.70 - 1.30 mg/dL Bun/Crea Ratio 14 Osmolality (Calculated) 302 278 - 305 mOsm/kg Anion Gap 14 7 - 17 mmol/L eGFR, CKD-EPI, Male 17 (L) >=60 mL/min/1.73m2 CALCIUM Result Value Ref Range Calcium 8.8 8.6 - 10.5 mg/dL MAGNESIUM Result Value Ref Range Magnesium 1.5 (L) 1.6 - 2.6 mg/dL PHOSPHATE, INORGANIC Result Value Ref Range Phosphorous 4.2 2.2 - 4.6 mg/dL CBC AND ELECTRONIC DIFF Result Value Ref Range WBC Count 4.61 3.73 - 10.10 K/uL RBC Count 3.51 (L) 4.38 - 5.83 M/uL Hemoglobin 10.3 (L) 13.4 - 16.8 g/dL Hematocrit 30.3 (L) 39.6 - 48.8 % Mean Cell Volume 86.3 79.0 - 94.5 fL Mean Cell Hgb 29.3 26.1 - 33.3 pg Mean Cell Hgb Conc 34.0 31.9 - 36.5 g/dL RBC Distribution 13.4 10.9 - 14.3 % Platelet Count 165 146 - 337 K/uL Mean Platelet Volume 8.6 (L) 8.7 - 12.3 fL DIFF STATUS Electronic Differential Segs + Bands Auto 68.8 % Immature Grans % 0.2 % Lymphocyte % Auto 17.6 % Monocyte % Auto 10.2 % Eosinophil % Auto 2.8 % Basophil % Auto 0.4 % Nucleated RBC 0.0 <=0.2 /100 WBC Segs + Bands,Absolute Auto 3.17 1.57 - 6.19 K/uL Immature Grans Absolute <0.04 <=0.07 K/uL Abs Lymph Auto 0.81 (L) 0.83 - 3.57 K/uL Abs [place] Auto 0.47 0.24 - 0.93 K/uL Abs Eos Auto 0.13 0.00 - 0.48 K/uL Abs Baso Auto <0.04 0.00 - 0.09 K/uL HEPATIC FUNCTION PANEL Result Value Ref Range Albumin 3.7 3.5 - 5.0 g/dL Bilirubin Direct 0.1 <0.3 mg/dL Bilirubin Total 0.3 <1.5 mg/dL ALP 53 32 - 126 U/L ALT 12 10 - 52 U/L AST 13 10 - 39 U/L Total Protein 6.4 6.4 - 8.3 g/dL CT pelvis: IMPRESSION: Decreased size of the bilateral inguinal collections. ICC Course and Medical Decision Making: Patient is a 58 year old female with a history of penile cancer s/p partial penectomy with bilateral ROSA MARIA drains to UE who presents for evaluation of ROSA MARIA drain complication. Upon examination, patient is awake, alert, and oriented x 3. Patient is afebrile and non toxic appearing. Patient's WBC count 4.61. H/H 10.3/30.3. Platelets 165. Hyperglycemic with a blood glucose of 162. Magnesium 1.5. Sodium 134. Creatinine 3.94 today. Creatinine 4.90 at last OSH visit on 04/16. CT pelvis shows decreased size of bilateral inguinal collections. IR final recommendations pending. Urology final recommendations. Nephrology recommendations pending. Plan to admit for further evaluation and work up. Patient and understand and agree with the plan of care. Impression: KEYONNA Left ROSA MARIA drain malfunction Disposition: Admission This patient was seen independently by this Advanced Practice Provider in the [facility]mediate [facility]. documented in this encounter [facility] 04-22-2024 Plan of care note I did not see Mr. Medrano today. Susceptibilities for his Mucor returned: Amphotericin 0.06 Posaconazole 0.5 Isavuconazole 8 Given the high ADEOLA to isavuconazole, would no longer want to treat with this. Would switch to posaconazole instead. Unfortunately, there is an interaction with the patient's Xarelto, so his anticoagulation would need to be changed as discussed with the primary team. If switching to apixaban will need to reduce the apixaban dose by 50% and will need to remember to increase the dose back to normal once he stops posaconazole. I would emphasize that other azoles such as fluconazole, itraconazole, and voriconazole are not active against Mucor and their use would put the patient at risk for worsening of his infection and . Please see any review on treatment of Mucorales (for instance: https://www.ncbi.nlm.nih.gov/pmc/ articles/RPX2583166/). [facility] 04-22-2024 Nurse Note 04/22/24 1205 Referral Information Arrived From admitted as an inpatient Readmission Information Was patient readmitted within 30 Days? Yes Information Source Information Source patient ;spouse;review of medical record Outpatient Providers Outpatient Providers Updated In IHIS Yes Contact Information Crew Leader/Control Room Operator/SW Added to Care Team Yes This Telehealth Case Manager is Primary Crew Leader/Control Room Operator/SW Yes Crew Leader/Control Room Operator Name Jono Bang Crew Leader/Control Room Operator's Living Environment Lives With spouse Living Arrangement and Set Up house (2-story) Provides Primary Care For no one Primary Care Provided By spouse/significant other Support System Immediate family Able to Return to Prior Arrangements yes Functional Status Patient's Functional Status Prior To This Admission? Independent Concerns With Patient Being Able To Care For Themselves At Discharge? No Employment/Financial Employed? 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 Expected Discharge Disposition Home Anticipated Services at Discharge Outpatient clinical services (ie: lab draws, transfusions, injectables);Outpatient follow up Anticipated Changes Related to Illness none Current Discharge Risk chronically ill Transportation Available family or friend will provide Assessment/Concerns to be Addressed Concerns To Be Addressed denies needs/concerns at this time PCRM Initial Assessment Met with patient and spouse, Mendoza to complete the initial assessment. Explained role and function of PCRM in multidisciplinary team. Contact number provided for questions. Demographic information reviewed with patient & spouse and confirmed as correct. Reason for Admission: Patient is a 58 y.o. male of afib, DVT, HTN, HLD, T2DM, and penile cancer who was a admitted for c/o of left inguinal drain not draining and KEYONNA. Estimated length of stay: Depends on medical stability and clinical course of illness Advance directives Patient does not have Advanced Directives on File Lines/Drains/Tubes PIV to be removed prior to discharge per hospital policy 2 ROSA MARIA drains Initial PCRM Discharge Planning Patient lives with spouse of 35 years in a 2-story house where the bedroom and bathroom is situated on the second level. Patient ambulates independently without the need for assistive device, no history of fall. Patient states he manages his drains at home and denies the need for HHC, he also has dressing supplies at home. Spouse will provide transport for discharge to home. Final plan will be determined closer to discharge, pending therapy and medical team recommendations. Patient/family verbalized understanding and agreement with the plan of care. Patient/family have no questions at this time. PCRM will continue to follow patient with multidisciplinary team for ongoing assessment of needs and for discharge planning. Medical team updated. Jono CALDERON RN, [facility] 04-22-2024 Plan of care note Pt updated on plan of care. Remains NPO. Drain exchange scheduled for 1520 today, INR drawn this morning. Mag replaced. Pt resting in bed, calling out appropriately for assistance, bed alarm off at this time. Spouse at bedside Problem: Adult Inpatient Plan of Care Goal: Plan of Care Review Outcome: Progressing Goal: Patient-Specific Goal (Individualized) Outcome: Progressing Goal: Absence of Hospital-Acquired Illness or Injury Outcome: Progressing Goal: Optimal Comfort and Wellbeing Outcome: Progressing Goal: Readiness for Transition of Care Outcome: Progressing Problem: Infection Goal: Absence of Infection Signs and Symptoms Outcome: Progressing [facility] 04-21[facility]2024 Consult note Associated Order (s): IP CONSULT TO NEPHROLOGY Subjective I saw Melodie Medrano Jr. at the [facility] on 04/21/2024. Reason for Consultation: Acute Kidney Injury Primary Physician: Neo Finnegan MD History of Present Illness: Melodie Medrano Jr. is a 58 y.o. male who we have been consulted to see on 04/21/2024. The patient is a 58yo male with hx of NIDDM2, HTN, melanoma, PE, and penile cancer s/p partial penectomy who had multiple hospitalizations in March. Had right groin collection requiring drain on 03/20 followed by left inguinal collection with IR drain placed 04/09 and then admitted 04/12 diagnosed with mucor infection from drain culture. Initially treated with ampho and then switched to cresemba along with augmentin and cipro. Discharged on 04/15 with Scr of 1.2. patient reports had lab work done last week with SCr of 4.9. He states he had poor po intake since discharge. Constant nausea and poor taste with the antibiotics. Tried to hydrate the last few days with gatorade. On presentation his Scr was 3.9 and he was given IVF in ER. SCr this am down to 3.1. Reports normal urine output. Denies sob, swelling, diarrhea, fever, or vomiting. No prior hx of kidney disease. Past Medical History: Diagnosis Date Diabetes mellitus Essential hypertension, benign Hyperlipidemia Melanoma left rib cage Penile ca Pulmonary embolism Scheduled Meds: amLODIPine 5 mg Oral Daily Amoxicillin-clavulanate 1 tablet Oral Q12H Ciprofloxacin 750 mg Oral Q12H Insulin lispro Subcutaneous 4x daily w/meals, HS Isavuconazonium 372 mg Oral Q24H Metoprolol succinate 50 mg Oral Daily Rosuvastatin 10 mg Oral Daily Tamsulosin HCl 0.4 mg Oral Daily IV Infusions: heparin 20 Units/kg/hr (04/21/24 1451) Sodium chloride 0.9% 125 mL/hr at 04/21/24 1210 No Known Allergies Family History Problem Relation Age of Onset Aneurysm Father Cancer- Other Father melanoma Lung Cancer Maternal Grandmother Social History Socioeconomic History Marital status: Spouse name: Not on file Number of children: Not on file Years of education: Not on file Highest education level: Not on file Occupational History Not on file Tobacco Use Smoking status: Former Types: Cigarettes Smokeless tobacco: Former Types: Chew Substance and Sexual Activity Alcohol use: Yes Alcohol/week: 4.0 standard drinks of alcohol Types: 4 Shots of liquor per week Drug use: Never Sexual activity: Not on file Other Topics Concern Not on file Social History Narrative Not on file Social Determinants of Health Financial Resource Strain: Not on file Food Insecurity: No Food Insecurity (04/13/2024) Hunger Vital Sign Worried About Running Out of Food in the Last Year: Never true Ran Out of Food in the Last Year: Never true Transportation Needs: No Transportation Needs (04/13/2024) PRAPARE - Transportation Lack of Transportation (Medical): No Lack of Transportation (Non-Medical): No Physical Activity: Not on file Stress: Not on file Social Connections: Not on file Intimate Partner Violence: Patient Unable To Answer (04/13/2024) Humiliation, Afraid, Rape, and Kick questionnaire Fear of Current or Ex-Partner: Patient unable to answer Emotionally Abused: Patient unable to answer Physically Abused: Patient unable to answer Sexually Abused: Patient unable to answer Housing Stability: Low Risk (04/13/2024) Housing Stability Vital Sign Unable to Pay for Housing in the Last Year: No Number of Times Moved in the Last Year: 1 Homeless in the Last Year: No Review of Systems: General ROS: As above otherwise ROS is negative Physical Examination: Vital Signs Temp: [97.5 F (36.4 C)-98.3 F (36.8 C)] 97.5 F (36.4 C) Pulse (Heart Rate): [58-96] 70 Resp Rate: [15-18] 18 BP: (122-144)/(67-79) 133/76 O2 Sat (%): [95 %-98 %] 97 % Weight: [108.4 kg (238 lb 14.4 oz)] 108.4 kg (238 lb 14.4 oz) I/O last 3 completed shifts: In: 1271.6 [I.V.:1232.4; IV Piggyback:39.2] Out: 1315 [Urine:1250; Other:65] No intake/output data recorded. BP 133/76 (BP Location: Right arm, BP Position: Lying) Pulse 70 Temp 97.5 F (36.4 C) (Oral) Resp 18 Ht 1.956 m (6' 5) Wt 108.4 kg (238 lb 14.4 oz) SpO2 97% BMI 28.33 kg/m Smoking Status Former Constitutional: Alert, oriented, NAD HEENT: no scleral icterus, o/p - moist Neck: Neck supple, no LAD, no masses Chest: Clear to auscultation bilaterally Cardiovascular: RRR, no rubs, no peripheral edema Abdominal: Soft. NT, ND, +BS Musculoskeletal: no synovitis Extremities: Warm and well pefused Neurological: non-focal Skin: no rash or excoriations Relevant Data: Lab Results Component Value Date SODIUM 139 04/21/2024 POTASSIUM 4.2 04/21/2024 CHLORIDE 109 (H) 04/21/2024 CO2 20 (L) 04/21/2024 BUN 46 (H) 04/21/2024 CREATSERUM 3.10 (H) 04/21/2024 GLUCOSE 134 (H) 04/21/2024 Lab Results Component Value Date WBC 4.18 04/21/2024 HGB 10.1 (L) 04/21/2024 HCT 29.2 (L) 04/21/2024 PLATELET 139 (L) 04/21/2024 MCV 85.1 04/21/2024 Lab Results Component Value Date SPGRVTYUR >1.045 (H) 03/16/2024 GLUCOSEURINE 250 mg/dL (A) 03/16/2024 KETONESURINE Negative 03/16/2024 BLOODURINE Negative 03/16/2024 NITRITESURIN Negative 03/16/2024 LEUKOCESTUR Negative 03/16/2024 WBCURINE 11 - 20 (A) 03/16/2024 RBCURINE 0-2 03/16/2024 BACTERIAURIN ABSENT 03/16/2024 Lab Results Component Value Date CREATSERUM 3.10 (H) 04/21/2024 CREATSERUM 3.94 (H) 04/20/2024 CREATSERUM 1.20 04/14/2024 CREATSERUM 0.99 01/31/2024 CREATSERUM 0.88 11/29/2023 CREATSERUM 0.66 (L) 08/16/2023 Impression: Acute Kidney injury Metabolic acidosis Hypovolemia Mucor infection Assessment/Plan: 58yo male with hx of NIDDM2, HTN, melanoma, PE, and penile cancer s/p partial penectomy s/p multiple drains and mucor infection admitted with KEYONNA. Scr worse 1 week ago by outside labs and improving with hydration. Acute kidney injury - likely secondary to hypovolemia. Appears to be improving and volume responsive. SCr trending down. Alternative etiology could be AIN from antibiotics or ATN. Doubt alternative process. Renal ultrasound negative for obstruction - please check urinalysis - Would change IVF to LR at 100ml/hr for next 12 hours - Control nausea and encourage PO intake - Repeat chem6 this evening. If renal function improving, would then stop IVF to avoid unnecessary use of fluids. - Monitor I/Os and trend labs daily - Will evaluate urine sediment to ensure no concern for AIN from cipro/augmentin. Thank you for allowing us to participate in the care of this patient. Nephrology will follow. Terrence weaver MD [id number] allergy and immunology chief Division of Nephrology [facility] Work Phone: 04-21-2024 Consult note Associated Order (s): IP CONSULT TO NEPHROLOGY Subjective I saw Melodie Medrano Jr. at the [facility] on 04/21/2024. Reason for Consultation: Acute Kidney Injury Primary Physician: Neo Finnegan MD History of Present Illness: Melodie Medrano Jr. is a 58 y.o. male who we have been consulted to see on 04/21/2024. The patient is a 58yo male with hx of NIDDM2, HTN, melanoma, PE, and penile cancer s/p partial penectomy who had multiple hospitalizations in March. Had right groin collection requiring drain on 03/20 followed by left inguinal collection with IR drain placed 04/09 and then admitted 04/12 diagnosed with mucor infection from drain culture. Initially treated with ampho and then switched to cresemba along with augmentin and cipro. Discharged on 04/15 with Scr of 1.2. patient reports had lab work done last week with SCr of 4.9. He states he had poor po intake since discharge. Constant nausea and poor taste with the antibiotics. Tried to hydrate the last few days with gatorade. On presentation his Scr was 3.9 and he was given IVF in ER. SCr this am down to 3.1. Reports normal urine output. Denies sob, swelling, diarrhea, fever, or vomiting. No prior hx of kidney disease. Past Medical History: Diagnosis Date Diabetes mellitus Essential hypertension, benign Hyperlipidemia Melanoma left rib cage Penile ca Pulmonary embolism Scheduled Meds: amLODIPine 5 mg Oral Daily Amoxicillin-clavulanate 1 tablet Oral Q12H Ciprofloxacin 750 mg Oral Q12H Insulin lispro Subcutaneous 4x daily w/meals, HS Isavuconazonium 372 mg Oral Q24H Metoprolol succinate 50 mg Oral Daily Rosuvastatin 10 mg Oral Daily Tamsulosin HCl 0.4 mg Oral Daily IV Infusions: heparin 20 Units/kg/hr (04/21/24 1451) Sodium chloride 0.9% 125 mL/hr at 04/21/24 1210 No Known Allergies Family History Problem Relation Age of Onset Aneurysm Father Cancer- Other Father melanoma Lung Cancer Maternal Grandmother Social History Socioeconomic History Marital status: Spouse name: Not on file Number of children: Not on file Years of education: Not on file Highest education level: Not on file Occupational History Not on file Tobacco Use Smoking status: Former Types: Cigarettes Smokeless tobacco: Former Types: Chew Substance and Sexual Activity Alcohol use: Yes Alcohol/week: 4.0 standard drinks of alcohol Types: 4 Shots of liquor per week Drug use: Never Sexual activity: Not on file Other Topics Concern Not on file Social History Narrative Not on file Social Determinants of Health Financial Resource Strain: Not on file Food Insecurity: No Food Insecurity (04/13/2024) Hunger Vital Sign Worried About Running Out of Food in the Last Year: Never true Ran Out of Food in the Last Year: Never true Transportation Needs: No Transportation Needs (04/13/2024) PRAPARE - Transportation Lack of Transportation (Medical): No Lack of Transportation (Non-Medical): No Physical Activity: Not on file Stress: Not on file Social Connections: Not on file Intimate Partner Violence: Patient Unable To Answer (04/13/2024) Humiliation, Afraid, Rape, and Kick questionnaire Fear of Current or Ex-Partner: Patient unable to answer Emotionally Abused: Patient unable to answer Physically Abused: Patient unable to answer Sexually Abused: Patient unable to answer Housing Stability: Low Risk (04/13/2024) Housing Stability Vital Sign Unable to Pay for Housing in the Last Year: No Number of Times Moved in the Last Year: 1 Homeless in the Last Year: No Review of Systems: General ROS: As above otherwise ROS is negative Physical Examination: Vital Signs Temp: [97.5 F (36.4 C)-98.3 F (36.8 C)] 97.5 F (36.4 C) Pulse (Heart Rate): [58-96] 70 Resp Rate: [15-18] 18 BP: (122-144)/(67-79) 133/76 O2 Sat (%): [95 %-98 %] 97 % Weight: [108.4 kg (238 lb 14.4 oz)] 108.4 kg (238 lb 14.4 oz) I/O last 3 completed shifts: In: 1271.6 [I.V.:1232.4; IV Piggyback:39.2] Out: 1315 [Urine:1250; Other:65] No intake/output data recorded. BP 133/76 (BP Location: Right arm, BP Position: Lying) Pulse 70 Temp 97.5 F (36.4 C) (Oral) Resp 18 Ht 1.956 m (6' 5) Wt 108.4 kg (238 lb 14.4 oz) SpO2 97% BMI 28.33 kg/m Smoking Status Former Constitutional: Alert, oriented, NAD HEENT: no scleral icterus, o/p - moist Neck: Neck supple, no LAD, no masses Chest: Clear to auscultation bilaterally Cardiovascular: RRR, no rubs, no peripheral edema Abdominal: Soft. NT, ND, +BS Musculoskeletal: no synovitis Extremities: Warm and well pefused Neurological: non-focal Skin: no rash or excoriations Relevant Data: Lab Results Component Value Date SODIUM 139 04/21/2024 POTASSIUM 4.2 04/21/2024 CHLORIDE 109 (H) 04/21/2024 CO2 20 (L) 04/21/2024 BUN 46 (H) 04/21/2024 CREATSERUM 3.10 (H) 04/21/2024 GLUCOSE 134 (H) 04/21/2024 Lab Results Component Value Date WBC 4.18 04/21/2024 HGB 10.1 (L) 04/21/2024 HCT 29.2 (L) 04/21/2024 PLATELET 139 (L) 04/21/2024 MCV 85.1 04/21/2024 Lab Results Component Value Date SPGRVTYUR >1.045 (H) 03/16/2024 GLUCOSEURINE 250 mg/dL (A) 03/16/2024 KETONESURINE Negative 03/16/2024 BLOODURINE Negative 03/16/2024 NITRITESURIN Negative 03/16/2024 LEUKOCESTUR Negative 03/16/2024 WBCURINE 11 - 20 (A) 03/16/2024 RBCURINE 0-2 03/16/2024 BACTERIAURIN ABSENT 03/16/2024 Lab Results Component Value Date CREATSERUM 3.10 (H) 04/21/2024 CREATSERUM 3.94 (H) 04/20/2024 CREATSERUM 1.20 04/14/2024 CREATSERUM 0.99 01/31/2024 CREATSERUM 0.88 11/29/2023 CREATSERUM 0.66 (L) 08/16/2023 Impression: Acute Kidney injury Metabolic acidosis Hypovolemia Mucor infection Assessment/Plan: 58yo male with hx of NIDDM2, HTN, melanoma, PE, and penile cancer s/p partial penectomy s/p multiple drains and mucor infection admitted with KEYONNA. Scr worse 1 week ago by outside labs and improving with hydration. Acute kidney injury - likely secondary to hypovolemia. Appears to be improving and volume responsive. SCr trending down. Alternative etiology could be AIN from antibiotics or ATN. Doubt alternative process. Renal ultrasound negative for obstruction - please check urinalysis - Would change IVF to LR at 100ml/hr for next 12 hours - Control nausea and encourage PO intake - Repeat chem6 this evening. If renal function improving, would then stop IVF to avoid unnecessary use of fluids. - Monitor I/Os and trend labs daily - Will evaluate urine sediment to ensure no concern for AIN from cipro/augmentin. Thank you for allowing us to participate in the care of this patient. Nephrology will follow. Terrence weaver MD [id number] allergy and immunology chief Division of Nephrology Associated Order(s): IP CONSULT TO INFECTIOUS DISEASE INFECTIOUS DISEASE CONSULT NOTE Referring provider: Neo Finnegan MD Reason for Consult: KEYONNA Chief complaint: Chief Complaint Patient presents with Drain Nausea ASSESSMENT AND RECOMMENDATIONS: Melodie Medarno Jr. is a 58 y.o. male with a history of T2DM, DVT/PE on xarelto, and penile cancer s/p partial penectomy and bilateral inguinal LN dissections 03/05/24 c/b development of bilateral inguinal abscesses s/p bilateral drain placement who presents with leaking around the L sided drain and is found to have KEYONNA. None of his antibiotics would be expected to contribute to renal dysfunction. His collections appear to be improving. Please continue cipro, amox/clav, and isavuconazole. Cipro and amox/clav dosing will need to be adjusted with changing renal function. Isavuconazole does not need to be changed with renal function. Please refer to OOAT note from 04/13 for EOT and additional details. If dosing on discharge will be changed please reach out for a new OOAT note. Thank you for involving us in the care of this patient. ID Team 5 will sign off. Myrna Greene MD PhD Clinical County Extension Agent Division of Infectious Diseases HPI: Melodie Medrano Jr. is a 58 y.o. male with a history of T2DM, DVT/PE on xarelto, and penile cancer s/p partial penectomy and bilateral inguinal LN dissections 03/05/24 c/b development of bilateral inguinal abscesses s/p bilateral drain placement who presents with leaking around the L sided drain. He was recently admitted 04/09-04/11 for these bilateral collections and underwent IR drainage of each. Cultures grew viridans Strep, Pseudomonas putida, Enterococcus faecalis, Staph epi, and Mucor (only from the L drain). He was seen by ID and discharged on cipro, amox/clav, and isavuconazole (opted not to use posa due to interaction with xarelto). He returns now with leaking around the L drain and is found to have KEYONNA. CT shows improvement in bilateral fluid collections. He denies fevers, chills, sweats, or other symptoms. He says he felt fine and only presented due to concerns about the drain. Plan is for drain replacement with IR. ROS: Pertinent positives/negatives as outlined in the HPI. All other systems reviewed and are negative. Past Medical History Past Medical History: Diagnosis Date Diabetes mellitus Essential hypertension, benign Hyperlipidemia Melanoma left rib cage Penile ca Pulmonary embolism Surgical History Past Surgical History: Procedure Laterality Date DRAINAGE SOFT TISSUE PERCUTANEOUS W/ IMAGE GUIDANCE Left 04/10/2024 Laterality: Left; Surgeon: Michelle Whitaker MD; Location: [facility] INTERVENTIONAL RADIOLOGY (VIR) DRAINAGE SOFT TISSUE PERCUTANEOUS W/ IMAGE GUIDANCE N/A 03/20/2024 Laterality: N/A; Surgeon: Kisha Quarles DO; Location: [facility] INTERVENTIONAL RADIOLOGY (VIR) LYMPHADENECTOMY INGUINOFEMORAL ROBOTIC Bilateral 03/05/2024 Laterality: Bilateral; Surgeon: Izaiah Maurer MD; Location: [facility] MAIN OR AMPUTATION PENIS PARTIAL N/A 01/22/2024 Laterality: N/A; Surgeon: Izaiah Maurer MD; Location: [facility] OSC PERIOP ACL RECONSTRUCTION BACK SURGERY FOOT SURGERY Bilateral reconstructive OTHER SURGICAL Right undescended testicle VASECTOMY Family History: Family History Problem Relation Age of Onset Aneurysm Father Cancer- Other Father melanoma Lung Cancer Maternal Grandmother Social History: Social History Socioeconomic History Marital status: Spouse name: Not on file Number of children: Not on file Years of education: Not on file Highest education level: Not on file Occupational History Not on file Tobacco Use Smoking status: Former Types: Cigarettes Smokeless tobacco: Former Types: Chew Substance and Sexual Activity Alcohol use: Yes Alcohol/week: 4.0 standard drinks of alcohol Types: 4 Shots of liquor per week Drug use: Never Sexual activity: Not on file Other Topics Concern Not on file Social History Narrative Not on file Social Determinants of Health Financial Resource Strain: Not on file Food Insecurity: No Food Insecurity (04/13/2024) Hunger Vital Sign Worried About Running Out of Food in the Last Year: Never true Ran Out of Food in the Last Year: Never true Transportation Needs: No Transportation Needs (04/13/2024) PRAPARE - Transportation Lack of Transportation (Medical): No Lack of Transportation (Non-Medical): No Physical Activity: Not on file Stress: Not on file Social Connections: Not on file Intimate Partner Violence: Patient Unable To Answer (04/13/2024) Humiliation, Afraid, Rape, and Kick questionnaire Fear of Current or Ex-Partner: Patient unable to answer Emotionally Abused: Patient unable to answer Physically Abused: Patient unable to answer Sexually Abused: Patient unable to answer Housing Stability: Low Risk (04/13/2024) Housing Stability Vital Sign Unable to Pay for Housing in the Last Year: No Number of Times Moved in the Last Year: 1 Homeless in the Last Year: No Allergies No Known Allergies Physical Exam: Vitals: 04/21/24 1122 BP: 122/73 Pulse: 58 Resp: 18 Temp: 98.1 F (36.7 C) SpO2: 98% GEN: Comfortable appearing EYES: EOMI, no scleral icterus HENT: MMM. No oral lesions. RESP: CTAB. No increased work of breathing CARDIO: RRR, no murmur. GI: Abdomen soft, not tender or distended. MSK: No obvious effusion, swelling, or erythema of major joints. SKIN: No rashes. NEURO: Alert and oriented. Moves all four extremities. HEME/LYMPH: No bruising Labs/Imaging: Labs and micro were personally reviewed and are significant for: WBC/Hgb/Hct/Plts: 4.18/10.1/29.2/139 (04/21 547) Bun/Creat/Cl/CO2/Glucose: 46/3.10/109/20/134 (04/21 0547-04/21 1304) Estimated Creatinine Clearance: 36 mL/min (A) (by C-G formula based on SCr of 3.1 mg/dL (H)). Micro as in HPI documented in this encounter [facility] 04-21-2024 Hospital Discharge instructions Angie Schuler RN - 04/21/2024 2:30 PM EDT Images from the original note were not included. Your Crew Leader/Control Room Operator (PCRM) has arranged your appointments for follow up based on your preference of where you would like to continue your care. If you are unable to attend appointments that have been arranged for you, it is your responsibility to call to reschedule at least 48 hours prior to the appointment date. Your After Visit Summary (AVS) has provided you with instructions for your discharge. It is your responsibility to ask questions if you have any. Please contact your medical care team at the numbers listed if you should have any additional questions. IMPORTANT: Automated Post Discharge Call Patient Information As part of your care, we will call you at the primary number we have on file, the day after you are discharged at 9:30 a.m. to check on you. Please expect a two-minute automated telephone call from the hospital. This call will come from [phone]. If you are unable to answer or do not receive the automated call, please call [phone] to complete this important evaluation. By answering the phone evaluation, a [facility] nurse will be notified if you have any questions or concerns and call you back. If you have an immediate medical need call your doctor s office, or if you have a medical emergency call [phone]. [facility] Transition of Care Clinic Direct Office Line: [phone] [facility] Scheduling Office: [phone] A referral has been placed to the [facility] clinic. A senior power scheduler will be contacting you within 48 hours of your hospital discharge with an appointment. THIS WILL TYPICALLY BE A TELEVISIT - IF YOU GET A TEXT REMINDER WITH AN ADDRESS, DO NOT PRESENT TO THE ADDRESS UNLESS INSTRUCTED TO DO SO WHEN CONTACTED BY SCHEDULING. In an effort to provide improved continuity of care for our patients, the [facility] has established a new Transition of Care clinic to follow up with our recently discharged patients. The providers in this clinic will be focused on the medical problem that caused your admission and will answer any questions that have come up since you have left the hospital. They may ask about your symptoms, your medications, and try to address any other concerns. The transition clinic will not be addressing your overall plan for cancer care, so it will still be important for you to also follow up with your primary oncologist to discuss those details. Smartphones, tablets, or computers can be used for televists. Test your device's hardware before your appointment to confirm your device meets audio, video and web browser requirements. At or near your appointment time your provider will send you a link by text to join your video visit. You do not have to be enrolled in [facility] to participate in this televisit. Angie Schuler RN - 04/21/2024 2:29 PM EDT Activity: Please follow these instructions: You may perform the following activities: -Resume your usual activities without restrictions. -Take rest periods during the day as needed. -Walk as much as you can to increase your strength and endurance. Angie Schuler RN - 04/21/2024 2:29 PM EDT Diet: Your doctor has recommended that you follow these diet instructions at home. Refer to the patient education materials you received during your hospital stay. If you would like more nutrition counseling, ask your doctor about making an appointment with an outpatient dietitian. Regular Diet to help you maintain your health and control your weight. Choose healthy fats and oils such as canola or olive oils, and good sources of fiber and carbohydrates. Choose lean meats or vegetables proteins. Avoid adding salt to your foods. Increase daily intake of fruits and vegetables. Angie Schuler RN - 04/21/2024 2:30 PM EDT Notify Your Doctor or Nurse if you have any of the following: Catheter or tube problems Call your doctor or nurse if you have problems with your tube or catheter such as it breaks or leaks, falls out, is not able to be flushed and has drainage coming from around the tube site. Decreased Urination Call your doctor or nurse if you are not able to urinate after 12 hours. Fever, Chills, or Flu Call your doctor or nurse if you have a temperature greater than 100.5 degrees F and/or chills. Nausea and Vomiting Call your doctor or nurse if you have nausea and vomiting that continues more than 24 hours, will not let you keep medicine down and will not let you keep fluids down Unrelieved Pain Call your doctor or nurse if your pain gets worse or is not eased 1 hour after taking your pain medicine. Urinary Tract Infection Symptoms Call your doctor or nurse if you have signs of a urinary tract infection such as: -Urine is cloudy, bloody or has a bad odor -You leak urine or you have to urinate more often -You feel burning when you urinate -You have a temperature greater than 100.5 Miscellaneous Education [facility] Care Classes [facility] offers a series of monthly classes about integrative care. Integrative care involves other care methods that may be used along with your other cancer treatment. Learn about the role of exercise, diet and nutrition, manual and movement therapies as part of a cancer care program. Classes also provide a chance to share thoughts and concerns with other cancer survivors, their families and friends. For more information, contact [facility] at or visit our website at [email or web address] Prevention Many falls can be prevented. Here are some things you can do. First, tell your doctor or nurse if you have fallen or nearly fallen. Ask if you could see a physical therapist (PT) to help you improve your strength and balance. Check with your doctor or pharmacist to see if any of the medicines that you take may increase your risk for falls. Have your vision checked each year. See your doctor if you are dizzy or weak with any illness. Wear comfortable shoes with low, broad heels and soles that sales training representative. Drink enough liquid each day. Ask your doctor how much is enough. Consider using an emergency personal medical alert system. Get up slowly after sitting or lying down. Remove throw rugs, improve lighting, use reflective tape on stairs. Positive Coping Skills Coping skills are a way to decrease the negative effects of stress, anger, and anxiety. It is important to use these skills daily to maintain a manageable level of stress, decrease anxiety, and deal positively with anger. Examples of coping skills: Exercise or take a walk daily. Use relaxation or deep breathing. Engage in a positive recreation interest. Listen to calming music. Manage your time well. Talk to someone. Take a break. Eat a balanced diet. Maintain a regular sleep schedule. Additional Contacts: Cancer Resources For more information about support groups and other resources offered, contact: -[facility] at [phone] to find out about support groups offered by [facility] at [phone] or online at www.cancer.org [facility] at [phone] or online at www.[facility]are[facility].org Patient education videos are available on The [facility] website. These videos may help you to better understand your cancer or cancer treatments. The videos also give tips on how to care for yourself to help you feel your best. Here is the link to watch these videos: <a href=[email or web address].[email or web address]/james ntgiftydeos target=_blank>Cancer Videos</a> However, if you are using a smart phone, you will need to use [email or web address]/patientedvi deos. Jono CALDERON RN, [facility] documented in this encounter [facility] 04-21-2024 Consult note Associated Order (s): IP CONSULT TO INFECTIOUS DISEASE INFECTIOUS DISEASE CONSULT NOTE Referring provider: Neo Finnegan MD Reason for Consult: KEYONNA Chief complaint: Chief Complaint Patient presents with Drain Nausea ASSESSMENT AND RECOMMENDATIONS: Melodie Hernandez Medrano Jr. is a 58 y.o. male with a history of T2DM, DVT/PE on xarelto, and penile cancer s/p partial penectomy and bilateral inguinal LN dissections 03/05/24 c/b development of bilateral inguinal abscesses s/p bilateral drain placement who presents with leaking around the L sided drain and is found to have KEYONNA. None of his antibiotics would be expected to contribute to renal dysfunction. His collections appear to be improving. Please continue cipro, amox/clav, and isavuconazole. Cipro and amox/clav dosing will need to be adjusted with changing renal function. Isavuconazole does not need to be changed with renal function. Please refer to OOAT note from 04/13 for EOT and additional details. If dosing on discharge will be changed please reach out for a new OOAT note. Thank you for involving us in the care of this patient. ID Team 5 will sign off. Myrna Greene MD PhD Clinical County Extension Agent Division of Infectious Diseases HPI: Melodie Medrano . is a 58 y.o. male with a history of T2DM, DVT/PE on xarelto, and penile cancer s/p partial penectomy and bilateral inguinal LN dissections 03/05/24 c/b development of bilateral inguinal abscesses s/p bilateral drain placement who presents with leaking around the L sided drain. He was recently admitted 04/09-04/11 for these bilateral collections and underwent IR drainage of each. Cultures grew viridans Strep, Pseudomonas putida, Enterococcus faecalis, Staph epi, and Mucor (only from the L drain). He was seen by ID and discharged on cipro, amox/clav, and isavuconazole (opted not to use posa due to interaction with xarelto). He returns now with leaking around the L drain and is found to have KEYONNA. CT shows improvement in bilateral fluid collections. He denies fevers, chills, sweats, or other symptoms. He says he felt fine and only presented due to concerns about the drain. Plan is for drain replacement with IR. ROS: Pertinent positives/negatives as outlined in the HPI. All other systems reviewed and are negative. Past Medical History Past Medical History: Diagnosis Date Diabetes mellitus Essential hypertension, benign Hyperlipidemia Melanoma left rib cage Penile ca Pulmonary embolism Surgical History Past Surgical History: Procedure Laterality Date DRAINAGE SOFT TISSUE PERCUTANEOUS W/ IMAGE GUIDANCE Left 04/10/2024 Laterality: Left; Surgeon: Michelle Whitaker MD; Location: [facility] INTERVENTIONAL RADIOLOGY (VIR) DRAINAGE SOFT TISSUE PERCUTANEOUS W/ IMAGE GUIDANCE N/A 03/20/2024 Laterality: N/A; Surgeon: Kisha Quarles DO; Location: [facility] INTERVENTIONAL RADIOLOGY (VIR) LYMPHADENECTOMY INGUINOFEMORAL ROBOTIC Bilateral 03/05/2024 Laterality: Bilateral; Surgeon: Izaiah Maurer MD; Location: [facility] MAIN OR AMPUTATION PENIS PARTIAL N/A 01/22/2024 Laterality: N/A; Surgeon: Izaiah Maurer MD; Location: [facility] OSC PERIOP ACL RECONSTRUCTION BACK SURGERY FOOT SURGERY Bilateral reconstructive OTHER SURGICAL Right undescended testicle VASECTOMY Family History: Family History Problem Relation Age of Onset Aneurysm Father Cancer- Other Father melanoma Lung Cancer Maternal Grandmother Social History: Social History Socioeconomic History Marital status: Spouse name: Not on file Number of children: Not on file Years of education: Not on file Highest education level: Not on file Occupational History Not on file Tobacco Use Smoking status: Former Types: Cigarettes Smokeless tobacco: Former Types: Chew Substance and Sexual Activity Alcohol use: Yes Alcohol/week: 4.0 standard drinks of alcohol Types: 4 Shots of liquor per week Drug use: Never Sexual activity: Not on file Other Topics Concern Not on file Social History Narrative Not on file Social Determinants of Health Financial Resource Strain: Not on file Food Insecurity: No Food Insecurity (04/13/2024) Hunger Vital Sign Worried About Running Out of Food in the Last Year: Never true Ran Out of Food in the Last Year: Never true Transportation Needs: No Transportation Needs (04/13/2024) PRAPARE - Transportation Lack of Transportation (Medical): No Lack of Transportation (Non-Medical): No Physical Activity: Not on file Stress: Not on file Social Connections: Not on file Intimate Partner Violence: Patient Unable To Answer (04/13/2024) Humiliation, Afraid, Rape, and Kick questionnaire Fear of Current or Ex-Partner: Patient unable to answer Emotionally Abused: Patient unable to answer Physically Abused: Patient unable to answer Sexually Abused: Patient unable to answer Housing Stability: Low Risk (04/13/2024) Housing Stability Vital Sign Unable to Pay for Housing in the Last Year: No Number of Times Moved in the Last Year: 1 Homeless in the Last Year: No Allergies No Known Allergies Physical Exam: Vitals: 04/21/24 1122 BP: 122/73 Pulse: 58 Resp: 18 Temp: 98.1 F (36.7 C) SpO2: 98% GEN: Comfortable appearing EYES: EOMI, no scleral icterus HENT: MMM. No oral lesions. RESP: CTAB. No increased work of breathing CARDIO: RRR, no murmur. GI: Abdomen soft, not tender or distended. MSK: No obvious effusion, swelling, or erythema of major joints. SKIN: No rashes. NEURO: Alert and oriented. Moves all four extremities. HEME/LYMPH: No bruising Labs/Imaging: Labs and micro were personally reviewed and are significant for: WBC/Hgb/Hct/Plts: 4.18/10.1/29.2/139 (04/21 547) Bun/Creat/Cl/CO2/Glucose: 46/3.10/109/20/134 (04/21 547-04/21 130) Estimated Creatinine Clearance: 36 mL/min (A) (by C-G formula based on SCr of 3.1 mg/dL (H)). Micro as in HPI [facility] 04-21-2024 Plan of care note INTERVENTIONAL RADIOLOGY PLAN OF CARE NOTE Patient Name: Melodie Medrano Jr. Date of : 1965 Age: 58 y.o. Sex: male HPI: see consult note dated 04/20/2024 58 y.o. male with hx of DM, HTN, HLD, DVT/PE on Xarelto, and melanoma s/p BL robotic assisted inguinofemoral lymphadenectomy (03/05/24), since has recurrent bilateral groin collections. IR placed bilateral drains, and the left groin ROSA MARIA has been leaking around the insertion site. IR consulted for left groin drain intervention. Assessment & Plan: Requested CT pelvis to assess collection. Imaging shows decrease in size of collection and potential for repositioning to aid in drainage. Further, notified by referring team that the left drain is cracked. Will plan for a left inguinal collection drain replace/reposition, to schedule as imaging suite availability permits. Please keep NPO at midnight prior to the procedure. Please keep Hgb 7.0 or greater Coag goals: INR < 2-3 and platelets > 20k No need to hold anticoagulation for low bleeding risk procedure, per guidelines. DM. Nga-procedural diabetes medication adjustments per protocol and accucheck pre-procedure. Please notify IR if the situation changes. Note: procedure subject to cancellation or re-scheduling should threshold labs not be met or patient found to be hemodynamically unstable at the time of the procedure. IR attending Dr. Cruz agrees with the above. Discussed with Dr. Finnegan from the referring team 04/21/2024 11:47 AM Thank you for allowing Interventional Radiology to participate in this patient's care. BIANCA Ramirez; 04/21/2024, 11:47 AM Please IHIS message or page [phone] with questions. [facility] Work Phone: 04-21-2024 Emergency department Note Patient taken to room 64587 via wheelchair with all belongings [facility] 04-21-2024 Emergency department Note Patient taken to room 33381 via wheelchair with all belongings Pt reports to [facility] c/o ROSA MARIA drain on L groin leaking since Wednesday 04/18. This drain was placed when pt was recently admitted for an infection of another drain in L thigh/knee that was removed during this admission. Bed: 04 Expected date: 04/20/24 Expected time: 2:30 PM Means of arrival: Comments: documented in this encounter [facility] 04-20-2024 History and physical note CANCER MEDICINE ADMISSION H&P TODAY'S DATE: 04/20/2024 ADMIT DATE: 04/20/2024 2:17 PM REASON FOR ADMISSION: inguinal drain malfunction and KEYONNA Primary Oncologist: Sydney (urology) ASSESSMENT AND PLAN Melodie Medrano is a 58 y.o. male with a PMH of afib, DVT, HTN, HLD, T2DM, and penile cancer who was a admitted for c/o of left inguinal drain not draining and KEYONNA. ACUTE PROBLEMS KEYONNA - CR 3.94 in ED (last 1.20 on 04/14) - renal ultrasound ordered in [facility] - will give 1L fluid bolus - check urine lytes/osmo - nephrology c/s in [facility] - daily chem Inguinal drain malfunction Bilateral inguinal fluid collections - Admitted 03/16 for IR drain on 03/20 of right groin/thigh collection - Admitted 04/09 for IR drain on 04/10 of left inguinal collection - Admitted 04/12-04/13 for antifungals given Mucro sp on drain culture per ID and was discharged on Isavuconazole and augmentin and cipro for 6 weeks. EOT 05/25. - pt reports left drain not draining and leaking around site - IR consulted. Recommend CT pelvis - CT pelvis shows decreased size of bilateral inguinal collections - urology c/s - recommend renal U/S, PVRs, ID and IR consults - c/s ID Penile cancer - follows with Dr. Maurer (urology) - s/p partial penectomy and 03/06/24 b/l RAIL. - surveillance Complexity. Hyponatremia - Secondary to fluid shifts. Monitor. Hypomagnesemia - Continue to monitor and replete. Any conditions listed below are present on admission unless otherwise specified. . There is no height or weight on file to calculate BMI. CHRONIC PROBLEMS T2DM - hold home metformin - SSI DVT/PE - incidental finding during previous admission on 04/09 - hold home xarelto and start heparin for any inpatient procedures HTN/HLD - hold home lisinopril - cont home amlodipine, metoprolol, rosuvastatin DVT prophylaxis: hep gtt Diet: DIET CARB CONTROLLED DIET NPO with meds Continuous Infusions: Code Status: Full Code Serious Illness Conversation: Disposition: The patient will require continued hospitalization for KEYONNA, drain malfunction. They are expected to discharge to home . Today they are expected to be medically ready for discharge on Follow-ups made: Follow-ups needed: LYLE Medrano is a 58 y.o. male with a PMH of afib, DVT, HTN, HLD, T2DM, and penile cancer who was a admitted for c/o of left inguinal drain not draining and KEYONNA. PT was admitted in March for IR drain of groin/thigh collection and admitted again on 04/09 for IR drain of left inguinal fluid collection who presented to the [facility] for evaluation of ROSA MARIA drain complication. Patient reports he noticed over the weekend his ROSA MARIA bulb was not staying primed at home and draining from the insertion site and the output in the bulb was minimal. Work up in the [facility] significant for; VSS. Glucose 162, Na 134, CR 3.94, Mg 1.5, Hgb 10.3, CT pelvis shows decreased size of bilateral inguinal collections. ID, urology, IR and nephrology were all consulted. On admission, pt is alert and oriented x 4. Denies pain. C/o intermittent nausea. Denies fevers, chills, chest pain, sob, cough, abd pain, vomiting, diarrhea, constipation, dysuria, hematuria, hematochezia, melena, focal weakness, edema. Review of Systems Constitutional: No fever, chills, weight changes Eyes: No vision changes ENT: No ringing, loss of hearing Cardiovascular: No LE edema, leg pain with walking, PND, Orthopnea Respiratory: No cough, SOB Gastrointestinal: No abd pain, constipation, diarrhea + nausea Genitourinary: No dysuria, gross hematuria Integumentary: No rash Musculoskeletal: No joint deformity, joint pains +no output from left inguinal drain. Draining from site Lymph/Heme: No swellings in cervical, supraclavicular, axillary or inguinal lymph node bearing areas. Psychiatric: No depressed mood ONCOLOGY HISTORY Oncology History No history exists. HISTORY Past Medical History: Diagnosis Date Diabetes mellitus Essential hypertension, benign Hyperlipidemia Melanoma left rib cage Penile ca Pulmonary embolism Past Surgical History: Procedure Laterality Date DRAINAGE SOFT TISSUE PERCUTANEOUS W/ IMAGE GUIDANCE Left 04/10/2024 Laterality: Left; Surgeon: Michelle Whitaker MD; Location: [facility] (VIR) DRAINAGE SOFT TISSUE PERCUTANEOUS W/ IMAGE GUIDANCE N/A 03/20/2024 Laterality: N/A; Surgeon: Kisha Quarles DO; Location: [facility] INTERVENTIONAL RADIOLOGY (VIR) LYMPHADENECTOMY INGUINOFEMORAL ROBOTIC Bilateral 03/05/2024 Laterality: Bilateral; Surgeon: Izaiah Maurer MD; Location: [facility] MAIN OR AMPUTATION PENIS PARTIAL N/A 01/22/2024 Laterality: N/A; Surgeon: Izaiah Maurer MD; Location: [facility] OSC PERIOP ACL RECONSTRUCTION BACK SURGERY FOOT SURGERY Bilateral reconstructive OTHER SURGICAL Right undescended testicle VASECTOMY Family History His family history includes Aneurysm in his father; Cancer- Other in his father; Lung Cancer in his maternal grandmother. Social History He reports that he has quit smoking. His smoking use included cigarettes. He has quit using smokeless tobacco. His smokeless tobacco use included chew. He reports current alcohol use of about 4.0 standard drinks of alcohol per week. He reports that he does not use drugs. MEDICATIONS / ALLERGIES Prior to Admission Medications Prescriptions Last Dose Informant Patient Reported? Taking? Acetaminophen 325 MG tablet No No Sig: Take 2 tablets by mouth every 4 hours as needed for Mild Pain for up to 10 days. Amoxicillin-clavulanate 875-125 MG tablet No No Sig: Take 1 tablet by mouth every 12 hours. Cholecalciferol (Vitamin D) 25 MCG (1000 UT) tablet Yes No Sig: Take 1 tablet by mouth daily. Ciprofloxacin 750 MG tablet No No Sig: Take 1 tablet by mouth 2 times daily. Continuous Glucose Sensor (FreeStyle Rhonda 3 Sensor) Misc No No Sig: Apply 1 Each topically every 14 days. Elastic Bandages & Supports (Medical Compression Stockings) Mis No No Si Each by Unknown route daily. Insulin Pen Needle (Pen [place]) 32G X 4 MM Misc No No Sig: Use new needle for each insulin injection. Isavuconazonium (Cresemba) 186 MG capsule No No Sig: Please take 2 capsules by mouth every 8 hours for 6 doses, then take 2 capsules every 24 hours for a total of 6 weeks. Metoprolol succinate 50 MG tablet XL Yes No Sig: Take 1 tablet by mouth daily. Ondansetron 4 MG tablet No No Sig: Take 1 tablet by mouth every 8 hours as needed for Nausea / Vomiting. Rosuvastatin 10 MG tablet Yes No Sig: Take 1 tablet by mouth daily. Tamsulosin HCl 0.4 MG capsule No No Sig: Take 1 capsule by mouth daily Turmeric (QC TUMERIC COMPLEX PO) Yes No Sig: Take by mouth. Xarelto 20 MG tablet No No Sig: Take 1 tablet by mouth daily with dinner. You may resume taking this medication as previously prescribed after discharge. For refills contact Dr. Juarez. amLODIPine 5 MG tablet Yes No Sig: Take 1 tablet by mouth daily. cyanocobalamin 100 MCG tablet Yes No Sig: Take 1 tablet by mouth daily. insulin aspart (NovoLOG FlexPen) 100 UNIT/ML Solution Pen-injector injection No No Sig: Inject under the skin before meals & at bedtime as directed. Please administer 4 units for small meals and 6 units for large meals. Max daily dose of 18 units. lisinopril 30 MG tablet Yes No Sig: Take 1 tablet by mouth daily. metFORMIN-XR 500 MG Tab SR 24 HR Yes No Sig: Take 1 tablet by mouth 2 times daily. omega-3 acid ethyl esters 1 g capsule Yes No Sig: Take 2 capsules by mouth 2 times daily. Facility-Administered Medications: None No Known Allergies OBJECTIVE Temp: [97.9 F (36.6 C)-98.3 F (36.8 C)] 98.3 F (36.8 C) Pulse (Heart Rate): [73-96] 96 Resp Rate: [15-20] 15 BP: (105-144)/(65-67) 144/67 O2 Sat (%): [99 %] 99 % General: A&O to self, time, place, and situation. NAD. HEENT: EOMI, anicteric sclerae, conjunctivae & lids symmetrical. No signs of inflammation. Neck no rigidity. Not MORONGO. MMM, no erythema, exudates, or lesions. Dentition intact. Respiratory: Clear to auscultation bilaterally, no crackles/rhonchi/wheezes, no increased WOB. Cardiovascular: RRR, no murmurs, rubs, clicks or gallops, no peripheral edema, cap refill brisk. Abdomen: Normoactive BS. Abdomen soft, nontender, nondistended. No palpable masses. Neurologic: CN II-XII intact. No focal deficits. Speech clear and coherent. Follows commands. Skin: Color, texture, and turgor normal. No rashes or lesions. Psychosocial: Affect appropriate LABORATORY DATA WBC/Hgb/Hct/Plts: 4.61/10.3/30.3/165 (04/20 1501) Bun/Creat/Cl/CO2/Glucose: 55/3.94/104/21/162 (04/20 1501) Na/K+/Phos/Mg/Ca: 134/4.5/4.2/1.5/8.8 (04/20 1501) DIAGNOSTICS IMAGING CT PELVIS WITHOUT CONTRAST Result Date: 04/20/2024 EXAM: CT PELVIS WITHOUT CONTRAST, 04/20/2024 17:07 PM COMPARISON: CT April 09, 2024 CLINICAL INDICATIONS: ; ROSA MARIA drain to left groin, hx of penile cancer, need to asses fluid status near drain site TECHNIQUE: CT scanning of the pelvis was performed without the administration of intravenous contrast. PROTOCOL: Standard. FINDINGS: GI: Visualized GI structures are unremarkable. Bladder: Bladder distends normally. Genital: The prostate and seminal vesicles are unremarkable. Adenopathy: No pelvic adenopathy is identified. Vascular: Atherosclerosis with normal caliber of the iliac arteries. Musculoskeletal: Interval decrease in size of the thick-walled right inguinal collection which contains a drain measuring 5.0 x 1.8 cm, previously 5.4 x 2.6 cm. The left inguinal collection has decreased in size following placement of a large-bore pigtail drain. This now measures 8.4 x 5.6 cm, previously 11.0 x 5.2 cm. The previously seen drain in the anterior mid thigh has been removed in the interim. Degenerative changes of the osseous structures. No acute abnormality. IMPRESSION: Decreased size of the bilateral inguinal collections. NAGE SOFT TISSUE PERCUTANEOUS W/ IMAGE GUIDANCE Result Date: 04/14/2024 EXAM: IR DRAINAGE SOFT TISSUE PERCUTANEOUS W/ IMAGE GUIDANCE , 04/10/2024 16:16 PM COMPARISON: CT abdomen/pelvis dated April 09, 2024 CLINICAL INDICATIONS: 58-year-old man with history of bilateral robotic inguinal femoral lymphadenectomy with bilateral inguinal fluid collections, managed with right sided inguinal collection drain which has since been removed. Recent CT imaging shows enlargement of left inguinal fluid collection. He presents to interventional radiology for left-sided inguinal fluid collection drain placement. OPERATORS: Michelle Whitaker MD (attending), Dalton Garcia MD (resident) PROCEDURE/TECHNIQUE: Consent: Written, informed consent was obtained after explaining the procedure to the patient, including benefits and risks, and answering the patient's questions. Moderate Sedation: I performed Moderate Sedation which included the presence of a nurse that assisted in monitoring the patients level of consciousness and physiological status. After administration of Fentanyl and Versed, I spent 19 minutes of continuous [id number] time with the patient. Position: The patient was transferred to the IR laboratory and positioned supine on the procedure table. The left groin was prepared and draped using maximum sterile barrier technique. This consisted of cap, mask, hand hygiene, sterile gown, sterile gloves, cutaneous antisepsis, and occlusive sterile draping of the field. Time Out: A time out was performed prior to the procedure in the presence of the patient and all personnel involved in the case. The patient's identity, procedure type, procedure side/site, and allergies were verified. Procedure/Findings: Images of the target were saved to the image archive system. Initial sonographic images were obtained demonstrating large multiloculated left inguinal fluid collection. A Solasta centesis needle was advanced using ultrasound guidance into the collection. Approximately 10 mL of serous fluid was aspirated from the lesion and sent to the laboratory for culture. A guidewire was then passed through the needle and the tract was dilated over the wire. A 12 Guatemalan M drain with custom modified additional sideholes was then placed over the wire, and additional images were obtained to confirm positioning of the catheter within the collection. The catheter was sutured to the skin with a single stitch, and connected to a ROSA MARIA bulb. A total of 200 ml was drained by the time the patient left the department. Post-Procedure: Post-procedure images demonstrate the pigtail of the catheter within the collection. The patient tolerated the procedure well, with no immediate complications. IMPRESSION: Status post drainage of left inguinal fluid collection. Michelle Whitaker MD was in the room and participated during all cannon portions of this procedure. I personally viewed and interpreted these images and I have reviewed and approved this report. ABDOMEN/PELVIS WITH CONTRAST Result Date: 04/09/2024 EXAM: CT ABDOMEN/PELVIS WITH CONTRAST, 04/09/2024 16:21 PM COMPARISON: Prior exams including CT pelvis March 18, [address] abdomen/pelvis March 16, 2024 CLINICAL INDICATIONS: right groin swelling, fever, s/p B/L inguinofemoral lymphadenectomy on 03/05/[address] AP TO KNEES; TECHNIQUE: CT scanning was performed of the abdomen and pelvis following the administration of intravenous contrast. PROTOCOL: Standard. CONTRAST: iohexol (OMNIPAQUE) 350 MG/ML injection 1-171 mL; Route of Administration: Intravenous; Dose: 110 mL. FINDINGS: Lung Bases: Minimal curvilinear bibasilar atelectasis. Multivessel coronary artery calcifications. Filling defect consistent with pulmonary embolus in a right lower lobe subsegmental artery. Liver: Normal. Gallbladder: Normal. Bile Ducts: Normal in caliber. Spleen: Normal. Pancreas: Normal. Adrenals: Normal. Right Kidney: Normal. No hydronephrosis. Left Kidney: Normal. No hydronephrosis. Gastrointestinal: Normal bowel caliber and wall thickness. Colonic diverticula. Peritoneum/retroperitoneum: No ascites. Unchanged partially calcified nodules in the pelvis (axial image 156), possible sequela of prior fat necrosis or epiploic appendagitis. Lymph nodes: No enlarged or morphologically abnormal lymph nodes. Vasculature: The abdominal aorta is normal in course and caliber. Patent celiac and superior mesenteric arteries. Patent portal, splenic, and superior mesenteric veins. Bladder: Normal. Pelvic Organs: No appreciable abnormality of the prostate. Mild subcutaneous soft tissue edema in the scrotum. Body Wall: Postoperative changes from prior bilateral inguinal lymph node dissection with persistent thick-walled collection in the right inguinal region measuring up to 5.4 x 2.6 cm (axial image 188), presumably 4.2 x 3.9 cm. There is a drain traversing this region. Increased size of a thick-walled left inguinal collection measuring up to 11.0 x 5.2 x 14.7 cm (axial image 192 and sagittal image 134), previously 5.3 x 3.4 cm in axial dimensions. A portion of this collections extends inferiorly and laterally over the anteromedial left thigh. There is a drain in the anterior left thigh soft tissues which does not traverse the collection. Some portions of these bilateral collections have minimally greater than simple fluid attenuation. No associated gas or subcutaneous emphysema. Bones: Multilevel spinal degenerative changes.. No aggressive lesion. IMPRESSION: 1. Incidental new pulmonary embolus in a right lower lobe segmental artery. 2. Persistent bilateral inguinal collections, significantly increased in size on the left. These collections now demonstrate a thick peripheral wall which may reflect superimposed infection given the clinical context. Right inguinal drain in place. A drain in the left thyroid does not significantly traverse the left inguinal collection. I, Yvonne Merino MD have discussed the critical finding/s of pulmonary embolus and bilateral inguinal collections with JC YANES on 04/09/2024 5:11 PM. Pt will be discussed with attending and cancer medicine team in Megan Grace APRN-CHUCK Pager: [phone] The provider may be reached from 7p-7a at pager listed above. After these hours please page the day provider listed under Q genda. [facility] 04-20-2024 History and physical note CANCER MEDICINE ADMISSION H&P TODAY'S DATE: 04/20/2024 ADMIT DATE: 04/20/2024 2:17 PM REASON FOR ADMISSION: inguinal drain malfunction and KEYONNA Primary Oncologist: Sydney (urology) ASSESSMENT AND PLAN Melodie Medrano is a 58 y.o. male with a PMH of afib, DVT, HTN, HLD, T2DM, and penile cancer who was a admitted for c/o of left inguinal drain not draining and KEYONNA. ACUTE PROBLEMS KEYONNA - CR 3.94 in ED (last 1.20 on 04/14) - renal ultrasound ordered in [facility] - will give 1L fluid bolus - check urine lytes/osmo - nephrology c/s in [facility] - daily chem Inguinal drain malfunction Bilateral inguinal fluid collections - Admitted 03/16 for IR drain on 03/20 of right groin/thigh collection - Admitted 04/09 for IR drain on 04/10 of left inguinal collection - Admitted 04/12-04/13 for antifungals given Mucro sp on drain culture per ID and was discharged on Isavuconazole and augmentin and cipro for 6 weeks. EOT 05/25. - pt reports left drain not draining and leaking around site - IR consulted. Recommend CT pelvis - CT pelvis shows decreased size of bilateral inguinal collections - urology c/s - recommend renal U/S, PVRs, ID and IR consults - c/s ID Penile cancer - follows with Dr. Maurer (urology) - s/p partial penectomy and 03/06/24 b/l RAIL. - surveillance Complexity. Hyponatremia - Secondary to fluid shifts. Monitor. Hypomagnesemia - Continue to monitor and replete. Any conditions listed below are present on admission unless otherwise specified. . There is no height or weight on file to calculate BMI. CHRONIC PROBLEMS T2DM - hold home metformin - SSI DVT/PE - incidental finding during previous admission on 04/09 - hold home xarelto and start heparin for any inpatient procedures HTN/HLD - hold home lisinopril - cont home amlodipine, metoprolol, rosuvastatin DVT prophylaxis: hep gtt Diet: DIET CARB CONTROLLED DIET NPO with meds Continuous Infusions: Code Status: Full Code Serious Illness Conversation: Disposition: The patient will require continued hospitalization for KEYONNA, drain malfunction. They are expected to discharge to home . Today they are expected to be medically ready for discharge on Follow-ups made: Follow-ups needed: LYLE Medrano is a 58 y.o. male with a PMH of afib, DVT, HTN, HLD, T2DM, and penile cancer who was a admitted for c/o of left inguinal drain not draining and KEYONNA. PT was admitted in March for IR drain of groin/thigh collection and admitted again on 04/09 for IR drain of left inguinal fluid collection who presented to the [facility] for evaluation of ROSA MARIA drain complication. Patient reports he noticed over the weekend his ROSA MARIA bulb was not staying primed at home and draining from the insertion site and the output in the bulb was minimal. Work up in the [facility] significant for; VSS. Glucose 162, Na 134, CR 3.94, Mg 1.5, Hgb 10.3, CT pelvis shows decreased size of bilateral inguinal collections. ID, urology, IR and nephrology were all consulted. On admission, pt is alert and oriented x 4. Denies pain. C/o intermittent nausea. Denies fevers, chills, chest pain, sob, cough, abd pain, vomiting, diarrhea, constipation, dysuria, hematuria, hematochezia, melena, focal weakness, edema. Review of Systems Constitutional: No fever, chills, weight changes Eyes: No vision changes ENT: No ringing, loss of hearing Cardiovascular: No LE edema, leg pain with walking, PND, Orthopnea Respiratory: No cough, SOB Gastrointestinal: No abd pain, constipation, diarrhea + nausea Genitourinary: No dysuria, gross hematuria Integumentary: No rash Musculoskeletal: No joint deformity, joint pains +no output from left inguinal drain. Draining from site Lymph/Heme: No swellings in cervical, supraclavicular, axillary or inguinal lymph node bearing areas. Psychiatric: No depressed mood ONCOLOGY HISTORY Oncology History No history exists. HISTORY Past Medical History: Diagnosis Date Diabetes mellitus Essential hypertension, benign Hyperlipidemia Melanoma left rib cage Penile ca Pulmonary embolism Past Surgical History: Procedure Laterality Date DRAINAGE SOFT TISSUE PERCUTANEOUS W/ IMAGE GUIDANCE Left 04/10/2024 Laterality: Left; Surgeon: Michelle Whitaker MD; Location: [facility] INTERVENTIONAL RADIOLOGY (VIR) DRAINAGE SOFT TISSUE PERCUTANEOUS W/ IMAGE GUIDANCE N/A 03/20/2024 Laterality: N/A; Surgeon: Kisha Quarles DO; Location: [facility] INTERVENTIONAL RADIOLOGY (VIR) LYMPHADENECTOMY INGUINOFEMORAL ROBOTIC Bilateral 03/05/2024 Laterality: Bilateral; Surgeon: Izaiah Maurer MD; Location: [facility] MAIN OR AMPUTATION PENIS PARTIAL N/A 01/22/2024 Laterality: N/A; Surgeon: Izaiah Maurer MD; Location: [facility] OSC PERIOP ACL RECONSTRUCTION BACK SURGERY FOOT SURGERY Bilateral reconstructive OTHER SURGICAL Right undescended testicle VASECTOMY Family History His family history includes Aneurysm in his father; Cancer- Other in his father; Lung Cancer in his maternal grandmother. Social History He reports that he has quit smoking. His smoking use included cigarettes. He has quit using smokeless tobacco. His smokeless tobacco use included chew. He reports current alcohol use of about 4.0 standard drinks of alcohol per week. He reports that he does not use drugs. MEDICATIONS / ALLERGIES Prior to Admission Medications Prescriptions Last Dose Informant Patient Reported? Taking? Acetaminophen 325 MG tablet No No Sig: Take 2 tablets by mouth every 4 hours as needed for Mild Pain for up to 10 days. Amoxicillin-clavulanate 875-125 MG tablet No No Sig: Take 1 tablet by mouth every 12 hours. Cholecalciferol (Vitamin D) 25 MCG (1000 UT) tablet Yes No Sig: Take 1 tablet by mouth daily. Ciprofloxacin 750 MG tablet No No Sig: Take 1 tablet by mouth 2 times daily. Continuous Glucose Sensor (FreeStyle Rhonda 3 Sensor) [facility] No No Sig: Apply 1 Each topically every 14 days. Elastic Bandages & Supports (Medical Compression Stockings) [facility] No No Si Each by Unknown route daily. Insulin Pen Needle (Pen [place]) 32G X 4 MM [facility] No No Sig: Use new needle for each insulin injection. Isavuconazonium (Cresemba) 186 MG capsule No No Sig: Please take 2 capsules by mouth every 8 hours for 6 doses, then take 2 capsules every 24 hours for a total of 6 weeks. Metoprolol succinate 50 MG tablet XL Yes No Sig: Take 1 tablet by mouth daily. Ondansetron 4 MG tablet No No Sig: Take 1 tablet by mouth every 8 hours as needed for Nausea / Vomiting. Rosuvastatin 10 MG tablet Yes No Sig: Take 1 tablet by mouth daily. Tamsulosin HCl 0.4 MG capsule No No Sig: Take 1 capsule by mouth daily Turmeric (QC TUMERIC COMPLEX PO) Yes No Sig: Take by mouth. Xarelto 20 MG tablet No No Sig: Take 1 tablet by mouth daily with dinner. You may resume taking this medication as previously prescribed after discharge. For refills contact Dr. Juarez. amLODIPine 5 MG tablet Yes No Sig: Take 1 tablet by mouth daily. cyanocobalamin 100 MCG tablet Yes No Sig: Take 1 tablet by mouth daily. insulin aspart (NovoLOG FlexPen) 100 UNIT/ML Solution Pen-injector injection No No Sig: Inject under the skin before meals & at bedtime as directed. Please administer 4 units for small meals and 6 units for large meals. Max daily dose of 18 units. lisinopril 30 MG tablet Yes No Sig: Take 1 tablet by mouth daily. metFORMIN-XR 500 MG Tab SR 24 HR Yes No Sig: Take 1 tablet by mouth 2 times daily. omega-3 acid ethyl esters 1 g capsule Yes No Sig: Take 2 capsules by mouth 2 times daily. Facility-Administered Medications: None No Known Allergies OBJECTIVE Temp: [97.9 F (36.6 C)-98.3 F (36.8 C)] 98.3 F (36.8 C) Pulse (Heart Rate): [73-96] 96 Resp Rate: [15-20] 15 BP: (105-144)/(65-67) 144/67 O2 Sat (%): [99 %] 99 % General: A&O to self, time, place, and situation. NAD. HEENT: EOMI, anicteric sclerae, conjunctivae & lids symmetrical. No signs of inflammation. Neck no rigidity. Not MORONGO. MMM, no erythema, exudates, or lesions. Dentition intact. Respiratory: Clear to auscultation bilaterally, no crackles/rhonchi/wheezes, no increased WOB. Cardiovascular: RRR, no murmurs, rubs, clicks or gallops, no peripheral edema, cap refill brisk. Abdomen: Normoactive BS. Abdomen soft, nontender, nondistended. No palpable masses. Neurologic: CN II-XII intact. No focal deficits. Speech clear and coherent. Follows commands. Skin: Color, texture, and turgor normal. No rashes or lesions. Psychosocial: Affect appropriate LABORATORY DATA WBC/Hgb/Hct/Plts: 4.61/10.3/30.3/165 (04/20 1501) Bun/Creat/Cl/CO2/Glucose: 55/3.94/104/21/162 (04/20 1501) Na/K+/Phos/Mg/Ca: 134/4.5/4.2/1.5/8.8 (04/20 1501) DIAGNOSTICS IMAGING CT PELVIS WITHOUT CONTRAST Result Date: 04/20/2024 EXAM: CT PELVIS WITHOUT CONTRAST, 04/20/2024 17:07 PM COMPARISON: CT April 09, 2024 CLINICAL INDICATIONS: ; ROSA MARIA drain to left groin, hx of penile cancer, need to asses fluid status near drain site TECHNIQUE: CT scanning of the pelvis was performed without the administration of intravenous contrast. PROTOCOL: Standard. FINDINGS: GI: Visualized GI structures are unremarkable. Bladder: Bladder distends normally. Genital: The prostate and seminal vesicles are unremarkable. Adenopathy: No pelvic adenopathy is identified. Vascular: Atherosclerosis with normal caliber of the iliac arteries. Musculoskeletal: Interval decrease in size of the thick-walled right inguinal collection which contains a drain measuring 5.0 x 1.8 cm, previously 5.4 x 2.6 cm. The left inguinal collection has decreased in size following placement of a large-bore pigtail drain. This now measures 8.4 x 5.6 cm, previously 11.0 x 5.2 cm. The previously seen drain in the anterior mid thigh has been removed in the interim. Degenerative changes of the osseous structures. No acute abnormality. IMPRESSION: Decreased size of the bilateral inguinal collections. NAGE SOFT TISSUE PERCUTANEOUS W/ IMAGE GUIDANCE Result Date: 04/14/2024 EXAM: IR DRAINAGE SOFT TISSUE PERCUTANEOUS W/ IMAGE GUIDANCE , 04/10/2024 16:16 PM COMPARISON: CT abdomen/pelvis dated April 09, 2024 CLINICAL INDICATIONS: 58-year-old man with history of bilateral robotic inguinal femoral lymphadenectomy with bilateral inguinal fluid collections, managed with right sided inguinal collection drain which has since been removed. Recent CT imaging shows enlargement of left inguinal fluid collection. He presents to interventional radiology for left-sided inguinal fluid collection drain placement. OPERATORS: Michelle Whitaker MD (attending), Dalton Garcia MD (resident) PROCEDURE/TECHNIQUE: Consent: Written, informed consent was obtained after explaining the procedure to the patient, including benefits and risks, and answering the patient's questions. Moderate Sedation: I performed Moderate Sedation which included the presence of a nurse that assisted in monitoring the patients level of consciousness and physiological status. After administration of Fentanyl and Versed, I spent 19 minutes of continuous [id number] time with the patient. Position: The patient was transferred to the IR laboratory and positioned supine on the procedure table. The left groin was prepared and draped using maximum sterile barrier technique. This consisted of cap, mask, hand hygiene, sterile gown, sterile gloves, cutaneous antisepsis, and occlusive sterile draping of the field. Time Out: A time out was performed prior to the procedure in the presence of the patient and all personnel involved in the case. The patient's identity, procedure type, procedure side/site, and allergies were verified. Procedure/Findings: Images of the target were saved to the image archive system. Initial sonographic images were obtained demonstrating large multiloculated left inguinal fluid collection. A Solasta centesis needle was advanced using ultrasound guidance into the collection. Approximately 10 mL of serous fluid was aspirated from the lesion and sent to the laboratory for culture. A guidewire was then passed through the needle and the tract was dilated over the wire. A 12 Guatemalan M drain with custom modified additional sideholes was then placed over the wire, and additional images were obtained to confirm positioning of the catheter within the collection. The catheter was sutured to the skin with a single stitch, and connected to a ROSA MARIA bulb. A total of 200 ml was drained by the time the patient left the department. Post-Procedure: Post-procedure images demonstrate the pigtail of the catheter within the collection. The patient tolerated the procedure well, with no immediate complications. IMPRESSION: Status post drainage of left inguinal fluid collection. Michelle Whitaker MD was in the room and participated during all cannon portions of this procedure. I personally viewed and interpreted these images and I have reviewed and approved this report. ABDOMEN/PELVIS WITH CONTRAST Result Date: 04/09/2024 EXAM: CT ABDOMEN/PELVIS WITH CONTRAST, 04/09/2024 16:21 PM COMPARISON: Prior exams including CT pelvis March 18, [address] abdomen/pelvis March 16, 2024 CLINICAL INDICATIONS: right groin swelling, fever, s/p B/L inguinofemoral lymphadenectomy on 03/05/[address] AP TO KNEES; TECHNIQUE: CT scanning was performed of the abdomen and pelvis following the administration of intravenous contrast. PROTOCOL: Standard. CONTRAST: iohexol (OMNIPAQUE) 350 MG/ML injection 1-171 mL; Route of Administration: Intravenous; Dose: 110 mL. FINDINGS: Lung Bases: Minimal curvilinear bibasilar atelectasis. Multivessel coronary artery calcifications. Filling defect consistent with pulmonary embolus in a right lower lobe subsegmental artery. Liver: Normal. Gallbladder: Normal. Bile Ducts: Normal in caliber. Spleen: Normal. Pancreas: Normal. Adrenals: Normal. Right Kidney: Normal. No hydronephrosis. Left Kidney: Normal. No hydronephrosis. Gastrointestinal: Normal bowel caliber and wall thickness. Colonic diverticula. Peritoneum/retroperitoneum: No ascites. Unchanged partially calcified nodules in the pelvis (axial image 156), possible sequela of prior fat necrosis or epiploic appendagitis. Lymph nodes: No enlarged or morphologically abnormal lymph nodes. Vasculature: The abdominal aorta is normal in course and caliber. Patent celiac and superior mesenteric arteries. Patent portal, splenic, and superior mesenteric veins. Bladder: Normal. Pelvic Organs: No appreciable abnormality of the prostate. Mild subcutaneous soft tissue edema in the scrotum. Body Wall: Postoperative changes from prior bilateral inguinal lymph node dissection with persistent thick-walled collection in the right inguinal region measuring up to 5.4 x 2.6 cm (axial image 188), presumably 4.2 x 3.9 cm. There is a drain traversing this region. Increased size of a thick-walled left inguinal collection measuring up to 11.0 x 5.2 x 14.7 cm (axial image 192 and sagittal image 134), previously 5.3 x 3.4 cm in axial dimensions. A portion of this collections extends inferiorly and laterally over the anteromedial left thigh. There is a drain in the anterior left thigh soft tissues which does not traverse the collection. Some portions of these bilateral collections have minimally greater than simple fluid attenuation. No associated gas or subcutaneous emphysema. Bones: Multilevel spinal degenerative changes.. No aggressive lesion. IMPRESSION: 1. Incidental new pulmonary embolus in a right lower lobe segmental artery. 2. Persistent bilateral inguinal collections, significantly increased in size on the left. These collections now demonstrate a thick peripheral wall which may reflect superimposed infection given the clinical context. Right inguinal drain in place. A drain in the left thyroid does not significantly traverse the left inguinal collection. I, Yvonne Merino MD have discussed the critical finding/s of pulmonary embolus and bilateral inguinal collections with JC YANES on 04/09/2024 5:11 PM. Pt will be discussed with attending and cancer medicine team in Megan Grace APRN-CHUCK Pager: [phone] The provider may be reached from 7p-7a at pager listed above. After these hours please page the day provider listed under Q bradley. documented in this encounter [facility] 04-20-2024 Emergency department Note Pt reports to [facility] c/o ROSA MARIA drain on L groin leaking since Wednesday 04/18. This drain was placed when pt was recently admitted for an infection of another drain in L thigh/knee that was removed during this admission. [facility] 04-20-2024 Emergency department Note Bed: [facility] Expected date: 04/20/24 Expected time: 2:30 PM Means of arrival: Comments: [facility] 04-14-2024 Plan of care note Discharge instructions reviewed with patient and his spouse and questions answered. 2 IV's removed. Stable for discharge. Will be escorted per staff via wheelchair. picking up meds from [facility] pharmacy and supplies given for dressing changes. Problem: Adult Inpatient Plan of Care Goal: Plan of Care Review Outcome: Adequate for Discharge Goal: Patient-Specific Goal (Individualized) Outcome: Adequate for Discharge Goal: Absence of Hospital-Acquired Illness or Injury Outcome: Adequate for Discharge Goal: Optimal Comfort and Wellbeing Outcome: Adequate for Discharge Goal: Readiness for Transition of Care Outcome: Adequate for Discharge [facility] 04-14-2024 Miscellaneous Notes Discharge instructions reviewed with patient and his spouse and questions answered. 2 IV's removed. Stable for discharge. Will be escorted per staff via wheelchair. picking up meds from [facility] pharmacy and supplies given for dressing changes. Problem: Adult Inpatient Plan of Care Goal: Plan of Care Review Outcome: Adequate for Discharge Goal: Patient-Specific Goal (Individualized) Outcome: Adequate for Discharge Goal: Absence of Hospital-Acquired Illness or Injury Outcome: Adequate for Discharge Goal: Optimal Comfort and Wellbeing Outcome: Adequate for Discharge Goal: Readiness for Transition of Care Outcome: Adequate for Discharge 04/14/24 1314 Final Discharge Planning Discharge Disposition Home Services at Discharge Wound/drain CM/SW AVS Portion Completed Yes Additional Community Agency Name(s) no Plan Plan planning for discharge to home today with family support. Patient/Family In Agreement With Plan yes Plan Comments see notes. Transport Request Mode of Transfer Private Vehicle [facility] Inpatient PCRM Discharge Note Patient discussed in medical rounds for discharge to home today on oral antibiotics. PCRM met with the patient/spouse to discuss final discharge plan. Services for Discharge Planning for discharge to home today with family support. The patient has been provided with signed labs orders and instructions to go to a local lab on (04/16) and Weekly, starting Saturday, 04/20. Results will faxed to ID. Consults with Final Discharge Recommendations Infectious Disease- Diagnosis: Skin and Soft Tissue Infection (SSTI) Post-operative pelvic fluid collections with polymicrobial culture growth including Mucor from L drain - Grew from old drain in the L inguinal area, this drain isnt really having output since it was put in per pt. He is afebrile and HDS. Old drain has been removed since this AM. IR obtained cultures while putting new drain in the L groin, no growth on bacterial culture and fungal cultures are pending. Polymicrobial drain cx: taken from old drains PsA, E faecalis, and Strept viridans - Oral Antibiotics: Ciprofloxacin 750 mg PO every 12 hours Amoxicillin-Clavulanate 875-125 mg PO every 12 hours Isavuconazole 372 mg PO every 8 hours x 6 doses, then 372 mg PO every 24 hours Duration of Therapy: Total Duration of therapy: 6 weeks Other: Ciprofloxacin - Start Date: 04/11/24; Stop Date: 05/25/24 (tentative) Other: Amoxicillin-Clavulanate - Start Date: 04/11/24; Stop Date: 05/25/24 (tentative) Other: Isavuconazole - Start Date: 04/12/24; Stop Date: 05/25/24 (tentative) Does Patient Need Oral Antibiotic Therapy at the End of Parenteral Therapy: N/A OPAT ID Providers: (ID Attending): Dr. Adryan Velazquez (ID Fellow): Dr. Isa Mao Labs: Please have the Home Care Company or Extended Care Facility obtain the following labs while on the above antibiotics and fax results to [phone], attention (ID Attending): Dr. Adryan Velazquez and (ID Fellow): Dr. Isa Mao - Chem-6 (Including serum creatinine) without Glucose every Saturday - CBC with differential every Saturday - Hepatic Function Panel every Saturday Imaging: Yes: Prior to discharge, the patient should have CT-A/P with IV contrast to be scheduled on 05/11/24 (prior to ID Appointment on 05/19/2024)) Follow-up: Yes - Patient should follow-up in the ID Clinic (Please ensure patient is enrolled in [facility] prior to discharge) Central Access: Can Central Access be removed at the end of therapy: NA Additional Notes: Please notify ID Team 1 of any new positive culture results from those that are still pending Final duration of antimicrobial therapy to be determined based on clinical and radiographic follow-up Patient should follow-up in the [facility] with Dr. Lilo Mao on 05/19/2024 at 9 AM Endocrinology-The patient will discharge to home on new insulin; short term prescriptions sent to the [facility] pharmacy. Order for hospital educator placed and the patient will all to schedule a follow up with his PCP next week. Lines/Tubes/Drains/Wounds/Supplie s ROSA MARIA drain x 1 Fluid Collection Drain The patient is aware to contact Dr. Maurer's office when there is 30 cc or less over a 24 hour period. Medications No barriers anticipated in obtaining discharge medications. No prior authorizations anticipated. Reconciliation of medications to be completed by the medical team. EDMUNDO completed and approved for Cresemba; co-pay $0. This medication is filled at the [facility] pharmacy. The patient will discharge to home on new insulin; short term prescriptions sent to the [facility] pharmacy. Durable Medical Equipment No new needs anticipated; the patient is up moving around independently. Choice Was Patient Choice Provided: N/A Transportation Transportation will be provided by spouse. Education Discharge education provided by the medical team and updated in the After Visit Summary. Insulin and drain care education will need provided prior to discharge. Follow Up(s) Any follow up requested by the medical team arranged. Appointments in the After Visit Summary. Future Appointments Date Time Provider Department Center 05/08/2024 1:15 PM MD ROE Kerr JOCW 05/11/2024 3:30 PM [facility] CT, [facility] ILCCTD CPLEWIS 05/19/2024 9:00 AM INFECTIOUS DISEASE FELLOW 6, [facility] MCCINF NAYAN Juarez, DO [address] [facility] [phone] Call Please call to make an appoint with PCP for next week for further insulin titration. Bring log with you on glood glucose level checks. LAB WORK EVERY SATURDAY Follow up on 04/20/2024 Please arrive every Saturday at your local hospital/lab for blood work. Results will need faxed to ID at [phone] LAB WORK Follow up on 04/16/2024 Please arrive on , 04/16/24 at your local hospital/lab for blood work. Results will need faxed to ID at [phone] ACO Patient: No Was Ambulatory PCRM added to the Care Team? Yes- Handoff criteria met/ACO Patient Was a handoff made to an Ambulatory PCRM? Yes Referral completed and sent to [facility], phone number [phone]. The PCRM and medical team has updated the patient's nurse, Lissa regarding the final discharge plan. Risk of Readmission: 9.8 Category Reference: Low: 0% - 5% Medium - Low: 5.1% - 10% Medium - High: 10.1% - 16% High: 16.1% - 100% Readmission Risk Interventions Documented: Yes No other discharge needs have been identified at this time. This plan was developed in collaboration with the patient and caregiver/preferred decision maker. Patient and family are in agreement with final discharge plan. Please refer to AVS and medical record for additional information. Patient instructed to call with questions. PCRM will continue to follow with medical team for any additional discharge planning needs. Deborah Neves, DEON, ACM-RN Patient Care Chef Teacher Pager# [phone] If any changes to this individualized plan of care during evening and weekend hours and assistance is needed, please page the director medical economics PCRM at [phone]. documented in this encounter [facility] 04-14-2024 Nurse Note 04/14/24 1314 Final Discharge Planning Discharge Disposition Home Services at Discharge Wound/drain CM/SW AVS Portion Completed Yes Additional Community Agency Name(s) no Plan Plan planning for discharge to home today with family support. Patient/Family In Agreement With Plan yes Plan Comments see notes. Transport Request Mode of Transfer Private Vehicle [facility] PCRM Discharge Note Patient discussed in medical rounds for discharge to home today on oral antibiotics. PCRM met with the patient/spouse to discuss final discharge plan. Services for Discharge Planning for discharge to home today with family support. The patient has been provided with signed labs orders and instructions to go to a local lab on (04/16) and Weekly, starting Saturday, 04/20. Results will faxed to ID. Consults with Final Discharge Recommendations Infectious Disease- Diagnosis: Skin and Soft Tissue Infection (SSTI) Post-operative pelvic fluid collections with polymicrobial culture growth including Mucor from L drain - Grew from old drain in the L inguinal area, this drain isnt really having output since it was put in per pt. He is afebrile and HDS. Old drain has been removed since this AM. IR obtained cultures while putting new drain in the L groin, no growth on bacterial culture and fungal cultures are pending. Polymicrobial drain cx: taken from old drains PsA, E faecalis, and Strept viridans - Oral Antibiotics: Ciprofloxacin 750 mg PO every 12 hours Amoxicillin-Clavulanate 875-125 mg PO every 12 hours Isavuconazole 372 mg PO every 8 hours x 6 doses, then 372 mg PO every 24 hours Duration of Therapy: Total Duration of therapy: 6 weeks Other: Ciprofloxacin - Start Date: 04/11/24; Stop Date: 05/25/24 (tentative) Other: Amoxicillin-Clavulanate - Start Date: 04/11/24; Stop Date: 05/25/24 (tentative) Other: Isavuconazole - Start Date: 04/12/24; Stop Date: 05/25/24 (tentative) Does Patient Need Oral Antibiotic Therapy at the End of Parenteral Therapy: N/A OPAT ID Providers: (ID Attending): Dr. Adryan Velazquez (ID Fellow): Dr. Isa Mao Labs: Please have the Home Care [facility] or Extended Care Facility obtain the following labs while on the above antibiotics and fax results to [phone], attention (ID Attending): Dr. Adryan Velazquez and (ID Fellow): Dr. Isa Mao - Chem-6 (Including serum creatinine) without Glucose every Saturday - CBC with differential every Saturday - Hepatic Function Panel every Saturday Imaging: Yes: Prior to discharge, the patient should have CT-A/P with IV contrast to be scheduled on 05/11/24 (prior to ID Appointment on 05/19/2024)) Follow-up: Yes - Patient should follow-up in the ID Clinic (Please ensure patient is enrolled in [place] prior to discharge) Central Access: Can Central Access be removed at the end of therapy: NA Additional Notes: Please notify ID Team 1 of any new positive culture results from those that are still pending Final duration of antimicrobial therapy to be determined based on clinical and radiographic follow-up Patient should follow-up in the [facility] with Dr. Lilo Mao on 05/19/2024 at 9 AM Endocrinology-The patient will discharge to home on new insulin; short term prescriptions sent to the [facility] pharmacy. Order for hospital educator placed and the patient will all to schedule a follow up with his PCP next week. Lines/Tubes/Drains/Wounds/Supplie s ROSA MARIA drain x 1 Fluid Collection Drain The patient is aware to contact Dr. Maurer's office when there is 30 cc or less over a 24 hour period. Medications No barriers anticipated in obtaining discharge medications. No prior authorizations anticipated. Reconciliation of medications to be completed by the medical team. PA completed and approved for Cresemba; co-pay $0. This medication is filled at the [facility] pharmacy. The patient will discharge to home on new insulin; short term prescriptions sent to the [facility] pharmacy. Durable Medical Equipment No new needs anticipated; the patient is up moving around independently. Choice Was Patient Choice Provided: N/A Transportation Transportation will be provided by spouse. Education Discharge education provided by the medical team and updated in the After Visit Summary. Insulin and drain care education will need provided prior to discharge. Follow Up(s) Any follow up requested by the medical team arranged. Appointments in the After Visit Summary. Future Appointments Date Time Provider Department Center 05/08/2024 1:15 PM MD ROE Kerr JOCW 05/11/2024 3:30 PM [facility] CT, [facility] IL[facility] CPLEWIS 05/19/2024 9:00 AM INFECTIOUS DISEASE FELLOW 6, [facility] MCCINF MCCLYNN Juarez, DO [address] [facility] [phone] Call Please call to make an appoint with PCP for next week for further insulin titration. Bring log with you on glood glucose level checks. LAB WORK EVERY SATURDAY Follow up on 04/20/2024 Please arrive every Saturday at your local hospital/lab for blood work. Results will need faxed to ID at [phone] LAB WORK Follow up on 04/16/2024 Please arrive on , 04/16/24 at your local hospital/lab for blood work. Results will need faxed to ID at [phone] ACO Patient: No Was Ambulatory PCRM added to the Care Team? Yes- Handoff criteria met/ACO Patient Was a handoff made to an Ambulatory PCRM? Yes Referral completed and sent to [facility], phone number [phone]. The PCRM and medical team has updated the patient's nurse, Lissa regarding the final discharge plan. Risk of Readmission: 9.8 Category Reference: Low: 0% - 5% Medium - Low: 5.1% - 10% Medium - High: 10.1% - 16% High: 16.1% - 100% Readmission Risk Interventions Documented: Yes No other discharge needs have been identified at this time. This plan was developed in collaboration with the patient and caregiver/preferred decision maker. Patient and family are in agreement with final discharge plan. Please refer to AVS and medical record for additional information. Patient instructed to call with questions. PCRM will continue to follow with medical team for any additional discharge planning needs. Deborah Neves, MSN, ACM-RN Patient Care Chef Teacher Pager# [phone] If any changes to this individualized plan of care during evening and weekend hours and assistance is needed, please page the director medical economics PCRM at [phone]. [facility] 04-14-2024 Hospital course Narrative Discharge Summary Name: Melodie Medrano Jr. Age: 58 y.o. Birthday: 1965 Admit Date: 04/12/2024 9:02 PM Discharge Date: 04/14/2024 Discharge Unit: Urology Admission Information Admitting Physician: Cyndy Panchal MD Discharge Information Discharge Physician: Dr. Maurer Problem List Active Hospital Problems Diagnosis Penile cancer Resolved Hospital Problems No resolved problems to display. Brief Summary of Hospital Course for Discharge Summary: Melodie Medrano Jr. is a 58 y.o. male with a history of DM, HTN, HLD, DVT/PE on Xarelto and melanoma who [facility]12 for Left ROSA MARIA culture +mucor requiring IV antifungal treatment per ID recommendation. Of note, PMHx pT3 penile cancer s/p partial penectomy and 03/06/24 b/l RAIL. Admitted 03/16 for IR drain on 03/20 of right groin/thigh collection. Admitted 04/09 for IR drain on 04/10 of left inguinal fluid collection and discharged home on oral augmentin and cipro x 10 day course. Upon recent admission, patient started on IV Zosyn and amphotericin. Left IR drain fungal cx obtained which shows NG day . Left ROSA MARIA drain removed 04/13/24 as no longer with much output. Patient remained inpatient overnight 04/13 for insurance approval of oral antifungal cresemba which finally came through 04/14. Patient followed closely by ID, outgoing recommendations: Ciprofloxacin - Start Date: 04/11/24; Stop Date: 05/25/24 (tentative) Amoxicillin-Clavulanate - Start Date: 04/11/24; Stop Date: 05/25/24 (tentative) Isavuconazole - Start Date: 04/12/24; Stop Date: 05/25/24 (tentative) CT-A/P with IV contrast to be scheduled on 05/11/24 (prior to ID Appointment on 05/19/2024)) Patient should follow-up in the [facility] with Dr. Lilo Mao on 05/19/2024 at 9 AM Chem-6 (Including serum creatinine) without Glucose every Saturday, CBC with differential every Saturday, Hepatic Function Panel every Saturday fax results to [phone], attention (ID Attending): Dr. Adryan Velazquez and (ID Fellow): Dr. Isa Mao Of note, Cr increased from 1.0 to 1.2 overnight. ID recommends BMP on 04/16 and faxed to ID. Patient blood glucoses remained elevated while inpatient. Endo consulted. Recommend patient start on lispro 4 units with small meals and 6 units with larger meals. Continue metformin at discharge. Patient will follow up with PCP next week for further titration. Patient given script for CGM. Patient has a manual glucose monitor at home. The patient was discharged to home. At time of discharge, patient was afebrile, hemodynamically stable, tolerating diet, and pain was controlled with oral medications. Patient will follow-up in clinic with Dr. Maurer on 05/08/2024. All other discharge instructions and follow up information are in the patient's After Visit Summary. Summary of last selected lab results and date obtained: Lab Results Component Value Date WBC 5.39 04/14/2024 HGB 10.3 (L) 04/14/2024 HCT 30.4 (L) 04/14/2024 PLATELET 159 04/14/2024 MCV 87.9 04/14/2024 Lab Results Component Value Date SODIUM 135 04/14/2024 POTASSIUM 3.8 04/14/2024 CHLORIDE 106 04/14/2024 CO2 20 (L) 04/14/2024 BUN 13 04/14/2024 CREATSERUM 1.20 04/14/2024 GLUCOSE 188 (H) 04/14/2024 Lab Results Component Value Date ALT 13 04/13/2024 AST 14 04/13/2024 ALKPHOS 48 04/13/2024 BILITOTAL 0.4 04/13/2024 BILIDIRECT 0.1 04/13/2024 Brief Summary of Labs for Discharge Summary: Discharge Orders CT ABDOMEN/PELVIS WITH CONTRAST CHEM 6 (LYTES, BUN CREA) CBC, EDIF, PLATELET HEPATIC FUNCTION PANEL BASIC METABOLIC PANEL AMB REFERRAL TO ONCOLOGY DISCHARGE FOLLOW-UP CLINIC Call MD at the phone number provided on your After Visit Summary at discharge Call MD for: Recurrent Low Blood Sugar Call MD for: Recurrent High Blood Sugar Glucose Management Call for an appointment with your Primary Care Provider As Directed Current Outpatient Meds: Medication List for when you go home START taking these medications Morning Afternoon Evening Bedtime As Needed Cresemba 186 MG CAPS Take 2 capsules by mouth every 24 hours. Please take 2 capsules every 8 hours for 6 doses, then take 2 capsules every 24 hours for a total of 6 weeks. Generic drug: Isavuconazonium FreeStyle Rhonda 3 Sensor MISC Apply 1 Each topically every 14 days. NovoLOG FlexPen 100 UNIT/ML SOPN injection Inject 18 Units under the skin before meals & at bedtime. Please administer 4 units for small meals and 6 units for large meals. Max daily dose of 18 units. Generic drug: insulin aspart Pen [place] 32G X 4 MM MIS Use new needle for each insulin injection. CHANGE how you take these medications Morning Afternoon Evening Bedtime As Needed Acetaminophen 325 MG tablet Take 2 tablets by mouth every 4 hours as needed for Mild Pain for up to 10 days. Commonly known as: TYLENOL What changed: How often you have reported taking this medication has changed You should now only take this medication as needed Last time this was given: 325 mg on April 13, 2024 11:42 PM CONTINUE taking these medications Morning Afternoon Evening Bedtime As Needed amLODIPine 5 MG TABS Take 1 tablet by mouth daily. Commonly known as: NORVASC Last time this was given: 5 mg on April 14, 2024 7:58 AM Amoxicillin-clavulanate 875-125 MG TABS Take 1 tablet by mouth every 12 hours. Commonly known as: AUGMENTIN Ciprofloxacin 750 MG TABS Take 1 tablet by mouth 2 times daily. Commonly known as: CIPRO cyanocobalamin 100 MCG TABS Take 1 tablet by mouth daily. Commonly known as: VITAMIN B12 lisinopril 30 MG TABS Take 1 tablet by mouth daily. Commonly known as: PRINIVIL Last time this was given: 30 mg on April 13, 2024 12:36 AM Medical Compression Stockings MISC 1 Each by Unknown route daily. metFORMIN-XR 500 MG tab XL Take 1 tablet by mouth 2 times daily. Commonly known as: GLUCOPHAGE-XR Metoprolol succinate 50 MG tablet XL Take 1 tablet by mouth daily. Commonly known as: TOPROL-XL Last time this was given: 50 mg on April 14, 2024 7:58 AM omega-3 acid ethyl esters 1 g CAPS Take 2 capsules by mouth 2 times daily. Commonly known as: LOVAZA QC TUMERIC COMPLEX PO Take by mouth. Rosuvastatin 10 MG TABS Take 1 tablet by mouth daily. Commonly known as: CRESTOR Last time this was given: 10 mg on April 14, 2024 7:58 AM Tamsulosin HCl 0.4 MG CAPS Take 1 capsule by mouth daily Commonly known as: FLOMAX Last time this was given: 0.4 mg on April 14, 2024 7:58 AM Vitamin D 25 MCG (1000 UT) TABS Take 1 tablet by mouth daily. Xarelto 20 MG tablet Take 1 tablet by mouth daily with dinner. You may resume taking this medication as previously prescribed after discharge. For refills contact Dr. Juarez. For diagnoses: 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, unspecified laterality Last time this was given: 20 mg on April 13, 2024 6:08 PM Generic drug: Rivaroxaban STOP taking these medications Sulfamethoxazole-trimethoprim 800-160 MG per tablet Commonly known as: BACTRIM DS Medication Instructions: Outpatient ORAL Antibiotic Therapy (OOAT): Diagnosis: Skin and Soft Tissue Infection (SSTI) Post-operative pelvic fluid collections with polymicrobial culture growth including Mucor from L drain - Grew from old drain in the L inguinal area, this drain isnt really having output since it was put in per pt. He is afebrile and HDS. Old drain has been removed since this AM. IR obtained cultures while putting new drain in the L groin, no growth on bacterial culture and fungal cultures are pending. Polymicrobial drain cx: taken from old drains PsA, E faecalis, and Strept viridans Antibiotic(s) with dose: The dosing of these antibiotics is based on today's PK/PD calculations and is subject to change. Please evaluate the patient's medication list and carefully verify their dosing, and infusion rate prior to discharge. Do not hesitate to call the on-call ID Team with any questions. Estimated Creatinine Clearance: 101 mL/min (by C-G formula based on SCr of 1 mg/dL). - Oral Antibiotics: Ciprofloxacin 750 mg PO every 12 hours Amoxicillin-Clavulanate 875-125 mg PO every 12 hours Isavuconazole 372 mg PO every 8 hours x 6 doses, then 372 mg PO every 24 hours Duration of Therapy: Total Duration of therapy: 6 weeks Other: Ciprofloxacin - Start Date: 04/11/24; Stop Date: 05/25/24 (tentative) Other: Amoxicillin-Clavulanate - Start Date: 04/11/24; Stop Date: 05/25/24 (tentative) Other: Isavuconazole - Start Date: 04/12/24; Stop Date: 05/25/24 (tentative) Does Patient Need Oral Antibiotic Therapy at the End of Parenteral Therapy: N/A OPAT ID Providers: (ID Attending): Dr. Adryan Velazquez (ID Fellow): Dr. Isa Mao Labs: Please have the Home Care Company or Extended Care Facility obtain the following labs while on the above antibiotics and fax results to [phone], attention (ID Attending): Dr. Adryan Velazquez and (ID Fellow): Dr. Isa Mao - Chem-6 (Including serum creatinine) without Glucose every Saturday - CBC with differential every Saturday - Hepatic Function Panel every Saturday Imaging: Yes: Prior to discharge, the patient should have CT-A/P with IV contrast to be scheduled on 05/11/24 (prior to ID Appointment on 05/19/2024)) Follow-up: Yes - Patient should follow-up in the ID Clinic (Please ensure patient is enrolled in [facility] prior to discharge) Central Access: Can Central Access be removed at the end of therapy: NA Additional Notes: Please notify ID Team 1 of any new positive culture results from those that are still pending Final duration of antimicrobial therapy to be determined based on clinical and radiographic follow-up Patient should follow-up in the [facility] with Dr. Lilo Mao on 05/19/2024 at 9 AM Follow-up: [facility] Juarez, [address] [facility] [phone] Call Please call to make an appoint with PCP for next week for further insulin titration. Bring log with you on glood glucose level checks. LAB WORK EVERY SATURDAY Follow up on 04/20/2024 Please arrive every Saturday at your local hospital/lab for blood work. Results will need faxed to ID at [phone] LAB WORK Follow up on 04/16/2024 Please arrive on , 04/16/24 at your local hospital/lab for blood work. Results will need faxed to ID at [phone] Upcoming Appointments (up to five)-Some appointments for [facility] outpatient clinics or diagnostic testing locations are not displayed below Provider Department Dept Phone 05/08/2024 1:15 PM Izaiah Maurer Division of Urological Surgery at [facility] Arrive at: Arrive to First Floor Registration [phone] 05/11/2024 12:00 PM [facility], [facility] Imaging and Mammography Outpatient Care [place] Arrive at: Arrive to [address] Registration Desk [phone] 05/19/2024 9:00 AM INFECTIOUS DISEASE FELLOW 6, [facility] Infectious Diseases Care [facility] Outpatient Care [phone] Joann Pereira, CODING EDUCATOR-MIXER ATTENDANT Urology Surgery MARINA documented in this encounter [facility] 04-14-2024 Consult note Associated Order (s): IP CONSULT TO ENDOCRINOLOGY - DIABETES Images from the original note were not included. [facility] Inpatient Diabetes Consult - Team 1 *For provider director medical economics, please use [employer]->[facility]-> Internal Medicine-> Endocrinology & Metabolism-> Team 1 Impression: Uncontrolled Type 2 Diabetes Mellitus (T2DM) admitted with right groin/thigh collection requiring IR drain and antibiotics. DM microvascular complications: none known A1c on admission: 7.4% Type 2 diabetes mellitus on metformin at home - hyperglycemia while admitted for infection. Has been on ICR and CF here. Recommend discharge with basal insulin glargine 6 units daily and correction factor as below. Discussed with patient and and they have been educated on insulin injection by bedside nurse. Follow-up with PCP for consideration of additional oral diabetic agents. Diabetes Inpatient Plan: Prandial: Insulin lispro: 1 unit per 10 gram carbs qachs & prn Correction: Insulin lispro: 2 unit(s) per every 50 mg/dL above 150 mg/dL qachs Diabetes Education: insulin dosing Diabetes Health Maintenance BP goal is < 140/90 LDL cholesterol goal is < 100 mg/dL. Continue statin therapy. Reminded to complete annual Incclto-rd-Zynpkdngzi Ratio and eye, dental & foot exams Review vaccination history. Diabetes Discharge Planning: Considerations for discharge regimen: Insulin: basal insulin glargine 6 units daily and Correction: Insulin lispro: 2 unit(s) per every 50 mg/dL above 150 mg/dL qachs Continue metformin Follow up needed: PCP within 1- 2 weeks Thank you for allowing us to participate in your patients care. If you have questions please use [facility]->[facility]-> Internal Medicine-> Endocrinology & Metabolism-> Team 1 to identify director medical economics pager. We will follow glucose trends with you and make recommendations as indicated. CC: uncontrolled hyperglycemia Date of admission: 04/12/2024 Admission diagnosis: Penile cancer [C60.9] History of Present Illness: Melodie Medrano is a 58 y.o. year old male with Type 2 Diabetes Mellitus (T2DM) diagnosed in 2009 who is seen in consultation at the request of Izaiah Maurer MD for assistance with evaluation of hyperglycemia and to make treatment recommendations. He was interviewed at his bedside in [facility] . Admitted with right groin/thigh collection requiring IR drain and antibiotics. Endocrinology consulted for better hyperglycemia control in setting of his infections. He tells me he has been on metformin for years and had well-controlled diabetes but recently with infection and hospitalizations he has had worse control. Has never used insulin before. Current Diet Orders Procedures DIET REGULAR Standing Status: Standing Number of Occurrences: 1 Glucose Review: Diabetes History Lab Results Component Value Date HGBA1C 7.4 (H) 04/12/2024 Diagnosis (aprox date): 2009 Family History: no known diabetes in the family Outpatient Clinic: [facility] Ju[facility] DO Prior regiments: none Home regimen: Orals: metformin Diabetes Complications: none known Date of most recent dilated eye exam: >1 year Tobacco/Nicotine: He reports that he has quit smoking. His smoking use included cigarettes. He has quit using smokeless tobacco. His smokeless tobacco use included chew. DKA occurrences: no History of Pancreatitis: no History of GMI or UTI: None Home blood glucoses: glucose meter: Accu-Chek He is checking his blood sugars about 2 times per day Fastin-180 Nonfastin-200 Hypoglycemia: no Immunization History Administered Date(s) Administered [id number] COVID-19 monovalent vaccine, mRNA, Moderna, 50 mcg/0.25 mL booster 09/08/2020, 10/06/2020 Social History Tobacco Use Smoking Status Former Types: Cigarettes Smokeless Tobacco Former Types: Chew Social History Substance and Sexual Activity Alcohol Use Yes Alcohol/week: 4.0 standard drinks of alcohol Types: 4 Shots of liquor per week Past Medical History: Diagnosis Date Diabetes mellitus Essential hypertension, benign Hyperlipidemia Melanoma left rib cage Penile ca Pulmonary embolism Past Surgical History: Procedure Laterality Date DRAINAGE SOFT TISSUE PERCUTANEOUS W/ IMAGE GUIDANCE N/A 03/20/2024 Laterality: N/A; Surgeon: Kisha Quarles DO; [facility] LYMPHADENECTOMY INGUINOFEMORAL ROBOTIC Bilateral 03/05/2024 Laterality: Bilateral; Surgeon: Izaiah Maurer MD; Location: [facility] MAIN OR AMPUTATION PENIS PARTIAL N/A 01/22/2024 Laterality: N/A; Surgeon: Izaiah Maurer MD; Location: [facility] PERIOP ACL RECONSTRUCTION BACK SURGERY FOOT SURGERY Bilateral reconstructive OTHER SURGICAL Right undescended testicle VASECTOMY Family History Problem Relation Age of Onset Aneurysm Father Cancer- Other Father melanoma [facility] MEDS: Acetaminophen 325 mg Oral Q24H [START ON 04/15/2024] amLODIPine 5 mg Oral Daily amphotericin B LIPOSOME 5 mg/kg (Adjusted) Intravenous Q24H diphenhydrAMINE 25 mg Oral Q24H Insulin lispro Subcutaneous 4x daily w/meals, HS lisinopril 30 mg Oral Daily Metoprolol succinate 50 mg Oral Daily piperacillin-tazobactam 4.5 g Intravenous Q8HNS Rivaroxaban 20 mg Oral Every dinner Rosuvastatin 10 mg Oral Daily Sodium chloride 0.9% 500 mL Intravenous Q24H Sodium chloride 0.9% 500 mL Intravenous Q24H Tamsulosin HCl 0.4 mg Oral Daily ALLERGIES: has No Known Allergies. INFUSIONS:The past family, medical, and social history were otherwise reviewed and documented in the electronic record system. ROS: Pertinent items are noted in the HPI. He denies symptoms of hypoglycemia. Constitutional: Pt denies confusion, changes in mental status, or fatigue. no weight change Skin: Negative for lesions, rashes, sores, discoloration. HENT: Negative for sore throat, dysphagia, odynophagia, dry mouth. Eyes: Negative for double vision, blurring, tearing, loss of vision Cardiovascular: Negative for palpitations, chest pain, claudication. Respiratory: Negative for SOB, HASKINS Gastrointestinal: Negative for nausea, vomiting, diarrhea, constipation. Genitourinary: Negative for bladder incontinence, dysuria, hematuria. No nocturia Physical Exam General/Constitutional: male, who looks his stated age of 58 y.o.. No acute distress. Vital Signs: BP 127/78 (BP Location: Right arm, BP Position: Sitting) Pulse 64 Temp 97.8 F (36.6 C) (Oral) Resp 16 Ht 1.956 m (6' 5) Wt 106.6 kg (235 lb) SpO2 96% BMI 27.87 kg/m Smoking Status Former , Wt Readings from Last 3 Encounters: 04/13/24 106.6 kg (235 lb) 04/09/24 106.1 kg (234 lb) 04/09/24 106.1 kg (234 lb) Body mass index is 27.87 kg/m . O2 Sat (%): [96 %-98 %] 96 % O2 Device: room air HEENT: Head: Normocephalic and atraumatic. Eyes: Sclerae and conjunctiva are clear. Airway is normal. Neck: Supple, non-tender, with no lymphadenopathy. No carotid bruits, no acanthosis nigricans. Cardiac: regular rhythm, normal rate. Normal S1, S2. No murmurs, rubs or gallops. Pulmonary/Chest: Lungs are clear to ascultation bilaterally with normal respiratory effort. No wheezes, rhonchi or rales. Abdomen: Soft, non-tender, non-distended, normoactive bowel sounds. No organomegaly. No lipohypertrophy/lipodystrophy. Musculoskeletal: No bony deformities, normal muscle mass and tone Extremities: No cyanosis or clubbing. no peripheral edema. Peripheral Vascular Exam: 2+ dorsalis pedis pulses. Neurological: Conscious, alert and interactive. Skin: Skin is warm and dry. No ulcers or lesions on the feet and nails are intact. Psychiatric: Appropriate mood and affect for his clinical situation. Procedure / Imaging / Lab Data: Pertinent procedure/imaging/lab data was reviewed: Lab Results Component Value Date HGBA1C 7.4 (H) 04/12/2024 No results found for: CHOLESTEROL, TRIG, HDL, LDLCALC, LDLDIRECT Lab Results Component Value Date SODIUM 135 04/14/2024 POTASSIUM 3.8 04/14/2024 CHLORIDE 106 04/14/2024 CO2 20 (L) 04/14/2024 BUN 13 04/14/2024 CREATSERUM 1.20 04/14/2024 GLUCOSE 201 (H) 04/14/2024 Lab Results Component Value Date SPGRVTYUR >1.045 (H) 03/16/2024 GLUCOSEURINE 250 mg/dL (A) 03/16/2024 KETONESURINE Negative 03/16/2024 BLOODURINE Negative 03/16/2024 NITRITESURIN Negative 03/16/2024 LEUKOCESTUR Negative 03/16/2024 WBCURINE 11 - 20 (A) 03/16/2024 RBCURINE 0-2 03/16/2024 BACTERIAURIN ABSENT 03/16/2024 No results found for: TSH, UEO53AXH, GED34XVU, TSHBASELINE, TSHULTRASEN, T3FREE, K7XGSKURE, W7OIAMG, Z2QREUTE, T4FREE, TPOAB No results found for: CREATURINE, MICROALBUMIN, MICALBCREAT Lab Results Component Value Date ALT 13 04/13/2024 No results found for: PREALBUMIN FIB-4 Calculation: 1.42 at 04/14/2024 5:26 AM Calculated from: SGOT/AST: 14 U/L at 04/13/2024 1:28 AM SGPT/ALT: 13 U/L at 04/13/2024 1:28 AM Platelets: 159 K/uL at 04/14/2024 5:26 AM Age: 58 years ECHO: No results found for this or any previous visit. CATH: No results found for this or any previous visit from the past 3650 days. No results found for: [id number] No results found for: [id number] Associated attestation - Kathleen Velarde MD - 04/14/2024 9:58 PM EDT I, the attending, discussed the findings and therapeutic plan with the endocrinology diabetes consult team on 04/14/24 I agree with the plan. I discussed and formulated the medical decisions as outlined with the team/ endocrine fellow Dr Bradford Velarde MD Endocrinology [facility] Work Phone: 04-14-2024 Consult note Associated Order (s): IP CONSULT TO ENDOCRINOLOGY - DIABETES Images from the original note were not included. [facility] Inpatient Diabetes Consult - Team 1 *For provider director medical economics, please use [employer]->[facility]-> Internal Medicine-> Endocrinology & Metabolism-> Team 1 Impression: Uncontrolled Type 2 Diabetes Mellitus (T2DM) admitted with right groin/thigh collection requiring IR drain and antibiotics. DM microvascular complications: none known A1c on admission: 7.4% Type 2 diabetes mellitus on metformin at home - hyperglycemia while admitted for infection. Has been on ICR and CF here. Recommend discharge with basal insulin glargine 6 units daily and correction factor as below. Discussed with patient and and they have been educated on insulin injection by bedside nurse. Follow-up with PCP for consideration of additional oral diabetic agents. Diabetes Inpatient Plan: Prandial: Insulin lispro: 1 unit per 10 gram carbs qachs & prn Correction: Insulin lispro: 2 unit(s) per every 50 mg/dL above 150 mg/dL qachs Diabetes Education: insulin dosing Diabetes Health Maintenance BP goal is < 140/90 LDL cholesterol goal is < 100 mg/dL. Continue statin therapy. Reminded to complete annual Upnmcwv-vv-Esnbhrtlfr Ratio and eye, dental & foot exams Review vaccination history. Diabetes Discharge Planning: Considerations for discharge regimen: Insulin: basal insulin glargine 6 units daily and Correction: Insulin lispro: 2 unit(s) per every 50 mg/dL above 150 mg/dL qachs Continue metformin Follow up needed: PCP within 1- 2 weeks Thank you for allowing us to participate in your patients care. If you have questions please use [employer] [facility]->[facility]-> Internal Medicine-> Endocrinology & Metabolism-> Team 1 to identify director medical economics pager. We will follow glucose trends with you and make recommendations as indicated. CC: uncontrolled hyperglycemia Date of admission: 04/12/2024 Admission diagnosis: Penile cancer [C60.9] History of Present Illness: Melodie Medrano Jr. is a 58 y.o. year old male with Type 2 Diabetes Mellitus (T2DM) diagnosed in 2009 who is seen in consultation at the request of Izaiah Maurer MD for assistance with evaluation of hyperglycemia and to make treatment recommendations. He was interviewed at his bedside in [facility] . Admitted with right groin/thigh collection requiring IR drain and antibiotics. Endocrinology consulted for better hyperglycemia control in setting of his infections. He tells me he has been on metformin for years and had well-controlled diabetes but recently with infection and hospitalizations he has had worse control. Has never used insulin before. Current Diet Orders Procedures DIET REGULAR Standing Status: Standing Number of Occurrences: 1 Glucose Review: Diabetes History Lab Results Component Value Date HGBA1C 7.4 (H) 04/12/2024 Diagnosis (aprox date): 2009 Family History: no known diabetes in the family Outpatient Clinic: [facility] DO Prior regiments: none Home regimen: Orals: metformin Diabetes Complications: none known Date of most recent dilated eye exam: >1 year Tobacco/Nicotine: He reports that he has quit smoking. His smoking use included cigarettes. He has quit using smokeless tobacco. His smokeless tobacco use included chew. DKA occurrences: no History of Pancreatitis: no History of GMI or UTI: None Home blood glucoses: glucose meter: Accu-Chek He is checking his blood sugars about 2 times per day Fastin-180 Nonfastin-200 Hypoglycemia: no Immunization History Administered Date(s) Administered [id number] COVID-19 monovalent vaccine, mRNA, Moderna, 50 mcg/0.25 mL booster 09/08/2020, 10/06/2020 Social History Tobacco Use Smoking Status Former Types: Cigarettes Smokeless Tobacco Former Types: Chew Social History Substance and Sexual Activity Alcohol Use Yes Alcohol/week: 4.0 standard drinks of alcohol Types: 4 Shots of liquor per week Past Medical History: Diagnosis Date Diabetes mellitus Essential hypertension, benign Hyperlipidemia Melanoma left rib cage Penile ca Pulmonary embolism Past Surgical History: Procedure Laterality Date DRAINAGE SOFT TISSUE PERCUTANEOUS W/ IMAGE GUIDANCE N/A 03/20/2024 Laterality: N/A; Surgeon: Kisha Quarles DO; [facility] INTER[facility] RADIOLOG[facility] (VIR) LYMPHADENECTOMY INGUINOFEMORAL ROBOTIC Bilateral 03/05/2024 Laterality: Bilateral; Surgeon: Izaiah Maurer MD; Location[facility] MAIN OR AMPUTATION PENIS PARTIAL N/A 01/22/2024 Laterality: N/A; Surgeon: Izaiah Maurer MD; [facility] PERIOP ACL RECONSTRUCTION BACK SURGERY FOOT SURGERY Bilateral reconstructive OTHER SURGICAL Right undescended testicle VASECTOMY Family History Problem Relation Age of Onset Aneurysm Father Cancer- Other Father melanoma Lung Cancer [facility] MEDS: Acetaminophen 325 mg Oral Q24H [START ON 04/15/2024] amLODIPine 5 mg Oral Daily amphotericin B LIPOSOME 5 mg/kg (Adjusted) Intravenous Q24H diphenhydrAMINE 25 mg Oral Q24H Insulin lispro Subcutaneous 4x daily w/meals, HS lisinopril 30 mg Oral Daily Metoprolol succinate 50 mg Oral Daily piperacillin-tazobactam 4.5 g Intravenous Q8HNS Rivaroxaban 20 mg Oral Every dinner Rosuvastatin 10 mg Oral Daily Sodium chloride 0.9% 500 mL Intravenous Q24H Sodium chloride 0.9% 500 mL Intravenous Q24H Tamsulosin HCl 0.4 mg Oral Daily ALLERGIES: has No Known Allergies. INFUSIONS:The past family, medical, and social history were otherwise reviewed and documented in the electronic record system. ROS: Pertinent items are noted in the HPI. He denies symptoms of hypoglycemia. Constitutional: Pt denies confusion, changes in mental status, or fatigue. no weight change Skin: Negative for lesions, rashes, sores, discoloration. HENT: Negative for sore throat, dysphagia, odynophagia, dry mouth. Eyes: Negative for double vision, blurring, tearing, loss of vision Cardiovascular: Negative for palpitations, chest pain, claudication. Respiratory: Negative for SOB, HASKINS Gastrointestinal: Negative for nausea, vomiting, diarrhea, constipation. Genitourinary: Negative for bladder incontinence, dysuria, hematuria. No nocturia Physical Exam General/Constitutional: male, who looks his stated age of 58 y.o.. No acute distress. Vital Signs: BP 127/78 (BP Location: Right arm, BP Position: Sitting) Pulse 64 Temp 97.8 F (36.6 C) (Oral) Resp 16 Ht 1.956 m (6' 5) Wt 106.6 kg (235 lb) SpO2 96% BMI 27.87 kg/m Smoking Status Former , Wt Readings from Last 3 Encounters: 04/13/24 106.6 kg (235 lb) 04/09/24 106.1 kg (234 lb) 04/09/24 106.1 kg (234 lb) Body mass index is 27.87 kg/m . O2 Sat (%): [96 %-98 %] 96 % O2 Device: room air HEENT: Head: Normocephalic and atraumatic. Eyes: Sclerae and conjunctiva are clear. Airway is normal. Neck: Supple, non-tender, with no lymphadenopathy. No carotid bruits, no acanthosis nigricans. Cardiac: regular rhythm, normal rate. Normal S1, S2. No murmurs, rubs or gallops. Pulmonary/Chest: Lungs are clear to ascultation bilaterally with normal respiratory effort. No wheezes, rhonchi or rales. Abdomen: Soft, non-tender, non-distended, normoactive bowel sounds. No organomegaly. No lipohypertrophy/lipodystrophy. Musculoskeletal: No bony deformities, normal muscle mass and tone Extremities: No cyanosis or clubbing. no peripheral edema. Peripheral Vascular Exam: 2+ dorsalis pedis pulses. Neurological: Conscious, alert and interactive. Skin: Skin is warm and dry. No ulcers or lesions on the feet and nails are intact. Psychiatric: Appropriate mood and affect for his clinical situation. Procedure / Imaging / Lab Data: Pertinent procedure/imaging/lab data was reviewed: Lab Results Component Value Date HGBA1C 7.4 (H) 04/12/2024 No results found for: CHOLESTEROL, TRIG, HDL, LDLCALC, LDLDIRECT Lab Results Component Value Date SODIUM 135 04/14/2024 POTASSIUM 3.8 04/14/2024 CHLORIDE 106 04/14/2024 CO2 20 (L) 04/14/2024 BUN 13 04/14/2024 CREATSERUM 1.20 04/14/2024 GLUCOSE 201 (H) 04/14/2024 Lab Results Component Value Date SPGRVTYUR >1.045 (H) 03/16/2024 GLUCOSEURINE 250 mg/dL (A) 03/16/2024 KETONESURINE Negative 03/16/2024 BLOODURINE Negative 03/16/2024 NITRITESURIN Negative 03/16/2024 LEUKOCESTUR Negative 03/16/2024 WBCURINE 11 - 20 (A) 03/16/2024 RBCURINE 0-2 03/16/2024 BACTERIAURIN ABSENT 03/16/2024 No results found for: TSH, VYY98FTM, GRW91BTG, TSHBASELINE, TSHULTRASEN, T3FREE, V8QXGJUWF, L8NZXDQ, K9ALBRUB, T4FREE, TPOAB No results found for: CREATURINE, MICROALBUMIN, MICALBCREAT Lab Results Component Value Date ALT 13 04/13/2024 No results found for: PREALBUMIN FIB-4 Calculation: 1.42 at 04/14/2024 5:26 AM Calculated from: SGOT/AST: 14 U/L at 04/13/2024 1:28 AM SGPT/ALT: 13 U/L at 04/13/2024 1:28 AM Platelets: 159 K/uL at 04/14/2024 5:26 AM Age: 58 years ECHO: No results found for this or any previous visit. CATH: No results found for this or any previous visit from the past 3650 days. No results found for: [id number] No results found for: [id number] Associated attestation - Kathleen Velarde MD - 04/14/2024 9:58 PM EDT I, the attending, discussed the findings and therapeutic plan with the endocrinology diabetes consult team on 04/14/24 I agree with the plan. I discussed and formulated the medical decisions as outlined with the team/ endocrine fellow Dr Bradford Velarde MD Endocrinology Associated Order(s): IP CONSULT TO INFECTIOUS DISEASE Consult performed on 04/10. ID Team 1 following. See note by Ludwin Booker (Medical Student) and Dr. Jackson. Note placed to clear consult Vascular Access Procedure Note for Ultrasound Guided PIV Placement Assessment Melodie Medrano Jr. seen and evaluated for peripheral IV insertion using ultrasound guidance. ID band present, allergies verified and patient/nurse questioned of limb precautions. Skin integrity assessed, no evidence of condition that would prevent safe insertion of a peripheral IV with ultrasound. Allergies: No Known Allergies Insertion Ultrasound guided PIV: Peripheral IV placed per aseptic technique under ultrasound guidance on 1st attempt(s). [x]Obtained labs Peripheral IV Line - Single Lumen 04/13/24132 forearm, anterior, left 22 gauge;1 3/4 in length (Active) 04/13/24132 Present On Admission : no Guiding Device: ultrasound Lumen 1: Additional Lumens: Lumen 2: Location: forearm, anterior, left Device/Lot Number: [id number] catheter system Gauge/Length: 22 gauge;1 3/4 in length Unsuccessful Insertion Attempts: Unsuccessful Attempt Location/Site: Pain Prevention/Patient Tolerance: distraction;tolerated well Removal: Additional Comments: placed by Rama Olivarez RN Lumen 3: Peripheral IV Present on Admission: (Retired/Read Only) Location: (Retired/Read Only) Device: (Retired/Read Only) Gauge/Length: System Specialist/Lot Number: Unsuccessful Insertion Attempts: (Retired/Read Only) Unsuccessful Attempt Locations: Pain Prevention: Patient Tolerance: Insertion: Removal Indication: Peripheral IV Location - Orientation: Peripheral IV Location: Insertion Site WDL WDL 04/13/24133 Site Preparation/Maintenance site cleansed: chlorhexidine solution;dressing: dry and intact 04/13/24133 Securement catheter stabilization device, secured with;site guard in place 04/13/24133 Date Dressing Changed 04/13/24 04/13/24133 Lumen 1 Patency/Maintenance flushed without difficulty;blood return, able to obtain 04/13/24133 Date Lumen 1 Cap/Connector Changed/Applied 04/13/24 04/13/24133 Phlebitis 0-->no symptoms 04/13/24133 Infiltration 0-->no symptoms 04/13/24133 Positive blood return noted, flushes easily, no edema, or leakage noted. Stabilization device used to secure IV, occlusive dressing applied. Denies pain at site. Patient tolerated procedure well. Site dated and initialed. Bedside RN notified of procedure completion Education Patient/Family informed to notify nurse of any complications including pain, redness, swelling, or leakage post insertion. Pt safety room check completed prior to exiting room. [x]Call light. [x]Bed locked. [x]Bed low. [x]Tray table within reach. Thank you for allowing our team to participate in the care of this patient. Vascular Access Team [id number] documented in this encounter [facility] 04-14-2024 History of Present illness Narrative Urology Daily Progress Note Last 24 Hours Yesterday/Overnight: Over the past 24 hours, notable events are listed below: Awaiting insurance approval for cresemba oral antifungal for patient to discharge home taking No acute events overnight. Endo consulted as pt has had increased BG Afebrile, VSS. On room air Labs stable as annotated below. UOP: 600 + 3x Drains: IR Ant groin: -60/185/42=467 R Distal thigh1: 30/100/77=322 L Distal thigh 2: removed Subjective: Patient states doing ok this morning. Pain is currently controlled. He is tolerating diet without nausea or vomiting. Denies SOB, CP. at bedside. Discussed plan of care for the day. Physical Exam Gen: NAD HEENT: NCAT CV: Hemodynamically normal Chest: No increased work of breathing, on RA Abdominal: Soft, non-distended, nontender. Ext: warm, no edema. R ROSA MARIA drain with serous output. Area without redness, warmth. Swelling much improved to area : Voiding without difficulty. Left IR drain with serous output. Laboratory Studies and Objective Data Temp: [97.7 F (36.5 C)-98.7 F (37.1 C)] 97.8 F (36.6 C) Pulse (Heart Rate): [62-79] 64 Resp Rate: [16-17] 16 BP: (119-136)/(74-84) 127/78 O2 Sat (%): [96 %-98 %] 96 % Oxygen Therapy O2 Sat (%): 96 % O2 Device: room air 24 hour outputs: Intake/Output Summary (Last 24 hours) at 04/14/2024 0958 Last data filed at 04/14/2024 0911 Gross per 24 hour Intake 3030.98 ml Output 505 ml Net 2525.98 ml WBC/Hgb/Hct/Plts: 5.39/10.3/30.4/159 (04/14 526) Na/K+/Phos/Mg/Ca: 135/3.8/4.1/1.8/8.2 (04/14 526) Bun/Creat/Cl/CO2/Glucose: 13/1.20/106/20/201 (04/14 526) Assessment/Plan Melodie Medrano Jr. is a 58 y.o. year old male with PMH DM, HTN, HLD, DVT/PE on Xarelto and melanoma, pT3 penile cancer s/p partial penectomy and 03/06/24 b/l RAIL. Admitted 03/16 for R IR drain on 03/20 of right groin/thigh collection Admitted 04/09 for L IR drain on 04/10 of left inguinal collection and drain placement He was discharged home 04/11 on a 10 day course of 2 different oral antibiotics (Ciprofloxacin and Augmentin). Now Admitted 04/13 for Mucro sp on L ROSA MARIA drain culture per ID for monitoring Today's Plan: > PO intake and ambulation encouraged > L IR drain Fungal culture NG day > FU with ID to discuss Cr bump 1.2 (1.0) > FU with pharmacy for cresemba approval as it appears prior auth was approved > Discharge this afternoon following endo recs, ID recs ID: - WBC WNL 5.98 (5.28) - Denies fever or chills - Zosyn and Amphotericin started 04/12 PM - Appreciate ID recs L IR drain Fungus Cx 04/12: NG day Ucx 04/10: NG IR fluid cx 04/10- NG 2/2 R ROSA MARIA cx 04/09 - pseuo putida EBill Royal, susc pending L ROSA MARIA cx 04/09 Strep veridans, pseudo putida, e genny, Mucor IR drain cx 03/20 NG R ROSA MARIA cx 03/17 NG L ROSA MARIA cx 03/17 staph epi UCx 03/16 NG BCx 9 NG DM: - Strict glucose control with SSI - A1C pending - Endo consulted to assist with outgoing DM regimen DVT/PE: - New incidental PE sound on CT/PE previous admission 04/09 - Heme consulted and recommended no further work up and to continue home xarelto - Continue Xarelto Complexity. Hypocalcemia - Continue to monitor and replete. Any conditions listed below are present on admission unless otherwise specified. . - DIET REGULAR - IVF: N/A - Pain control: Scheduled acetaminophen - Activity: OOB, ambulation encouraged - Electrolytes: Replete to goals - Prophylaxis: Xarelto, SCDs, IS - Level of care: MedSurg - Dispo: Pending hospital course Patient seen on rounds with Chief Resident and will discuss with Dr. Maurer. BIANCA Ulloa Urologic Surgery Pager: [phone] Please page/call the Urology resident on first call on [employer] ([employer] > [facility] > [facility]> select appropriate resident) with any issues/concerns; this note does not necessarily reflect who is currently director medical economics [facility] Coordination Note Patient received in handoff from [facility] RN, Kary Davey, for potential homecare services. Will continue to follow with protective services case worker for plan of care. [facility] Home Health Following Physician Confirmation Following Physician: Dr. Izaiah Maurer / [phone] Physician Service: Oncology Agreeable to Follow: Yes YUMIKO Wilde, RN Post-Acute Scientific Recruiter Per [facility] [employer], Isavuconazonium has been approved from 04/13/24-04/13/25. Updated the medical team and the pharmacy. 1027- Isavuconazonium/Cresemba is going through insurance and is $0. This medication is filled at the [facility] pharmacy. Outpatient ORAL Antibiotic Therapy (OOAT): For patients who will be discharged on parenteral (IV) antibiotic therapy, please utilize the OPAT discharge orderset. For patients who are on oral antibiotic therapy, utilization of this orderset is not necessary. Diagnosis: Skin and Soft Tissue Infection (SSTI) Post-operative pelvic fluid collections with polymicrobial culture growth including Mucor from L drain - Grew from old drain in the L inguinal area, this drain isnt really having output since it was put in per pt. He is afebrile and HDS. Old drain has been removed since this AM. IR obtained cultures while putting new drain in the L groin, no growth on bacterial culture and fungal cultures are pending. Polymicrobial drain cx: taken from old drains PsA, E faecalis, and Strept viridans Antibiotic(s) with dose: The dosing of these antibiotics is based on today's PK/PD calculations and is subject to change. Please evaluate the patient's medication list and carefully verify their dosing, and infusion rate prior to discharge. Do not hesitate to call the on-call ID Team with any questions. Estimated Creatinine Clearance: 101 mL/min (by C-G formula based on SCr of 1 mg/dL). - Oral Antibiotics: Ciprofloxacin 750 mg PO every 12 hours Amoxicillin-Clavulanate 875-125 mg PO every 12 hours Isavuconazole 372 mg PO every 8 hours x 6 doses, then 372 mg PO every 24 hours Duration of Therapy: Total Duration of therapy: 6 weeks Other: Ciprofloxacin - Start Date: 04/11/24; Stop Date: 05/25/24 (tentative) Other: Amoxicillin-Clavulanate - Start Date: 04/11/24; Stop Date: 05/25/24 (tentative) Other: Isavuconazole - Start Date: 04/12/24; Stop Date: 05/25/24 (tentative) Does Patient Need Oral Antibiotic Therapy at the End of Parenteral Therapy: N/A OPAT ID Providers: (ID Attending): Dr. Adryan Velazquez (ID Fellow): Dr. Isa Mao Labs: Please have the Home Care Company or Extended Care Facility obtain the following labs while on the above antibiotics and fax results to [phone], attention (ID Attending): Dr. Adryan Velazquez and (ID Fellow): Dr. Isa Mao - Chem-6 (Including serum creatinine) without Glucose every Lars - CBC with differential every Saturday - Hepatic Function Panel every Saturday Imaging: Yes: Prior to discharge, the patient should have CT-A/P with IV contrast to be scheduled on 05/11/24 (prior to ID Appointment on 05/19/2024)) Follow-up: Yes - Patient should follow-up in the ID Clinic (Please ensure patient is enrolled in [facility] prior to discharge) If the [facility] we will defer ID Care to the Infectious Disease Providers at the [facility] facility. Please instruct the facility that if the patient requires ID Follow-up after discharge, then they should call our office to arrange for an appointment. Central Access: Can Central Access be removed at the end of therapy: NA Additional Notes: Please notify ID Team 1 of any new positive culture results from those that are still pending Final duration of antimicrobial therapy to be determined based on clinical and radiographic follow-up Patient should follow-up in the [facility] with Dr. Lilo Mao on 05/19/2024 at 9 AM Thank you GATO Chris ID Fellow ID Staff Please see the above OOAT recommendations as they have been modified to reflect my own. Thank you Adryan Velazquez DO Attending Physician - Infectious Diseases [phone] Interventional Radiology Progress Note: Procedure: Percutaneous left inguinal drain placement on 04/13/24 (Dr. Whitaker) Pertinent IR History: Patient is a 58 y.o. male with a pertinent past medical history of DM, HTN, HLD, DVT/PE on Xarelto, and melanoma who is status post bilateral robotic assisted inguinofemoral lymphadenectomy on 03/05/24 presenting with pain and swelling of his left groin and thigh with fevers and chills. IR consulted for drain placement. Subjective: Patient resting in bed, new inguinal drain and left thigh drain in place with dressing intact and draining smiley/orange fluid. Patient notes mild tenderness but is tolerable. Past Medical History: Diagnosis Date Diabetes mellitus Essential hypertension, benign Hyperlipidemia Melanoma left rib cage Penile ca Pulmonary embolism No Known Allergies ROS: General: Denies fevers or confusion Cardiac: Denies chest pain and heart palpitations Pulmonary: Denies SOB GI: Denies nausea, vomiting and abdominal pain : Denies flank pain, dysuria and hematuria MSK: Denies neuropathy Objective: Blood pressure 136/79, pulse 62, temperature 97.9 F (36.6 C), temperature source Oral, resp. rate 16, height 1.956 m (6' 5), weight 106.6 kg (235 lb), SpO2 98%. Exam: General: no acute distress, alert and oriented Chest: Symmetric expansion, non-labored Drains: left inguinal drain with dressing dry and intact, draining orange/smiley colored fluid into the ROSA MARIA bulb Skin: intact, dry, normal color Intake/Output Summary (Last 24 hours) at 04/13/2024 1421 Last data filed at 04/13/2024 0829 Gross per 24 hour Intake 1000.99 ml Output 1050 ml Net -49.01 ml Drain Output: 60 cc Laboratory: Lab Results Component Value Date/Time INR 2.5 (H) 04/09/2024 09:51 AM WBC 5.98 04/13/2024 01:28 AM PLATELET 169 04/13/2024 01:28 AM HGB 10.8 (L) 04/13/2024 01:28 AM CREATSERUM 1.00 04/13/2024 01:28 AM CREATSERUM 0.99 01/31/2024 10:28 AM GFR 87 04/13/2024 01:28 AM GFR 88 01/31/2024 10:28 AM Fluid Culture: pending Impression and Plan: Day 1 post percutaneous drain placement for left inguinal fluid collection. We recommend continued routine drain care to include the following: No flushing unless obstructed Change the dressing at least qod. Recommend repeat imaging when output is <15 ml a day for 48 hours to assure clearance of the collection and evaluate for removal. Further management per Urology We encourage primary team to notify IR should we be of further assistance in the care of this patient. BIANCA Henriquez 04/13/2024 2:21 PM Please contact VIR resident director medical economics for questions Summary: Psychosocial Assessment follow up Psychosocial Assessment Follow Up Psychosocial Assessment completed on 04/10/2024 by AMANDA Franco. SW met with patient and spouse at bedside to introduce self, explain social human services assistants role during inpatient stay, and answer questions. Patient was alert and oriented x4, and agreeable to SW visit. Per chart review, patient is a 58 y.o., male, who was admitted for PMH DM, HTN, HLD, DVT/PE on Xarelto and melanoma, pT3 penile cancer s/p partial penectomy and 03/06/24 b/l RAIL. Contact Information: Crew Leader/Control Room Operator Name: Deborah Queen Crew Leader/Control Room Operator's Social Work Contact Name: Thien Ulrich Mer[employer]izing Range Feeder's Advance Directive Discussion: Patient does not have any advance directives on file. SW inquired whether or not patient is interested in completing health care power of user experience architect and/or living will paperwork during this visit. SW reviewed the documents, discussed the benefits of completing them, and provided education re: Legal NOK (LNOK). Patient declined interest in completing the documents at this time. Legal NOK: Melodie's Mendoza Medrano ) is her Legal NOK. Patient Coping/Stress Concerns: Patient Coping/Stress Concerns: No Food Insecurity: Within the past 12 months, you worried that your food would run out before you got the money to buy more.: Never true Within the past 12 months, the food you bought just didn't last and you didn't have money to get more.: Never true Housing Stability: In the last 12 months, was there a time when you were not able to pay the mortgage or rent on time?: No Utilities: In the past 12 months has the electric, gas, oil, or water [employer] threatened to shut off services in your home?: No Transportation Needs: In the past 12 months, has lack of transportation kept you from medical appointments or from getting medications?: No In the past 12 months, has lack of transportation kept you from meetings, work, or from getting things needed for daily living?: No Alcohol Use: Q1: How often do you have a drink containing alcohol?: 2-3 times a week Q2: How many drinks containing alcohol do you have on a typical day when you are drinking?: 3 or 4 Q3: How often do you have six or more drinks on one occasion?: Monthly Substance Use: How many times in the past year have you used illegal drugs?: Never Intimate Partner Violence: Within the last year, have you been afraid of your partner or ex-partner?: Patient unable to answer Within the last year, have you been humiliated or emotionally abused in other ways by your partner or ex-partner?: Patient unable to answer Within the last year, have you been kicked, hit, slapped, or otherwise physically hurt by your partner or ex-partner?: Patient unable to answer Within the last year, have you been raped or forced to have any kind of sexual activity by your partner or ex-partner?: Patient unable to answer Community Resources: No community resource linkage identified at this time. Patient denied the need for resource information and new referrals. Pt was encouraged to contact SW should this status change in the future. SW offered JCFL brochure and Psychosocial Oncology referral but pt has declined at this time. Anticipated Discharge Plan: Anticipated Discharge Plan: Home Medical Team Considerations: TBD SW Interventions/Recommendations: Service SW name and contact information placed on white board in patient's room to contact as needed. SW will continue to remain available to provide assistance and support as needed during inpatient stay. Provided education on Advanced Directives Provided pt with Information for JCFL and Psychosocial Oncolgy, however pt declined. Assessed for SDOH AMANDA Hernandez (Dia) Colorectal//ACS Inpatient [employer] Feeder Pager: [phone] For evening (4:30pm-8:00am) and weekend SW needs, please call [phone] or page [phone]. Per medicals team discussion with ID: okay for oral antibiotics x 6 weeks: Isavuconazonium was sent to the [facility] pharmacy. This medication is not covered by insurance. Prior Authorization and override started; awaiting response. 1522- Call placed to [facility] to discuss status update on Isavuconazonium, this is still pending. Per message, Itraconazole, needs tried first. Discussed with the medical team who states that this is contraindicated with his Xarelto. This information has been added to the PA/overide. Awaiting response. Summary: Psychosocial Assessment SW attempted to meet with patient to complete psychosocial assessment; however, patient was found to be with members of the medical team at this time. SW will revisit patient as able and remain available as needed. Thien MIKE (Dia), HIGH SCHOOL DRAFTING TEACHER Colorectal//ACS Inpatient Mercerizing Range Feeder Pager: [phone] For evening (4:30pm-8:00am) and weekend SW needs, please call [phone] or page [phone]. INFECTIOUS DISEASE FOLLOW-UP NOTE S: Afebrile and hemodynamically stable overnight. at bedside, discussed drain results in detail Current Medications: Acetaminophen 325 mg Oral Q24H amLODIPine 5-10 mg Oral Daily amphotericin B LIPOSOME 5 mg/kg (Adjusted) Intravenous Q24H diphenhydrAMINE 25 mg Oral Q24H Insulin lispro Subcutaneous 4x daily w/meals, HS lisinopril 30 mg Oral Daily Magnesium sulfate 4 g Intravenous Once Metoprolol succinate 50 mg Oral Daily piperacillin-tazobactam 4.5 g Intravenous Q8HNS Rivaroxaban 20 mg Oral Every dinner Rosuvastatin 10 mg Oral Daily Sodium chloride 0.9% 500 mL Intravenous Q24H Sodium chloride 0.9% 500 mL Intravenous Q24H Tamsulosin HCl 0.4 mg Oral Daily PHYSICAL EXAM: Temp: [97.7 F (36.5 C)-98.4 F (36.9 C)] 97.7 F (36.5 C) Pulse (Heart Rate): [65-82] 65 Resp Rate: [14-16] 16 BP: (127-150)/(83-87) 140/84 O2 Sat (%): [95 %-98 %] 95 % Weight: [106.3 kg (234 lb 6.4 oz)-106.6 kg (235 lb)] 106.6 kg (235 lb) GEN: Awake, resting comfortably EYES: EOMI, no scleral icterus HENT: MMM. No oral lesions. Fair dentition. NECK: Supple, no cervical lymphadenopathy or meningismus. CARDIO: RRR, no murmur. PULM/CHEST: CTAB. No increased work of breathing ABD: Soft, not tender or distended MSK: no obvious effusion, swelling, increased warmth, or erythema of major joints. No pedal edema. Two drains in the L groin and one in R. Soft tissue fluid palpable in areas where drains are placed, but no warmth, induration, overlying erythema, or pain to palpation. SKIN: No rashes. Hands and fingers appear normal. No stigmata of endocarditis. NEURO: AOx3. Moves all four extremities. LABS: Lab Results Component Value Date WBC 5.98 04/13/2024 HGB 10.8 (L) 04/13/2024 HCT 32.3 (L) 04/13/2024 PLATELET 169 04/13/2024 MCV 87.1 04/13/2024 Lab Results Component Value Date SODIUM 139 04/13/2024 POTASSIUM 3.6 04/13/2024 CHLORIDE 105 04/13/2024 CO2 23 04/13/2024 BUN 14 04/13/2024 CREATSERUM 1.00 04/13/2024 GLUCOSE 176 (H) 04/13/2024 No results found for: ALT, TRANSFERASEA, AST, GGT, GAMMAGT, ALKPHOS, BILITOTAL, BILIDIRECT Estimated Creatinine Clearance: 101 mL/min (by C-G formula based on SCr of 1 mg/dL). No results found for: SEDRATE No results found for: CRP MICRO: 04/09 ROSA MARIA left strept viridans Ps. Put[place] (S to cipro I, E faecalis (pansens) and light mucor staph epi 04/09 ROSA MARIA right Ps. [place] (S to cipro, I ceftri), E faecalis (pansens) 04/10 L drain w NG Imaging: (personally reviewed) -CTAP: Persistent bilateral inguinal collections, significantly increased in size on left. Thick peripheral wall, reflecting possible superimposed infection. Drain in left thigh does not transverse inguinal collection. ASSESSMENT: Melodie Medrano Jr. is a 58 y.o. male with a PMH of PMH of DM2, HTN, HLD, melanoma, penile cancer s/p resection including inguinofemoral lymphoidectomy, and pulmonary edema who came to the ED for L groin swelling, found to have bilateral inguinal collections L>R, L drain not noted to be in the correct position. On admission both drains were cx w polymicrobial growth but w L one growing mucor too. L drain was replaced on 04/10 w sample collected by IR jordan FOWLER . He was initially tx w vanc and zosyn and then transitioned to cipro augmentin and dcd by primary team, mucor was late growth which is why pt was called back and started on ambisome Post-operative pelvic fluid collections with polymicrobial culture growth including Mucor from L drain - Grew from old drain in the L inguinal area, this drain isnt really having output since it was put in per pt. He is afebrile and HDS. Old drain has been removed since this AM. IR obtained cultures while putting new drain in the L groin, no growth on bacterial culture and fungal cultures are pending. Polymicrobial drain cx: taken from old drains PsA, E faecalis and Strept virdans R groin drain 2/ #3 penile cancer s/p resection including inguinofemoral lymphoidectomy PE new diagnosis : is on xarelto Estimated Creatinine Clearance: 101 mL/min (by C-G formula based on SCr of 1 mg/dL). Estimated Creatinine Clearance: 101 mL/min (by C-G formula based on SCr of 1 mg/dL). RECOMMENDATIONS: Diagnostics: Follow fungal cx Therapeutics: - Please continue IV Ambisome while in the hospital with close monitoring of renal function and electrolytes - Oral options for mucor are Posaconazole and Isavuconazole. Posaconazole has significant interactions with the patient's Xarelto, so will do isavuconazole which is less likely to interact. - At the time of discharge, would favor changing the IV Ambisome to Isavuconazole 372 mg PO every 8 hours x 6 doses, then 372 mg PO daily thereafter - Can continue Pip-tazo while in the hospital, but at the time of discharge would also change to the following PO antibiotics: Ciprofloxacin 750 mg PO every 12 hours (for the Pseudomonas putida-complex) and - - Amoxicillin-Clavulanate 875-125 mg PO every 12 hours (for E faecalis and S viridans). - Would plan for 6 weeks of the above PO antimicrobials (Isavuconazole, Ciprofloxacin, and Amox-Clav), but would check CT-Abdomen/Pelvis with IV contrast in 4 weeks of re-assess status of the collections. - Would also recommend ID clinic follow-up in [address] performed. - Please see separate ID OOAT note for additional recommendations. - Please contact ID Team 1 with any new culture results from those that are still pending. ID Team 1 will sign off for now, but please call with questions or new developments. ISOLATION: 1 GATO Chris Infectious Disease Fellow The ID Team pagers are available - Saturday through Saturday from 7:00 am to 06:00 pm. For emergent or after hour issues, please call the on-call/1st-call ID fellow pager. [facility] - [facility] Infectious Disease - ID Staff I have discussed and examined the patient along with the ID Fellow at bedside on 04/13/2024. I agree with the ID Fellow's history, physical exam, and clinical decision making. These were corroborated by me and modified when necessary, based on my findings. Chart, labs, micro, radiology, and vitals reviewed. Please see the ID Fellow's impressions and recommendations above as they have been modified to reflect my own when necessary. Our overall recommendations were discussed with the patient and his at bedside. They verbalized understanding and were agreeable with the plan of care. These recommendations were relayed to the primary team. Thank you Adryan Velazquez DO Attending Physician - Infectious Diseases [phone] Discharge Planning for Home Health Options for discharge have been discussed with the medical team. Per team, IV antibiotics are anticipated for discharge. HHC and Infusion referral will be started today. Background Information/ Hospital Overview: Melodie Medrano Jr. is a 58 year old male with PMH DM, HTN, HLD, DVT/PE on Xarelto and melanoma, pT3 penile cancer s/p partial penectomy and 03/06/24 b/l RAIL. Admitted 03/16 for R IR drain on 03/20 of right groin/thigh collection Admitted 04/09 for L IR drain on 04/10 of left inguinal collection and drain placement He was discharged home 04/11 on a 10 day course of 2 different oral antibiotics (Ciprofloxacin and Augmentin). Now Admitted 04/13 for Mucro sp on L ROSA MARIA drain culture per ID for monitoring Services needed: Chcf [facility] Needs IV antibiotics. The patient and spouse have been managing drain care at home. Line / tube / drain type and care needed ROSA MARIA drain and IR drain. Oxygen requirements / airway Room air Lab work: type and frequency Anticipate weekly labs while one IV antibiotics. Specialty Medications: (chemotherapy / IV antibiotics / Hydration) Per medical team, the patient will likely need IV antibiotics for discharge; awaiting ID recommendations. Teachable Caregiver / Family Support: Spouse is a teachable caregiver and will be willing to work with [facility] to obtain education if there are complex teaching services needed for the patient. Physician following for home care orders / phone: Dr. Jamir Maurer/[phone] Outpatient PCRM / phone: Andres Mao/[phone] Deborah Neves MSN, ACM-RN Patient Care Chef Teacher Pager# [phone] Please see assessment completed on 04/10/24. The patient was discharged and readmitted with 24 hours. Urology Daily Progress Note Last 24 Hours Yesterday/Overnight: Over the past 24 hours, notable events are listed below: Re-admitted overnight to IV abx and antifungal therapy as L ROSA MARIA cx grew mucormycosis No acute events overnight. Afebrile, VSS. On room air Labs stable as annotated below. UOP: --/225/--= 225ml Drain: IR Ant groin: --/100/-- = 100ml R Distal thigh1: --/30/-- = 30ml L Distal thigh 2: --/5/-- = 5ml Subjective: Patient states doing ok this morning. Pain is currently controlled. Much improved since Left IR drain placed. He is tolerating diet without nausea or vomiting. Denies SOB, CP. Physical Exam Gen: NAD HEENT: NCAT CV: Hemodynamically normal Chest: No increased work of breathing, on RA Abdominal: Soft, non-distended, nontender. Ext: warm, no edema. R ROSA MARIA drain with serous output. L ROSA MARIA drain with scant amt of serous output. Induration noted between L IR drain and R ROSA MARIA drain, palpable fluid pocket but much improved. Area without redness, warmth. : Voiding without difficulty. Left IR drain with serous output. Laboratory Studies and Objective Data Temp: [97.7 F (36.5 C)-98.4 F (36.9 C)] 97.7 F (36.5 C) Pulse (Heart Rate): [65-82] 65 Resp Rate: [14-16] 15 BP: (127-150)/(83-87) 144/83 O2 Sat (%): [96 %-98 %] 98 % Weight: [106.3 kg (234 lb 6.4 oz)-106.6 kg (235 lb)] 106.6 kg (235 lb) Oxygen Therapy O2 Sat (%): 98 % O2 Device: room air 24 hour outputs: Intake/Output Summary (Last 24 hours) at 04/13/2024 0656 Last data filed at 04/13/2024 0437 Gross per 24 hour Intake 500.9 ml Output 360 ml Net 140.9 ml WBC/Hgb/Hct/Plts: 5.98/10.8/32.3/169 (04/13 128) Na/K+/Phos/Mg/Ca: 139/3.6/3.8/1.5/8.4 (04/13 128) Bun/Creat/Cl/CO2/Glucose: 14/1.00/105/23/228 (04/13 128) Assessment/Plan Melodie Medrano Jr. is a 58 y.o. year old male with PMH DM, HTN, HLD, DVT/PE on Xarelto and melanoma, pT3 penile cancer s/p partial penectomy and 03/06/24 b/l RAIL. Admitted 03/16 for R IR drain on 03/20 of right groin/thigh collection Admitted 04/09 for L IR drain on 04/10 of left inguinal collection and drain placement He was discharged home 04/11 on a 10 day course of 2 different oral antibiotics (Ciprofloxacin and Augmentin). Now Admitted 04/13 for Mucro sp on L ROSA MARIA drain culture per ID for monitoring Today's Plan: > PO intake and ambulation encouraged > Fungal culture pending > FU with ID to determine abx plan and length of treatment required > No current indication for debridement and surgical exploration but will have low threshold if infection progresses ID: - WBC WNL 5.98 (5.28) - Denies fever or chills - Zosyn and Amphotericin started 04/12 PM - Appreciate ID recs Fungus Cx 04/12: PEND Ucx 04/10: NG IR fluid cx 04/10- NG /2 R ROSA MARIA cx 04/09 - pseuo putida, E. Genny, susc pending L ROSA MARIA cx 04/09 Strep veridans, pseudo putida, e genny, Mucor IR drain cx 03/20 NG R ROSA MARIA cx 03/17 NG L ROSA MARIA cx 03/17 staph epi UCx 03/16 NG BCx 03/16 NG DM: - Strict glucose control with SSI - A1C pending DVT/PE: - New incidental PE sound on CT/PE previous admission 04/09 - Heme consulted and recommended no further work up and to continue home xarelto - Continue Xarelto Complexity. Hypomagnesemia - Continue to monitor and replete. Hypocalcemia - Continue to monitor and replete. Any conditions listed below are present on admission unless otherwise specified. . - DIET REGULAR - IVF: N/A - Pain control: Scheduled acetaminophen - Activity: OOB, ambulation encouraged - Electrolytes: Replete to goals - Prophylaxis: Xarelto, SCDs, IS - Level of care: MedSurg - Dispo: Pending hospital course Patient seen on rounds with Chief Resident and will discuss with Dr. Maurer. BIANCA Ulloa Urologic Surgery Pager: [phone] Please page/call the Urology resident on first call on [facility] ([employer] > [facility] > [facility]> select appropriate resident) with any issues/concerns; this note does not necessarily reflect who is currently director medical economics documented in this encounter [facility] 04-13-2024 Hospital Discharge instructions Deborah Neves RN - 04/13/2024 10:57 AM EDT Images from the original note were not included. LAB WORK EVERY SATURDAY Next Steps: Follow up on 04/20/2024 Instructions: Please arrive every Saturday at your local hospital/lab for blood work. Results will need faxed to ID at [phone] IMPORTANT: Automated Post Discharge Call Patient Information As part of your care, we will call you at the primary number we have on file, the day after you are discharged at 9:30 a.m. to check on you. Please expect a two-minute automated telephone call from the hospital. This call will come from [phone]. If you are unable to answer or do not receive the automated call, please call [phone] to complete this important evaluation. By answering the phone evaluation, a [facility] nurse will be notified if you have any questions or concerns and call you back. If you have an immediate medical need call your doctor s office, or if you have a medical emergency call 911. Your Crew Leader/Control Room Operator (PCRM) has arranged your appointments for follow up based on your preference of where you would like to continue your care. If you are unable to attend appointments that have been arranged for you, it is your responsibility to call to reschedule at least 48 hours prior to the appointment date. Your After Visit Summary (AVS) has provided you with instructions for your discharge. It is your responsibility to ask questions if you have any. Please contact your medical care team at the numbers listed if you should have any additional questions. CONTACTS: EVENING/WEEKEND CONTACT For evening and weekend hours if you have urgent problems: Please call the office to speak with the after hours nurse, if no response, please call and ask the gridcap machine operator to page the Urology resident director medical economics. EMERGENCY For an emergency, call 911 DR MAURER'S OFFICE Hours: Saturday - Saturday 8:00am - 4:30 pm ADDITIONAL CONTACTS: If you have any questions about your discharge plan Saturday-Saturday between the hours of 7:30 am- 4:00 pm, please call : Deborah Rowley [phone] ADDITIONAL RESOURCES: For more information about your cancer diagnosis, treatment, and support, many resources are available: [email or web address] - THE [facility] INFORMATION: Call to request information or check hours. - [facility]: [facility]: or , or WWW.Simtrol. Additional resources in [facility] include the following: -THE [employer]: [facility] . -THE [facility]: National Resources: -[employer] (ACS), WWW.CANCER.ORG [place] toll free #: 2-560-BGY-[facility]5 [place] toll free #: 8-414-EYD-[place]. -NATIONAL COMPREHENSIVE CANCER NETWORK (NCCN) Ph: 851-045-KYME Internet: WWW.NCCN.ORG - [facility] (NCI) Ph: 769-6-ZVQDVL Internet: WWW.NCI.GOV. [facility] ([facility]): [phone]. Can help with medical supplies, equipment, food, medication assistance, transportation, wigs. [facility] only. [facility] On [facility] (formerly [facility], [facility]1983): [phone]. Database of resources in [facility] that is not specific to people with cancer diagnosis. Can help with food, shelters, utility assistance, transportation, mental health. Rx for [place]: 6-252-Jj-4-[place] or . Prescription assistance [employer] Programs [employer] offers a wide range of programs to support patients, families and caregivers during and after cancer. These include support groups, educational classes, expressive arts programs, workshops, and special events. These programs provide help with healing and recovery. For more information, or to sign up for a group or program, you can visit The [facility] website at [email or web address], email [employer] at [email or web address] or call one of the following: [facility] Department: [phone] The [facility] Line: [phone] or [phone] (toll free) Educational Classes and Workshops - Classes cover topics important to those who have been affected by cancer. Survivors learn about common problems related to treatment and recovery. They also receive information about how to improve their health and well-being. Classes are taught by clinical experts and include information and activities to help survivors live well, through and beyond cancer. Exercise Programs - Exercise can help with the side effects caused by cancer and cancer treatments. These side effects may include changes in flexibility, muscle tone and strength, energy, range of motion, balance, pain management and edema. Exercise programs shared in these classes can be adjusted based on your level of fitness. Music-Based Services - Music-based services use music to help patients relax, express their feelings and cope with their illness. Board Certified Music Therapists may use a number of musical activities when working with a patient. These may include singing, listening to music, writing songs, playing instruments and looking at song lyrics. Art-Based Services - Art making can be a powerful way to process feelings related to a cancer diagnosis. It can deepen insight, provide inspiration, reduce stress and improve well-being. Services are offered by a Board Certified Art Therapist. Mind, Body, Spirit Programs - These programs give survivors a chance to explore meditation, guided imagery, mindfulness and stress reduction skills to help cope with cancer. Nutrition Programs - Experts share information on nutrition and the connection between diet and cancer. Diets rich in plant-based foods can help lower your risk for cancer and is important for healthy survivorship. Families, Teens and Children - These programs are for children, between 5-18 years old, who have a loved one with cancer. Programs cover a variety of topics and offer a supportive and safe setting where families, teens and children can learn about cancer, talk about the challenges of a cancer diagnosis and learn coping skills. Young Adult Cancer Survivors - These programs are for young adult cancer survivors between the ages of 18-39. Programs focus on building peer connections with other young adult cancer survivors and developing healthy lifestyle practices that aid wellness and coping. Special Programs for Cancer Survivors - Special programs and events are held throughout the year for patients and their families. Conferences and activities during survivor and caregiver months are some of the programs offered to help survivors learn how to have the best health possible over the skilled nursing. Support Groups - [facility] offers many support groups for both patients and their families. The groups are led by clinical experts. The groups available are: Adult Grief Blood and Marrow Transplant Brain Tumors Breast Cancer Caregiver Support Group Gastrointestinal Cancers General Cancers Hematology Leukemia and Lymphoma Living with Advanced Cancer Lung Cancer Melanoma Oral, Head and Neck Cancer Prostate Cancer Sarcoma Thyroid Cancer Additional Support Programs You may also watch [facility] programs and events by visiting our video library at go.[facility]/JCFLvideos. December 17, 2019. The [facility] [place] - [facility] and [facility]odie [facility]. This handout is for informational purposes only. Talk with your doctor or health care team if you have any questions about your care. For more health information, call the Patient and Family Resource Center at [phone] or visit cancer.[facility]/PF Genitourinary () and Urology Support Group Second Saturday of every month 12:00p.m.-1:00p.m. Virtual This online group is open to individuals with renal, bladder, penile, urethral, and testicular and rare urology cancers. Group is available before, during and after treatment to share and connect with others who have similar health concerns. Facilitated by licensed professionals at [facility]. A one-time registration is required. To register, scan the QR code or visit [email or web address].[facility]/supportgroups Call [facility] at [phone] for more information. Deborah Neves RN - 04/14/2024 9:38 AM EDT Outpatient ORAL Antibiotic Therapy (OOAT): Diagnosis: Skin and Soft Tissue Infection (SSTI) Post-operative pelvic fluid collections with polymicrobial culture growth including Mucor from L drain - Grew from old drain in the L inguinal area, this drain isnt really having output since it was put in per pt. He is afebrile and HDS. Old drain has been removed since this AM. IR obtained cultures while putting new drain in the L groin, no growth on bacterial culture and fungal cultures are pending. Polymicrobial drain cx: taken from old drains PsA, E faecalis, and Strept viridans Antibiotic(s) with dose: The dosing of these antibiotics is based on today's PK/PD calculations and is subject to change. Please evaluate the patient's medication list and carefully verify their dosing, and infusion rate prior to discharge. Do not hesitate to call the on-call ID Team with any questions. Estimated Creatinine Clearance: 101 mL/min (by C-G formula based on SCr of 1 mg/dL). - Oral Antibiotics: Ciprofloxacin 750 mg PO every 12 hours Amoxicillin-Clavulanate 875-125 mg PO every 12 hours Isavuconazole 372 mg PO every 8 hours x 6 doses, then 372 mg PO every 24 hours Duration of Therapy: Total Duration of therapy: 6 weeks Other: Ciprofloxacin - Start Date: 04/11/24; Stop Date: 05/25/24 (tentative) Other: Amoxicillin-Clavulanate - Start Date: 04/11/24; Stop Date: 05/25/24 (tentative) Other: Isavuconazole - Start Date: 04/12/24; Stop Date: 05/25/24 (tentative) Does Patient Need Oral Antibiotic Therapy at the End of Parenteral Therapy: N/A OPAT ID Providers: (ID Attending): Dr. Adryan Velazquez (ID Fellow): Dr. Isa Mao Labs: Please have the Home Care Company or Extended Care Facility obtain the following labs while on the above antibiotics and fax results to [phone], attention (ID Attending): Dr. Adryan Velazquez and (ID Fellow): Dr. Isa Mao - Chem-6 (Including serum creatinine) without Glucose every Saturday - CBC with differential every Saturday - Hepatic Function Panel every Saturday Imaging: Yes: Prior to discharge, the patient should have CT-A/P with IV contrast to be scheduled on 05/11/24 (prior to ID Appointment on 05/19/2024)) Follow-up: Yes - Patient should follow-up in the ID Clinic (Please ensure patient is enrolled in [facility] prior to discharge) Central Access: Can Central Access be removed at the end of therapy: NA Additional Notes: Please notify ID Team 1 of any new positive culture results from those that are still pending Final duration of antimicrobial therapy to be determined based on clinical and radiographic follow-up Patient should follow-up in the [facility] with Dr. Lilo Mao on 05/19/2024 at 9 AM Deborah Neves RN - 04/13/2024 10:56 AM EDT Activity as tolerated. BIANCA Ulloa - 04/13/2024 10:56 AM EDT Controlled Carbohydrate Diet This diet controls carbohydrate intake to help manage and maintain consistent blood glucose levels. Simple sugars are limited and carbohydrate intake is balanced throughout the day. Avoid adding salt to your food and use heart healthy fats such as canola or olive oil. Hydrate well, drink plenty of fluids. Deborah Neves RN - 04/13/2024 10:56 AM EDT NOTIFY PHYSICIAN: FEVER/CHILLS/FLU - Temperature greater than 100.4 degrees F and/or chills. - Signs of cold or flu. NAUSEA & VOMITING - Persistent nausea and vomiting - Inability to keep medication down - Inability to keep fluids down SYMPTOMS OF WOUND INFECTION - Increase in pain in or around wound. - Change in the amount of drainage. - Change in the color of drainage. - Change in the odor of drainage. - Warmth in the tissues around the wound. - Red streaks on the skin near the wound. - Fever - Incision separates/opens up SYMPTOMS OF DVT ( Deep Vein Thrombus, or Blood Clot) -Any Tender, Swollen, Or Reddened Areas From Your Groin To Your Heels -Numbness Or Tingling In Groin Or Calf -The Skin On Your Leg Looks Pale Or Blue Or It Feels Cold To Touch -Numbness Or Tingling In Groin Or Calf -Any Shortness Of Breath -Chest Pain SYMPTOMS OF UTI ( Urinary Tract Infection) - Urine That Is Cloudy And/Or Has Foul Odor - Urge To Urinate More Often - Burning Sensation - Fever - Incontinence - Blood In Urine UNRELIEVED PAIN - Increased or unrelieved pain Joann Pereira APRN-MIXER ATTENDANT - 04/13/2024 10:57 AM EDT Images from the original note were not included. Please call Dr. Maurer office once drain amount is less than 30 ml a day ROSA MARIA Drain: Apply Dry Dressing Daily: Wash your hands well with soap and water before and after doing your dressing change. Follow your instructions and change the dressing around your tube each day or as needed to keep it dry. ROSA MARIA Drain Care: Empty, measure and record the amount of drainage twice daily, or more often, if needed. Call if drainage becomes foul-smelling. If you have two drains, chela drainage amounts for drain A and drain B. Change drainage tube dressing each day and anytime it is wet. Clean around the tube exit site as instructed, and apply a clean dressing. Gently squeeze drain tubing(s) starting near where it enters your skin and moving down the length of the tubing toward the drain collection device twice daily to keep clots loosened. Call if leakage of fluid persists from drainage tube exit site(s), and if you are not able to clear the clots down tube. Call if drain will not hold suction. Wear an old belt into the shower and pin your drain container to it. Follow these steps to empty the ROSA MARIA drain: Wash your hands with soap and water. Dry your hands and put on clean gloves. Place a waterproof pad or towel under the ROSA MARIA drain to soak up any spills. Place the bulb lower than the wound to prevent fluid from going back into your body. Check the bulb for any holes or cracks. Remove the plug at one side of the bulb and pour the fluid into a measuring container. Do not touch the tip of the spout with the mouth of the collection cup or anything else. This keeps germs from getting inside the bulb and tubing. Clean the plug with a cotton ball dipped in alcohol, or an alcohol swab. Squeeze the bulb tightly while the plug is still off. Do not squeeze the bulb if the plug is in place. While the bulb is being squeezed, put the plug back to seal the bulb. If you cannot squeeze it and plug it at the same time, ask someone for help. You may also place the bulb on a hard surface, such as a table. Use your elbow or hand to press down hard on the bulb, and then stick the plug in it. Measure the amount of fluid that came out of the ROSA MARIA drain bulb. Write down the amount, color, and odor of the fluid, and the date and time that you collected it. Use a piece of paper, a notebook, or ROSA MARIA drainage chart to keep track of this information. Flush the fluid down the toilet. Throw all used supplies in the trash bag along with your gloves. Wash your hands after you are finished FLUID COLLECTION DRAIN: Located in:thigh Care of the fluid collection drain: Record the amount of drainage daily. Please notify the Interventional Radiology office when the amount of drainage is less than 15 ml in a 24 hour period. The drain site can be cleaned with liquid antibacterial soap and water. Change the dressing every other day at a minimum.. Follow up information regarding your fluid collection drain: You had a fluid collection drain placed during this hospital stay. If the drain is still in place at the time of discharge, please review the instructions below. Please contact Interventional Radiology Weekdays at [phone] with any questions or concerns you may have regarding the fluid collection drain. Should you need to contact Interventional Radiology in the evening or on a weekend, please call [phone] and ask the gridcap machine operator to page the Interventional physician vice president director medical economics. Please record your drain output below and take to your follow-up appointments. Date Drain # Drain# Comments AM PM AM PM ml Color: ml Color: ml Color: ml Color: ml Color: ml Color: ml Color: ml Color: ml Color: ml Color: ml Color: ml Color: ml Color: ml Color: ml Color: ml Color: ml Color: ml Color: ml Color: ml Color: ml Color: ml Color: ml Color: ml Color: ml Color: ml Color: ml Color: ml Color: ml Color: ml Color: ml Color: ml Color: ml Color: ml Color: ml Color: ml Color: ml Color: ml Color: ml Color: ml Color: ml Color: ml Color: ml Color: ml Color: ml Color: ml Color: ml Color: ml Color: ml Color: ml Color: ml Color: ml Color: ml Color: ml Color: ml Color: ml Color: ml Color: ml Color: ml Color: ml Color: Please record your drain output below and take to your follow-up appointments. Date Drain # Drain# Comments AM PM AM PM ml Color: ml Color: ml Color: ml Color: ml Color: ml Color: ml Color: ml Color: ml Color: ml Color: ml Color: ml Color: ml Color: ml Color: ml Color: ml Color: ml Color: ml Color: ml Color: ml Color: ml Color: ml Color: ml Color: ml Color: ml Color: ml Color: ml Color: ml Color: ml Color: ml Color: ml Color: ml Color: ml Color: ml Color: ml Color: ml Color: ml Color: ml Color: ml Color: ml Color: ml Color: ml Color: ml Color: ml Color: ml Color: ml Color: ml Color: ml Color: ml Color: ml Color: ml Color: ml Color: ml Color: ml Color: ml Color: ml Color: ml Color: ml Color: ml Color: ml Color: Please record your drain output below and take to your follow-up appointments. Date Drain # Drain# Comments AM PM AM PM ml Color: ml Color: ml Color: ml Color: ml Color: ml Color: ml Color: ml Color: ml Color: ml Color: ml Color: ml Color: ml Color: ml Color: ml Color: ml Color: ml Color: ml Color: ml Color: ml Color: ml Color: ml Color: ml Color: ml Color: ml Color: ml Color: ml Color: ml Color: ml Color: ml Color: ml Color: ml Color: ml Color: ml Color: ml Color: ml Color: ml Color: ml Color: ml Color: ml Color: ml Color: ml Color: ml Color: ml Color: ml Color: ml Color: ml Color: ml Color: ml Color: ml Color: ml Color: ml Color: ml Color: ml Color: ml Color: ml Color: ml Color: ml Color: ml Color: ml Color: Please record your drain output below and take to your follow-up appointments. Date Drain # Drain# Comments AM PM AM PM ml Color: ml Color: ml Color: ml Color: ml Color: ml Color: ml Color: ml Color: ml Color: ml Color: ml Color: ml Color: ml Color: ml Color: ml Color: ml Color: ml Color: ml Color: ml Color: ml Color: ml Color: ml Color: ml Color: ml Color: ml Color: ml Color: ml Color: ml Color: ml Color: ml Color: ml Color: ml Color: ml Color: ml Color: ml Color: ml Color: ml Color: ml Color: ml Color: ml Color: ml Color: ml Color: ml Color: ml Color: ml Color: ml Color: ml Color: ml Color: ml Color: ml Color: ml Color: ml Color: ml Color: ml Color: ml Color: ml Color: ml Color: ml Color: ml Color: ml Color: The following attachments cannot be sent through Care Everywhere.[email or web address] (T[place]anian)Record Sheet: Blood Glucose ([facility]) ([place]anian)documented in this encounter [facility] 04-13-2024 Consult note Associated Order (s): IP CONSULT TO INFECTIOUS DISEASE Consult performed on 04/10. ID Team 1 following. See note by Ludwin Booker (Medical Student) and Dr. Jackson. Note placed to clear consult [facility] Work Phone: 04-13-2024 Consult note Formatting of th is note is different from the original. Vascular Access Procedure Note for Ultrasound Guided PIV Placement Assessment Melodie Medrano Jr. seen and evaluated for peripheral IV insertion using ultrasound guidance. ID band present, allergies verified and patient/nurse questioned of limb precautions. Skin integrity assessed, no evidence of condition that would prevent safe insertion of a peripheral IV with ultrasound. Allergies: No Known Allergies Insertion Ultrasound guided PIV: Peripheral IV placed per aseptic technique under ultrasound guidance on 1st attempt(s). [x]Obtained labs Peripheral IV Line - Single Lumen 04/13/24 013 forearm, anterior, left 22 gauge;1 3/4 in length (Active) 04/13/24 013 Present On Admission : no Guiding Device: ultrasound Lumen 1: Additional Lumens: Lumen 2: Location: forearm, anterior, left Device/Lot Number: [id number] catheter system Gauge/Length: 22 gauge;1 3/4 in length Unsuccessful Insertion Attempts: Unsuccessful Attempt Location/Site: Pain Prevention/Patient Tolerance: distraction;tolerated well Removal: Additional Comments: placed by Rama Olivarez RN Lumen 3: Peripheral IV Present on Admission: (Retired/Read Only) Location: (Retired/Read Only) Device: (Retired/Read Only) Gauge/Length: System Specialist/Lot Number: Unsuccessful Insertion Attempts: (Retired/Read Only) Unsuccessful Attempt Locations: Pain Prevention: Patient Tolerance: Insertion: Removal Indication: Peripheral IV Location - Orientation: Peripheral IV Location: Insertion Site WDL WDL 04/13/24133 Site Preparation/Maintenance site cleansed: chlorhexidine solution;dressing: dry and intact 04/13/24133 Securement catheter stabilization device, secured with;site guard in place 04/13/24133 Date Dressing Changed 04/13/24 04/13/24133 Lumen 1 Patency/Maintenance flushed without difficulty;blood return, able to obtain 04/13/24133 Lumen 1 Cap/Connector Changed/Applied 04/13/24 04/13/24133 Phlebitis 0-->no symptoms 04/13/24133 Infiltration 0-->no symptoms 04/13/24133 Positive blood return noted, flushes easily, no edema, or leakage noted. Stabilization device used to secure IV, occlusive dressing applied. Denies pain at site. Patient tolerated procedure well. Site dated and initialed. Bedside RN notified of procedure completion Education Patient/Family informed to notify nurse of any complications including pain, redness, swelling, or leakage post insertion. Pt safety room check completed prior to exiting room. [x]Call light. [x]Bed locked. [x]Bed low. [x]Tray table within reach. Thank you for allowing our team to participate in the care of this patient. Vascular Access Team [id number] [address] [facility] 04-12-2024 History and physical note Images from the original note were not included. Urology Service History & Physical Chief Complaint Infection Monitoring HPI Melodie Hernandez Mitchell Luther is a 58 y.o. male with PMH DM, HTN, HLD, DVT/PE on Xarelto and melanoma, pT3 penile cancer s/p partial penectomy and 03/06/24 b/l RAIL. Admitted 03/16 for IR drain on 03/20 of right groin/thigh collection Admitted 04/09 for IR drain on 04/10 of left inguinal collection Now Admitted for Mucro sp on drain culture per ID for monitoring He was discharged home 04/11 on a 10 day course of 2 different oral antibiotics (Ciprofloxacin and Augmentin). The patient denies any new fevers, chills, nausea, vomiting, or chest pain. No swelling of drain sites. No necrotic areas. Feels okay otherwise with no additional concerns. Per ID Reviewed cultures that updated as were preliminary as discussed with primary team. Discharged by primary team yesterday on ciprofloxacin and amox/clav based on available data at that time. Of note, there has been additional growth on 04/09/2024, including Mucor spp, and 04/10/2024 bacterial culture finalized without growth (pre-treated with piperacillin-tazobactam and vancomycin); however, this did not included fungal culture. 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 Following readmission, will need evaluation for surgical intervention and can start empiric ambisome 5mg/kg every 24 hours (ASP: [id number]) and can resume previous piperacillin-tazobactam. Please consult ID and ID Team 1 will resume following. With any surgical debridement, send for bacterial, anaerobic, AFB, and fungal cultures as well as pathology with AFB and GMS stains. Could also send drain culture for fungal culture from new left-sided drain. Check his A1C. Past Medical History He has a past medical history of Diabetes mellitus, Essential hypertension, benign, Hyperlipidemia, Melanoma, Penile ca, and Pulmonary embolism. Past Surgical History He has a past surgical history that includes acl reconstruction; foot surgery (Bilateral); vasectomy; back surgery; other surgical (Right); amputation penis partial (N/A, 01/22/2024); lymphadenectomy inguinofemoral robotic (Bilateral, 03/05/2024); and drainage soft tissue percutaneous w/ image guidance (N/A, 03/20/2024). Medications He has a current medication list which includes the following prescription(s): acetaminophen, amlodipine, amoxicillin-clavulanate, vitamin d, ciprofloxacin, cyanocobalamin, medical compression stockings, lisinopril, metformin-xr, metoprolol succinate, omega-3 acid ethyl esters, rosuvastatin, sulfamethoxazole-trimethoprim, tamsulosin hcl, turmeric, and xarelto, and the following Facility-Administered Medications: acetaminophen, acetaminophen, alum/mag hydrox.-simethicone, [START ON 04/13/2024] amlodipine, amphotericin B LIPOSOME (AMBISOME) 500 mg in Dextrose 5%, with overfill 400 mL (total volume) IVPB, [START ON 04/13/2024] amphotericin B LIPOSOME (AMBISOME) 500 mg in Dextrose 5%, with overfill 400 mL (total volume) IVPB, dextrose 5%, insulin lispro AND insulin lispro AND [START ON 04/13/2024] BLOOD GLUCOSE (POC DEVICE) AND BLOOD GLUCOSE (POC DEVICE) AND COMMUNICATION ORDER FOR NURSING CARE: For Blood Glucose LESS THAN 80 mg/dl AND dextrose AND glucose AND NOTIFY PHYSICIAN, Blood Glucose LESS THAN 80 mg/dl AND Carbohydrate counts with meals, diphenhydramine, [START ON 04/13/2024] Lisinopril (PRINIVIL) tablet 30 mg, [START ON 04/13/2024] metoprolol succinate, ondansetron 4mg/2ml OR ondansetron, piperacillin-tazobactam, [START ON 04/13/2024] piperacillin-tazobactam, [START ON 04/13/2024] rivaroxaban, [START ON 04/13/2024] rosuvastatin, sodium chloride 0.9%, sodium chloride 0.9%, [START ON 04/13/2024] sodium chloride 0.9%, [START ON 04/13/2024] tamsulosin hcl. Allergies He has No Known Allergies. Social History He reports that he has quit smoking. His smoking use included cigarettes. He has quit using smokeless tobacco. His smokeless tobacco use included chew. He reports current alcohol use of about 4.0 standard drinks of alcohol per week. He reports that he does not use drugs. Family History family history includes Aneurysm in his father; Cancer- Other in his father; Lung Cancer in his maternal grandmother. Review of Systems 12 point ROS performed. Negative other than what is listed in HPI Physical Exam BP 127/87 (BP Location: Right arm, BP Position: Sitting) Pulse 82 Temp 98.2 F (36.8 C) (Oral) Resp 14 Ht 1.956 m (6' 5) Wt 106.3 kg (234 lb 6.4 oz) SpO2 98% BMI 27.80 kg/m Smoking Status Former Constitutional: NAD, WDWN HEENT: NCAT. Conjunctivae normal MMM Cardiovascular: Regular rate Pulmonary/Chest: Respirations are even and non-labored bilaterally Abdominal: Soft with no distension, tenderness, masses, guarding or CVA tenderness Neurological: A + O x 3, cranial nerves II-XII grossly intact. Extremities: KASH x 4, warm, no clubbing, no cyanosis Skin: [place], warm, dry with no rash Psychiatric: Normal mood and affect Genitourinary: s/p partial penectomy, stable exam, right leg drain with no output, left leg drain with no output, left groin drain with serous output and mild erythema around drain Labs Radiographic Studies No orders to display Assessment Ms. Medrano is a 58 y.o. female with a relevant history of penile cancer s/p multiple drains here for monitoring given mucor sp. Noted on left lower drain culture 04/09. Recommendation per ID. Plan ID: - ID consult - Admission labs - Fungal culture from upper left thigh drain - Zosyn and Amphotericin started 04/12 PM - Will follow up remainder of cultures and ID consult - No current indication for debridement and surgical exploration but will have low threshold if infection progresses HEME: - Xarelto continued, can consider Heparin gtt in AM (1st dose due 04/13) ENDO: - SSI - Strict glucose control - A1c Patient and plan discussed with Cyndy Panchal MD, attending Urologist director medical economics. Richar Oneal MD Urology Resident Pager [phone] Please contact the appropriate covering resident in [facility]. Associated attestation - Cyndy Panchal MD - 04/13/2024 6:48 AM EDT I have independently interviewed and examined the patient and agree with the history, findings, and assessment as documented by Richar Oneal MD, below. I discussed the case with the resident. I have edited the document as appropriate. In addition: Melodie Medrano Jr. is a 58 y.o. male who presents in consultation for drain culture finding of mucormycosis - ID recommended inpatient work-up and treatment. Hence, the patient was direct admitted to the [facility]. Time spent: 50 minutes, over half of which was [id number] for patient counseling and coordination of care. [facility] 04-12-2024 History and physical note Images from the original note were not included. Urology Service History & Physical Chief Complaint Infection Monitoring HPI Melodie Medrano Jr. is a 58 y.o. male with PMH DM, HTN, HLD, DVT/PE on Xarelto and melanoma, pT3 penile cancer s/p partial penectomy and 03/06/24 b/l RAIL. Admitted 03/16 for IR drain on 03/20 of right groin/thigh collection Admitted 04/09 for IR drain on 04/10 of left inguinal collection Now Admitted for Mucro sp on drain culture per ID for monitoring He was discharged home 04/11 on a 10 day course of 2 different oral antibiotics (Ciprofloxacin and Augmentin). The patient denies any new fevers, chills, nausea, vomiting, or chest pain. No swelling of drain sites. No necrotic areas. Feels okay otherwise with no additional concerns. Per ID Reviewed cultures that updated as were preliminary as discussed with primary team. Discharged by primary team yesterday on ciprofloxacin and amox/clav based on available data at that time. Of note, there has been additional growth on 04/09/2024, including Mucor spp, and 04/10/2024 bacterial culture finalized without growth (pre-treated with piperacillin-tazobactam and vancomycin); however, this did not included fungal culture. 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 Following readmission, will need evaluation for surgical intervention and can start empiric ambisome 5mg/kg every 24 hours (ASP: [id number]) and can resume previous piperacillin-tazobactam. Please consult ID and ID Team 1 will resume following. With any surgical debridement, send for bacterial, anaerobic, AFB, and fungal cultures as well as pathology with AFB and GMS stains. Could also send drain culture for fungal culture from new left-sided drain. Check his A1C. Past Medical History He has a past medical history of Diabetes mellitus, Essential hypertension, benign, Hyperlipidemia, Melanoma, Penile ca, and Pulmonary embolism. Past Surgical History He has a past surgical history that includes acl reconstruction; foot surgery (Bilateral); vasectomy; back surgery; other surgical (Right); amputation penis partial (N/A, 01/22/2024); lymphadenectomy inguinofemoral robotic (Bilateral, 03/05/2024); and drainage soft tissue percutaneous w/ image guidance (N/A, 03/20/2024). Medications He has a current medication list which includes the following prescription(s): acetaminophen, amlodipine, amoxicillin-clavulanate, vitamin d, ciprofloxacin, cyanocobalamin, medical compression stockings, lisinopril, metformin-xr, metoprolol succinate, omega-3 acid ethyl esters, rosuvastatin, sulfamethoxazole-trimethoprim, tamsulosin hcl, turmeric, and xarelto, and the following Facility-Administered Medications: acetaminophen, acetaminophen, alum/mag hydrox.-simethicone, [START ON 04/13/2024] amlodipine, amphotericin B LIPOSOME (AMBISOME) 500 mg in Dextrose 5%, with overfill 400 mL (total volume) IVPB, [START ON 04/13/2024] amphotericin B LIPOSOME (AMBISOME) 500 mg in Dextrose 5%, with overfill 400 mL (total volume) IVPB, dextrose 5%, insulin lispro AND insulin lispro AND [START ON 04/13/2024] BLOOD GLUCOSE (POC DEVICE) AND BLOOD GLUCOSE (POC DEVICE) AND COMMUNICATION ORDER FOR NURSING CARE: For Blood Glucose LESS THAN 80 mg/dl AND dextrose AND glucose AND NOTIFY PHYSICIAN, Blood Glucose LESS THAN 80 mg/dl AND Carbohydrate counts with meals, diphenhydramine, [START ON 04/13/2024] Lisinopril (PRINIVIL) tablet 30 mg, [START ON 04/13/2024] metoprolol succinate, ondansetron 4mg/2ml OR ondansetron, piperacillin-tazobactam, [START ON 04/13/2024] piperacillin-tazobactam, [START ON 04/13/2024] rivaroxaban, [START ON 04/13/2024] rosuvastatin, sodium chloride 0.9%, sodium chloride 0.9%, [START ON 04/13/2024] sodium chloride 0.9%, [START ON 04/13/2024] tamsulosin hcl. Allergies He has No Known Allergies. Social History He reports that he has quit smoking. His smoking use included cigarettes. He has quit using smokeless tobacco. His smokeless tobacco use included chew. He reports current alcohol use of about 4.0 standard drinks of alcohol per week. He reports that he does not use drugs. Family History family history includes Aneurysm in his father; Cancer- Other in his father; Lung Cancer in his maternal grandmother. Review of Systems 12 point ROS performed. Negative other than what is listed in HPI Physical Exam BP 127/87 (BP Location: Right arm, BP Position: Sitting) Pulse 82 Temp 98.2 F (36.8 C) (Oral) Resp 14 Ht 1.956 m (6' 5) Wt 106.3 kg (234 lb 6.4 oz) SpO2 98% BMI 27.80 kg/m Smoking Status Former Constitutional: NAD, WDWN HEENT: NCAT. Conjunctivae normal MMM Cardiovascular: Regular rate Pulmonary/Chest: Respirations are even and non-labored bilaterally Abdominal: Soft with no distension, tenderness, masses, guarding or CVA tenderness Neurological: A + O x 3, cranial nerves II-XII grossly intact. Extremities: KASH x 4, warm, no clubbing, no cyanosis Skin: [place], warm, dry with no rash Psychiatric: Normal mood and affect Genitourinary: s/p partial penectomy, stable exam, right leg drain with no output, left leg drain with no output, left groin drain with serous output and mild erythema around drain Labs Radiographic Studies No orders to display Assessment Ms. Medrano is a 58 y.o. female with a relevant history of penile cancer s/p multiple drains here for monitoring given mucor sp. Noted on left lower drain culture 04/09. Recommendation per ID. Plan ID: - ID consult - Admission labs - Fungal culture from upper left thigh drain - Zosyn and Amphotericin started 04/12 PM - Will follow up remainder of cultures and ID consult - No current indication for debridement and surgical exploration but will have low threshold if infection progresses HEME: - Xarelto continued, can consider Heparin gtt in AM (1st dose due 04/13) ENDO: - SSI - Strict glucose control - A1c Patient and plan discussed with Cyndy Panchal MD, attending Urologist director medical economics. Richar Oneal MD Urology Resident Pager [phone] Please contact the appropriate covering resident in QGENDA. Associated attestation - Cyndy Panchal MD - 04/13/2024 6:48 AM EDT I have independently interviewed and examined the patient and agree with the history, findings, and assessment as documented by Richar Oneal MD, below. I discussed the case with the resident. I have edited the document as appropriate. In addition: Melodie Medrano Jr. is a 58 y.o. male who presents in consultation for drain culture finding of mucormycosis - ID recommended inpatient work-up and treatment. Hence, the patient was direct admitted to the [facility]. Time spent: 50 minutes, over half of which was [id number] for patient counseling and coordination of care. documented in this encounter [facility] 04-11-2024 Nurse Note RN went over all discharge instructions with patient. RN discussed all drain/dressing care instructions, all follow-up appointments, and when to call should any concerns arise (wound infection symptoms, unrelieved pain, etc.). Patient stated understanding and all questions were answered at this time. RN attempted to educate patient about flushing his new groin drain, draining all ROSA MARIA drains, and how to document drain output. Patient denied these attempts, stating he had already been educated about said education attempts. Patient stated he was knowledgeable in how to drain his ROSA MARIA drains, how to perform his dressing changes, and how to flush his groin ROSA MARIA drain. RN provided patient with materials required for ROSA MARIA drain dressing changes and materials to flush his drains. Specific materials provided were Normal Saline flushes, measuring cups for output, alcohol swabs, biopatches, gauze pads, and blue tape. Patient stated he prefers the biopatches and gauze pads for his drain dressings. RN removed patient's peripheral IV per policy, catheter was intact. Patient left floor with all belongings, all wound/dressing care supplies, all prescriptions, and all discharge instructions in wheelchair with IN HOUSE CRA. Patient will be driven home by his . [facility] 04-11-2024 Miscellaneous Notes RN went over all discharge instructions with patient. RN discussed all drain/dressing care instructions, all follow-up appointments, and when to call should any concerns arise (wound infection symptoms, unrelieved pain, etc.). Patient stated understanding and all questions were answered at this time. RN attempted to educate patient about flushing his new groin drain, draining all ROSA MARIA drains, and how to document drain output. Patient denied these attempts, stating he had already been educated about said education attempts. Patient stated he was knowledgeable in how to drain his ROSA MARIA drains, how to perform his dressing changes, and how to flush his groin ROSA MARIA drain. RN provided patient with materials required for ROSA MARIA drain dressing changes and materials to flush his drains. Specific materials provided were Normal Saline flushes, measuring cups for output, alcohol swabs, biopatches, gauze pads, and blue tape. Patient stated he prefers the biopatches and gauze pads for his drain dressings. RN removed patient's peripheral IV per policy, catheter was intact. Patient left floor with all belongings, all wound/dressing care supplies, all prescriptions, and all discharge instructions in wheelchair with IN HOUSE CRA. Patient will be driven home by his . Prior beginning of shift assessment remains unchanged throughout shift, if any change(s) in assessment, it will be seen/ relfected in flowsheets. Will continue with plan of care. Problem: Adult Inpatient Plan of Care Goal: Plan of Care Review Outcome: Progressing Goal: Patient-Specific Goal (Individualized) Outcome: Progressing Goal: Absence of Hospital-Acquired Illness or Injury Outcome: Progressing Goal: Optimal Comfort and Wellbeing Outcome: Progressing Goal: Readiness for Transition of Care Outcome: Progressing Urology team paged as patient is c/o 6/10 groin pain and does not want Tylenol. No other PRN pain medications available. RN to monitor. 04/10/24 5809 Barriers to Discharge Barriers to Discharge Complex Disposition Explanation of Barriers The patient is scheduled for IR procedure today at 1600. Discharge Planning Expected Discharge Disposition Home Anticipated Services at Discharge Wound/drain Vian[facility] Inpatient [facility] Planning Note Patient discussed in medical rounds. Anticipate discharge to home with family support when medically stable. Anticipated Services for Discharge The patient will have support from spouse upon discharge. Lines/Tubes/Drains/Wounds/Supplie s ROSA MARIA drain x 2. Awaiting IR procedure; unsure if he he have a drain placed vs aspiration. Education Needs: The patient has been managing ROSA MARIA drains at home, prior to admission, Consults/Recommendations: Infectious Disease- awaiting recommendations. Hematology- awaiting recommendations. The patient is on Xarelto at home. Medications No barriers anticipated in obtaining discharge medications. No prior authorizations anticipated. Durable Medical Equipment No new needs anticipated. The patient ambulates independently. Follow Up(s): Future Appointments Date Time Provider Department Center 04/13/2024 8:30 AM MD ROE Kerr Will handoff be needed at discharge to an Ambulatory PCR? Yes Referral to be sent to [facility], phone number [phone]. Status: on care team, referral sent. AVS Status: Updated and pending as of 04/10 at 1344 PCRM will continue to follow with medical team for any additional discharge planning needs. Deborah Neves, DEON, ACM-RN Patient Care Chef Teacher Pager# [phone] For evening and weekend discharge assistance please page the director medical economics PCRM at [phone]. INFECTIOUS DISEASE ID Team 1 CONSULT NOTE Referring MD: Izaiah Maurer MD Reason for Consult: bilateral lymphadenectomy, swelling and erythema on L side. On vanc/zosyn. Chief Complaint: bilateral groin swelling, fever, chills HPI: Melodie Medrano Jr. is a 58 y.o. male with a PMH of DM2, HTN, HLD, melanoma, penile cancer s/p resection including inguinofemoral lymphoidectomy, and pulmonary edema.. He presented on 04/09/2024 to the [facility] ED after a 4 day history of L valerie swelling and home fever of 102F. He was told to come to the ED by his urologist who was going to see him yesterday for routine follow up appointment. Previously admitted on 03/20 for right inguinal swelling, was placed on vanc and zosyn, cultures from ROSA MARIA drain showed staphylococcus epi growth. Blood cultures showed no growth. Was discharged home on bactrim, which was finished last , 04/02/24. He reports resolution of his symptoms since being discharged from the hospital last on 03/20/24, but on Saturday he started having pain and swelling in his left groin and thigh and states it feels similar to previously when he had an infection of his right groin. Patient states that he has had about 5 infections ever since his lymphadenectomy and penile resection in January and feels like the infection has never really gone away. He also states that he has been having some urinary hesitancy and burning in the past two weeks. He states since Saturday he has had some fever, erythema, and swelling on his left groin and thigh, but it is improving since yesterday. He states that his ROSA MARIA drains have been draining straw colored cloudy fluid. Says that abut 400 ml of fluid was drained off today. He states he has no joint or back pain. Antibiotics Received: Since 02/04: clindamycin, ancef, keflex,zosyn, bactrim, vanc. On current admission he has received: zosyn, vanc Exposures and Risk Factors Sick Contacts: n/a Occupation: n/a Travel: n/a Animal Contact or Insect Bites: None TB risk factors: n/a Occupational or Environmental Exposures: n/a Implants/hardware: 2 ROSA MARIA drains Drug use: None Sexual Activity: n/a Other: n/a Review of Systems - Patient denies the following Weight Loss (Unwanted), Dyspnea, Nausea, Vomiting, Diarrhea, and Back Pain, however admits to Fever, Chills, Fatigue, Urinary Hesitancy, Dysuria, Hip Pain, Swelling , and Erythema Past Medical History: Diagnosis Date Diabetes mellitus Essential hypertension, benign Hyperlipidemia Melanoma left rib cage Penile ca Pulmonary embolism Past Surgical History: Procedure Laterality Date DRAINAGE SOFT TISSUE PERCUTANEOUS W/ IMAGE GUIDANCE N/A 03/20/2024 Laterality: N/A; Surgeon: Kisha Quarles DO; Location: [facility] INTERVENTIONAL RADIOLOGY (VIR) LYMPHADENECTOMY INGUINOFEMORAL ROBOTIC Bilateral 03/05/2024 Laterality: Bilateral; Surgeon: Izaiah Maurer MD; [facility] MA[facility] OR AMPUTATION PENIS PARTIAL N/A 01/22/2024 Laterality: N/A; Surgeon: Izaiah Maurer MD; [facility] O[facility] PERIOP ACL RECONSTRUCTION BACK SURGERY FOOT SURGERY Bilateral reconstructive OTHER SURGICAL Right undescended testicle VASECTOMY Social History Socioeconomic History Marital status: Tobacco Use Smoking status: Former Types: Cigarettes Smokeless tobacco: Former Types: Chew Substance and Sexual Activity Alcohol use: Yes Alcohol/week: 4.0 standard drinks of alcohol Types: 4 Shots of liquor per week Drug use: Never Social Determinants of Health Food Insecurity: No Food Insecurity (03/17/2024) Hunger Vital Sign Worried About Running Out of Food in the Last Year: Never true Ran Out of Food in the Last Year: Never true Transportation Needs: No Transportation Needs (03/17/2024) PRAPARE - Transportation Lack of Transportation (Medical): No Lack of Transportation (Non-Medical): No Intimate Partner Violence: Not At Risk (03/17/2024) Humiliation, Afraid, Rape, and Kick questionnaire Fear of Current or Ex-Partner: No Emotionally Abused: No Physically Abused: No Sexually Abused: No Housing Stability: Unknown (03/17/2024) Housing Stability Vital Sign Unable to Pay for Housing in the Last Year: No Homeless in the Last Year: No Family History Problem Relation Age of Onset Aneurysm Father Cancer- Other Father melanoma Lung Cancer Maternal Grandmother Medications Prior to Admission Medication Sig Dispense Refill Last Dose amLODIPine 5 MG tablet Take 1-2 tablets by mouth daily. 04/09/2024 Cholecalciferol (Vitamin D) 25 MCG (1000 UT) tablet Take 1 tablet by mouth daily. 04/09/2024 cyanocobalamin 100 MCG tablet Take 1 tablet by mouth daily. 04/09/2024 lisinopril 30 MG tablet Take 1 tablet by mouth daily. 04/08/2024 metFORMIN-XR 500 MG Tab SR 24 HR Take 1 tablet by mouth 2 times daily. 04/09/2024 Metoprolol succinate 50 MG tablet XL Take 1 tablet by mouth daily. 04/09/2024 omega-3 acid ethyl esters 1 g capsule Take 2 capsules by mouth 2 times daily. 04/09/2024 Rosuvastatin 10 MG tablet Take 1 tablet by mouth daily. 04/09/2024 Sulfamethoxazole-trimethoprim 800-160 MG per tablet Take 1 tablet by mouth 2 times daily for 14 days. 28 tablet 0 04/08/2024 Tamsulosin HCl 0.4 MG capsule Take 1 capsule by mouth daily 30 capsule 11 04/09/2024 Turmeric (QC TUMERIC COMPLEX PO) Take by mouth. 04/09/2024 Xarelto 20 MG tablet Take 1 tablet by mouth daily with dinner. You may resume taking this medication as previously prescribed after discharge. For refills contact Dr. Juarez. 30 tablet 2 04/09/2024 Elastic Bandages & Supports (Medical Compression Stockings) Misc 1 Each by Unknown route daily. 31 Each 3 Unknown [DISCONTINUED] Acetaminophen 325 MG tablet Take 2 tablets by mouth every 6 hours for 7 days. 56 tablet 0 [DISCONTINUED] Cyclobenzaprine 5 MG tablet Take 1 tablet by mouth 3 times daily as needed for Muscle spasms or Moderate Pain for up to 7 days. 15 tablet 0 [DISCONTINUED] Gabapentin 100 MG capsule Take 1 capsule by mouth 3 times daily for 7 days. 21 capsule 0 [DISCONTINUED] oxyCODONE 5 MG tablet Take 1 tablet by mouth every 6 hours as needed for Moderate Pain or Severe Pain for up to 7 days. 10 tablet 0 [DISCONTINUED] Polyethylene Glycol 3350 (PEG 3350) 17 GM/SCOOP Powder Take 17 g by mouth daily. 238 g 0 Inpatient Medications: famotidine (PF) 20 mg Intravenous Q12H Or faMOTIdine 20 mg Oral Q12H piperacillin-tazobactam 4.5 g Intravenous Q8HNS Polyethylene glycol 17 g Oral Daily vancomycin 15 mg/kg (Adjusted) Intravenous Q12HNS No Known Allergies OBJECTIVE FINDINGS: Vital Signs (24hrs): Temp: [97.5 F (36.4 C)-98.6 F (37 C)] 98.6 F (37 C) Pulse (Heart Rate): [65-77] 65 Resp Rate: [12-18] 16 BP: (117-136)/(61-84) 133/78 O2 Sat (%): [95 %-98 %] 95 % Weight: [106.1 kg (234 lb)] 106.1 kg (234 lb) Physical Exam: GEN: Awake, resting comfortably, NAD HENT: MMM. No oral lesions. Fair dentition. NECK: Supple, no cervical lymphadenopathy or meningismus. CARDIO: RRR, no murmur. PULM/CHEST: CTAB. No increased work of breathing ABD: Normal bowel sounds, soft, not tender or distended. No hepatosplenomegaly. MSK: No swelling, increased warmth, or erythema of major joints. No pedal edema. Two collections of fluctuance on left inguinal and upper anterior thigh. No erythema or warmth. SKIN: No rashes. Hands and fingers appear normal. NEURO: AOx3. CN II-XII grossly intact. No focal deficits. Lab Results Component Value Date WBC 4.86 04/10/2024 HGB 11.1 (L) 04/10/2024 HCT 32.7 (L) 04/10/2024 PLATELET 169 04/10/2024 MCV 87.2 04/10/2024 Lab Results Component Value Date RBCDISTRIBU 14.0 04/10/2024 GRNLOCYT 72.2 04/09/2024 LYMPHOCYT 17.1 04/09/2024 MONOCYTELEC 8.3 04/09/2024 EOSINOPHILS 1.7 04/09/2024 BASOPHILS 0.3 04/09/2024 LYMPHOCYTABS 1.57 04/09/2024 EOSINOPHLABS 0.16 04/09/2024 PLATELET 169 04/10/2024 MPV 9.0 04/10/2024 Bun/Creat/Cl/CO2/Glucose: 17/1.11/102/25/222 (04/10 146) Na/K+/Phos/Mg/Ca: 136/3.9/4.0/1.7/8.4 (04/10 146) Estimated Creatinine Clearance: 91 mL/min (by C-G formula based on SCr of 1.11 mg/dL). No results found for: ALT, TRANSFERASEA, AST, GGT, GAMMAGT, ALKPHOS, BILITOTAL, BILIDIRECT No results found for: SEDRATE No results found for: CRP Urinalysis Lab Results Component Value Date SPGRVTYUR >1.045 (H) 03/16/2024 GLUCOSEURINE 250 mg/dL (A) 03/16/2024 KETONESURINE Negative 03/16/2024 BLOODURINE Negative 03/16/2024 NITRITESURIN Negative 03/16/2024 LEUKOCESTUR Negative 03/16/2024 WBCURINE 11 - 20 (A) 03/16/2024 RBCURINE 0-2 03/16/2024 BACTERIAURIN ABSENT 03/16/2024 Microbiology and Other Significant ID Labs: (personally reviewed) L ROSA MARIA Culture: enterococcus faecalis, pseudomonas putida, strep viridans. R ROSA MARIA Culture: pseudomonas putida, enterococcus faecalis WBC: 4.8k Imaging: (personally reviewed) -CTAP: Persistent bilateral inguinal collections, significantly increased in size on left. Thick peripheral wall, reflecting possible superimposed infection. Drain in left thigh does not transverse inguinal collection. ASSESSMENT: Melodie Cullenjas Luther is a 58 y.o. 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 Bilateral inguinal collections -Culture of ROSA MARIA drains growing enterococcus faecalis, pseudomonas putida, strep viridans. Left ROSA MARIA drain on CT does not look to be placed correctly. No systemic symptoms currently. Will monitor sensitivities. -Will need direct samples from IR tap, to make sure we are not picking up contaminants present in the drain. 2. UTI/Cystitis -Patient is complaining of hesitancy and pain with urination. Patient more susceptible to UTI/cystitis due to anatomy. Will check UA/culture. RECOMMENDATIONS: Drainage and culture of fluid collections w/ IR scheduled today @4pm. Evaluate replacement of ROSA MARIA drains Zosyn 4.5 g 25 ml/hr q8h Vancomycin 15mg/kg q12h Obtain UA/culture Estimated Creatinine Clearance: 91 mL/min (by C-G formula based on SCr of 1.11 mg/dL). Patient was staffed with Dr. Shahzad Jackson ID Team 1 Will continue to follow with you. If you have any questions, please reach out to the ID Team 1 pager found in QGenda below. The ID Team pagers are available - Saturday through Saturday from 7:00 am to 06:00 pm. For emergent or after hour issues, please call the on-call ID Fellow pager. QGenda - [facility] Infectious Disease - Ludwin Booker, MS4 Associated attestation - Augusto Jackson MD, PhD - 04/10/2024 4:21 PM EDT ID Staff: I have interviewed and examined patient independently (04-10-24) and have discussed case with the ID team. I agree with the findings and recommendations as documented above by Student Dr. Booker. Pt is has g/o penile cancer s/p recent s/p resection including inguinofemoral lymphoidectomy complicated by bilateral inguinal fluid collections and c/f abscesses. He has been started on vanco and pip-tazo and scheduled for placement of drain into left sided collection. Please obtain new cultures from new drain. Augusto Jackson MD, PhD Division of Infectious Diseases [facility] On admission to [facility], from ED a dual RN initial assessment of skin condition was performed by TaiRN and LOUIS Hilton. Skin Assessment: Skin not within defined limits. - Photo taken and uploaded into notes in IHIS: Yes Pt is free of skin breakdown on coccyx and bony prominence. Some redness and swelling around Left groin/thigh Moreno Score: 22 LDA Added:No documented in this encounter [facility] 04-11-2024 History of Present illness Narrative Images from the original note were not included. [facility] ([facility] Note: Non-Verbal Med Rec [facility] received the following discharge prescription(s): Total cost is $2.22. I have reviewed the Discharge Rx Reconciliation Report. The discharge prescription(s) will be tubed to the patient on 04/11/2024. Jc Wright RPh,PharmD Specialty ([place]) [phone] [facility] [phone] [facility] Bedside Delivery [phone] [facility] [phone] [facility] Bedside Delivery [phone] [facility] [phone] [facility]side Delivery [phone] [place] [phone] [place] [phone] Brief ID Update Note Chart reviewed, but patient not seen or examined. Paged re: discharge on oral antibiotic regimen based on cultures from drains with repeat drain placed in left large collection on 04/10/2024 with cultures pending. Initially recommended awaiting susceptibilities, which then later returned this morning from cultures collected from preexisting drains. Recommendations If patient ready for discharge per primary team, could consider PO Ciprofloxacin 750mg BID (for P putida) and PO Amoxicillin-Clavulanate 875-125mg BID (for E faecalis, S viridans) for 10-14 days or until Urology follow-up to monitor response/need for extension given drains in place for source control, though collections large. Primary team will need to follow-up cultures for any additional growth, as 04/09/2024 cultures have not finalized nor has culture from 04/10/2024. Additionally, S viridans group susceptibility is not known though unclear how pathologic here (given collection from existing drains) but is possible it could possibly not be covered by the Amoxicillin-Clavulanate. If remaining admitted, would continue IV antibiotics, as recommended by ID Team 1. ID Team 1 will continue to follow while admitted. If you have any questions, please reach out to the ID Team 1. The ID Team pagers are available - Saturday through Saturday from 7:00am to 6:00pm. For emergent or after hour issues, please call the on-call/1st-call ID fellow pager. QGenda - [facility] - Jerry Perez MD Infectious Disease Fellow, PGY-6 Department of Pharmacy Pharmacokinetics Progress Note Patient: Melodie Medrano Room/Bed: 77812/A Assessment and Plan: Based upon drug level assessment and interpretation (steady state), I have changed the vancomycin dose and/or dosing interval to 1750 mg IV every 12 hours to start at 1900 on 04/11/24. A pharmacist will continue to follow and order drug levels and adjust dosing as clinically appropriate. I have modified the orders in IS to reflect the above plan. Vancomycin regimen at time of level: Vancomycin 1500 mg IV every 12 hours Last Dose Administered: Dose: Date: Time: 1500 mg 04/10/24 18:25 Levels: 9.1 mcg/mL drawn at 05:49 on 04/11/24. Level was a trough. Most Recent Labs: WBC Count Date Value Ref Range Status 04/11/2024 3.82 3.73 - 10.10 K/uL Final BUN Date Value Ref Range Status 04/11/2024 11 7 - 25 mg/dL Final Creatinine Date Value Ref Range Status 04/11/2024 0.82 0.70 - 1.30 mg/dL Final I/O last 3 completed shifts: In: 3380.6 [I.V.:2571.1; Irrigation:10; IV Piggyback:799.5] Out: 2735 [Urine:2200; Other:535] Estimated Creatinine Clearance: 124 mL/min (by C-G formula based on SCr of 0.82 mg/dL). Ongoing Vancomycin Monitoring: The following trough goal is recommended for ongoing therapy based on the suspected/confirmed source of infection and today s calculations: Goal trough range: 15-20 mcg/mL If therapy is to be continued after discharge, please contact pharmacy for appropriate dosing. Please feel free to contact me with any further questions. Name: Michele Atkins RPH Phone: [phone] Date/Time: 04/11/2024 6:52 AM Urology Service Progress Note Last 24 Hours Patient was admitted to the ED due to swelling and erythema in the left inguinal region. CTAP found collection in the left groin and thigh, as well as RLL segmental artery (patient started on ggt heparin) S/p Left groin drainage with IR on 04/10 ID following and agree with rohini and oriana for now and following up drain cx S: Pain and swelling have improved since admission. Reports back is sore during admission. Non tender to touch Physical Exam Gen: NAD HEENT: NCAT CV: Hemodynamically normal Chest: No increased work of breathing Abdominal: soft, appropriately tender, non distended, non tympanic. BL ROSA MARIA drains with minimal output, ss Ext: warm, no edema : no penoscrotal edema. 2 notable swellings in the left groin and upper thigh that when pressed, drain into ROSA MARIA and resolve Laboratory Studies and Objective Data Temp: [98 F (36.7 C)-99.3 F (37.4 C)] 99.3 F (37.4 C) Pulse (Heart Rate): [65-79] 65 Resp Rate: [14-22] 16 BP: (121-138)/(55-81) 138/55 O2 Sat (%): [92 %-97 %] 97 % Oxygen Therapy O2 Sat (%): 97 % O2 Device: room air Flow (L/min): 2 24 hour outputs: Intake/Output Summary (Last 24 hours) at 04/11/2024 0632 Last data filed at 04/11/2024 0500 Gross per 24 hour Intake 2859.42 ml Output 3030 ml Net -170.58 ml WBC/Hgb/Hct/Plts: 3.82/10.4/29.7/166 (04/11 6) Na/K+/Phos/Mg/Ca: 137/3.9/3.7/1.7/8.3 (04/11 6) Bun/Creat/Cl/CO2/Glucose: 11/0.82/103/23/239 (04/11 6) Assessment/Plan Melodie Medrano Jr. is a 58 y.o. year old male who is 1 Day Post-Op s/p partial penectomy and 03/06/24 b/l RAIL. Now presenting via ED for L inguinal swelling and pain of 2 days. Planned procedures: Procedure(s) (LRB): Drainage Soft Tissue Percutaneous W/ Image Guidance Soft Tissue Drainage. Ultrasound-guided left groin/thigh collection drainage. (Left) Urology Recommendations: >Continue DIET REGULAR diet > Follow up Cx and rangel > ID recs appreciated for abx selection > heme recs appreciated for PE management, need for new scans > Will move follow up > Stop Hep gtt and resume xarelto in prep for DC Ppx: Holding xarelto for DVT/E. Continue SCD and hep gtt LDA: PIV, BL thigh Jps ID: - appreciate ID - vanc and zosyn 04/09- - R ROSA MARIA cx 04/09 - pseuo putida, E. Genny, susc pending - L ROSA MARIA cx 04/09 Strep veridans, pseudo putida, e genny, susc pending - follow up new Ucx and IR cx Seen with chief resident and will staff with attending urologist Kami Crowley MD Urologic Surgery, PGY-3 [id number] 04/11/2024 6:32 AM Please page the Urology consult pager with questions or concerns (Found in QGenda) [facility] --> Urology --> Consults [facility] --> Urology --> [facility] ALL URGENT ISSUES SHOULD BE PAGED TO THE ABOVE PAGER - Epic chat is not a reliable method of urgent communication with a surgical service at any time. - The person who wrote this note may be off service, post call, or otherwise unavailable. Summary: Psychosocial Assessment Psychosocial Assessment Per chart review, Melodie is a 58 y.o., male, who was admitted for swelling and erythema. SW met with Melodie to introduce self, explain social human services assistants role during inpatient stay, and answer questions. Melodie was alert and oriented x4 and agreeable to SW visit. Contact Information: Crew Leader/Control Room Operator Name: Deborah Queen Crew Leader/Control Room Operator's Social Work Contact Name: see care team Mercerizing Range Feeder's Phone Number: see care team Advance Directive Discussion: Patient does not have any advance directives on file. SW inquired whether or not patient is interested in completing health care power of user experience architect and/or living will paperwork during this visit. SW reviewed the documents, discussed the benefits of completing them, and provided education re: Legal NOK (LNOK). Patient declined interest in completing the documents at this time. Legal NOK: Melodie's Mendoza Medrano ( [phone]) is her Legal NOK. Emotional/Psychological: Mood: congruent to situation, congruent to affect Current Interpersonal Conduct/Behavior: appropriate to situation Mental Health Conditions/Symptoms: denies Previous Mental Health Treatment: none Previous Mental Health Treatment Date: Melodie denies any previous mental health treatment or conditions. Upcoming Mental Health Treatment Date(s): None reported Emotional/Psychological Comments: Melodiedenies any mood or behavioral health concerns. He denies suicidal ideation or thoughts of self-harm Distress Screen: Deferred by SW. Patient Coping/Stress Concerns: Patient Coping/Stress Concerns: No (Melodie is a direct, assertive communicator. He states he manages his stress by spending quality time with his family and friends. He enjoys hunting. 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 At the time of this assessment he is not allowed to eat or drink in preparation for his surgery.) Understanding Of Condition And Treatment: adequate understanding of medical condition, adequate understanding of treatment Living Environment: Lives With: spouse (Melodie resides with his . They have two dogs.) Living Arrangement and Set Up: house (He resides in a 2 stories, 2 FEDE.) Caregiver Coping/Stress Concerns: Caregiver Coping/Stress Concerns: No Reaction To Health Status: adjusting, realistic Employment/Financial: Employed?: Yes Employment Details: Full-time, [employer], [employer] Employment/Financial Concerns: no Source Of Income: salary/wages Food Insecurity: Within the past 12 months, you worried that your food would run out before you got the money to buy more.: Never true Within the past 12 months, the food you bought just didn't last and you didn't have money to get more.: Never true Housing Stability: In the last 12 months, was there a time when you were not able to pay the mortgage or rent on time?: No Utilities: In the past 12 months has the [employer], gas, oil, or water [employer] threatened to shut off services in your home?: No Transportation Needs: In the past 12 months, has lack of transportation kept you from medical appointments or from getting medications?: No In the past 12 months, has lack of transportation kept you from meetings, work, or from getting things needed for daily living?: No Alcohol Use: Q1: How often do you have a drink containing alcohol?: 2-3 times a week Q2: How many drinks containing alcohol do you have on a typical day when you are drinking?: 3 or 4 Q3: How often do you have six or more drinks on one occasion?: Never Substance Use: How many times in the past year have you used illegal drugs?: Never Intimate Partner Violence: Within the last year, have you been afraid of your partner or ex-partner?: No Within the last year, have you been humiliated or emotionally abused in other ways by your partner or ex-partner?: No Within the last year, have you been kicked, hit, slapped, or otherwise physically hurt by your partner or ex-partner?: No Within the last year, have you been raped or forced to have any kind of sexual activity by your partner or ex-partner?: No Community Resources: Melodie denies any community resource needs at this time. Anticipated Discharge Plan: Anticipated Discharge Plan: Home Medical Team Considerations: Melodie greatly values direct communication and check-ins about his treatment, condition and discharge planning. He is able to advocate for himself with confidence. SW Interventions/Recommendations: SW provided brief education about their role on medical team as it relates to emotional support, community resources and discharge planning to custodial facilities. Melodie reported understanding. SW assessed Melodie's mood and behavioral health history. He denies any behavioral health concerns. He denies suicidal ideation or thoughts of self-harm. SW provided brief education about advance directives. Melodie declined HCPOA and Living will documents. MICK is his , Mendoza (ph. [phone]). SW assess current housing situation. Melodie resides on a 2 story home with 2 FEDE. No DME needs reported. Distress Screener deferred. Psychosocial Assessment completed. SDH screener completed. IPV screener completed. SW provided active and empathetic listening, validation of feelings, encouragement, and emotional support. SW will continue to remain available to provide assistance and support as needed during inpatient stay. RASHID Franco, AMANDA GY3 Mercerizing Range Feeder Pager: #[phone] For SW needs after hours, evenings(4:30pm-8am) and Weekends, please call [phone] or page [phone] LUANA 30 Day Initial Assessment: Chart reviewed in IS. Patient has had an initial assessment completed within the past 30 days. Please refer to assessment completed on 03/17/24 by LUANA Cabrera. LUANA met with patient/family. Explained role and function of LUANA in multidisciplinary team. Contact number provided for questions. Previous initial assessment reviewed with patient/family for accuracy and any changes since last assessment. Patient confirms no changes in assessment. Reason for admission: Melodie Medrano Jr. is a 58 y.o. year old male who is s/p partial penectomy and 03/06/24 b/l RAIL. Now presenting via ED for L inguinal swelling and pain of 2 days. Anticipated discharge disposition: home with family support when medically stable. Patient Goals for Discharge: pain control/ IR procedure. Final plan will be determined closer to discharge, pending therapy and medical team recommendations. Patient/family verbalized understanding and agreement with the plan of care. Patient/family have no questions at this time. PCRM will continue to follow patient with multidisciplinary team for ongoing assessment of needs and for discharge planning. Medical team updated. DEON Rojas, ACM-RN Patient Care Chef Teacher Pager# [phone] Urology Consult Service Progress Note Last 24 Hours Patient was admitted to the ED overnight due to swelling and erythema in the left inguinal region. Since admission, patient has felt well, denies n/v/f/c. Patient states that since the initiation on the abx in the ER, the erythema and swelling have gone down. CTAP found collection in the left groin and thigh, as well as RLL segmental artery (patient started on ggt heparin) Physical Exam Gen: NAD HEENT: NCAT CV: Hemodynamically normal Chest: No increased work of breathing Abdominal: soft, appropriately tender, non distended, non tympanic. BL ROSA MARIA drains with minimal output. Ext: warm, no edema : no penoscrotal edema. 2 notable swellings in the left groin and upper thigh Laboratory Studies and Objective Data Temp: [97.5 F (36.4 C)-98.6 F (37 C)] 98.1 F (36.7 C) Pulse (Heart Rate): [67-80] 68 Resp Rate: [12-18] 18 BP: (107-136)/(61-84) 127/74 O2 Sat (%): [92 %-99 %] 96 % Weight: [106.1 kg (234 lb)] 106.1 kg (234 lb) Oxygen Therapy O2 Sat (%): 96 % O2 Device: room air 24 hour outputs: Intake/Output Summary (Last 24 hours) at 04/10/2024 0815 Last data filed at 04/10/2024 0550 Gross per 24 hour Intake 621.14 ml Output 470 ml Net 151.14 ml WBC/Hgb/Hct/Plts: 4.86/11.1/32.7/169 (04/10 146) Na/K+/Phos/Mg/Ca: 136/3.9/4.0/1.7/8.4 (04/10 146) Bun/Creat/Cl/CO2/Glucose: 17/1.11/102/25/222 (04/10 146) Assessment/Plan Melodie Medrano Jr. is a 58 y.o. year old male who is s/p partial penectomy and 03/06/24 b/l RAIL. Now presenting via ED for L inguinal swelling and pain of 2 days. Planned procedures: Procedure(s) (LRB): Drainage Soft Tissue Percutaneous W/ Image Guidance Soft Tissue Drainage. Ultrasound-guided left groin/thigh collection drainage. (Left) Urology Recommendations: >Continue DIET NPO with meds diet > plan for IR drainage today > ID recs appreciated for abx selection > heme recs appreciated for PE management, need for new scans > Urology will continue to follow Minda Guevara MD Urologic Surgery, PGY-1 [id number] 04/10/2024 8:15 AM Please page the Urology consult pager with questions or concerns (Found in QGenda) [facility] --> Urology --> Consults [facility] --> Urology --> [facility] ALL URGENT ISSUES SHOULD BE PAGED TO THE ABOVE PAGER - Epic chat is not a reliable method of urgent communication with a surgical service at any time. - The person who wrote this note may be off service, post call, or otherwise unavailable. documented in this encounter [facility] 04-11-2024 Reason for visit Narrative Specialty Diagnoses / Procedures Referred By Sury t Referred To Contact Diagnoses Penile cancer Izaiah Maurer MD [address] [place] [address] [facility] [address] [place] [address] Referral ID Status Reason Start Date Expiration Date Visits Re quested Visits Authorized [id number] 1 1 [facility]09-28-2024 Plan of care note* Plan of Care - Lashawn Jones RN - 04/11/2024 7:04 AM EDT Prior beginning of shift assessment remains unchanged throughout shift, if any change(s) in assessment, it will be seen/ relfected in flowsheets. Will continue with plan of care. Problem: Adult Inpatient Plan of Care Goal: Plan of Care Review Outcome: Progressing Goal: Patient-Specific Goal (Individualized) Outcome: Progressing Goal: Absence of Hospital-Acquired Illness or Injury Outcome: Progressing Goal: Optimal Comfort and Wellbeing Outcome: Progressing Goal: Readiness for Transition of Care Outcome: Progressing [facility]09-27-2024 Nurse Note* Nursing Notes - Karlene Regalado RN - 04/10/2024 8:43 PM EDT Urology team paged as patient is c/o 6/10 groin pain and does not want Tylenol. No other PRN pain medications available. RN to monitor. [facility]09-27-2024 Nurse Note* Nursing Notes - Deborah Neves RN - 04/10/2024 1:40 PM EDT 04/10/24 1339 Barriers to Discharge Barriers to Discharge Complex Disposition Explanation of Barriers The patient is scheduled for IR procedure today at 1600. Discharge Planning Expected Discharge Disposition Home Anticipated Services at Discharge Wound/drain [facility] Planning Note Patient discussed in medical rounds. Anticipate discharge to home with family support when medically stable. Anticipated Services for Discharge The patient will have support from spouse upon discharge. Lines/Tubes/Drains/Wounds/Supplies ROSA MARIA drain x 2. Awaiting IR procedure; unsure if he he have a drain placed vs aspiration. Education Needs: The patient has been managing ROSA MARIA drains at home, prior to admission, Consults/Recommendations: Infectious Disease- awaiting recommendations. Hematology- awaiting recommendations. The patient is on Xarelto at home. Medications No barriers anticipated in obtaining discharge medications. No prior authorizations anticipated. Durable Medical Equipment No new needs anticipated. The patient ambulates independently. Follow Up(s): Future Appointments Date Time Provider Department Center 04/13/2024 8:30 AM Izaiah Maurer MD [facility] Will handoff be needed at discharge to an Ambulatory PCR? Yes Referral to be sent to [facility], phone number [phone]. Status: on care team, referral sent. AVS Status: Updated and pending as of 04/10 at 1344 PCRM will continue to follow with medical team for any additional discharge planning needs. Deborah Neves, MSN, ACM-RN Patient Care Chef Teacher Pager# [phone] For evening and weekend discharge assistance please page the director medical economics PCRM at [phone]. [facility]09-27-2024 Hospital Discharge instructions* Discharge Instructions* Minda Guevara MD - 04/10/2024 12:59 PM EDT Images from the original note were not included. You will have an appointment with Dr. Maurer in 3 weeks. If you have not heard from our office for scheduling in the next 48 hours, please call. For your drain care: Continue to monitor drain output. Call clinic sooner if <30cc daily and appointment can be moved up for removal. IMPORTANT: Automated Post Discharge Call Patient Information As part of your care, we will call you at the primary number we have on file, the day after you aredischarged at 9:30 a.m. to check on you. Please expect a two-minute automated telephone call from the hospital. This call will come from [phone]. If you are unable to answer or do not receive the automated call, please call [phone] to complete this important evaluation. By answering the phone evaluation, a [facility] nurse will be notified if you have any questions or concerns and call you back. If you have an immediate medical need call your doctor s office, or if you have a medical emergencycall 911. Your Crew Leader/Control Room Operator (PCRM) has arranged your appointments for follow up based on your preference of where you would like to continue your care. If you are unable to attend appointments that have been arranged for you, it is your responsibilityto call to reschedule at least 48 hours prior to the appointment date. Your After Visit Summary (AVS) has provided you with instructions for your discharge. It is your responsibility to ask questions if you have any. Please contact your medical care team at the numbers listed if you should have any additional questions. CONTACTS: EVENING/WEEKEND CONTACT For evening and weekend hours if you have urgent problems: Please call the office to speak with the after hours nurse, if no response, please call and ask the gridcap machine operator to page the Urology resident director medical economics. EMERGENCY For an emergency, call 911 DR MAURER'S OFFICE Hours: Saturday - Saturday 8:00am - 4:30 pm ADDITIONAL CONTACTS: If you have any questions about your discharge plan Saturday-Saturday between the hours of 7:30 am- 4:00 pm, please call : Deborah Rowley [phone] ADDITIONAL RESOURCES: For more information about your cancer diagnosis, treatment, and support, many resources are available: [email or web address] - THE [employer] FOR [employer] INFORMATION: Call to request information or check hours. - [facility]: [facility]: or , or WWW.[facility] HOSPITALNext University. Additional resources in [facility] include the following: -THE [employer] CANC[employer] SOCIETY: [facility] . -THE [facility] COMMUNITY: National Resources: -[employer] CANCER SOCIETY (ACS), WWW.CANCER.ORG National toll free #: 3-753-KEM-[facility]5 [place] toll free #: 0-345-LPH-[place]. -NATIONAL COMPREHENSIVE CANCER NETWORK (NCCN) Ph: 218-760-HBAC Internet: WWW.NCCN.ORG - [facility] CAN[facility]ER [facility]STITUTE (NCI) Ph: 233-7-UZTEKU Internet: WWW.NCI.GOV. [facility] ([facility]): [phone]. Can help with medical supplies, equipment, food, medication assistance, transportation, wigs. [facility] only. [facility] On [facility] (formerly [facility], [facility]): [phone]. Database of resources in [facility] that is not specific to people with cancer diagnosis. Can help with food, shelters, utility assistance,transportation, mental health. Rx for [place]: 5-674-Ey-4-[place] or . Prescription assistance [facility] Programs [facility] offers a wide range of programs to support patients, families and caregivers during and after cancer. These include support groups, educational classes, expressive arts programs, workshops, and special events. These programs provide help with healing and recovery. For more information, or to sign up for a group or program, you can visit The [facility] website at [email or web address], email [facility] at Prot[employer] Biotechnologieselect medical [email or web address] or call one of the following: [facility] Department: [phone] The [facility] Line: [phone] or [phone] (toll free) Educational Classes and Workshops - Classes cover topics important to those who have been affected by cancer. Survivors learn about common problems related to treatment and recovery. They also receive information about how to improve their health and well-being. Classes are taught by clinical experts and include information and activities to help survivors live well, through and beyond cancer. Exercise Programs - Exercise can help with the side effects caused by cancer and cancer treatments.These side effects may include changes in flexibility, muscle tone and strength, energy, range of motion, balance, pain management and edema. Exercise programs shared in these classes can be adjustedbased on your level of fitness. Music-Based Services - Music-based services use music to help patients relax, express their feelings and cope with their illness. Board Certified Music Therapists may use a number of musical activities when working with a patient. These may include singing, listening to music, writing songs, playing instruments and looking at song lyrics. Art-Based Services - Art making can be a powerful way to process feelings related to a cancer diagnosis. It can deepen insight, provide inspiration, reduce stress and improve well-being. Services areoffered by a Board Certified Art Therapist. Mind, Body, Spirit Programs - These programs give survivors a chance to explore meditation, guided imagery, mindfulness and stress reduction skills to help cope with cancer. Nutrition Programs - Experts share information on nutrition and the connection between diet and cancer. Diets rich in plant-based foods can help lower your risk for cancer and is important for healthy survivorship. Families, Teens and Children - These programs are for children, between 5-18 years old, who have a loved one with cancer. Programs cover a variety of topics and offer a supportive and safe setting where families, teens and children can learn about cancer, talk about the challenges of a cancer diagnosis and learn coping skills. Young Adult Cancer Survivors - These programs are for young adult cancer survivors between the agesof 18-39. Programs focus on building peer connections with other young adult cancer survivors and developing healthy lifestyle practices that aid wellness and coping. Special Programs for Cancer Survivors - Special programs and events are held throughout the year for patients and their families. Conferences and activities during survivor and caregiver months are some of the programs offered to help survivors learn how to have the best health possible over the skilled nursing. Support Groups - [facility] offers many support groups for both patients and their families. The groups are led by clinical experts. The groups available are: Adult Grief Blood and Marrow Transplant Brain Tumors Breast Cancer Caregiver Support Group Gastrointestinal Cancers General Cancers Hematology Leukemia and Lymphoma Living with Advanced Cancer Lung Cancer Melanoma Oral, Head and Neck Cancer Prostate Cancer Sarcoma Thyroid Cancer Additional Support Programs You may also watch [facility] programs and events by visiting our video library at [email or web address]. December 17, 2019. The [facility] [place] and Melodie Leslie Research [employer]. This handout is for informational purposes only. Talk with your doctor or health care team if you have any questions about your care. For more health information, call the Patient and Family Resource Center at [phone] or visit [email or web address].[email or web address]/[email or web address] Genitourinary () and Urology Support Group Saturday of every month 12:00p.m.-1:00p.m. Virtual This online group is open to individuals with renal, bladder, penile, urethral, and testicular and rare urology cancers. Group is available before, during and after treatment to share and connect with others who have similar health concerns. Facilitated by licensed professionals at [facility]. A one-time registration is required. To register, scan the [place] code or visit [email or web address] Call [facility] at [phone] for more information. * Medications* Minda Guevara MD - 04/11/2024 8:23 AM EDT You will need to take two different antibiotics upon discharge. Please resume your xarleto * Discharge Instr - Activity* Minda Guevara MD - 04/10/2024 10:15 AM EDT ACTIVITY -Resume activities as tolerated. -Take rest periods during the day as needed. -Use the railing for support when going up and down stairs. * Discharge Instr - Diet* Minda Guevara MD - 04/10/2024 11:32 AM EDT Diet: Your doctor has recommended that you follow these diet instructions at home. Refer to the patient education materials you received during your hospital stay. If you would like more nutrition counseling, ask your doctor about making an appointment with an outpatient dietitian. Regular Diet as Tolerated Diet to help you maintain your health and control your weight. Choose healthy fats and oils such ascanola or olive oils, and good sources of fiber and carbohydrates. Choose lean meats or vegetables proteins. Avoid adding salt to your foods. Increase daily intake of fruits and vegetables. Diet that has limited fat and fiber may help to prevent slow emptying of the stomach. Having 5 or 6 small meals each day may also help. * Discharge Instr - Notify* Deborah Neves RN - 04/10/2024 12:59 PM EDT NOTIFY PHYSICIAN: FEVER/CHILLS/FLU - Temperature greater than 100.4 degrees F and/or chills. - Signs of cold or flu. NAUSEA & VOMITING - Persistent nausea and vomiting - Inability to keep medication down - Inability to keep fluids down SYMPTOMS OF WOUND INFECTION - Increase in pain in or around wound. - Change in the amount of drainage. - Change in the color of drainage. - Change in the odor of drainage. - Warmth in the tissues around the wound. - Red streaks on the skin near the wound. - Fever - Incision separates/opens up SYMPTOMS OF DVT ( Deep Vein Thrombus, or Blood Clot) -Any Tender, Swollen, Or Reddened Areas From Your Groin To Your Heels -Numbness Or Tingling In Groin Or Calf -The Skin On Your Leg Looks Pale Or Blue Or It Feels Cold To Touch -Numbness Or Tingling In Groin Or Calf -Any Shortness Of Breath -Chest Pain SYMPTOMS OF UTI ( Urinary Tract Infection) - Urine That Is Cloudy And/Or Has Foul Odor - Urge To Urinate More Often - Burning Sensation - Fever - Incontinence - Blood In Urine UNRELIEVED PAIN - Increased or unrelieved pain * Discharge Instr - Wound Care* Deborah Neves RN - 04/10/2024 12:59 PM EDT Images from the original note were not included. ROSA MARIA Drain: Apply Dry Dressing Daily: Wash your hands well with soap and water before and after doing your dressing change. Follow your instructions and change the dressing around your tube each day or as needed to keep it dry. ROSA MARIA Drain Care: Empty, measure and record the amount of drainage twice daily, or more often, if needed. Call if drainage becomes foul-smelling. If you have two drains, chela drainage amounts for drain A and drain B. Change drainage tube dressing each day and anytime it is wet. Clean around the tube exit site as instructed, and apply a clean dressing. Gently squeeze drain tubing(s) starting near where it enters your skin and moving down the length of the tubing toward the drain collection device twice daily to keep clots loosened. Call if leakage of fluid persists from drainage tube exit site(s), and if you are not able to clearthe clots down tube. Call if drain will not hold suction. Wear an old belt into the shower and pin your drain container to it. Follow these steps to empty the ROSA MARIA drain: Wash your hands with soap and water. Dry your hands and put on clean gloves. Place a waterproof pad or towel under the ROSA MARIA drain to soak up any spills. Place the bulb lower thanthe wound to prevent fluid from going back into your body. Check the bulb for any holes or cracks. Remove the plug at one side of the bulb and pour the fluid into a measuring container. Do not touch the tip of the spout with the mouth of the collection cup or anything else. This keepsgerms from getting inside the bulb and tubing. Clean the plug with a cotton ball dipped in alcohol,or an alcohol swab. Squeeze the bulb tightly while the plug is still off. Do not squeeze the bulb if the plug is in place. While the bulb is being squeezed, put the plug back to seal the bulb. If you cannot squeeze it and plug it at the same time, ask someone for help. You may also place the bulb on a hard surface, such as a table. Use your elbow or hand to press down hard on the bulb, and then stick the plug in it. Measure the amount of fluid that came out of the ROSA MARIA drain bulb. Write down the amount, color, and odor of the fluid, and the date and time that you collected it. Use a piece of paper, a notebook, or ROSA MARIA drainage chart to keep track of this information. Flush the fluid down the toilet. Throw all used supplies in the trash bag along with your gloves. Wash your hands after you are finished Please record your drain output below and take to your follow-up appointments. Date Drain # Drain# Comments AM PM AM PM ml Color: ml Color: ml Color: ml Color: ml Color: ml Color: ml Color: ml Color: ml Color: ml Color: ml Color: ml Color: ml Color: ml Color: ml Color: ml Color: ml Color: ml Color: ml Color: ml Color: ml Color: ml Color: ml Color: ml Color: ml Color: ml Color: ml Color: ml Color: ml Color: ml Color: ml Color: ml Color: ml Color: ml Color: ml Color: ml Color: ml Color: ml Color: ml Color: ml Color: ml Color: ml Color: ml Color: ml Color: ml Color: ml Color: ml Color: ml Color: ml Color: ml Color: ml Color: ml Color: ml Color: ml Color: ml Color: ml Color: ml Color: ml Color: ml Color: ml Color: Please record your drain output below and take to your follow-up appointments. Date Drain # Drain# Comments AM PM AM PM ml Color: ml Color: ml Color: ml Color: ml Color: ml Color: ml Color: ml Color: ml Color: ml Color: ml Color: ml Color: ml Color: ml Color: ml Color: ml Color: ml Color: ml Color: ml Color: ml Color: ml Color: ml Color: ml Color: ml Color: ml Color: ml Color: ml Color: ml Color: ml Color: ml Color: ml Color: ml Color: ml Color: ml Color: ml Color: ml Color: ml Color: ml Color: ml Color: ml Color: ml Color: ml Color: ml Color: ml Color: ml Color: ml Color: ml Color: ml Color: ml Color: ml Color: ml Color: ml Color: ml Color: ml Color: ml Color: ml Color: ml Color: ml Color: ml Color: ml Color: Please record your drain output below and take to your follow-up appointments. Date Drain # Drain# Comments AM PM AM PM ml Color: ml Color: ml Color: ml Color: ml Color: ml Color: ml Color: ml Color: ml Color: ml Color: ml Color: ml Color: ml Color: ml Color: ml Color: ml Color: ml Color: ml Color: ml Color: ml Color: ml Color: ml Color: ml Color: ml Color: ml Color: ml Color: ml Color: ml Color: ml Color: ml Color: ml Color: ml Color: ml Color: ml Color: ml Color: ml Color: ml Color: ml Color: ml Color: ml Color: ml Color: ml Color: ml Color: ml Color: ml Color: ml Color: ml Color: ml Color: ml Color: ml Color: ml Color: ml Color: ml Color: ml Color: ml Color: ml Color: ml Color: ml Color: ml Color: ml Color: Please record your drain output below and take to your follow-up appointments. Date Drain # Drain# Comments AM PM AM PM ml Color: ml Color: ml Color: ml Color: ml Color: ml Color: ml Color: ml Color: ml Color: ml Color: ml Color: ml Color: ml Color: ml Color: ml Color: ml Color: ml Color: ml Color: ml Color: ml Color: ml Color: ml Color: ml Color: ml Color: ml Color: ml Color: ml Color: ml Color: ml Color: ml Color: ml Color: ml Color: ml Color: ml Color: ml Color: ml Color: ml Color: ml Color: ml Color: ml Color: ml Color: ml Color: ml Color: ml Color: ml Color: ml Color: ml Color: ml Color: ml Color: ml Color: ml Color: ml Color: ml Color: ml Color: ml Color: ml Color: ml Color: ml Color: ml Color: ml Color: * Attachments The following attachments cannot be sent through Care Everywhere. * Wound Drain Care ([facility]) ([place]) [facility] Consult note* Wilmar Woods MD - 04/10/2024 12:52 PM EDTAssociated Order(s): IP CONSULT TO HEMATOLOGY HEMATOLOGY CONSULT INITIAL EVALUATION IDENTIFICATION PATIENT: Melodie Medrano Jr. ADMIT DATE: 04/09/2024 TIME OF EVALUATION: 04/10/2024 4:51 PM HOSPITAL STAY: LOS: 1 day CONSULTING SERVICE: Urology REASON FOR CONSULTATION: Pulmonary Embolism ASSESSMENT AND RECOMMENDATIONS Melodie Medrano Jr. is a 58 y.o. male with a PMH of DM, HTN, HLD, DVT/PE on Xarelto and melanoma s/p BL RIFLND on 03/06/24 who presented with groin and thigh pain. Hematology was consulted for a new PE. Active Problems: Acute incidental subsegmental PE HTN H/O DVT/PE Bilateral inguinal collections UTI/cystitis This is a patient with a history of DVT/PE that has been well controlled on Xarelto as an outpatient. He has a new PE that was asymptomatic and incidentally found on CT A/P. This is likely due to missing a couple of doses of Xarelto around the time of his recent hospitalization in combination with recent surgery. From a hematology perspective the patient can continue his Xarelto as prescribed andno medication change is needed. RECOMMENDATIONS: Continue home Xarelto as prescribed No need for CT PE from a hematology perspective No further lab workup needed from a hematology perspective This consult was discussed with Dr. Melvin, the attending physician. The recommendations will be finalized after being attested by the attending physician. If you have any questions or need any further information, please feel free to contact the Hematology Consult Service. We will sign off at this time. Thank you for allowing us to participate in the care of Melodie Medrano Jr.. Wilmar Woods MD PGY-5, Fellow Hematology/Medical Oncology HISTORY OF PRESENT ILLNESS Melodie Medrano Jr. is a 58 y.o. male with a PMH of DM, HTN, HLD, DVT/PE on Xarelto and melanoma s/p BL RIFLND on 03/06/24 who presented with groin and thigh pain. Hematology was consulted for a new PE. The patient was previously admitted with right groin swelling and pain with RLE U/S showing a fluid collection to the right groin for which IR placed a drain and the patient was discharged home with the IR drain and 2 Unable to see patient due to procedural intervention. Discussed with the patient's at bedside and she said that he has bad clots before when either due to traveling or after surgery. He has otherwise been well controlled on Xarelto. Per the patient's he has not had any symptoms including CP or SOB (she did specifically ask him about those). He has been taking his Xarelto at home but didmiss a couple of doses when in the hospital recently. PAST MEDICAL, SURGICAL, FAMILY, and SOCIAL HISTORY Past Medical History: Diagnosis Date Diabetes mellitus Essential hypertension, benign Hyperlipidemia Melanoma left rib cage Penile ca Pulmonary embolism Past Surgical History: Procedure Laterality Date DRAINAGE SOFT TISSUE PERCUTANEOUS W/ IMAGE GUIDANCE N/A 03/20/2024 Laterality: N/A; Surgeon: Kisha Quarles DO; Location: [facility] INTERVENTIONAL RADIOLOGY (VIR) LYMPHADENECTOMY INGUINOFEMORAL ROBOTIC Bilateral 03/05/2024 Laterality: Bilateral; Surgeon: Izaiah Maurer MD; [facility] AMPUTATION PENIS PARTIAL N/A 01/22/2024 Laterality: N/A; Surgeon: Izaiah Maurer MD; [facility] PERIOP ACL RECONSTRUCTION BACK SURGERY FOOT SURGERY Bilateral reconstructive OTHER SURGICAL Right undescended testicle VASECTOMY Family History Problem Relation Age of Onset Aneurysm Father Cancer- Other Father melanoma Lung Cancer Maternal Grandmother Social History Socioeconomic History Marital status: Tobacco Use Smoking status: Former Types: Cigarettes Smokeless tobacco: Former Types: Chew Substance and Sexual Activity Alcohol use: Yes Alcohol/week: 4.0 standard drinks of alcohol Types: 4 Shots of liquor per week Drug use: Never Social Determinants of Health Food Insecurity: No Food Insecurity (04/10/2024) Hunger Vital Sign Worried About Running Out of Food in the Last Year: Never true Ran Out of Food in the Last Year: Never true Transportation Needs: No Transportation Needs (04/10/2024) PRAPARE - Transportation Lack of Transportation (Medical): No Lack of Transportation (Non-Medical): No Intimate Partner Violence: Not At Risk (04/10/2024) Humiliation, Afraid, Rape, and Kick questionnaire Fear of Current or Ex-Partner: No Emotionally Abused: No Physically Abused: No Sexually Abused: No Housing Stability: Low Risk (04/10/2024) Housing Stability Vital Sign Unable to Pay for Housing in the Last Year: No Number of Times Moved in the Last Year: 0 Homeless in the Last Year: No MEDICATIONS SCHEDULED: famotidine (PF) (PEPCID) injection 20 mg, 20 mg, Q12H Or faMOTIdine (PEPCID) tablet 20 mg, 20 mg, Q12H Flumazenil (ROMAZICON) injection 0.2 mg, 0.2 mg, See admin instructions Naloxone (NARCAN) injection 0.1 mg, 0.1 mg, See admin instructions Or Naloxone (NARCAN) injection 0.4 mg, 0.4 mg, See admin instructions Piperacillin-tazobactam (ZOSYN) 4.5 g in dextrose premix IVPB, 4.5 g, Q8HNS Polyethylene glycol (MIRALAX) packet 17 g, 17 g, Daily Vancomycin HCl in NaCl (Vancocin) 1,500 mg 290 ml premade IVPB, 15 mg/kg (Adjusted), Q12HNS FLUIDS/DRIPS: heparin 16 Units/kg/hr (04/10/24 1216) Lactated ringers 100 mL/hr at 04/10/24 1159 PRNs: Acetaminophen, 650 mg, Q4H PRN alum/mag hydrox.-simethicone, 30 mL, Q6H PRN fentaNYL, 0-300 mcg, As directed PRN Midazolam HCl (PF), 0-10 mg, As directed PRN ondansetron, 4 mg, Q6H PRN Or Ondansetron, 4 mg, Q6H PRN ondansetron, 4 mg, Once PRN Sodium chloride 0.9%, 250 mL, PRN ALLERGIES: He has No Known Allergies. REVIEW OF SYSTEMS Unable to see patient due to procedure OBJECTIVE DATA Temp: [97.8 F (36.6 C)-98.6 F (37 C)] 98.6 F (37 C) Pulse (Heart Rate): [65-77] 72 Resp Rate: [12-22] 18 BP: (117-136)/(61-84) 121/76 O2 Sat (%): [92 %-98 %] 92 % Weight: [106.1 kg (234 lb)] 106.1 kg (234 lb) I/O last 3 completed shifts: In: 1888.4 [I.V.:1298.4; IV Piggyback:590] Out: 1375 [Urine:1275; Other:100] Oxygen Therapy: Oxygen Therapy O2 Sat (%): 92 % O2 Device: room air Flow (L/min): 2 Oxygen Delivery/Consumption Hemodynamics BSA (Calculated - sq m): 2.39 m2 Unable to see patient due to procedure Body mass index is 27.75 kg/m . LABS AND IMAGING CBC CBC Lab Results Component Value Date WBC 4.86 04/10/2024 HGB 11.1 (L) 04/10/2024 HCT 32.7 (L) 04/10/2024 PLATELET 169 04/10/2024 MCV 87.2 04/10/2024 EDIF Lab Results Component Value Date RBCDISTRIBU 14.0 04/10/2024 GRNLOCYT 72.2 04/09/2024 LYMPHOCYT 17.1 04/09/2024 MONOCYTELEC 8.3 04/09/2024 EOSINOPHILS 1.7 04/09/2024 BASOPHILS 0.3 04/09/2024 LYMPHOCYTABS 1.57 04/09/2024 EOSINOPHLABS 0.16 04/09/2024 PLATELET 169 04/10/2024 MPV 9.0 04/10/2024 Last 3 Hemoglobin Lab Results Component Value Date HGB 11.1 (L) 04/10/2024 HGB 10.7 (L) 04/09/2024 HGB 13.3 (L) 04/09/2024 Last 3 WBC/ANC Lab Results Component Value Date WBC 4.86 04/10/2024 WBC 6.08 04/09/2024 WBC 9.18 04/09/2024 No results found for: GRNLOCTYABS Last 3 Platelets Lab Results Component Value Date PLATELET 169 04/10/2024 PLATELET 156 04/09/2024 PLATELET 212 04/09/2024 Chemistry Bun/Creat/Cl/CO2/Glucose: 17/1.11/102/25/222 (04/10 014) Na/K+/Phos/Mg/Ca: 136/3.9/4.0/1.7/8.4 (04/10 014) No results found for: LDH Coagulation Studies Lab Results Component Value Date PT 27.2 (H) 04/09/2024 PTT 62.0 (H) 04/10/2024 INR 2.5 (H) 04/09/2024 Liver Function Studies No results found for: ALT, TRANSFERASEA, AST, GGT, GAMMAGT, ALKPHOS, BILITOTAL, BILIDIRECT, ALBUMIN Imaging DRAINAGE SOFT TISSUE PERCUTANEOUS W/ IMAGE GUIDANCE CT A/P 04/09/24: IMPRESSION: 1. Incidental new pulmonary embolus in a right lower lobe segmental artery. 2. Persistent bilateral inguinal collections, significantly increased in size on the left. These collections now demonstrate a thick peripheral wall which may reflect superimposed infection given the clinical context. Right inguinal drain in place. A drain in the left thyroid does not significantly traverse the left inguinal collection. [facility] Work Phone: [phone] Consult note* Wilmar Woods MD - 04/10/2024 12:52 PM EDTAssociated Order(s): IP CONSULT TO HEMATOLOGY HEMATOLOGY CONSULT INITIAL EVALUATION IDENTIFICATION PATIENT: Melodie Medrano Jr. ADMIT DATE: 04/09/2024 TIME OF EVALUATION: 04/10/2024 4:51 PM HOSPITAL STAY: LOS: 1 day CONSULTING SERVICE: Urology REASON FOR CONSULTATION: Pulmonary Embolism ASSESSMENT AND RECOMMENDATIONS Melodie Medrano Jr. is a 58 y.o. male with a PMH of DM, HTN, HLD, DVT/PE on Xarelto and melanoma s/p BL RIFLND on 03/06/24 who presented with groin and thigh pain. Hematology was consulted for a new PE. Active Problems: Acute incidental subsegmental PE HTN H/O DVT/PE Bilateral inguinal collections UTI/cystitis This is a patient with a history of DVT/PE that has been well controlled on Xarelto as an outpatient. He has a new PE that was asymptomatic and incidentally found on CT A/P. This is likely due to missing a couple of doses of Xarelto around the time of his recent hospitalization in combination with recent surgery. From a hematology perspective the patient can continue his Xarelto as prescribed andno medication change is needed. RECOMMENDATIONS: Continue home Xarelto as prescribed No need for CT PE from a hematology perspective No further lab workup needed from a hematology perspective This consult was discussed with Dr. Melvin, the attending physician. The recommendations will be finalized after being attested by the attending physician. If you have any questions or need any further information, please feel free to contact the Hematology Consult Service. We will sign off at this time. Thank you for allowing us to participate in the care of Melodie Cullenimes . Wilmar Woods MD PGY-5, Fellow Hematology/Medical Oncology HISTORY OF PRESENT ILLNESS Melodie Medrano Jr. is a 58 y.o. male with a PMH of DM, HTN, HLD, DVT/PE on Xarelto and melanoma s/p BL RIFLND on 03/06/24 who presented with groin and thigh pain. Hematology was consulted for a new PE. The patient was previously admitted with right groin swelling and pain with RLE U/S showing a fluid collection to the right groin for which IR placed a drain and the patient was discharged home with the IR drain and 2 Unable to see patient due to procedural intervention. Discussed with the patient's at bedside and she said that he has bad clots before when either due to traveling or after surgery. He has otherwise been well controlled on Xarelto. Per the patient's he has not had any symptoms including CP or SOB (she did specifically ask him about those). He has been taking his Xarelto at home but didmiss a couple of doses when in the hospital recently. PAST MEDICAL, SURGICAL, FAMILY, and SOCIAL HISTORY Past Medical History: Diagnosis Date Diabetes mellitus Essential hypertension, benign Hyperlipidemia Melanoma left rib cage Penile ca Pulmonary embolism Past Surgical History: Procedure Laterality Date DRAINAGE SOFT TISSUE PERCUTANEOUS W/ IMAGE GUIDANCE N/A 03/20/2024 Laterality: N/A; Surgeon: Kisha Quarles DO; Location: [facility] INTERVENTIONAL RADIOLOGY (VIR) LYMPHADENECTOMY INGUINOFEMORAL ROBOTIC Bilateral 03/05/2024 Laterality: Bilateral; Surgeon: Izaiah Maurer MD; [facility] MA[facility] OR AMPUTATION PENIS PARTIAL N/A 01/22/2024 Laterality: N/A; Surgeon: Izaiah Maurer MD; [facility] PERIOP ACL RECONSTRUCTION BACK SURGERY FOOT SURGERY Bilateral reconstructive OTHER SURGICAL Right undescended testicle VASECTOMY Family History Problem Relation Age of Onset Aneurysm Father Cancer- Other Father melanoma Lung Cancer Maternal Grandmother Social History Socioeconomic History Marital status: Tobacco Use Smoking status: Former Types: Cigarettes Smokeless tobacco: Former Types: Chew Substance and Sexual Activity Alcohol use: Yes Alcohol/week: 4.0 standard drinks of alcohol Types: 4 Shots of liquor per week Drug use: Never Social Determinants of Health Food Insecurity: No Food Insecurity (04/10/2024) Hunger Vital Sign Worried About Running Out of Food in the Last Year: Never true Ran Out of Food in the Last Year: Never true Transportation Needs: No Transportation Needs (04/10/2024) PRAPARE - Transportation Lack of Transportation (Medical): No Lack of Transportation (Non-Medical): No Intimate Partner Violence: Not At Risk (04/10/2024) Humiliation, Afraid, Rape, and Kick questionnaire Fear of Current or Ex-Partner: No Emotionally Abused: No Physically Abused: No Sexually Abused: No Housing Stability: Low Risk (04/10/2024) Housing Stability Vital Sign Unable to Pay for Housing in the Last Year: No Number of Times Moved in the Last Year: 0 Homeless in the Last Year: No MEDICATIONS SCHEDULED: famotidine (PF) (PEPCID) injection 20 mg, 20 mg, Q12H Or faMOTIdine (PEPCID) tablet 20 mg, 20 mg, Q12H Flumazenil (ROMAZICON) injection 0.2 mg, 0.2 mg, See admin instructions Naloxone (NARCAN) injection 0.1 mg, 0.1 mg, See admin instructions Or Naloxone (NARCAN) injection 0.4 mg, 0.4 mg, See admin instructions Piperacillin-tazobactam (ZOSYN) 4.5 g in dextrose premix IVPB, 4.5 g, Q8HNS Polyethylene glycol (MIRALAX) packet 17 g, 17 g, Daily Vancomycin HCl in NaCl (Vancocin) 1,500 mg 290 ml premade IVPB, 15 mg/kg (Adjusted), Q12HNS FLUIDS/DRIPS: heparin 16 Units/kg/hr (04/10/24 1216) Lactated ringers 100 mL/hr at 04/10/24 1159 PRNs: Acetaminophen, 650 mg, Q4H PRN alum/mag hydrox.-simethicone, 30 mL, Q6H PRN fentaNYL, 0-300 mcg, As directed PRN Midazolam HCl (PF), 0-10 mg, As directed PRN ondansetron, 4 mg, Q6H PRN Or Ondansetron, 4 mg, Q6H PRN ondansetron, 4 mg, Once PRN Sodium chloride 0.9%, 250 mL, PRN ALLERGIES: He has No Known Allergies. REVIEW OF SYSTEMS Unable to see patient due to procedure OBJECTIVE DATA Temp: [97.8 F (36.6 C)-98.6 F (37 C)] 98.6 F (37 C) Pulse (Heart Rate): [65-77] 72 Resp Rate: [12-22] 18 BP: (117-136)/(61-84) 121/76 O2 Sat (%): [92 %-98 %] 92 % Weight: [106.1 kg (234 lb)] 106.1 kg (234 lb) I/O last 3 completed shifts: In: 1888.4 [I.V.:1298.4; IV Piggyback:590] Out: 1375 [Urine:1275; Other:100] Oxygen Therapy: Oxygen Therapy O2 Sat (%): 92 % O2 Device: room air Flow (L/min): 2 Oxygen Delivery/Consumption Hemodynamics BSA (Calculated - sq m): 2.39 m2 Unable to see patient due to procedure Body mass index is 27.75 kg/m . LABS AND IMAGING CBC CBC Lab Results Component Value Date WBC 4.86 04/10/2024 HGB 11.1 (L) 04/10/2024 HCT 32.7 (L) 04/10/2024 PLATELET 169 04/10/2024 MCV 87.2 04/10/2024 EDIF Lab Results Component Value Date RBCDISTRIBU 14.0 04/10/2024 GRNLOCYT 72.2 04/09/2024 LYMPHOCYT 17.1 04/09/2024 MONOCYTELEC 8.3 04/09/2024 EOSINOPHILS 1.7 04/09/2024 BASOPHILS 0.3 04/09/2024 LYMPHOCYTABS 1.57 04/09/2024 EOSINOPHLABS 0.16 04/09/2024 PLATELET 169 04/10/2024 MPV 9.0 04/10/2024 Last 3 Hemoglobin Lab Results Component Value Date HGB 11.1 (L) 04/10/2024 HGB 10.7 (L) 04/09/2024 HGB 13.3 (L) 04/09/2024 Last 3 WBC/ANC Lab Results Component Value Date WBC 4.86 04/10/2024 WBC 6.08 04/09/2024 WBC 9.18 04/09/2024 No results found for: GRNLOCTYABS Last 3 Platelets Lab Results Component Value Date PLATELET 169 04/10/2024 PLATELET 156 04/09/2024 PLATELET 212 04/09/2024 Chemistry Bun/Creat/Cl/CO2/Glucose: 17/1.11/102/25/222 (04/10 146) Na/K+/Phos/Mg/Ca: 136/3.9/4.0/1.7/8.4 (04/10 014) No results found for: LDH Coagulation Studies Lab Results Component Value Date PT 27.2 (H) 04/09/2024 PTT 62.0 (H) 04/10/2024 INR 2.5 (H) 04/09/2024 Liver Function Studies No results found for: ALT, TRANSFERASEA, AST, GGT, GAMMAGT, ALKPHOS, BILITOTAL, BILIDIRECT, ALBUMIN Imaging DRAINAGE SOFT TISSUE PERCUTANEOUS W/ IMAGE GUIDANCE CT A/P 04/09/24: IMPRESSION: 1. Incidental new pulmonary embolus in a right lower lobe segmental artery. 2. Persistent bilateral inguinal collections, significantly increased in size on the left. These collections now demonstrate a thick peripheral wall which may reflect superimposed infection given the clinical context. Right inguinal drain in place. A drain in the left thyroid does not significantly traverse the left inguinal collection. * Rebekah Boyd RN - 04/10/2024 1:48 AM EDT Vascular Access Procedure Note for Ultrasound Guided PIV Placement Assessment Melodie Medrano Jr. seen and evaluated for peripheral IV insertion using ultrasound guidance. ID band present, allergies verified and patient/nurse questioned of limb precautions. Skin integrity assessed, no evidence of condition that would prevent safe insertion of a peripheral IV with ultrasound. Allergies: No Known Allergies Insertion Ultrasound guided PIV: Peripheral IV placed per aseptic technique under ultrasound guidance on 1sr attempt(s). [x]Obtained labs. Peripheral IV Line - Single Lumen 04/10/24146 forearm, anterior, right 20 gauge;1 1/4 in length (Active) 04/10/24146 Present On Admission : no Guiding Device: ultrasound Lumen 1: Additional Lumens: Lumen 2: Location: forearm, anterior, right Device/Lot Number: [id number] catheter system Gauge/Length: 20 gauge;1 1/4 in length Unsuccessful Insertion Attempts: Unsuccessful Attempt Location/Site: Pain Prevention/Patient Tolerance: distraction;tolerated well Removal: Additional Comments: placed by Rama Lora RN Lumen 3: Peripheral IV Present on Admission: (Retired/Read Only) Location: (Retired/Read Only) Device: (Retired/Read Only) Gauge/Length: System Specialist/Lot Number: Unsuccessful Insertion Attempts: (Retired/Read Only) Unsuccessful Attempt Locations: Pain Prevention: Patient Tolerance: Insertion: Removal Indication: Peripheral IV Location - Orientation: Peripheral IV Location: Insertion Site WDL WDL 04/10/24146 Site Preparation/Maintenance site cleansed: chlorhexidine solution;dressing: dry and intact 04/10/24146 Securement catheter stabilization device, secured with;site guard in place 04/10/24146 Date Dressing Changed 04/10/24 04/10/24146 Lumen 1 Patency/Maintenance flushed without difficulty;blood return, able to obtain 04/10/24146 Date Lumen 1 Cap/Connector Changed/Applied 04/10/24 04/10/24146 Phlebitis 0-->no symptoms 09/27/24 0147 Infiltration 0-->no symptoms 04/10/24 014 Positive blood return noted, flushes easily, no edema, or leakage noted. Stabilization device used to secure IV, occlusive dressing applied. Denies pain at site. Patient tolerated procedure well. Site dated and initialed. Bedside RN notified of procedure completion Education Patient/Family informed to notify nurse of any complications including pain, redness, swelling, or leakage post insertion. Pt safety room check completed prior to exiting room. [x]Call light. [x]Bed locked. [x]Bed low. [x]Tray table within reach. Thank you for allowing our team to participate in the care of this patient. Vascular Access Team [id number] [facility]* Medical Student - Ludwin Baltazarnd - 04/10/2024 12:10 PM EDT INFECTIOUS DISEASE ID Team 1 CONSULT NOTE Referring MD: Izaiah Maurer MD Reason for Consult: bilateral lymphadenectomy, swelling and erythema on L side. On vanc/zosyn. Chief Complaint: bilateral groin swelling, fever, chills HPI: Melodie Medrano Jr. is a 58 y.o. male with a PMH of DM2, HTN, HLD, melanoma, penile cancer s/p resection including inguinofemoral lymphoidectomy, and pulmonary edema.. He presented on 04/09/2024to the [facility] ED after a 4 day history of L valerie swelling and home fever of 102F. He was told to come to the ED by his urologist who was going to see him yesterday for routine follow up appointment. Previously admitted on 03/20 for right inguinal swelling, was placed on vanc and zosyn, cultures from ROSA MARIA drain showed staphylococcus epi growth. Blood cultures showed no growth. Was discharged home on bactrim, which was finished last , 04/02/24. He reports resolution of his symptoms since being discharged from the hospital last on 03/20/24, but on Saturday he started having pain and swelling in hisleft groin and thigh and states it feels similar to previously when he had an infection of his right groin. Patient states that he has had about 5 infections ever since his lymphadenectomy and penileresection in January and feels like the infection has never really gone away. He also states that he has been having some urinary hesitancy and burning in the past two weeks. He states since Saturday he has had some fever, erythema, and swelling on his left groin and thigh, but it is improving since yesterday. He states that his ROSA MARIA drains have been draining straw colored cloudy fluid. Says that abut 400 ml of fluid was drained off today. He states he has no joint or back pain. Antibiotics Received: Since 02/04: clindamycin, ancef, keflex,zosyn, bactrim, vanc. On current admission he has received: zosyn, vanc Exposures and Risk Factors Sick Contacts: n/a Occupation: n/a Travel: n/a Animal Contact or Insect Bites: None TB risk factors: n/a Occupational or Environmental Exposures: n/a Implants/hardware: 2 ROSA MARIA drains Drug use: None Sexual Activity: n/a Other: n/a Review of Systems - Patient denies the following Weight Loss (Unwanted), Dyspnea, Nausea, Vomiting, Diarrhea, and Back Pain, however admits to Fever, Chills, Fatigue, Urinary Hesitancy, Dysuria, Hip Pain, Swelling , andErythema Past Medical History: Diagnosis Date Diabetes mellitus Essential hypertension, benign Hyperlipidemia Melanoma left rib cage Penile ca Pulmonary embolism Past Surgical History: Procedure Laterality Date DRAINAGE SOFT TISSUE PERCUTANEOUS W/ IMAGE GUIDANCE N/A 03/20/2024 Laterality: N/A; Surgeon: Kisha Quarles DO; Location: [facility] INTERVENTIONAL RADIOLOGY (VIR) LYMPHADENECTOMY INGUINOFEMORAL ROBOTIC Bilateral 03/05/2024 Laterality: Bilateral; Surgeon: Izaiah Maurer MD; Location: [facility] MAIN OR AMPUTATION PENIS PARTIAL N/A 01/22/2024 Laterality: N/A; Surgeon: Izaiah Maurer MD; Location: [facility] OSC PERIOP ACL RECONSTRUCTION BACK SURGERY FOOT SURGERY Bilateral reconstructive OTHER SURGICAL Right undescended testicle VASECTOMY Social History Socioeconomic History Marital status: Tobacco Use Smoking status: Former Types: Cigarettes Smokeless tobacco: Former Types: Chew Substance and Sexual Activity Alcohol use: Yes Alcohol/week: 4.0 standard drinks of alcohol Types: 4 Shots of liquor per week Drug use: Never Social Determinants of Health Food Insecurity: No Food Insecurity (03/17/2024) Hunger Vital Sign Worried About Running Out of Food in the Last Year: Never true Ran Out of Food in the Last Year: Never true Transportation Needs: No Transportation Needs (03/17/2024) PRAPARE - Transportation Lack of Transportation (Medical): No Lack of Transportation (Non-Medical): No Intimate Partner Violence: Not At Risk (03/17/2024) Humiliation, Afraid, Rape, and Kick questionnaire Fear of Current or Ex-Partner: No Emotionally Abused: No Physically Abused: No Sexually Abused: No Housing Stability: Unknown (03/17/2024) Housing Stability Vital Sign Unable to Pay for Housing in the Last Year: No Homeless in the Last Year: No Family History Problem Relation Age of Onset Aneurysm Father Cancer- Other Father melanoma Lung Cancer Maternal Grandmother Medications Prior to Admission Medication Sig Dispense Refill Last Dose amLODIPine 5 MG tablet Take 1-2 tablets by mouth daily. 04/09/2024 Cholecalciferol (Vitamin D) 25 MCG (1000 UT) tablet Take 1 tablet by mouth daily. 04/09/2024 cyanocobalamin 100 MCG tablet Take 1 tablet by mouth daily. 04/09/2024 lisinopril 30 MG tablet Take 1 tablet by mouth daily. 04/08/2024 metFORMIN-XR 500 MG Tab SR 24 HR Take 1 tablet by mouth 2 times daily. 04/09/2024 Metoprolol succinate 50 MG tablet XL Take 1 tablet by mouth daily. 04/09/2024 omega-3 acid ethyl esters 1 g capsule Take 2 capsules by mouth 2 times daily. 04/09/2024 Rosuvastatin 10 MG tablet Take 1 tablet by mouth daily. 04/09/2024 Sulfamethoxazole-trimethoprim 800-160 MG per tablet Take 1 tablet by mouth 2 times daily for 14 days. 28 tablet 0 04/08/2024 Tamsulosin HCl 0.4 MG capsule Take 1 capsule by mouth daily 30 capsule 11 04/09/2024 Turmeric (QC TUMERIC COMPLEX PO) Take by mouth. 04/09/2024 Xarelto 20 MG tablet Take 1 tablet by mouth daily with dinner. You may resume taking this medication as previously prescribed after discharge. For refills contact Dr. Juarez. 30 tablet 2 04/09/2024 Elastic Bandages & Supports (Medical Compression Stockings) Misc 1 Each by Unknown route daily.31 Each 3 Unknown [DISCONTINUED] Acetaminophen 325 MG tablet Take 2 tablets by mouth every 6 hours for 7 days. 56 tablet 0 [DISCONTINUED] Cyclobenzaprine 5 MG tablet Take 1 tablet by mouth 3 times daily as needed for Muscle spasms or Moderate Pain for up to 7 days. 15 tablet 0 [DISCONTINUED] Gabapentin 100 MG capsule Take 1 capsule by mouth 3 times daily for 7 days. 21 capsule 0 [DISCONTINUED] oxyCODONE 5 MG tablet Take 1 tablet by mouth every 6 hours as needed for Moderate Pain or Severe Pain for up to 7 days. 10 tablet 0 [DISCONTINUED] Polyethylene Glycol 3350 (PEG 3350) 17 GM/SCOOP Powder Take 17 g by mouth daily. 238g 0 Inpatient Medications: famotidine (PF) 20 mg Intravenous Q12H Or faMOTIdine 20 mg Oral Q12H piperacillin-tazobactam 4.5 g Intravenous Q8HNS Polyethylene glycol 17 g Oral Daily vancomycin 15 mg/kg (Adjusted) Intravenous Q12HNS No Known Allergies OBJECTIVE FINDINGS: Vital Signs (24hrs): Temp: [97.5 F (36.4 C)-98.6 F (37 C)] 98.6 F (37 C) Pulse (Heart Rate): [65-77] 65 Resp Rate: [12-18] 16 BP: (117-136)/(61-84) 133/78 O2 Sat (%): [95 %-98 %] 95 % Weight: [106.1 kg (234 lb)] 106.1 kg (234 lb) Physical Exam: GEN: Awake, resting comfortably, NAD HENT: MMM. No oral lesions. Fair dentition. NECK: Supple, no cervical lymphadenopathy or meningismus. CARDIO: RRR, no murmur. PULM/CHEST: CTAB. No increased work of breathing ABD: Normal bowel sounds, soft, not tender or distended. No hepatosplenomegaly. MSK: No swelling, increased warmth, or erythema of major joints. No pedal edema. Two collections offluctuance on left inguinal and upper anterior thigh. No erythema or warmth. SKIN: No rashes. Hands and fingers appear normal. NEURO: AOx3. CN II-XII grossly intact. No focal deficits. Lab Results Component Value Date WBC 4.86 04/10/2024 HGB 11.1 (L) 04/10/2024 HCT 32.7 (L) 04/10/2024 PLATELET 169 04/10/2024 MCV 87.2 04/10/2024 Lab Results Component Value Date RBCDISTRIBU 14.0 04/10/2024 GRNLOCYT 72.2 04/09/2024 LYMPHOCYT 17.1 04/09/2024 MONOCYTELEC 8.3 04/09/2024 EOSINOPHILS 1.7 04/09/2024 BASOPHILS 0.3 04/09/2024 LYMPHOCYTABS 1.57 04/09/2024 EOSINOPHLABS 0.16 04/09/2024 PLATELET 169 04/10/2024 MPV 9.0 04/10/2024 Bun/Creat/Cl/CO2/Glucose: 17/1.11/102/25/222 (04/10 146) Na/K+/Phos/Mg/Ca: 136/3.9/4.0/1.7/8.4 (04/10 146) Estimated Creatinine Clearance: 91 mL/min (by C-G formula based on SCr of 1.11 mg/dL). No results found for: ALT, TRANSFERASEA, AST, GGT, GAMMAGT, ALKPHOS, BILITOTAL, BILIDIRECT No results found for: SEDRATE No results found for: CRP Urinalysis Lab Results Component Value Date SPGRVTYUR >1.045 (H) 03/16/2024 GLUCOSEURINE 250 mg/dL (A) 03/16/2024 KETONESURINE Negative 03/16/2024 BLOODURINE Negative 03/16/2024 NITRITESURIN Negative 03/16/2024 LEUKOCESTUR Negative 03/16/2024 WBCURINE 11 - 20 (A) 03/16/2024 RBCURINE 0-2 03/16/2024 BACTERIAURIN ABSENT 03/16/2024 Microbiology and Other Significant ID Labs: (personally reviewed) L ROSA MARIA Culture: enterococcus faecalis, pseudomonas putida, strep viridans. R ROSA MARIA Culture: pseudomonas putida, enterococcus faecalis WBC: 4.8k Imaging: (personally reviewed) -CTAP: Persistent bilateral inguinal collections, significantly increased in size on left. Thick peripheral wall, reflecting possible superimposed infection. Drain in left thigh does not transverse inguinal collection. ASSESSMENT: Melodie Medrano Jr. is a 58 y.o. 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 Bilateral inguinal collections -Culture of ROSA MARIA drains growing enterococcus faecalis, pseudomonas putida, strep viridans. Left ROSA MARIA drain on CT does not look to be placed correctly. No systemic symptoms currently. Will monitor sensitivities. -Will need direct samples from IR tap, to make sure we are not picking up contaminants present in the drain. 2. UTI/Cystitis -Patient is complaining of hesitancy and pain with urination. Patient more susceptible to UTI/cystitis due to anatomy. Will check UA/culture. RECOMMENDATIONS: Drainage and culture of fluid collections w/ IR scheduled today @4pm. Evaluate replacement of ROSA MARIA drains Zosyn 4.5 g 25 ml/hr q8h Vancomycin 15mg/kg q12h Obtain UA/culture Estimated Creatinine Clearance: 91 mL/min (by C-G formula based on SCr of 1.11 mg/dL). Patient was staffed with Dr. Shahzad Jackson ID Team 1 Will continue to follow with you. If you have any questions, please reach out to the ID Team 1 pager found in QGenda below. The ID Team pagers are available - Saturday through Saturday from 7:00 am to 06:00 pm. For emergent or after hour issues, please call the on-call ID Fellow pager. QGenda - [facility]-Wide Infectious Disease - Ludwin Booker, MS4 Associated attestation - Augusto Jackson MD, PhD - 04/10/2024 4:21 PM EDT ID Staff: I have interviewed and examined patient independently (04-10-24) and have discussed case with the ID team. I agree with the findings and recommendations as documented above by Student Dr. Booker. Pt is has g/o penile cancer s/p recent s/p resection including inguinofemoral lymphoidectomy complicated by bilateral inguinal fluid collections and c/f abscesses. He has been started on vanco and pip-tazo and scheduled for placement of drain into left sided collection. Please obtain new cultures from new drain. Augusto Jackson MD, PhD Division of Infectious Diseases [facility]09-27-2024 Consult note* Rebekah Boyd RN - 04/10/2024 1:48 AM EDT Vascular Access Procedure Note for Ultrasound Guided PIV Placement Assessment Melodie Medrano Jr. seen and evaluated for peripheral IV insertion using ultrasound guidance. ID band present, allergies verified and patient/nurse questioned of limb precautions. Skin integrity assessed, no evidence of condition that would prevent safe insertion of a peripheral IV with ultrasound. Allergies: No Known Allergies Insertion Ultrasound guided PIV: Peripheral IV placed per aseptic technique under ultrasound guidance on 1sr attempt(s). [x]Obtained labs. Peripheral IV Line - Single Lumen 04/10/24 014 forearm, anterior, right 20 gauge;1 1/4 in length (Active) 04/10/24146 Present On Admission : no Guiding Device: ultrasound Lumen 1: Additional Lumens: Lumen 2: Location: forearm, anterior, right Device/Lot Number: [id number] catheter system Gauge/Length: 20 gauge;1 1/4 in length Unsuccessful Insertion Attempts: Unsuccessful Attempt Location/Site: Pain Prevention/Patient Tolerance: distraction;tolerated well Removal: Additional Comments: placed by Rama Lora RN Lumen 3: Peripheral IV Present on Admission: (Retired/Read Only) Location: (Retired/Read Only) Device: (Retired/Read Only) Gauge/Length: System Specialist/Lot Number: Unsuccessful Insertion Attempts: (Retired/Read Only) Unsuccessful Attempt Locations: Pain Prevention: Patient Tolerance: Insertion: Removal Indication: Peripheral IV Location - Orientation: Peripheral IV Location: Insertion Site WDL WDL 04/10/24146 Site Preparation/Maintenance site cleansed: chlorhexidine solution;dressing: dry and intact 04/10/24146 Securement catheter stabilization device, secured with;site guard in place 04/10/24146 Date Dressing Changed 04/10/24 04/10/24146 Lumen 1 Patency/Maintenance flushed without difficulty;blood return, able to obtain 04/10/24146 Date Lumen 1 Cap/Connector Changed/Applied 04/10/24 04/10/24146 Phlebitis 0-->no symptoms 04/10/24146 Infiltration 0-->no symptoms 04/10/24146 Positive blood return noted, flushes easily, no edema, or leakage noted. Stabilization device used to secure IV, occlusive dressing applied. Denies pain at site. Patient tolerated procedure well. Site dated and initialed. Bedside RN notified of procedure completion Education Patient/Family informed to notify nurse of any complications including pain, redness, swelling, or leakage post insertion. Pt safety room check completed prior to exiting room. [x]Call light. [x]Bed locked. [x]Bed low. [x]Tray table within reach. Thank you for allowing our team to participate in the care of this patient. Vascular Access Team [id number] [facility]09-26-2024 History and physical note* Surendra Lockhart MD - 04/09/2024 8:36 PM EDT See Urology consult note dated 04/09/24 12:51 PM [facility]09-26-2024 History and physical note* Surendra Lockhart MD - 04/09/2024 8:36 PM EDT See Urology consult note dated 04/09/24 12:51 PM [facility] Nurse Note* Nursing Notes - Blaise Quinn RN - 04/09/2024 8:30 PM EDT On admission to [facility], from ED a dual RN initial assessment of skin condition was performed by LOUIS Lujan and LOUIS Hilton. Skin Assessment: Skin not within defined limits. - Photo taken and uploaded into notes in IHIS: Yes Pt is free of skin breakdown on coccyx and bony prominence. Some redness and swelling around Left groin/thigh Moreno Score: 22 LDA Added:No [facility]09-26-2024 Physician Emergency department Note* BIANCA Stack - 04/09/2024 6:44 PM EDT Signout: Melodie Medrano Jr. 58 y.o. male with a chief complaint of Post-Op Problem received in sign-out. Vitals: 04/09/24 0939 04/09/24 0945 04/09/24 1130 04/09/24 1619 BP: 122/73 107/63 131/76 Pulse: 80 75 70 Resp: 18 18 16 Temp: 97.9 degrees F (36.6 degrees C) 98.4 degrees F (36.9 degrees C) 97.5 degrees F (36.4 degrees C) TempSrc: Oral Oral Oral SpO2: 99% 92% 97% Weight: 106.1 kg (234 lb) Height: 1.956 m (6' 5) The patient presents with: Hx melanoma, penile cancer, DM, s/p bilateral groin lymphadenectomy 03/05c/s fluid collection (drained 03/20) now with recurrent fluid collection, given Vanco/Zosyn, CT prelim with incidental PE Pending studies and plan include: nothing The expected disposition is: admitted with service and bed, awaiting transport BIANCA Stack 04/09/24 1845 [facility] Work Phone: [phone] Emergency department Note* BIANCA Stack - 04/09/2024 6:44 PM EDT Signout: Melodie Medrano Jr. 58 y.o. male with a chief complaint of Post-Op Problem received in sign-out. Vitals: 04/09/24 0939 04/09/24 0945 04/09/24 1130 04/09/24 1619 BP: 122/73 107/63 131/76 Pulse: 80 75 70 Resp: 18 18 16 Temp: 97.9 degrees F (36.6 degrees C) 98.4 degrees F (36.9 degrees C) 97.5 degrees F (36.4 degrees C) TempSrc: Oral Oral Oral SpO2: 99% 92% 97% Weight: 106.1 kg (234 lb) Height: 1.956 m (6' 5) The patient presents with: Hx melanoma, penile cancer, DM, s/p bilateral groin lymphadenectomy 03/05c/s fluid collection (drained 03/20) now with recurrent fluid collection, given Vanco/Zosyn, CT prelim with incidental PE Pending studies and plan include: nothing The expected disposition is: admitted with service and bed, awaiting transport BIANCA Stack 04/09/24 6700 * Sumit Kong MD - 04/09/2024 11:11 AM EDT Images from the original note were not included. DEPARTMENT OF EMERGENCY MEDICINE HISTORY Chief Complaint Patient presents with Post-Op Problem \ 58 y.o. year old male history of DM, HTN, HLD, melanoma, penile CA, PE on xarelto here today for concern for left groin swelling. BL robotic assisted inguinofemoral lymphadenectomy on 03/06/24...s/p IR on 03/20/24 for 8 Fr drain placement on R side. IR drain is removed on R side last Saturday, but ROSA MARIA drains bilaterally and decreased output on left side and serosanguinous. L sided groin swelling and pain and fever w/ Tmax 102 Has previous history of similar complaints on R side and was admitted for fluid. REVIEW OF SYSTEMS All other review of systems were reviewed and are negative unless otherwise documented. PAST MEDICAL HISTORY Past Medical History: Diagnosis Date Diabetes mellitus Essential hypertension, benign Hyperlipidemia Melanoma left rib cage Penile ca Pulmonary embolism PAST SURGICAL HISTORY Past Surgical History: Procedure Laterality Date DRAINAGE SOFT TISSUE PERCUTANEOUS W/ IMAGE GUIDANCE N/A 03/20/2024 Laterality: N/A; Surgeon: Kisha Quarles DO; [facility] (VIR) LYMPHADENECTOMY INGUINOFEMORAL ROBOTIC Bilateral 03/05/2024 Laterality: Bilateral; Surgeon: Izaiah Maurer MD; [facility] AMPUTATION PENIS PARTIAL N/A 01/22/2024 Laterality: N/A; Surgeon: Izaiah Maurer MD; [facility] PER[facility] ACL RECONSTRUCTION BACK SURGERY FOOT SURGERY Bilateral reconstructive OTHER SURGICAL Right undescended testicle VASECTOMY ALLERGIES No Known Allergies PHYSICAL height is 1.956 m (6' 5) and weight is 106.1 kg (234 lb). His oral temperature is 97.9 F (36.6 C).His blood pressure is 122/73 and his pulse is 80. His respiration is 18 and oxygen saturation is 99%. General: well appearing, no distress HEENT: normocephalic, moist membranes, PERRL Respiratory: clear to auscultation, no wheezes, rales, or rhonchi Cardiovascular: regular rate and rhythm, no murmurs, rubs, or gallops GI: soft, nontender, no rebound tenderness or guarding : Skin: warm, dry, no rashes Musculoskeletal: no joint swelling or deformity, moves all extremities Neuro: alert, oriented, face symmetric, sensation intact throughout ASSESSMENT 58 y.o. year old male history of DM, HTN, HLD, melanoma, penile CA, PE on xarelto here today for concern for left groin swelling. Hx of inguinofemoral lymphadenectomy on 03/06/24 with bilateral ROSA MARIA drains. Differential diagnosis includes but not limited to abscess, seroma, edema, lymphadenopathy. Low suspicion for cellulitis. Will admit for IR placement and urology consulted admitted to Dr. Maurer. Patient seen and examined independently, case discussed with advanced practice provider. Medical Decision Making Amount and/or Complexity of Data Reviewed Labs: ordered. Radiology: ordered. Risk Prescription drug management. Decision regarding hospitalization. On 04/09/2024, I saw and evaluated the patient with MARINA. I provided a substantive portion of the care for this patient. I personally performed all aspects of the medical decision making for this encounter. I have reviewed and verified this with the MARINA so that it accurately reflects our care. Sumit Kong MD 04/09/24 1623 * Jc Yanes PA-C - 04/09/2024 10:58 AM EDT Images from the original note were not included. EMERGENCY DEPARTMENT ENCOUNTER CHIEF COMPLAINT Post-Op Problem HPI Melodie Medrano Jr. is a 58 y.o. male with PMH Diabetes mellitus, Essential hypertension, benign, Hyperlipidemia, Melanoma, Penile ca s/p B/L inguinofemoral lymphadenectomy with and Pulmonary embolism, who presents via POV from home to the ED, with complaint of left groin swelling and pain, fever (tmax 102 at home). Previously admitted with right groin swelling and pain with RLE U/S showing fluid collection to right groin, which IR placed drain and pt discharged home with IR drain, 2 Jps from previous lymphadenectomy, and on Bactrim. Pt completed Bactrim last week. IR drain removed last week. Both ROSA MARIA drains remain, patient reports decrease drainage into left ROSA MARIA drain and describes serosanguinous drainage output. Yesterday he began having swelling and pain to his left groin. reports tmax of 102 last night.Patient states this feels similar to his last ED visit except on right side. Denies chest pain, dyspnea, abdominal pain, nausea, and vomiting. HPI obtained from: patient and . Forensic Chemist: none REVIEW OF SYSTEMS Review of Systems Constitutional: Positive for chills and fever. Negative for appetite change, diaphoresis and fatigue. HENT: Negative for congestion. Respiratory: Negative for cough, shortness of breath and wheezing. Cardiovascular: Negative for chest pain, palpitations and leg swelling. Gastrointestinal: Negative for constipation, diarrhea, nausea and vomiting. Genitourinary: Positive for hematuria and scrotal swelling (left sided groin swelling). Negative for dysuria and testicular pain. Musculoskeletal: Negative for arthralgias and back pain. Skin: Negative for color change. Neurological: Negative for dizziness, syncope and numbness. Psychiatric/Behavioral: Negative for agitation and suicidal ideas. PAST MEDICAL HISTORY Past Medical History: Diagnosis Date Diabetes mellitus Essential hypertension, benign Hyperlipidemia Melanoma left rib cage Penile ca Pulmonary embolism SURGICAL HISTORY Past Surgical History: Procedure Laterality Date DRAINAGE SOFT TISSUE PERCUTANEOUS W/ IMAGE GUIDANCE N/A 03/20/2024 Laterality: N/A; Surgeon: Kisha Quarles DO; [facility] (VIR) LYMPHADENECTOMY INGUINOFEMORAL ROBOTIC Bilateral 03/05/2024 Laterality: Bilateral; Surgeon: Izaiah Maurer MD; [facility] MA[facility] OR AMPUTATION PENIS PARTIAL N/A 01/22/2024 Laterality: N/A; Surgeon: Izaiah Maurer MD; [facility] PERIOP ACL RECONSTRUCTION BACK SURGERY FOOT SURGERY Bilateral reconstructive OTHER SURGICAL Right undescended testicle VASECTOMY MEDICATIONS Current Outpatient Medications Medication Sig Acetaminophen 325 MG tablet Take 2 tablets by mouth every 6 hours for 7 days. amLODIPine 5 MG tablet Take 1-2 tablets by mouth daily. Cholecalciferol (Vitamin D) 25 MCG (1000 UT) tablet Take 1 tablet by mouth daily. cyanocobalamin 100 MCG tablet Take 1 tablet by mouth daily. Cyclobenzaprine 5 MG tablet Take 1 tablet by mouth 3 times daily as needed for Muscle spasms or Moderate Pain for up to 7 days. Elastic Bandages & Supports (Medical Compression Stockings) Misc 1 Each by Unknown route daily. Gabapentin 100 MG capsule Take 1 capsule by mouth 3 times daily for 7 days. lisinopril 30 MG tablet Take 1 tablet by mouth daily. metFORMIN-XR 500 MG Tab SR 24 HR Take 1 tablet by mouth 2 times daily. Metoprolol succinate 50 MG tablet XL Take 1 tablet by mouth daily. omega-3 acid ethyl esters 1 g capsule Take 2 capsules by mouth 2 times daily. oxyCODONE 5 MG tablet Take 1 tablet by mouth every 6 hours as needed for Moderate Pain or Severe Pain for up to 7 days. Polyethylene Glycol 3350 (PEG 3350) 17 GM/SCOOP Powder Take 17 g by mouth daily. Rosuvastatin 10 MG tablet Take 1 tablet by mouth daily. Sulfamethoxazole-trimethoprim 800-160 MG per tablet Take 1 tablet by mouth 2 times daily for 14 days. Tamsulosin HCl 0.4 MG capsule Take 1 capsule by mouth daily Turmeric (QC TUMERIC COMPLEX PO) Take by mouth. Xarelto 20 MG tablet Take 1 tablet by mouth daily with dinner. You may resume taking this medication as previously prescribed after discharge. For refills contact Dr. Juarez. ALLERGIES No Known Allergies FAMILY HISTORY Family History Problem Relation Age of Onset Aneurysm Father Cancer- Other Father melanoma Lung Cancer Maternal Grandmother SOCIAL HISTORY Social History Socioeconomic History Marital status: Tobacco Use Smoking status: Former Types: Cigarettes Smokeless tobacco: Former Types: Chew Substance and Sexual Activity Alcohol use: Yes Alcohol/week: 4.0 standard drinks of alcohol Types: 4 Shots of liquor per week Drug use: Never Social Determinants of Health Food Insecurity: No Food Insecurity (03/17/2024) Hunger Vital Sign Worried About Running Out of Food in the Last Year: Never true Ran Out of Food in the Last Year: Never true Transportation Needs: No Transportation Needs (03/17/2024) PRAPARE - Transportation Lack of Transportation (Medical): No Lack of Transportation (Non-Medical): No Intimate Partner Violence: Not At Risk (03/17/2024) Humiliation, Afraid, Rape, and Kick questionnaire Fear of Current or Ex-Partner: No Emotionally Abused: No Physically Abused: No Sexually Abused: No Housing Stability: Unknown (03/17/2024) Housing Stability Vital Sign Unable to Pay for Housing in the Last Year: No Homeless in the Last Year: No PHYSICAL EXAM Vitals: 04/09/24 0939 04/09/24 0945 04/09/24 1130 BP: 122/73 107/63 Pulse: 80 75 Resp: 18 18 Temp: 97.9 degrees F (36.6 degrees C) 98.4 degrees F (36.9 degrees C) TempSrc: Oral Oral SpO2: 99% 92% Weight: 106.1 kg (234 lb) Height: 1.956 m (6' 5) Physical Exam Constitutional: General: He is not in acute distress. Appearance: Normal appearance. He is normal weight. He is not ill-appearing, toxic-appearing or diaphoretic. HENT: Head: Normocephalic and atraumatic. Nose: Nose normal. Mouth/Throat: Mouth: Mucous membranes are moist. Eyes: Extraocular Movements: Extraocular movements intact. Pupils: Pupils are equal, round, and reactive to light. Cardiovascular: Rate and Rhythm: Normal rate and regular rhythm. Pulses: Normal pulses. Heart sounds: Normal heart sounds. Pulmonary: Effort: Pulmonary effort is normal. No respiratory distress. Breath sounds: Normal breath sounds. No wheezing or rales. Abdominal: General: Abdomen is flat. There is no distension. Palpations: Abdomen is soft. Tenderness: There is no abdominal tenderness. Genitourinary: Comments: Swelling and tenderness to the left groin with erythema that extends to suprapubic region. B/l ROSA MARIA drains with scant serosanguinous fluid. Musculoskeletal: General: Normal range of motion. Cervical back: Normal range of motion and neck supple. Skin: General: Skin is warm and dry. Neurological: General: No focal deficit present. Mental Status: He is alert. Psychiatric: Mood and Affect: Mood normal. Behavior: Behavior normal. ASSESSMENT / PLAN / MDM Melodie Medrano Jr. is a 58 y.o. male with PMH with PMH Diabetes mellitus, Essential hypertension,benign, Hyperlipidemia, Melanoma, Penile ca s/p B/L inguinofemoral lymphadenectomy and Pulmonary embolism on Xarelto, who presents via POV from home to the ED, with complaint of left groin swelling and pain, fever (tmax 102 at home). Upon exam, patient is awake, alert and oriented x3, afebrile, non-toxic appearing, and hemodynamically stable with swelling, erythema, and tenderness to the left groin. DIFFERENTIAL Dx includes, but not limited to: cellulitis, abscess, NSTI PLAN Labs: chem 7, CBC Imaging: CT AP to knees per Urology recs. Ordered. Consults: Consult urology. Therapeutics: Medications Morphine (PF) injection 2 mg (2 mg Intravenous Given 04/09/24 1141) Sodium chloride 0.9% IV solution 500 mL (500 mL Intravenous $$New Bag$$ 04/09/24 1143) Results for orders placed or performed during the hospital encounter of 04/09/24 [facility] 7 - ED Result Value Ref Range Sodium 134 (L) 135 - 145 mmol/L Potassium 4.1 3.5 - 5.0 mmol/L Chloride 102 98 - 108 mmol/L CO2 23 21 - 31 mmol/L Glucose 182 (H) 70 - 99 mg/dL BUN 14 7 - 25 mg/dL Creatinine 0.92 0.70 - 1.30 mg/dL Bun/Crea Ratio 15 Osmolality (Calculated) 287 278 - 305 mOsm/kg Anion Gap 13 7 - 17 mmol/L eGFR, CKD-EPI, Male >90 >=60 mL/min/1.73m2 CBC AND ELECTRONIC DIFF Result Value Ref Range WBC Count 9.18 3.73 - 10.10 K/uL RBC Count 4.43 4.38 - 5.83 M/uL Hemoglobin 13.3 (L) 13.4 - 16.8 g/dL Hematocrit 38.3 (L) 39.6 - 48.8 % Mean Cell Volume 86.5 79.0 - 94.5 fL Mean Cell Hgb 30.0 26.1 - 33.3 pg Mean Cell Hgb Conc 34.7 31.9 - 36.5 g/dL RBC Distribution 13.9 10.9 - 14.3 % Platelet Count 212 146 - 337 K/uL Mean Platelet Volume 8.8 8.7 - 12.3 fL DIFF STATUS Electronic Differential Segs + Bands Auto 72.2 % Immature Grans % 0.4 % Lymphocyte % Auto 17.1 % Monocyte % Auto 8.3 % Eosinophil % Auto 1.7 % Basophil % Auto 0.3 % Nucleated RBC 0.0 <=0.2 /100 WBC Segs + Bands,Absolute Auto 6.62 (H) 1.57 - 6.19 K/uL Immature Grans Absolute 0.04 <=0.07 K/uL Abs Lymph Auto 1.57 0.83 - 3.57 K/uL Abs [place] Auto 0.76 0.24 - 0.93 K/uL Abs Eos Auto 0.16 0.00 - 0.48 K/uL Abs Baso Auto <0.04 0.00 - 0.09 K/uL CT ABDOMEN/PELVIS WITH CONTRAST (Results Pending) ED COURSE / MDM: I have reviewed the labs and imaging for the visit and noted the abnormal results. CBC and chem panel are unremarkable except for small left shift and glucose of 182. Patient has been afebrile and hemodynamically stable. CT AP to knees ordered per urology recs, but not done yet. Urology consulted and recommended admission to Dr. Kelley, IR consult for psb drainage, IV zosyn/vanc, repeat ROSA MARIA cx b/l and to hold Xeralto. Medical Decision Making Amount and/or Complexity of Data Reviewed External Data Reviewed: labs, radiology and notes. Labs: Decision-making details documented in ED Course. Radiology: ordered. Risk Prescription drug management. Decision regarding hospitalization. IMPRESSION ICD-10-CM 1. Left groin pain R10.32 2. Penile cancer C60.9 DISPOSITION admission Results and plan were discussed with the patient and patient verbalized understanding and agreement. All questions from pt were answered. This was a shared visit with Dr. Kong. The plan of care was discussed with the attending physician. This dictation was created with voice recognition software. While attempts have been made to reviewthe dictation as it is transcribed, on occasion the spoken word can be misinterpreted by the technology leading to omissions or inappropriate words, phrases or sentences. Note to patient: The Cures Act makes medical notes like these available to patients inthe interest of transparency. However, be advised this is a medical document. It is intended as nnrg-vs-pgen communication. It is written in medical language and may contain abbreviations or verbiagethat are unfamiliar. It may appear blunt or direct. Medical documents are intended to carry relevant information, facts as evident, and the clinical opinion of the practitioner. Jc Yanes PA-C 04/09/24 1425 Jc Yanes PA-C 04/09/24 1427 * Swathi Nunez RN - 04/09/2024 9:41 AM EDT Pt with hx penile cancer not currently receiving chemotherapy or radiation, had bilateral groin lymph node removal on 03/05, was here with c/f infection at the beginning of March, was admitted for5 days and had additional drain placed. Pt presenting for continued swelling, pain to L groin and Lthigh. Pt with fever at home yesterday, chills beginning yesterday and continuing today. Has two ROSA MARIA drains, denies drainage around insertion sites, denies changes to fluid collected in drains. [facility] Emergency department Note* Sumit Kong MD - 04/09/2024 11:11 AM EDT Images from the original note were not included. DEPARTMENT OF EMERGENCY MEDICINE HISTORY Chief Complaint Patient presents with Post-Op Problem \ 58 y.o. year old male history of DM, HTN, HLD, melanoma, penile CA, PE on xarelto here today for concern for left groin swelling. BL robotic assisted inguinofemoral lymphadenectomy on 03/06/24...s/p IR on 03/20/24 for 8 Fr drain placement on R side. IR drain is removed on R side last Saturday, but ROSA MARIA drains bilaterally and decreased output on left side and serosanguinous. L sided groin swelling and pain and fever w/ Tmax 102 Has previous history of similar complaints on R side and was admitted for fluid. REVIEW OF SYSTEMS All other review of systems were reviewed and are negative unless otherwise documented. PAST MEDICAL HISTORY Past Medical History: Diagnosis Date Diabetes mellitus Essential hypertension, benign Hyperlipidemia Melanoma left rib cage Penile ca Pulmonary embolism PAST SURGICAL HISTORY Past Surgical History: Procedure Laterality Date DRAINAGE SOFT TISSUE PERCUTANEOUS W/ IMAGE GUIDANCE N/A 03/20/2024 Laterality: N/A; Surgeon: Kisha Quarles DO; Location: [facility] INTERVENTIONAL RADIOLOGY (VIR) LYMPHADENECTOMY INGUINOFEMORAL ROBOTIC Bilateral 03/05/2024 Laterality: Bilateral; Surgeon: Izaiah Maurer MD; [facility] MA[facility] OR AMPUTATION PENIS PARTIAL N/A 01/22/2024 Laterality: N/A; Surgeon: Izaiah Maurer MD; [facility] PERIOP ACL RECONSTRUCTION BACK SURGERY FOOT SURGERY Bilateral reconstructive OTHER SURGICAL Right undescended testicle VASECTOMY ALLERGIES No Known Allergies PHYSICAL height is 1.956 m (6' 5) and weight is 106.1 kg (234 lb). His oral temperature is 97.9 F (36.6 C).His blood pressure is 122/73 and his pulse is 80. His respiration is 18 and oxygen saturation is 99%. General: well appearing, no distress HEENT: normocephalic, moist membranes, PERRL Respiratory: clear to auscultation, no wheezes, rales, or rhonchi Cardiovascular: regular rate and rhythm, no murmurs, rubs, or gallops GI: soft, nontender, no rebound tenderness or guarding : Skin: warm, dry, no rashes Musculoskeletal: no joint swelling or deformity, moves all extremities Neuro: alert, oriented, face symmetric, sensation intact throughout ASSESSMENT 58 y.o. year old male history of DM, HTN, HLD, melanoma, penile CA, PE on xarelto here today for concern for left groin swelling. Hx of inguinofemoral lymphadenectomy on 03/06/24 with bilateral ROSA MARIA drains. Differential diagnosis includes but not limited to abscess, seroma, edema, lymphadenopathy. Low suspicion for cellulitis. Will admit for IR placement and urology consulted admitted to Dr. Maurer. Patient seen and examined independently, case discussed with advanced practice provider. Medical Decision Making Amount and/or Complexity of Data Reviewed Labs: ordered. Radiology: ordered. Risk Prescription drug management. Decision regarding hospitalization. On 04/09/2024, I saw and evaluated the patient with MARINA. I provided a substantive portion of the care for this patient. I personally performed all aspects of the medical decision making for this encounter. I have reviewed and verified this with the MARINA so that it accurately reflects our care. Sumit Kong MD 04/09/24 1623 [facility] Work Phone: 1(621) 205-907209-26-2024 Physician Emergency department Note* Jc Yanes PA-C - 04/09/2024 10:58 AM EDT Images from the original note were not included. EMERGENCY DEPARTMENT ENCOUNTER CHIEF COMPLAINT Post-Op Problem HPI Melodie Hernandez Mitchell Rea. is a 58 y.o. male with PMH Diabetes mellitus, Essential hypertension, benign, Hyperlipidemia, Melanoma, Penile ca s/p B/L inguinofemoral lymphadenectomy with and Pulmonary embolism, who presents via POV from home to the ED, with complaint of left groin swelling and pain, fever (tmax 102 at home). Previously admitted with right groin swelling and pain with RLE U/S showing fluid collection to right groin, which IR placed drain and pt discharged home with IR drain, 2 Jps from previous lymphadenectomy, and on Bactrim. Pt completed Bactrim last week. IR drain removed last week. Both ROSA MARIA drains remain, patient reports decrease drainage into left ROSA MARIA drain and describes serosanguinous drainage output. Yesterday he began having swelling and pain to his left groin. reports tmax of 102 last night.Patient states this feels similar to his last ED visit except on right side. Denies chest pain, dyspnea, abdominal pain, nausea, and vomiting. HPI obtained from: patient and . Forensic Chemist: none REVIEW OF SYSTEMS Review of Systems Constitutional: Positive for chills and fever. Negative for appetite change, diaphoresis and fatigue. HENT: Negative for congestion. Respiratory: Negative for cough, shortness of breath and wheezing. Cardiovascular: Negative for chest pain, palpitations and leg swelling. Gastrointestinal: Negative for constipation, diarrhea, nausea and vomiting. Genitourinary: Positive for hematuria and scrotal swelling (left sided groin swelling). Negative for dysuria and testicular pain. Musculoskeletal: Negative for arthralgias and back pain. Skin: Negative for color change. Neurological: Negative for dizziness, syncope and numbness. Psychiatric/Behavioral: Negative for agitation and suicidal ideas. PAST MEDICAL HISTORY Past Medical History: Diagnosis Date Diabetes mellitus Essential hypertension, benign Hyperlipidemia Melanoma left rib cage Penile ca Pulmonary embolism SURGICAL HISTORY Past Surgical History: Procedure Laterality Date DRAINAGE SOFT TISSUE PERCUTANEOUS W/ IMAGE GUIDANCE N/A 03/20/2024 Laterality: N/A; Surgeon: Kisha Quarles DO; [facility] INTERVENTIONAL RADIOLOGY (VIR) LYMPHADENECTOMY INGUINOFEMORAL ROBOTIC Bilateral 03/05/2024 Laterality: Bilateral; Surgeon: Izaiah Maurer MD; [facility] MA[facility] OR AMPUTATION PENIS PARTIAL N/A 01/22/2024 Laterality: N/A; Surgeon: Izaiah Maurer MD; [facility] PERIOP ACL RECONSTRUCTION BACK SURGERY FOOT SURGERY Bilateral reconstructive OTHER SURGICAL Right undescended testicle VASECTOMY MEDICATIONS Current Outpatient Medications Medication Sig Acetaminophen 325 MG tablet Take 2 tablets by mouth every 6 hours for 7 days. amLODIPine 5 MG tablet Take 1-2 tablets by mouth daily. Cholecalciferol (Vitamin D) 25 MCG (1000 UT) tablet Take 1 tablet by mouth daily. cyanocobalamin 100 MCG tablet Take 1 tablet by mouth daily. Cyclobenzaprine 5 MG tablet Take 1 tablet by mouth 3 times daily as needed for Muscle spasms or Moderate Pain for up to 7 days. Elastic Bandages & Supports (Medical Compression Stockings) Misc 1 Each by Unknown route daily. Gabapentin 100 MG capsule Take 1 capsule by mouth 3 times daily for 7 days. lisinopril 30 MG tablet Take 1 tablet by mouth daily. metFORMIN-XR 500 MG Tab SR 24 HR Take 1 tablet by mouth 2 times daily. Metoprolol succinate 50 MG tablet XL Take 1 tablet by mouth daily. omega-3 acid ethyl esters 1 g capsule Take 2 capsules by mouth 2 times daily. oxyCODONE 5 MG tablet Take 1 tablet by mouth every 6 hours as needed for Moderate Pain or Severe Pain for up to 7 days. Polyethylene Glycol 3350 (PEG 3350) 17 GM/SCOOP Powder Take 17 g by mouth daily. Rosuvastatin 10 MG tablet Take 1 tablet by mouth daily. Sulfamethoxazole-trimethoprim 800-160 MG per tablet Take 1 tablet by mouth 2 times daily for 14 days. Tamsulosin HCl 0.4 MG capsule Take 1 capsule by mouth daily Turmeric (QC TUMERIC COMPLEX PO) Take by mouth. Xarelto 20 MG tablet Take 1 tablet by mouth daily with dinner. You may resume taking this medication as previously prescribed after discharge. For refills contact Dr. Juarez. ALLERGIES No Known Allergies FAMILY HISTORY Family History Problem Relation Age of Onset Aneurysm Father Cancer- Other Father melanoma Lung Cancer Maternal Grandmother SOCIAL HISTORY Social History Socioeconomic History Marital status: Tobacco Use Smoking status: Former Types: Cigarettes Smokeless tobacco: Former Types: Chew Substance and Sexual Activity Alcohol use: Yes Alcohol/week: 4.0 standard drinks of alcohol Types: 4 Shots of liquor per week Drug use: Never Social Determinants of Health Food Insecurity: No Food Insecurity (03/17/2024) Hunger Vital Sign Worried About Running Out of Food in the Last Year: Never true Ran Out of Food in the Last Year: Never true Transportation Needs: No Transportation Needs (03/17/2024) PRAPARE - Transportation Lack of Transportation (Medical): No Lack of Transportation (Non-Medical): No Intimate Partner Violence: Not At Risk (03/17/2024) Humiliation, Afraid, Rape, and Kick questionnaire Fear of Current or Ex-Partner: No Emotionally Abused: No Physically Abused: No Sexually Abused: No Housing Stability: Unknown (03/17/2024) Housing Stability Vital Sign Unable to Pay for Housing in the Last Year: No Homeless in the Last Year: No PHYSICAL EXAM Vitals: 04/09/24 0939 04/09/24 0945 04/09/24 1130 BP: 122/73 107/63 Pulse: 80 75 Resp: 18 18 Temp: 97.9 degrees F (36.6 degrees C) 98.4 degrees F (36.9 degrees C) TempSrc: Oral Oral SpO2: 99% 92% Weight: 106.1 kg (234 lb) Height: 1.956 m (6' 5) Physical Exam Constitutional: General: He is not in acute distress. Appearance: Normal appearance. He is normal weight. He is not ill-appearing, toxic-appearing or diaphoretic. HENT: Head: Normocephalic and atraumatic. Nose: Nose normal. Mouth/Throat: Mouth: Mucous membranes are moist. Eyes: Extraocular Movements: Extraocular movements intact. Pupils: Pupils are equal, round, and reactive to light. Cardiovascular: Rate and Rhythm: Normal rate and regular rhythm. Pulses: Normal pulses. Heart sounds: Normal heart sounds. Pulmonary: Effort: Pulmonary effort is normal. No respiratory distress. Breath sounds: Normal breath sounds. No wheezing or rales. Abdominal: General: Abdomen is flat. There is no distension. Palpations: Abdomen is soft. Tenderness: There is no abdominal tenderness. Genitourinary: Comments: Swelling and tenderness to the left groin with erythema that extends to suprapubic region. B/l ROSA MARIA drains with scant serosanguinous fluid. Musculoskeletal: General: Normal range of motion. Cervical back: Normal range of motion and neck supple. Skin: General: Skin is warm and dry. Neurological: General: No focal deficit present. Mental Status: He is alert. Psychiatric: Mood and Affect: Mood normal. Behavior: Behavior normal. ASSESSMENT / PLAN / MDM Melodie Medrano Jr. is a 58 y.o. male with PMH with PMH Diabetes mellitus, Essential hypertension,benign, Hyperlipidemia, Melanoma, Penile ca s/p B/L inguinofemoral lymphadenectomy and Pulmonary embolism on Xarelto, who presents via POV from home to the ED, with complaint of left groin swelling and pain, fever (tmax 102 at home). Upon exam, patient is awake, alert and oriented x3, afebrile, non-toxic appearing, and hemodynamically stable with swelling, erythema, and tenderness to the left groin. DIFFERENTIAL Dx includes, but not limited to: cellulitis, abscess, NSTI PLAN Labs: chem 7, CBC Imaging: CT AP to knees per Urology recs. Ordered. Consults: Consult urology. Therapeutics: Medications Morphine (PF) injection 2 mg (2 mg Intravenous Given 04/09/24 1141) Sodium chloride 0.9% IV solution 500 mL (500 mL Intravenous $$New Bag$$ 04/09/24 1149) Results for orders placed or performed during the hospital encounter of 04/09/24 [facility] 7 - ED Result Value Ref Range Sodium 134 (L) 135 - 145 mmol/L Potassium 4.1 3.5 - 5.0 mmol/L Chloride 102 98 - 108 mmol/L CO2 23 21 - 31 mmol/L Glucose 182 (H) 70 - 99 mg/dL BUN 14 7 - 25 mg/dL Creatinine 0.92 0.70 - 1.30 mg/dL Bun/Crea Ratio 15 Osmolality (Calculated) 287 278 - 305 mOsm/kg Anion Gap 13 7 - 17 mmol/L eGFR, CKD-EPI, Male >90 >=60 mL/min/1.73m2 CBC AND ELECTRONIC DIFF Result Value Ref Range WBC Count 9.18 3.73 - 10.10 K/uL RBC Count 4.43 4.38 - 5.83 M/uL Hemoglobin 13.3 (L) 13.4 - 16.8 g/dL Hematocrit 38.3 (L) 39.6 - 48.8 % Mean Cell Volume 86.5 79.0 - 94.5 fL Mean Cell Hgb 30.0 26.1 - 33.3 pg Mean Cell Hgb Conc 34.7 31.9 - 36.5 g/dL RBC Distribution 13.9 10.9 - 14.3 % Platelet Count 212 146 - 337 K/uL Mean Platelet Volume 8.8 8.7 - 12.3 fL DIFF STATUS Electronic Differential Segs + Bands Auto 72.2 % Immature Grans % 0.4 % Lymphocyte % Auto 17.1 % Monocyte % Auto 8.3 % Eosinophil % Auto 1.7 % Basophil % Auto 0.3 % Nucleated RBC 0.0 <=0.2 /100 WBC Segs + Bands,Absolute Auto 6.62 (H) 1.57 - 6.19 K/uL Immature Grans Absolute 0.04 <=0.07 K/uL Abs Lymph Auto 1.57 0.83 - 3.57 K/uL Abs [place] Auto 0.76 0.24 - 0.93 K/uL Abs Eos Auto 0.16 0.00 - 0.48 K/uL Abs Baso Auto <0.04 0.00 - 0.09 K/uL CT ABDOMEN/PELVIS WITH CONTRAST (Results Pending) ED COURSE / MDM: I have reviewed the labs and imaging for the visit and noted the abnormal results. CBC and chem panel are unremarkable except for small left shift and glucose of 182. Patient has been afebrile and hemodynamically stable. CT AP to knees ordered per urology recs, but not done yet. Urology consulted and recommended admission to Dr. Kelley, IR consult for psb drainage, IV zosyn/vanc, repeat ROSA MARIA cx b/l and to hold Xeralto. Medical Decision Making Amount and/or Complexity of Data Reviewed External Data Reviewed: labs, radiology and notes. Labs: Decision-making details documented in ED Course. Radiology: ordered. Risk Prescription drug management. Decision regarding hospitalization. IMPRESSION ICD-10-CM 1. Left groin pain R10.32 2. Penile cancer C60.9 DISPOSITION admission Results and plan were discussed with the patient and patient verbalized understanding and agreement. All questions from pt were answered. This was a shared visit with Dr. Kong. The plan of care was discussed with the attending physician. This dictation was created with voice recognition software. While attempts have been made to reviewthe dictation as it is transcribed, on occasion the spoken word can be misinterpreted by the technology leading to omissions or inappropriate words, phrases or sentences. Note to patient: The 21st Century Cures Act makes medical notes like these available to patients inthe interest of transparency. However, be advised this is a medical document. It is intended as aoga-jp-wano communication. It is written in medical language and may contain abbreviations or verbiagethat are unfamiliar. It may appear blunt or direct. Medical documents are intended to carry relevant information, facts as evident, and the clinical opinion of the practitioner. Jc Yanes PA-C 04/09/24 1425 Jc Yanes PA-C 04/09/24 1427 [facility] Emergency department Note* Swathi Nunez RN - 04/09/2024 9:41 AM EDT Pt with hx penile cancer not currently receiving chemotherapy or radiation, had bilateral groin lymph node removal on 03/05, was here with c/f infection at the beginning of March, was admitted for5 days and had additional drain placed. Pt presenting for continued swelling, pain to L groin and Lthigh. Pt with fever at home yesterday, chills beginning yesterday and continuing today. Has two ROSA MARIA drains, denies drainage around insertion sites, denies changes to fluid collected in drains. [facility]09-20-[facility] History of Present illness Narrative* Izaiah Maurer MD - 04/03/2024 12:30 PM EDT Interval History His pain has improved ROS Complete review of systems was conducted with pertinent positives and negatives detailed above. PE Constitutional: No apparent distress HEENT: Conjunctivae normal no visible neck nodes or pathology Cardiovascular: Looks well perfused Pulmonary/Chest: Respirations are even and non-labored Abdominal: Without distension Neurological: Alert and oriented, normal posturet Psych: Mood and affect within normal limits Extremities: Movement of all extremities, no cyanosis Skin: No relevant abnormalities in visualized areas Limited lymphedema. Drains serous. A&P Removed IR drain No cellulitis Outputs still >100cc/day Recommended r/a in 2 weeks Discussed negative path and plan for surveillance Revisit 04/13 Izaiah Maurer MD Certified Composites Technician of Urologic Surgery Division of Urologic Oncology [facility]* Nursing Notes - Agnieszka Dumont RN - 03/20/2024 5:59 PM EDT Patient provided with prescriptions and discharge instructions thoroughly explained. All questions/concerns addressed. Patient and family denies needs at this time. All belongings returned to patient. PIV Discontinued per protocol. Patient discharged per wheelchair by IN HOUSE C[facility]09-06-2024 Miscellaneous Notes* Nursing Notes - Agnieszka Dumont RN - 03/20/2024 5:59 PM EDT Patient provided with prescriptions and discharge instructions thoroughly explained. All questions/concerns addressed. Patient and family denies needs at this time. All belongings returned to patient. PIV Discontinued per protocol. Patient discharged per wheelchair by IN HOUSE CRA * Nursing Notes - Yokasta nOeill RN - 03/20/2024 2:43 PM EDT Interventional Radiology procedure completed of image guided drain placement with IR Attending Hector Burgess with sedation and local numbing agent. Intra- procedure specimens collected and sent to lab for analysis. Pt to travel back to inpatient unit for post procedure recovery. * Plan of Care - Doreen Rosado RN - 03/19/2024 1:02 PM EDT Your patient has been scheduled tomorrow, 03/20 for an US guided aspiration +/- drain placement in IR. Please make pt NPO at [facility]. Pt will need IV access for sedation and must be able to lay flatfor approximately 1 hour. * Plan of Care - Fausto Sheets MD - 03/19/2024 12:17 PM EDT Interventional Radiology Plan of Care Note Will plan for image guided aspiration of right groin collection with or without drain placement tomorrow. Please have patient NPO. Fausto Sheets MD * Plan of Care - Gayle Obrien RN - 03/18/2024 6:17 PM EDT Patient's ROSA MARIA cultures were sent. His ROSA MARIA output 0800 ROSA MARIA drain 1 - 60 ROSA MARIA drain 2 - 30 1100 ROSA MARIA drain 1 - 100 ROSA MARIA drain 2 - 20 1500 ROSA MARIA drain 1 - 33 ROSA MARIA drain 2 - 90 Patient is tolerating his diet well with no complains of nausea. He complained of pain not being well controlled by oxy and morphine. Team is aware. Problem: Adult Inpatient Plan of Care Goal: Plan of Care Review Outcome: Progressing Goal: Patient-Specific Goal (Individualized) Outcome: Progressing Goal: Absence of Hospital-Acquired Illness or Injury Outcome: Progressing Goal: Optimal Comfort and Wellbeing Outcome: Progressing Goal: Readiness for Transition of Care Outcome: Progressing * Plan of Care - Gayle Obrien RN - 03/17/2024 1:19 PM EDT Patient's ROSA MARIA cultures were sent. His ROSA MARIA output 0800 ROSA MARIA drain 1 - 50 ROSA MARIA drain 2 - 50 1100 ROSA MARIA drain 1 - 30 ROSA MARIA drain 2 - 10 Patient is tolerating his diet well with no complains of nausea. Paged team about pain not being controlled with oxy 10. PRN IV medications added Problem: Adult Inpatient Plan of Care Goal: Plan of Care Review Outcome: Progressing Goal: Patient-Specific Goal (Individualized) Outcome: Progressing Goal: Absence of Hospital-Acquired Illness or Injury Outcome: Progressing Goal: Optimal Comfort and Wellbeing Outcome: Progressing Goal: Readiness for Transition of Care Outcome: Progressing * Nursing Notes - Deborah Neves RN - 03/17/2024 10:32 AM EDT Initial Assessment Referral Information Arrived From: emergency department Readmission Information Was patient readmitted within 30 Days?: No Information Source Information Source: patient , review of medical record Information Source Name: Melodie Medrano Information Source Number: see demographics. Outpatient Providers Outpatient Providers Updated In IHIS: Yes Contact Information Crew Leader/Control Room Operator/SW Added to Care Team: Yes This Telehealth Case Manager is Primary Crew Leader/Control Room Operator/SW: Yes Crew Leader/Control Room Operator Name: Deborah Rowley Crew Leader/Control Room Operator's Phone Number: [phone] Social Work Contact Name: see care team Mercerizing Range Feeder's Phone Number: see care team Living Environment Lives With: spouse Living Arrangement and Set Up: house Provides Primary Care For: no one Caregiving Concerns: denies concerns. Primary Care Provided By: self, spouse/significant other Support System: Immediate family Able to Return to Prior Arrangements: yes Functional Status Patient's Functional Status Prior To This Admission?: Independent Are There Status Changes This Admission?: No Changes Observed Since Admission?: No Changes Observed Concerns With Patient Being Able To Care For Themselves At Discharge? : Has Assistance (Friend, Family, Skilled Provider) Who Is Patient's Primary Contact For Discharge Planning, Education And Care For Discharge?: Spouse-Mendoza Can Support Person Meet The Care Needs Of The Patient?: Yes Employment/Financial Employed?: Yes Employment Details: employed Employment/Financial Concerns: no Employment/Financial Comments: NA Source Of Income: salary/wages Financial Concerns: none Insurance Medical Insurance Verified: Yes Prescription Coverage: Yes Pharmacy updated in IHIS: Yes Initial Discharge Planning Home Care Services (RAGMAN): No Home Therapies (RAGMAN): None DME (RAGMAN): Other (comment), Glucometer (yvette ferreira) Medical Supplies (RAGMAN): Glucose testing strips Patient Goal for Discharge: Return home with assistance from family and friends Expected Discharge Disposition: Home Anticipated Services at Discharge: Wound/drain Anticipated Changes Related to Illness: inability to work Current Discharge Risk: other (see comments) Transportation Available: car, family or friend will provide Discharge Coordination/Progress: see demographics Assessment/Concerns to be Addressed Concerns To Be Addressed: denies needs/concerns at this time Concerns Comments: see notes. Discharge Planning Referral Information Arrived From: emergency department Final Discharge Planning Discharge Disposition: (P) Home Services at Discharge: (P) Wound/drain/line/ostomy-supplies (healing surgical incisions/ ROSA MARIA drain x2) CM/SW AVS Portion Completed: (P) Yes (Retired/Read Only) Plan Plan: (P) Planning for discharge to home on 03/18/24 Patient/Family In Agreement With Plan: (P) yes Plan Comments: (P) see notes. PCRM Initial Assessment and Final Discharge Planning Note Met with the patient to complete the initial assessment and to discuss final discharge plan. The patient is getting ready to leave for duplex studies. Explained role and function of PCRM in multidisciplinary team. Demographic information reviewed with patient and confirmed as correct. Reason for Admission: Melodie Cullenjas Luther is a 58 year old male with h/o of DVT/PE (mult s/p surgery or travel) on xarelto, DM, HTN, HLD, melanoma. He was taken to the OR on 03/05/24 for BL robotic assisted inguinofemoral lymphadenectomy with Dr. Maurer on 03/05/24. He discharged on 03/06/24. Presented to ED 03/16/2024 for one day history of right groin / thigh pain. CT AP with notable amounts of gas in scrotum and groin however consistent with previous robotic surgery. Discharge Plan of Care: Patient discussed in multidisciplinary rounds. Patient is medically ready for discharge tomorrow, pending pain control/medical stability. Services for Discharge: Discharging to home with family support when medically stable. The patient will discharge with ROSA MARIA drain x2 in place. He feels comfortable managing these drains at home. Advanced directives: Patient does not have Advanced Directives on File Consults with Final Discharge Recommendations NA Lines/Drains/Tubes/Wounds/Supplies for Discharge Healing surgical incisions (Dermabond) ROSA MARIA drain x [address] discharge[address] YVETTE hose. Medications No barriers anticipated in obtaining discharge medications. No prior authorizations anticipated. Reconciliation of medications to be completed by the medical team. Awaiting final plan for AC. Durable Medical Equipment The patient states that he is independent a baseline. Choice Was Patient Choice Provided: N/A Transportation Transportation will be provided by family. Education Discharge education provided by the medical team and updated in the After Visit Summary. Follow Up(s) Any follow up requested by the medical team arranged. Appointments in the After Visit Summary. Future Appointments Date Time Provider Department Center 03/20/2024 2:15 PM MD ROE Kerr [facility] Awaiting confirmation of follow up appt. Was Ambulatory PCRM added to the Care Team? Yes- Handoff criteria met Was a handoff made to an Ambulatory PCRM? Yes Referral completed and sent to [facility], phone number [phone]. The PCRM or medical team will update the patient's nurse regarding the final discharge plan once plan is finalized. Risk of Readmission: 8.9 Category Reference: Low: 0% - 5% Medium - Low: 5.1% - 10% Medium - High: 10.1% - 16% High: 16.1% - 100% Readmission Risk Interventions Documented: Yes No other discharge needs have been identified at this time. This plan was developed in collaboration with the patient and caregiver/preferred decision maker and is in agreement with final discharge plan. Please refer to AVS and medical record for additional information. Patient instructed to call with questions. PCRM will continue to follow with medical team for any additional discharge planning needs. Deborah Neves MSN, ACM-RN Patient Care Chef Teacher Pager# [phone] If any changes to this individualized plan of care during evening and weekend hours and assistance is needed, please page the director medical economics PCRM at [phone]. * Nursing Notes - Zoya Crump RN - 03/16/2024 6:41 PM EDT On admission to [facility], from ED a dual RN initial assessment of skin condition was performed by Zoya Crmup RN and Grazyna Rodriguez RN. Skin Assessment: Generalized blanchable redness. Swelling near right groin site. 6 lap sites on bilateral thighs. JPdrains x 2. Moreno Score: 20 LDA Added:No * Nursing Notes - Grazyna Cervantes RN - 03/16/2024 6:[address] Ramos [phone] [facility] room [id number] new admit from ED here thanks documented in this [facility]09-06-2024 Hospital course Narrative* Henrry Calero MD - 03/20/2024 3:57 PM EDT Images from the original note were not included. Discharge Summary Name: Melodie Medrano Jr. Age: 58 y.o. Birthday: 1965 Admit Date: 03/16/2024 5:53 PM Discharge Date: 03/20/24 Discharge Time: 4:00 PM Discharge Unit: Urology Admission Information Admitting Physician: Izaiah Maurer MD Discharge Information Discharge Physician: Izaiah Maurer MD Problem List Active Hospital Problems Diagnosis Skin wound from surgical incision Groin pain, right Resolved Hospital Problems No resolved problems to display. Brief Summary of Hospital Course for Discharge Summary: Melodie Medrano Jr. is a 58 y.o. male with a history of DM, HTN, HLD, DVT/PE on Xarelto and melanoma who presented to [facility] on 03/16/2024 right groin/thigh pain. He was taken to the OR on 03/05/24 for BL robotic assisted inguinofemoral lymphadenectomy with Dr. Maurer on 03/05/24. He discharged on 03/06/24.The patient tolerated the procedure well and postoperative course was uncomplicated. Pt was readmitted to [facility] on 03/16 for groin/thigh pain. He was started on Vanco and Zosyn upon admission and de-esclated to oral bactrim. RLE doppler US with no DVT. Urine cx with NG. B/L ROSA MARIA cx with noorganisms seen. Blood cx with NG 3/5. Pt was added to culture follow up list to monitor while outpatient. 03/18 RLE US - Heterogeneous, ill-defined fluid collection in the right groin measures 7.0 x1.8 x 3.4cm. Surrounding tissues are edematous. IR consulted to determine if able to drain. Patient was ableto go to IR on 03/20/24 where an 8 Fr drain was placed, the fluid collection was aspirated, and a sample sent for culture. The patient was discharged to home with 2x ROSA MARIA drain and 1x IR drain in place. He was sent home on acourse of bactrim. At time of discharge, patient was afebrile, hemodynamically stable, tolerating diet, and pain was controlled with oral medications. Patient will follow-up in clinic with Dr. Maurer on 04/03/24. All other discharge instructions and follow up information are in the patient's After Visit Summary. Summary of last selected lab results and date obtained: Lab Results Component Value Date WBC 5.33 03/20/2024 HGB 10.8 (L) 03/20/2024 HCT 31.3 (L) 03/20/2024 PLATELET 194 03/20/2024 MCV 87.4 03/20/2024 Lab Results Component Value Date SODIUM 134 (L) 03/20/2024 POTASSIUM 4.0 03/20/2024 CHLORIDE 103 03/20/2024 CO2 22 03/20/2024 BUN 15 03/20/2024 CREATSERUM 0.92 03/20/2024 GLUCOSE 153 (H) 03/20/2024 No results found for: ALT, TRANSFERASEA, AST, GGT, GAMMAGT, ALKPHOS, BILITOTAL, BILIDIRECT Brief Summary of Labs for Discharge Summary: Discharge Orders AMB REFERRAL TO ONCOLOGY DISCHARGE FOLLOW-UP CLINIC Current Outpatient Meds: Medication List for when you go home START taking these medications Morning Afternoon Evening Bedtime As Needed Cyclobenzaprine 5 MG TABS Take 1 tablet by mouth 3 times daily as needed for Muscle spasms or Moderate Pain for up to 7 days. Commonly known as: FLEXERIL Last time this was given: 5 mg on March 19, 2024 9:44 PM docusate 100 MG CAPS Take 1 capsule by mouth 2 times daily for 7 days. Last time this was given: 100 mg on March 19, 2024 7:31 AM Gabapentin 100 MG CAPS Take 1 capsule by mouth 3 times daily for 7 days. Commonly known as: NEURONTIN Last time this was given: 100 mg on March 20, 2024 9:43 AM CHANGE how you take these medications Morning Afternoon Evening Bedtime As Needed Acetaminophen 325 MG tablet Take 2 tablets by mouth every 6 hours for 7 days. Commonly known as: TYLENOL What changed: How often you have reported taking this medication has changed Sulfamethoxazole-trimethoprim 800-160 MG per tablet Take 1 tablet by mouth every 12 hours for 10 days. Commonly known as: BACTRIM DS What changed: How often you have reported taking this medication has changed Last time this was given: 1 tablet on March 20, 2024 9:45 AM Xarelto 20 MG tablet Take 1 tablet by mouth daily with dinner. For diagnoses: 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, unspecified laterality What changed: The quantity you have reported taking of this medication has changed How you take your medication has changed How often you have reported taking this medication has changed additional instructions Last time this was given: 20 mg on March 17, 2024 7:45 AM Generic drug: Rivaroxaban CONTINUE taking these medications Morning Afternoon Evening Bedtime As Needed amLODIPine 5 MG TABS Take 1-2 tablets by mouth daily. Commonly known as: NORVASC Last time this was given: 5 mg on March 20, 2024 9:42 AM cyanocobalamin 100 MCG TABS Take 1 tablet by mouth daily. Commonly known as: VITAMIN B12 lisinopril 30 MG TABS Take 1 tablet by mouth daily. Commonly known as: PRINIVIL Last time this was given: 30 mg on March 19, 2024 9:44 PM Medical Compression Stockings MISC 1 Each by Unknown route daily. metFORMIN-XR 500 MG tab XL Take 1 tablet by mouth 2 times daily. Commonly known as: GLUCOPHAGE-XR Metoprolol succinate 50 MG tablet XL Take 1 tablet by mouth daily. Commonly known as: TOPROL-XL Last time this was given: 50 mg on March 20, 2024 9:44 AM omega-3 acid ethyl esters 1 g CAPS Take 2 capsules by mouth 2 times daily. Commonly known as: LOVAZA oxyCODONE 5 MG TABS Take 1 tablet by mouth every 6 hours as needed for Moderate Pain or Severe Pain for up to 7 days. Commonly known as: ROXICODONE For diagnoses: Malignant neoplasm of penis Last time this was given: 10 mg on March 20, 2024 5:03 AM Polyethylene glycol 17 g PACK packet Take 1 packet by mouth daily. Commonly known as: MIRALAX QC TUMERIC COMPLEX PO Take by mouth. Rosuvastatin 10 MG TABS Take 1 tablet by mouth daily. Commonly known as: CRESTOR Tamsulosin HCl 0.4 MG CAPS Take 1 capsule by mouth daily Commonly known as: FLOMAX Last time this was given: 0.4 mg on March 20, 2024 9:45 AM Vitamin D 25 MCG (1000 UT) TABS Take 1 tablet by mouth daily. STOP taking these medications Enoxaparin Sodium 40 MG/0.4ML injection Commonly known as: LOVENOX Medication Instructions: Learning About Safely Storing and Getting Rid of Opioid Pills and Patches Why are opioid pills and patches dangerous? Opioids are medicines used to relieve moderate to severe pain. They may be used for a short time for pain, such as after surgery. Or they may be used to relieve long-term pain. When your doctor prescribes an opioid, you're getting strong medicine. It's important to protect others from its risks. Opioid medicine can cause serious problems, and even , if it's misused. Children and pets are at high risk when an opioid is kept within their reach. Opioid skin patches, such as fentanyl, are the most dangerous. Even a used patch still has a high dose of medicine in it.Small children have been killed by opioid patches they've found in the trash at home. Opioids can also be abused or stolen. Be sure to store your medicine in a safe and secure place. When you are done using opioid medicine, get rid of it right away, and in the safest way you can. How do you safely store opioid pills and patches? It's important to store opioids safely so that they aren't used by the wrong person. Your pain medicine is only for you to take. If someone else takes your medicine, it can harm that person. You can safely store your medicine. Follow these tips. Store pills and patches up high and out of sight. Keep them away from children and pets. Return the container to the same place each time you take your medicine. Try locking your opioid medicine in a cabinet. Make sure the bottles are closed tightly. If they have a safety cap, make sure that it's locked. Tighten the cap until you hear a click or can't twist it anymore. Keep track of how many pills or patches you have left. You may want to keep track in a notebook. Let the people who live with you know about your medicine. Tell them that it is only for you to take. If guests have opioid medicine with them, ask them to keep it safe. How do you safely get rid of opioid pills and patches? If you have opioid pills or patches that you are not going to use, get rid of them right away. The U.S. Food and Drug Administration (FDA) recommends that you take your opioid pills and patches to a drop-off box or take-back program that is authorized by the U.S. Drug Enforcement Administration (ALEJANDRA). If you can't get to a ALEJANDRA-authorized site right away and your medicine doesn't have specific disposal information (such as flushing), you can dispose of them in your household trash using these steps. Take the medicine out of its container. Mix it with something that tastes bad, such as cat litter or coffee grounds. Place the mixture in a sealed plastic bag, and put the bag in your household trash. Only flush your medicine down the toilet if you can't get to a ALEJANDRA-approved site or if your medicine instructions state clearly to flush them. Go to www.fda.gov/Drugs/ResourcesForYou/Consumers/BuyingU singMedicineSafely/EnsuringSafeUseofMedicine/SafeDisposalofMedicines/cij966963.h tm to see a list ofmedicines that should be flushed. Take special care with used opioid patches. As soon as you peel a patch off of your skin, fold it in half with the sticky sides together. Immediately take it to a ALEJANDRA-authorized site or flush it downthe toilet if a ALEJANDRA-authorized site isn't available in your area. Do not throw them in the trash. Where can you go to learn more? To learn how and where to get rid of unused medicines in your area, ask your doctor or pharmacist for help. Your local trash and recycle center may have a drop-off site. You can also look online at the ALEJANDRA's Diversion Control Division website (deadiversion.MAPPINGoj.gov) to find a disposal site near you. Or you can visit fda.gov and search for unused medicine disposal. Follow-up care is a cannon part of your treatment and safety. Be sure to make and go to all appointments, and call your doctor if you are having problems. It's also a good idea to know your test resultsand keep a list of the medicines you take. Where can you learn more? Go to http://www.[employer].[facility].edu/patiented. Enter N709 in the search box to learn more about 'Learning About Safely Storing and Getting Rid of Opioid Pills and Patches.' Interested in seeing a video go to https://[employer].comu.edu/videolibrary to see all video content. Current as of: October 09, 2018 Content Version: 12.2 2851-2453 [employer]. Care instructions adapted under license by your healthcare professional. If you have questions about a medical condition or this instruction, always ask your healthcare professional. [employer] disclaims any warranty or liability for your use of this information. Follow-up: No follow-up provider specified. Upcoming Appointments (up to five)-Some appointments for [facility] outpatient clinics or diagnostic testing locations are not displayed below Provider Department Dept Phone 04/03/2024 12:30 PM Izaiah Maurer Division of Urological Surgery at [facility] Arrive at: Arrive to First Floor Registration [phone] Henrry Calero MD [facility]* Nursing Notes - Yokasta Oneill RN - 03/20/2024 2:43 PM EDT Interventional Radiology procedure completed of image guided drain placement with IR Attending Hector Burgess with sedation and local numbing agent. Intra- procedure specimens collected and sent to lab for analysis. Pt to travel back to inpatient unit for post procedure recovery. [facility]09-06-[facility]24 History of Present illness Narrative* Deborah Neves RN - 03/20/2024 8:50 AM EDT Per medical team, the patient will discharge to home today, as planned. The patient is planning forIR procedure today. Two week follow up appt request sent to scheduling at this time. If drain is placed and the patient needs to flush drain at home, he will need sent home with 10 cc saline syringes. Medical team aware. Please see discharge note completed 03/18-03/19 for additional information. Future Appointments Date Time Provider Department Center 04/03/2024 12:30 PM Izaiah Maurer MD [facility] Deborah Neves, MSN, ACM-RN Patient Care Chef Teacher Pager# [phone] * Sudhakar Nicole PA-C - 03/20/2024 4:53 AM EDT Urology Daily Progress Note Last 24 Hours Yesterday/Overnight: Over the past 24 hours, notable events are listed below: Pending US guided aspiration +/- drain placement with IR on 03/20/2024: Procedure(s) (LRB): Drainage Soft Tissue Percutaneous W/ Image Guidance Soft Tissue Drainage (N/A) Yesterday, a heparin drip was started while awaiting IR procedure; home dose of Xarelto is held. Patient was made NPO at midnight. Blood Cx NG day 2/ Bilateral ROSA MARIA drain cultures with no organisms seen Added PRN ibuprofen and scheduled gabapentin for pain UOP: Unmeasurable occurences R Drain #1: x/60/25 = 85 (275) L Drain #2: x/60/60 = 120 (190) Stool: 0x Afebrile, VSS. On room air Labs stable as annotated below. Subjective: Patient states some increased tightness and pain to bilateral upper thighs/groin (Right> Left) this morning. Pain is currently controlled with medications. He is NPO for upcoming procedure today; denies nausea or vomiting. Physical Exam Gen: NAD HEENT: NCAT CV: Hemodynamically normal Chest: No increased work of breathing, RA Abdominal: Soft, non-distended, nontender. Ext: R>L LE edema; stable on exam without erythema. BLE with thigh high yvette hose in place. Bilateral drains to thighs with serous output. : Voiding without difficulties. Laboratory Studies and Objective Data Temp: [98 F (36.7 C)-98.7 F (37.1 C)] 98.3 F (36.8 C) Pulse (Heart Rate): [65-69] 65 Resp Rate: [18] 18 BP: (117-142)/(70-80) 142/80 O2 Sat (%): [94 %-95 %] 95 % Weight: [114.8 kg (253 lb)] 114.8 kg (253 lb) Oxygen Therapy O2 Sat (%): 95 % O2 Device: room air 24 hour outputs: Intake/Output Summary (Last 24 hours) at 03/20/2024 0516 Last data filed at 03/20/2024 0500 Gross per 24 hour Intake 0.45 ml Output 205 ml Net -204.55 ml WBC/Hgb/Hct/Plts: 5.33/10.8/31.3/194 (03/20 0503) Bun/Creat/Cl/CO2/Glucose: --/--/--/--/185 (03/19 2031) Imaging 03/18/2024, CT Pelvis with contrast IMPRESSION: 1. Post partial penectomy and bilateral inguinofemoral lymph node dissection. Stable to increased size of bilateral inguinal collections from recent CT dated March 16, 2024. Air pockets along the soft tissues and scrotum have slightly decreased from prior exam. 2. Other ancillary findings as described above. Assessment/Plan Melodie Medrano Jr. is a 58 y.o. 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 He was taken to the OR on 03/05/24 for BL robotic assisted inguinofemoral lymphadenectomy with Dr. Maurer on 03/05/24. He discharged on 03/06/24. Presented to ED 03/16/2024 for right groin / thigh pain. CT AP with gas in scrotum and groin; however, consistent with previousrobotic surgery and low suspicion for cellulitis of Vishal's. Bilateral inguinal fluid collections also noted on CT imaging. IR consulted for drain placement vs aspiration; planned following procedure for 03/20/24: Procedure(s) (LRB): Drainage Soft Tissue Percutaneous W/ Image Guidance Soft Tissue Drainage (N/A) Today's Plan: > NPO at midnight for planned IR procedure today > Heparin drip will be held for planned procedure > Continue to hold Xarelto; discuss resumption timing with IR > Continue oral Bactrim Complexity. Hypocalcemia - Continue to monitor and replete. Any conditions listed below are present on admission unless otherwise specified. .Precipitous Drop in Hemoglobin - Patient has been on IVF since admission - No evidence of bleeding - Continue to monitor daily CBC - Consider transfusion if Hgb < 7 - DIET NPO with meds - IVF: LR @ 75mL/hr - Pain control: Scheduled acetaminophen; PRN oxycodone - Activity: OOB, ambulation encouraged - Electrolytes: Replete to goals - Prophylaxis: SCDs, IS - Level of care: MedSurg - Dispo: Pending hospital course Patient seen on rounds with Chief Resident and will discuss with Dr. Maurer. Sudhakar Nicole PARadhaC Urologic Surgery Please page/call the Urology resident on first call on [employer] ([employer] > [facility] > [facility]> select appropriate resident) with any issues/concerns; this note does not necessarilyreflect who is currently director medical economics * Deborah Neves RN - 03/19/2024 2:40 PM EDT Discharge Planning Referral Information Arrived From: emergency department Final Discharge Planning Discharge Disposition: (P) Home Services at Discharge: (P) Wound/drain/line/ostomy-supplies (healing surgical incisions/ ROSA MARIA drain x2, fluid collection drain) CM/SW AVS Portion Completed: (P) Yes (Retired/Read Only) Plan Plan: (P) Planning for discharge to home on 03/20/24 Patient/Family In Agreement With Plan: (P) yes Plan Comments: (P) see notes. PCRM Initial Assessment and Final Discharge Planning Note Met with the patient to complete the initial assessment and to discuss final discharge plan. The patient is getting ready to leave for duplex studies. Explained role and function of PCRM in multidisciplinary team. Demographic information reviewed with patient and confirmed as correct. 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 He was taken to the OR on 03/05/24 for BL robotic assisted inguinofemoral lymphadenectomy with Dr. Maurer on 03/05/24. He discharged on 03/06/24. Presented to ED 03/16/2024 for one day history of right groin / thigh pain. CT AP with notable amounts of gas in scrotum and groin however consistent with previous robotic surgery. Discharge Plan of Care: Patient discussed in multidisciplinary rounds. Patient is medically ready for discharge tomorrow, pending pain control/medical stability, IR procedure. Services for Discharge: Discharging to home with family support when medically stable. The patient will discharge with ROSA MARIA drain x2 and fluid collection in place. He feels comfortable managing these drains at home. Advanced directives: Patient does not have Advanced Directives on File Consults with Final Discharge Recommendations NA Lines/Drains/Tubes/Wounds/Supplies for Discharge Healing surgical incisions (Dermabond) ROSA MARIA drain x [address] discharge. Possible IR drain. (Procedure scheduled on 03/20) YVETTE hose. Medications No barriers anticipated in obtaining discharge medications. No prior authorizations anticipated. Reconciliation of medications to be completed by the medical team. Awaiting final plan for AC. Durable Medical Equipment The patient states that he is independent a baseline. Choice Was Patient Choice Provided: N/A Transportation Transportation will be provided by family. Education Discharge education provided by the medical team and updated in the After Visit Summary. Follow Up(s) Any follow up requested by the medical team arranged. Appointments in the After Visit Summary. Awaiting confirmation of follow up appt. Was Ambulatory PCRM added to the Care Team? Yes- Handoff criteria met Was a handoff made to an Ambulatory PCRM? Yes Referral completed and sent to [facility], phone number [phone]. The PCRM or medical team will update the patient's nurse regarding the final discharge plan once plan is finalized. Risk of Readmission: 8.9 Category Reference: Low: 0% - 5% Medium - Low: 5.1% - 10% Medium - High: 10.1% - 16% High: 16.1% - 100% Readmission Risk Interventions Documented: Yes No other discharge needs have been identified at this time. This plan was developed in collaboration with the patient and caregiver/preferred decision maker and is in agreement with final discharge plan. Please refer to AVS and medical record for additional information. Patient instructed to call with questions. PCRM will continue to follow with medical team for any additional discharge planning needs. DEON Rojas, ACM-RN Patient Care Chef Teacher Pager# [phone] If any changes to this individualized plan of care during evening and weekend hours and assistance is needed, please page the director medical economics PCRM at [phone]. * Joann Pereira APRN-MIXER ATTENDANT - 03/19/2024 6:52 AM EDT Urology Daily Progress Note Last 24 Hours Yesterday/Overnight: Over the past 24 hours, notable events are listed below: -IR consulted to determine if able to drain vs place new drain to inguinal fluid collection -CT pelvis completed at the request of IR: Post partial penectomy and bilateral inguinofemoral lymph node dissection. Stable to increased size of bilateral inguinal collections from recent CT dated March 16, 2024. Air pockets along the soft tissues and scrotum have slightly decreased from prior exam. Blood Cx NG day 08/19 Bilateral ROSA MARIA drain cultures with no organisms seen Added PRN ibuprofen and scheduled gabapentin for pain UOP: Unmeasurable occurences R Drain #1: 100/135/40 = 275 (340) L Drain #2: 20/130/40 = 190 (250) Stool: 0x Afebrile, VSS. On room air Labs stable as annotated below. Subjective: is present at bedside. Patient states is still feeling pain to right thigh/groin this morning, but improved from yesterday. He is tolerating diet without nausea or vomiting, currently NPO for possible IR procedure today. Denies N/V, SOB, CP. Physical Exam Gen: NAD HEENT: NCAT CV: Hemodynamically normal Chest: No increased work of breathing, RA Abdominal: Soft, non-distended, nontender. Ext: R>L LE edema. BLE with thigh high yvette hose in place. Bilateral drains to thighs with serousoutput. : Voiding without difficulties. Laboratory Studies and Objective Data Temp: [97.8 F (36.6 C)-99 F (37.2 C)] 97.8 F (36.6 C) Pulse (Heart Rate): [60-74] 63 Resp Rate: [18] 18 BP: (113-133)/(70-81) 126/79 O2 Sat (%): [93 %-96 %] 94 % Oxygen Therapy O2 Sat (%): 94 % O2 Device: room air 24 hour outputs: Intake/Output Summary (Last 24 hours) at 03/19/2024 0653 Last data filed at 03/19/2024 0325 Gross per 24 hour Intake 171.15 ml Output 465 ml Net -293.85 ml WBC/Hgb/Hct/Plts: 6.19/11.3/32.9/190 (03/19 330) Na/K+/Phos/Mg/Ca: 137/3.9/3.9/1.9/8.5 (03/19 330) Bun/Creat/Cl/CO2/Glucose: 13/0.97/103/25/214 (03/19 330) Assessment/Plan Melodie Medrano Jr. is a 58 y.o. 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 He was taken to the OR on 03/05/24 for BL robotic assisted inguinofemoral lymphadenectomy with Dr. Maurer on 03/05/24. He discharged on 03/06/24. Presented to ED 03/16/2024 for one day history of right groin / thigh pain. CT AP with notable amounts of gas in scrotum and groin however consistent with previous robotic surgery. Today's Plan: > PO intake and ambulation encouraged > Continue oral bactrim > Continue ibuprofen PRN and scheduled gabapentin for pain > Continue to hold Xarelto > Keep NPO > Discuss CT scan findings with IR to determine if able to drain/place new drain RLE inguinal collection Complexity. Hypocalcemia - Continue to monitor and replete. Any conditions listed below are present on admission unless otherwise specified. .Precipitous Drop in Hemoglobin - Patient has been on IVF since admission - No evidence of bleeding - Continue to monitor daily CBC - Consider transfusion if Hgb < 7 - DIET NPO with meds - IVF: LR @ 75mL/hr - Pain control: Scheduled acetaminophen; PRN oxycodone - Activity: OOB, ambulation encouraged - Electrolytes: Replete to goals - Prophylaxis: SCDs, IS - Level of care: MedSurg - Dispo: Pending hospital course Patient seen on rounds with Chief Resident and will discuss with Dr. Maurer. BIANCA Ulloa Urologic Surgery Pager: [phone] Please page/call the Urology resident on first call on [facility] ([employer] > [facility] > [facility]> select appropriate resident) with any issues/concerns; this note does not necessarilyreflect who is currently director medical economics * Scarlett Grewal - 03/18/2024 7:14 AM EDT Non vascular ultrasound complete report to follow * Joann Pereira APRN-MIXER ATTENDANT - 03/18/2024 5:13 AM EDT Urology Daily Progress Note Last 24 Hours Yesterday/Overnight: Over the past 24 hours, notable events are listed below: RLE doppler negative DVT Urine cx with NG Blood Cx NG day 07/19 Bilateral ROSA MARIA drain cultures with no organisms seen R thigh ROSA MARIA re-sutured yesterday as previous one was too tight Added PRN morphine IV for pain UOP: 5x R Drain #1: 80/200/19=403 (150) L Drain #2: 60/160/45=644 (200) Stool: 0x Afebrile, VSS. On room air Labs stable as annotated below. Subjective: is present at bedside. hvac maintenance technician at bedside performing US RLE. Patient states is still feeling pain to right thigh/groin this morning. He is tolerating diet without nausea or vomiting. Denies N/V, SOB, CP. Discussed possibly starting NSAID as morphine isn't touching pain. Physical Exam Gen: NAD HEENT: NCAT CV: Hemodynamically normal Chest: No increased work of breathing, RA Abdominal: Soft, non-distended, nontender. Ext: R>L LE edema. RLE with marking noted to upper thigh without additional redness noted outside of marking. Bilateral drains to thighs with serous output. BLE with SCDs in place : Voiding without difficulties. Laboratory Studies and Objective Data Temp: [97.5 F (36.4 C)-98.4 F (36.9 C)] 97.7 F (36.5 C) Pulse (Heart Rate): [61-70] 64 Resp Rate: [16-18] 16 BP: (112-139)/(70-81) 139/79 O2 Sat (%): [92 %-99 %] 97 % Weight: [108.4 kg (239 lb)] 108.4 kg (239 lb) Oxygen Therapy O2 Sat (%): 97 % O2 Device: room air 24 hour outputs: Intake/Output Summary (Last 24 hours) at 03/18/2024 0556 Last data filed at 03/18/2024 0007 Gross per 24 hour Intake 1320.85 ml Output 590 ml Net 730.85 ml WBC/Hgb/Hct/Plts: 6.40/11.2/32.6/183 (03/18 6) Na/K+/Phos/Mg/Ca: 135/3.9/3.7/1.6/8.6 (03/18 6) Bun/Creat/Cl/CO2/Glucose: 13/0.88/100/25/191 (03/18 6) Assessment/Plan Melodie Medrano Jr. is a 58 y.o. 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 He was taken to the OR on 03/05/24 for BL robotic assisted inguinofemoral lymphadenectomy with Dr. Maurer on 03/05/24. He discharged on 03/06/24. Presented to ED 03/16/2024 for one day history of right groin / thigh pain. CT AP with notable amounts of gas in scrotum and groin however consistent with previous robotic surgery. Today's Plan: > PO intake and ambulation encouraged > Continue oral bactrim > FU RLE US > Stop trending lactates > Start ibuprofen for pain > Continue to hold Xarelto Complexity. Any conditions listed below are present on admission unless otherwise specified. .Precipitous Drop in Hemoglobin - Patient has been on IVF since admission - No evidence of bleeding - Continue to monitor daily CBC - Consider transfusion if Hgb < 7 - DIET REGULAR - IVF: LR @ 75mL/hr - Pain control: Scheduled acetaminophen; PRN oxycodone - Activity: OOB, ambulation encouraged - Electrolytes: Replete to goals - Prophylaxis: SCDs, IS - Level of care: MedSurg - Dispo: Pending hospital course Patient seen on rounds with Chief Resident and will discuss with Dr. Maurer. BIANCA Ulloa Urologic Surgery Pager: [phone] Please page/call the Urology resident on first call on [facility] ([facility] > [facility] > [facility]> select appropriate resident) with any issues/concerns; this note does not necessarilyreflect who is currently director medical economics * BIANCA Ulloa - 03/17/2024 6:33 AM EDT Urology Daily Progress Note Last 24 Hours Yesterday/Overnight: Over the past 24 hours, notable events are listed below: Admitted yesterday UOP: 1x unmeasured Drain 1: -/60/69=849 Drain 2: -/110/14=879 Afebrile, VSS. On room air Labs stable as annotated below. Subjective: is present at bedside. Patient states is feeling some relief to right thigh this morning, pain has slightly improved. Pain is currently controlled. He is tolerating diet without nausea or vomiting. Denies N/V, SOB, CP. Physical Exam Gen: NAD HEENT: NCAT CV: Hemodynamically normal Chest: No increased work of breathing, RA Abdominal: Soft, non-distended, nontender. Ext: R>L LE edema. RLE with marking noted to upper thigh without additional redness noted outside of marking. Bilateral drains to thighs with serous output. BLE with thigh high yvette hose in place. : Voiding without difficulties. Laboratory Studies and Objective Data Temp: [97.2 F (36.2 C)-98.1 F (36.7 C)] 97.8 F (36.6 C) Pulse (Heart Rate): [64-86] 64 Resp Rate: [16-20] 18 BP: (118-144)/(67-81) 129/79 O2 Sat (%): [95 %-100 %] 95 % Weight: [108.4 kg (239 lb)] 108.4 kg (239 lb) Oxygen Therapy O2 Sat (%): 95 % O2 Device: room air 24 hour outputs: Intake/Output Summary (Last 24 hours) at 03/17/2024 0635 Last data filed at 03/17/2024 0600 Gross per 24 hour Intake 986.71 ml Output 350 ml Net 636.71 ml WBC/Hgb/Hct/Plts: 7.94/10.1/30.3/181 (03/17 405) Na/K+/Phos/Mg/Ca: 135/4.1/3.7/1.5/8.2 (03/17 405) Bun/Creat/Cl/CO2/Glucose: 11/0.88/103/22/177 (03/17 0405) Assessment/Plan Melodie Medrano Jr. is a 58 y.o. 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 He was taken to the OR on 03/05/24 for BL robotic assisted inguinofemoral lymphadenectomy with Dr. Maurer on 03/05/24. He discharged on 03/06/24. Presented to ED 03/16/2024 for one day history of right groin / thigh pain. CT AP with notable amounts of gas in scrotum and groin however consistent with previous robotic surgery. Today's Plan: > PO intake and ambulation encouraged > Discontinue Vanco and Zosyn, switch to oral bactrim > Send bilateral drain culture from JPs to thighs > FU urine cx > FU Blood cx > FU duplex > Continue to trend lactate Q6 hrs for 24 hrs > Will plan to resuture right thigh ROSA MARIA > SCD's to be work on BLE, ordered Complexity. Hypomagnesemia - Continue to monitor and replete. Hypocalcemia - Continue to monitor and replete. Any conditions listed below are present on admission unless otherwise specified. .Precipitous Drop in Hemoglobin - Patient has been on IVF since admission - No evidence of bleeding - Continue to monitor daily CBC - Consider transfusion if Hgb < 7 - DIET REGULAR - IVF: LR @ 75mL/hr - Pain control: Scheduled acetaminophen; PRN oxycodone - Activity: OOB, ambulation encouraged - Electrolytes: Replete to goals - Prophylaxis: SCDs, IS - Level of care: MedSurg - Dispo: Pending hospital course Patient seen on rounds with Chief Resident and will discuss with Dr. Maurer. BIANCA Ulloa Urologic Surgery Pager: [phone] Please page/call the Urology resident on first call on [facility] ([facility] > [facility] > [facility]> select appropriate resident) with any issues/concerns; this note does not necessarilyreflect who is currently director medical economics [facility] of care [facility]* Plan of Care - Doreen Rosado RN - 03/19/2024 1:02 PM EDT Your patient has been scheduled tomorrow, 03/20 for an US guided aspiration +/- drain placement in IR. Please make pt NPO at [facility]. Pt will need IV access for sedation and must be able to lay flatfor approximately 1 hour. [facility] Plan of care note* Plan of Care - Fausto Sheets MD - 03/19/2024 12:17 PM EDT Interventional Radiology Plan of Care Note Will plan for image guided aspiration of right groin collection with or without drain placement tomorrow. Please have patient NPO. Fausto Sheets MD [facility] Plan of care note* Plan of Care - Gayle Obrien RN - 03/18/2024 6:17 PM EDT Patient's ROSA MARIA cultures were sent. His ROSA MARIA output 0800 ROSA MARIA drain 1 - 60 ROSA MARIA drain 2 - 30 1100 ROSA MARIA drain 1 - 100 ROSA MARIA drain 2 - 20 1500 ROSA MARIA drain 1 - 33 ROSA MARIA drain 2 - 90 Patient is tolerating his diet well with no complains of nausea. He complained of pain not being well controlled by oxy and morphine. Team is aware. Problem: Adult Inpatient Plan of Care Goal: Plan of Care Review Outcome: Progressing Goal: Patient-Specific Goal (Individualized) Outcome: Progressing Goal: Absence of Hospital-Acquired Illness or Injury Outcome: Progressing Goal: Optimal Comfort and Wellbeing Outcome: Progressing Goal: Readiness for Transition of Care Outcome: Progressing [facility]09-04-2024 Consult note* Kaycee Salazar APRN-CHUCK - 03/18/2024 11:55 AM EDT Images from the original note were not included. INTERVENTIONAL RADIOLOGY CONSULT NOTE PATIENT: Melodie Medrano Jr. Admission Date: 03/16/2024 Requesting Provider/Service: Izaiah Maurer MD Reason for Consult: Hx BL robotic assisted inguinofemoral lymphadenectomy 03/05/2024. Presented with R groin/thigh pain.RLE US shows Heterogeneous, ill-defined fluid collection in the right groin measures 7.0 x 1.8 x 3.4 cm. Contact Number: [phone] HPI: Melodie Medrano Jr. is a 58 y.o. male with past medical history of HTN, DM, penile cancer S/Pbilateral inguinofemoral lymphadenectomy with concerns for right groin fluid collection, pain. He had a CT completed and subsequent US today. Initially his right ROSA MARIA drain was not completely functional and was subsequently resutured. Drain output since yesterday (drain #1 320 mL, drain #2 220 mL). Pertinent Interventional Radiology History: None Imaging Information: US 03/18/24 Heterogeneous, ill-defined fluid collection in the right groin measures 7.0 x 1.8 x 3.4 cm. Surrounding tissues are edematous. CT A/P 03/16/24 reviewed in the record. Pertinent Labs: Lab Results Component Value Date/Time INR 1.1 03/06/2024 12:35 AM PLATELET 183 03/18/2024 12:06 AM HGB 11.2 (L) 03/18/2024 12:06 AM GFR >90 03/18/2024 12:06 AM GFR 88 01/31/2024 10:28 AM Diet: DIET NPO with meds Code Status: Full Code test: N/A No Known Allergies Contrast Allergy: No Past Medical History: Diagnosis Date Diabetes mellitus Essential hypertension, benign Hyperlipidemia Melanoma left rib cage Penile ca Pulmonary embolism Past Surgical History: Procedure Laterality Date LYMPHADENECTOMY INGUINOFEMORAL ROBOTIC Bilateral 03/05/2024 Laterality: Bilateral; Surgeon: Izaiah Maurer MD; Location: [facility] MAIN OR AMPUTATION PENIS PARTIAL N/A 01/22/2024 Laterality: N/A; Surgeon: Izaiah Maurer MD; Location: [facility] PERIOP ACL RECONSTRUCTION BACK SURGERY FOOT SURGERY Bilateral reconstructive OTHER SURGICAL Right undescended testicle VASECTOMY Social History Tobacco Use Smoking status: Former Types: Cigarettes Smokeless tobacco: Former Types: Chew Substance Use Topics Alcohol use: Yes Alcohol/week: 4.0 standard drinks of alcohol Types: 4 Shots of liquor per week Drug use: Never Family History Family History Problem Relation Age of Onset Aneurysm Father Cancer- Other Father melanoma Lung Cancer Maternal Grandmother Current Medications: amLODIPine 5 mg Oral Daily Docusate 100 mg Oral BID Insulin lispro Subcutaneous TID AC lidocaine 2 patch Transdermal Q24H lisinopril 30 mg Oral Daily Metoprolol succinate 50 mg Oral Daily Polyethylene glycol 17 g Oral Daily [Held by provider] Rivaroxaban 20 mg Oral Every dinner Sulfamethoxazole-trimethoprim 1 tablet Oral Q12H Tamsulosin HCl 0.4 mg Oral Daily Acetaminophen, alum/mag hydrox.-simethicone, Insulin lispro AND BLOOD GLUCOSE (POC DEVICE) AND BLOOD GLUCOSE (POC DEVICE) AND COMMUNICATION ORDER FOR NURSING CARE: For Blood Glucose LESS THAN 80 mg/dl AND Dextrose AND glucose AND NOTIFY PHYSICIAN, Blood Glucose LESS THAN 80 mg/dl, Ibuprofen, Morphine (PF), ondansetron OR Ondansetron, oxyCODONE OR oxyCODONE, Sodium chloride 0.9% Lactated ringers 75 mL/hr at 03/18/24 0945 Vitals: Blood pressure 126/81, pulse 62, temperature 97.8 F (36.6 C), temperature source Oral, resp. rate 18, height 1.956 m (6' 5.01), weight 108.4 kg (239 lb), SpO2 96%. Laboratory Data: Lab Results Component Value Date/Time PT 13.9 03/06/2024 12:35 AM INR 1.1 03/06/2024 12:35 AM PTT 27.8 03/06/2024 12:35 AM Lab Results Component Value Date WBC 6.40 03/18/2024 HGB 11.2 (L) 03/18/2024 HCT 32.6 (L) 03/18/2024 PLATELET 183 03/18/2024 MCV 86.7 03/18/2024 Lab Results Component Value Date SODIUM 135 03/18/2024 POTASSIUM 3.9 03/18/2024 CHLORIDE 100 03/18/2024 CO2 25 03/18/2024 BUN 13 03/18/2024 CREATSERUM 0.88 03/18/2024 GLUCOSE 158 (H) 03/18/2024 Lab Results Component Value Date/Time GFR >90 03/18/2024 12:06 AM GFR 88 01/31/2024 10:28 AM IMPRESSION AND RECOMMENDATIONS Melodie Medrano Jr. is a 58 y.o. male with past medical history of HTN, DM, penile cancer S/P bilateral inguinofemoral lymphadenectomy with concerns for right groin fluid collection, pain. He had a CT completed and subsequent US today. Initially his right ROSA MARIA drain was not completely functional andwas subsequently resutured. Drain output since yesterday (drain #1 320 mL, drain #2 220 mL). Imaging reviewed (US 03/[address] 03/16) and since right ROSA MARIA drain was repositioned with good drain output since CT was completed, recommend repeating CT as US shows an ill-defined fluid collection. Once CT is completed, will provide final IR recommendations. Please notify IR if the situation changes. Consult and pertinent imaging were reviewed with the above procedure approved by Dr. Cruz. BIANCA Mustafa; 03/18/2024, 11:55 AM Updated Joann Pereira APRN, CNP on consult recommendations at 1130. [facility] Work Phone: 1(347) 239-632309-04-2024 Consult note* BIANCA Mustafa - 03/18/2024 11:55 AM EDT Images from the original note were not included. INTERVENTIONAL RADIOLOGY CONSULT NOTE PATIENT: Melodie Medrano Jr. Admission Date: 03/16/2024 Requesting Provider/Service: Izaiah Maurer MD Reason for Consult: Hx BL robotic assisted inguinofemoral lymphadenectomy 03/05/2024. Presented with R groin/thigh pain.RLE US shows Heterogeneous, ill-defined fluid collection in the right groin measures 7.0 x 1.8 x 3.4 cm. Contact Number: [phone] HPI: Melodie Medrano Jr. is a 58 y.o. male with past medical history of HTN, DM, penile cancer S/Pbilateral inguinofemoral lymphadenectomy with concerns for right groin fluid collection, pain. He had a CT completed and subsequent US today. Initially his right ROSA MARIA drain was not completely functional and was subsequently resutured. Drain output since yesterday (drain #1 320 mL, drain #2 220 mL). Pertinent Interventional Radiology History: None Imaging Information: US 03/18/24 Heterogeneous, ill-defined fluid collection in the right groin measures 7.0 x 1.8 x 3.4 cm. Surrounding tissues are edematous. CT A/P 03/16/24 reviewed in the record. Pertinent Labs: Lab Results Component Value Date/Time INR 1.1 03/06/2024 12:35 AM PLATELET 183 03/18/2024 12:06 AM HGB 11.2 (L) 03/18/2024 12:06 AM GFR >90 03/18/2024 12:06 AM GFR 88 01/31/2024 10:28 AM Diet: DIET NPO with meds Code Status: Full Code test: N/A No Known Allergies Contrast Allergy: No Past Medical History: Diagnosis Date Diabetes mellitus Essential hypertension, benign Hyperlipidemia Melanoma left rib cage Penile ca Pulmonary embolism Past Surgical History: Procedure Laterality Date LYMPHADENECTOMY INGUINOFEMORAL ROBOTIC Bilateral 03/05/2024 Laterality: Bilateral; Surgeon: Izaiah Maurer MD; [facility] AMPUTATION PENIS PARTIAL N/A 01/22/2024 Laterality: N/A; Surgeon: Izaiah Maurer MD; [facility] O[facility] PERIOP ACL RECONSTRUCTION BACK SURGERY FOOT SURGERY Bilateral reconstructive OTHER SURGICAL Right undescended testicle VASECTOMY Social History Tobacco Use Smoking status: Former Types: Cigarettes Smokeless tobacco: Former Types: Chew Substance Use Topics Alcohol use: Yes Alcohol/week: 4.0 standard drinks of alcohol Types: 4 Shots of liquor per week Drug use: Never Family History Family History Problem Relation Age of Onset Aneurysm Father Cancer- Other Father melanoma Lung Cancer Maternal Grandmother Current Medications: amLODIPine 5 mg Oral Daily Docusate 100 mg Oral BID Insulin lispro Subcutaneous TID AC lidocaine 2 patch Transdermal Q24H lisinopril 30 mg Oral Daily Metoprolol succinate 50 mg Oral Daily Polyethylene glycol 17 g Oral Daily [Held by provider] Rivaroxaban 20 mg Oral Every dinner Sulfamethoxazole-trimethoprim 1 tablet Oral Q12H Tamsulosin HCl 0.4 mg Oral Daily Acetaminophen, alum/mag hydrox.-simethicone, Insulin lispro AND BLOOD GLUCOSE (POC DEVICE) AND BLOOD GLUCOSE (POC DEVICE) AND COMMUNICATION ORDER FOR NURSING CARE: For Blood Glucose LESS THAN 80 mg/dl AND Dextrose AND glucose AND NOTIFY PHYSICIAN, Blood Glucose LESS THAN 80 mg/dl, Ibuprofen, Morphine (PF), ondansetron OR Ondansetron, oxyCODONE OR oxyCODONE, Sodium chloride 0.9% Lactated ringers 75 mL/hr at 03/18/24 0945 Vitals: Blood pressure 126/81, pulse 62, temperature 97.8 F (36.6 C), temperature source Oral, resp. rate 18, height 1.956 m (6' 5.01), weight 108.4 kg (239 lb), SpO2 96%. Laboratory Data: Lab Results Component Value Date/Time PT 13.9 03/06/2024 12:35 AM INR 1.1 03/06/2024 12:35 AM PTT 27.8 03/06/2024 12:35 AM Lab Results Component Value Date WBC 6.40 03/18/2024 HGB 11.2 (L) 03/18/2024 HCT 32.6 (L) 03/18/2024 PLATELET 183 03/18/2024 MCV 86.7 03/18/2024 Lab Results Component Value Date SODIUM 135 03/18/2024 POTASSIUM 3.9 03/18/2024 CHLORIDE 100 03/18/2024 CO2 25 03/18/2024 BUN 13 03/18/2024 CREATSERUM 0.88 03/18/2024 GLUCOSE 158 (H) 03/18/2024 Lab Results Component Value Date/Time GFR >90 03/18/2024 12:06 AM GFR 88 01/31/2024 10:28 AM IMPRESSION AND RECOMMENDATIONS Melodie Medrano Jr. is a 58 y.o. male with past medical history of HTN, DM, penile cancer S/P bilateral inguinofemoral lymphadenectomy with concerns for right groin fluid collection, pain. He had a CT completed and subsequent US today. Initially his right ROSA MARIA drain was not completely functional andwas subsequently resutured. Drain output since yesterday (drain #1 320 mL, drain #2 220 mL). Imaging reviewed (US 03/[address] 03/16) and since right ROSA MARIA drain was repositioned with good drain output since CT was completed, recommend repeating CT as US shows an ill-defined fluid collection. Once CT is completed, will provide final IR recommendations. Please notify IR if the situation changes. Consult and pertinent imaging were reviewed with the above procedure approved by Dr. Cruz. Kaycee Salazar APRN-MIXER ATTENDANT; 03/18/2024, 11:55 AM Updated Joann Pereira APRN, CNP on consult recommendations at 1130. * Oleg Arias DO - 03/18/2024 8:40 AM EDTAssociated Order(s): IP CONSULT TO INTERVENTIONAL RADIOLOGY Interventional Radiology [facility] lead teller [id number] - [facility] lead teller [id number] Admission Date: 03/16/2024 Reason for Consult: Hx BL robotic assisted inguinofemoral lymphadenectomy 03/05/2024. Presented with R groin/thigh pain.RLE US shows Heterogeneous, ill-defined fluid collection in the right groin measures 7.0 x 1.8 x 3.4 cm. HPI and Imaging Findings: Melodie Medrano Jr. is a 58 y.o. 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 He was taken to the OR on 03/05/24 for BL robotic assisted inguinofemoral lymphadenectomy with Dr. Maurer on 03/05/24. He discharged on 03/06/24. Presentedto ED 03/16/2024 for one day history of right groin / thigh pain. CT AP with notable amounts of gas in scrotum and groin however consistent with previous robotic surgery. VIR consulted for aspiration +/- drain placement. Imaging shows Heterogeneous, ill-defined fluid collection in the right groin measures 7.0 x 1.8 x 3.4 cm. Surrounding tissues are edematous. Most recent imaging on 03/18 demonstrates 1. Post partial penectomy and bilateral inguinofemoral lymph node dissection. Stable to increased size of bilateral inguinal collections from recent CT dated March 16, 2024. Air pockets along the soft tissues and scrotum have slightly decreased from prior exam. 2. Other ancillary findings as described above. Past Medical History: Diagnosis Date Diabetes mellitus Essential hypertension, benign Hyperlipidemia Melanoma left rib cage Penile ca Pulmonary embolism No Known Allergies Contrast Allergy: None Sedation Anticipated: Moderate Anticoagulation: If any, will need to be held per guidelines. Pertinent Labs/Data: Lab Results Component Value Date/Time HGB 11.2 (L) 03/18/2024 12:06 AM PLATELET 183 03/18/2024 12:06 AM INR 1.1 03/06/2024 12:35 AM SODIUM 135 03/18/2024 12:06 AM POTASSIUM 3.9 03/18/2024 12:06 AM GFR >90 03/18/2024 12:06 AM GFR 88 01/31/2024 10:28 AM Impression/Plan: Consult received. Case and imaging reviewed with VIR attending Dr. Escalante. Will plan for image guided aspiration +/- drain placement (Right Groin Collection); NPO prior to the procedure Consult was for: Heterogeneous, ill-defined fluid collection in the right groin measures 7.0 x 1.8 x 3.4 cm. Hb >7, INR <1.5, and platelets >50. Please keep IR updated should the patient's clinical status change. Questions related to timing of procedure(s) should be directed to the IR charge nurse. Oleg Arias DO 03/18/2024 8:41 AM Important Notes *Procedures are performed with either moderate sedation or anesthesia services. Both require the patient to be NPO (which includes tube feeds). *Patients will need to lie flat comfortably for the duration of the procedure. *Please be aware that patients requiring anesthesia services will require additional coordination which may increase the time from consult to procedure. [facility]* Stephkiel Arias, DO - 03/18/2024 8:40 AM EDTAssociated Order(s): IP CONSULT TO INTERVENTIONAL RADIOLOGY Interventional Radiology Consult Note [facility] lead teller [id number] - [facility] lead teller [id number] Admission Date: 03/16/2024 Reason for Consult: Hx BL robotic assisted inguinofemoral lymphadenectomy 03/05/2024. Presented with R groin/thigh pain.RLE US shows Heterogeneous, ill-defined fluid collection in the right groin measures 7.0 x 1.8 x 3.4 cm. HPI and Imaging Findings: Melodie Hernandez Mitchell Luther is a 58 y.o. 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 He was taken to the OR on 03/05/24 for BL robotic assisted inguinofemoral lymphadenectomy with Dr. Maurer on 03/05/24. He discharged on 03/06/24. Presentedto ED 03/16/2024 for one day history of right groin / thigh pain. CT AP with notable amounts of gas in scrotum and groin however consistent with previous robotic surgery. VIR consulted for aspiration +/- drain placement. Imaging shows Heterogeneous, ill-defined fluid collection in the right groin measures 7.0 x 1.8 x 3.4 cm. Surrounding tissues are edematous. Most recent imaging on 03/18 demonstrates 1. Post partial penectomy and bilateral inguinofemoral lymph node dissection. Stable to increased size of bilateral inguinal collections from recent CT dated March 16, 2024. Air pockets along the soft tissues and scrotum have slightly decreased from prior exam. 2. Other ancillary findings as described above. Past Medical History: Diagnosis Date Diabetes mellitus Essential hypertension, benign Hyperlipidemia Melanoma left rib cage Penile ca Pulmonary embolism No Known Allergies Contrast Allergy: None Sedation Anticipated: Moderate Anticoagulation: If any, will need to be held per guidelines. Pertinent Labs/Data: Lab Results Component Value Date/Time HGB 11.2 (L) 03/18/2024 12:06 AM PLATELET 183 03/18/2024 12:06 AM INR 1.1 03/06/2024 12:35 AM SODIUM 135 03/18/2024 12:06 AM POTASSIUM 3.9 03/18/2024 12:06 AM GFR >90 03/18/2024 12:06 AM GFR 88 01/31/2024 10:28 AM Impression/Plan: Consult received. Case and imaging reviewed with VIR attending Dr. Escalante. Will plan for image guided aspiration +/- drain placement (Right Groin Collection); NPO prior to the procedure Consult was for: Heterogeneous, ill-defined fluid collection in the right groin measures 7.0 x 1.8 x 3.4 cm. Hb >7, INR <1.5, and platelets >50. Please keep IR updated should the patient's clinical status change. Questions related to timing of procedure(s) should be directed to the IR charge nurse. Oleg Arias DO 03/18/2024 8:41 AM Important Notes *Procedures are performed with either moderate sedation or anesthesia services. Both require the patient to be NPO (which includes tube feeds). *Patients will need to lie flat comfortably for the duration of the procedure. *Please be aware that patients requiring anesthesia services will require additional coordination which may increase the time from consult to procedure. [facility] Work Phone: 1(735) 971-785709-03-2024 Hospital Discharge instructions* Discharge Instructions* Deborah Neves RN - 03/17/2024 1:55 PM EDT Images from the original note were not included. IMPORTANT: Automated Post Discharge Call Patient Information As part of your care, we will call you at the primary number we have on file, the day after you aredischarged at 9:30 a.m. to check on you. Please expect a two-minute automated telephone call from the hospital. This call will come from [phone]. If you are unable to answer or do not receive the automated call, please call [phone] to complete this important evaluation. By answering the phone evaluation, a [facility] nurse will be notified if you have any questions or concerns and call you back. If you have an immediate medical need call your doctor s office, or if you have a medical emergencycall 911. Your Crew Leader/Control Room Operator (PCRM) has arranged your appointments for follow up based on your preference of where you would like to continue your care. If you are unable to attend appointments that have been arranged for you, it is your responsibilityto call to reschedule at least 48 hours prior to the appointment date. Your After Visit Summary (AVS) has provided you with instructions for your discharge. It is your responsibility to ask questions if you have any. Please contact your medical care team at the numbers listed if you should have any additional questions. CONTACTS: EVENING/WEEKEND CONTACT For evening and weekend hours if you have urgent problems: Please call the office to speak with the after hours nurse, if no response, please call and ask the gridcap machine operator to page the Urology resident director medical economics. EMERGENCY For an emergency, call 911 DR MAURER'S OFFICE Hours: Saturday - Saturday 8:00am - 4:30 pm ADDITIONAL CONTACTS: If you have any questions about your discharge plan Saturday-Saturday between the hours of 7:30 am- 4:00 pm, please call : Deborah Rowley [phone] ADDITIONAL RESOURCES: For more information about your cancer diagnosis, treatment, and support, many resources are available: [email or web address] - THE [facility] INFORMATION: Call to request information or check hours. - [facility]: [facility]: or , or WWW.[facility]. LU[facility]'S UNIVERSITY HEALTH NETWORKYi Fang Education. Additional resources in [facility] include the following: -THE [employer]: [facility] . -THE [facility] COMMUNITY: National Resources: -[employer] CANC[employer]IET[employer] (ACS), WWW.CANCER.ORG [place] toll free #: 3-709-UQZ-2345 [place] toll free #: 0-055-THA-[place]. -NATIONAL COMPREHENSIVE CANCER NETWORK (NCCN) Ph: 395-120-HPRK Internet: WWW.NCCN.ORG - [facility] (NCI) Ph: 875-7-MWNZNV Internet: WWW.NCI.GOV. [facility] ([facility]): [phone]. Can help with medical supplies, equipment, food, medication assistance, transportation, wigs. [facility] only. [facility] On [facility] (formerly [facility], [facility]): [phone]. Database of resources in [facility] that is not specific to people with cancer diagnosis. Can help with food, shelters, utility assistance,transportation, mental health. Rx for [place]: 2-795-Cz-4-[place] or . Prescription assistance [employer] Programs [employer] offers a wide range of programs to support patients, families and caregivers during and after cancer. These include support groups, educational classes, expressive arts programs, workshops, and special events. These programs provide help with healing and recovery. For more information, or to sign up for a group or program, you can visit The [employer] website at [email or web address], email [facility] at [employer] [email or web address] or call one of the following: [facility] Department: [phone] The [employer] Line: [phone] or [phone] (toll free) Educational Classes and Workshops - Classes cover topics important to those who have been affected by cancer. Survivors learn about common problems related to treatment and recovery. They also receive information about how to improve their health and well-being. Classes are taught by clinical experts and include information and activities to help survivors live well, through and beyond cancer. Exercise Programs - Exercise can help with the side effects caused by cancer and cancer treatments.These side effects may include changes in flexibility, muscle tone and strength, energy, range of motion, balance, pain management and edema. Exercise programs shared in these classes can be adjustedbased on your level of fitness. Music-Based Services - Music-based services use music to help patients relax, express their feelings and cope with their illness. Board Certified Music Therapists may use a number of musical activities when working with a patient. These may include singing, listening to music, writing songs, playing instruments and looking at song lyrics. Art-Based Services - Art making can be a powerful way to process feelings related to a cancer diagnosis. It can deepen insight, provide inspiration, reduce stress and improve well-being. Services areoffered by a Board Certified Art Therapist. Mind, Body, Spirit Programs - These programs give survivors a chance to explore meditation, guided imagery, mindfulness and stress reduction skills to help cope with cancer. Nutrition Programs - Experts share information on nutrition and the connection between diet and cancer. Diets rich in plant-based foods can help lower your risk for cancer and is important for healthy survivorship. Families, Teens and Children - These programs are for children, between 5-18 years old, who have a loved one with cancer. Programs cover a variety of topics and offer a supportive and safe setting where families, teens and children can learn about cancer, talk about the challenges of a cancer diagnosis and learn coping skills. Young Adult Cancer Survivors - These programs are for young adult cancer survivors between the agesof 18-39. Programs focus on building peer connections with other young adult cancer survivors and developing healthy lifestyle practices that aid wellness and coping. Special Programs for Cancer Survivors - Special programs and events are held throughout the year for patients and their families. Conferences and activities during survivor and caregiver months are some of the programs offered to help survivors learn how to have the best health possible over the log turner. Support Groups - [facility] offers many support groups for both patients and their families. The groups are led by clinical experts. The groups available are: Adult Grief Blood and Marrow Transplant Brain Tumors Breast Cancer Caregiver Support Group Gastrointestinal Cancers General Cancers Hematology Leukemia and Lymphoma Living with Advanced Cancer Lung Cancer Melanoma Oral, Head and Neck Cancer Prostate Cancer Sarcoma Thyroid Cancer Additional Support Programs You may also watch [facility] programs and events by visiting our video library at [email or web address]. December 17, 2019. The [facility] - [facility] and Melodie Leslie Research [employer]. This handout is for informational purposes only. Talk with your doctor or health care team if you have any questions about your care. For more health information, call the Patient and Family Resource Center at [phone] or visit [email or web address] Genitourinary () and Urology Support Group Saturday of every month 12:00p.m.-1:00p.m. Virtual This online group is open to individuals with renal, bladder, penile, urethral, and testicular and rare urology cancers. Group is available before, during and after treatment to share and connect with others who have similar health concerns. Facilitated by licensed professionals at [facility]. A one-time registration is required. To register, scan the QR code or visit [email or web address] Call [facility] Center[facility] Santiago at [phone] for more information. * Medications* Deborah Neves RN - 03/17/2024 1:53 PM EDT Images from the original note were not included. Learning About Safely Storing and Getting Rid of Opioid Pills and Patches Why are opioid pills and patches dangerous? Opioids are medicines used to relieve moderate to severe pain. They may be used for a short time for pain, such as after surgery. Or they may be used to relieve long-term pain. When your doctor prescribes an opioid, you're getting strong medicine. It's important to protect others from its risks. Opioid medicine can cause serious problems, and even , if it's misused. Children and pets are at high risk when an opioid is kept within their reach. Opioid skin patches, such as fentanyl, are the most dangerous. Even a used patch still has a high dose of medicine in it.Small children have been killed by opioid patches they've found in the trash at home. Opioids can also be abused or stolen. Be sure to store your medicine in a safe and secure place. When you are done using opioid medicine, get rid of it right away, and in the safest way you can. How do you safely store opioid pills and patches? It's important to store opioids safely so that they aren't used by the wrong person. Your pain medicine is only for you to take. If someone else takes your medicine, it can harm that person. You can safely store your medicine. Follow these tips. Store pills and patches up high and out of sight. Keep them away from children and pets. Return the container to the same place each time you take your medicine. Try locking your opioid medicine in a cabinet. Make sure the bottles are closed tightly. If they have a safety cap, make sure that it's locked. Tighten the cap until you hear a click or can't twist it anymore. Keep track of how many pills or patches you have left. You may want to keep track in a notebook. Let the people who live with you know about your medicine. Tell them that it is only for you to take. If guests have opioid medicine with them, ask them to keep it safe. How do you safely get rid of opioid pills and patches? If you have opioid pills or patches that you are not going to use, get rid of them right away. The U.S. Food and Drug Administration (FDA) recommends that you take your opioid pills and patches to a drop-off box or take-back program that is authorized by the U.S. Drug Enforcement Administration (ALEJANDRA). If you can't get to a ALEJANDRA-authorized site right away and your medicine doesn't have specific disposal information (such as flushing), you can dispose of them in your household trash using these steps. Take the medicine out of its container. Mix it with something that tastes bad, such as cat litter or coffee grounds. Place the mixture in a sealed plastic bag, and put the bag in your household trash. Only flush your medicine down the toilet if you can't get to a ALEJANDRA-approved site or if your medicine instructions state clearly to flush them. Go to www.fda.gov/Drugs/ResourcesForYou/Consumers/BuyingU singMedicineSafely/EnsuringSafeUseofMedicine/SafeDisposalofMedicines/ven471302.h tm to see a list ofmedicines that should be flushed. Take special care with used opioid patches. As soon as you peel a patch off of your skin, fold it in half with the sticky sides together. Immediately take it to a ALEJANDRA-authorized site or flush it downthe toilet if a ALEJANDRA-authorized site isn't available in your area. Do not throw them in the trash. Where can you go to learn more? To learn how and where to get rid of unused medicines in your area, ask your doctor or pharmacist for help. Your local trash and recycle center may have a drop-off site. You can also look online at the ALEJANDRA's Diversion Control Division website (deadiversion.usdoj.gov) to find a disposal site near you. Or you can visit fda.gov and search for unused medicine disposal. Follow-up care is a cannon part of your treatment and safety. Be sure to make and go to all appointments, and call your doctor if you are having problems. It's also a good idea to know your test resultsand keep a list of the medicines you take. Where can you learn more? Go to http://[email or web address]/patiented. Enter N709 in the search box to learn more about 'Learning About Safely Storing and Getting Rid of Opioid Pills and Patches.' Interested in seeing a video go to [email or web address] to see all video content. Current as of: October 09, 2018 Content Version: 12.2 [employer]. Care instructions adapted under license by your healthcare professional. If you have questions about a medical condition or this instruction, always ask your healthcare professional. [employer] disclaims any warranty or liability for your use of this information. * Discharge Instr - Activity* Deborah Neves RN - 03/17/2024 1:53 PM EDT ACTIVITY -No lifting, pushing, or pulling over 10 lbs for 5 weeks -No driving for 1 week AND you are no longer taking narcotic pain medication. -Do not take tub bath, go swimming or use a hot tub until approved by your surgeon. * Discharge Instr - Diet* Deborah Neves RN - 03/17/2024 1:54 PM EDT Controlled Carbohydrate Diet This diet controls carbohydrate intake to help manage and maintain consistent blood glucose levels.Simple sugars are limited and carbohydrate intake is balanced throughout the day. Avoid adding saltto your food and use heart healthy fats such as canola or olive oil. * Discharge Instr - Notify* Deborah Neves RN - 03/17/2024 1:54 PM EDT NOTIFY PHYSICIAN: FEVER/CHILLS/FLU - Temperature greater than 100.4 degrees F and/or chills. - Signs of cold or flu. NAUSEA & VOMITING - Persistent nausea and vomiting - Inability to keep medication down - Inability to keep fluids down SYMPTOMS OF WOUND INFECTION - Increase in pain in or around wound. - Change in the amount of drainage. - Change in the color of drainage. - Change in the odor of drainage. - Warmth in the tissues around the wound. - Red streaks on the skin near the wound. - Fever - Incision separates/opens up SYMPTOMS OF DVT ( Deep Vein Thrombus, or Blood Clot) -Any Tender, Swollen, Or Reddened Areas From Your Groin To Your Heels -Numbness Or Tingling In Groin Or Calf -The Skin On Your Leg Looks Pale Or Blue Or It Feels Cold To Touch -Numbness Or Tingling In Groin Or Calf -Any Shortness Of Breath -Chest Pain SYMPTOMS OF UTI ( Urinary Tract Infection) - Urine That Is Cloudy And/Or Has Foul Odor - Urge To Urinate More Often - Burning Sensation - Fever - Incontinence - Blood In Urine UNRELIEVED PAIN - Increased or unrelieved pain * Discharge Instr - Wound Care* Deborah Neves RN - 03/17/2024 1:54 PM EDT Images from the original note were not included. INCISION CARE - Please clean it daily with mild soap and water. - Keep it dry for the rest of the day. - You do not need to cover your incision. - Watch for increasing redness, pus-like discharge or separation of the incision. - Do not let the shower stream hit the incision directly. ADHESIVE CLOSURE - Covering your incision is a clear transparent skin closure. It will remain in place for 10 to 14 days and wear off naturally. You should remove your post- operative dressing the day after yousurgery. - Do not soak your incision or take a tub bath for 2 weeks. - No further care is required unless you have a problem. -There are no vangie or sutures to be removed. It is not uncommon to have a little bruising. - Do not put any ointments on your incision unless instructed by your physician. ROSA MARIA Drain: Apply Dry Dressing Daily: Wash your hands well with soap and water before and after doing your dressing change. Follow your instructions and change the dressing around your tube each day or as needed to keep it dry. ROSA MARIA Drain Care: Empty, measure and record the amount of drainage twice daily, or more often, if needed. Call if drainage becomes foul-smelling. If you have two drains, chela drainage amounts for drain A and drain B. Change drainage tube dressing each day and anytime it is wet. Clean around the tube exit site as instructed, and apply a clean dressing. Gently squeeze drain tubing(s) starting near where it enters your skin and moving down the length of the tubing toward the drain collection device twice daily to keep clots loosened. Call if leakage of fluid persists from drainage tube exit site(s), and if you are not able to clearthe clots down tube. Call if drain will not hold suction. Wear an old belt into the shower and pin your drain container to it. Follow these steps to empty the ROSA MARIA drain: Wash your hands with soap and water. Dry your hands and put on clean gloves. Place a waterproof pad or towel under the ROSA MARIA drain to soak up any spills. Place the bulb lower thanthe wound to prevent fluid from going back into your body. Check the bulb for any holes or cracks. Remove the plug at one side of the bulb and pour the fluid into a measuring container. Do not touch the tip of the spout with the mouth of the collection cup or anything else. This keepsgerms from getting inside the bulb and tubing. Clean the plug with a cotton ball dipped in alcohol,or an alcohol swab. Squeeze the bulb tightly while the plug is still off. Do not squeeze the bulb if the plug is in place. While the bulb is being squeezed, put the plug back to seal the bulb. If you cannot squeeze it and plug it at the same time, ask someone for help. You may also place the bulb on a hard surface, such as a table. Use your elbow or hand to press down hard on the bulb, and then stick the plug in it. Measure the amount of fluid that came out of the ROSA MARIA drain bulb. Write down the amount, color, and odor of the fluid, and the date and time that you collected it. Use a piece of paper, a notebook, or ROSA MARIA drainage chart to keep track of this information. Flush the fluid down the toilet. Throw all used supplies in the trash bag along with your gloves. Wash your hands after you are finished Please record your drain output below and take to your follow-up appointments. Date Drain # Drain# Comments AM PM AM PM ml Color: ml Color: ml Color: ml Color: ml Color: ml Color: ml Color: ml Color: ml Color: ml Color: ml Color: ml Color: ml Color: ml Color: ml Color: ml Color: ml Color: ml Color: ml Color: ml Color: ml Color: ml Color: ml Color: ml Color: ml Color: ml Color: ml Color: ml Color: ml Color: ml Color: ml Color: ml Color: ml Color: ml Color: ml Color: ml Color: ml Color: ml Color: ml Color: ml Color: ml Color: ml Color: ml Color: ml Color: ml Color: ml Color: ml Color: ml Color: ml Color: ml Color: ml Color: ml Color: ml Color: ml Color: ml Color: ml Color: ml Color: ml Color: ml Color: ml Color: Please record your drain output below and take to your follow-up appointments. Date Drain # Drain# Comments AM PM AM PM ml Color: ml Color: ml Color: ml Color: ml Color: ml Color: ml Color: ml Color: ml Color: ml Color: ml Color: ml Color: ml Color: ml Color: ml Color: ml Color: ml Color: ml Color: ml Color: ml Color: ml Color: ml Color: ml Color: ml Color: ml Color: ml Color: ml Color: ml Color: ml Color: ml Color: ml Color: ml Color: ml Color: ml Color: ml Color: ml Color: ml Color: ml Color: ml Color: ml Color: ml Color: ml Color: ml Color: ml Color: ml Color: ml Color: ml Color: ml Color: ml Color: ml Color: ml Color: ml Color: ml Color: ml Color: ml Color: ml Color: ml Color: ml Color: ml Color: ml Color: Please record your drain output below and take to your follow-up appointments. Date Drain # Drain# Comments AM PM AM PM ml Color: ml Color: ml Color: ml Color: ml Color: ml Color: ml Color: ml Color: ml Color: ml Color: ml Color: ml Color: ml Color: ml Color: ml Color: ml Color: ml Color: ml Color: ml Color: ml Color: ml Color: ml Color: ml Color: ml Color: ml Color: ml Color: ml Color: ml Color: ml Color: ml Color: ml Color: ml Color: ml Color: ml Color: ml Color: ml Color: ml Color: ml Color: ml Color: ml Color: ml Color: ml Color: ml Color: ml Color: ml Color: ml Color: ml Color: ml Color: ml Color: ml Color: ml Color: ml Color: ml Color: ml Color: ml Color: ml Color: ml Color: ml Color: ml Color: ml Color: Please record your drain output below and take to your follow-up appointments. Date Drain # Drain# Comments AM PM AM PM ml Color: ml Color: ml Color: ml Color: ml Color: ml Color: ml Color: ml Color: ml Color: ml Color: ml Color: ml Color: ml Color: ml Color: ml Color: ml Color: ml Color: ml Color: ml Color: ml Color: ml Color: ml Color: ml Color: ml Color: ml Color: ml Color: ml Color: ml Color: ml Color: ml Color: ml Color: ml Color: ml Color: ml Color: ml Color: ml Color: ml Color: ml Color: ml Color: ml Color: ml Color: ml Color: ml Color: ml Color: ml Color: ml Color: ml Color: ml Color: ml Color: ml Color: ml Color: ml Color: ml Color: ml Color: ml Color: ml Color: ml Color: ml Color: ml Color: ml Color: FLUID COLLECTION DRAIN: Located in: xxx Care of the fluid collection drain: Record the amount of drainage daily. Please notify the Interventional Radiology office when the amount of drainage is less than 15 ml in a 24 hour period. The drain site can be cleaned with liquid antibacterial soap and water. Change the dressing every other day at a minimum.. Follow up information regarding your fluid collection drain: You had a fluid collection drain placed during this hospital stay. If the drain is still in place at the time of discharge, please review the instructions below. Please contact Interventional Radiology Weekdays at [phone] with any questions or concerns youmay have regarding the fluid collection drain. Should you need to contact Interventional Radiology in the evening or on a weekend, please call [phone] and ask the gridcap machine operator to page the Interventional physician vice president director medical economics. Please record your drain output below and take to your follow-up appointments. Date Drain # Drain# Comments AM PM AM PM ml Color: ml Color: ml Color: ml Color: ml Color: ml Color: ml Color: ml Color: ml Color: ml Color: ml Color: ml Color: ml Color: ml Color: ml Color: ml Color: ml Color: ml Color: ml Color: ml Color: ml Color: ml Color: ml Color: ml Color: ml Color: ml Color: ml Color: ml Color: ml Color: ml Color: ml Color: ml Color: ml Color: ml Color: ml Color: ml Color: ml Color: ml Color: ml Color: ml Color: ml Color: ml Color: ml Color: ml Color: ml Color: ml Color: ml Color: ml Color: ml Color: ml Color: ml Color: ml Color: ml Color: ml Color: ml Color: ml Color: ml Color: ml Color: ml Color: ml Color: Please record your drain output below and take to your follow-up appointments. Date Drain # Drain# Comments AM PM AM PM ml Color: ml Color: ml Color: ml Color: ml Color: ml Color: ml Color: ml Color: ml Color: ml Color: ml Color: ml Color: ml Color: ml Color: ml Color: ml Color: ml Color: ml Color: ml Color: ml Color: ml Color: ml Color: ml Color: ml Color: ml Color: ml Color: ml Color: ml Color: ml Color: ml Color: ml Color: ml Color: ml Color: ml Color: ml Color: ml Color: ml Color: ml Color: ml Color: ml Color: ml Color: ml Color: ml Color: ml Color: ml Color: ml Color: ml Color: ml Color: ml Color: ml Color: ml Color: ml Color: ml Color: ml Color: ml Color: ml Color: ml Color: ml Color: ml Color: ml Color: Please record your drain output below and take to your follow-up appointments. Date Drain # Drain# Comments AM PM AM PM ml Color: ml Color: ml Color: ml Color: ml Color: ml Color: ml Color: ml Color: ml Color: ml Color: ml Color: ml Color: ml Color: ml Color: ml Color: ml Color: ml Color: ml Color: ml Color: ml Color: ml Color: ml Color: ml Color: ml Color: ml Color: ml Color: ml Color: ml Color: ml Color: ml Color: ml Color: ml Color: ml Color: ml Color: ml Color: ml Color: ml Color: ml Color: ml Color: ml Color: ml Color: ml Color: ml Color: ml Color: ml Color: ml Color: ml Color: ml Color: ml Color: ml Color: ml Color: ml Color: ml Color: ml Color: ml Color: ml Color: ml Color: ml Color: ml Color: ml Color: Please record your drain output below and take to your follow-up appointments. Date Drain # Drain# Comments AM PM AM PM ml Color: ml Color: ml Color: ml Color: ml Color: ml Color: ml Color: ml Color: ml Color: ml Color: ml Color: ml Color: ml Color: ml Color: ml Color: ml Color: ml Color: ml Color: ml Color: ml Color: ml Color: ml Color: ml Color: ml Color: ml Color: ml Color: ml Color: ml Color: ml Color: ml Color: ml Color: ml Color: ml Color: ml Color: ml Color: ml Color: ml Color: ml Color: ml Color: ml Color: ml Color: ml Color: ml Color: ml Color: ml Color: ml Color: ml Color: ml Color: ml Color: ml Color: ml Color: ml Color: ml Color: ml Color: ml Color: ml Color: ml Color: ml Color: ml Color: ml Color: * Discharge Instr - DME* Deborah Neves RN - 03/17/2024 1:55 PM EDT Compression Device/TEDS Wear your YVETTE stockings as instructed to prevent blood clots and help your circulation. * Attachments The following attachments cannot be sent through Care Everywhere. * Compression Stockings: General Info (Tanzanian) documented in this [facility]09-03-2024 Plan of care note* Plan of Care - Gayle Obrien RN - 03/17/2024 1:19 PM EDT Patient's ROSA MARIA cultures were sent. His ROSA MARIA output 0800 ROSA MARIA drain 1 - 50 ROSA MARIA drain 2 - 50 1100 ROSA MARIA drain 1 - 30 ROSA MARIA drain 2 - 10 Patient is tolerating his diet well with no complains of nausea. Paged team about pain not being controlled with oxy 10. PRN IV medications added Problem: Adult Inpatient Plan of Care Goal: Plan of Care Review Outcome: Progressing Goal: Patient-Specific Goal (Individualized) Outcome: Progressing Goal: Absence of Hospital-Acquired Illness or Injury Outcome: Progressing Goal: Optimal Comfort and Wellbeing Outcome: Progressing Goal: Readiness for Transition of Care Outcome: Progressing [facility]09-03-2024 Nurse Note* Nursing Notes - Deborah Neves RN - 03/17/2024 10:32 AM EDT Initial Assessment Referral Information Arrived From: emergency department Readmission Information Was patient readmitted within 30 Days?: No Information Source Information Source: patient , review of medical record Information Source Name: Melodie Medrano Information Source Number: see demographics. Outpatient Providers Outpatient Providers Updated In IHIS: Yes Contact Information Crew Leader/Control Room Operator/SW Added to Care Team: Yes This Telehealth Case Manager is Primary Crew Leader/Control Room Operator/SW: Yes Crew Leader/Control Room Operator Name: Deborah Rowley Crew Leader/Control Room Operator's Phone Number: [phone] Social Work Contact Name: see care team Mercerizing Range Feeder's Phone Number: see care team Living Environment Lives With: spouse Living Arrangement and Set Up: house Provides Primary Care For: no one Caregiving Concerns: denies concerns. Primary Care Provided By: self, spouse/significant other Support System: Immediate family Able to Return to Prior Arrangements: yes Functional Status Patient's Functional Status Prior To This Admission?: Independent Are There Status Changes This Admission?: No Changes Observed Since Admission?: No Changes Observed Concerns With Patient Being Able To Care For Themselves At Discharge? : Has Assistance (Friend, Family, Skilled Provider) Who Is Patient's Primary Contact For Discharge Planning, Education And Care For Discharge?: Spouse-Mendoza Can Support Person Meet The Care Needs Of The Patient?: Yes Employment/Financial Employed?: Yes Employment Details: employed Employment/Financial Concerns: no Employment/Financial Comments: NA Source Of Income: salary/wages Financial Concerns: none Insurance Medical Insurance Verified: Yes Prescription Coverage: Yes Pharmacy updated in IHIS: Yes Initial Discharge Planning Home Care Services (RAGMAN): No Home Therapies (RAGMAN): None DME (RAGMAN): Other (comment), Glucometer (yvette ferreira) Medical Supplies (RAGMAN): Glucose testing strips Patient Goal for Discharge: Return home with assistance from family and friends Expected Discharge Disposition: Home Anticipated Services at Discharge: Wound/drain Anticipated Changes Related to Illness: inability to work Current Discharge Risk: other (see comments) Transportation Available: car, family or friend will provide Discharge Coordination/Progress: see demographics Assessment/Concerns to be Addressed Concerns To Be Addressed: denies needs/concerns at this time Concerns Comments: see notes. Discharge Planning Referral Information Arrived From: emergency department Final Discharge Planning Discharge Disposition: (P) Home Services at Discharge: (P) Wound/drain/line/ostomy-supplies (healing surgical incisions/ ROSA MARIA drain x2) CM/SW AVS Portion Completed: (P) Yes (Retired/Read Only) Plan Plan: (P) Planning for discharge to home on 03/18/24 Patient/Family In Agreement With Plan: (P) yes Plan Comments: (P) see notes. PCRM Initial Assessment and Final Discharge Planning Note Met with the patient to complete the initial assessment and to discuss final discharge plan. The patient is getting ready to leave for duplex studies. Explained role and function of PCRM in multidisciplinary team. Demographic information reviewed with patient and confirmed as correct. 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 He was taken to the OR on 03/05/24 for BL robotic assisted inguinofemoral lymphadenectomy with Dr. Maurer on 03/05/24. He discharged on 03/06/24. Presented to ED 03/16/2024 for one day history of right groin / thigh pain. CT AP with notable amounts of gas in scrotum and groin however consistent with previous robotic surgery. Discharge Plan of Care: Patient discussed in multidisciplinary rounds. Patient is medically ready for discharge tomorrow, pending pain control/medical stability. Services for Discharge: Discharging to home with family support when medically stable. The patient will discharge with ROSA MARIA drain x2 in place. He feels comfortable managing these drains at home. Advanced directives: Patient does not have Advanced Directives on File Consults with Final Discharge Recommendations NA Lines/Drains/Tubes/Wounds/Supplies for Discharge Healing surgical incisions (Dermabond) ROSA MARIA drain x [address] at discharge[address] YVETTE hose. Medications No barriers anticipated in obtaining discharge medications. No prior authorizations anticipated. Reconciliation of medications to be completed by the medical team. Awaiting final plan for AC. Durable Medical Equipment The patient states that he is independent a baseline. Choice Was Patient Choice Provided: N/A Transportation Transportation will be provided by family. Education Discharge education provided by the medical team and updated in the After Visit Summary. Follow Up(s) Any follow up requested by the medical team arranged. Appointments in the After Visit Summary. Future Appointments Date Time Provider Department Center 03/20/2024 2:15 PM MD ROE Kerr Awaiting confirmation of follow up appt. Was Ambulatory PCRM added to the Care Team? Yes- Handoff criteria met Was a handoff made to an Ambulatory PCRM? Yes Referral completed and sent to [facility], phone number [phone]. The PCRM or medical team will update the patient's nurse regarding the final discharge plan once plan is finalized. Risk of Readmission: 8.9 Category Reference: Low: 0% - 5% Medium - Low: 5.1% - 10% Medium - High: 10.1% - 16% High: 16.1% - 100% Readmission Risk Interventions Documented: Yes No other discharge needs have been identified at this time. This plan was developed in collaboration with the patient and caregiver/preferred decision maker and is in agreement with final discharge plan. Please refer to AVS and medical record for additional information. Patient instructed to call with questions. PCRM will continue to follow with medical team for any additional discharge planning needs. DEON Rojas, ACM-RN Patient Care Chef Teacher Pager# [phone] If any changes to this individualized plan of care during evening and weekend hours and assistance is needed, please page the director medical economics PCRM at [phone]. [facility]09-02-2024 Nurse Note* Nursing Notes - Zoya Crump RN - 03/16/2024 6:41 PM EDT On admission to [facility], from ED a dual RN initial assessment of skin condition was performed by Zoya Crump, RN and Grazyna Rodriguez RN. Skin Assessment: Generalized blanchable redness. Swelling near right groin site. 6 lap sites on bilateral thighs. JPdrains x 2. Moreno Score: 20 LDA Added:No [facility]09-02-2024 Nurse Note* Nursing Notes - Grazyna Cervantes RN - 03/16/2024 6:[address] Ramos [phone] [facility] room 11990 [facility] Emergency department Note* Tereso Andrews MD - 03/16/2024 12:16 PM EDT Mid Level for Shared Visits BP 123/77 Pulse 80 Temp 97.2 F (36.2 C) (Skin) Resp 18 SpO2 98% Smoking Status Former Pertinent Hx: Melodie Medrano Jr. is a 58 y.o. male with Chief Complaint Patient presents with Groin Pain . The Patient has a past medical history of Diabetes mellitus, Essential hypertension, benign, Hyperlipidemia, Melanoma, Penile ca, and Pulmonary embolism. This patient presents with significant redness and pain in his groin extending into his right lowerextremity. He has a history of penile cancer. He has had recent lymph node dissection. Given this presentation, the differential diagnosis includes life/limb threatening disease(s), including but not limited to: Cellulitis, necrotizing infection Plan: Lab work CT scan urology consultation A review systems was obtained and is negative, other than those discussed in the above HPI, in the nursing notes, or in the MLP's note. Systems reviewed include Constitutional, eyes, ENT, Cardiovascular, Pulmonary, Gastrointestinal, neurological, genitourinary, musculoskeletal, skin On 03/16/2024 I saw and evaluated the patient with MARINA. I provided a substantive portion of the care for this patient. I personally performed all aspects of the medical decision making for this encounter. I have reviewed and verified this with the MARINA so that it accurately reflects our care. Medication list and nurses notes were reviewed. Medical Decision Making Amount and/or Complexity of Data Reviewed Labs: ordered. Radiology: ordered. Risk Prescription drug management. Tereso Andrews MD 03/16/24 1222 [facility] Work Phone: 1(559) 684-405209-02-2024 Emergency department Note* Tereso Andrews MD - 03/16/2024 12:16 PM EDT Mid Level for Shared Visits BP 123/77 Pulse 80 Temp 97.2 F (36.2 C) (Skin) Resp 18 SpO2 98% Smoking Status Former Pertinent Hx: Melodie Medrano Jr. is a 58 y.o. male with Chief Complaint Patient presents with Groin Pain . The Patient has a past medical history of Diabetes mellitus, Essential hypertension, benign, Hyperlipidemia, Melanoma, Penile ca, and Pulmonary embolism. This patient presents with significant redness and pain in his groin extending into his right lowerextremity. He has a history of penile cancer. He has had recent lymph node dissection. Given this presentation, the differential diagnosis includes life/limb threatening disease(s), including but not limited to: Cellulitis, necrotizing infection Plan: Lab work CT scan urology consultation A review systems was obtained and is negative, other than those discussed in the above HPI, in the nursing notes, or in the MLP's note. Systems reviewed include Constitutional, eyes, ENT, Cardiovascular, Pulmonary, Gastrointestinal, neurological, genitourinary, musculoskeletal, skin On 03/16/2024 I saw and evaluated the patient with MARINA. I provided a substantive portion of the care for this patient. I personally performed all aspects of the medical decision making for this encounter. I have reviewed and verified this with the MARINA so that it accurately reflects our care. Medication list and nurses notes were reviewed. Medical Decision Making Amount and/or Complexity of Data Reviewed Labs: ordered. Radiology: ordered. Risk Prescription drug management. Treeso Andrews MD 03/16/24 1222 * Minda Palmer PA-C - 03/16/2024 11:57 AM EDT EMERGENCY DEPARTMENT ENCOUNTER CHIEF COMPLAINT Groin Pain HPI Melodie Medrano Jr. is a 58 y.o. male with a past medical history of penile cancer s/p robotic bilateral inguinofemoral lymphadenectomy (03/05/24), DM, HTN, PE on Xarelto who presents to the Emergency Department for right groin pain History obtained from patient. Reports gradual development of right groin pain radiating to his right thigh beginning yesterday and acutely worsening overnight. States pain is worsened with palpationand weight-bearing with the right leg. Reports slightly decreased output from his right thigh drainsince yesterday as well. Some associated swelling. Symptoms somewhat feel like a DVT. Vomited x 1 this AM. He denies urinary changes or abdominal pain. No fevers or chills. No CP or SOB. Has taken Tylenol, Advil, and oxycodone with minimal improvement, though states at rest pain is manageable, primarily worsened with palpation and movement. Called Urology resident on-call who recommended ED evaluation due to severity of pain. REVIEW OF SYSTEMS Review of Systems Constitutional: Negative for chills, fever and malaise/fatigue. HENT: Negative for congestion and sore throat. Eyes: Negative for blurred vision, double vision and discharge. Respiratory: Negative for cough, shortness of breath and wheezing. Cardiovascular: Positive for leg swelling. Negative for chest pain and palpitations. Gastrointestinal: Positive for abdominal pain (right groin, denies abd pain) and vomiting. Negativefor blood in stool, constipation, diarrhea, melena and nausea. Genitourinary: Negative for dysuria and frequency. Musculoskeletal: Positive for myalgias (right groin/thigh). Negative for joint pain. Skin: Positive for rash (redness). Neurological: Negative for dizziness, focal weakness and headaches. Psychiatric/Behavioral: Negative for hallucinations and memory loss. PAST MEDICAL HISTORY Past Medical History: Diagnosis Date Diabetes mellitus Essential hypertension, benign Hyperlipidemia Melanoma left rib cage Penile ca Pulmonary embolism SURGICAL HISTORY Past Surgical History: Procedure Laterality Date LYMPHADENECTOMY INGUINOFEMORAL ROBOTIC Bilateral 03/05/2024 Laterality: Bilateral; Surgeon: Izaiah Maurer MD; [facility] AMPUTATION PENIS PARTIAL N/A 01/22/2024 Laterality: N/A; Surgeon: Izaiah Maurer MD; [facility] O[facility] PERIOP ACL RECONSTRUCTION BACK SURGERY FOOT SURGERY Bilateral reconstructive OTHER SURGICAL Right undescended testicle VASECTOMY MEDICATIONS Current Outpatient Medications Medication Sig Acetaminophen 325 MG tablet Take 2 tablets by mouth every 4 hours for 7 days. amLODIPine 5 MG tablet Take 1-2 tablets by mouth daily. Cholecalciferol (Vitamin D) 25 MCG (1000 UT) tablet Take 1 tablet by mouth daily. cyanocobalamin 100 MCG tablet Take 1 tablet by mouth daily. Elastic Bandages & Supports (Medical Compression Stockings) Misc 1 Each by Unknown route daily. Enoxaparin Sodium 40 MG/0.4ML injection Inject 0.4 mL under the skin daily. Please perform injections as you were taught by your nursing team prior to your discharge from the hospital. Please stop after you have spoken to Dr. Maurer's office when you restart Xarelto. lisinopril 30 MG tablet Take 1 tablet by mouth daily. metFORMIN-XR 500 MG Tab SR 24 HR Take 1 tablet by mouth 2 times daily. Metoprolol succinate 50 MG tablet XL Take 1 tablet by mouth daily. omega-3 acid ethyl esters 1 g capsule Take 2 capsules by mouth 2 times daily. oxyCODONE 5 MG tablet Take 1 tablet by mouth every 6 hours as needed for Moderate Pain or Severe Pain for up to 14 days. Polyethylene glycol 17 g Pack packet Take 1 packet by mouth daily. Rosuvastatin 10 MG tablet Take 1 tablet by mouth daily. Sulfamethoxazole-trimethoprim 800-160 MG per tablet Take 1 tablet by mouth 2 times daily for 14 days. Tamsulosin HCl 0.4 MG capsule Take 1 capsule by mouth daily. Turmeric (QC TUMERIC COMPLEX PO) Take by mouth. Xarelto 20 MG tablet HOLD this medication until you have your CBC results and spoken with your PCP. ALLERGIES No Known Allergies FAMILY HISTORY Family History Problem Relation Age of Onset Aneurysm Father Cancer- Other Father melanoma Lung Cancer Maternal Grandmother SOCIAL HISTORY Social History Socioeconomic History Marital status: Tobacco Use Smoking status: Former Types: Cigarettes Smokeless tobacco: Former Types: Chew Substance and Sexual Activity Alcohol use: Yes Alcohol/week: 4.0 standard drinks of alcohol Types: 4 Shots of liquor per week Drug use: Never PHYSICAL EXAM Vitals: 03/16/24 1119 BP: 123/77 Pulse: 80 Resp: 18 Temp: 97.2 degrees F (36.2 degrees C) TempSrc: Skin SpO2: 98% Physical Exam Vitals and nursing note reviewed. Constitutional: General: He is in acute distress (appears uncomfortable). HENT: Head: Normocephalic and atraumatic. Right Ear: External ear normal. Left Ear: External ear normal. Eyes: General: Right eye: No discharge. Left eye: No discharge. Conjunctiva/sclera: Conjunctivae normal. Cardiovascular: Rate and Rhythm: Normal rate and regular rhythm. Pulses: Normal pulses. Pulmonary: Effort: Pulmonary effort is normal. No respiratory distress. Breath sounds: Normal breath sounds. No wheezing or rhonchi. Abdominal: General: There is no distension. Palpations: Abdomen is soft. Tenderness: There is no abdominal tenderness. There is no guarding. Genitourinary: Comments: Erythema, edema and TTP to right inguinal region, erythema, warmth and mild induration extending inferiorly down R thigh. No crepitance. Decreased ROM R hip secondary to pain. Able to ambulate. Musculoskeletal: Cervical back: Normal range of motion and neck supple. No rigidity. Right lower leg: No edema. Left lower leg: No edema. Comments: BL lower extremities warm and well perfused with soft compartments Skin: General: Skin is warm and dry. Neurological: General: No focal deficit present. Mental Status: He is alert and oriented to person, place, and time. Psychiatric: Mood and Affect: Mood normal. Behavior: Behavior normal. ED COURSE & MEDICAL DECISION MAKING Melodie Medrano Jr. is a 58 y.o. male with a past medical history of penile cancer s/p robotic bilateral inguinofemoral lymphadenectomy (03/05/24), DM, HTN, PE on Xarelto who presents via pv from home to the Emergency Department for right groin pain Differential diagnosis includes, but is not limited to cellulitis, abscess, NSTI, DVT, dehydration,electrolyte derangement PLAN - CBC, Chem 7, Electrolytes, blood cultures, lactate, urine - RLE DVT US - CT A/P with extension to mid thigh - Pain control - IV ABX - Urology c/s Results for orders placed or performed during the hospital encounter of 03/16/24 [facility] 7 - ED Result Value Ref Range Sodium 132 (L) 135 - 145 mmol/L Potassium 4.3 3.5 - 5.0 mmol/L Chloride 100 98 - 108 mmol/L CO2 22 21 - 31 mmol/L Glucose 194 (H) 70 - 99 mg/dL BUN 15 7 - 25 mg/dL Creatinine 1.00 0.70 - 1.30 mg/dL Bun/Crea Ratio 15 Osmolality (Calculated) 285 278 - 305 mOsm/kg Anion Gap 14 7 - 17 mmol/L eGFR, CKD-EPI, Male 87 >=60 mL/min/1.73m2 CALCIUM Result Value Ref Range Calcium 9.1 8.6 - 10.5 mg/dL MAGNESIUM Result Value Ref Range Magnesium 1.5 (L) 1.6 - 2.6 mg/dL PHOSPHATE, INORGANIC Result Value Ref Range Phosphorous 3.7 2.2 - 4.6 mg/dL CBC AND ELECTRONIC DIFF Result Value Ref Range WBC Count 13.60 (H) 3.73 - 10.10 K/uL RBC Count 4.41 4.38 - 5.83 M/uL Hemoglobin 13.3 (L) 13.4 - 16.8 g/dL Hematocrit 38.6 (L) 39.6 - 48.8 % Mean Cell Volume 87.5 79.0 - 94.5 fL Mean Cell Hgb 30.2 26.1 - 33.3 pg Mean Cell Hgb Conc 34.5 31.9 - 36.5 g/dL RBC Distribution 13.4 10.9 - 14.3 % Platelet Count 228 146 - 337 K/uL Mean Platelet Volume 8.7 8.7 - 12.3 fL DIFF STATUS Electronic Differential Segs + Bands Auto 80.6 % Immature Grans % 0.3 % Lymphocyte % Auto 10.5 % Monocyte % Auto 7.8 % Eosinophil % Auto 0.4 % Basophil % Auto 0.4 % Nucleated RBC 0.0 <=0.2 /100 WBC Segs + Bands,Absolute Auto 10.95 (H) 1.57 - 6.19 K/uL Immature Grans Absolute 0.04 <=0.07 K/uL Abs Lymph Auto 1.43 0.83 - 3.57 K/uL Abs [place] Auto 1.06 (H) 0.24 - 0.93 K/uL Abs Eos Auto 0.06 0.00 - 0.48 K/uL Abs Baso Auto 0.06 0.00 - 0.09 K/uL LACTATE, WHOLE BLOOD Result Value Ref Range Lactate, Whole Blood 3.3 (H) 0.5 - 1.6 mmol/L Imaging Results: VASC DUPLEX VENOUS EXTREMITY LOWER RIGHT (Results Pending) CT ABDOMEN/PELVIS WITH CONTRAST (Results Pending) ED Course: Upon arrival to the Emergency Department, the patient is lying in bed, appears somewhat uncomfortable, reports difficulty ranging right hip or bearing weight on right leg. There is erythema and tenderness to the right groin and right proximal thigh. No crepitance however patient reports that the erythema is new even since he woke up this morning. His vitals are normal. Given 10 mg oxycodone for pain. CBC with leukocytosis of 13.6, up from patient's baseline around 10-12. Due to concerns for possible soft tissue infection, blood cultures and a lactate were also obtained. Lactate elevated at 3.3; we will give 1 L of IV fluids and recheck. No significant electrolyte or renal function derangement. Urinalysis and urine culture pending. Will obtain right lower extremity DVT ultrasound as well as a CT abdomen and pelvis with contrast. Suspicion is relatively high for soft tissue infection, low but present suspicion for possible necrotizing infection. Will treat with IV vancomycin pending CT abdomen and pelvis. CT A/P urgent result 1415: soft tissue gas inconsistent with surgery 10 days ago. 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 Added on Zosyn and Clinda and paged urology. Urology consulted, recommendations treatment for cellulitis and admission to Urology med/surg underDr Dason. Pt agreeable with plan of admission. Medical Decision Making Amount and/or Complexity of Data Reviewed Labs: ordered. Decision-making details documented in ED Course. Radiology: ordered. Decision-making details documented in ED Course. Risk Prescription drug management. Decision regarding hospitalization. IMPRESSION 1. Right groin pain 2. Vishal disease DISPOSITION Admission This was a shared visit with Dr. Andrews. The plan of care and all medication prescriptions for this patient were discussed with the attending physician. This dictation was created with voice recognition software. While attempts have been made to reviewthe dictation as it is transcribed, on occasion the spoken word can be misinterpreted by the technology leading to omissions or inappropriate words, phrases or sentences. Minda Palmer PA-C 03/16/24 1322 Minda Palmer PA-C 03/16/24 1615 * Felicia Lopez RN - 03/16/2024 11:17 AM EDT Patient had bilateral groin lymph node removal 10 days ago - now has significant right sided groin swelling. Denies fevers or irregular drainage from site, drains still in place. [facility] Emergency department Note* Minda Palmer PA-C - 03/16/2024 11:57 AM EDT EMERGENCY DEPARTMENT ENCOUNTER CHIEF COMPLAINT Groin Pain HPI Melodie Medrano . is a 58 y.o. male with a past medical history of penile cancer s/p robotic bilateral inguinofemoral lymphadenectomy (03/05/24), DM, HTN, PE on Xarelto who presents to the Emergency Department for right groin pain History obtained from patient. Reports gradual development of right groin pain radiating to his right thigh beginning yesterday and acutely worsening overnight. States pain is worsened with palpationand weight-bearing with the right leg. Reports slightly decreased output from his right thigh drainsince yesterday as well. Some associated swelling. Symptoms somewhat feel like a DVT. Vomited x 1 this AM. He denies urinary changes or abdominal pain. No fevers or chills. No CP or SOB. Has taken Tylenol, Advil, and oxycodone with minimal improvement, though states at rest pain is manageable, primarily worsened with palpation and movement. Called Urology resident on-call who recommended ED evaluation due to severity of pain. REVIEW OF SYSTEMS Review of Systems Constitutional: Negative for chills, fever and malaise/fatigue. HENT: Negative for congestion and sore throat. Eyes: Negative for blurred vision, double vision and discharge. Respiratory: Negative for cough, shortness of breath and wheezing. Cardiovascular: Positive for leg swelling. Negative for chest pain and palpitations. Gastrointestinal: Positive for abdominal pain (right groin, denies abd pain) and vomiting. Negativefor blood in stool, constipation, diarrhea, melena and nausea. Genitourinary: Negative for dysuria and frequency. Musculoskeletal: Positive for myalgias (right groin/thigh). Negative for joint pain. Skin: Positive for rash (redness). Neurological: Negative for dizziness, focal weakness and headaches. Psychiatric/Behavioral: Negative for hallucinations and memory loss. PAST MEDICAL HISTORY Past Medical History: Diagnosis Date Diabetes mellitus Essential hypertension, benign Hyperlipidemia Melanoma left rib cage Penile ca Pulmonary embolism SURGICAL HISTORY Past Surgical History: Procedure Laterality Date LYMPHADENECTOMY INGUINOFEMORAL ROBOTIC Bilateral 03/05/2024 Laterality: Bilateral; Surgeon: Izaiah Maurer MD; [facility] AMPUTATION PENIS PARTIAL N/A 01/22/2024 Laterality: N/A; Surgeon: Izaiah Maurer MD; [facility] PERIOP ACL RECONSTRUCTION BACK SURGERY FOOT SURGERY Bilateral reconstructive OTHER SURGICAL Right undescended testicle VASECTOMY MEDICATIONS Current Outpatient Medications Medication Sig Acetaminophen 325 MG tablet Take 2 tablets by mouth every 4 hours for 7 days. amLODIPine 5 MG tablet Take 1-2 tablets by mouth daily. Cholecalciferol (Vitamin D) 25 MCG (1000 UT) tablet Take 1 tablet by mouth daily. cyanocobalamin 100 MCG tablet Take 1 tablet by mouth daily. Elastic Bandages & Supports (Medical Compression Stockings) Misc 1 Each by Unknown route daily. Enoxaparin Sodium 40 MG/0.4ML injection Inject 0.4 mL under the skin daily. Please perform injections as you were taught by your nursing team prior to your discharge from the hospital. Please stop after you have spoken to Dr. Maurer's office when you restart Xarelto. lisinopril 30 MG tablet Take 1 tablet by mouth daily. metFORMIN-XR 500 MG Tab SR 24 HR Take 1 tablet by mouth 2 times daily. Metoprolol succinate 50 MG tablet XL Take 1 tablet by mouth daily. omega-3 acid ethyl esters 1 g capsule Take 2 capsules by mouth 2 times daily. oxyCODONE 5 MG tablet Take 1 tablet by mouth every 6 hours as needed for Moderate Pain or Severe Pain for up to 14 days. Polyethylene glycol 17 g Pack packet Take 1 packet by mouth daily. Rosuvastatin 10 MG tablet Take 1 tablet by mouth daily. Sulfamethoxazole-trimethoprim 800-160 MG per tablet Take 1 tablet by mouth 2 times daily for 14 days. Tamsulosin HCl 0.4 MG capsule Take 1 capsule by mouth daily. Turmeric (QC TUMERIC COMPLEX PO) Take by mouth. Xarelto 20 MG tablet HOLD this medication until you have your CBC results and spoken with your PCP. ALLERGIES No Known Allergies FAMILY HISTORY Family History Problem Relation Age of Onset Aneurysm Father Cancer- Other Father melanoma Lung Cancer Maternal Grandmother SOCIAL HISTORY Social History Socioeconomic History Marital status: Tobacco Use Smoking status: Former Types: Cigarettes Smokeless tobacco: Former Types: Chew Substance and Sexual Activity Alcohol use: Yes Alcohol/week: 4.0 standard drinks of alcohol Types: 4 Shots of liquor per week Drug use: Never PHYSICAL EXAM Vitals: 03/16/24 1119 BP: 123/77 Pulse: 80 Resp: 18 Temp: 97.2 degrees F (36.2 degrees C) TempSrc: Skin SpO2: 98% Physical Exam Vitals and nursing note reviewed. Constitutional: General: He is in acute distress (appears uncomfortable). HENT: Head: Normocephalic and atraumatic. Right Ear: External ear normal. Left Ear: External ear normal. Eyes: General: Right eye: No discharge. Left eye: No discharge. Conjunctiva/sclera: Conjunctivae normal. Cardiovascular: Rate and Rhythm: Normal rate and regular rhythm. Pulses: Normal pulses. Pulmonary: Effort: Pulmonary effort is normal. No respiratory distress. Breath sounds: Normal breath sounds. No wheezing or rhonchi. Abdominal: General: There is no distension. Palpations: Abdomen is soft. Tenderness: There is no abdominal tenderness. There is no guarding. Genitourinary: Comments: Erythema, edema and TTP to right inguinal region, erythema, warmth and mild induration extending inferiorly down R thigh. No crepitance. Decreased ROM R hip secondary to pain. Able to ambulate. Musculoskeletal: Cervical back: Normal range of motion and neck supple. No rigidity. Right lower leg: No edema. Left lower leg: No edema. Comments: BL lower extremities warm and well perfused with soft compartments Skin: General: Skin is warm and dry. Neurological: General: No focal deficit present. Mental Status: He is alert and oriented to person, place, and time. Psychiatric: Mood and Affect: Mood normal. Behavior: Behavior normal. ED COURSE & MEDICAL DECISION MAKING Melodie Medrano Jr. is a 58 y.o. male with a past medical history of penile cancer s/p robotic bilateral inguinofemoral lymphadenectomy (03/05/24), DM, HTN, PE on Xarelto who presents via pv from home to the Emergency Department for right groin pain Differential diagnosis includes, but is not limited to cellulitis, abscess, NSTI, DVT, dehydration,electrolyte derangement PLAN - CBC, Chem 7, Electrolytes, blood cultures, lactate, urine - RLE DVT US - CT A/P with extension to mid thigh - Pain control - IV ABX - Urology c/s Results for orders placed or performed during the hospital encounter of 03/16/24 [facility] 7 - ED Result Value Ref Range Sodium 132 (L) 135 - 145 mmol/L Potassium 4.3 3.5 - 5.0 mmol/L Chloride 100 98 - 108 mmol/L CO2 22 21 - 31 mmol/L Glucose 194 (H) 70 - 99 mg/dL BUN 15 7 - 25 mg/dL Creatinine 1.00 0.70 - 1.30 mg/dL Bun/Crea Ratio 15 Osmolality (Calculated) 285 278 - 305 mOsm/kg Anion Gap 14 7 - 17 mmol/L eGFR, CKD-EPI, Male 87 >=60 mL/min/1.73m2 CALCIUM Result Value Ref Range Calcium 9.1 8.6 - 10.5 mg/dL MAGNESIUM Result Value Ref Range Magnesium 1.5 (L) 1.6 - 2.6 mg/dL PHOSPHATE, INORGANIC Result Value Ref Range Phosphorous 3.7 2.2 - 4.6 mg/dL CBC AND ELECTRONIC DIFF Result Value Ref Range WBC Count 13.60 (H) 3.73 - 10.10 K/uL RBC Count 4.41 4.38 - 5.83 M/uL Hemoglobin 13.3 (L) 13.4 - 16.8 g/dL Hematocrit 38.6 (L) 39.6 - 48.8 % Mean Cell Volume 87.5 79.0 - 94.5 fL Mean Cell Hgb 30.2 26.1 - 33.3 pg Mean Cell Hgb Conc 34.5 31.9 - 36.5 g/dL RBC Distribution 13.4 10.9 - 14.3 % Platelet Count 228 146 - 337 K/uL Mean Platelet Volume 8.7 8.7 - 12.3 fL DIFF STATUS Electronic Differential Segs + Bands Auto 80.6 % Immature Grans % 0.3 % Lymphocyte % Auto 10.5 % Monocyte % Auto 7.8 % Eosinophil % Auto 0.4 % Basophil % Auto 0.4 % Nucleated RBC 0.0 <=0.2 /100 WBC Segs + Bands,Absolute Auto 10.95 (H) 1.57 - 6.19 K/uL Immature Grans Absolute 0.04 <=0.07 K/uL Abs Lymph Auto 1.43 0.83 - 3.57 K/uL Abs [place] Auto 1.06 (H) 0.24 - 0.93 K/uL Abs Eos Auto 0.06 0.00 - 0.48 K/uL Abs Baso Auto 0.06 0.00 - 0.09 K/uL LACTATE, WHOLE BLOOD Result Value Ref Range Lactate, Whole Blood 3.3 (H) 0.5 - 1.6 mmol/L Imaging Results: VASC DUPLEX VENOUS EXTREMITY LOWER RIGHT (Results Pending) CT ABDOMEN/PELVIS WITH CONTRAST (Results Pending) ED Course: Upon arrival to the Emergency Department, the patient is lying in bed, appears somewhat uncomfortable, reports difficulty ranging right hip or bearing weight on right leg. There is erythema and tenderness to the right groin and right proximal thigh. No crepitance however patient reports that the erythema is new even since he woke up this morning. His vitals are normal. Given 10 mg oxycodone for pain. CBC with leukocytosis of 13.6, up from patient's baseline around 10-12. Due to concerns for possible soft tissue infection, blood cultures and a lactate were also obtained. Lactate elevated at 3.3; we will give 1 L of IV fluids and recheck. No significant electrolyte or renal function derangement. Urinalysis and urine culture pending. Will obtain right lower extremity DVT ultrasound as well as a CT abdomen and pelvis with contrast. Suspicion is relatively high for soft tissue infection, low but present suspicion for possible necrotizing infection. Will treat with IV vancomycin pending CT abdomen and pelvis. CT A/P urgent result 1415: soft tissue gas inconsistent with surgery 10 days ago. 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 Added on Zosyn and Clinda and paged urology. Urology consulted, recommendations treatment for cellulitis and admission to Urology med/surg underDr Dason. Pt agreeable with plan of admission. Medical Decision Making Amount and/or Complexity of Data Reviewed Labs: ordered. Decision-making details documented in ED Course. Radiology: ordered. Decision-making details documented in ED Course. Risk Prescription drug management. Decision regarding hospitalization. IMPRESSION 1. Right groin pain 2. Vishal disease DISPOSITION Admission This was a shared visit with Dr. Andrews. The plan of care and all medication prescriptions for this patient were discussed with the attending physician. This dictation was created with voice recognition software. While attempts have been made to reviewthe dictation as it is transcribed, on occasion the spoken word can be misinterpreted by the technology leading to omissions or inappropriate words, phrases or sentences. Minda Palmer PA-C 03/16/24 1322 Minda Palmer PA-C 03/16/24 1615 [facility] Emergency department Note* Felicia Lopez RN - 03/16/2024 11:17 AM EDT Patient had bilateral groin lymph node removal 10 days ago - now has significant right sided groin swelling. Denies fevers or irregular drainage from site, drains still in place. [facility] Plan of care note* Plan of Care - Trent Linda MD - 03/10/2024 10:16 PM EDT Images from the original note were not included. Urology Plan of Care Note Notified by ED triage Pt Melodie Medrano...has arrived to ED triage. Pt had surgery on 03/05... All ED rooms are full but can put in side triage room for eval. Pt is s/p Robotic Bilateral Inguinofemoral Lymphadenectomy 03/05/[address] Maurer. Discharged 03/06 with bilateral thigh drains. Pt called in this AM noting right drain was not draining and had accumulation of fluid in his rightleg. Noted tellez of fluid down leg. He was directed to local ED where they were not comfortable managing drains. Dr. Maurer was notified and pt directed to ED at [facility]. Pt seen in triage room. Reports he noted right drain was not draining this AM. Once he stood up felt a gush of fluid down his leg. While at [facility] ED noted left drain was not draining either and had another gush of fluid. Did note episode of searing pain in right thigh when drain was not draining and fluid building up but this has resolved. No fevers, nausea, vomiting. Pain controlled otherwise. Ambulating well and utilizing thigh high compression stockings ATC. Objective: BP 128/72 Pulse 78 Temp 97.8 F (36.6 C) (Oral) Resp 18 Ht 1.956 m (6' 5) [id number]% BMI 28.25 kg/m Smoking Status Former GEN: Laying comfortably in bed, no acute distress. RESP: No increased work of breathing. CARD: Regular rate and rhythm via pulse. ABD: Soft, appropriately tender to palpation, non-distended. EXT: Bilateral lower extremities with thigh high compression stockings, neither drain draining. Incisions C/D/I with dermabond on top. Drain sites with minimal erythema. No warmth, tenderness, fluctuance, or any other sign of infection. Removed dressing on top of each drain. Drains in appropriate position, no black chela noted outside patient. Noted clots in both. Extensive clot burden in right drain and near exit site of thigh. Ableto strip completely and drain immediately with outpouring of fluid. Stripped left drain and began draining as well. Educated pt and on acceptable stripping technique and when to strip drain. : partial penectomy with well healed, mild to moderate scrotal edema 03/10/24: No results for input(s): WBC, HGB, CREATSERUM in the last 72 hours. Assessment & Plan: Melodie Medrano . is a 58 y.o. 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 He presented with non functioning drains which began functioning when stripped. He is otherwise asymptomatic and would like to go home. > Patient okay to go home > Educated pt and on acceptable stripping technique and when to strip drain. Gave additional wound supplies/stockings > Patient can keep follow up 03/20/[address] Sydney Maurer updated on patient and agreed with plan above. [facility]08-27-2024 Miscellaneous Notes* Plan of Care - Trent Linda MD - 03/10/2024 10:16 PM EDT Images from the original note were not included. Urology Plan of Care Note Notified by ED triage Pt Melodie Medrano...has arrived to ED triage. Pt had surgery on 03/05... All ED rooms are full but can put in side triage room for eval. Pt is s/p Robotic Bilateral Inguinofemoral Lymphadenectomy 03/05/[address] Maurer. Discharged 03/06 with bilateral thigh drains. Pt called in this AM noting right drain was not draining and had accumulation of fluid in his rightleg. Noted tellez of fluid down leg. He was directed to local ED where they were not comfortable managing drains. Dr. Maurer was notified and pt directed to ED at [facility]. Pt seen in triage room. Reports he noted right drain was not draining this AM. Once he stood up felt a gush of fluid down his leg. While at OSH ED noted left drain was not draining either and had another gush of fluid. Did note episode of searing pain in right thigh when drain was not draining and fluid building up but this has resolved. No fevers, nausea, vomiting. Pain controlled otherwise. Ambulating well and utilizing thigh high compression stockings ATC. Objective: BP 128/72 Pulse 78 Temp 97.8 F (36.6 C) (Oral) Resp 18 Ht 1.956 m (6' 5) [id number]% BMI 28.25 kg/m Smoking Status Former GEN: Laying comfortably in bed, no acute distress. RESP: No increased work of breathing. CARD: Regular rate and rhythm via pulse. ABD: Soft, appropriately tender to palpation, non-distended. EXT: Bilateral lower extremities with thigh high compression stockings, neither drain draining. Incisions C/D/I with dermabond on top. Drain sites with minimal erythema. No warmth, tenderness, fluctuance, or any other sign of infection. Removed dressing on top of each drain. Drains in appropriate position, no black chela noted outside patient. Noted clots in both. Extensive clot burden in right drain and near exit site of thigh. Ableto strip completely and drain immediately with outpouring of fluid. Stripped left drain and began draining as well. Educated pt and on acceptable stripping technique and when to strip drain. : partial penectomy with well healed, mild to moderate scrotal edema 03/10/24: No results for input(s): WBC, HGB, CREATSERUM in the last 72 hours. Assessment & Plan: Melodie Medrano Jr. is a 58 y.o. 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 He presented with non functioning drains which began functioning when stripped. He is otherwise asymptomatic and would like to go home. > Patient okay to go home > Educated pt and on acceptable stripping technique and when to strip drain. Gave additional wound supplies/stockings > Patient can keep follow up 03/20/[address] Sydney Maurer updated on patient and agreed with plan above. [facility] Emergency [facility] Note* Yvonne Massey MD - 03/10/2024 10:07 PM EDT EMERGENCY DEPARTMENT ENCOUNTER CHIEF COMPLAINT Post-Op Problem HPI Melodie Medrano Jr. is a 58 y.o. male with a past medical history significant for penile cancer POD 5 s/p robotic assisted inguinofemoral lymphadenectomy who presents with drain malfunction. REVIEW OF SYSTEMS See history of present illness for pertinent positive and negative review of systems. A 14 point review systems was reviewed and are negative except as indicated above. PAST MEDICAL HISTORY Past Medical History: Diagnosis Date Diabetes mellitus Essential hypertension, benign Hyperlipidemia Melanoma left rib cage Penile ca Pulmonary embolism SURGICAL HISTORY Past Surgical History: Procedure Laterality Date LYMPHADENECTOMY INGUINOFEMORAL ROBOTIC Bilateral 03/05/2024 Laterality: Bilateral; Surgeon: Izaiah Maurer MD; [facility] MA[facility] OR AMPUTATION PENIS PARTIAL N/A 01/22/2024 Laterality: N/A; Surgeon: Izaiah Maurer MD; Location: [facility] OSC PERIOP ACL RECONSTRUCTION BACK SURGERY FOOT SURGERY Bilateral reconstructive OTHER SURGICAL Right undescended testicle VASECTOMY CURRENT MEDICATIONS Current Outpatient Medications Medication Sig Acetaminophen 325 MG tablet Take 2 tablets by mouth every 4 hours for 7 days. amLODIPine 5 MG tablet Take 1-2 tablets by mouth daily. Cholecalciferol (Vitamin D) 25 MCG (1000 UT) tablet Take 1 tablet by mouth daily. cyanocobalamin 100 MCG tablet Take 1 tablet by mouth daily. Elastic Bandages & Supports (Medical Compression Stockings) Misc 1 Each by Unknown route daily. Enoxaparin Sodium 40 MG/0.4ML injection Inject 0.4 mL under the skin daily. Please perform injections as you were taught by your nursing team prior to your discharge from the hospital. Please stop after you have spoken to Dr. Maurer's office when you restart Xarelto. lisinopril 30 MG tablet Take 1 tablet by mouth daily. metFORMIN-XR 500 MG Tab SR 24 HR Take 1 tablet by mouth 2 times daily. Metoprolol succinate 50 MG tablet XL Take 1 tablet by mouth daily. omega-3 acid ethyl esters 1 g capsule Take 2 capsules by mouth 2 times daily. oxyCODONE 5 MG tablet Take 1 tablet by mouth every 6 hours as needed for Moderate Pain or Severe Pain for up to 14 days. Polyethylene glycol 17 g Pack packet Take 1 packet by mouth daily. Rosuvastatin 10 MG tablet Take 1 tablet by mouth daily. Sulfamethoxazole-trimethoprim 800-160 MG per tablet Take 1 tablet by mouth 2 times daily for 14 days. Tamsulosin HCl 0.4 MG capsule Take 1 capsule by mouth daily. Turmeric (QC TUMERIC COMPLEX PO) Take by mouth. Xarelto 20 MG tablet HOLD this medication until you have your CBC results and spoken with your PCP. ALLERGIES No Known Allergies FAMILY HISTORY Family History Problem Relation Age of Onset Aneurysm Father Cancer- Other Father melanoma Lung Cancer Maternal Grandmother SOCIAL HISTORY Social History Socioeconomic History Marital status: Tobacco Use Smoking status: Former Types: Cigarettes Smokeless tobacco: Former Types: Chew Substance and Sexual Activity Alcohol use: Yes Alcohol/week: 4.0 standard drinks of alcohol Types: 4 Shots of liquor per week Drug use: Never PHYSICAL EXAM VITAL SIGNS: BP 128/72 Pulse 78 Temp 97.8 F (36.6 C) (Oral) Resp 18 Ht 1.956 m (6' 5) SpO2 98% BMI 28.25 kg/m Smoking Status Former General: In general the patient is in no acute distress. HEENT: NCAT Neck: Normal inspection Respiratory: No respiratory distress CVS: Heart is RR Abdomen: Non distended Skin: Normal color Extremities: No deformities Neuro: Oriented x3, GCS of 15 Psych: Mood and affect normal. No results found for this visit on 03/10/24. No orders to display ED COURSE, MEDICAL DECISION MAKING, PLAN OF CARE On 03/10/2024 I saw and examined the patient. Differential Diagnosis/Impression: 58 year old with recent inguinofemoral lymphadenectomy who presents from OSH for evaluation of drain malfunction. Vitals normal. Urology has evaluated the patient and the drain is not functioning. All questions answered and patient comfortable with discharge. Has follow up with urology in 2 weeks. Return precautions provided. Medical Decision Making Yvonne Massey ED Attending Physician [facility] Yvonne Massey MD 03/10/242 [facility]08-27-2024 Emergency department Note* Yvonne Massey MD - 03/10/2024 10:07 PM EDT EMERGENCY DEPARTMENT ENCOUNTER CHIEF COMPLAINT Post-Op Problem HPI Melodie Hernandez Mitchell Luther is a 58 y.o. male with a past medical history significant for penile cancer POD 5 s/p robotic assisted inguinofemoral lymphadenectomy who presents with drain malfunction. REVIEW OF SYSTEMS See history of present illness for pertinent positive and negative review of systems. A 14 point review systems was reviewed and are negative except as indicated above. PAST MEDICAL HISTORY Past Medical History: Diagnosis Date Diabetes mellitus Essential hypertension, benign Hyperlipidemia Melanoma left rib cage Penile ca Pulmonary embolism SURGICAL HISTORY Past Surgical History: Procedure Laterality Date LYMPHADENECTOMY INGUINOFEMORAL ROBOTIC Bilateral 03/05/2024 Laterality: Bilateral; Surgeon: Izaiah Maurer MD; Location: [facility] MAIN OR AMPUTATION PENIS PARTIAL N/A 01/22/2024 Laterality: N/A; Surgeon: Izaiah Maurer MD; Location: [facility] OSC PERIOP ACL RECONSTRUCTION BACK SURGERY FOOT SURGERY Bilateral reconstructive OTHER SURGICAL Right undescended testicle VASECTOMY CURRENT MEDICATIONS Current Outpatient Medications Medication Sig Acetaminophen 325 MG tablet Take 2 tablets by mouth every 4 hours for 7 days. amLODIPine 5 MG tablet Take 1-2 tablets by mouth daily. Cholecalciferol (Vitamin D) 25 MCG (1000 UT) tablet Take 1 tablet by mouth daily. cyanocobalamin 100 MCG tablet Take 1 tablet by mouth daily. Elastic Bandages & Supports (Medical Compression Stockings) Misc 1 Each by Unknown route daily. Enoxaparin Sodium 40 MG/0.4ML injection Inject 0.4 mL under the skin daily. Please perform injections as you were taught by your nursing team prior to your discharge from the hospital. Please stop after you have spoken to Dr. Maurer's office when you restart Xarelto. lisinopril 30 MG tablet Take 1 tablet by mouth daily. metFORMIN-XR 500 MG Tab SR 24 HR Take 1 tablet by mouth 2 times daily. Metoprolol succinate 50 MG tablet XL Take 1 tablet by mouth daily. omega-3 acid ethyl esters 1 g capsule Take 2 capsules by mouth 2 times daily. oxyCODONE 5 MG tablet Take 1 tablet by mouth every 6 hours as needed for Moderate Pain or Severe Pain for up to 14 days. Polyethylene glycol 17 g Pack packet Take 1 packet by mouth daily. Rosuvastatin 10 MG tablet Take 1 tablet by mouth daily. Sulfamethoxazole-trimethoprim 800-160 MG per tablet Take 1 tablet by mouth 2 times daily for 14 days. Tamsulosin HCl 0.4 MG capsule Take 1 capsule by mouth daily. Turmeric (QC TUMERIC COMPLEX PO) Take by mouth. Xarelto 20 MG tablet HOLD this medication until you have your CBC results and spoken with your PCP. ALLERGIES No Known Allergies FAMILY HISTORY Family History Problem Relation Age of Onset Aneurysm Father Cancer- Other Father melanoma Lung Cancer Maternal Grandmother SOCIAL HISTORY Social History Socioeconomic History Marital status: Tobacco Use Smoking status: Former Types: Cigarettes Smokeless tobacco: Former Types: Chew Substance and Sexual Activity Alcohol use: Yes Alcohol/week: 4.0 standard drinks of alcohol Types: 4 Shots of liquor per week Drug use: Never PHYSICAL EXAM VITAL SIGNS: BP 128/72 Pulse 78 Temp 97.8 F (36.6 C) (Oral) Resp 18 Ht 1.956 m (6' 5) SpO2 98% BMI 28.25 kg/m Smoking Status Former General: In general the patient is in no acute distress. HEENT: NCAT Neck: Normal inspection Respiratory: No respiratory distress CVS: Heart is RR Abdomen: Non distended Skin: Normal color Extremities: No deformities Neuro: Oriented x3, GCS of 15 Psych: Mood and affect normal. No results found for this visit on 03/10/24. No orders to display ED COURSE, MEDICAL DECISION MAKING, PLAN OF CARE On 03/10/2024 I saw and examined the patient. Differential Diagnosis/Impression: 58 year old with recent inguinofemoral lymphadenectomy who presents from OSH for evaluation of drain malfunction. Vitals normal. Urology has evaluated the patient and the drain is not functioning. All questions answered and patient comfortable with discharge. Has follow up with urology in 2 weeks. Return precautions provided. Medical Decision Making Yvonne Massey ED Attending Physician [facility] Yvonne Massey MD 03/10/242211 * Eve Connell RN - 03/10/2024 10:05 PM EDT Bed: [facility] Expected date: Expected time: Means of arrival: Comments: Urology seeing triage pt zafarsophy briones * Eve Connell RN - 03/10/2024 8:25 PM EDT Urology paged regarding pt's arrival. Pt Melodie Medrano has arrived to ED [facility]. Pt had surgery on 03/05. Called pasting machine offbearer number and was told to come to ED. All ED rooms are full but can put in side triage room for eval. Call [phone] * Eve Connell RN - 03/10/2024 8:12 PM EDT Pt had bilateral lymph node removal on 03/05. Pt reports with leaking to bilateral incisions. Pt has ROSA MARIA drains to bilateral legs and the right side has stopped draining. Pt's surgeon aware ofissue and told pt to come to ED for further eval. [facility]* Eve Connell RN - 03/10/2024 10:05 PM EDT Bed: [facility] Expected date: Expected time: Means of arrival: Comments: Urology seeing triage pt liseth anselmo [facility]08-27-2024 Emergency department Note* Eve Connell RN - 03/10/2024 8:25 PM EDT Urology paged regarding pt's arrival. Pt Melodie Medrano Jr has arrived to ED [facility]. Pt had surgery on 03/05. Called pasting machine offbearer number and was told to come to ED. All ED rooms are full but can put in side triage room for eval. Call [phone] [facility]08-27-2024 Emergency department Note* Eve Connell RN - 03/10/2024 8:12 PM EDT Pt had bilateral lymph node removal on 03/05. Pt reports with leaking to bilateral incisions. Pt has ROSA MARIA drains to bilateral legs and the right side has stopped draining. Pt's surgeon aware ofissue and told pt to come to ED for further eval. [facility]08-27-2024 Hospital Discharge instructions Patient Education 03/10/2024 15:40:04 Post Op Wound Check, General Wound Check After Surgery, No Complication Surgery involves cutting through layers of skin, fatty tissue, muscle, and sometimes bone and cartilage. Stitches or vangie are used to close all layers of the wound. The stitches on the inside willdissolve in about 2 to 3 weeks. Any stitches or vangie used on the outside need to be removed in about 7 to 14 days, depending on the location. It is normal to have some clear or bloody discharge on the wound covering or bandage (dressing) forthe first few days after surgery. If your wound was stitched closed, you should not have to change the dressing more than twice a day in the first few days. Bleeding or discharge requiring more frequent dressing changes can be a sign of a problem. It is normal to feel pain at the incision site. The pain decreases as the wound heals. Most of the pain and soreness from the skin incision should go away by the time the sutures or vangie are removed. Soreness and pain from deeper tissues may last another week or two. Pain that continues more than a few weeks after surgery or pain that worsens anytime after surgery can be a sign of a problem, such as: Infection Separation of wound edges Collection of blood or other below the skin Home care Different types of surgery require different types of care and dressing changes. It is important tofollow all instructions and advice from your surgeon, as well as other members of your healthcare team. Wound care If you smoke, get help to quit. Smoking interferes with wound healing. Ask your healthcare providerabout ways to quit. Keep the wound clean, as directed by your healthcare provider. Change the dressing as directed. Change the dressing sooner if it becomes wet or stained with bloodor fluid from the wound. Bathe with a sponge (no shower or tub baths) for the first few days after surgery, or until there is no more drainage from the wound. Unless you received different instructions from your surgeon, youcan then shower. Don't soak the area in water (no baths or swimming) until the tape, stitches, or vangie are removed and any wound opening has dried out and healed. Changing the dressing Wash your hands before changing the dressings. Carefully remove the dressing and tape; don t just yank it off. If it sticks to the wound, you may need to wet it a little to remove it, unless your healthcare provider told you not to wet it. Wash your hands again before putting on a new, clean dressing. Gently clean the wound with clean water (or saline) using gauze or a clean washcloth. Don't rub it or pick at it. Don't use soap, alcohol, hydrogen peroxide, or any other cleanser. If you were told to dry the wound before putting on a new dressing, gently pat it dry. Don't rub. Put the old dressing in a sealed plastic bag and throw it out. Don't reuse it. Wash your hands again when you are done. Types of dressings Your healthcare team will tell you what type of dressing to put on your wound. Follow your healthcare team s instructions carefully, and contact them if you have any questions. Two common types of dressings are described below. You may have one of these or another type. Dry dressing. Use dry gauze. If the wound is still draining, use a nonadherent dressing, which shouldn t stick to the wound. Wet-to-dry dressing. Wet the gauze, and squeeze out the excess water (or saline), before putting iton. Then, cover this with a dry pad. Medicines If you were given antibiotics, take them until they are used up or your healthcare provider tells you to stop. It is important to finish the antibiotics even though you feel better, to make sure the infection has cleared. You can take acetaminophen or ibuprofen for pain, unless you were given a different pain medicine to use. If you have chronic liver or kidney disease, or have ever had a stomach ulcer or gastrointestinal bleeding, or are taking blood thinner medicines, talk with your healthcare provider before using these medicines. Aspirin should never be used in anyone under 18 years of age who is ill with a fever. It may cause severe liver damage. Follow-up care Follow up with your healthcare provider, or as advised, for your next wound check or removal of your stitches, vangie, or tape. If a culture was done, you will be notified if the results will affect your treatment. You can callas directed for the results. If imaging tests, such as X-rays, an ultrasound, or CT scan were done, they will be reviewed by a specialist. You will be notified of the results, especially if they affect treatment. Call 911 Call 911 if any of these occur: Trouble breathing or swallowing, wheezing Hoarse voice or trouble speaking Extreme confusion Extreme drowsiness or trouble awakening Fainting or loss of consciousness Rapid heart rate or very slow heart rate Vomiting blood, or large amounts of blood in stool Discomfort in the center of the chest that feels like pressure, squeezing, a sense of fullness, or pain. Discomfort or pain in other upper body areas, such as the back, one or both arms, neck, jaw, or stomach Stroke symptoms (spot a stroke FAST ) oF: Face drooping. One side of the face is numb or droops. oA: Arm weakness. One arm feels weak or numb. oS: Speech difficulty: Speech is slurred, or the person is unable to speak. oT: Time to call 911. Even if symptoms go away, call 911. When to seek medical advice Call your healthcare provider right away if any of the following occur: Increasing pain at the site of surgery Fever of 100.4 F (38 C) or higher, or as directed by your healthcare provider Redness around the wound Fluid, pus, or blood draining from the wound Vomiting, constipation, or diarrhea [id number] [employer]. [address] [place] [address]. All rights reserved. This information is not intended as a substitute for professional medical care. Always follow yourhealthcare professional's instructions. Follow Up Care 03/10/2024 12:01:46 With:VIDAL JUAREZ DO Address: [address] [place] [address] [phone] When:2-4 days [facility] 08-27-2024 Note Discharge Instructions Thank you for allowing [facility] to assist you with your healthcare needs. The following is importantdischarge information regarding your hospital visit. Diagnosis from Today's Visit Postoperative problem What to Do Next Instructions from Your Care Team Please follow-up with your surgeon, Dr. Maurer within the next day or 2. Follow- up fever, chills, excruciating pain, tightness to your thigh, redness or purulent drainage please go to the emergency department to get reevaluated. No qualifying data available. Post Acute Orders No qualifying data available. You Need to Schedule the Following Appointments Follow Up with VIDAL JUAREZ DO When:Within 2-4 days Where:[address] [facility] [place] [address]- [phone] Allergies NKA Medications Please ask your primary doctor or pharmacist before taking any other medication not listed, including over the counter drugs, herbal medications, vitamins and or supplements as they may interact withyour home medications. What How Much When Why Instructions Last Dose Unchanged amLODIPine (amLODIPine 5 mg oral tablet) 1 tab(s) by mouth Once a day Unchanged cyanocobalamin (Vitamin B12 1000 mcg oral tablet) 1 tab(s) by mouth Once a day Unchanged ergocalciferol (ergocalciferol 50,000 intl units (1.25 mg) oral capsule) 1 cap by mouth Every week Unchanged herbal/ nutritional product (turmeric 500 mg oral capsule) 1 cap by mouth Every day Unchanged lisinopril (lisinopril 30 mg oral tablet) 1 tab(s) by mouth Daily at bedtime Unchanged metFORMIN (MetFORMIN (Eqv-Glucophage XR) 500 mg oral tablet, EXTENDED RELEASE) 2 tab(s) by mouth Two (2) times a day Unchanged metoprolol (Metoprolol Succinate ER 50 mg oral TABLET extended release) 1 tab(s) by mouth Once a day Unchanged omega-3 polyunsaturated fatty acids ([place]-3 Fish Oil) by mouth Once a day Unchanged rivaroxaban (Xarelto 20 mg oral tablet) 1 tab(s) by mouth With supper Unchanged rosuvastatin (rosuvastatin 10 mg oral tablet) 1 tab(s) by mouth Once a day Unchanged sildenafil (sildenafil 25 mg oral tablet) 1 tab(s) by mouth Once a day Erectile dysfunction Can take up to 50mg. 1 hour before sexual activity Unchanged tamsulosin (Flomax 0.4 mg oral capsule) 1 cap by mouth Once a day Kidney stone take until all stones pass, up to 4 weeks Please take this list to your next doctor s visit. Bring all medications you take, including over the counter medications, herbals and other supplements with you to your doctor s visit. Patients and families are reminded to discard old lists and to update any records with all medication providers or retail pharmacies. Education Materials Wound Check After Surgery, No Complication Surgery involves cutting through layers of skin, fatty tissue, muscle, and sometimes bone and cartilage. Stitches or vangie are used to close all layers of the wound. The stitches on the inside willdissolve in about 2 to 3 weeks. Any stitches or vangie used on the outside need to be removed in about 7 to 14 days, depending on the location. It is normal to have some clear or bloody discharge on the wound covering or bandage (dressing) forthe first few days after surgery. If your wound was stitched closed, you should not have to change the dressing more than twice a day in the first few days. Bleeding or discharge requiring more frequent dressing changes can be a sign of a problem. It is normal to feel pain at the incision site. The pain decreases as the wound heals. Most of the pain and soreness from the skin incision should go away by the time the sutures or vangie are removed. Soreness and pain from deeper tissues may last another week or two. Pain that continues more than a few weeks after surgery or pain that worsens anytime after surgery can be a sign of a problem, such as: Infection Separation of wound edges Collection of blood or other below the skin Home care Different types of surgery require different types of care and dressing changes. It is important tofollow all instructions and advice from your surgeon, as well as other members of your healthcare team. Wound care If you smoke, get help to quit. Smoking interferes with wound healing. Ask your healthcare providerabout ways to quit. Keep the wound clean, as directed by your healthcare provider. Change the dressing as directed. Change the dressing sooner if it becomes wet or stained with bloodor fluid from the wound. Bathe with a sponge (no shower or tub baths) for the first few days after surgery, or until there is no more drainage from the wound. Unless you received different instructions from your surgeon, youcan then shower. Don't soak the area in water (no baths or swimming) until the tape, stitches, or vangie are removed and any wound opening has dried out and healed. Changing the dressing Wash your hands before changing the dressings. Carefully remove the dressing and tape; don t just yank it off. If it sticks to the wound, you may need to wet it a little to remove it, unless your healthcare provider told you not to wet it. Wash your hands again before putting on a new, clean dressing. Gently clean the wound with clean water (or saline) using gauze or a clean washcloth. Don't rub it or pick at it. Don't use soap, alcohol, hydrogen peroxide, or any other cleanser. If you were told to dry the wound before putting on a new dressing, gently pat it dry. Don't rub. Put the old dressing in a sealed plastic bag and throw it out. Don't reuse it. Wash your hands again when you are done. Types of dressings Your healthcare team will tell you what type of dressing to put on your wound. Follow your healthcare team s instructions carefully, and contact them if you have any questions. Two common types of dressings are described below. You may have one of these or another type. Dry dressing. Use dry gauze. If the wound is still draining, use a nonadherent dressing, which shouldn t stick to the wound. Wet-to-dry dressing. Wet the gauze, and squeeze out the excess water (or saline), before putting iton. Then, cover this with a dry pad. Medicines If you were given antibiotics, take them until they are used up or your healthcare provider tells you to stop. It is important to finish the antibiotics even though you feel better, to make sure the infection has cleared. You can take acetaminophen or ibuprofen for pain, unless you were given a different pain medicine to use. If you have chronic liver or kidney disease, or have ever had a stomach ulcer or gastrointestinal bleeding, or are taking blood thinner medicines, talk with your healthcare provider before using these medicines. Aspirin should never be used in anyone under 18 years of age who is ill with a fever. It may cause severe liver damage. Follow-up care Follow up with your healthcare provider, or as advised, for your next wound check or removal of your stitches, vangie, or tape. If a culture was done, you will be notified if the results will affect your treatment. You can callas directed for the results. If imaging tests, such as X-rays, an ultrasound, or CT scan were done, they will be reviewed by a specialist. You will be notified of the results, especially if they affect treatment. Call 911 Call 911 if any of these occur: Trouble breathing or swallowing, wheezing Hoarse voice or trouble speaking Extreme confusion Extreme drowsiness or trouble awakening Fainting or loss of consciousness Rapid heart rate or very slow heart rate Vomiting blood, or large amounts of blood in stool Discomfort in the center of the chest that feels like pressure, squeezing, a sense of fullness, or pain. Discomfort or pain in other upper body areas, such as the back, one or both arms, neck, jaw, or stomach Stroke symptoms (spot a stroke FAST ) oF: Face drooping. One side of the face is numb or droops. oA: Arm weakness. One arm feels weak or numb. oS: Speech difficulty: Speech is slurred, or the person is unable to speak. oT: Time to call 911. Even if symptoms go away, call 911. When to seek medical advice Call your healthcare provider right away if any of the following occur: Increasing pain at the site of surgery Fever of 100.4 F (38 C) or higher, or as directed by your healthcare provider Redness around the wound Fluid, pus, or blood draining from the wound Vomiting, constipation, or diarrhea [id number] [employer]. [address] [place] [address]. All rights reserved. This information is not intended as a substitute for professional medical care. Always follow yourhealthcare professional's instructions. Additional Information VACCINATE! IT SAVES LIVES! Members of the community who have not yet received the COVID-19 vaccine and would like to receive it can visit one of [facility] vaccine clinics. There are many vaccine clinic locations within the [facility]. For locations and available times, please visit www.gettheshot.coronavirus.[place].gov/. It is important to note that some COVID mobile vaccine clinics are held outdoors and may be canceled in rainy or stormy conditions. To learn more about pediatric vaccinations (ages 5-11), we invite you to visit the [facility] webpage. [email or web address].[email or web address].org/pages/[email or web address]-Cmgah-Raawxhhjfst-Ucsnhfxffr-Sdism-[email or web address] stions.htmlTo learn more about the COVID-19 vaccine, we invite you to visit the CDC website for a list of frequently asked questions. https://www.cdc.gov/coronavirus/2019-ncov/vaccines/faq.html [facility] Patient Portal Access Instructions: Stay connected with your healthcare team and access your personal medical information anytime with the [employer] Patient Portal. If you would like a full copy of your medical records please contact the [facility] Medical Records Department Saturday through Saturday between 8a.m. and 4:30p.m. Please follow the directions below to access the portal: 1.Access the email account you provided upon registration to the [facility].2.Look for an invitation email from [facility].3.Open the email and access the invitation link: Accept Invitation to [facility]4.Fill in the required ribeiro to create your account. Sign into [email or web address] with your username and password that you created in the above steps to stay up to date. You can then view a summary of results, a summary of your visits, and the ability to download your summaries to your computer or send the information securely to a physician. Remember that your healthcare information is confidential, so carefully consider who you will allow to register on the [facility] Patient Portal for access to your information. You can also access the [employer] Patient Portal on the [employer]. Simply click on Health Records under [employer] and then click on the [employer] logo. HOW TO SAFELY DISPOSE OF PRESCRIPTION MEDICATIONS Please use one of the following methods to safely dispose of your unused medications. 1.Use a drug disposal kit: the drug disposal pouch allows you to safely discard your old and unuseddrugs. Ask your nurse to give you one when you are discharged.2.Visit a local take-back location: Many local pharmacies and police departments have programs that collect old and unwanted prescriptiondrugs. Call your local pharmacy or go to http://[employer]/3X4Jx4v to find one close to you.3.Make use of household items: Use cat litter or old coffee grounds to dispose medications if other options arenot available. Mix your drugs with these household products, seal them in an airtight container andthrow it into the garbage. Call [facility]: [phone] to be sure your drugs can be disposed of in this way. Some medicines may require a different approach.4.Never flush your medications down the toilet. IF YOU HAVE BEEN PRESCRIBED AN OPIOIDS FOR PAIN If you have been prescribed an opioid (such as hydrocodone, oxycodone or morphine), it is critical to understand the possible side effects and risks of opioid pain medications. Even when taken as directed, opioids can have several side effects including: Tolerance, meaning you might need to take more of a medication for the same pain relief. Nausea, vomiting and/or constipation. Sleepiness, dizziness, dry mouth, confusion, depression or itching. Physical dependence, meaning you have withdrawal symptoms when a medication is stopped ? this can develop within a few days. KNOW YOUR RESPONSIBILITIES It is important to know exactly how much and how often to take the opioid pain medications you are prescribed. Never take opioids in higher amounts or more often than prescribed. Do not combine opioids with alcohol or other drugs that cause drowsiness, such as benzodiazepines, also known as benzos,including diazepam and alprazolam, muscle relaxants or sleep aids. Never sell or share prescriptionopioids. This is illegal. Store opioids in a secure place and out of reach of others (including children, family, friends and visitors). The last page(s) of this document has been signed and retained as a CHART COPY Signatures Patient Education Materials Post Op Wound Check, General Medication Leaflets My discharge plan and instructions have been reviewed and explained to me and I,MELODIE MEDRANO JR understand my current condition and have read and understand these discharge instructions. I have received a written copy of the plan/instructions. If I have questions, I am aware that I should contact my doctor. Patient/Nursing Aide Signature: Date/Time: Relationship to Patient: Witness Name/Signature: Date/Time: [facility]08-23-2024 Plan of care note* Plan of Care - Maricruz Candelario RN - 03/06/2024 1:34 PM EDT RG vitals, blood sugar, and pain monitored and managed today. Pt accu checks and insulin changed toACHS as his diet changed to carb controlled. Pt worked with surgical team on drain management following complications that occurred. ROSA MARIA sites monitored and managed for bleeding and suction ability. Pt given dose of Lovenox and educated on how to administer at home. Pt and spouse educated and shown how to monitor, manage, and empty ROSA MARIA's as well as s/s of infection. AVS reviewed with pt and spouse,all questions answered. 2 PIVs removed and pt transported to car by wheelchair with RN, no complications occurred. Problem: Adult Inpatient Plan of Care Goal: Plan of Care Review Outcome: Completed Goal: Patient-Specific Goal (Individualized) Outcome: Completed Goal: Absence of Hospital-Acquired Illness or Injury Outcome: Completed Goal: Optimal Comfort and Wellbeing Outcome: Completed Goal: Readiness for Transition of Care Outcome: Completed [facility]08-23-2024 Miscellaneous Notes* Plan of Care - Maricruz Candelario RN - 03/06/2024 1:34 PM EDT RG vitals, blood sugar, and pain monitored and managed today. Pt accu checks and insulin changed toACHS as his diet changed to carb controlled. Pt worked with surgical team on drain management following complications that occurred. ROSA MARIA sites monitored and managed for bleeding and suction ability. Pt given dose of Lovenox and educated on how to administer at home. Pt and spouse educated and shown how to monitor, manage, and empty ROSA MARIA's as well as s/s of infection. AVS reviewed with pt and spouse,all questions answered. 2 PIVs removed and pt transported to car by wheelchair with RN, no complications occurred. Problem: Adult Inpatient Plan of Care Goal: Plan of Care Review Outcome: Completed Goal: Patient-Specific Goal (Individualized) Outcome: Completed Goal: Absence of Hospital-Acquired Illness or Injury Outcome: Completed Goal: Optimal Comfort and Wellbeing Outcome: Completed Goal: Readiness for Transition of Care Outcome: Completed * Nursing Notes - Deborah Neves RN - 03/06/2024 11:42 AM Mark: Outpatient ES discharge planning note. 03/06/24 1142 Final Discharge Planning Discharge Disposition Home Services at Discharge Wound/drain CM/SW AVS Portion Completed Yes Additional Community Agency Name(s) no Plan Plan Planning for discharge to home today. Patient/Family In Agreement With Plan yes Plan Comments see notes. Transport Request Mode of Transfer Private Vehicle [facility] Inpatient PCRM Discharge Note Patient discussed in medical rounds for discharge to home today with ROSA MARIA drain x 2 in patient. The patient had an outpatient procedure and the medical team denies concerns about discharge planning. Services for Discharge No services anticipated for discharge. ROSA MARIA drains will remain in place at discharge. The patient will be provided with lab orders and instructions to arrive at a local hospital/lab on Saturday. Once blood work is completed, he will call Dr. Maurer's office to discuss Xarelto. Consults with Final Discharge Recommendations NA Lines/Tubes/Drains/Wounds/Supplies Dermabond. ROSA MARIA drain x 2-drain log uploaded to AVS. If drains produces <30 cc for 3 days he can call for early drain removal, otherwise will occur at time of follow up YVETTE hose Medications No barriers anticipated in obtaining discharge medications. No prior authorizations anticipated. Reconciliation of medications to be completed by the medical team. Per medical team, the patient will resume Lovenox (has some at home) until Dr. Maurer advises him toresume Xarelto. Durable Medical Equipment No new needs anticipated. Per nursing, the patient is getting up without difficulty. Choice Was Patient Choice Provided: N/A Transportation Transportation will be provided by family. Education Discharge education provided by the medical team and updated in the After Visit Summary. ROSA MARIA drain care. Follow Up(s) Any follow up requested by the medical team arranged. Appointments in the After Visit Summary. Future Appointments Date Time Provider Department Center 03/20/2024 2:15 PM MD ROE Kerr LAB WORK Follow up on 03/09/2024 Please arrive at a local lab on 03/09/24 for bloodwork and call into Dr. Maurer's office oncelabs are resulted to discuss resumption of Xarelto. Was Ambulatory PCRM added to the Care Team? No- Handoff criteria not met Was a handoff made to an Ambulatory PCRM? No The PCRM has updated the patient's nurse, Maricruz regarding the final discharge plan. Category Reference: Low: 0% - 5% Medium - Low: 5.1% - 10% Medium - High: 10.1% - 16% High: 16.1% - 100% Readmission Risk Interventions Documented: N/A No other discharge needs have been identified at this time. This plan was developed in collaboration with the patient and caregiver/preferred decision maker. Per medical team, Patient and family are in agreement with final discharge plan. Please refer to AVS and medical record for additional informa tion. Patient instructed to call with questions. PCRM will continue to follow with medical team forany additional discharge planning needs. Deborah Neves MSN, ACM-RN Patient Care Chef Teacher Pager# [phone] If any changes to this individualized plan of care during evening and weekend hours and assistance is needed, please page the director medical economics PCRM at [phone]. * Op Note - Trent Linda MD - 03/05/2024 6:25 PM EDT Preoperative diagnosis Penile Cancer Postoperative diagnosis Penile Cancer Procedure performed Robotic Bilateral Inguinofemoral Lymphadenectomy Attending surgeon Izaiah Maurer MD Highway Engineering Teacher Trent Crews PA-C , DIALYSIS CLINICAL MANAGER Anesthesia General Complications None EBL 20ml Findings Prior partial penectomy with several visible stitches (removed), no palpable lymphadenopathy with no evidence of gross pelvic or other distant metastases. Indications 68 y.o. 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 CT A/P with contrast 01/31/24 demonstrated no evidence of metastatic disease, however bilateral inguinal lymph nodes measuring up to 9mm on the left and 11mm on the right. Gi maegan the patient's staging and after a comprehensive discussion of the risks, benefits, and alternatives, the patient consented to proceed with bilateral da Stephon DV5 robot-assisted inguinofemoral lymphadenectomy. Procedure The patient was taken to the operating room and placed supine on the operating table. Pre-operativeantibiotics were administered. Bilateral lower extremity SCDs were placed. After induction of anesthesia the patient was positioned in the split leg frog leg position, and subsequently prepped and draped in a sterile fashion. A time-out was performed. Using a marking pen, the femoral triangle on each side was outlined. The relevant anatomy (inguinalligament, sartorius, adductor longus, femoral artery) was marked out with a marking pen on both legs prior to incision. The procedure was started on the right leg. A small incision was made on the anterior thigh approximately 5 cm superior to the knee. Scarpas fascia was swept away using a finger inserted into the incision and swept in a 360 degree fashion. Additional incisions were made, two additional 8mm robotic port incisions, one four finger breadths medial and one four finger breadths lateral to the initial port site. A 5 mm editorial assistant port incision was made laterally and slightly distalto the center camera port. Next, a direct vision tissue caponizer was inserted into the initial incision, placed underneath scarpas fascia, and inflated manually under direct vision with the laparoscopic camera to aid in blunt dissection of desired plane. A Weck [place] Balloon Port was placed in the center incision and the balloon was inflated to secure the port in place. At this point, the medial and lateral 8mm robotic trocars were placed as well as the 5 mm editorial assistant port which was connected to Airseal. An additional robotic port was placed through the balloon port. The Da Stephon DV5 robot was then docked. The fibrofatty tissue deep to scarpas fascia was dissected from the overlying skin and fascia usingbipolar electrocautery and bipolar vessel sealer exposing the underlying structures. Gentle retraction of adjacent tissues was performed. Attention was given to identifying the inguinal ligament as the proximal border of dissection. The medial border was the lateral edge of the adductor longus, thelateral border was the medial edge of the sartorius muscle. Dissected proceeded shallow to deep through the fascia zaynab with the goal of dissecting all lymph node bearing tissue off of the femoral vessels. Care was taken to avoid the femoral nerve throughout the dissection. Soft traction using the m aryland bipolar forceps was used to facilitate the removal of the lymph nodes. The lymphatic tissuewas placed in specimen retrieval bags (EndoCatch ). Insufflation pressure was reduced to 5mmHg and there was both excellent hemostasis and excellent control of lymphatics. The specimen was then extracted from the center camera incision with minimal extension needed to retreive the specimen. After the completion of the right side dissection and achieving hemostasis, the robot was then carefully undocked from the left side and repositioned to the right side. Attention was then turned to the left leg. Identical incisions and balloon dissection was carried out on this leg. After docking the robot, the same template excision was carried out on this side.On this side diligent attempts were made at preserving the saphenous vein, however, this was determinedto introduce excessive risk in this case and the saphenous vein was ligated with hem-o-loc clips and bipolar vessel sealer electrocautery. After securing the specimen, insufflation pressure was reduced to 5mmHg and there was both excellent hemostasis and excellent control of lymphatics. After the ports were removed and robot undocked, ROSA MARIA bulb drains were placed deep, one into each resection bed and passed out of the distal/medial most post site on each side. The larger sized extraction sites inboth legs were initially closed with interrupted 3-0 Vicryl deep dermal sutures, and were then closed using running subcuticular 4-0 Monocryl sutures. These were sutured into place with 0-silk drain stitches. All port sites were then closed with 4-0 Monocryl in an running subcuticular fashion, wounds and skin were cleaned with water soaked lap pads and then dried, Dermabond was applied to all incisions. Prior partial penectomy sutures still visible and bothersome to the patient were carefully removed. The patient's legs were wrapped with Kerlix followed by SHMUEL wrap up to the proximal thigh, taking care to include drain exit sites. The patient tolerated the procedure well and was extubated and transferred to PACU without issue. Izaiah Maurer MD was present in the procedure room the entire duration of the case. * Brief Op Note - Trent Linda MD - 03/05/2024 5:55 PM EDT Melodie Medrano Jr. ([id number]) PRE OPERATIVE DIAGNOSIS Malignant neoplasm of penis [C60.9] POST OPERATIVE DIAGNOSIS Malignant neoplasm of penis [C60.9] PROCEDURE PERFORMED Procedure(s) (LRB): LYMPHADENECTOMY INGUINOFEMORAL ROBOTIC (Bilateral) PRIMARY CLOSURE Yes INTRAOPERATIVE FINDINGS No significant abnormalities SURGEON Surgeons and Role: * Izaiah Maurer MD - Primary ANESTHESIOLOGIST Anesthesiologist: Quentin Beneditc MD; GATO Faulkner Agricultural Scientist Assisting: Ac Villalta MD SURGICAL STAFF General Farmer: Georgina Hardy RN Physician Highway Engineering Teacher: Chester Crews PA-C; Zuleima Solomon PA-C Relief General Farmer: Lissa Hamm RN Relief Scrub: Brittnee Becker; Yessenia Hoyt Scrub Person: Marjorie Lopez; Javon Lockhart RN Resident Assisting: Trent Linda MD COMPLICATIONS None ESTIMATED BLOOD LOSS 20 ml SPECIMENS ID Type Source Tests Collected by Time Destination 1 : Right Inguinal Lymph Nodes Permanent SURG PATH SURG PATH REQUEST Izaiah Maurer MD 03/05/2024 1504 2 : Left Inguinal Lymph Nodes Permanent SURG PATH SURG PATH REQUEST Izaiah Maurer MD 03/05/2024 1657 Trent Linda MD March 05, 2024 5:55 PM * Nursing Notes - Nick Montoya RN - 03/05/2024 5:51 PM EDT 180 Patient arrives in [facility] PACU from OR via gurney with side rails up x2 with HOB >30 degrees, accompanied by Agricultural Scientist Assisting: Ac Villalta MD. Patient placed on monitors, VSS. Report received from anesthesia. Patient assessed, see assessment. 1841 Dr. Vega bedside for sign out. 1929 Dr. Linda cleared labs. Aware that drain in Left leg is not holding suction, wasn't holding suction in OR. 2029 Report called to Misty MYERS on 2037 Patient discharged from [facility] PACU per protocol. Patient transported via gurney with side rails up x2 with HOB>30 degrees to room 1848 by Darin MYERS. Family called to patient's bedside. [facility]* Nursing Notes - Deborah Neves RN - 03/06/2024 11:42 AM EDTSummary: Outpatient ES discharge planning note. 03/06/24 1142 Final Discharge Planning Discharge Disposition Home Services at Discharge Wound/drain CM/SW AVS Portion Completed Yes Additional Community Agency Name(s) no Plan Plan Planning for discharge to home today. Patient/Family In Agreement With Plan yes Plan Comments see notes. Transport Request Mode of Transfer Private Vehicle [facility] PCRM Discharge Note Patient discussed in medical rounds for discharge to home today with ROSA MARIA drain x 2 in patient. The patient had an outpatient procedure and the medical team denies concerns about discharge planning. Services for Discharge No services anticipated for discharge. ROSA MARIA drains will remain in place at discharge. The patient will be provided with lab orders and instructions to arrive at a local hospital/lab on Saturday. Once blood work is completed, he will call Dr. Maurer's office to discuss Xarelto. Consults with Final Discharge Recommendations NA Lines/Tubes/Drains/Wounds/Supplies Dermabond. ROSA MARIA drain x 2-drain log uploaded to AVS. If drains produces <30 cc for 3 days he can call for early drain removal, otherwise will occur at time of follow up YVETTE hose Medications No barriers anticipated in obtaining discharge medications. No prior authorizations anticipated. Reconciliation of medications to be completed by the medical team. Per medical team, the patient will resume Lovenox (has some at home) until Dr. Maurer advises him toresume Ramosrelto. Durable Medical Equipment No new needs anticipated. Per nursing, the patient is getting up without difficulty. Choice Was Patient Choice Provided: N/A Transportation Transportation will be provided by family. Education Discharge education provided by the medical team and updated in the After Visit Summary. ROSA MARIA drain care. Follow Up(s) Any follow up requested by the medical team arranged. Appointments in the After Visit Summary. Future Appointments Date Time Provider Department Center 03/20/2024 2:15 PM MD ROE Kerr LAB WORK Follow up on 03/09/2024 Please arrive at a local lab on 03/09/24 for bloodwork and call into Dr. Maurer's office oncelabs are resulted to discuss resumption of Xarelto. Was Ambulatory PCRM added to the Care Team? No- Handoff criteria not met Was a handoff made to an Ambulatory PCRM? No The PCRM has updated the patient's nurse, [place] regarding the final discharge plan. Category Reference: Low: 0% - 5% Medium - Low: 5.1% - 10% Medium - High: 10.1% - 16% High: 16.1% - 100% Readmission Risk Interventions Documented: N/A No other discharge needs have been identified at this time. This plan was developed in collaboration with the patient and caregiver/preferred decision maker. Per medical team, Patient and family are in agreement with final discharge plan. Please refer to AVS and medical record for additional informa tion. Patient instructed to call with questions. PCRM will continue to follow with medical team forany additional discharge planning needs. DEON Rojas, ACM-RN Patient Care Chef Teacher Pager# [phone] If any changes to this individualized plan of care during evening and weekend hours and assistance is needed, please page the director medical economics PCRM at [phone]. [facility]08-23-2024 Hospital course Narrative* Oleg Hernandez MD - 03/06/2024 11:12 AM EDT Discharge Summary Name: Melodie Medrano Jr. Age: 58 y.o. Birthday: 1965 Admit Date: 03/05/2024 10:24 AM Discharge Date: 03/06/24 Discharge Time: 11:12 AM Discharge Unit: [id number] Admission Information Admitting Physician: Izaiah Maurer MD Discharge Information Discharge Physician: Izaiah Maurer MD Problem List Active Hospital Problems Diagnosis Penile cancer Resolved Hospital Problems No resolved problems to display. Brief Summary of Hospital Course for Discharge Summary: Melodie Medrano Jr. is a 58 y.o. male w/ a h/o of DVT/PE (mult s/p surgery or travel) on xarelto, DM, HTN, HLD, melanoma. He was taken to the OR on 03/05/24 for BL robotic assisted inguinofemoral lymphadenectomy. The patient tolerated the procedure well. His postoperative course was uncomplicated. Patient was started on IV fluids and weaned as tolerated. Diet was advanced as tolerated to a regular diet. Pain was initially controlled with IV pain medication and later transitioned to an oral regimen. Home medications have been resumed. Aaron catheter was removed on POD1 and the patient was able to void spontaneously with minimal PVR.The patient was discharged to home. The patient will be discharged to home. At time of discharge the patient was afebrile, hemodynamically stable, breathing comfortably, eating a regular diet with oral pain medication, voiding spontaneously, having bowel movements, and ambulating without difficulty. He will discharge on prophylactic lovenox. He will get local CBC at [facility] Saturday03/09/24 and call into clinic with results to determine timing of resumption of xarelto. He will follow up with Dr. Maurer on 03/20/24. All discharge instructions and follow up information are in the patient After Visit Summary. I have checked an OARRS report on this patient today and there is no/low risk with the prescribing of a controlled medication based on my review of the report. Summary of last selected lab results and date obtained: Lab Results Component Value Date WBC 12.15 (H) 03/06/2024 HGB 12.4 (L) 03/06/2024 HCT 36.1 (L) 03/06/2024 PLATELET 187 03/06/2024 MCV 87.4 03/06/2024 Lab Results Component Value Date SODIUM 133 (L) 03/06/2024 POTASSIUM 4.5 03/06/2024 CHLORIDE 102 03/06/2024 CO2 22 03/06/2024 BUN 15 03/06/2024 CREATSERUM 0.98 03/06/2024 GLUCOSE 198 (H) 03/06/2024 No results found for: ALT, TRANSFERASEA, AST, GGT, GAMMAGT, ALKPHOS, BILITOTAL, BILIDIRECT Brief Summary of Labs for Discharge Summary: Discharge Orders CBC,PLATELETS Current Outpatient Meds: Medication List for when you go home START taking these medications Morning Afternoon Evening Bedtime As Needed Acetaminophen 325 MG tablet Take 2 tablets by mouth every 4 hours for 7 days. Commonly known as: TYLENOL Last time this was given: 650 mg on March 06, 2024 10:01 AM Medical Compression Stockings MISC 1 Each by Unknown route daily. oxyCODONE 5 MG TABS Take 1 tablet by mouth every 6 hours as needed for Moderate Pain or Severe Pain for up to 14 days. Commonly known as: ROXICODONE For diagnoses: Malignant neoplasm of penis Last time this was given: 5 mg on March 05, 2024 10:39 PM Polyethylene glycol 17 g PACK packet Take 1 packet by mouth daily. Commonly known as: MIRALAX Sulfamethoxazole-trimethoprim 800-160 MG per tablet Take 1 tablet by mouth 2 times daily for 14 days. Commonly known as: BACTRIM DS CHANGE how you take these medications Morning Afternoon Evening Bedtime As Needed Enoxaparin Sodium 40 MG/0.4ML injection Inject 0.4 mL under the skin daily. Please perform injections as you were taught by your nursing team prior to your discharge from the hospital. Please stop after you have spoken to Dr. Maurer's office when you restart Xarelto. Commonly known as: LOVENOX What changed: The strength you have reported taking of this medication has changed additional instructions Xarelto 20 MG tablet HOLD this medication until you have your CBC results and spoken with your PCP. For diagnoses: 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, unspecified laterality What changed: The quantity you have reported taking of this medication has changed How you take your medication has changed How often you have reported taking this medication has changed additional instructions Generic drug: Rivaroxaban CONTINUE taking these medications Morning Afternoon Evening Bedtime As Needed amLODIPine 5 MG TABS Take 1-2 tablets by mouth daily. Commonly known as: NORVASC Last time this was given: 10 mg on March 06, 2024 8:36 AM cyanocobalamin 100 MCG TABS Take 1 tablet by mouth daily. Commonly known as: VITAMIN B12 lisinopril 30 MG TABS Take 1 tablet by mouth daily. Commonly known as: PRINIVIL metFORMIN-XR 500 MG tab XL Take 1 tablet by mouth 2 times daily. Commonly known as: GLUCOPHAGE-XR Metoprolol succinate 50 MG tablet XL Take 1 tablet by mouth daily. Commonly known as: TOPROL-XL Last time this was given: 50 mg on March 06, 2024 8:36 AM omega-3 acid ethyl esters 1 g CAPS Take 2 capsules by mouth 2 times daily. Commonly known as: LOVAZA QC TUMERIC COMPLEX PO Take by mouth. Rosuvastatin 10 MG TABS Take 1 tablet by mouth daily. Commonly known as: CRESTOR Last time this was given: 10 mg on March 06, 2024 8:36 AM Tamsulosin HCl 0.4 MG CAPS Take 1 capsule by mouth daily. Commonly known as: FLOMAX Last time this was given: 0.4 mg on March 06, 2024 8:36 AM Vitamin D 25 MCG (1000 UT) TABS Take 1 tablet by mouth daily. STOP taking these medications hydroCODone-acetaminophen 5-325 MG TABS Commonly known as: NORCO Follow-up: No follow-up provider specified. Upcoming Appointments (up to five)-Some appointments for [facility] outpatient clinics or diagnostic testing locations are not displayed below Provider Department Dept Phone 03/20/2024 2:15 PM Izaiah Maurer Division of Urological Surgery at [facility] Arrive at: Arrive to First Floor Registration [phone] documented in [facility] History of Present illness Narrative* Oleg Hernandez MD - 03/06/2024 7:09 AM EDT Urology Daily Progress Note Last 24 Hours Over the past 24 hours, notable events are listed below: 1 Day Post-Op The patient has remained HDS overnight, and vital signs within normal limits, on RA UOP: -/ [id number]/[id number]=2012 Drain: R -/= 115 L 0/0/0= 0 Last Bowel Movement: 03/05/24 Recent Labs 03/05/24 1102 03/05/24 1814 03/06/24 0035 WBC 5.09 10.83* 12.15* HGB 13.3* 12.6* 12.4* PLATELET 189 179 187 CREATSERUM 0.91 1.10 0.98 Subjective: Patient endorses their pain is well managed on current pain regimen.He denies flatus and Bms. Patient voiding through a aaron catheter. L drain was manipulated during AM rounds and reintroduced to suction. Drain was held in place with tegaderm. No fevers, chills, headache, chest pain, SOB, or pain/swelling in arms or legs. Physical Exam Gen: NAD Neuro: Aox4, CN II-XII grossly intact HEENT: NCAT CV: Hemodynamically normal, regular cardiac rhythm Chest: No increased work of breathing, normal chest rise, breathing comfortable on RA Abdominal: soft, non-tender, non-distended Ext: warm, no LE edema, BLE wrapped to mid thigh with SHMUEL bandage, SCDs on and in place, Right bulbto suction with clear SS fluid, left buld not to suction : Mild penoscrotal edema, aaron in place with clear yellow urine Laboratory Studies and Objective Data Temp: [97.6 F (36.4 C)-98.3 F (36.8 C)] 98.3 F (36.8 C) Pulse (Heart Rate): [60-87] 76 Resp Rate: [12-22] 16 BP: (125-145)/(62-88) 125/67 O2 Sat (%): [92 %-99 %] 94 % Weight: [108 kg (238 lb 3.2 oz)] 108 kg (238 lb 3.2 oz) Oxygen Therapy O2 Sat (%): 94 % O2 Device: room air Flow (L/min): 2 24 hour outputs: Intake/Output Summary (Last 24 hours) at 03/06/2024 0713 Last data filed at 03/06/2024 0602 Gross per 24 hour Intake 2524.13 ml Output 2730 ml Net -205.87 ml WBC/Hgb/Hct/Plts: 12.15/12.4/36.1/187 (03/06 35) Na/K+/Phos/Mg/Ca: 133/4.5/2.5/2.4/8.9 (03/06 35) Bun/Creat/Cl/CO2/Glucose: 15/0.98/102/22/198 (03/06 35-03/06 0550) Assessment/Plan Melodie Medrano Jr. is a 58 y.o. year old male has a past medical history of Diabetes mellitus, Essential hypertension, benign, Hyperlipidemia, Melanoma, Penile ca, and Pulmonary embolism. who is 1 Day Post-Op s/p Procedure(s) (LRB): LYMPHADENECTOMY INGUINOFEMORAL ROBOTIC (Bilateral) Today's Plan: > Secure drain placement > DC aaron with formal TOV - Nutrition: DIET REGULAR - IVF: LR @ 125/hr - Pain control: sched Tylenol, oxycodone 5 prn - Home meds: HOME:amlodipine, metoprolol, rosuvastatin, HELD: lisinopril, metformin, xarelto, LVX (Bridge to surgery from xarelto), MV/supplements - Consults: none - ID: ancef x 24 hours, can finish prior bactrim at discharge - Endo: SSI - GI: Maalox, colace, zofran, pepcid - Electrolytes: replete to goals, Mg >2.0, Phos >3.0, K>4.0, Ca >8.0 - Activity: OOB, ambulation encouraged - Prophylaxis: LVX, SCDs, IS, leg wraps - Lines: PIV, aaron, ROSA MARIA - Dispo: IRMA POD1 Complexity. Hyponatremia - Secondary to fluid shifts. Monitor. Any conditions listed below are present on admission unless otherwise specified. . Patient seen on rounds with the chief resident and will discuss with attending, Dr. Izaiah Maurer MD. Oleg Hernandez MD Urologic Surgery, PGY1 03/06/2024 7:13 AM Please page urology resident director medical economics in WebX if questions. The author of this note does not necessarily reflect the individual director medical economics. * Trent Linda MD - 03/06/2024 12:22 AM EDT UROLOGIC SURGERY POST-OPERATIVE CHECK Subjective: Melodie Medrano Jr. is a 58 y.o. male who is now status post Procedure(s) (LRB): LYMPHADENECTOMY INGUINOFEMORAL ROBOTIC (Bilateral) . The patient was evaluated after transport to the hospital floor. Patient reports that pain is well controlled. Denies fevers, chills, chest pain, SOB, N/V. The patient has a aaron draining clear urine and has not ambulated after surgery. Notable issues with left drain not draining with leakage around drain site. Objective: Vitals: BP 134/73 (BP Location: Left arm, BP Position: Lying) Pulse 84 Temp 98.2 F (36.8 C) (Oral) Resp 18 Ht 1.956 m (6' 5) Wt 108 kg (238 lb 3.2 oz) SpO2 95% BMI 28.25 kg/m Smoking Status Former Exam: GEN: Laying comfortably in bed, no acute distress. RESP: No increased work of breathing. CARD: Regular rate and rhythm via pulse. ABD: Soft, appropriately tender to palpation, non-distended. EXT: Bilateral lower extremities wrapped with kerlix and SHMUEL wrap, right krystina drain with straw andserosanguinous drainage. Left krystina drain not holding suction, serosanguinous drainage mildly saturating SHMUEL wrap/kerlix dressing. : partial penectomy with well healed, aaron in place with clear urine Removed drain stitch for better assessment of drain leakage site and attempted to improve drain functioning with tegaderm, CHG tegaderm, new biopatch without success. Placed new drain stitch with 2-0silk. After above noted that black dot of drain was outside patient and therefore will not functioncorrectly. Removed prior dressing that was mildly saturated and redressed left leg and thigh with clean kerlixand SHMUEL wrap. Assessment and Plan: Melodie Medrano Jr. is a 58 y.o. male who is now s/p Procedure(s) (LRB): LYMPHADENECTOMY INGUINOFEMORAL ROBOTIC (Bilateral) . The patient is recovering well post-operatively. >> Made NPO and ordered 1x dose of SQH (stopped LVX) in anticipation of possible IR drain replacement or OR replacement of drain. Added PT/INR - pain: tylenol, oxycodone, toradol - nausea: PRN zofran - diet: DIET NPO with meds - fluids: Lactated ringers 125 mL/hr at 03/05/24 2321 - DVT prophylaxis: SQH x 1 dose in anticipation, Bilateral legs wrapped in SHMUEL wrap, SCDs - encourage OOBAT and IS Trent Linda MD Urology, PGY-4 Pg#[id number] 03/06/2024 12:22 AM documented [facility] Postoperative evaluation and management note* Op Note - Trent Linda MD - 03/05/2024 6:25 PM EDT Preoperative diagnosis Penile Cancer Postoperative diagnosis Penile Cancer Procedure performed Robotic Bilateral Inguinofemoral Lymphadenectomy Attending surgeon Izaiah Maurer MD Highway Engineering Teacher Trent Crews PA-C , DIALYSIS CLINICAL MANAGER Anesthesia General Complications None EBL 20ml Findings Prior partial penectomy with several visible stitches (removed), no palpable lymphadenopathy with no evidence of gross pelvic or other distant metastases. Indications 68 y.o. 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 CT A/P with contrast 01/31/24 demonstrated no evidence of metastatic disease, however bilateral inguinal lymph nodes measuring up to 9mm on the left and 11mm on the right. Gi maegan the patient's staging and after a comprehensive discussion of the risks, benefits, and alternatives, the patient consented to proceed with bilateral da Stephon DV5 robot-assisted inguinofemoral lymphadenectomy. Procedure The patient was taken to the operating room and placed supine on the operating table. Pre-operativeantibiotics were administered. Bilateral lower extremity SCDs were placed. After induction of anesthesia the patient was positioned in the split leg frog leg position, and subsequently prepped and draped in a sterile fashion. A time-out was performed. Using a marking pen, the femoral triangle on each side was outlined. The relevant anatomy (inguinalligament, sartorius, adductor longus, femoral artery) was marked out with a marking pen on both legs prior to incision. The procedure was started on the right leg. A small incision was made on the anterior thigh approximately 5 cm superior to the knee. Scarpas fascia was swept away using a finger inserted into the incision and swept in a 360 degree fashion. Additional incisions were made, two additional 8mm robotic port incisions, one four finger breadths medial and one four finger breadths lateral to the initial port site. A 5 mm editorial assistant port incision was made laterally and slightly distalto the center camera port. Next, a direct vision tissue caponizer was inserted into the initial incision, placed underneath scarpas fascia, and inflated manually under direct vision with the laparoscopic camera to aid in blunt dissection of desired plane. A [employer] [place] Balloon Port was placed in the center incision and the balloon was inflated to secure the port in place. At this point, the medial and lateral 8mm robotic trocars were placed as well as the 5 mm editorial assistant port which was connected to [employer]. An additional robotic port was placed through the balloon port. The Appy Pie5 robot was then docked. The fibrofatty tissue deep to scarpas fascia was dissected from the overlying skin and fascia usingbipolar electrocautery and bipolar vessel sealer exposing the underlying structures. Gentle retraction of adjacent tissues was performed. Attention was given to identifying the inguinal ligament as the proximal border of dissection. The medial border was the lateral edge of the adductor longus, thelateral border was the medial edge of the sartorius muscle. Dissected proceeded shallow to deep through the fascia zaynab with the goal of dissecting all lymph node bearing tissue off of the femoral vessels. Care was taken to avoid the femoral nerve throughout the dissection. Soft traction using the m aryland bipolar forceps was used to facilitate the removal of the lymph nodes. The lymphatic tissuewas placed in specimen retrieval bags (EndoCatch ). Insufflation pressure was reduced to 5mmHg and there was both excellent hemostasis and excellent control of lymphatics. The specimen was then extracted from the center camera incision with minimal extension needed to retreive the specimen. After the completion of the right side dissection and achieving hemostasis, the robot was then carefully undocked from the left side and repositioned to the right side. Attention was then turned to the left leg. Identical incisions and balloon dissection was carried out on this leg. After docking the robot, the same template excision was carried out on this side.On this side diligent attempts were made at preserving the saphenous vein, however, this was determinedto introduce excessive risk in this case and the saphenous vein was ligated with hem-o-loc clips and bipolar vessel sealer electrocautery. After securing the specimen, insufflation pressure was reduced to 5mmHg and there was both excellent hemostasis and excellent control of lymphatics. After the ports were removed and robot undocked, ROSA MARIA bulb drains were placed deep, one into each resection bed and passed out of the distal/medial most post site on each side. The larger sized extraction sites inboth legs were initially closed with interrupted 3-0 Vicryl deep dermal sutures, and were then closed using running subcuticular 4-0 Monocryl sutures. These were sutured into place with 0-silk drain stitches. All port sites were then closed with 4-0 Monocryl in an running subcuticular fashion, wounds and skin were cleaned with water soaked lap pads and then dried, Dermabond was applied to all incisions. Prior partial penectomy sutures still visible and bothersome to the patient were carefully removed. The patient's legs were wrapped with Kerlix followed by SHMUEL wrap up to the proximal thigh, taking care to include drain exit sites. The patient tolerated the procedure well and was extubated and transferred to PACU without issue. Izaiah Maurer MD was present in the procedure room the entire duration of the case. [facility] Surgical operation note* Lissa Hamm RN - 03/05/2024 5:59 PM EDT Procedure End:1707 Family updated at 1515. PACU studio operations engineer in charge notified of 15 minutes to end time. Pt. transport to PACU via cart, on oxygen, in stable condition, side rails up x 2 with anesthesia and resident. Will visit PACU to see if receiving RN has any questions or issues with patient post surgery. [facility] Nurse Note* Lissa Hamm RN - 03/05/2024 5:59 PM EDT Procedure End:1707 Family updated at 1515. PACU studio operations engineer in charge notified of 15 minutes to end time. Pt. transport to PACU via cart, on oxygen, in stable condition, side rails up x 2 with anesthesia and resident. Will visit PACU to see if receiving RN has any questions or issues with patient post surgery. documented in this [facility] Surgery Postoperative evaluation and management note* Brief Op Note - Trent Linda MD - 03/05/2024 5:55 PM EDT Melodie Medrano ([id number]) PRE OPERATIVE DIAGNOSIS Malignant neoplasm of penis [C60.9] POST OPERATIVE DIAGNOSIS Malignant neoplasm of penis [C60.9] PROCEDURE PERFORMED Procedure(s) (LRB): LYMPHADENECTOMY INGUINOFEMORAL ROBOTIC (Bilateral) PRIMARY CLOSURE Yes INTRAOPERATIVE FINDINGS No significant abnormalities SURGEON Surgeons and Role: * Izaiah Maurer MD - Primary ANESTHESIOLOGIST Anesthesiologist: Quentin Benedict MD; GATO aFulkner Agricultural Scientist Assisting: Ac Villalta MD SURGICAL STAFF General Farmer: Georgina Hardy RN Physician Highway Engineering Teacher: Chester Crews PA-C; Zuleima Solomon PA-C Relief General Farmer: Lissa Hamm RN Relief Scrub: Brittnee Becker; Yessenia Hoyt Scrub Person: Marjorie Lopez; Javon Lockhart RN Resident Assisting: Trent Linda MD COMPLICATIONS None ESTIMATED BLOOD LOSS 20 ml SPECIMENS ID Type Source Tests Collected by Time Destination 1 : Right Inguinal Lymph Nodes Permanent SURG PATH SURG PATH REQUEST Izaiah Maurer MD 03/05/2024 1504 2 : Left Inguinal Lymph Nodes Permanent SURG PATH SURG PATH REQUEST Izaiah Maurer MD 03/05/2024 1657 Trent Linda MD March 05, 2024 5:55 PM [facility] Nurse Note* Nursing Notes - Nick Montoya RN - 03/05/2024 5:51 PM EDT 180 Patient arrives in [facility] PACU from OR via gurney with side rails up x2 with HOB >30 degrees, accompanied by Agricultural Scientist Assisting: Ac Villalta MD. Patient placed on monitors, VSS. Report received from anesthesia. Patient assessed, see assessment. 1841 Dr. Vega bedside for sign out. 1929 Dr. Linda cleared labs. Aware that drain in Left leg is not holding suction, wasn't holding suction in OR. 2029 Report called to Misty MYERS on 2037 Patient discharged from [facility] PACU per protocol. Patient transported via gurney with side rails up x2 with HOB>30 degrees to room 1848 by Darin MYERS. Family called to patient's bedside. [facility] History and physical note* Trent Linda MD - 03/05/2024 12:34 PM EDT Urology History + Physical Note Name: Melodie Medrano Jr. : 1965 Chief Complaint: No chief complaint on file. History of Present Illness + Other Histories History of Present Illness: Melodie Medrano Jr. is a 58 y.o. male with past medical history of pT3 penile cancer admitted to [facility] for: Operation: Procedure(s) (LRB): LYMPHADENECTOMY INGUINOFEMORAL ROBOTIC (Bilateral) Surgeon: Izaiah Maurer MD I have reviewed Melodie Medrano Jr. 's medical, surgical and other pertinent history, and I have updated the medication and allergy information in the computerized patient record. The patient denies any new fevers, chills, or chest pain. No nausea, vomiting or diarrhea. Denies new GH, LUTS, frequency or burning. Has had occasional frequency. Reports he has had recent UTI, had PCP get Ucx 02/25/24, patient reports he thinks also klebsiella pneumoniae, is on day 9 of 10 days, Bactrim DS BID. Did have ED visit last week for torn bicep on his right. No new other hospitalizations, diagnoses, medications since last visit. Last meal 9pm yesterday Took metoprolol and above antibiotic this morning. The patient reports taking lovenox, last took yesterday morning, as bridge from xarelto. They report no prior adverse reactions to anesthesia. Past Medical History: Past Medical History: Diagnosis Date Diabetes mellitus Essential hypertension, benign Hyperlipidemia Melanoma left rib cage Penile ca Pulmonary embolism Past Surgical History: Past Surgical History: Procedure Laterality Date AMPUTATION PENIS PARTIAL N/A 01/22/2024 Laterality: N/A; Surgeon: Izaiah Maurer MD; [facility] PERIOP ACL RECONSTRUCTION BACK SURGERY FOOT SURGERY Bilateral reconstructive OTHER SURGICAL Right undescended testicle VASECTOMY Allergies + Immunizations: No Known Allergies Immunization History Administered Date(s) Administered [id number] COVID-19 monovalent vaccine, mRNA, Moderna, 50 mcg/0.25 mL booster 09/08/2020, 10/06/2020 Medications: Current Facility-Administered Medications Medication Dose Route Frequency Provider Last Rate Last Admin ceFAZolin (ANCEF) 2 g in dextrose 100 mL premix IVPB 2 g Intravenous pasting machine offbearer to Procedure Trent Linda MD Lactated ringers IV solution Intravenous Continuous Trent Linda MD Scopolamine (TRANSDERM-SCOP) patch 1 patch 1 patch Transdermal Once Trent Linda MD 1 patchat 03/05/24 1204 And VERIFY LINKED PATCH PLACEMENT Other Q12H Trent Linda MD Social History: Social History Tobacco Use Smoking status: Former Types: Cigarettes Smokeless tobacco: Former Types: Chew Substance Use Topics Alcohol use: Yes Alcohol/week: 4.0 standard drinks of alcohol Types: 4 Shots of liquor per week Family History: His family history includes Aneurysm in his father; Cancer- Other in his father; Lung Cancer in hismaternal grandmother. He He indicated that his mother is alive. He indicated that his father is alive. He indicated that his maternal grandmother is . Noncontributory to the current problem. No FH of problems with anesthesia. Review of Systems Review of Systems: 04/27 systems reviewed and negative unless listed above. Physical Exam + Diagnostics (Labs, Imaging, Etc...) Physical Exam: BP 134/81 (BP Location: Right arm, BP Position: Lying) Pulse 60 Temp 98.2 F (36.8 C) (Oral) Resp 15 Ht 1.956 m (6' 5) Wt 108 kg (238 lb 3.2 oz) SpO2 97% BMI 28.25 kg/m Smoking StatusFormer Gen: A&O, NAD HEENT: NCAT, MMM Pulm: no increased work of breathing Cardiac: regular rate, 2+ radial pulses bilaterally Abd: soft, nontender, nondistended : deferred Extremities: no edema, no cyanosis Labs: Complete Blood Count: Recent Labs 03/05/24 1102 WBC 5.09 HCT 38.4* PLATELET 189 MCV 86.3 Labs-Diff: Lab Results Component Value Date RBCDISTRIBU 13.2 03/05/2024 PLATELET 189 03/05/2024 MPV 9.0 03/05/2024 Basic Metabolic Panel + Ca, Mg, P: Recent Labs 03/05/24 1102 SODIUM 133* POTASSIUM 5.0 CHLORIDE 105 CO2 18* BUN 15 CREATSERUM 0.91 GLUCOSE 168* Coags: Recent Labs 03/05/24 1102 PT 13.0 PTT 28.9 INR 1.0 Liver Function Testing: No results for input(s): BILITOTAL, BILIDIRECT, ALT, AST, ALKPHOS in the last 72 hours. Immunosuppressive Medications: No results found for: CYCLOSPORIN2, TACROLIMUS, SIROLIMUS, EVRLMSTRGH Cardiac Labs: No results for input(s): TROP, BNP in the last 72 hours. Imaging: No orders to display Assessment + Plan Assessment + Plan: Melodie Medrano Jr. is a 58 y.o. male with past medical history of pT3 penile cancer [facility] for: Operation: Procedure(s) (LRB): LYMPHADENECTOMY INGUINOFEMORAL ROBOTIC (Bilateral) Surgeon: Izaiah Maurer MD Patient is appropriate for OR today. Disposition: To OR today as planned Trent Linda MD Urology, PGY-4 Pg#[id number] 03/05/2024 12:34 PM [facility]08-22-2024 History and physical note* Trent Linda MD - 03/05/2024 12:34 PM EDT Urology History + Physical Note Name: Melodie Medrano Jr. : 1965 Chief Complaint: No chief complaint on file. History of Present Illness + Other Histories History of Present Illness: Melodie Medrano Jr. is a 58 y.o. male with past medical history of pT3 penile cancer admitted to [facility] for: Operation: Procedure(s) (LRB): LYMPHADENECTOMY INGUINOFEMORAL ROBOTIC (Bilateral) Surgeon: Izaiah Maurer MD I have reviewed Melodie Medrano Jr. 's medical, surgical and other pertinent history, and I have updated the medication and allergy information in the computerized patient record. The patient denies any new fevers, chills, or chest pain. No nausea, vomiting or diarrhea. Denies new GH, LUTS, frequency or burning. Has had occasional frequency. Reports he has had recent UTI, had PCP get Ucx 02/25/24, patient reports he thinks also klebsiella pneumoniae, is on day 9 of 10 days, Bactrim DS BID. Did have ED visit last week for torn bicep on his right. No new other hospitalizations, diagnoses, medications since last visit. Last meal 9pm yesterday Took metoprolol and above antibiotic this morning. The patient reports taking lovenox, last took yesterday morning, as bridge from xarelto. They report no prior adverse reactions to anesthesia. Past Medical History: Past Medical History: Diagnosis Date Diabetes mellitus Essential hypertension, benign Hyperlipidemia Melanoma left rib cage Penile ca Pulmonary embolism Past Surgical History: Past Surgical History: Procedure Laterality Date AMPUTATION PENIS PARTIAL N/A 01/22/2024 Laterality: N/A; Surgeon: Izaiah Maurer MD; [facility] RECONSTRUCTION BACK SURGERY FOOT SURGERY Bilateral reconstructive OTHER SURGICAL Right undescended testicle VASECTOMY Allergies + Immunizations: No Known Allergies Immunization History Administered Date(s) Administered [id number] COVID-19 monovalent vaccine, mRNA, Moderna, 50 mcg/0.25 mL booster 09/08/2020, 10/06/2020 Medications: Current Facility-Administered Medications Medication Dose Route Frequency Provider Last Rate Last Admin ceFAZolin (ANCEF) 2 g in dextrose 100 mL premix IVPB 2 g Intravenous pasting machine offbearer to Procedure Trent Linda MD Lactated ringers IV solution Intravenous Continuous Trent Linda MD Scopolamine (TRANSDERM-SCOP) patch 1 patch 1 patch Transdermal Once Trent Linda MD 1 patchat 03/05/24 1204 And VERIFY LINKED PATCH PLACEMENT Other Q12H Trent Linda MD Social History: Social History Tobacco Use Smoking status: Former Types: Cigarettes Smokeless tobacco: Former Types: Chew Substance Use Topics Alcohol use: Yes Alcohol/week: 4.0 standard drinks of alcohol Types: 4 Shots of liquor per week Family History: His family history includes Aneurysm in his father; Cancer- Other in his father; Lung Cancer in hismaternal grandmother. He He indicated that his mother is alive. He indicated that his father is alive. He indicated that his maternal grandmother is . Noncontributory to the current problem. No FH of problems with anesthesia. Review of Systems Review of Systems: 04/27 systems reviewed and negative unless listed above. Physical Exam + Diagnostics (Labs, Imaging, Etc...) Physical Exam: BP 134/81 (BP Location: Right arm, BP Position: Lying) Pulse 60 Temp 98.2 F (36.8 C) (Oral) Resp 15 Ht 1.956 m (6' 5) Wt 108 kg (238 lb 3.2 oz) SpO2 97% BMI 28.25 kg/m Smoking StatusFormer Gen: A&O, NAD HEENT: NCAT, MMM Pulm: no increased work of breathing Cardiac: regular rate, 2+ radial pulses bilaterally Abd: soft, nontender, nondistended : deferred Extremities: no edema, no cyanosis Labs: Complete Blood Count: Recent Labs 03/05/24 1102 WBC 5.09 HCT 38.4* PLATELET 189 MCV 86.3 Labs-Diff: Lab Results Component Value Date RBCDISTRIBU 13.2 03/05/2024 PLATELET 189 03/05/2024 MPV 9.0 03/05/2024 Basic Metabolic Panel + Ca, Mg, P: Recent Labs 03/05/24 1102 SODIUM 133* POTASSIUM 5.0 CHLORIDE 105 CO2 18* BUN 15 CREATSERUM 0.91 GLUCOSE 168* Coags: Recent Labs 03/05/24 1102 PT 13.0 PTT 28.9 INR 1.0 Liver Function Testing: No results for input(s): BILITOTAL, BILIDIRECT, ALT, AST, ALKPHOS in the last 72 hours. Immunosuppressive Medications: No results found for: CYCLOSPORIN2, TACROLIMUS, SIROLIMUS, EVRLMSTRGH Cardiac Labs: No results for input(s): TROP, BNP in the last 72 hours. Imaging: No orders to display Assessment + Plan Assessment + Plan: Melodie Medrano Jr. is a 58 y.o. male with past medical history of pT3 penile cancer admitted to [facility] for: Operation: Procedure(s) (LRB): LYMPHADENECTOMY INGUINOFEMORAL ROBOTIC (Bilateral) Surgeon: Izaiah Maurer MD Patient is appropriate for OR today. Disposition: To OR today as planned Trent Linda MD Urology, PGY-4 Pg#[id number] 03/05/2024 12:34 PM [facility] Discharge instructions* Discharge Instructions* Deborah Neves RN - 03/02/2024 2:20 PM EDT Images from the original note were not included. LAB WORK Next Steps: Follow up on 03/09/2024 Instructions: Please arrive at a local lab on 03/09/24 for bloodwork and call into Dr. Maurer's office once labs are resulted to discuss resumption of Xarelto. IMPORTANT: Automated Post Discharge Call Patient Information As part of your care, we will call you at the primary number we have on file, the day after you aredischarged at 9:30 a.m. to check on you. Please expect a two-minute automated telephone call from the hospital. This call will come from [phone]. If you are unable to answer or do not receive the automated call, please call [phone] to complete this important evaluation. By answering the phone evaluation, a [facility] nurse will be notified if you have any questions or concerns and call you back. If you have an immediate medical need call your doctor s office, or if you have a medical emergencycall 911. Your Crew Leader/Control Room Operator (PCRM) has arranged your appointments for follow up based on your preference of where you would like to continue your care. If you are unable to attend appointments that have been arranged for you, it is your responsibilityto call to reschedule at least 48 hours prior to the appointment date. Your After Visit Summary (AVS) has provided you with instructions for your discharge. It is your responsibility to ask questions if you have any. Please contact your medical care team at the numbers listed if you should have any additional questions. CONTACTS: EVENING/WEEKEND CONTACT For evening and weekend hours if you have urgent problems: Please call the office to speak with the after hours nurse, if no response, please call and ask the gridcap machine operator to page the Urology resident director medical economics. EMERGENCY For an emergency, call 911 DR MAURER'S OFFICE Hours: Saturday - Saturday 8:00am - 4:30 pm ADDITIONAL CONTACTS: If you have any questions about your discharge plan Saturday-Saturday between the hours of 7:30 am- 4:00 pm, please call : Deborah Rowley [phone] ADDITIONAL RESOURCES: For more information about your cancer diagnosis, treatment, and support, many resources are available: [email or web address] - [facility]: Call to request information or check hours. - [facility]: [facility]: or , or WWW.Simtrol. Additional resources in [facility] include the following: -THE [employer]: [facility] . -THE [facility]: National Resources: -[employer] (ACS), WWW.[email or web address].ORG [place] toll free #: 5-813-WZL-[facility]5 [place] toll free #: 9-650-BLZ-[place]. -NATIONAL COMPREHENSIVE CANCER NETWORK (NCCN) Ph: 841-054-HZZF Internet: WWW.NCCN.ORG - [facility] (NCI) Ph: 520-3-NUTRCC Internet: WWW.NCI.GOV. [facility] ([facility]): [phone]. Can help with medical supplies, equipment, food, medication assistance, transportation, wigs. [facility] only. [facility] (formerly [facility], [facility]): [phone]. Database of resources in [facility] that is not specific to people with cancer diagnosis. Can help with food, shelters, utility assistance,transportation, mental health. Rx for [place]: 2-599-Es-4-[place] or . Prescription assistance [facility] for [facility] Programs [facility] offers a wide range of programs to support patients, families and caregivers during and after cancer. These include support groups, educational classes, expressive arts programs, workshops, and special events. These programs provide help with healing and recovery. For more information, or to sign up for a group or program, you can visit [facility] website at [email or web address], email Con Santiago at [email or web address] or call one of the following: Con Santiago Department: [phone] The [facility] Line: [phone] or [phone] (toll free) Educational Classes and Workshops - Classes cover topics important to those who have been affected by cancer. Survivors learn about common problems related to treatment and recovery. They also receive information about how to improve their health and well-being. Classes are taught by clinical experts and include information and activities to help survivors live well, through and beyond cancer. Exercise Programs - Exercise can help with the side effects caused by cancer and cancer treatments.These side effects may include changes in flexibility, muscle tone and strength, energy, range of motion, balance, pain management and edema. Exercise programs shared in these classes can be adjustedbased on your level of fitness. Music-Based Services - Music-based services use music to help patients relax, express their feelings and cope with their illness. Board Certified Music Therapists may use a number of musical activities when working with a patient. These may include singing, listening to music, writing songs, playing instruments and looking at song lyrics. Art-Based Services - Art making can be a powerful way to process feelings related to a cancer diagnosis. It can deepen insight, provide inspiration, reduce stress and improve well-being. Services areoffered by a Board Certified Art Therapist. Mind, Body, Spirit Programs - These programs give survivors a chance to explore meditation, guided imagery, mindfulness and stress reduction skills to help cope with cancer. Nutrition Programs - Experts share information on nutrition and the connection between diet and cancer. Diets rich in plant-based foods can help lower your risk for cancer and is important for healthy survivorship. Families, Teens and Children - These programs are for children, between 5-18 years old, who have a loved one with cancer. Programs cover a variety of topics and offer a supportive and safe setting where families, teens and children can learn about cancer, talk about the challenges of a cancer diagnosis and learn coping skills. Young Adult Cancer Survivors - These programs are for young adult cancer survivors between the agesof 18-39. Programs focus on building peer connections with other young adult cancer survivors and developing healthy lifestyle practices that aid wellness and coping. Special Programs for Cancer Survivors - Special programs and events are held throughout the year for patients and their families. Conferences and activities during survivor and caregiver months are some of the programs offered to help survivors learn how to have the best health possible over the log turner. Support Groups - [facility] offers many support groups for both patients and their families. The groups are led by clinical experts. The groups available are: Adult Grief Blood and Marrow Transplant Brain Tumors Breast Cancer Caregiver Support Group Gastrointestinal Cancers General Cancers Hematology Leukemia and Lymphoma Living with Advanced Cancer Lung Cancer Melanoma Oral, Head and Neck Cancer Prostate Cancer Sarcoma Thyroid Cancer Additional Support Programs You may also watch [facility] programs and events by visiting our video library at go.[email or web address]. December 17, 2019. [facility] [place] and [employer]ie [employer] [place]. This handout is for informational purposes only. Talk with your doctor or health care team if you have any questions about your care. For more health information, call the Patient and Family Resource Center at [phone] or visit cancer.[email or web address]/[email or web address] Genitourinary () and Urology Support Group Second Saturday of every month 12:00p.m.-1:00p.m. Virtual This online group is open to individuals with renal, bladder, penile, urethral, and testicular and rare urology cancers. Group is available before, during and after treatment to share and connect with others who have similar health concerns. Facilitated by licensed professionals at [facility]. A one-time registration is required. To register, scan the QR code or visit [email or web address] Call [facility] at [phone] for more information. * Discharge Instr - Activity* Deborah Neves RN - 03/02/2024 2:19 PM EDT ACTIVITY -No lifting, pushing, or pulling over 10 lbs for 6 weeks -No driving for 1 week AND you are no longer taking narcotic pain medication. -You may shower in 48 hours. -Do not take tub bath, go swimming or use a hot tub until approved by your surgeon. * Discharge Instr - Diet* Deborah Neves RN - 03/02/2024 2:19 PM EDT Controlled Carbohydrate Diet This diet controls carbohydrate intake to help manage and maintain consistent blood glucose levels.Simple sugars are limited and carbohydrate intake is balanced throughout the day. Avoid adding saltto your food and use heart healthy fats such as canola or olive oil. * Discharge Instr - Notify* Deborah Neves RN - 03/02/2024 2:19 PM EDT NOTIFY PHYSICIAN: FEVER/CHILLS/FLU - Temperature greater than 100.4 degrees F and/or chills. - Signs of cold or flu. NAUSEA & VOMITING - Persistent nausea and vomiting - Inability to keep medication down - Inability to keep fluids down SYMPTOMS OF WOUND INFECTION - Increase in pain in or around wound. - Change in the amount of drainage. - Change in the color of drainage. - Change in the odor of drainage. - Warmth in the tissues around the wound. - Red streaks on the skin near the wound. - Fever - Incision separates/opens up SYMPTOMS OF DVT ( Deep Vein Thrombus, or Blood Clot) -Any Tender, Swollen, Or Reddened Areas From Your Groin To Your Heels -Numbness Or Tingling In Groin Or Calf -The Skin On Your Leg Looks Pale Or Blue Or It Feels Cold To Touch -Numbness Or Tingling In Groin Or Calf -Any Shortness Of Breath -Chest Pain SYMPTOMS OF UTI ( Urinary Tract Infection) - Urine That Is Cloudy And/Or Has Foul Odor - Urge To Urinate More Often - Burning Sensation - Fever - Incontinence - Blood In Urine UNRELIEVED PAIN - Increased or unrelieved pain * Discharge Instr - Wound Care* Deborah Neves RN - 03/02/2024 2:19 PM EDT Images from the original note were not included. INCISION CARE - Please clean it daily with mild soap and water. - Keep it dry for the rest of the day. - You do not need to cover your incision. - Watch for increasing redness, pus-like discharge or separation of the incision. - Do not let the shower stream hit the incision directly. ADHESIVE CLOSURE - Covering your incision is a clear transparent skin closure. It will remain in place for 10 to 14 days and wear off naturally. You should remove your post- operative dressing the day after yousurgery. - Do not soak your incision or take a tub bath for 2 weeks. - No further care is required unless you have a problem. -There are no vangie or sutures to be removed. It is not uncommon to have a little bruising. - Do not put any ointments on your incision unless instructed by your physician. ROSA MARIA Drain: Apply Dry Dressing Daily: Wash your hands well with soap and water before and after doing your dressing change. Follow your instructions and change the dressing around your tube each day or as needed to keep it dry. ROSA MARIA Drain Care: Empty, measure and record the amount of drainage twice daily, or more often, if needed. Call if drainage becomes foul-smelling. If you have two drains, chela drainage amounts for drain A and drain B. Change drainage tube dressing each day and anytime it is wet. Clean around the tube exit site as instructed, and apply a clean dressing. Gently squeeze drain tubing(s) starting near where it enters your skin and moving down the length of the tubing toward the drain collection device twice daily to keep clots loosened. Call if leakage of fluid persists from drainage tube exit site(s), and if you are not able to clearthe clots down tube. Call if drain will not hold suction. Wear an old belt into the shower and pin your drain container to it. Follow these steps to empty the ROSA MARIA drain: Wash your hands with soap and water. Dry your hands and put on clean gloves. Place a waterproof pad or towel under the ROSA MARIA drain to soak up any spills. Place the bulb lower thanthe wound to prevent fluid from going back into your body. Check the bulb for any holes or cracks. Remove the plug at one side of the bulb and pour the fluid into a measuring container. Do not touch the tip of the spout with the mouth of the collection cup or anything else. This keepsgerms from getting inside the bulb and tubing. Clean the plug with a cotton ball dipped in alcohol,or an alcohol swab. Squeeze the bulb tightly while the plug is still off. Do not squeeze the bulb if the plug is in place. While the bulb is being squeezed, put the plug back to seal the bulb. If you cannot squeeze it and plug it at the same time, ask someone for help. You may also place the bulb on a hard surface, such as a table. Use your elbow or hand to press down hard on the bulb, and then stick the plug in it. Measure the amount of fluid that came out of the ROSA MARIA drain bulb. Write down the amount, color, and odor of the fluid, and the date and time that you collected it. Use a piece of paper, a notebook, or ROSA MARIA drainage chart to keep track of this information. Flush the fluid down the toilet. Throw all used supplies in the trash bag along with your gloves. Wash your hands after you are finished Please record your drain output below and take to your follow-up appointments. Date Drain # Drain# Comments AM PM AM PM ml Color: ml Color: ml Color: ml Color: ml Color: ml Color: ml Color: ml Color: ml Color: ml Color: ml Color: ml Color: ml Color: ml Color: ml Color: ml Color: ml Color: ml Color: ml Color: ml Color: ml Color: ml Color: ml Color: ml Color: ml Color: ml Color: ml Color: ml Color: ml Color: ml Color: ml Color: ml Color: ml Color: ml Color: ml Color: ml Color: ml Color: ml Color: ml Color: ml Color: ml Color: ml Color: ml Color: ml Color: ml Color: ml Color: ml Color: ml Color: ml Color: ml Color: ml Color: ml Color: ml Color: ml Color: ml Color: ml Color: ml Color: ml Color: ml Color: ml Color: Please record your drain output below and take to your follow-up appointments. Date Drain # Drain# Comments AM PM AM PM ml Color: ml Color: ml Color: ml Color: ml Color: ml Color: ml Color: ml Color: ml Color: ml Color: ml Color: ml Color: ml Color: ml Color: ml Color: ml Color: ml Color: ml Color: ml Color: ml Color: ml Color: ml Color: ml Color: ml Color: ml Color: ml Color: ml Color: ml Color: ml Color: ml Color: ml Color: ml Color: ml Color: ml Color: ml Color: ml Color: ml Color: ml Color: ml Color: ml Color: ml Color: ml Color: ml Color: ml Color: ml Color: ml Color: ml Color: ml Color: ml Color: ml Color: ml Color: ml Color: ml Color: ml Color: ml Color: ml Color: ml Color: ml Color: ml Color: ml Color: Please record your drain output below and take to your follow-up appointments. Date Drain # Drain# Comments AM PM AM PM ml Color: ml Color: ml Color: ml Color: ml Color: ml Color: ml Color: ml Color: ml Color: ml Color: ml Color: ml Color: ml Color: ml Color: ml Color: ml Color: ml Color: ml Color: ml Color: ml Color: ml Color: ml Color: ml Color: ml Color: ml Color: ml Color: ml Color: ml Color: ml Color: ml Color: ml Color: ml Color: ml Color: ml Color: ml Color: ml Color: ml Color: ml Color: ml Color: ml Color: ml Color: ml Color: ml Color: ml Color: ml Color: ml Color: ml Color: ml Color: ml Color: ml Color: ml Color: ml Color: ml Color: ml Color: ml Color: ml Color: ml Color: ml Color: ml Color: ml Color: Please record your drain output below and take to your follow-up appointments. Date Drain # Drain# Comments AM PM AM PM ml Color: ml Color: ml Color: ml Color: ml Color: ml Color: ml Color: ml Color: ml Color: ml Color: ml Color: ml Color: ml Color: ml Color: ml Color: ml Color: ml Color: ml Color: ml Color: ml Color: ml Color: ml Color: ml Color: ml Color: ml Color: ml Color: ml Color: ml Color: ml Color: ml Color: ml Color: ml Color: ml Color: ml Color: ml Color: ml Color: ml Color: ml Color: ml Color: ml Color: ml Color: ml Color: ml Color: ml Color: ml Color: ml Color: ml Color: ml Color: ml Color: ml Color: ml Color: ml Color: ml Color: ml Color: ml Color: ml Color: ml Color: ml Color: ml Color: ml Color: Compression Device/TEDS Wear your YVETTE stockings as instructed to prevent blood clots and help your circulation. * Attachments The following attachments cannot be sent through Care Everywhere. * enoxaparin (Tanzanian) * Compression Stockings: General Info (Tanzanian) * Compression Stockings: How to Put [facility] ([facility] ([place] Discharge instructions Patient Education 02/27/2024 08:47:57 Muscle Strain, Extremity Muscle Strain in the Extremities A muscle strain is a stretching and tearing of muscle fibers. This causes pain, especially when youmove that muscle. There may also be some swelling and bruising. Home care Keep the hurt area raised above heart level to reduce pain and swelling. This is especially important during the first 48 hours. Apply an ice pack over the injured area for 15 to 20 minutes every 3 to 6 hours. You should do thisfor the first 24 to 48 hours. You can make an ice pack by filling a plastic bag that seals at the top with ice cubes and then wrapping it with a thin towel. Be careful not to injure your skin with the ice treatments. Ice should never be applied directly to skin. Continue the use of ice packs for relief of pain and swelling as needed. After 48 hours, apply heat (warm shower or warm bath) for 15 to20 minutes several times a day, or alternate ice and heat. You may use [id number] pain medicine to control pain, unless another medicine was prescribed.If you have chronic liver or kidney disease or ever had a stomach ulcer or gastrointestinal bleeding, talk with your healthcare provider before using these medicines. For leg strains: If crutches have been recommended, don t put full weight on the hurt leg until youcan do so without pain. You can return to sports when you are able to hop and run on the injured leg without pain. Follow-up care Follow up with your healthcare provider, or as advised. When to seek medical advice Call your healthcare provider right away if any of these occur: The toes of the injured leg become swollen, cold, blue, numb, or tingly Pain or swelling increases [id number] [employer]. [address] [place] [address], [place] [address]. All rights reserved. This information is not intended as a substitute for professional medical care. Always follow yourhealthcare professional's instructions. Follow Up Care 02/27/2024 07:59:34 With:CLEMENT DOWNS DO Orthopedic Address: [address] [place] [address], [facility] [address] [place] [address]- [phone] When:2-4 days [facility] Jose D 08-15-2024 Note Discharge Instructions Thank you for allowing [facility] to assist you with your healthcare needs. The following is importantdischarge information regarding your hospital visit. Diagnosis from Today's Visit Right biceps strain What to Do Next Instructions from Your Care Team There is concern that you could have a bicep tear or rupture. You will need to follow up with an orthopedist for further evaluation and treatment. Discharge Home Equipment - Ordered -- Sling, Arm Right, 99 month(s), 02/27/24 8:50:00 EDT Post Acute Orders No qualifying data available. You Need to Schedule the Following Appointments Follow Up with CLEMENT DOWNS DO Orthopedic When:Within 2-4 days Where:[address] [place] [address], [facility] [address] [place] [address] [phone] Allergies NKA Medications Please ask your primary doctor or pharmacist before taking any other medication not listed, including over the counter drugs, herbal medications, vitamins and or supplements as they may interact withyour home medications. What How Much When Why Instructions Last Dose Changed acetaminophen-hydrocodone (Halifax 325- 5 mg oral tablet) 1 tab(s) by mouth Every 6 hours as needed for as needed for pain Kidney stone Duration: 5 Days Changed acetaminophen-hydrocodone ([place] 325- 5 mg oral tablet) 1 tab(s) by mouth Every 6 hours as needed for for pain Right biceps strain Duration: 3 Days May take 1-2 tablets / dose Printed Prescription Unchanged amLODIPine (amLODIPine 5 mg oral tablet) 1 tab(s) by mouth Once a day If BP > 140 systolic or 90 diastolic on regular basis by increase to 10mg dosing Unchanged cyanocobalamin (Vitamin B12 1000 mcg oral tablet) 1 tab(s) by mouth Once a day Unchanged ergocalciferol (ergocalciferol 50,000 intl units (1.25 mg) oral capsule) 1 cap by mouth Every week Unchanged herbal/ nutritional product (turmeric 500 mg oral capsule) 1 cap by mouth Every day Unchanged lisinopril (lisinopril 30 mg oral tablet) 1 tab(s) by mouth Daily at bedtime Unchanged metFORMIN (MetFORMIN (Eqv-Glucophage XR) 500 mg oral tablet, EXTENDED RELEASE) 2 tab(s) by mouth Two (2) times a day Unchanged metoprolol (Metoprolol Succinate ER 50 mg oral TABLET extended release) 1 tab(s) by mouth Once a day Unchanged omega-3 polyunsaturated fatty acids ([place]-3 Fish Oil) by mouth Once a day Unchanged rivaroxaban (Xarelto 20 mg oral tablet) 1 tab(s) by mouth With supper Unchanged rosuvastatin (rosuvastatin 10 mg oral tablet) 1 tab(s) by mouth Once a day Unchanged sildenafil (sildenafil 25 mg oral tablet) 1 tab(s) by mouth Once a day Erectile dysfunction Can take up to 50mg. 1 hour before sexual activity Unchanged sulfamethoxazole-trimethoprim (Bactrim DS 800 mg-160 mg oral tablet) 1 tab(s) by mouth Every 12 hours Dysuria History of UTI Duration: 10 Days Unchanged tamsulosin (Flomax 0.4 mg oral capsule) 1 cap by mouth Once a day Kidney stone take until all stones pass, up to 4 weeks Please take this list to your next doctor s visit. Bring all medications you take, including over the counter medications, herbals and other supplements with you to your doctor s visit. Patients and families are reminded to discard old lists and to update any records with all medication providers or retail pharmacies. Education Materials Muscle Strain in the Extremities A muscle strain is a stretching and tearing of muscle fibers. This causes pain, especially when youmove that muscle. There may also be some swelling and bruising. Home care Keep the hurt area raised above heart level to reduce pain and swelling. This is especially important during the first 48 hours. Apply an ice pack over the injured area for 15 to 20 minutes every 3 to 6 hours. You should do thisfor the first 24 to 48 hours. You can make an ice pack by filling a plastic bag that seals at the top with ice cubes and then wrapping it with a thin towel. Be careful not to injure your skin with the ice treatments. Ice should never be applied directly to skin. Continue the use of ice packs for relief of pain and swelling as needed. After 48 hours, apply heat (warm shower or warm bath) for 15 to20 minutes several times a day, or alternate ice and heat. You may use [id number] pain medicine to control pain, unless another medicine was prescribed.If you have chronic liver or kidney disease or ever had a stomach ulcer or gastrointestinal bleeding, talk with your healthcare provider before using these medicines. For leg strains: If crutches have been recommended, don t put full weight on the hurt leg until youcan do so without pain. You can return to sports when you are able to hop and run on the injured leg without pain. Follow-up care Follow up with your healthcare provider, or as advised. When to seek medical advice Call your healthcare provider right away if any of these occur: The toes of the injured leg become swollen, cold, blue, numb, or tingly Pain or swelling increases [phone] [employer]. [address] [place] [address]. All rights reserved. This information is not intended as a substitute for professional medical care. Always follow yourhealthcare professional's instructions. Additional Information VACCINATE! IT SAVES LIVES! Members of the community who have not yet received the COVID-19 vaccine and would like to receive it can visit one of [facility] vaccine clinics. There are many vaccine clinic locations within the [facility]. For locations and available times, please visit www.[email or web address].[email or web address]/. It is important to note that some COVID mobile vaccine clinics are held outdoors and may be canceled in rainy or stormy conditions. To learn more about pediatric vaccinations (ages 5-11), we invite you to visit the [facility] webpage. [email or web address]/[email or web address] learn more about the COVID-19 vaccine, we invite you to visit the CDC website for a list of frequently asked questions. https://www.cdc.gov/coronavirus/2019-ncov/vaccines/faq.html [employer] Patient Portal Access Instructions: Stay connected with your healthcare team and access your personal medical information anytime with the [employer] Patient Portal. If you would like a full copy of your medical records please contact the [facility] Medical Records Department Saturday through Saturday between 8a.m. and 4:30p.m. Please follow the directions below to access the portal: 1.Access the email account you provided upon registration to the [facility].2.Look for an invitation email from [facility].3.Open the email and access the invitation link: Accept Invitation to [employer]4.Fill in the required ribeiro to create your account. Sign into [email or web address] with your username and password that you created in the above steps to stay up to date. You can then view a summary of results, a summary of your visits, and the ability to download your summaries to your computer or send the information securely to a physician. Remember that your healthcare information is confidential, so carefully consider who you will allow to register on the [facility] Patient Portal for access to your information. You can also access the [employer] Patient Portal on the [employer]. Simply click on Health Records under [employer] and then click on the [employer] logo. HOW TO SAFELY DISPOSE OF PRESCRIPTION MEDICATIONS Please use one of the following methods to safely dispose of your unused medications. 1.Use a drug disposal kit: the drug disposal pouch allows you to safely discard your old and unuseddrugs. Ask your nurse to give you one when you are discharged.2.Visit a local take-back location: Many local pharmacies and police departments have programs that collect old and unwanted prescriptiondrugs. Call your local pharmacy or go to http://[employer]/8C5Da6x to find one close to you.3.Make use of household items: Use cat litter or old coffee grounds to dispose medications if other options arenot available. Mix your drugs with these household products, seal them in an airtight container andthrow it into the garbage. Call [facility]: [phone] to be sure your drugs can be disposed of in this way. Some medicines may require a different approach.4.Never flush your medications down the toilet. IF YOU HAVE BEEN PRESCRIBED AN OPIOIDS FOR PAIN If you have been prescribed an opioid (such as hydrocodone, oxycodone or morphine), it is critical to understand the possible side effects and risks of opioid pain medications. Even when taken as directed, opioids can have several side effects including: Tolerance, meaning you might need to take more of a medication for the same pain relief. Nausea, vomiting and/or constipation. Sleepiness, dizziness, dry mouth, confusion, depression or itching. Physical dependence, meaning you have withdrawal symptoms when a medication is stopped ? this can develop within a few days. KNOW YOUR RESPONSIBILITIES It is important to know exactly how much and how often to take the opioid pain medications you are prescribed. Never take opioids in higher amounts or more often than prescribed. Do not combine opioids with alcohol or other drugs that cause drowsiness, such as benzodiazepines, also known as benzos,including diazepam and alprazolam, muscle relaxants or sleep aids. Never sell or share prescriptionopioids. This is illegal. Store opioids in a secure place and out of reach of others (including children, family, friends and visitors). The last page(s) of this document has been signed and retained as a CHART COPY Signatures Patient Education Materials Muscle Strain, Extremity Medication Leaflets My discharge plan and instructions have been reviewed and explained to me and I,MELODIE MEDRANO JR understand my current condition and have read and understand these discharge instructions. I have received a written copy of the plan/instructions. If I have questions, I am aware that I should contact my doctor. Patient/Nursing Aide Signature: Date/Time: Relationship to Patient: Witness Name/Signature: Date/Time: [facility]08-15-2024 Note ORIGINAL EXAMINATION: THREE XRAY VIEWS OF THE RIGHT ELBOW02/27/2024 8:27 am COMPARISON: None HISTORY: ORDERING SYSTEM PROVIDED HISTORY: Reason for Exam: pain FINDINGS: There is no acute displaced fracture or dislocation. There are small nondisplaced fragments at the ulnar aspect of the proximal ulna, which appear well corticated, likely remote. No evidence of elbow effusion. No aggressive osseous lesion. There is elbow enthesopathy. No radiopaque foreign body. IMPRESSION: No acute fracture or dislocation. Interpreted by: Sagrario Magdaleno DO Preliminary Report By: Sagrario Magdaleno DO Electronically signed By Sagrario Magdaleno DO Dictated Date: 02/27/2024 8:28:39 AM Prelim Date: 02/27/2024 8:30:50 AM Sign Date: 02/27/2024 8:30:50 AM [facility]ing [facility]. MICRO - Microbiology PROCEDURE: Urine Culture [*1] SOURCE: Urine, Clean Catch BODY SITE: COLLECTED DATE/TIME: 02/25/2024 16:11 EDT RECEIVED DATE/TIME: 02/25/2024 18:53 EDT START DATE/TIME: 02/25/2024 18:53 EDT FREE TEXT SOURCE: FINAL REPORTS Final Report [] Verified Date/Time/Personnel: 02/27/2024 07:40 EDT >100,000 cfu/ml Klebsiella pneumoniae PRELIMINARY REPORTS Preliminary Report [] Verified Date/Time/Personnel: 02/26/2024 11:40 EDT >100,000 cfu/ml Klebsiella pneumoniae ADEOLA to follow SUSCEPTIBILITY RESULTS Klebsiella pneumoniae Antibiotic ADEOLA Dilut ADEOLA Inter Ampicillin >16 Resistant Ampicillin/ <=4/2 Susceptible Sulbactam Aztreonam <=4 Susceptible Cefazolin <=2 Susceptible Ciprofloxacin <=0.25 Susceptible Ertapenem <=0.5 Susceptible Gentamicin <=2 Susceptible ID Panel Not Not Applicable Applicable Imipenem <=1 Susceptible Levofloxacin <=0.5 Susceptible Meropenem <=1 Susceptible Minocycline <=4 Susceptible Nitrofurantoin 64 Intermediate Piperacillin/ <=8 Susceptible Tazobactam Trimethoprim/ <=0.5/9.5 Susceptible Sulfa Performing Locations *1: This test was performed at: [facility], [address] [place] [address], [facility]02-05-[facility]24 Note. MICRO - Microbiology PROCEDURE: Urine Culture [O1 *1] SOURCE: Urine BODY SITE: COLLECTED DATE/TIME: 02/02/2024 00:28 EDT RECEIVED DATE/TIME: 02/02/2024 14:00 EDT START DATE/TIME: 02/02/2024 14:00 EDT FREE TEXT SOURCE: FINAL REPORTS Final Report [] Verified Date/Time/Personnel: 02/05/2024 08:09 EDT >100,000 cfu/ml Klebsiella pneumoniae >100,000 cfu/ml Klebsiella pneumoniae #2 PRELIMINARY REPORTS Preliminary Report [] Verified Date/Time/Personnel: 02/04/2024 13:16 EDT >100,000 cfu/ml Klebsiella pneumoniae >100,000 cfu/ml Klebsiella pneumoniae #2 ADEOLA to follow Preliminary Report [] Verified Date/Time/Personnel: 02/03/2024 13:21 EDT Culture results pending. SUSCEPTIBILITY RESULTS Klebsiella pneumoniae Antibiotic ADEOLA Dilut ADEOLA Inter Ampicillin >16 Resistant Ampicillin/ <=4/2 Susceptible Sulbactam Aztreonam <=4 Susceptible Cefazolin <=2 Susceptible Ciprofloxacin <=0.25 Susceptible Ertapenem <=0.5 Susceptible Gentamicin <=2 Susceptible ID Panel Not Not Applicable Applicable Imipenem <=1 Susceptible Levofloxacin <=0.5 Susceptible Meropenem <=1 Susceptible Minocycline <=4 Susceptible Nitrofurantoin 64 Intermediate Piperacillin/ <=8 Susceptible Tazobactam Trimethoprim/ <=0.5/9.5 Susceptible Sulfa Klebsiella pneumoniae #2 Antibiotic ADEOLA Dilut ADEOLA Inter Ampicillin >16 Resistant Ampicillin/ 8/4 Susceptible Sulbactam Aztreonam <=4 Susceptible Cefazolin <=2 Susceptible Ciprofloxacin <=0.25 Susceptible Ertapenem <=0.5 Susceptible Gentamicin <=2 Susceptible ID Panel Not Not Applicable Applicable Imipenem <=1 Susceptible Levofloxacin <=0.5 Susceptible Meropenem <=1 Susceptible Minocycline <=4 Susceptible Nitrofurantoin 64 Intermediate MICRO - Microbiology SUSCEPTIBILITY RESULTS Klebsiella pneumoniae #2 Antibiotic ADEOLA Dilut ADEOLA Inter Piperacillin/ <=8 Susceptible Tazobactam Trimethoprim/ <=0.5/9.5 Susceptible Sulfa Order Comments O1: Urine Culture Added by Discern Performing Locations *1: This test was performed at: [facility], [address] [place] [address], [id number] , [facility]02-02-2024 Hospital Discharge instructions Patient Education 02/02/2024 00:40:16 Urinary Tract Infections in Men Urinary Tract Infections in Men Urinary tract infections (UTIs) are most often caused by bacteria that invade the urinary tract. The bacteria may come from outside the body. Or they may travel from the skin outside of the rectum into the urethra. Pain in or around the urinary tract is a common symptom for most UTIs. But the only way to know for sure if you have a UTI is to have a urinalysis and urine culture. Types of UTIs Cystitis. This is a bladder infection. It is often linked to a blockage from an enlarged prostate. You may have an urgent or frequent need to urinate, and bloody urine. Treatment includes antibioticsand medicine to relax or shrink the prostate. Sometimes you will need surgery. Urethritis. This is an infection of the urethra. You may have a discharge from the urethra or burning when you urinate. You may also have pain in the urethra or penis. It is treated with antibiotics. Prostatitis. This is an inflammation or infection of the prostate. You may have an urgent or frequent need to urinate, fever, or burning when you urinate. Or you may have a tender prostate, or a vague feeling of pressure. Prostatitis is treated with a range of medicines, depending on the cause. Pyelonephritis. This is a kidney infection. If not treated, it can be serious and damage your kidneys. In severe cases you may need to stay in the hospital. You may have a fever and lower back pain. Medicines to treat a UTI Most UTIs are treated with antibiotics. These kill the bacteria. The length of time you need to take them depends on the type of infection. Take antibiotics exactly as directed until all of the medicine is gone. If you don't, the infection may not go away and may become harder to treat. For certaintypes of UTIs, you may be given other medicine to help treat your symptoms. Lifestyle changes to treat and prevent UTIs The lifestyle changes below will help get rid of your current infection. They may also help preventfuture UTIs. Drink plenty of fluids such as water, juice, or other caffeine-free drinks. This helps flush bacteria out of your system. Empty your bladder when you feel the urge to urinate and before going to sleep. Urine that stays inyour bladder promotes infection. Use condoms during sex. These help prevent UTIs caused by sexually transmitted bacteria. Keep follow-up appointments with your healthcare provider. He or she can may do tests to make sure the infection has cleared. If needed, more treatment can be started. Other treatments to prevent UTIs Most UTIs respond to medicine. But sometimes you will need a procedure or surgery. This can treat an enlarged prostate, or remove a kidney stone or other blockage. Surgery may also treat problems caused by scarring or long-term infections. [id number] [employer]. [address] [place] [address]. All rights reserved. This information is not intended as a substitute for professional medical care. Always follow yourhealthcare professional's instructions. Follow Up Care 02/01/2024 23:25:37 With:Follow up with primary care provider Address:Unknown When:2-4 days [facility] 07-21-2024 Note Discharge Instructions Thank you for allowing [facility] to assist you with your healthcare needs. The following is importantdischarge information regarding your hospital visit. Diagnosis from Today's Visit UTI - Urinary tract infection What to Do Next Instructions from Your Care Team IMPRESSION: 1. No acute intra-abdominal or pelvic process. 2. Punctate nonobstructive right renal stones. 3. Diverticulosis without diverticulitis. 4. Couple of peripherally calcified soft tissue densities adjacent to the sigmoid colon are most compatible with infarcted fat however attention on follow-up given diagnosis of malignancy. Please discus #4 above with your doctor No qualifying data available. Post Acute Orders No qualifying data available. You Need to Schedule the Following Appointments Follow Up with Follow up with primary care provider When:Within 2-4 days Allergies NKA Medications Please ask your primary doctor or pharmacist before taking any other medication not listed, including over the counter drugs, herbal medications, vitamins and or supplements as they may interact withyour home medications. What How Much When Why Instructions Last Dose New ciprofloxacin (Cipro 500 mg oral tablet) 1 tab(s) by mouth Every 12 hours Duration: 10 Days Printed Prescription Unchanged amLODIPine (amLODIPine 5 mg oral tablet) 1 tab(s) by mouth Once a day If BP > 140 systolic or 90 diastolic on regular basis by increase to 10mg dosing Unchanged cyanocobalamin (Vitamin B12 1000 mcg oral tablet) 1 tab(s) by mouth Once a day Unchanged ergocalciferol (ergocalciferol 50,000 intl units (1.25 mg) oral capsule) 1 cap by mouth Every week Unchanged herbal/ nutritional product (turmeric 500 mg oral capsule) 1 cap by mouth Every day Unchanged lisinopril (lisinopril 30 mg oral tablet) 1 tab(s) by mouth Daily at bedtime Unchanged metFORMIN (MetFORMIN (Eqv-Glucophage XR) 500 mg oral tablet, EXTENDED RELEASE) 2 tab(s) by mouth Two (2) times a day Duration: 90 Days 2 in am and 2 in pm Unchanged metoprolol (Metoprolol Succinate ER 50 mg oral TABLET extended release) 1 tab(s) by mouth Once a day Unchanged omega-3 polyunsaturated fatty acids ([place]-3 Fish Oil) by mouth Once a day Unchanged rivaroxaban (Xarelto 20 mg oral tablet) 1 tab(s) by mouth With supper Unchanged rosuvastatin (rosuvastatin 10 mg oral tablet) 1 tab(s) by mouth Once a day Unchanged sildenafil (sildenafil 25 mg oral tablet) 1 tab(s) by mouth Once a day Erectile dysfunction Can take up to 50mg. 1 hour before sexual activity Please take this list to your next doctor s visit. Bring all medications you take, including over the counter medications, herbals and other supplements with you to your doctor s visit. Patients and families are reminded to discard old lists and to update any records with all medication providers or retail pharmacies. Education Materials Urinary Tract Infections in Men Urinary tract infections (UTIs) are most often caused by bacteria that invade the urinary tract. The bacteria may come from outside the body. Or they may travel from the skin outside of the rectum into the urethra. Pain in or around the urinary tract is a common symptom for most UTIs. But the only way to know for sure if you have a UTI is to have a urinalysis and urine culture. Types of UTIs Cystitis. This is a bladder infection. It is often linked to a blockage from an enlarged prostate. You may have an urgent or frequent need to urinate, and bloody urine. Treatment includes antibioticsand medicine to relax or shrink the prostate. Sometimes you will need surgery. Urethritis. This is an infection of the urethra. You may have a discharge from the urethra or burning when you urinate. You may also have pain in the urethra or penis. It is treated with antibiotics. Prostatitis. This is an inflammation or infection of the prostate. You may have an urgent or frequent need to urinate, fever, or burning when you urinate. Or you may have a tender prostate, or a vague feeling of pressure. Prostatitis is treated with a range of medicines, depending on the cause. Pyelonephritis. This is a kidney infection. If not treated, it can be serious and damage your kidneys. In severe cases you may need to stay in the hospital. You may have a fever and lower back pain. Medicines to treat a UTI Most UTIs are treated with antibiotics. These kill the bacteria. The length of time you need to take them depends on the type of infection. Take antibiotics exactly as directed until all of the medicine is gone. If you don't, the infection may not go away and may become harder to treat. For certaintypes of UTIs, you may be given other medicine to help treat your symptoms. Lifestyle changes to treat and prevent UTIs The lifestyle changes below will help get rid of your current infection. They may also help preventfuture UTIs. Drink plenty of fluids such as water, juice, or other caffeine-free drinks. This helps flush bacteria out of your system. Empty your bladder when you feel the urge to urinate and before going to sleep. Urine that stays inyour bladder promotes infection. Use condoms during sex. These help prevent UTIs caused by sexually transmitted bacteria. Keep follow-up appointments with your healthcare provider. He or she can may do tests to make sure the infection has cleared. If needed, more treatment can be started. Other treatments to prevent UTIs Most UTIs respond to medicine. But sometimes you will need a procedure or surgery. This can treat an enlarged prostate, or remove a kidney stone or other blockage. Surgery may also treat problems caused by scarring or long-term infections. [id number] [employer]. [address] [place] [address], [place] [address]. All rights reserved. This information is not intended as a substitute for professional medical care. Always follow yourhealthcare professional's instructions. Additional Information VACCINATE! IT SAVES LIVES! Members of the community who have not yet received the COVID-19 vaccine and would like to receive it can visit one of [facility] vaccine clinics. There are many vaccine clinic locations within the [facility]. For locations and available times, please visit www.[email or web address].[place].gov/. It is important to note that some COVID mobile vaccine clinics are held outdoors and may be canceled in rainy or stormy conditions. To learn more about pediatric vaccinations (ages 5-11), we invite you to visit the [facility] webpage. https://www.[email or web address].org/pages/[email or web address]-[email or web address] stions.htmlTo learn more about the COVID-19 vaccine, we invite you to visit the CDC website for a list of frequently asked questions. https://www.cdc.gov/coronavirus/2019-ncov/vaccines/faq.html [employer] Patient Portal Access Instructions: Stay connected with your healthcare team and access your personal medical information anytime with the [employer] Patient Portal. If you would like a full copy of your medical records please contact the [facility] Medical Records Department Saturday through Saturday between 8a.m. and 4:30p.m. Please follow the directions below to access the portal: 1.Access the email account you provided upon registration to the hospital.2.Look for an invitation email from [facility].3.Open the email and access the invitation link: Accept Invitation to [employer]4.Fill in the required ribeiro to create your account. Sign into [email or web address] with your username and password that you created in the above steps to stay up to date. You can then view a summary of results, a summary of your visits, and the ability to download your summaries to your computer or send the information securely to a physician. Remember that your healthcare information is confidential, so carefully consider who you will allow to register on the [employer] Patient Portal for access to your information. You can also access the [employer] Patient Portal on the [employer]. Simply click on Health Records under [employer] and then click on the [employer] logo. HOW TO SAFELY DISPOSE OF PRESCRIPTION MEDICATIONS Please use one of the following methods to safely dispose of your unused medications. 1.Use a drug disposal kit: the drug disposal pouch allows you to safely discard your old and unuseddrugs. Ask your nurse to give you one when you are discharged.2.Visit a local take-back location: Many local pharmacies and police departments have programs that collect old and unwanted prescriptiondrugs. Call your local pharmacy or go to http://[employer]/7J6Zf1k to find one close to you.3.Make use of household items: Use cat litter or old coffee grounds to dispose medications if other options arenot available. Mix your drugs with these household products, seal them in an airtight container andthrow it into the garbage. Call [facility]: [phone] to be sure your drugs can be disposed of in this way. Some medicines may require a different approach.4.Never flush your medications down the toilet. IF YOU HAVE BEEN PRESCRIBED AN OPIOIDS FOR PAIN If you have been prescribed an opioid (such as hydrocodone, oxycodone or morphine), it is critical to understand the possible side effects and risks of opioid pain medications. Even when taken as directed, opioids can have several side effects including: Tolerance, meaning you might need to take more of a medication for the same pain relief. Nausea, vomiting and/or constipation. Sleepiness, dizziness, dry mouth, confusion, depression or itching. Physical dependence, meaning you have withdrawal symptoms when a medication is stopped ? this can develop within a few days. KNOW YOUR RESPONSIBILITIES It is important to know exactly how much and how often to take the opioid pain medications you are prescribed. Never take opioids in higher amounts or more often than prescribed. Do not combine opioids with alcohol or other drugs that cause drowsiness, such as benzodiazepines, also known as benzos,including diazepam and alprazolam, muscle relaxants or sleep aids. Never sell or share prescriptionopioids. This is illegal. Store opioids in a secure place and out of reach of others (including children, family, friends and visitors). The last page(s) of this document has been signed and retained as a CHART COPY Signatures Patient Education Materials Urinary Tract Infections in Men Medication Leaflets My discharge plan and instructions have been reviewed and explained to me and I,MELODIE MEDRANO JR understand my current condition and have read and understand these discharge instructions. I have received a written copy of the plan/instructions. If I have questions, I am aware that I should contact my doctor. Patient/Nursing Aide Signature: Date/Time: Relationship to Patient: Witness Name/Signature: Date/Time: [facility] [id number] Note ORIGINAL EXAMINATION: CT OF THE ABDOMEN AND PELVIS WITHOUT CONTRAST 02/02/2024 12:24 am TECHNIQUE: CT of the abdomen and pelvis was performed without the administration of intravenous contrast. Multiplanar reformatted images are provided for review. Automated exposure control, iterative reconstruction, and/or weight based adjustment of the mA/kV was utilized to reduce the radiation dose to as low as reasonably achievable. COMPARISON: None. HISTORY: ORDERING SYSTEM PROVIDED HISTORY: Reason for Exam: abdominal pain FINDINGS: Lower Chest: Normal heart size. Coronary calcifications and stents. Atelectasis in the lung bases. No focal consolidation or pleural effusion. Organs: The liver and biliary tract appears normal. The spleen appears normal. The pancreas demonstrates atrophy. The adrenal glands appear normal. Punctate nonobstructive stones in the right kidney. No left-sided stone seen. No hydronephrosis. Nonspecific perinephric stranding bilaterally. GI/Bowel: There is diverticulosis without diverticulitis. Couple of peripherally calcified soft tissue densities adjacent to the sigmoid colon are most compatible with infarcted fat however attention on follow-up given diagnosis of malignancy. There is no evidence of obstruction. The appendix is normal. Pelvis: The pelvic organs appear normal. Peritoneum/Retroperitoneum: There is no intraperitoneal free air or ascites. Atherosclerosis of the aorta and major branches without aneurysm is noted. No lymphadenopathy is identified. Bones/Soft Tissues: Degenerative changes are noted in the spine. No focal soft tissue abnormality is identified. IMPRESSION: 1. No acute intra-abdominal or pelvic process. 2. Punctate nonobstructive right renal stones. 3. Diverticulosis without diverticulitis. 4. Couple of peripherally calcified soft tissue densities adjacent to the sigmoid colon are most compatible with infarcted fat however attention on follow-up given diagnosis of malignancy. Interpreted by: Christian Mendez Preliminary Report By: Christian Mendez Electronically signed By Christian Mendez Dictated Date: 02/02/2024 12:25:28 AM Prelim Date: 02/02/2024 12:30:25 AM Sign Date: 02/02/2024 12:30:25 AM [facility]ing [facility] History of Present illness Narrative* Rebeca Kim, CODING EDUCATOR-MIXER ATTENDANT - 01/31/2024 11:45 AM EDT Images from the original note were not included. HPI Melodie Medrano Bill is a 58 y.o. 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 Patient first presented to local tobacco sizer in January 2021 with an itchy scaly lesion on the undersurface of his penis. On 02/09/21 he underwent a shave biopsy for well-differentiated squamous cell carcinoma. That was then follow up with a MOHS procedure in 03/24/2021. 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 On 06/28/23 the underwent another excision of invasive well-differentiated squamous cell carcinoma, -SM, pT1 NxMx. Patent referred by Dr.Mansour Cantor local medical oncologist. 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 On valium for controlling nighttime erections. Pathology 06/28/23 04/28/23 ECOG Performance Status Performance status: Karnofsky scale 100 (ECOG grade 0) No limitations Past Medical History He has a past medical history of Diabetes mellitus, Essential hypertension, benign, Hyperlipidemia,Melanoma, Penile ca, and Pulmonary embolism. Past Surgical History He has a past surgical history that includes acl reconstruction; foot surgery (Bilateral); vasectomy; back surgery; other surgical (Right); and amputation penis partial (N/A, 01/22/2024). Medications He has a current medication list which includes the following prescription(s): amlodipine, vitamin d, cyanocobalamin, lisinopril, metformin-xr, metoprolol succinate, omega-3 acid ethyl esters, rosuvastatin, turmeric, xarelto, acetaminophen, clobetasol, diazepam, enoxaparin sodium, lidocaine-prilocaine, and oxycodone. Allergies He has No Known Allergies. Social History He reports that he has quit smoking. His smoking use included cigarettes. He has quit using smokeless tobacco. His smokeless tobacco use included chew. He reports current alcohol use of about 4.0 standard drinks of alcohol per week. He reports that he does not use drugs. Family History He family history includes Aneurysm in his father; Cancer- Other in his father; Lung Cancer in his maternal grandmother. Review of Systems Constitutional: No fevers or chills Skin: Negative for rash Endocrine: No heat/cold intolerance Cardiovascular: Negative for chest pain or dyspnea on exertion Respiratory: Negative for shortness of breath or wheezing Gastrointestinal: No constipation, nausea or vomiting Genitourinary: As in HPI Musculoskeletal: No new joint pain, + chronic foot pain Neurological: Negative for frequent headaches or dizziness Lymph/Heme: Negative for leg swelling or calf pain. Diagnostic Tests None currently No results found for: WBC, WBCCOUNT, WBCFETAL, HGB, HCT, PLATELET, MCV Lab Results Component Value Date CREATSERUM 0.88 11/29/2023 Lab Results Component Value Date LEUKOCESTUR Large (A) 01/29/2024 NITRITE Negative 01/29/2024 PROTEIN >=300 mg/dL (A) 01/29/2024 UPH 5.5 01/29/2024 BLOOD Large (A) 01/29/2024 SPECIFICGRAV 1.010 01/29/2024 KETONES Negative 01/29/2024 GLUCOSE 100 mg/dL (A) 01/29/[address] ABD/PLV - today pending final read CT ABDOMEN/PELVIS WITH CONTRAST, 11/29/2023 IMPRESSION: 1. Left inguinal lymph node with enhancing nodule in its cortex, does not meet criteria for lymphadenopathy, however raises some concern. Consider targeted ultrasound. No intra-abdominal/pelvic lymphadenopathy by size criteria. 2. Hepatic steatosis. No suspicious liver lesion. 3. Colonic diverticulosis without evidence for diverticulitis. 4. Mild prostatomegaly. Assessment Melodie Medrano Jr. is a 58 y.o. 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 Patient s/p partial penectomy 01/22/24 Interval History Doing well ROS Complete review of systems was conducted with pertinent positives and negatives detailed above. PE Constitutional: No apparent distress HEENT: Conjunctivae normal no visible neck nodes or pathology Cardiovascular: Looks well perfused Pulmonary/Chest: Respirations are even and non-labored Abdominal: Without distension Neurological: Alert and oriented, normal posturet Psych: Mood and affect within normal limits Extremities: Movement of all extremities, no cyanosis Skin: No relevant abnormalities in visualized areas Phallus healing well. A&P We spoke about his recovery. He is healing appropriately. Path pending Izaiah Maurer MD Certified Composites Technician of Urologic Surgery Division of Urologic Oncology [facility] History of Present illness Narrative* Maria R Diaz RN - 01/29/2024 11:00 AM EDT Patient complained of fever last night of 102 F. On arrival to clinic patient negative for fever 98F. Notified Zuleima SHIPPING CLERK/ADMIN of patients fever. Having regular bowel movements. Patient educated on process of voiding trial. 60 ml sterile water instilled into bladder via aaron. Removed 10 ml catheter balloon and aaron catheter was removed per protocol. Patient voided 90 ml pink(color) urine. Urine sent for culture and analysis per Zuleima SHIPPING CLERK/ADMIN. 5 ml residual per bladder scan. Patient tolerated well. Educated patient on Kegel Exercises and expected urinary leakage. Provided patient with incontinence pad. All questions answered. [facility] Surgical operation note* Maria R Townsend RN - 01/22/2024 2:49 PM EDT Patient meets ASU discharge criteria and discharged per MD order to home. Patient taken by wheelchair by Yeimi MYERS to awaiting car. All belongings gathered with patient. Family/friend to drive patienthome and care for patient 24 hours post-op. [facility] Nurse Note* Maria R Townsend RN - 01/22/2024 2:49 PM EDT Patient meets ASU discharge criteria and discharged per MD order to home. Patient taken by wheelchair by Yeimi MYERS to awaiting car. All belongings gathered with patient. Family/friend to drive patienthome and care for patient 24 hours post-op. * Juan Luis Quinteros RN - 01/22/2024 10:36 AM EDT 1040 Family notified of surgery start 1057 Hand-off report sent to PACU charge nurse 1135 PACU given notice of arrival 1154 Patient extubated and transported to PACU with anesthesia at bedside on oxygen inhalation. [facility] Nurse Note* Nursing Notes - Romy Salinas RN - 01/22/2024 2:10 PM EDT 1324 : Patient arrived to [facility] ASU from [facility] PACU via gurney. Vital signs taken and stable. Patient given drink and snacks. Family called to bedside. Patient assessed. 1335 : Patient and family member given copy of AVS, all prescriptions, and supplies. Patient and family member present for discharge teaching. All questions answered at this time. IV removed per policy. [facility] Miscellaneous Notes* Nursing Notes - Romy Salinas RN - 01/22/2024 2:10 PM EDT 1324 : Patient arrived to [facility] ASU from [facility] PACU via gurney. Vital signs taken and stable. Patient given drink and snacks. Family called to bedside. Patient assessed. 1335 : Patient and family member given copy of AVS, all prescriptions, and supplies. Patient and family member present for discharge teaching. All questions answered at this time. IV removed per policy. * Nursing Notes - Lauren Roth RN - 01/22/2024 8:56 AM EDT Patient denies hx of chemo and radiation. Patient has metal in bilateral feet. Patient denies any other metal or foreign objects in body. Patient denies hx of seizure or stroke. [facility] Hospital Discharge instructions* Discharge Instructions* Adolfo Calvert MD - 01/22/2024 12:09 PM EDT Images from the original note were not included. Home Care After Partial Penectomy The following instructions will help you care for yourself, or be cared for upon your return home today after surgery. Medications: You should take Lovenox injections ton, , and Saturday evening. You may resume your Xarelto on Saturday01/25/24. Activity Limit your activity for the first 5 days after surgery to light activity. Limit lifting, pushing or pulling to less than 20 pounds for the next two weeks Also limit running and long walks. Bathing or showering You may shower 48 to 72 hours after surgery. Allow the water to wash over the incision but do not scrub the incision. Dry the site gently by patting it with a clean towel. NO tub baths or swimming for 14 days after surgery. Incision Care Keep the penile dressing wrap in place for the next two days. Expect a small amount of blood may stain the dressings for up to 72 hours after surgery. For the first few days, apply two or three gauze pads to the site each day and as needed to keep the dressing dry. This will protect the incision and help keep your clothes clean. When you are no longer having any drainage, stop using the gauze pads over the site. Stitches will dissolve and do not need to be removed. Aaron Catheter -See instructions regarding aaron catheter -You will be scheduled for aaron removal in Dr. Maurer's office in 1 week Anesthesia Precautions & Expectations After anesthesia, rest for [address], drink alcoholic beverages or make any important decisions during this time. These symptoms can last for one or two days. Swelling Is Expected After Surgery Penile swelling from the surgery may take weeks to get better. You should call your doctor if the swelling is severe. Use ice packs to the scrotum and penis for 15 minutes every hour for the first 48 hours when you are awake to limit swelling. Use a plastic bag with ice or a bag of frozen peas for the ice pack. Wrap a cloth or towel around the ice pack so the ice does not directly touch your skin. Wear a jock strap or tight underwear for the next week to support your scrotum and reduce swelling. Sexual activity May begin when you are comfortable and all the stitches have dissolved. Pain control You will likely be sent home with a prescription for a few days of pain medicine. Use this only as needed. After 48 hours, most patients can take extra strength Tylenol (acetaminophen) or Advil (ibuprofen) for pain, following the label directions. Pain most often is eased after 5 to 7 days. Call your Doctor Severe swelling larger than the size of an orange. A large amount of fluid drainage that soaks several pads per day that is not controlled with pain medicine and use of ice packs. Any signs of infection such as: - Increased redness or tenderness around the incision site - Pus type drainage from the incision - Fever of greater than 100.5 degrees F Other Contacts Urology Department Follow up Appointment You will follow up in 2-3 weeks for Pathology review. After hours and on weekends, if you have questions or problems, call [phone] and ask the hospital gridcap machine operator to page the urology resident director medical economics. If it is a question or problem that can wait until business hours, call the clinic phone number listed above when the clinic is open during weekdays, 8am-4pm. If you are unable to reach your doctor and it is a medical emergency call the [facility] at or dial 911. * Attachments The following attachments cannot be sent through Care Everywhere. * Home Care for Aaron Catheter: [facility] ([facility]) ([place]anz[place]) [facility] Nurse Surgical operation note* Juan Luis Quinteros RN - 01/22/2024 10:36 AM EDT 1040 Family notified of surgery start 1057 Hand-off report sent to PACU charge nurse 1135 PACU given notice of arrival 1154 Patient extubated and transported to PACU with anesthesia at bedside on oxygen inhalation. [facility] Nurse Note* Nursing Notes - Lauren Roth RN - 01/22/2024 8:56 AM EDT Patient denies hx of chemo and radiation. Patient has metal in bilateral feet. Patient denies any other metal or foreign objects in body. Patient denies hx of seizure or stroke. [facility] History of Present illness Narrative* Christiano Waller MD - 01/07/2024 3:00 PM EDT Images from the original note were not included. Since last seen in clinic, lesion has grown and became more painful, he has been using topical lidocaine w some improvement, clinically appears as vegetation and with more substance that on consult day; clinically favor SCC. PROCEDURE REPORT: TANGENTIAL BIOPSY Patient Name: Melodie Medrano Jr. Date: 01/07/2024 Surgeon: Christiano Ang MD Highway Engineering Teacher Surgeon: Rebekah Morris MD Assistants: Fátima Rob LPN, Clayton Fink LPN, Nina Ríos LPN, Miranda Muller RN Site: Glans penis, anterior Post-procedure Diagnosis: Neoplasm of uncertain behavior (238.2) r/o malignancy ( favor SCC Vs other) vs infectious ( Vs inflammatory Vs other Depth extended to: MID DERMIS Estimated Blood Loss: <5mL The risks, complications, and alternatives to the procedure were explained in detail. The describedrisks include but are not limited to scarring, bleeding, infection, pain, discoloration, numbness, nerve damage leading to loss of muscle movement, and recurrence. Procedure: With the patient in a supine position, the skin surrounding the biopsy site was scrubbedwith Hibiclens. Anesthesia was obtained by injecting 3cc of 1% lidocaine with epinephrine. The skinsurrounding the lesions was placed under tension and the lesion was biopsied with a Dermablade. Thespecimen was sent for histopathologic examination. Hemostasis was obtained by application of 35% aluminum chloride solution. The estimated blood loss was less than 2cc. The patient tolerated the procedure well. The biopsy site was dressed with petrolatum and an adhesive dressing. Wound care was discussed with the patient, and a wound care instruction sheet was given. -Will send tissue for path, will send part of tissue for bacterial/mycobacterial/fungal culture (insaline), have obtained viral culture -Post-op medications: EMLA PRN pain, OTC acetaminophen and ibuprofen as needed (explained max dosages) Procedural Photographs (Full size photographs in IHIS under Media tab) Christiano Ang MD Mohs Micrographic Surgery Fellow I, Dr. Rebekah Morris, saw and personally examined the patient on 01/07/[address] Christiano Ang. I discussed the findings and therapeutic plan with Dr. Christiano Ang. The encounter diagnosis was Neoplasm of uncertain behavior of skin.. I agree with the history, physical examination, and medical decisions as outlined. Orders Placed This Encounter BACTERIAL CULTURE AND DIRECT SMEAR, LESION, TISSUE, DEVICE ACID FAST CULTURE, TISSUE FUNGUS CULTURE - SKIN LESION Lidocaine-prilocaine 2.5-2.5 % cream HSV BY PCR, FLUID/LESION SURG PATH REQUEST For the procedures performed during this visit, I attest that I participated in the planning and was present for the critical portions of the procedure. Rebekah Morris MD [facility] Division of Dermatology [facility]* Patient Instructions* Fátima DARON Rob - 01/07/2024 3:00 PM EDT Wound Care for Open or Sutured Wounds after Skin Surgery Wound care is done to clean the wound, prevent infection and prevent scab formation. Wounds heal faster when scabs are not allowed to form on wounds. When to do wound Care ? Leave original dressing in place until____48 hours ? Then, do wound care once daily as directed. ? Stop wound care when skin has healed over or stiches/vangie are dissolved or removed. Supplies (use items checked) _x_Tape _x_White Petroleum jelly (Vaseline or Aquaphor) _x_ Band-Aid or Non-Adherent gauze dressing (Telfa) _x_Cotton tip applicators (Q-Tips) Care of the Wound 1. Shower with bandage in place.At end of shower gently remove old dressing. If the dressing is stuck, wet the dressing with tap water, wait 3-5 minutes and then remove it, or remove old dressing in the bath or shower. 2. Then clean the wound by method checked below : ? Allow soap, water, and/or shampoo to wash over wound, and then rinse the wound with tap water. 3. With clean Q-tip , apply THIN layer of ointment or Vaseline. 4. Cover the wound with a band-aid or non-stick pad. Cut the pad with clean scissors to fit the wound. Then tape around the pad. Note: if you do not want to use a dressing, make sure to reapply ointment or Vaseline frequently tokeep the wound moist at all times. Please call if you have any questions or concerns that I can help you address or you may speak withany of the Dermatology MOHS team [phone] option 2. In case of bleeding To prevent bleeding, avoid drinking alcohol,. If there is a large amount of bleeding (hemorrhage), follow these steps: 1. Apply direct pressure firmly over the wound for 15 minutes, timed by the clock. If bleeding has not stopped, apply pressure for 15 more minutes. 2. If bleeding still has not stopped, continue holding pressure on the wound and call your tobacco sizer (preferred) or go to your local emergency room. In Case of Pain Local anesthesia will wear off in approximately 1-3 hours. The area may burn, throb, feel tender orsore but should NOT be excruciatingly painful. If your wound hurts, take Tylenol or Extra-Strength Tylenol (acetaminophen) as directed on bottle, around the clock for the first 2-3 days. If the acetaminophen does not control the discomfort, you may additionally take ibuprofen around the clock as directed on the back of the bottle (this can be in addition to the acetaminophen). If this does not reduce the discomfort, please call your tobacco sizer. What to Expect after Surgery ? The wound may have a slight pink or brown colored fluid leaking from it. This may show on the dressing. ? Mild pain. ? Mild tenderness at the wound site, like a bruise. ? Mild color changes to skin, like a bruise. ? A black eye can appear with facial surgeries. ? Swelling of the eyelids may happen with facial surgeries. ? Swelling will get worse for the first three days before it will start to improve. To reduce the amount of swelling that may occur, you can apply an ice pack to the area once an hour for 20 minutes at a time. ? If you had a procedure on the frontal scalp, forehead, periocular (near eye), close to eyebrows, ortemple areas, two things may occur. Bruising and or swelling may occur around the eyes. Swelling under the lower eye is usually most noticeable. If swelling does occur it typically peaks (is the worst) day 5 after procedure and may take severalweeks to resolve. Call your Doctor if you have: Bleeding not controlled by pressure. Increase in redness Pain not controlled by Tylenol and/or Ibuprofen Swelling Increased or severe pain Drainage of pus Fever over 100.5 degrees Red streaks extending from the operative site. A marble size bump ( Hematoma)under the skin that is blue/purple/and/or red Who to call [facility] at option 2 for problems Saturday through Saturday from 8:00am to 4:30pm. For Urgent problems in the evenings or after hours , call the hospital gridcap machine operator at and ask for the Decating Machine Operator director medical economics. If you have not received a timely answer, call [phone] Mychart may be utilized for NON-URGENT issues (may take up to 24 hours for response; please be aware that Sungevity[employer] messages are not addressed over the weekend). If there are any emergencies we ask that you call one of the numbers in the above paragraph. documented in this [facility] Discharge instructions Patient Education 12/21/2023 05:27:02 Post Op Wound Check, Bleeding Wound Check After Surgery: Bleeding Surgery involves cutting through layers of skin, fatty tissue, muscle, and sometimes bone and cartilage. Stitches or vangie are used to close all layers of the wound. The stitches on the inside willdissolve in about 2 to 3 weeks. Any stitches or vangie used on the outside need to be removed in about 7 to 14 days, depending on the location. It is normal to have some clear or bloody discharge on the wound covering or bandage (dressing) forthe first few days after surgery. If your wound was stitched closed, you should not have to change the dressing more than 3 times a day in the first few days. Bleeding or discharge requiring more frequent dressing changes can be a sign of a problem. If this occurs, notify your healthcare provider right away. Home care Different types of surgery require different types of care and dressing changes. It is important tofollow all instructions and advice from your surgeon, as well as other members of your healthcare team. Wound care If you smoke, get help to quit. Smoking interferes with wound healing. Ask your healthcare providerabout ways to quit. Keep the wound clean, as directed by your healthcare provider. Change the dressing as directed. Change the dressing sooner if it becomes wet or stained with bloodor fluid from the wound. Bathe with a sponge (no shower or tub baths) for the first few days after surgery, or until there is no more drainage from the wound. Unless you received different instructions from your surgeon, youcan then shower. Don't soak the area in water (no baths or swimming) until the tape, sutures, or vangie are removed and any wound opening has dried out and healed. Changing the dressing Wash your hands before changing the dressings. Carefully remove the dressing and tape; don t just yank it off. If it sticks to the wound, you may need to wet it a little to remove it, unless your healthcare provider told you not to wet it. Wash your hands again before putting on a new, clean dressing. Gently clean the wound with clean water (or saline) using gauze or a clean washcloth. Don't rub it or pick at it. Don't use soap, alcohol, hydrogen peroxide, or any other cleanser. If you were told to dry the wound before putting on a new dressing, gently pat it dry. Don't rub. Put the old dressing in a sealed plastic bag and throw it in the trash. Don't reuse it! Wash your hands again when you are done. Types of dressings Your healthcare team will tell you what type of dressing to put on your wound. Follow your healthcare team s instructions carefully, and contact them if you have any questions. Two common types of dressings are described below. You may have one of these or another type. Dry dressing. Use dry gauze. If the wound is still draining, use a nonadherent dressing, which shouldn t stick to the wound. Wet-to-dry dressing. Wet the gauze, and squeeze out the excess water (or saline), before putting iton. Then, cover this with a dry pad. Medicines If you were given antibiotics, take them until they are used up or your healthcare provider tells you to stop. It is important to finish the antibiotics even though you feel better, to make sure the infection has cleared. You can take acetaminophen or ibuprofen for pain, unless you were given a different pain medicine to use. (Note: If you have chronic liver or kidney disease, or have ever had a stomach ulcer or gastrointestinal bleeding, or are taking blood thinner medicines, talk with your healthcare provider before using these medicines.) Aspirin should never be used in anyone under 18 years of age who is ill with a fever. It may cause severe liver damage. Follow-up care Follow up with your healthcare provider, or as advised, for your next wound check or removal of stitches, vangie, or tape. If a culture was done, you will be notified if the results will affect your treatment. You can callas directed for the results. If imaging tests, such as X-rays, an ultrasound, or CT scan were done, they will be reviewed by a specialist. You will be notified of the results, especially if they affect treatment. Call 911 Call 911 if any of these occur: Trouble breathing or swallowing Wheezing Hoarse voice or trouble speaking Extreme confusion Extreme drowsiness or trouble awakening Fainting or loss of consciousness Rapid heart rate or very slow heart rate Vomiting blood, or large amounts of blood in stool Discomfort in the center of the chest that feels like pressure, squeezing, a sense of fullness, or pain Discomfort or pain in other upper body areas, such as the back, one or both arms, neck, jaw, or stomach Stroke symptoms (spot a stroke FAST ) oF: Face drooping. One side of the face is numb or droops. oA: Arm weakness. One arm feels weak or numb. oS: Speech difficulty: Speech is slurred, or the person is unable to speak. oT: Time to call 911. Even if symptoms go away, call 911. When to seek medical advice Call your healthcare provider right away if any of the following occur: Fluid or blood soaking 5 or more bandages a day during the first 3 days after surgery Fluid or blood still draining from the wound more than 3 days after surgery Increasing pain at the site of surgery Fever of 100.4 F (38 C) or higher, or as directed by your healthcare provider Redness around the wound Pus coming from the wound Vomiting, constipation, or diarrhea [id number] [employer]. [address] [place] [address]. All rights reserved. This information is not intended as a substitute for professional medical care. Always follow yourhealthcare professional's instructions. Follow Up Care 12/21/2023 05:05:06 With:VIDAL JUAREZ DO Address: [address] [place] [address] [place] [address]- [phone] When:2-4 days [facility] 06-08-2024 Note Discharge Instructions Thank you for allowing [facility] to assist you with your healthcare needs. The following is importantdischarge information regarding your hospital visit. What to Do Next Instructions from Your Care Team No qualifying data available. Post Acute Orders No qualifying data available. You Need to Schedule the Following Appointments Follow Up with VIDAL JUAREZ DO When:Within 2-4 days Where:[address] [facility] [place] [address] [phone] Allergies NKA Medications Please ask your primary doctor or pharmacist before taking any other medication not listed, including over the counter drugs, herbal medications, vitamins and or supplements as they may interact withyour home medications. What How Much When Why Instructions Last Dose Unchanged amLODIPine (amLODIPine 5 mg oral tablet) 1 tab(s) by mouth Once a day If BP > 140 systolic or 90 diastolic on regular basis by increase to 10mg dosing Unchanged cephalexin (cephalexin 500 mg oral capsule) 1 cap by mouth Four (4) times a day Infected incision Duration: 10 Days Unchanged cyanocobalamin (Vitamin B12 1000 mcg oral tablet) 1 tab(s) by mouth Once a day Unchanged ergocalciferol (ergocalciferol 50,000 intl units (1.25 mg) oral capsule) 1 cap by mouth Every week Unchanged herbal/ nutritional product (turmeric 500 mg oral capsule) 1 cap by mouth Every day Unchanged lisinopril (lisinopril 30 mg oral tablet) 1 tab(s) by mouth Daily at bedtime Unchanged metFORMIN (MetFORMIN (Eqv-Glucophage XR) 500 mg oral tablet, EXTENDED RELEASE) 2 tab(s) by mouth Two (2) times a day Duration: 90 Days 2 in am and 2 in pm Unchanged metoprolol (Metoprolol Succinate ER 50 mg oral TABLET extended release) 1 tab(s) by mouth Once a day Unchanged omega-3 polyunsaturated fatty acids ([place]-3 Fish Oil) by mouth Once a day Unchanged rivaroxaban (Xarelto 20 mg oral tablet) 1 tab(s) by mouth With supper Unchanged rosuvastatin (rosuvastatin 10 mg oral tablet) 1 tab(s) by mouth Once a day Unchanged sildenafil (sildenafil 25 mg oral tablet) 1 tab(s) by mouth Once a day Erectile dysfunction Can take up to 50mg. 1 hour before sexual activity Please take this list to your next doctor s visit. Bring all medications you take, including over the counter medications, herbals and other supplements with you to your doctor s visit. Patients and families are reminded to discard old lists and to update any records with all medication providers or retail pharmacies. Education Materials Wound Check After Surgery: Bleeding Surgery involves cutting through layers of skin, fatty tissue, muscle, and sometimes bone and cartilage. Stitches or vangie are used to close all layers of the wound. The stitches on the inside willdissolve in about 2 to 3 weeks. Any stitches or vangie used on the outside need to be removed in about 7 to 14 days, depending on the location. It is normal to have some clear or bloody discharge on the wound covering or bandage (dressing) forthe first few days after surgery. If your wound was stitched closed, you should not have to change the dressing more than 3 times a day in the first few days. Bleeding or discharge requiring more frequent dressing changes can be a sign of a problem. If this occurs, notify your healthcare provider right away. Home care Different types of surgery require different types of care and dressing changes. It is important tofollow all instructions and advice from your surgeon, as well as other members of your healthcare team. Wound care If you smoke, get help to quit. Smoking interferes with wound healing. Ask your healthcare providerabout ways to quit. Keep the wound clean, as directed by your healthcare provider. Change the dressing as directed. Change the dressing sooner if it becomes wet or stained with bloodor fluid from the wound. Bathe with a sponge (no shower or tub baths) for the first few days after surgery, or until there is no more drainage from the wound. Unless you received different instructions from your surgeon, youcan then shower. Don't soak the area in water (no baths or swimming) until the tape, sutures, or vangie are removed and any wound opening has dried out and healed. Changing the dressing Wash your hands before changing the dressings. Carefully remove the dressing and tape; don t just yank it off. If it sticks to the wound, you may need to wet it a little to remove it, unless your healthcare provider told you not to wet it. Wash your hands again before putting on a new, clean dressing. Gently clean the wound with clean water (or saline) using gauze or a clean washcloth. Don't rub it or pick at it. Don't use soap, alcohol, hydrogen peroxide, or any other cleanser. If you were told to dry the wound before putting on a new dressing, gently pat it dry. Don't rub. Put the old dressing in a sealed plastic bag and throw it in the trash. Don't reuse it! Wash your hands again when you are done. Types of dressings Your healthcare team will tell you what type of dressing to put on your wound. Follow your healthcare team s instructions carefully, and contact them if you have any questions. Two common types of dressings are described below. You may have one of these or another type. Dry dressing. Use dry gauze. If the wound is still draining, use a nonadherent dressing, which shouldn t stick to the wound. Wet-to-dry dressing. Wet the gauze, and squeeze out the excess water (or saline), before putting iton. Then, cover this with a dry pad. Medicines If you were given antibiotics, take them until they are used up or your healthcare provider tells you to stop. It is important to finish the antibiotics even though you feel better, to make sure the infection has cleared. You can take acetaminophen or ibuprofen for pain, unless you were given a different pain medicine to use. (Note: If you have chronic liver or kidney disease, or have ever had a stomach ulcer or gastrointestinal bleeding, or are taking blood thinner medicines, talk with your healthcare provider before using these medicines.) Aspirin should never be used in anyone under 18 years of age who is ill with a fever. It may cause severe liver damage. Follow-up care Follow up with your healthcare provider, or as advised, for your next wound check or removal of stitches, vangie, or tape. If a culture was done, you will be notified if the results will affect your treatment. You can callas directed for the results. If imaging tests, such as X-rays, an ultrasound, or CT scan were done, they will be reviewed by a specialist. You will be notified of the results, especially if they affect treatment. Call 911 Call 911 if any of these occur: Trouble breathing or swallowing Wheezing Hoarse voice or trouble speaking Extreme confusion Extreme drowsiness or trouble awakening Fainting or loss of consciousness Rapid heart rate or very slow heart rate Vomiting blood, or large amounts of blood in stool Discomfort in the center of the chest that feels like pressure, squeezing, a sense of fullness, or pain Discomfort or pain in other upper body areas, such as the back, one or both arms, neck, jaw, or stomach Stroke symptoms (spot a stroke FAST ) oF: Face drooping. One side of the face is numb or droops. oA: Arm weakness. One arm feels weak or numb. oS: Speech difficulty: Speech is slurred, or the person is unable to speak. oT: Time to call 911. Even if symptoms go away, call 911. When to seek medical advice Call your healthcare provider right away if any of the following occur: Fluid or blood soaking 5 or more bandages a day during the first 3 days after surgery Fluid or blood still draining from the wound more than 3 days after surgery Increasing pain at the site of surgery Fever of 100.4 F (38 C) or higher, or as directed by your healthcare provider Redness around the wound Pus coming from the wound Vomiting, constipation, or diarrhea [id number] [employer]. [address] [place] [address]. All rights reserved. This information is not intended as a substitute for professional medical care. Always follow yourhealthcare professional's instructions. Additional Information VACCINATE! IT SAVES LIVES! Members of the community who have not yet received the COVID-19 vaccine and would like to receive it can visit one of [facility] vaccine clinics. There are many vaccine clinic locations within the [facility]. For locations and available times, please visit www.[email or web address].[place].gov/. It is important to note that some COVID mobile vaccine clinics are held outdoors and may be canceled in rainy or stormy conditions. To learn more about pediatric vaccinations (ages 5-11), we invite you to visit the [facility] webpage. [email or web address]/[email or web address] [email or web address] learn more about the COVID-19 vaccine, we invite you to visit the CDC website for a list of frequently asked questions. https://www.cdc.gov/coronavirus/2019-ncov/vaccines/faq.html [facility] Patient Portal Access Instructions: Stay connected with your healthcare team and access your personal medical information anytime with the [employer] Patient Portal. If you would like a full copy of your medical records please contact the [facility] Medical Records Department Saturday through Saturday between 8a.m. and 4:30p.m. Please follow the directions below to access the portal: 1.Access the email account you provided upon registration to the [facility].2.Look for an invitation email from [facility].3.Open the email and access the invitation link: Accept Invitation to [facility]4.Fill in the required ribeiro to create your account. Sign into [email or web address] with your username and password that you created in the above steps to stay up to date. You can then view a summary of results, a summary of your visits, and the ability to download your summaries to your computer or send the information securely to a physician. Remember that your healthcare information is confidential, so carefully consider who you will allow to register on the [employer] Patient Portal for access to your information. You can also access the [employer] Patient Portal on the [employer]. Simply click on Health Records under [employer] and then click on the [employer] logo. HOW TO SAFELY DISPOSE OF PRESCRIPTION MEDICATIONS Please use one of the following methods to safely dispose of your unused medications. 1.Use a drug disposal kit: the drug disposal pouch allows you to safely discard your old and unuseddrugs. Ask your nurse to give you one when you are discharged.2.Visit a local take-back location: Many local pharmacies and police departments have programs that collect old and unwanted prescriptiondrugs. Call your local pharmacy or go to http://[employer]/2Q8El2t to find one close to you.3.Make use of household items: Use cat litter or old coffee grounds to dispose medications if other options arenot available. Mix your drugs with these household products, seal them in an airtight container andthrow it into the garbage. Call [facility]: [phone] to be sure your drugs can be disposed of in this way. Some medicines may require a different approach.4.Never flush your medications down the toilet. IF YOU HAVE BEEN PRESCRIBED AN OPIOIDS FOR PAIN If you have been prescribed an opioid (such as hydrocodone, oxycodone or morphine), it is critical to understand the possible side effects and risks of opioid pain medications. Even when taken as directed, opioids can have several side effects including: Tolerance, meaning you might need to take more of a medication for the same pain relief. Nausea, vomiting and/or constipation. Sleepiness, dizziness, dry mouth, confusion, depression or itching. Physical dependence, meaning you have withdrawal symptoms when a medication is stopped ? this can develop within a few days. KNOW YOUR RESPONSIBILITIES It is important to know exactly how much and how often to take the opioid pain medications you are prescribed. Never take opioids in higher amounts or more often than prescribed. Do not combine opioids with alcohol or other drugs that cause drowsiness, such as benzodiazepines, also known as benzos,including diazepam and alprazolam, muscle relaxants or sleep aids. Never sell or share prescriptionopioids. This is illegal. Store opioids in a secure place and out of reach of others (including children, family, friends and visitors). The last page(s) of this document has been signed and retained as a CHART COPY Signatures Patient Education Materials Post Op Wound Check, Bleeding Medication Leaflets My discharge plan and instructions have been reviewed and explained to me and I,MELODIE MEDRANO JR understand my current condition and have read and understand these discharge instructions. I have received a written copy of the plan/instructions. If I have questions, I am aware that I should contact my doctor. Patient/Nursing Aide Signature: Date/Time: Relationship to Patient: Witness Name/Signature: Date/Time: [facility]06-06-2024 History of Present illness Narrative * Christiano Waller MD - 12/19/2023 9:30 AM EDT Images from the original note were not included. S: A 58 y.o. year old male presents for Chief Complaint Patient presents with Consult HPI: Pt referred by Dr. Maurer due to concern of new ulcer. Patient first presented to local [facility] in January 2021 with an itchy scaly lesion on the undersurface of his penis (per pt he states that this was on posterior area). On 02/09/21 he underwent a shave biopsy for well-differentiated squamous cell carcinoma. That was then follow up with a MOHS procedure in 03/24/2021. In April of 2023 he noted a recurrent lesion and had another shave biopsy on05/10/23 that noted pathology consistent with squamous cell carcinoma in situ that extended into the deep margin. On 06/28/23 the underwent another excision of invasive well-differentiated squamous cell carcinoma, -SM, pT1 NxMx. Patent referred to Dr. Bauer by Dr. Kylee Cantor local medical oncologist. Dr. Maurer saw this pt last on 11/29/2023. He has continued monitoring w CT abdomen pelvis w contrast, latest as below: 11/29/2023 IMPRESSION: 1. Left inguinal lymph node with enhancing nodule in its cortex, does not meet criteria for lymphadenopathy, however raises some concern. Consider targeted ultrasound. No intra-abdominal/pelvic lymphadenopathy by size criteria. 8 mm left inguinal lymph node (series 2, image 180), has an enhancing nodule in its cortex, and does not meet criteria for lymphadenopathy. A 10 x 9 mm inguinal lymph node (series 2, image 194), is stable since prior exam, and is not enlarged, or morphologically abnormal. Pt and states that he has had this intermittent painful ulcer/lesion on glans of penis (anterior) for years, states that maybe 10 years. He states that in 08/2023 this lesion was seen and biopsied by Dr. Maurer and revealed the path noted below. Since then they have noticed wound to grow and become more painful. It was less painful when he was briefly on cephalexin 500 mg BID for 7 days, but felt that clobetasol 0.05% ointment did not helped at all, prescribed by Urology on 11/04/23. He denies any PMH or FMH of collagen vascular conditions, no other co-morbidities besides the below. Hehas a h/o melanoma on L flank per pt, treated w excision by [facility] a year ago. A. Penis, penile mass, biopsy: Hyperkeratosis, parakeratosis and underlying fibrosis, negative for carcinoma Past Medical/Surgical History Information reviewed today from written Patient Intake Form and there are no signficant changes. has a past medical history of Diabetes mellitus, Essential hypertension, benign, Hyperlipidemia, Melanoma, Penile ca, and Pulmonary embolism. Past Family/Social History Information reviewed and updated today from EHR documentation. Medications/Allergies/Immunizations Information reviewed and updated today from EHR documentation. Review of Systems Targeted review of systems was performed today, negative except for those mentioned in H&P O: Anterior glans penis with an ulcer that appears shallow w/o substance at palpation, central portionw fibrin /granulation tissue No inguinal LADs palpated Posterior shaft of penis w scar from prior procedure AP: Penile ulcer, (chronic illness with exacerbation, progression, or side effect of treatment) -discussed that if growing and changing this will require new biopsy as differential diagnosis is very broad, from malignancy (SCC Vs other) vs infectious (Bacterial Vs viral Vs fungal Vs mycobacterial Vs other-consider STDs) Vs inflammatory (Behcet's Vs Fixed drug eruption Vs Zoon's balanitis Vs ot her autoimmune/inflammatory conditions) Vs other -they have upcoming trip and declined shave biopsy today -in upcoming biopsy will request H&E + tissue culture (bacterial, anaerobe, AFB, fungal) + swabfor HSV and VZV -he will be schedule in upcoming weeks once they return from trip for biopsy -discussed the above in detail as this is needed to give a clearer diagnosis -they verbalized understanding and will be scheduled for biopsy at their return Patient will need to be scheduled for penile bx when he returns from [place] on 12/31/23 Medical Decision Making Number/Complexity of Problems: Moderate (1 chronic w exac/prog/se tx OR 2 stable chronic OR 1 undx new uncertain prog OR acute w systemic OR 1 acute complicated injury Data Reviewed/Analyzed: Low (I reviewed or carried out the following: Note and Path) Risk in Patient Management: Moderate (moderate risk of morbidity from diagnostic testing/treatment) Level of MDM: MDM Level: Moderate (28333,01012) Procedural Photographs (Full size photographs in IHIS under Media tab) Christiano Ang MD [facility] Micrograph[facility] Surgery Fellow I, Sagrario Barnard MD, MPH, the attending, saw and personally examined the patient today with the fellow, Christiano Ang MD. I discussed the findings and therapeutic plan with the fellow. I agree with the history, physical examination, and medical decisions as outlined. Sagrario Barnard MD MPH FAAD FACAK Professor, Department of Dermatology [facility] Discharge instructions Patient Education 12/15/2023 18:51:37 Laceration, Extremity: Suture, Staple, or Tape Extremity Laceration: Stitches, Vangie, or Tape A laceration is a cut through the skin. If it is deep, it may require stitches or vangie to close so it can heal. Minor cuts may be treated with surgical tape closures, or skin glue. X-rays may be done if something may have entered the skin through the cut. You may also need a tetanus shot if you are not up to date on this vaccine. Home care Follow the healthcare provider s instructions on how to care for the cut. Wash your hands with soap and warm water before and after caring for your wound. This is to help prevent infection. Keep the wound clean and dry. If a bandage was applied and it becomes wet or dirty, replace it. Otherwise, leave it in place for the first 24 hours, then change it once a day or as directed. If stitches or vangie were used, clean the wound daily: oAfter removing the bandage, wash the area with soap and water. Use a wet cotton swab to loosen andremove any blood or crust that forms. oAfter cleaning, keep the wound clean and dry. Talk with your healthcare provider before putting any antibiotic ointment on the wound. Reapply the bandage. You may remove the bandage to shower as usual after the first 24 hours, but don't soak the area in water (no swimming) until the stitches or vangie are removed. If surgical tape closures were used, keep the area clean and dry. If it becomes wet, blot it dry with a towel. Let the surgical tape fall off on its own. The healthcare provider may prescribe an antibiotic cream or ointment to prevent infection. He or she may also prescribe an antibiotic pill. Don't stop taking this medicine until you have finished itall or the provider tells you to stop. The provider may also prescribe medicine for pain. Follow the instructions for taking these medicines. Don't do activities that may reopen your wound. Follow-up care Follow up with your healthcare provider, or as advised. Most skin wounds heal within 10 days. But an infection may sometimes occur even with proper treatment. Check the wound daily for the signs of infection listed below. Stitches and vangie should be removed within 7 to14 days. If surgical tape closures were used, you may remove them after 10 days if they have not fallen off by then. When to seek medical advice Call your healthcare provider right away if any of these occur: Wound bleeding not controlled by direct pressure Signs of infection, including increasing pain in the wound, increasing wound redness or swelling, or pus or bad odor coming from the wound Fever of 100.4 F (38 C) or higher, or as directed by your healthcare provider Stitches or vangie come apart or fall out or surgical tape falls off before 7 days Wound edges reopen Wound changes colors Numbness occurs around the wound Decreased movement around the injured area 8159-4253 [employer]. [address] [place] [address]. All rights reserved. This information is not intended as a substitute for professional medical care. Always follow yourhealthcare professional's instructions. Follow Up Care 12/15/2023 17:23:36 With:VIDAL JUAREZ DO Address: [address] [place] [address] [place] [address] [phone] When:2-4 days [facility] 06-02-2024 Note Discharge Instructions Thank you for allowing [facility] to assist you with your healthcare needs. The following is importantdischarge information regarding your hospital visit. Diagnosis from Today's Visit Laceration of left foot What to Do Next Instructions from Your Care Team Discharge Return to Work, School, or Sports (Return to Work, School, or Sports) (Discharge Return to status) - Ordered -- 12/16/23, May return to: work, 12/15/23 18:47:00 EDT Post Acute Orders No qualifying data available. You Need to Schedule the Following Appointments Follow Up with VIDAL JUAREZ DO When:Within 2-4 days Where:[address] [facility] [place] [address]- [phone] Allergies NKA Medications Please ask your primary doctor or pharmacist before taking any other medication not listed, including over the counter drugs, herbal medications, vitamins and or supplements as they may interact withyour home medications. What How Much When Why Instructions Last Dose Unchanged amLODIPine (amLODIPine 5 mg oral tablet) 1 tab(s) by mouth Once a day If BP > 140 systolic or 90 diastolic on regular basis by increase to 10mg dosing Unchanged cyanocobalamin (Vitamin B12 1000 mcg oral tablet) 1 tab(s) by mouth Once a day Unchanged ergocalciferol (ergocalciferol 50,000 intl units (1.25 mg) oral capsule) 1 cap by mouth Every week Unchanged herbal/ nutritional product (turmeric 500 mg oral capsule) 1 cap by mouth Every day Unchanged lisinopril (lisinopril 30 mg oral tablet) 1 tab(s) by mouth Daily at bedtime Unchanged metFORMIN (MetFORMIN (Eqv-Glucophage XR) 500 mg oral tablet, EXTENDED RELEASE) 2 tab(s) by mouth Two (2) times a day Duration: 90 Days 2 in am and 2 in pm Unchanged metoprolol (Metoprolol Succinate ER 50 mg oral TABLET extended release) 1 tab(s) by mouth Once a day Unchanged omega-3 polyunsaturated fatty acids ([place]-3 Fish Oil) by mouth Once a day Unchanged rivaroxaban (Xarelto 20 mg oral tablet) 1 tab(s) by mouth With supper Unchanged rosuvastatin (rosuvastatin 10 mg oral tablet) 1 tab(s) by mouth Once a day Unchanged sildenafil (sildenafil 25 mg oral tablet) 1 tab(s) by mouth Once a day Erectile dysfunction Can take up to 50mg. 1 hour before sexual activity Please take this list to your next doctor s visit. Bring all medications you take, including over the counter medications, herbals and other supplements with you to your doctor s visit. Patients and families are reminded to discard old lists and to update any records with all medication providers or retail pharmacies. Education Materials Extremity Laceration: Stitches, Vangie, or Tape A laceration is a cut through the skin. If it is deep, it may require stitches or vangie to close so it can heal. Minor cuts may be treated with surgical tape closures, or skin glue. X-rays may be done if something may have entered the skin through the cut. You may also need a tetanus shot if you are not up to date on this vaccine. Home care Follow the healthcare provider s instructions on how to care for the cut. Wash your hands with soap and warm water before and after caring for your wound. This is to help prevent infection. Keep the wound clean and dry. If a bandage was applied and it becomes wet or dirty, replace it. Otherwise, leave it in place for the first 24 hours, then change it once a day or as directed. If stitches or vangie were used, clean the wound daily: oAfter removing the bandage, wash the area with soap and water. Use a wet cotton swab to loosen andremove any blood or crust that forms. oAfter cleaning, keep the wound clean and dry. Talk with your healthcare provider before putting any antibiotic ointment on the wound. Reapply the bandage. You may remove the bandage to shower as usual after the first 24 hours, but don't soak the area in water (no swimming) until the stitches or vangie are removed. If surgical tape closures were used, keep the area clean and dry. If it becomes wet, blot it dry with a towel. Let the surgical tape fall off on its own. The healthcare provider may prescribe an antibiotic cream or ointment to prevent infection. He or she may also prescribe an antibiotic pill. Don't stop taking this medicine until you have finished itall or the provider tells you to stop. The provider may also prescribe medicine for pain. Follow the instructions for taking these medicines. Don't do activities that may reopen your wound. Follow-up care Follow up with your healthcare provider, or as advised. Most skin wounds heal within 10 days. But an infection may sometimes occur even with proper treatment. Check the wound daily for the signs of infection listed below. Stitches and vangie should be removed within 7 to14 days. If surgical tape closures were used, you may remove them after 10 days if they have not fallen off by then. When to seek medical advice Call your healthcare provider right away if any of these occur: Wound bleeding not controlled by direct pressure Signs of infection, including increasing pain in the wound, increasing wound redness or swelling, or pus or bad odor coming from the wound Fever of 100.4 F (38 C) or higher, or as directed by your healthcare provider Stitches or vangie come apart or fall out or surgical tape falls off before 7 days Wound edges reopen Wound changes colors Numbness occurs around the wound Decreased movement around the injured area [id number] [employer]. [address] [place] [address]. All rights reserved. This information is not intended as a substitute for professional medical care. Always follow yourhealthcare professional's instructions. Additional Information VACCINATE! IT SAVES LIVES! Members of the community who have not yet received the COVID-19 vaccine and would like to receive it can visit one of [facility] vaccine clinics. There are many vaccine clinic locations within the [facility]. For locations and available times, please visit www.[email or web address].[place].gov/. It is important to note that some COVID mobile vaccine clinics are held outdoors and may be canceled in rainy or stormy conditions. To learn more about pediatric vaccinations (ages 5-11), we invite you to visit the [facility] webpage. https://www.[facility].org/pages/2117-Dgwjk-Knpkhtpfemp-Nvgkxmznun-Pmili-Sgc stions.htmlTo learn more about the COVID-19 vaccine, we invite you to visit the CDC website for a list of frequently asked questions. https://www.cdc.gov/coronavirus/2019-ncov/vaccines/faq.html [facility] Patient Portal Access Instructions: Stay connected with your healthcare team and access your personal medical information anytime with the [facility] Patient Portal. If you would like a full copy of your medical records please contact the [facility] Medical Records Department Saturday through Saturday between 8a.m. and 4:30p.m. Please follow the directions below to access the portal: 1.Access the email account you provided upon registration to the [facility].2.Look for an invitation email from [facility].3.Open the email and access the invitation link: Accept Invitation to [employer]4.Fill in the required ribeiro to create your account. Sign into [email or web address] with your username and password that you created in the above steps to stay up to date. You can then view a summary of results, a summary of your visits, and the ability to download your summaries to your computer or send the information securely to a physician. Remember that your healthcare information is confidential, so carefully consider who you will allow to register on the [employer] Patient Portal for access to your information. You can also access the [employer] Patient Portal on the [employer]. Simply click on Health Records under [employer] and then click on the [employer] logo. HOW TO SAFELY DISPOSE OF PRESCRIPTION MEDICATIONS Please use one of the following methods to safely dispose of your unused medications. 1.Use a drug disposal kit: the drug disposal pouch allows you to safely discard your old and unuseddrugs. Ask your nurse to give you one when you are discharged.2.Visit a local take-back location: Many local pharmacies and police departments have programs that collect old and unwanted prescriptiondrugs. Call your local pharmacy or go to http://[employer]/3C9Js7p to find one close to you.3.Make use of household items: Use cat litter or old coffee grounds to dispose medications if other options arenot available. Mix your drugs with these household products, seal them in an airtight container andthrow it into the garbage. Call [facility]: [phone] to be sure your drugs can be disposed of in this way. Some medicines may require a different approach.4.Never flush your medications down the toilet. IF YOU HAVE BEEN PRESCRIBED AN OPIOIDS FOR PAIN If you have been prescribed an opioid (such as hydrocodone, oxycodone or morphine), it is critical to understand the possible side effects and risks of opioid pain medications. Even when taken as directed, opioids can have several side effects including: Tolerance, meaning you might need to take more of a medication for the same pain relief. Nausea, vomiting and/or constipation. Sleepiness, dizziness, dry mouth, confusion, depression or itching. Physical dependence, meaning you have withdrawal symptoms when a medication is stopped ? this can develop within a few days. KNOW YOUR RESPONSIBILITIES It is important to know exactly how much and how often to take the opioid pain medications you are prescribed. Never take opioids in higher amounts or more often than prescribed. Do not combine opioids with alcohol or other drugs that cause drowsiness, such as benzodiazepines, also known as benzos,including diazepam and alprazolam, muscle relaxants or sleep aids. Never sell or share prescriptionopioids. This is illegal. Store opioids in a secure place and out of reach of others (including children, family, friends and visitors). The last page(s) of this document has been signed and retained as a CHART COPY Signatures Patient Education Materials Laceration, Extremity: Suture, Staple, or Tape Medication Leaflets My discharge plan and instructions have been reviewed and explained to me and I,MELODIE MEDRANO JR understand my current condition and have read and understand these discharge instructions. I have received a written copy of the plan/instructions. If I have questions, I am aware that I should contact my doctor. Patient/Nursing Aide Signature: Date/Time: Relationship to Patient: Witness Name/Signature: Date/Time: [facility]05-17-2024 History of Present illness Narrative * Rebeca Kim, CODING EDUCATOR-MIXER ATTENDANT - 11/29/2023 8:15 AM EDT Images from the original note were not included. HPI Melodie Medrano Jr. is a 58 y.o. 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 Patient first presented to local [facility] in January 2021 with an itchy scaly lesion on the undersurface of his penis. On 02/09/21 he underwent a shave biopsy for well-differentiated squamous cell carcinoma. That was then follow up with a MOHS procedure in 03/24/2021. 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 On 06/28/23 the underwent another excision of invasive well-differentiated squamous cell carcinoma, -SM, pT1 NxMx. Patent referred by Dr.Mansour Cantor local medical oncologist. 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 He states that his previous biopsy area since aug has not still not healed and painful. 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 He felt that the antibiotics did help with theswelling however finished he finished his course that the inflammation has returned. He is scheduled to see Dr. Barnard on 12/19/23, No dysuria or GH. No recent UTIs. Denies f/c, n/v, cough, SOB, MARTINEZ, dizziness, bone/abdominal/flank pain. Normal bowel habits. Energy and appetite are good. Pathology 06/28/23 04/28/23 - Do you experience SOB walking two flights of stairs? No - Do you have trouble breathing when you lie flat? No - Have you had a heart attack, blood clot, stroke, or cardiac stent in the past 3 months? No - Do you have a pacemaker or ICD? No - If not, has one been recommended? No - Are you diabetic? Yes - If so, is your blood sugar over 300, three or more days/week? No - Recent AIC? (Over 8?) No , 6.8 Have you previously had anesthesia? yes - If so, was there difficulty placing breathing tube? No ECOG Performance Status Performance status: Karnofsky scale 100 (ECOG grade 0) No limitations Past Medical History He has a past medical history of Diabetes mellitus, Essential hypertension, benign, Hyperlipidemia,Melanoma, Penile ca, and Pulmonary embolism. Past Surgical History He has a past surgical history that includes acl reconstruction; foot surgery (Bilateral); vasectomy; back surgery; and other surgical (Right). Medications He has a current medication list which includes the following prescription(s): clobetasol, ergocalciferol, lisinopril-hydrochlorothiazide, metformin-xr, metoprolol succinate, rosuvastatin, and xarelto. Allergies He has No Known Allergies. Social History He reports that he has quit smoking. His smoking use included cigarettes. He has quit using smokeless tobacco. His smokeless tobacco use included chew. He reports current alcohol use of about 4.0 standard drinks of alcohol per week. He reports that he does not use drugs. Family History He family history includes Aneurysm in his father; Cancer- Other in his father; Lung Cancer in his maternal grandmother. Review of Systems Constitutional: No fevers or chills Skin: Negative for rash Endocrine: No heat/cold intolerance Cardiovascular: Negative for chest pain or dyspnea on exertion Respiratory: Negative for shortness of breath or wheezing Gastrointestinal: No constipation, nausea or vomiting Genitourinary: As in HPI Musculoskeletal: No new joint pain, + chronic foot pain Neurological: Negative for frequent headaches or dizziness Lymph/Heme: Negative for leg swelling or calf pain. PHYSICAL EXAM BP 157/86 Pulse 64 Temp 98.7 F (37.1 C) Resp 16 Ht 1.956 m (6' 5) Wt 111.4 kg (245 lb 11.2 oz) SpO2 97% BMI 29.14 kg/m Smoking Status Former Constitutional: NAD, WDWN. HEENT: NCAT. Conjunctivae normal. Cardiovascular: NoJVD. No LE Edema Pulmonary/Chest: Respirations are even and non-labored bilaterally. Bilateral chest rise. Abdominal: Soft. No distension, tenderness, masses or guarding. Neurological: Cranial Nerves II-XII grossly intact. Normal gait. Extremities: KASH. Warm. No cyanosis. Skin: [place], warm and dry. No rashes noted. Psychiatric: Normal mood and affect. Normal insight. CVA = no CVA tenderness Penis = uncircumcised penis, no blood or discharge at meatus, +area of irritation noted around areaof previous bx on penile head Possible groin LAD, fullness noted Diagnostic Tests None currently No results found for: WBC, WBCCOUNT, WBCFETAL, HGB, HCT, PLATELET, MCV Lab Results Component Value Date CREATSERUM 0.66 (L) 08/16/2023 No results found for: LEUKOCESTUR, NITRITE, PROTEIN, UPH, BLOOD, SPECIFICGRAV, KETONES, GLUCOSE Radiographic Studies CT ABD/PLV w/ contrast- today, pending final read Assessment Melodie Medrano Jr. is a 58 y.o. 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 Will treat penile irritation with keflex for 1 week and then topical steroid for 2 weeks. 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 Referral also placed to dermatology for MOHS considerations . Attending Attestation: I, Izaiah Maurer MD, saw and examined the patient. This plan was developed with the SHIPPING CLERK/ADMIN / resident at the time of the visit. The note has been reviewed and I agree with the complete assessment and plan.I provided a substantive portion of the care for this patient. I personally performed all aspects of the medical decision making for this encounter. I have reviewed and verified this documentation and it accurately reflects our care. Summary: I reviewed his CT and noted no progression. He has had limited response to antibiotics and steroids. I recommended topical lidocaine for symptom control and he is due to see Dr Barnard for MOHS consideration. We will review in 8 weeks how he is doing by televisit Izaiah Maurer MD Certified Composites Technician of Urologic Surgery Division of Urologic Oncology [facility] [place] documented in [facility] History of Present illness Narrative* Jc Hilton - 11/29/2023 8:00 AM EDT Intravenous access obtained and remained for next appointment in clinic at [facility]. 22 gauge IV in RT AC. Dressing intact and/or coban used to secure access. Patient instructed to report directly to next appointment. documented in this encounterOS[facility] History of Present illness Narrative* Rebeca Kim APRN-CHUCK - 11/04/2023 8:15 AM EDT Images from the original note were not included. HPI Melodie Medrano Jr. is a 58 y.o. 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 Patient first presented to local tobacco [facility] in January 2021 with an itchy scaly lesion on the undersurface of his penis. On 02/09/21 he underwent a shave biopsy for well-differentiated squamous cell carcinoma. That was then follow up with a MOHS procedure in 03/24/2021. 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 On 06/28/23 the underwent another excision of invasive well-differentiated squamous cell carcinoma, -SM, pT1 NxMx. Patent referred by Dr.Mansour Cantor local medical oncologist.. 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 He states that biopsy area since aug has not healed and painful. He is currently scheduled for a procedure with Dr. Pearson this Saturday for a possible re- excision. He states there is a drip of urine from Michel's previous bx spot with every urination. Denies LUTS. No dysuria or GH. No recent UTIs. Denies f/c, n/v, cough, SOB, MARTINEZ, dizziness, bone/abdominal/flank pain. Normal bowel habits. Energy and appetite are good. Pathology 06/28/23 04/28/23 - Do you experience SOB walking two flights of stairs? No - Do you have trouble breathing when you lie flat? No - Have you had a heart attack, blood clot, stroke, or cardiac stent in the past 3 months? No - Do you have a pacemaker or ICD? No - If not, has one been recommended? No - Are you diabetic? Yes - If so, is your blood sugar over 300, three or more days/week? No - Recent AIC? (Over 8?) No , 6.8 Have you previously had anesthesia? yes - If so, was there difficulty placing breathing tube? No ECOG Performance Status Performance status: Karnofsky scale 100 (ECOG grade 0) No limitations Past Medical History He has a past medical history of Diabetes mellitus, Essential hypertension, benign, Penile ca, and Pulmonary embolism. Past Surgical History He has a past surgical history that includes acl reconstruction. Medications He has a current medication list which includes the following prescription(s): ergocalciferol, lisinopril-hydrochlorothiazide, metformin-xr, metoprolol succinate, rosuvastatin, and xarelto. Allergies He has no allergies on file. Social History He reports that he has quit smoking. His smoking use included cigarettes. He has quit using smokeless tobacco. His smokeless tobacco use included chew. He reports current alcohol use of about 4.0 standard drinks of alcohol per week. He reports that he does not use drugs. Family History He family history includes Lung Cancer in his maternal grandmother. Review of Systems Constitutional: No fevers or chills Skin: Negative for rash Endocrine: No heat/cold intolerance Cardiovascular: Negative for chest pain or dyspnea on exertion Respiratory: Negative for shortness of breath or wheezing Gastrointestinal: No constipation, nausea or vomiting Genitourinary: As in HPI Musculoskeletal: No new joint pain, + chronic foot pain Neurological: Negative for frequent headaches or dizziness Lymph/Heme: Negative for leg swelling or calf pain. PHYSICAL EXAM BP 157/86 Pulse 64 Temp 98.7 F (37.1 C) Resp 16 Ht 1.956 m (6' 5) Wt 111.4 kg (245 lb 11.2 oz) SpO2 97% BMI 29.14 kg/m Smoking Status Former Constitutional: NAD, WDWN. HEENT: NCAT. Conjunctivae normal. Cardiovascular: NoJVD. No LE Edema Pulmonary/Chest: Respirations are even and non-labored bilaterally. Bilateral chest rise. Abdominal: Soft. No distension, tenderness, masses or guarding. Neurological: Cranial Nerves II-XII grossly intact. Normal gait. Extremities: KASH. Warm. No cyanosis. Skin: [place], warm and dry. No rashes noted. Psychiatric: Normal mood and affect. Normal insight. CVA = no CVA tenderness Penis = uncircumcised penis, no blood or discharge at meatus, +area of irritation noted around areaof previous bx on penile head Possible groin LAD, fullness noted Diagnostic Tests None currently No results found for: WBC, WBCCOUNT, WBCFETAL, HGB, HCT, PLATELET, MCV Lab Results Component Value Date CREATSERUM 0.66 (L) 08/16/2023 No results found for: LEUKOCESTUR, NITRITE, PROTEIN, UPH, BLOOD, SPECIFICGRAV, KETONES, GLUCOSE Radiographic Studies None relevant Assessment Melodie Medrano Jr. is a 58 y.o. 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 Will treat penile irritation with keflex for 1 week and then topical steroid for 2 weeks. 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 Referral also placed to dermatology for MOHS considerations . Attending Attestation: I, Izaiah Maurer MD, saw and examined the patient. This plan was developed with the SHIPPING CLERK/ADMIN / resident at the time of the visit. The note has been reviewed and I agree with the complete assessment and plan.I provided a substantive portion of the care for this patient. I personally performed all aspects of the medical decision making for this encounter. I have reviewed and verified this documentation and it accurately reflects our care. Summary: We spoke about his condition. I believe malignancy can't conclusively be ruled out despite prior negative biopsy. He also has a urethrocutaneous fistula. I talked to him aobout repair. I doubt it it is malignant. He is not keen on repair right now and is dealing with it. Separately we discussed erythema on the glans. He has a history of penile cancer. Biopsy has not shown malignancy but if the erythema is persistent I am interested in the role of MOHS to remove this area. I am trying empiric antibiotics and steroids to ensure this does not easily respond and have re ferred him to Dr Barnard for MOHS. The erythema has not improved after biopsy and is likely slightly worse. Separately I palpate some possible groin nodes. I would want to get another CT if these are persistently palpable in a month after some antibiotics. He had a recent CT and the antiboitic trial is notcurrently a standard recommendation but I would like to give it a short interval more before repeating the CT. We can also consider penile MRI for additional penile imaging giving the urethrocutaneous fistula and unclear malignancy status. We will reassess in a month. [facility] Instructions* Patient Instructions* Izaiah Maurer MD - 11/04/2023 8:15 AM EDT 1 week antibiotics orally (keflex) 2 weeks topical steroids twice a day (clobetasol) Referral to Dr Akil FLOWER Dermatology Will observe urethrocutaneous fistula for now 4 week exam of groin lymph nodes to decide on next steps for groins at that point documented in [facility] History of Present illness Narrative* Rebeca Kim, CODING EDUCATOR-MIXER ATTENDANT - 08/16/2023 9:00 AM EST Associated Order(s): LESION TREATMENT Post-Procedure Diagnose(s): Malignant neoplasm of penis Images from the original note were not included. HPI Melodie Medrano Bill is a 57 y.o. 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 Presenting History Patient first presented to local tobacco [facility] in January 2021 with an itchy scaly lesion on the undersurface of his penis. On 02/09/21 he underwent a shave biopsy for well-differentiated squamous cell carcinoma. That was then follow up with a MOHS procedure in 03/24/2021. 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 On 06/28/23 the underwent another excision of invasive well-differentiated squamous cell carcinoma, -SM, pT1 NxMx. Patent referred by Dr.Mansour Cantor local medical oncologist. Interval History No updates to his medical history. Feeling well. Denies LUTS. No dysuria or GH. Denies f/c, n/v, cough, SOB, MARTINEZ, dizziness, bone/abdominal/flank pain. Normal bowel habits. Energy and appetite are good. 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 No - Do you have trouble breathing when you lie flat? No - Have you had a heart attack, blood clot, stroke, or cardiac stent in the past 3 months? No - Do you have a pacemaker or ICD? No - If not, has one been recommended? No - Are you diabetic? Yes - If so, is your blood sugar over 300, three or more days/week? No - Recent AIC? (Over 8?) No , 6.8 Have you previously had anesthesia? yes - If so, was there difficulty placing breathing tube? No ECOG Performance Status Performance status: Karnofsky scale 100 (ECOG grade 0) No limitations Past Medical History He has a past medical history of Diabetes mellitus, Essential hypertension, benign, Penile ca, and Pulmonary embolism. Past Surgical History He has a past surgical history that includes acl reconstruction. Medications He has a current medication list which includes the following prescription(s): ergocalciferol, lisinopril-hydrochlorothiazide, metformin-xr, metoprolol succinate, rosuvastatin, and xarelto, and the following Facility-Administered Medications: lidocaine hcl urethral/mucosal. Allergies He has no allergies on file. Social History He reports that he has quit smoking. His smoking use included cigarettes. He has quit using smokeless tobacco. His smokeless tobacco use included chew. He reports current alcohol use of about 4.0 standard drinks of alcohol per week. He reports that he does not use drugs. Family History He family history includes Lung Cancer in his maternal grandmother. Review of Systems Constitutional: No fevers or chills Skin: Negative for rash Endocrine: No heat/cold intolerance Cardiovascular: Negative for chest pain or dyspnea on exertion Respiratory: Negative for shortness of breath or wheezing Gastrointestinal: No constipation, nausea or vomiting Genitourinary: As in HPI Musculoskeletal: No new joint pain, + chronic foot pain Neurological: Negative for frequent headaches or dizziness Lymph/Heme: Negative for leg swelling or calf pain. PHYSICAL EXAM BP 157/86 Pulse 64 Temp 98.7 F (37.1 C) Resp 16 Ht 1.956 m (6' 5) Wt 111.4 kg (245 lb 11.2 oz) SpO2 97% BMI 29.14 kg/m Smoking Status Former Constitutional: NAD, WDWN. HEENT: NCAT. Conjunctivae normal. Cardiovascular: NoJVD. No LE Edema Pulmonary/Chest: Respirations are even and non-labored bilaterally. Bilateral chest rise. Abdominal: Soft. No distension, tenderness, masses or guarding. Neurological: Cranial Nerves II-XII grossly intact. Normal gait. Extremities: KASH. Warm. No cyanosis. Skin: [place], warm and dry. No rashes noted. Psychiatric: Normal mood and affect. Normal insight. CVA = no CVA tenderness Penis = circumcised penis, no blood or discharge at meatus, very small plaques noted on penile head No groin LAD, but fullness noted Diagnostic Tests None currently No results found for: WBC, WBCCOUNT, WBCFETAL, HGB, HCT, PLATELET, MCV Lab Results Component Value Date CREATSERUM 0.66 (L) 08/16/2023 No results found for: LEUKOCESTUR, NITRITE, PROTEIN, UPH, BLOOD, SPECIFICGRAV, KETONES, GLUCOSE Radiographic Studies CT ABDOMEN/PELVIS WITH CONTRAST, 08/16/2023 IMPRESSION: 1. No evidence of metastatic disease. 2. Hepatic steatosis. Assessment Melodie Medrano Jr. is a 57 y.o. 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 Plan Attending Attestation: I, Izaiah Maurer MD, saw and examined the patient. This plan was developed with the SHIPPING CLERK/ADMIN / resident at the time of the visit. The note has been reviewed and I agree with the complete assessment and plan.I provided a substantive portion of the care for this patient. I personally performed all aspects of the medical decision making for this encounter. I have reviewed and verified this documentation and it accurately reflects our care. Summary: I reviewed his CT a/p. I interpreted no evidence of lymphadenopathy. We decided to biopsy small red/white penile area to r/o carcinoma in situ LESION TREATMENT Date/Time: 08/16/2023 9:00 AM Performed by: Izaiah Maurer MD Authorized by: Izaiah Maurer MD The attending physician was present for the entire procedure. Procedure Details: Procedure performed: Biopsy of the penis. 8 mL of lidocaine 1% used to locally anesthetize area. There was/were 1 anogenital lesion(s). Lesion 1 size: 0.5 (cm). The final incision was 0.5 cm in length. The wound(s) was/were closed with Biosin / Monocryl 3-0 sutures. A specimen was collected and was sent for pathology. Post-Procedure Details: Complications: There were no complications. The procedure was tolerated well. Estimated blood loss: minimal The wound was dressed with antibiotic ointment. Post-procedure education provided. Follow up in 10 - 12 days. Pathology results discussion needed at that time. documented in [facility]U [facility] Evaluation + Plan note Future Scheduled Tests Laboratory* Thyroid Stimulating Hormone 08/05/23 * Free T4 08/05/23 * Lipid Profile 08/05/23 * Complete Metabolic Panel 08/05/23 [facility] 01-19-2024 History of Present illness Narrative* Rebeca Kim APRN-CHUCK - 08/02/2023 10:00 AM EST Images from the original note were not included. HPI Melodie Hernandez Mitchell Luther is a 57 y.o. 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 Patient first presented to local tobacco [facility] in January 2021 with an itchy scaly lesion on the undersurface of his penis. On 02/09/21 he underwent a shave biopsy for well-differentiated squamous cell carcinoma. That was then follow up with a MOHS procedure in 03/24/2021. 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 On 06/28/23 the underwent another excision of invasive well-differentiated squamous cell carcinoma, -SM, pT1 NxMx. Patent referred by Dr.Mansour Cantor local medical oncologist.. Denies LUTS. No dysuria or GH. Denies f/c, n/v, cough, SOB, MARTINEZ, dizziness, bone/abdominal/flank pain. Normal bowel habits. Energy and appetite are good. 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 No - Do you have trouble breathing when you lie flat? No - Have you had a heart attack, blood clot, stroke, or cardiac stent in the past 3 months? No - Do you have a pacemaker or ICD? No - If not, has one been recommended? No - Are you diabetic? Yes - If so, is your blood sugar over 300, three or more days/week? No - Recent AIC? (Over 8?) No , 6.8 Have you previously had anesthesia? yes - If so, was there difficulty placing breathing tube? No ECOG Performance Status Performance status: Karnofsky scale 100 (ECOG grade 0) No limitations Past Medical History He has a past medical history of Diabetes mellitus, Essential hypertension, benign, Penile ca, and Pulmonary embolism. Past Surgical History He has a past surgical history that includes acl reconstruction. Medications He has a current medication list which includes the following prescription(s): ergocalciferol, metformin-xr, metoprolol succinate, rosuvastatin, lisinopril- hydrochlorothiazide, and xarelto. Allergies He has no allergies on file. Social History He reports that he has quit smoking. His smoking use included cigarettes. He has quit using smokeless tobacco. His smokeless tobacco use included chew. He reports current alcohol use of about 4.0 standard drinks of alcohol per week. He reports that he does not use drugs. Family History He family history includes Lung Cancer in his maternal grandmother. Review of Systems Constitutional: No fevers or chills Skin: Negative for rash Endocrine: No heat/cold intolerance Cardiovascular: Negative for chest pain or dyspnea on exertion Respiratory: Negative for shortness of breath or wheezing Gastrointestinal: No constipation, nausea or vomiting Genitourinary: As in HPI Musculoskeletal: No new joint pain, + chronic foot pain Neurological: Negative for frequent headaches or dizziness Lymph/Heme: Negative for leg swelling or calf pain. PHYSICAL EXAM BP (!) 165/98 (BP Position: Sitting) Pulse 71 Temp 97.4 F (36.3 C) (Oral) Resp 14 Wt 111.6 kg (246 lb) SpO2 97% Comment: RA Smoking Status Former Constitutional: NAD, WDWN. HEENT: NCAT. Conjunctivae normal. Cardiovascular: NoJVD. No LE Edema Pulmonary/Chest: Respirations are even and non-labored bilaterally. Bilateral chest rise. Abdominal: Soft. No distension, tenderness, masses or guarding. Neurological: Cranial Nerves II-XII grossly intact. Normal gait. Extremities: KASH. Warm. No cyanosis. Skin: [place], warm and dry. No rashes noted. Psychiatric: Normal mood and affect. Normal insight. CVA = no CVA tenderness Penis = circumcised penis, no blood or discharge at meatus, very small plaques noted on penile head No groin LAD, but fullness noted Diagnostic Tests None currently No results found for: WBC, WBCCOUNT, WBCFETAL, HGB, HCT, PLATELET, MCV No results found for: SODIUM, POTASSIUM, CHLORIDE, CO2, BUN, CREATSERUM No results found for: LEUKOCESTUR, NITRITE, PROTEIN, UPH, BLOOD, SPECIFICGRAV, KETONES, GLUCOSE Radiographic Studies None relevant Assessment Melodie Medrano Jr. is a 57 y.o. 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 Plan Attending Attestation: I, Izaiah Maurer MD, saw and examined the patient. This plan was developed with the SHIPPING CLERK/ADMIN / resident at the time of the visit. The note has been reviewed and I agree with the complete assessment and plan.I provided a substantive portion of the care for this patient. I personally performed all aspects of the medical decision making for this encounter. I have reviewed and verified this documentation and it accurately reflects our care. Summary: I spoke to him about his condition. I took photos. I will biopsy his whitish and reddish lesion. Itcould be inflammatory vs malignant. He does not meet indications for groin dissection. He has some suprapubic fat that makes exam a bit difficult so we will obtain CT a/p into the groins for staging.We will obtain pathology for path review. We discussed his diagnosis and management plan above in detail. We discussed indications for groin dissection and risks of lymphedema if he requires down the line following path review or biopsy, namely lymphvascular invasion, high grade, sarcomatoid features, T2 or greater. documented in this encounterOS[facility] Hospital[facility] + Plan note Future Appointments Appointment Date:08/17/2021 08:45:00 AM Scheduled Provider:WANDA FELIPE MD Location:[facility] Appointment Type:[facility] Evaluation + Plan note Future Appointments Appointment Date:01/18/2022 08:30:00 AM Scheduled Provider:WANDA FELIPE MD Location:[facility] Appointment Type:[facility] Evaluation + Plan note Future Appointments Appointment Date:04/26/2022 03:00:00 PM Scheduled Provider:WANDA FELIPE MD Location:[facility] Appointment Type:END[facility] Evaluation + Plan note Future Appointments Appointment Date:11/06/2022 09:00:00 AM Scheduled Provider:WANDA FELIPE MD Location:[facility] Appointment Type:END[facility] Evaluation + Plan note Future Appointments Appointment Date:06/17/2023 04:00:00 PM Scheduled Provider:VIDAL JUAREZ DO Location[facility] Appointment Type: OV Future Scheduled Tests Laboratory* Thyroid Stimulating Hormone 11/07/23 * A1C Hemoglobin 05/08/23 * A1C Hemoglobin 11/07/23 * Lipid Profile 11/07/23 * Albumin/Creatinine Ratio, Random Urine 05/08/23 * Albumin/Creatinine Ratio, Random Urine 11/07/23 * Vitamin D Level 11/07/23 * Complete Metabolic Panel 05/08/23 * Complete Metabolic Panel 11/07/23 [facility] Evaluation + Plan note Future Appointments Appointment Date:01/21/2024 08:30:00 AM Scheduled Provider:VIDAL JUAREZ DO Location:[facility] Appointment Type:PC OV Future Scheduled Tests Laboratory* Basic Metabolic Panel 11/22/23 * Thyroid Stimulating Hormone 02/22/24 * Free T4 02/22/24 * A1C Hemoglobin 02/22/24 * Lipid Profile 02/22/24 * Complete Metabolic Panel 02/22/24 [facility] Evaluation + Plan note Future Appointments Appointment Date:02/25/2024 12:30:00 PM Scheduled Provider:VIDAL JAUREZ DO Location:[facility] Appointment Type: OV Diagnostic Tests Pending * Urine Culture 02/02/24 Future Scheduled Tests Laboratory* Basic Metabolic Panel 11/22/23 * Thyroid Stimulating Hormone 02/22/24 * Free T4 02/22/24 * A1C Hemoglobin 02/22/24 * Lipid Profile 02/22/24 * Complete Metabolic Panel 02/22/24 [facility] Evaluation + Plan note Future Appointments Appointment Date:08/24/2024 03:00:00 PM Scheduled Provider:VIDAL JUAREZ DO Location:[facility] Appointment Type: OV [facility] Evaluation + Plan note Future Appointments Appointment Date:09/08/2024 03:15:00 PM Scheduled Provider:VIDAL JUAREZ DO Location:[facility] Appointment Type: OV [facility] Evaluation noteNo assessment information available [facility] Work Phone: evaluation note* Diagnosis Malignant neoplasm of penis- Primary Malignant neoplasm of penis, part unspecified [facility] Diagnosis Malignant neoplasm of penis- Primary Malignant neoplasm of penis, part unspecified [facility] Diagnosis Malignant neoplasm of penis- Primary Malignant neoplasm of penis, part unspecified [facility]* Diagnosis Malignant neoplasm of penis- Primary Malignant neoplasm of penis, part unspecified [facility] Diagnosis Penile ca Malignant neoplasm of penis, part unspecified [facility] Diagnosis Penile ulcer- Primary Other specified disorder of penis documented [facility] Diagnosis Neoplasm of uncertain behavior of skin- Primary documented [facility] this [facility] Diagnosis Penile mass Unspecified disorder of penis [facility] Diagnosis Abnormal urine- Primary Other nonspecific finding on examination of urine [facility] Diagnosis Penile ca Malignant neoplasm of penis, part unspecified [facility] Diagnosis Penile cancer- Primary Malignant neoplasm of penis, part unspecified [facility] Diagnosis Penile cancer- Primary Malignant neoplasm of penis, part unspecified Malignant neoplasm of penis Malignant neoplasm of penis, part unspecified 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, unspecified laterality [facility] Diagnosis Broken Mina-Burgess drain, initial encounter- Primary [facility] Diagnosis Right groin pain- Primary Abdominal pain, right lower quadrant 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 [facility] Diagnosis Skin wound from surgical incision- Primary 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, unspecified laterality Groin pain, right Penile cancer Malignant neoplasm of penis, part unspecified Abscess Cellulitis and abscess of unspecified site Malignant neoplasm of penis Malignant neoplasm of penis, part unspecified Groin pain, right Abscess Cellulitis and abscess of unspecified site [facility] Diagnosis Penile cancer- Primary Malignant neoplasm of penis, part unspecified [facility] Penile cancer- Primary Malignant neoplasm of penis, part unspecified Left groin pain Abdominal pain, left lower quadrant Penile cancer Malignant neoplasm of penis, part unspecified [facility] Diagnosis Inguinal abscess- Primary Cellulitis and abscess of trunk Infection Unspecified infectious and parasitic diseases Inguinal abscess Cellulitis and abscess of trunk Penile cancer Malignant neoplasm of penis, part unspecified [facility] Diagnosis Penile cancer- Primary Malignant neoplasm of penis, part unspecified Infection of organ or organ space after surgery, subsequent encounter Polymicrobial bacterial infection 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 [facility] Diagnosis Acute kidney injury- Primary Acute kidney failure, unspecified Penile cancer Malignant neoplasm of penis, part unspecified Acute kidney injury Acute kidney failure, unspecified 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, unspecified laterality Atrial fibrillation, unspecified type [facility] Diagnosis Infection of organ or organ space after surgery, subsequent encounter [facility] Diagnosis Penile cancer- Primary Malignant neoplasm of penis, part unspecified [facility] Diagnosis Groin pain, right- Primary 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, unspecified laterality Atrial fibrillation, unspecified type 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 [facility] Diagnosis Penile cancer Malignant neoplasm of penis, part unspecified [facility] Diagnosis Penile cancer- Primary Malignant neoplasm of penis, part unspecified Lymphedema Other lymphedema documented [facility] Diagnosis Other hypospadias- Primary [facility] Diagnosis Weakness of both lower extremities- Primary Tightness of fascia of lower extremity [facility] N[facility] No data available for this section [facility] Discharge instructions No data available for this section [facility] Progress note No data available for this section [facility] Reason for referral (narrative)* Consultation (Routine) - New Request Specialty Diagnoses / Procedures Referred By Sury t Referred To Contact Diagnoses Malignant neoplasm of penis Rebeca Kim, CODING EDUCATOR-MIXER ATTENDANT [address] [place] [address] Sagrario Barnard MD, MPH [address] [facility] [address] [place] [address] Referral ID Status Reason Start Date Expiration Date V isits Requested Visits Authorized [id number] New Request 11/04/2023 11/28/2024 1 1 [facility] for referral (narrative)* Unlisted Procedure Code (Routine) - New Request Specialty Diagnoses / Procedures Referred By Contac t Referred To Contact Procedures NO PHARMACOLOGICAL DVT PROPHYLAXIS Izaiah Maurer MD [address] [place], [place] [id number] Referral ID Status Reason Start Date Expiration Date V isits Requested Visits Authorized [id number] New Request 03/05/2024 03/30/2025 1 1 * Unlisted Procedure Code (Routine) - New Request Specialty Diagnoses / Procedures Referred By Contac t Referred To Contact Procedures DVT/VTE RISK ASSESSMENT Izaiah Maurer MD [address] [place], [place] [id number] Referral ID Status Reason Start Date Expiration Date V isits Requested Visits Authorized [id number] New Request 03/05/2024 03/30/2025 1 1 [facility] for referral (narrative)* Unlisted Procedure Code (Routine) - New Request Specialty Diagnoses / Procedures Referred By Contac t Referred To Contact Procedures PLATELET MONITORING PER PROTOCOL Izaiah Maurer MD [address] [place] [phone] Referral ID Status Reason Start Date Expiration Date V isits Requested Visits Authorized [id number] New Request 03/19/2024 04/13/2025 1 1 * Radiology (Routine) - New Request Specialty Diagnoses / Procedures Referred By Contac t Referred To Contact Procedures US NON VASCULAR EXTREMITY LOWER RIGHT WITHOUT CONTRAST Izaiah Maurer MD [address] [place] [address] Referral ID Status Reason Start Date Expiration Date V isits Requested Visits Authorized [id number] New Request 03/18/2024 04/12/2025 1 1 * Consultation (Routine) - New Request Specialty Diagnoses / Procedures Referred By Contac t Referred To Contact Surgical Oncology / Oncology Diagnoses Groin pain, right Penile cancer Joann Pereira, CODING EDUCATOR-MIXER ATTENDANT [address] [facility] [address] [place] [address] Referral ID Status Reason Start Date Expiration Date V isits Requested Visits Authorized [id number] New Request 03/17/2024 04/11/2025 1 1 * Unlisted Procedure Code (Routine) - New Request Specialty Diagnoses / Procedures Referred By Contac t Referred To Contact Procedures NO MECHANICAL DVT PROPHYLAXIS Izaiah Maurer MD [address] [place] [address] Referral ID Status Reason Start Date Expiration Date V isits Requested Visits Authorized [id number] New Request 03/16/2024 04/10/2025 1 1 * Unlisted Procedure Code (Routine) - New Request Specialty Diagnoses / Procedures Referred By Contac t Referred To Contact Procedures LOW RISK - NO PHARMACOLOGICAL DVT PROPHYLAXIS Izaiah Maurer MD [address] [place] [address] Referral ID Status Reason Start Date Expiration Date V isits Requested Visits Authorized [id number] New Request 03/16/2024 04/10/2025 1 1 * Unlisted Procedure Code (Routine) - New Request Specialty Diagnoses / Procedures Referred By Contac t Referred To Contact Procedures DVT/VTE RISK ASSESSMENT Izaiah Maurer MD [address] [place] [phone] Referral ID Status Reason Start Date Expiration Date V isits Requested Visits Authorized [id number] New Request 03/16/2024 04/10/2025 1 1 [facility] Unlisted Procedure Code (Routine) - New Request Specialty Diagnoses / Procedures Referred By Contac t Referred To Contact Procedures PLATELET MONITORING PER PROTOCOL Izaiah Maurer MD [address] [place] [phone] Referral ID Status Reason Start Date Expiration Date V isits Requested Visits Authorized [id number] New Request 04/09/2024 05/04/2025 1 1 [facility] for referral (narrative)* Consultation (Routine) - New Request Specialty Diagnoses / Procedures Referred By Contac t Referred To Contact Surgical Oncology / Oncology Diagnoses Inguinal abscess Izaiah Maurer MD [address] [place] [phone] Referral ID Status Reason Start Date Expiration Date V isits Requested Visits Authorized [id number] New Request 04/10/2024 05/05/2025 1 1 * (Routine) Specialty Diagnoses / Procedures Referred By Contac t Referred To Contact VIANCA [address] [place] [phone] Referral ID Status Reason Start Date Expiration Date Visits Re quested Visits Authorized * Unlisted Procedure Code (Routine) - New Request Specialty Diagnoses / Procedures Referred By Contac t Referred To Contact Procedures DVT/VTE RISK ASSESSMENT Dason, Izaiah, MD [address] [place] [phone] Referral ID Status Reason Start Date Expiration Date V isits Requested Visits Authorized [id number] New Request 04/09/2024 05/04/2025 1 1 [facility] for referral (narrative)* Consultation (Routine) - New Request Specialty Diagnoses / Procedures Referred By Contac t Referred To Contact Medical Oncology / Oncology Diagnoses Acute kidney injury Suzie Martin PA-C [address] [place], [place] [phone] Referral ID Status Reason Start Date Expiration Date V isits Requested Visits Authorized [id number] New Request 04/22/2024 05/17/2025 1 1 * (Routine) Specialty Diagnoses / Procedures Referred By Contac t Referred To Contact [facility] [address] [place] [phone] Referral ID Status Reason Start Date Expiration Date Visits Re quested Visits Authorized * (Routine) Specialty Diagnoses / Procedures Referred By Contac t Referred To Contact [facility] [address] [place] [phone] Referral ID Status Reason Start Date Expiration Date Visits Re quested Visits Authorized * Unlisted Procedure Code (Routine) - New Request Specialty Diagnoses / Procedures Referred By Contac t Referred To Contact Procedures DVT/VTE RISK ASSESSMENT Megan Grace APRN-CHUCK [address] [place] [phone] Referral ID Status Reason Start Date Expiration Date V isits Requested Visits Authorized [id number] New Request 04/21/2024 05/16/2025 1 1 * Unlisted Procedure Code (Routine) - New Request Specialty Diagnoses / Procedures Referred By Contac t Referred To Contact Procedures PLATELET MONITORING PER PROTOCOL Megan Grace APRN-MIXER ATTENDANT [address] [place] [address] Referral ID Status Reason Start Date Expiration Date V isits Requested Visits Authorized [id number] New Request 04/20/2024 05/15/2025 1 1 * Radiology (Routine) - New Request Specialty Diagnoses / Procedures Referred By Contac t Referred To Contact Procedures US RENAL Dahiana Arizmendi, CODING EDUCATOR-MIXER ATTENDANT [address] [place] [address] Referral ID Status Reason Start Date Expiration Date V isits Requested Visits Authorized [id number] New Request 04/20/2024 05/15/2025 1 1 * MRI/CAT Scan (Emergency) - Closed Specialty Diagnoses / Procedures Referred By Contac t Referred To Contact Procedures CT PELVIS WITHOUT CONTRAST CHG CT PELVIS W/O CONTRAST MATERIAL Marissa Thomson APRN-MIXER ATTENDANT [address] [place] [address] Referral ID Status Reason Start Date Expiration Date Visits Re quested Visits Authorized [id number] Closed 04/20/2024 05/15/2025 1 1 [facility]No reason for referral information availableBlselect [facility] [employer] Work Phone: Reason for visit Narrative* Auth/Cert Specialty Diagnoses / Procedures Referred By Contac t Referred To Contact Diagnoses Right groin pain Izaiah Maurer MD [address] [place] [address] [facility] [address] [place] [phone] Referral ID Status Reason Start Date Expiration Date Visits Re quested Visits Authorized [id number] 1 1 [facility] N[facility]* Auth/Cert Specialty Diagnoses / Procedures Referred By Contac t Referred To Contact Diagnoses infection requiring IV ATB Cyndy Panchal MD [address] [address] [facility] [address] [place] [address] Referral ID Status Reason Start Date Expiration Date Visits Re quested Visits Authorized [id number] 1 1 [facility]* MRI/CAT Scan (Routine) - Closed Specialty Diagnoses / Procedures Referred By Contac t Referred To Contact Diagnoses Penile cancer Procedures CT PELVIS WITH CONTRAST CHG CT PELVIS W/CONTRAST MATERIAL Izaiah Maurer MD [address] [place], [place] [phone] Phone: tel: fax: Referral ID Status Reason Start Date Expiration Date Visits Re quested Visits Authorized [id number] Closed 06/19/2024 07/14/2025 1 1 [facility] Chief Complaint and Reason for Visit Chief Complaint MODERNA VACCINE Chief Complaint PENILE MASS Chief Complaint Admit Date SORE THROAT January 04, 2025 8:38 am Assessments No Assessments Information Available Reason for Referral Specialty Diagnoses / Procedures Referred By Contac t Referred To Contact Diagnoses Infection of organ or organ space after surgery, subsequent encounter Procedures CT ABDOMEN/PELVIS WITH CONTRAST CHG CT ABDOMEN & PELVIS W/CONTRAST MATERIAL Joann Pereiar, CODING EDUCATOR-MIXER ATTENDANT [address] [place] [phone] Referral ID Status Reason Start Date Expiration Date V isits Requested Visits Authorized [id number] New Request 04/14/2024 05/09/2025 1 1 Specialty Diagnoses / Procedures Referred By Contac t Referred To Contact Surgical Oncology / Oncology Diagnoses Infection of organ or organ space after surgery, subsequent encounter Joann Pereira, CODING EDUCATOR-MIXER ATTENDANT [address] [place] [phone] Referral ID Status Reason Start Date Expiration Date V isits Requested Visits Authorized [id number] New Request 04/14/2024 05/09/2025 1 1 Specialty Diagnoses / Procedures Referred By Contac t Referred To Contact Procedures ECG Joann Pereira, CODING EDUCATOR-MIXER ATTENDANT [address] [place] [phone] Referral ID Status Reason Start Date Expiration Date V isits Requested Visits Authorized [id number] New Request 04/13/2024 05/08/2025 1 1 Specialty Diagnoses / Procedures Referred By Contac t Referred To Contact [facility] [address] [place] [phone] Referral ID Status Reason Start Date Expiration Date Visits Re quested Visits Authorized Specialty Diagnoses / Procedures Referred By Contac t Referred To Contact Procedures DVT/VTE RISK ASSESSMENT Cyndy Panchal MD [address] [place] [address] Referral ID Status Reason Start Date Expiration Date V isits Requested Visits Authorized [id number] New Request 04/12/2024 05/07/2025 1 1 Specialty Diagnoses / Procedures Referred By Contac t Referred To Contact Diagnoses Penile ca Procedures CT ABDOMEN/PELVIS WITH CONTRAST CHG CT SCAN,ABDOMENT AND PELVIS,W CONTRAST Rebeca Kim, CODING EDUCATOR-MIXER ATTENDANT [address] [place], [place] [phone] Referral ID Status Reason Start Date Expiration Date Visits Re quested Visits Authorized [id number] Closed 11/12/2023 12/06/2024 1 1 Specialty Diagnoses / Procedures Referred By Contac t Referred To Contact Diagnoses Malignant neoplasm of penis Procedures CT ABDOMEN/PELVIS WITH CONTRAST CHG CT SCAN,ABDOMENT AND PELVIS,W CONTRAST Rebeca Kim, CODING EDUCATOR-MIXER ATTENDANT [address] [place] [phone] Referral ID Status Reason Start Date Expiration Date V isits Requested Visits Authorized [id number] New Request 08/02/2023 08/26/2024 1 1 Advance Directives No Advanced Directives Records Found Date Activated Date Inactivated Comments 01/22/2024 8:33 AM Date Activated Date Inactivated Comments 01/22/2024 8:33 AM Date Activated Date Inactivated Comments 03/05/2024 10:28 AM 03/05/2024 9:21 PM Date Activated Date Inactivated Comments 01/22/2024 8:33 AM 03/05/2024 10:28 AM Date Activated Date Inactivated Comments 03/05/2024 10:28 AM 03/05/2024 9:21 PM Date Activated Date Inactivated Comments 01/22/2024 8:33 AM 03/05/2024 10:28 AM Date Activated Date Inactivated Comments 03/16/2024 6:13 PM Date Activated Date Inactivated Comments 03/05/2024 10:28 AM 03/05/2024 9:21 PM Date Activated Date Inactivated Comments 01/22/2024 8:33 AM 03/05/2024 10:28 AM Date Activated Date Inactivated Comments 03/16/2024 6:13 PM Date Activated Date Inactivated Comments 03/05/2024 10:28 AM 03/05/2024 9:21 PM Date Activated Date Inactivated Comments 01/22/2024 8:33 AM 03/05/2024 10:28 AM Date Activated Date Inactivated Comments 04/12/2024 10:22 PM Date Activated Date Inactivated Comments 03/16/2024 6:13 PM 04/12/2024 10:22 PM Date Activated Date Inactivated Comments 03/05/2024 10:28 AM 03/05/2024 9:21 PM Date Activated Date Inactivated Comments 01/22/2024 8:33 AM 03/05/2024 10:28 AM Date Activated Date Inactivated Comments 04/21/2024 5:42 AM Date Activated Date Inactivated Comments 04/12/2024 10:22 PM 04/21/2024 5:42 AM Date Activated Date Inactivated Comments 03/16/2024 6:13 PM 04/12/2024 10:22 PM Date Activated Date Inactivated Comments 03/05/2024 10:28 AM 03/05/2024 9:21 PM Date Activated Date Inactivated Comments 01/22/2024 8:33 AM 03/05/2024 10:28 AM Date Activated Date Inactivated Comments 04/21/2024 5:42 AM Date Activated Date Inactivated Comments 04/12/2024 10:22 PM 04/21/2024 5:42 AM Date Activated Date Inactivated Comments 03/16/2024 6:13 PM 04/12/2024 10:22 PM Date Activated Date Inactivated Comments 03/05/2024 10:28 AM 03/05/2024 9:21 PM Date Activated Date Inactivated Comments 01/22/2024 8:33 AM 03/05/2024 10:28 AM Summary Purpose Family History Relationship Condition Age at Onset Recorded Date/T kelsey mother Venous thrombosis Unknown grandmother Venous thrombosis Unknown Malignant neoplasm Unknown father Cardiac disease Unknown No Family History Records Found Additional Source Comments Care Team (unrecognized sect ion and content) Care Team Personnel Name: RUBEN ZAMORA MD Position: P4 Physician - Primary Care Med Service: Active Provider Member Role: Primary Care Physician Address: Address: [address] [place] [address] Care Team Related Persons Name: MENDOZA MEDRANO Address: Home [address] Care Team Personnel Name: MARY BETH NO Position: P4 Advanced Practice Nurse Med Service: Active Provider Member Role: Primary Care Physician Address: Address: [address] [place] [address] Care Team Related Persons Name: MENDOZA MEDRANO Address: Home [address] Patient Care team informatio n (unrecognized section and content) Team Status: Active Member Role Status Dates Dr. Ruben Zamora MD Family Provider Active Dr. Ruben Zamora MD Primary Care Provider Active Team Status: Inactive Member Role Status Dates Dr. Ruben Zamora MD Primary Care Provider Active Dr. Asmita Garza MD Attending Provider, Referr ing Provider Active Curriculum And Instruction Specialist Relationship Specialty Start Date End Date Vidal Juarez DO [address] [place], [place] [phone] PCP - General Family Medicine 11/04/23 Rebekah Lafleur, RN Registered Nurse 08/19/23 Kylee Cantor, [facility] [address] [place] [address] Oncologist Medical Oncology 08/19/23 Curriculum And Instruction Specialist Relationship Specialty Start Date End Date Vidal Juarez DO [address] [place] [address] PCP - General Family Medicine 11/04/23 Rebekah Lafleur, RN Registered Nurse 08/19/23 Kylee Cantor, [facility] [address] [place] [address] Oncologist Medical Oncology 08/19/23 Curriculum And Instruction Specialist Relationship Specialty Start Date End Date Vidal Juarez DO [address] [place] [address] PCP - General Family Medicine 11/04/23 Rebekah Lafleur, RN Registered Nurse 08/19/23 Kylee Cantor, [facility] [address] [place] [address] Oncologist Medical Oncology 08/19/23 Curriculum And Instruction Specialist Relationship Specialty Start Date End Date Vidal Juarez DO [address] [place] [address] PCP - General Family Medicine 11/04/23 Rebekah Lafleur, RN Registered Nurse 08/19/23 Kylee Cantor, [facility] [address] [place] [address] Oncologist Medical Oncology 08/19/23 Curriculum And Instruction Specialist Relationship Specialty Start Date End Date Vidal Juarez DO [address] [place] [address] PCP - General Family Medicine 11/04/23 Rebekah Lafleur, RN Registered Nurse 08/19/23 Kylee Cantor, [facility] [address] [place] [address] Oncologist Medical Oncology 08/19/23 Curriculum And Instruction Specialist Relationship Specialty Start Date End Date Vidal Juarez DO [facility] [place] [address] PCP - General Family Medicine 11/04/23 Rebekah Lafleur, RN Registered Nurse 08/19/23 Kylee Cantor, [facility] [address] [place] [address] Oncologist Medical Oncology 08/19/23 Curriculum And Instruction Specialist Relationship Specialty Start Date End Date Vidal Juarez DO [address] [place] [address] PCP - General Family Medicine 11/04/23 Rebekah Lafleur, RN Registered Nurse 08/19/23 Kylee Cantor, [facility] [address] [place] [address] Oncologist Medical Oncology 08/19/23 Curriculum And Instruction Specialist Relationship Specialty Start Date End Date Vidal Juarez DO [address] [place] [address] PCP - General Family Medicine 11/04/23 Rebekah Lafleur, RN Registered Nurse 08/19/23 Kylee Cantor, [facility] [address] [place] [address] Oncologist Medical Oncology 08/19/23 Curriculum And Instruction Specialist Relationship Specialty Start Date End Date Vidal Juarez DO [address] [place] [address] PCP - General Family Medicine 11/04/23 Rebekah Lafleur, RN Registered Nurse 08/19/23 Kylee Cantor, [facility] [address] [place] [address] Oncologist Medical Oncology 08/19/23 Curriculum And Instruction Specialist Relationship Specialty Start Date End Date Vidal Juarez DO [address] [place] [address] PCP - General Family Medicine 11/04/23 Rebekah Lafleur, RN Registered Nurse 08/19/23 Kylee Cantor, [facility] [address] [place] [address] Oncologist Medical Oncology 08/19/23 Curriculum And Instruction Specialist Relationship Specialty Start Date End Date Vidla Juarez DO [address] [place] [address] PCP - General Family Medicine 11/04/23 Rebekah Lafleur, RN Registered Nurse 08/19/23 Kylee Cantor, [facility] [address] [place] [address] Oncologist Medical Oncology 08/19/23 Curriculum And Instruction Specialist Relationship Specialty Start Date End Date Vidal Juarez DO [address] [place] [address] PCP - General Family Medicine 11/04/23 Rebekah Lafleur, RN Registered Nurse 08/19/[address] [facility] [address] [place] [address] Oncologist Medical Oncology 08/19/23 Andres Baird, director of search engine marketing 03/17/24 Curriculum And Instruction Specialist Relationship Specialty Start Date End Date Vidal Juarez DO [address] [place] [address] (Work) PCP - General Family Medicine 11/04/23 Rebekah Lafleur, [place] Registered Nurse 08/19/23 Kylee Cantor, [facility] [address] [place] [address] Oncologist Medical Oncology 08/19/23 Andres Baird, director of search engine marketing 03/17/24 Curriculum And Instruction Specialist Relationship Specialty Start Date End Date Vidal Juarez DO [address] [place] [address] PCP - General Family Medicine 11/04/23 Rebekah Lafleur, [place] Registered Nurse 08/19/[address] [facility] [address] [place] [address] Oncologist Medical Oncology 08/19/23 Andres Baird, director of search engine marketing 03/17/24 Curriculum And Instruction Specialist Relationship Specialty Start Date End Date Vidal Juarez DO [address] [place] [address] PCP - General Family Medicine 11/04/23 Rebekah Lafleur, [place] Registered Nurse 08/19/[address] [facility] [address] [place], [place] [address] Oncologist Medical Oncology 08/19/23 Andres Baird, director of search engine marketing 03/17/24 Curriculum And Instruction Specialist Relationship Specialty Start Date End Date Vidal Juarez DO [address] [place] [address] PCP - General Family Medicine 11/04/23 Rebekah Lafleur, [place] Registered Nurse 08/19/[address] [facility] [address] [place] [address] Oncologist Medical Oncology 08/19/23 Andres Baird, director of search engine marketing 03/17/24 Beau Davalos, [facility] Pharmacist Infectious Disease 04/14/24 05/25/24 Misael Jane [facility],PharmD Pharmacist Infectious Disease 04/14/2406/07 Adryan Velazquez DO [address] [place] [id number] Infectious Disease Infectious Disease 04/14/24 Isa Hodgson MBBS [address] [place] [id number] Infectious Disease Infectious Disease 04/14/24 4 Liliana Redman, RN Registered Nurse Infectious Disease 04/14/24 05/25/24 Curriculum And Instruction Specialist Relationship Specialty Start Date End Date Vidal Juarez DO [address] [place] [address] PCP - General Family Medicine 11/04/23 Rebekah Lafleur, RN Registered Nurse 08/19/23 Kylee Cantor, [facility] [address] [place], [place] [address] Oncologist Medical Oncology 08/19/23 Andres Baird, director of search engine marketing 03/17/24 Beau Davalos, [facility] Pharmacist Infectious Disease 04/14/24 05/25/24 Misael Jane [facility],PharmD Pharmacist Infectious Disease 04/14/2406/07 Adryan Velazquez DO [address] [place] [address] Infectious Disease Infectious Disease 04/14/24 4 Isa Mao MBBS [address] [place] [address] Infectious Disease Infectious Disease 04/14/24 4 Liliana Redman, [place] Registered Nurse Infectious Disease 04/14/24 05/25/24 Curriculum And Instruction Specialist Relationship Specialty Start Date End Date Vidal Juarez DO [address] [place] [address] PCP - General Family Medicine 11/04/23 Rebekah Lafleur, RN Registered Nurse 08/19/23 Kylee Cantor, [facility] [address] [place], [place] [address] Oncologist Medical Oncology 08/19/23 Andres Baird, director of search engine marketing 03/17/24 Beau Davalos, [facility] Pharmacist Infectious Disease 04/14/24 05/25/24 Misael Jane RPh,PharmD Pharmacist Infectious Disease 04/14/2406/07 Adryan Velazquez DO [address] [place] [address] Infectious Disease Infectious Disease 04/14/24 4 Isa Mao MBBS [address] [address] Infectious Disease Infectious Disease 04/14/24 4 Liliana Redman, [place] Registered Nurse Infectious Disease 04/14/24 05/25/24 Curriculum And Instruction Specialist Relationship Specialty Start Date End Date Vidal Juarez DO [address] [place] [address] PCP - General Family Medicine 11/04/23 Rebekah Lafleur, RN Registered Nurse 08/19/23 Kylee Cantor, [facility] [address] [place] [address] Oncologist Medical Oncology 08/19/23 Andres Baird, director of search engine marketing 03/17/24 Beau Davalos, [facility] Pharmacist Infectious Disease 04/14/24 05/25/24 Misael Jane RPh,PharmD Pharmacist Infectious Disease 04/14/2406/07 Adryan Velazquez DO [address] [place] [address] Infectious Disease Infectious Disease 04/14/24 4 Isa Mao MBBS [address] [place] [address] Infectious Disease Infectious Disease 04/14/24 4 Liliana Redman, RN Registered Nurse Infectious Disease 04/14/24 05/25/24 Curriculum And Instruction Specialist Relationship Specialty Start Date End Date Vidal Juarez DO [address] [place] [phone] PCP - General Family Medicine 11/04/23 Rebekah Lafleur, [place] Registered Nurse 08/19/[address] [facility] [address] [place], [place] [address] Oncologist Medical Oncology 08/19/23 Andres Baird, director of search engine marketing 03/17/24 Beau Davalos, [facility] Pharmacist Infectious Disease 04/14/24 05/25/24 Misael Jane [facility],PharmD Pharmacist Infectious Disease 04/14/2406/07 Adryan Velazquez DO [address] [place] [address] Infectious Disease Infectious Disease 04/14/24 4 Isa Mao MBBS [address] [place] [address] Infectious Disease Infectious Disease 04/14/24 4 Liliana Redman, RN Registered Nurse Infectious Disease 04/14/24 05/25/24 Curriculum And Instruction Specialist Relationship Specialty Start Date End Date Vidal Juarez DO [address] [place] [phone] PCP - General Family Medicine 11/04/23 Rebekah Lafleur, RN Registered Nurse 08/19/23 Kylee Cantor, [facility] [address] [place] [address] Oncologist Medical Oncology 08/19/23 Curriculum And Instruction Specialist Relationship Specialty Start Date End Date Vidal Juarez DO [address] [place] [phone] (Work) PCP - General Family Medicine 11/04/23 Rebekah Lafleur, RN Registered Nurse 08/19/23 [facility] [address] [place] [address] Oncologist Medical Oncology 08/19/23 Curriculum And Instruction Specialist Relationship Specialty Start Date End Date Vidal Juarez DO [address] [place] [phone] PCP - General Family Medicine 11/04/23 Rebekah Lafleur, RN Registered Nurse 08/19/23 [facility] [address] [place] [address] Referring Provider Medical Oncology 08/19/23 Team Status: Active Member Role Status Dates Dr. Ruben Zamora MD Family Provider Active Dr. Vidal Juarez DO Primary Care Provider Active Team Status: Inactive Member Role Status Dates Dr. Vidal Juarez DO Primary Care Provider Active Start: January 04, 2025 End: January 04, 2025 Dr. Vidal Juarez DO Referring Provider Active Start: January 04, 2025 End: January 04, 2025 Trent WYATT, PA Attending Provider Active Start: January 04, 2025 End: January 04, 2025 Goals (unrecognized section and content) Goals may be documented in a n alternate section Reason for Visit (unrecogniz ed section and content) Reason Comments New Patient Specialty Diagnoses / Procedures Referred By Contac t Referred To Contact Urology Diagnoses penile sparkle Procedures NEW SURG HussainKylee saleh, [facility] [address] [place] [address] Izaiah Maurer MD [address] [place] [address] Referral ID Status Reason Start Date Expiration Date V isits Requested Visits Authorized [id number] New Request 08/02/2023 08/26/2024 1 1 Reason Comments Follow-up Reason Comments Follow-up Discuss surgery Specialty Diagnoses / Procedures Referred By Contac t Referred To Contact Diagnoses Penile ca Procedures CT ABDOMEN/PELVIS WITH CONTRAST CHG CT SCAN,ABDOMENT AND PELVIS,W CONTRAST Rebeca Kim, CODING EDUCATOR-MIXER ATTENDANT [address] [place] [address] Referral ID Status Reason Start Date Expiration Date Visits Re quested Visits Authorized [id number] Closed 11/12/2023 12/06/2024 1 1 Reason Comments Consult Specialty Diagnoses / Procedures Referred By Contac t Referred To Contact Dermatology Diagnoses Malignant neoplasm of penis Rebeca Kim, CODING EDUCATOR-MIXER ATTENDANT [address] [place] [address] Sagrario Barnard MD, MPH [address] [place] [address] Referral ID Status Reason Start Date Expiration Date V isits Requested Visits Authorized [id number] New Request 11/21/2023 12/15/2024 1 1 Reason Comments Surgery Specialty Diagnoses / Procedures Referred By Contac t Referred To Contact Diagnoses Penile mass Penile mass [N48.89] Procedures [place] AMPUTATION PENIS PARTIAL AMPUTATION PENIS PARTIAL Izaiah Maurer MD [address] [place] [address] [facility] [address] [place] [id number] Referral ID Status Reason Start Date Expiration Date Visits Re quested Visits Authorized [id number] 1 1 Reason Comments Follow-up Void trial Specialty Diagnoses / Procedures Referred By Contac t Referred To Contact Diagnoses Penile ca Procedures CT ABDOMEN/PELVIS WITH CONTRAST CHG CT ABDOMEN & PELVIS W/CONTRAST MATERIAL Rebeca Kim, CODING EDUCATOR-MIXER ATTENDANT [address] [place], [place] [phone] Referral ID Status Reason Start Date Expiration Date Visits Re quested Visits Authorized [id number] Closed 12/16/2023 01/09/2025 1 1 Specialty Diagnoses / Procedures Referred By Contac t Referred To Contact Diagnoses Malignant neoplasm of penis Malignant neoplasm of penis [C60.9] Procedures KS INGUINOFEM LMPHADEC SUPFC W/CLOQUETS NODE SPX LYMPHADENECTOMY INGUINOFEMORAL ROBOTIC Izaiah Maurer MD [address] [place] [address] Referral ID Status Reason Start Date Expiration Date Visits Re quested Visits Authorized [id number] 02/14/2024 1 1 Reason Comments Post-Op Problem Reason Comments Groin Pain Reason Comments Post-Op Problem Specialty Diagnoses / Procedures Referred By Contrj t Referred To Contact Diagnoses Penile cancer Izaiah Maurer MD [address] [place] [address] [facility] [address] [place] [address] Referral ID Status Reason Start Date Expiration Date Visits Re quested Visits Authorized [id number] Reason Comments Drain Nausea Specialty Diagnoses / Procedures Referred By Contrj t Referred To Contact Diagnoses Acute kidney injury Catalina Vyas MD [address] [place] [phone] [facility] [address] [place], [place] [phone] Referral ID Status Reason Start Date Expiration Date Visits Re quested Visits Authorized [id number] 1 1 Specialty Diagnoses / Procedures Referred By Contac t Referred To Contact Diagnoses Infection of organ or organ space after surgery, subsequent encounter Procedures CT ABDOMEN/PELVIS WITH CONTRAST CHG CT ABDOMEN & PELVIS W/CONTRAST MATERIAL Joann Pereira, CODING EDUCATOR-MIXER ATTENDANT [address] [place] [address] Referral ID Status Reason Start Date Expiration Date Visits Re quested Visits Authorized [id number] Closed 04/14/2024 05/09/2025 1 1 Reason Comments Post-Discharge Follow Up Reason Comments Follow-up Surgical questions Reason Comments New Patient Specialty Diagnoses / Procedures Referred By Contac t Referred To Contact Urology Diagnoses Penile cancer Izaiah Maurer MD [address] [place] [address] Phone: tel: fax: Referral ID Status Reason Start Date Expiration Date V isits Requested Visits Authorized [id number] New Request 09/25/2024 10/20/2025 1 1 Reason Comments PT Eval Specialty Diagnoses / Procedures Referred By Contac t Referred To Contact Physical Therapy / PHYSICAL THERAPY Diagnoses Neuropathy Procedures PHYSICAL THERAPY EVALUATION HIGH COMPLEX 45 MINS THERAPEUTIC EXERCISES RE, EA 15 MIN. NEW RS PT NEURO NEUROPATHY Vidal Juarez, [address] [place] [address] Phone: tel: fax: Ruben Wilson, PT, DPT Referral ID Status Reason Start Date Expiration Date V isits Requested Visits Authorized [id number] Authorized 07/15/2024 07/14/2025 99 99 Scheduled Active and Recently Administ ered Medications (unrecognized section and content) Medication Order 01/20/2024 01/21/2024 01/22/2024 Acetaminophen (TYLENOL) tablet 650 mg 650 mg, Oral, EVERY 6 HOURS, First dose on Sat01/22/24 at 1330, Until Discontinued, Maximum dose of acetaminophen is 4000 mg from all sources in 24 hours., Post-op/Post-Proc 1330 (Canceled Entry - Provider: System Discharge - Comment: Automatically canceled at discontinue of medication order) Ibuprofen (MOTRIN) tablet 600 mg 600 mg, Oral, EVERY 6 HOURS, First dose on Sat01/22/24 at 1330, Until Discontinued, Give with food, Post-op/Post-Proc 1330 (Canceled Entry - Provider: System Discharge - Comment: Automatically canceled at discontinue of medication order) Scopolamine (TRANSDERM-SCOP) patch 1 patch(Linked Group 1) 1 patch, Transdermal, ONCE, 1 dose, On Sat01/22/24 at 0945, Apply patch to site behind the ear. Rotate sites for each application. Do not cut or alter patch. Each patch delivers 1 mg over 72 hours. 0917 (Patch Applied - Provider: Cathy Atkinson RN - Comment: right ear)1449 (Due: Patch Removed - Provider: System Discharge - Comment: Time automatically adjusted from order being discontinued) VERIFY LINKED PATCH PLACEMENT(Linked Group 1) Other, EVERY 12 HOURS, First dose on Sat01/22/24 at 0915, Until Discontinued, Confirm continued adhesion of scopolamine 1.5 mg/72hr patch at documented site. 0915 (Canceled Entry - Provider: System Discharge - Comment: Automatically canceled at discontinue of medication order) Continuous Medication Order 01/20/2024 01/21/2024 01/22/2024 Lactated ringers IV solution Intravenous, at 100 mL/hr, CONTINUOUS, Starting on Sat01/22/24 at 1330, Until Sat01/22/24 at 1650, Saline lock when tolerating oral intake and remove IV per ASU protocol., Post-op/Post-Proc 1330 (Canceled Entry - Provider: System Discharge - Comment: Automatically canceled at discontinue of medication order) PRN Medication Order 01/20/2024 01/21/2024 01/22/2024 bacitracin-polymyxin b (POLYSPORIN) [id number] UNIT/GM ointment (CANCELED) NEEDED, Starting on Sat01/22/24 at 1145, Until Sat01/22/24 at 1154, Intra-op/Intra-Proc 1145 (Given - Provid er: Izaiah Maurer MD - Comment: penis) BUPivacaine (MARCAINE) injection (CANCELED) NEEDED, Starting on Sat01/22/24 at 1142, Until Sat01/22/24 at 1154, Intra-op/Intra-Proc 1142 (Given - Provid er: Izaiah Maurer MD - Comment: penis) ceFAZolin (ANCEF) 2 g in dextrose 100 mL premix IVPB (COMPLETED) 2 g, Intravenous, Administer over 30 Minutes, MARBLE WORKER TO PROCEDURE, 1 dose, Starting on Sat01/22/24 at 0833, Until Sat01/22/24 at 1024, Other, Surgical Prophylaxis, Initiate antibiotic administration 30-60 minutes prior to surgical incision and complete administration prior to surgical incision., Pre-op/Pre-Proc 1024 ($$New Bag$$ - Provider: Alice Hawk APRN-HAT BRIM AND CROWN LAMINATING OPERATOR) fentaNYL (SUBLIMAZE) injection 25 mcg 25 mcg, Intravenous, Administer over 2 Minutes, EVERY 5 MINUTES NEEDED, 6 doses, Starting on Sat01/22/24 at 1137, Until Sat01/22/24 at 1650, Severe Pain, Moderate Pain, Additional dose may be administered only if first dose did not result in adverse effects (RR<10, decrease in level of consciousness) and was previously documented as ineffective. May give a total of 150mcg in PACU. If pain unrelieved after 150mcg, notify Anesthesia provider., Recovery Haloperidol lactate (HALDOL) injection 1 mg (COMPLETED) 1 mg, Intravenous, ONCE NEEDED, 1 dose, Starting on Sat01/22/24 at 1137, Until Sat01/22/24 at 1219, FIRST line Nausea/vomiting,, If patient still experiencing nausea/vomiting after 1st dose use 2nd line antiemetic, Recovery 1219 (Given - Provid er: Britta Scott RN) hydrALAZINE (APRESOLINE) injection 5 mg 5 mg, Intravenous, EVERY 15 MINUTES NEEDED, 4 doses, Starting on Sat01/22/24 at 1137, Until Sat01/22/24 at 1650, SBP > 160 mmHg with HR <60 bpm, SECOND line HTN, For SBP > 160 Use if HR < 60. Administer over 2 minutes. May give a total of 20 mg while in PACU. Notify MD if BP still uncontrolled after 20 mg and no other antihypertensive agents are ordered., Recovery Labetalol (NORMODYNE) injection 5 mg 5 mg, Intravenous, EVERY 15 MINUTES NEEDED, 4 doses, Starting on Sat01/22/24 at 1137, Until Sat01/22/24 at 1650, SBP > 160 mmHg with HR >60 bpm, FIRST line HTN. , For SBP > 160 Hold if HR < 60 and give SECOND line agent. May give a total of 20 mg while in PACU. If blood pressure uncontrolled after 20mg of labetalol administered, use second line agent or notify MD. For vials: labetalol should be treated as a SINGLE USE VIAL. Discard remaining contents after one use., Recovery Ondansetron 4mg/2ml (ZOFRAN) injection 4 mg 4 mg, Intravenous, EVERY 4 HOURS NEEDED, Starting on Sat01/22/24 at 1321, Until Sat01/22/24 at 1650, Nausea / Vomiting, 1st line, Post-op/Post-Proc oxyCODONE (ROXICODONE) tablet 5 mg 5 mg, Oral, EVERY 6 HOURS NEEDED, Starting on Sat01/22/24 at 1321, Until Sat01/22/24 at 1650, Severe Pain, Post-op/Post-Proc 1338 (Given - Provid er: Romy Salinas RN - Comment: requesting for 2 hr ride home) oxyCODONE (ROXICODONE) tablet 5 mg 5 mg, Oral, EVERY 4 HOURS NEEDED, 2 doses, Starting on Sat01/22/24 at 1137, Until Sat01/22/24 at 1650, Mild Pain, Recovery Prochlorperazine (COMPAZINE) injection 5 mg 5 mg, Intravenous, Administer over 5 Minutes, EVERY 1 HOUR NEEDED, Starting on Sat01/22/24 at 1137, Until Sat01/22/24 at 1650, Refractory Nausea Vomiting, SECOND Line, Use if patient still experiencing nausea/vomiting after 1st line antiemetic. For IV route: dilute dose with 10mL normal saline and give by slow IV push at a rate of 5mg/min. Maximum of 40mg/day., Recovery Linked Groups Order Group 1: Scopolamine (TRANSDERM-SCOP) patch 1 patchJump to med 1 patch, Transdermal, ONCE, 1 dose, On Sat01/22/24 at 0945, Apply patch to site behind the ear. Rotate sites for each application. Do not cut or alter patch. Each patch delivers 1 mg over 72 hours. And VERIFY LINKED PATCH PLACEMENTJump to med Other, EVERY 12 HOURS, First dose on Sat01/22/24 at 0915, Until Discontinued, Confirm continued adhesion of scopolamine 1.5 mg/72hr patch at documented site. Scheduled Medication Order 03/04/2024 03/05/2024 03/06/2024 Acetaminophen (TYLENOL) tablet 650 mg 650 mg, Oral, EVERY 4 HOURS, First dose on Renetta 03/05/24 at 2200, Until Discontinued, Maximum dose of acetaminophen is 4000 mg from all sources in 24 hours. 2203 (Given - Provider: Misty Pugh RN) 0328 (Given - Provider: Misty Pugh RN)0553 (Given - Provider: Misty Pugh RN)1001 (Given - Provider: Maricruz Candelario RN)1400 (Canceled Entry - Provider: System Discharge - Comment: Automatically canceled at discontinue of medication order) Acetaminophen (TYLENOL) tablet 975 mg (COMPLETED) 975 mg, Oral, ONCE, 1 dose, On Renetta 03/05/24 at 1030, Maximum dose of acetaminophen is 4000 mg from all sources in 24 hours., Pre-op/Pre-Proc 1204 (Given - Provider: Catalina Hernandez RN) amLODIPine (NORVASC) tablet 5-10 mg 5-10 mg, Oral, DAILY, First dose on Sat03/06/24 at 0900, Until Discontinued 0836 (Given - Provid er: Maricruz Candelario RN) ceFAZolin (ANCEF) 2 g in dextrose 100 mL premix IVPB 2 g, Intravenous, Administer over 30 Minutes, EVERY 8 HOURS NON-STANDARD, 3 doses, First dose on Sat03/06/24 at 0100, Last dose on Sat03/06/24 at 1700 0032 ($$New Bag$$ - Provider: Misty Pugh RN)0102 (Stopped - Provider: Misty Pugh RN)0834 ($$New Bag$$ - Provider: Maricruz Candelario RN) Docusate (COLACE) capsule 100 mg 100 mg, Oral, 2 TIMES DAILY, First dose on Sat03/06/24 at 0900, Until Discontinued 0835 (Given - Provid er: Maricruz Candelario RN) Enoxaparin Sodium (LOVENOX) injection 40 mg (COMPLETED) 40 mg, Subcutaneous, ONCE, 1 dose, On Sat03/06/24 at 1315, DO NOT ADMINISTER ON DAY OF SURGERY/INVASIVE PROCEDURE UNLESS OTHERWISE DIRECTED., Indications: DVT/PE prophylaxis 1243 (Given - Provid er: Maricruz Candelario RN) faMOTIdine (PEPCID) tablet 20 mg(Linked Group 1) 20 mg, Oral, EVERY 12 HOURS, 4 doses, First dose on Renetta 03/05/24 at 2130, Last dose on Sat03/07/24 at 0900 2204 (Given - Provider: Misty Pugh RN) 0835 (Given - Provider: Maricruz Candelario RN) famotidine (PF) (PEPCID) injection 20 mg(Linked Group 1) 20 mg, Intravenous, EVERY 12 HOURS, 4 doses, First dose on Renetta 03/05/24 at 2130, Last dose on Sat03/07/24 at 0900, Administer undiluted by slow IV push at a rate not to exceed 10mg/min. 2204 (See Alternative - Provider: Misty Pugh RN) 0835 (See Alternative - Provider: Maricruz Candelario RN) Gabapentin (NEURONTIN) capsule 300 mg (COMPLETED) 300 mg, Oral, ONCE, 1 dose, On Sat03/05/24 at 1030, Pre-op/Pre-Proc 1204 (Given - Provider: Catalina Hernandez, RN) Heparin injection 5,000 Units (COMPLETED) 5,000 Units, Subcutaneous, ONCE, 1 dose, On Sat03/05/24 at 1030, Pre-op/Pre-Proc 1204 (Given - Provider: Catalina Hernandez, RN) Heparin injection 5,000 Units (COMPLETED) 5,000 Units, Subcutaneous, ONCE, 1 dose, On Sat03/06/24 at 0045, DO NOT ADMINISTER ON DAY OF SURGERY/INVASIVE PROCEDURE UNLESS OTHERWISE DIRECTED. 0042 (Given - Provid er: Misty Pugh RN) Insulin lispro (HUMALOG) injection 2 Units (COMPLETED)(Linked Group 2) 2 Units, Subcutaneous, ONCE, 1 dose, On Renetta 03/05/24 at 1645, . Warning! Confirm patient. If insulin pen is used, then the pen is for labeled individual patient use ONLY., Intra-op/Intra-Proc 1610 (Given - Provider: Ac Villalta MD) Insulin lispro (HUMALOG) injection (CANCELED)(Linked Group 3) Subcutaneous, 4 TIMES DAILY WITH MEALS & AT BEDTIME, First dose on Sat03/05/24 at 2200, Until Discontinued, Insulin to carb ratio: Standard: 1 unit insulin = 10 grams carbs every meal and at bedtime Correction Factor: 151-200 = 1 unit; 201-250 = 2 units; 251-300 = 3 units; 301-350 = 4 units; 351-400 = 5 units; Kwikpen: Prime pen before each injection; refer to Pen Priming and Care Handout for further details. Warning! Confirm patient. Insulin pen is for labeled individual patient use ONLY. 2202 (Given - Provider: Misty Pugh RN) Insulin regular (HUMULIN R;NOVOLIN R) injection (CANCELED) Subcutaneous, EVERY 6 HOURS, First dose on Sat03/06/24 at 0600, Until Discontinued, Correction factor parameters most appropriate for NPO or tube feeding patients: Blood glucose under 60 = call H.O.; 151 - 200 = 2 units; 201 - 250 = 4 units; 251 - 300 = 6 units; 301 - 350 = 8 units; 351 - 400 = 10 units; Over 400 = call H.O. An initial vial will be sent from the pharmacy without prompting. Replacement vials require a MAR request when needed. Call pharmacy to coordinate expedited delivery if an emergent dose is needed for hyperglycemia treatment. 58 (Given - Provid er: Misty Pugh RN) Insulin regular (HUMULIN R;NOVOLIN R) injection(Linked Group 4) Subcutaneous, 4 TIMES DAILY WITH MEALS & AT BEDTIME, First dose (after last modification) on Sat03/06/24 at 1200, Until Discontinued, Correction factor parameters most appropriate for NPO or tube feeding patients: Blood glucose under 60 = call H.O.; 151 - 200 = 2 units; 201 - 250 = 4 units; 251 - 300 = 6 units; 301 - 350 = 8 units; 351 - 400 = 10 units; Over 400 = call H.O. An initial vial will be sent from the pharmacy without prompting. Replacement vials require a MAR request when needed. Call pharmacy to coordinate expedited delivery if an emergent dose is needed for hyperglycemia treatment. 1244 (Given - Provid er: Maricruz Candelario RN) Ketorolac (TORADOL) injection 15 mg 15 mg, Intravenous, EVERY 6 HOURS, 4 doses, First dose on Sat03/06/24 at 0000, Last dose on Sat03/06/24 at 1800 0032 (Given - Provid er: Misty Pugh RN)0554 (Given - Provider: Misty Pugh RN)1212 (Given - Provider: Maricruz Candelario RN) Magnesium sulfate 4 g in sterile water 50 ml premix IVPB (COMPLETED) 4 g, Intravenous, Administer over 4 Hours, ONCE, 1 dose, On Sat03/05/24 at 2000 2116 ($$New Bag$$ - Provider: Misty Pugh RN)2116 (Rate/Dose Verify - Provider: Misty Pugh RN)2321 (Rate/Dose Verify - Provider: Misty Pugh RN) 0030 (Stopped - Provider: Misty Pugh RN) Metoprolol succinate (TOPROL-XL) tablet XL 50 mg 50 mg, Oral, DAILY, First dose on Sat03/06/24 at 0900, Until Discontinued, Slow release product. Do not crush. Extended release can be cut in half. 0836 (Given - Provid er: Maricruz Candelario RN) Rosuvastatin (CRESTOR) tablet 10 mg 10 mg, Oral, DAILY, First dose on Sat03/06/24 at 0900, Until Discontinued 0836 (Given - Provid er: Maricruz Candelario RN) Scopolamine (TRANSDERM-SCOP) patch 1 patch (CANCELED)(Linked Group 5) 1 patch, Transdermal, ONCE, 1 dose, On Sat03/05/24 at 1030, Contact anesthesiology prior to administration for patient with glaucoma. Each patch delivers 1 mg over 72 hours., Pre-op/Pre-Proc 1204 (Patch Applied - Provider: Catalina Hernandez RN)2132 (Canceled Entry - Provider: Misty Pugh RN - Comment: Time automatically adjusted from order being discontinued) sodium phosphate 30 mmol in Sodium chloride 0.9%, with overfill 285 mL (total volume) IVPB (COMPLETED) 30 mmol, Intravenous, Administer over 4 Hours, ONCE, 1 dose, On Sat03/06/24 at 0800 0829 ($$New Bag$$ - Provider: Maricruz Candelario RN)1004 (Paused - Provider: Maricruz Candelario RN)1011 (Paused - Provider: Maricruz Candelario RN)1021 (Paused - Provider: Maricruz Candelario RN)1021 (Restarted - Provider: Maricruz Candelario RN)1025 (Rate/Dose Verify - Provider: Maricruz Candelario RN)1033 (Paused - Provider: Maricruz Candelario RN)1036 (Restarted - Provider: Maricruz Candelario RN)1204 (Rate/Dose Verify - Provider: Maricruz Candelario RN)1220 (Stopped - Provider: Maricruz Candelario RN) Tamsulosin HCl (FLOMAX) capsule 0.4 mg 0.4 mg, Oral, DAILY, First dose on Sat03/06/24 at 0900, Until Discontinued, Slow release product. Do not chew or crush 0836 (Given - Provid er: Maricruz Candelario RN) Continuous Medication Order 03/04/2024 03/05/2024 03/06/2024 Lactated ringers IV solution (CANCELED) Intravenous, at 20 mL/hr, CONTINUOUS, Starting on Sat03/05/24 at 1030, Until Sat03/05/24 at 2049, Pre-op/Pre-Proc 1301 ($$New Bag$$ - Provider: Ac Villalta MD)1525 ($$New Bag$$ - Provider: Ac Villalta MD) Lactated ringers IV solution (CANCELED) Intravenous, at 125 mL/hr, CONTINUOUS, Starting on Sat03/05/24 at 2000, Until Sat03/06/24 at 1031 1953 ($$New Bag$$ - Provider: Nick Montoya RN)2109 (Paused - Provider: Misty Pugh RN)2112 (Paused - Provider: Misty Pugh RN)2113 (Restarted - Provider: Misty Pugh RN)2112 (Stopped - Provider: Misty Pugh RN)2113 (Stopped - Provider: Misty Pugh RN)2114 ($$New Bag$$ - Provider: Misty Pugh RN)211 (Rate/Dose Verify - Provider: Misty Pugh RN)2321 (Rate/Dose Verify - Provider: Misty Pugh RN) 0032 (Paused - Provider: Misty Pugh RN)0102 (Restarted - Provider: Misty Pugh RN)0326 (Rate/Dose Verify - Provider: Misty Pugh RN)0329 (Stopped - Provider: Misty Pugh RN)0329 (Stopped - Provider: Misty Pugh RN)0329 ($$New Bag$$ - Provider: Misty Pugh RN)0330 (Paused - Provider: Misty Pugh RN)0332 (Restarted - Provider: Misty Pugh RN)0602 (Rate/Dose Verify - Provider: Misty Pugh RN)1011 (Paused - Provider: Maricruz Candelario RN)1021 (Paused - Provider: Maricruz Candelario RN)1021 (Restarted - Provider: Maricruz Candelario RN) PRN Medication Order 03/04/2024 03/05/2024 03/06/2024 alum/mag hydrox.-simethicone oral suspension 30 mL 30 mL, Oral, EVERY 6 HOURS NEEDED, Starting on Sat03/05/24 at 2121, Until Sat03/06/24 at 1628, Indigestion, Per 5 mL is equivalent to: (Alum-Mag Hydroxide 200-225 mg and Simethicone 20 mg) and (Alum-Mag Hydroxide 200-200 mg and Simethicone 20 mg) BUPivacaine (MARCAINE) injection (CANCELED) NEEDED, Starting on Renetta 03/05/24 at 1718, Until Renetta 03/05/24 at 1759, Intra-op/Intra-Proc 1718 (Given - Provider: Franco Maurer MD) ceFAZolin (ANCEF) 2 g in dextrose 100 mL premix IVPB (COMPLETED) 2 g, Intravenous, Administer over 30 Minutes, MARBLE WORKER TO PROCEDURE, 1 dose, Starting on Sat03/05/24 at 1028, Until Sat03/05/24 at 1700, Other, Surgical Prophylaxis, Initiate antibiotic administration 30-60 minutes prior to surgical incision and complete administration prior to surgical incision., Pre-op/Pre-Proc 1315 ($$New Bag$$ - Provider : Ac Villalta MD)1700 (Bolus - Provider: Ac Villalta MD) Dextrose 50% injection 7.5-25 g(Linked Group 4) 7.5-25 g, Intravenous, ADMINISTER DIRECTED, Starting on Sat03/06/24 at 1026, Until Sat03/06/24 at 1628, Blood glucose <80 mg/dL, For patients who are not alert, are NPO, or are on IV insulin infusion administer as directed per Hypoglycemia in Non- Adults Clinical Practice Guideline. For Blood Glucose: 60-79 mg/dL administer 7.5 gm (15ml); 45-59 mg/dL administer 12.5 gm (25ml); less than 45mg/dL administer 25gm (50ml). ++ If additional dextrose 50% needed, contact pharmacy or obtain from crash cart ++ glucose (GLUTOSE) 40 % oral gel 1-2 Tube(Linked Group 4) 1-2 Tube, Oral, ADMINISTER DIRECTED, Starting on Sat03/06/24 at 1026, Until Sat03/06/24 at 1628, Blood glucose <80 mg/dL, For patients who are alert, able to tolerate PO intake and with intact cognitive status administer as directed per Hypoglycemia in Non- Adults Clinical Practice Guideline. For Blood Glucose: 60-79 mg/dL administer 1 tube; 45-59 mg/dl administer 1.5 tubes; less than 45 mg/dL administer 2 tubes. Each tube of 37.5g delivers 15g of carbohydrate. HYDROmorphone (DILAUDID) injection 0.5 mg (CANCELED) 0.5 mg, Intravenous, EVERY 10 MINUTES NEEDED, 8 doses, Starting on Renetta 03/05/24 at 1736, Until Sat03/05/24 at 2049, Moderate Pain, Severe Pain, May give a total of 4mg in PACU., Recovery 1818 (Given - Provider: Nick Montoya, RN)1830 (Given - Provider: Nick Montoya, RN) Ondansetron (ZOFRAN) tablet 4 mg(Linked Group 6) 4 mg, Oral, EVERY 6 HOURS NEEDED, Starting on Renetta 03/05/24 at 2121, Until Sat03/06/24 at 1628, Nausea / Vomiting, 1st line Ondansetron 4mg/2ml (ZOFRAN) injection 4 mg(Linked Group 6) 4 mg, Intravenous, EVERY 6 HOURS NEEDED, Starting on Renetta 03/05/24 at 2121, Until Sat03/06/24 at 1628, Nausea / Vomiting, 1st line oxyCODONE (ROXICODONE) tablet 5 mg(Linked Group 7) 5 mg, Oral, EVERY 6 HOURS NEEDED, Starting on Renetta 03/05/24 at 2121, Until Sat03/06/24 at 1628, Moderate Pain, Severe Pain, Use as initial dose. Higher dose may be administered if lower dose was previously documented as ineffective and did not result in adverse effects (RR<10, negative change in RASS of 2 or more). 2238 (Given - Provider: Reema Pugh RN) oxyCODONE HCl (ROXICODONE) tablet 10 mg(Linked Group 7) 10 mg, Oral, EVERY 6 HOURS NEEDED, Starting on Renetta 03/05/24 at 2121, Until Sat03/06/24 at 1628, Moderate Pain, Severe Pain, Higher dose may be administered if lower dose was previously documented as ineffective and did not result in adverse effects (RR<10, negative change in RASS of 2 or more). Decrease back to lower dose if patient has adverse effects or no PRN use in previous 12 hours. Hold for sedation. 2238 (See Alternative - Provider: Misty Pugh RN) Sodium chloride 0.9% IV solution 250 mL Intravenous, at 20 mL/hr, NEEDED, Starting on Renetta 03/05/24 at 2121, Until Sat03/06/24 at 1628, Carrier Fluid - See Admin. Inst, 250mL 0.9NS to be used as carrier fluid for intermittent small volume or piggyback medication administration as needed. Infusion rate of the carrier fluid should be set at 20 mL/hr unless the rate as the intermittent medication is less than 20 mL/hr. For intermittent medications with a rate less than 20 mL/hr set the carrier fluid at that rate of the intermittent or piggy back medication. Linked Groups Order Group 1: famotidine (PF) (PEPCID) injection 20 mgJump to med 20 mg, Intravenous, EVERY 12 HOURS, 4 doses, First dose on Renetta 03/05/24 at 2130, Last dose on 03/07/24 at 0900, Administer undiluted by slow IV push at a rate not to exceed 10mg/min. Or faMOTIdine (PEPCID) tablet 20 mgJump to med 20 mg, Oral, EVERY 12 HOURS, 4 doses, First dose on Renetta 03/05/24 at 2130, Last dose on Sat03/07/24 at 0900 Group 2: Insulin lispro (HUMALOG) injection 2 Units (COMPLETED)Jump to med 2 Units, Subcutaneous, ONCE, 1 dose, On Renetta 03/05/24 at 1645, . Warning! Confirm patient. If insulin pen is used, then the pen is for labeled individual patient use ONLY., Intra-op/Intra-Proc And Dextrose 50% injection 7.5-25 g (CANCELED) 7.5-25 g, Intravenous, ADMINISTER DIRECTED, Starting on Renetta 03/05/24 at 1605, Until Sat03/05/24 at 2048, Blood glucose <80 mg/dL, For patients who are not alert, are NPO, or are on IV insulin infusion administer as directed per Hypoglycemia in Non- Adults Clinical Practice Guideline. For Blood Glucose: 60-79 mg/dL administer 7.5 gm (15ml); 45-59 mg/dL administer 12.5 gm (25ml); less than 45mg/dL administer 25gm (50ml). ++ If additional dextrose 50% needed, contact pharmacy or obtain from [facility] cart ++, Intra-op/Intra-Proc Group 3: Insulin lispro (HUMALOG) injection (CANCELED)Jump to med Subcutaneous, 4 TIMES DAILY WITH MEALS & AT BEDTIME, First dose on Renetta 03/05/24 at 2200, Until Discontinued, Insulin to carb ratio: Standard: 1 unit insulin = 10 grams carbs every meal and at bedtime Correction Factor: 151-200 = 1 unit; 201-250 = 2 units; 251-300 = 3 units; 301-350 = 4 units; 351-400 = 5 units; Kwikpen: Prime pen before each injection; refer to Pen Priming and Care Handout for further details. Warning! Confirm patient. Insulin pen is for labeled individual patient use ONLY. And Insulin lispro (HUMALOG) injection (CANCELED) Subcutaneous, NEEDED, Starting on Sat03/05/24 at 2121, Until Sat03/06/24 at 0009, Other, As needed for snacks, Insulin to carb ratio: Standard: 1 unit insulin = 10 grams carbs Correction Factor: not to be used with this order. Kwikpen: Prime pen before each injection; refer to Pen Priming and Care Handout for further details. Warning! Confirm patient. Insulin pen is for labeled individual patient use ONLY. And BLOOD GLUCOSE (POC DEVICE) (CANCELED) Routine, 4 TIMES DAILY BEFORE MEALS & AT BEDTIME, First occurrence on Sat03/06/24 at 0745, If any Blood Glucose (POC) is greater than 300mg/dl, then repeat Blood Glucose (POC) in 2 hours. If the initial blood glucose was greater than 300mg/dl and if second blood glucose is greater than 200md/dl, then notify Order Make Up Clerk. And BLOOD GLUCOSE (POC DEVICE) (CANCELED) Routine, DIRECTED, Starting on Sat03/05/24 at 1, Until Specified, For all Blood Glucose LESS THAN 80 mg/dL, treat per Hypoglycemia in Non- Adults Clinical Practice Guideline (CPG) and recheck glucose 15 min after treatment. Repeat per CPG until glucose GREATER THAN 80 mg/dL. Once glucose IS GREATER THAN 80 mg/dL, recheck Blood Glucose every 1 hour x2, then resume as previously ordered. For Blood Glucose LESS THAN 80 mg/dL on admission OR LESS than 45 mg/dL at any time, obtain POC Blood Glucose every 4 hours for 6 occurrences AFTER treating per CPG. Obtain blood glucose for symptoms of hypoglycemia: sweating, shaking, fatigue, rapid pulse, slow thinking & dizziness. Notify physician w/results. Obtain blood glucose for symptoms of hyperglycemia: excessive thirst, blurred vision, excessive urination & tiredness. Notify physician w/results. If patient NPO, obtain POC Blood Glucose prior to administration of any insulin products. And COMMUNICATION ORDER FOR NURSING CARE: For Blood Glucose LESS THAN 80 mg/dl (CANCELED) Routine, CONTINUOUS, Starting on Sat03/05/24 at 2121, Until Specified, For Blood Glucose LESS THAN 80 mg/dl follow Hypoglycemia in Non- Adults Clinical Practice Guideline (CPG) And Dextrose 50% injection 7.5-25 g (CANCELED) 7.5-25 g, Intravenous, ADMINISTER DIRECTED, Starting on Sat03/05/24 at 2120, Until Sat03/06/24 at 0009, Blood glucose <80 mg/dL, For patients who are not alert, are NPO, or are on IV insulin infusion administer as directed per Hypoglycemia in Non- Adults Clinical Practice Guideline. For Blood Glucose: 60-79 mg/dL administer 7.5 gm (15ml); 45-59 mg/dL administer 12.5 gm (25ml); less than 45mg/dL administer 25gm (50ml). ++ If additional dextrose 50% needed, contact pharmacy or obtain from crash cart ++ And glucose (GLUTOSE) 40 % oral gel 1-2 Tube (CANCELED) 1-2 Tube, Oral, ADMINISTER DIRECTED, Starting on Sat03/05/24 at 2120, Until Sat03/06/24 at 0009, Blood glucose <80 mg/dL, For patients who are alert, able to tolerate PO intake and with intact cognitive status administer as directed per Hypoglycemia in Non- Adults Clinical Practice Guideline. For Blood Glucose: 60-79 mg/dL administer 1 tube; 45-59 mg/dl administer 1.5 tubes; less than 45 mg/dL administer 2 tubes. Each tube of 37.5g delivers 15g of carbohydrate. And NOTIFY PHYSICIAN, Blood Glucose LESS THAN 80 mg/dl (CANCELED) Routine, CONTINUOUS, Starting on Sat03/05/24 at 2121, Until Specified, Who to Notify: Order Make Up Clerk, For all Blood Glucose LESS THAN 80 mg/dl, notify Order Make Up Clerk after treatment per Hypoglycemia in Non- Adults Clinical Practice Guideline And Carbohydrate counts with meals (CANCELED) Routine, CONTINUOUS, Starting on Sat03/05/24 at 2121, Until Specified, Carbohydrate counts are to be done after each patient meal and with snack. Group 4: Insulin regular (HUMULIN R;NOVOLIN R) injectionJump to med Subcutaneous, 4 TIMES DAILY WITH MEALS & AT BEDTIME, First dose (after last modification) on Sat03/06/24 at 1200, Until Discontinued, Correction factor parameters most appropriate for NPO or tube feeding patients: Blood glucose under 60 = call H.O.; 151 - 200 = 2 units; 201 - 250 = 4 units; 251 - 300 = 6 units; 301 - 350 = 8 units; 351 - 400 = 10 units; Over 400 = call H.O. An initial vial will be sent from the pharmacy without prompting. Replacement vials require a MAR request when needed. Call pharmacy to coordinate expedited delivery if an emergent dose is needed for hyperglycemia treatment. And BLOOD GLUCOSE (POC DEVICE) (CANCELED) Routine, 4 TIMES DAILY BEFORE MEALS & AT BEDTIME, First occurrence on Sat03/06/24 at 1030, If any Blood Glucose (POC) is greater than 300mg/dl, treat per correction factor orders; and repeat Blood Glucose (POC) in 2 hours if second blood glucose is greater than 200mg/dl, then notify dimension warehouse supervisor. And BLOOD GLUCOSE (POC DEVICE) (CANCELED) Routine, PRN, Starting on Sat03/06/24 at 1026, Until Specified, For all Blood Glucose LESS THAN 80 mg/dL, treat per Hypoglycemia in Non- Adults Clinical Practice Guideline (CPG) and recheck glucose 15 min after treatment. Repeat per CPG until glucose GREATER THAN 80 mg/dL. Once glucose IS GREATER THAN 80 mg/dL, recheck Blood Glucose every 1 hour x2, then resume as previously ordered. For Blood Glucose LESS THAN 80 mg/dL on admission OR LESS than 45 mg/dL at any time, obtain POC Blood Glucose every 4 hours for 6 occurrences AFTER treating per CPG. Obtain blood glucose for symptoms of hypoglycemia: sweating, shaking, fatigue, rapid pulse, slow thinking & dizziness. Notify physician w/results. Obtain blood glucose for symptoms of hyperglycemia: excessive thirst, blurred vision, excessive urination & tiredness. Notify physician w/results. If patient NPO, obtain POC Blood Glucose prior to administration of any insulin products. And COMMUNICATION ORDER FOR NURSING CARE: For Blood Glucose LESS THAN 80 mg/dl (CANCELED) Routine, CONTINUOUS, Starting on Sat03/06/24 at 1027, Until Specified, For Blood Glucose LESS THAN 80 mg/dl follow Hypoglycemia in Non- Adults Clinical Practice Guideline (CPG) And Dextrose 50% injection 7.5-25 gJump to med 7.5-25 g, Intravenous, ADMINISTER DIRECTED, Starting on Sat03/06/24 at 1026, Until Sat03/06/24 at 1628, Blood glucose <80 mg/dL, For patients who are not alert, are NPO, or are on IV insulin infusion administer as directed per Hypoglycemia in Non- Adults Clinical Practice Guideline. For Blood Glucose: 60-79 mg/dL administer 7.5 gm (15ml); 45-59 mg/dL administer 12.5 gm (25ml); less than 45mg/dL administer 25gm (50ml). ++ If additional dextrose 50% needed, contact pharmacy or obtain from crash cart ++ And glucose (GLUTOSE) 40 % oral gel 1-2 TubeJump to med 1-2 Tube, Oral, ADMINISTER DIRECTED, Starting on Sat03/06/24 at 1026, Until Sat03/06/24 at 1628, Blood glucose <80 mg/dL, For patients who are alert, able to tolerate PO intake and with intact cognitive status administer as directed per Hypoglycemia in Non- Adults Clinical Practice Guideline. For Blood Glucose: 60-79 mg/dL administer 1 tube; 45-59 mg/dl administer 1.5 tubes; less than 45 mg/dL administer 2 tubes. Each tube of 37.5g delivers 15g of carbohydrate. And NOTIFY PHYSICIAN, Blood Glucose LESS THAN 80 mg/dl (CANCELED) Routine, CONTINUOUS, Starting on Sat03/06/24 at 1027, Until Specified, Who to Notify: Order Make Up Clerk, For all Blood Glucose LESS THAN 80 mg/dl, notify Order Make Up Clerk after treatment per Hypoglycemia in Non- Adults Clinical Practice Guideline Group 5: Scopolamine (TRANSDERM-SCOP) patch 1 patch (CANCELED)Jump to med 1 patch, Transdermal, ONCE, 1 dose, On Sat03/05/24 at 1030, Contact anesthesiology prior to administration for patient with glaucoma. Each patch delivers 1 mg over 72 hours., Pre-op/Pre-Proc And VERIFY LINKED PATCH PLACEMENT (CANCELED) Other, EVERY 12 HOURS, First dose on Sat03/05/24 at 1030, Until Discontinued, Confirm continued adhesion of scopolamine 1.5 mg/72hr patch at documented site. Group 6: Ondansetron 4mg/2ml (ZOFRAN) injection 4 mgJump to med 4 mg, Intravenous, EVERY 6 HOURS NEEDED, Starting on Renetta 03/05/24 at 2121, Until Sat03/06/24 at 1628, Nausea / Vomiting, 1st line Or Ondansetron (ZOFRAN) tablet 4 mgJump to med 4 mg, Oral, EVERY 6 HOURS NEEDED, Starting on Renetta 03/05/24 at 2121, Until Sat03/06/24 at 1628, Nausea / Vomiting, 1st line Group 7: oxyCODONE (ROXICODONE) tablet 5 mgJump to med 5 mg, Oral, EVERY 6 HOURS NEEDED, Starting on Renetta 03/05/24 at 2121, Until Sat03/06/24 at 1628, Moderate Pain, Severe Pain, Use as initial dose. Higher dose may be administered if lower dose was previously documented as ineffective and did not result in adverse effects (RR<10, negative change in RASS of 2 or more). Or oxyCODONE HCl (ROXICODONE) tablet 10 mgJump to med 10 mg, Oral, EVERY 6 HOURS NEEDED, Starting on Renetta 03/05/24 at 2121, Until Sat03/06/24 at 1628, Moderate Pain, Severe Pain, Higher dose may be administered if lower dose was previously documented as ineffective and did not result in adverse effects (RR<10, negative change in RASS of 2 or more). Decrease back to lower dose if patient has adverse effects or no PRN use in previous 12 hours. Hold for sedation. Scheduled Medication Order 03/14/2024 03/15/2024 03/16/2024 clindamycin (CLEOCIN) 900 mg in normal saline 50 ml premix IVPB (COMPLETED) 900 mg, Intravenous, Administer over 30 Minutes, ONCE, 1 dose, On Sat03/16/24 at 1500 1522 ($$New Bag$$ - Provider: Micah Webb RN)1747 (Stopped - Provider: Micah Webb RN) iohexol (OMNIPAQUE) 350 MG/ML injection 1-171 mL (COMPLETED) 1-171 mL, Intravenous, ONCE, 1 dose, On Sat03/16/24 at 1345, Extravasation Risk, CT Procedure 1340 (Given - Radiol ogy - Provider: Gregorio Tschirner) Lactated ringers IV solution 1,000 mL (COMPLETED) 1,000 mL, Intravenous, ONCE, 1 dose, On Sat03/16/24 at 1330 1328 ($$New Bag$$ - Provider: Alice Thakkar RN)1430 (Stopped - Provider: Alice Thakkar RN) Lactated ringers IV solution 1,000 mL (COMPLETED) 1,000 mL, Intravenous, ONCE, 1 dose, On Sat03/16/24 at 1530 1506 ($$New Bag$$ - Provider: Micah Webb RN)1747 (Stopped - Provider: Micah Webb RN) oxyCODONE HCl (ROXICODONE) tablet 10 mg (COMPLETED) 10 mg, Oral, ONCE, 1 dose, On Sat03/16/24 at 1300 1247 (Given - Provid er: Alice Thakkar RN) Piperacillin-tazobactam (ZOSYN) 4.5 g in dextrose premix IVPB (COMPLETED) 4.5 g, Intravenous, Administer over 0.5 Hours, ONCE, 1 dose, On Sat03/16/24 at 1430, Infuse STAT doses over 30 minutes. Infuse other doses over 4 hours. Contains a penicillin., Indications: Empiric therapy 1444 ($$New Bag$$ - Provider: Alice Thakkar RN)1538 (Stopped - Provider: Micah Webb RN) Piperacillin-tazobactam (ZOSYN) 4.5 g in dextrose premix IVPB 4.5 g, Intravenous, Administer over 4 Hours, EVERY 8 HOURS NON-STANDARD, First dose on Sat03/16/24 at 2030, Until Discontinued, Infuse STAT doses over 30 minutes. Infuse other doses over 4 hours. Contains a penicillin., Indications: Empiric therapy Vancomycin HCl in NaCl (Vancocin) 2,000 mg 295 ml premade IVPB (COMPLETED) 2,000 mg, Intravenous, Administer over 2 Hours, ONCE, 1 dose, On Sat03/16/24 at 1300 1329 ($$New Bag$$ - Provider: Alice Thakkar RN)1538 (Stopped - Provider: Micah Webb RN) PRN Medication Order 03/14/2024 03/15/2024 03/16/2024 Sodium chloride (PF) 0.9 % injection 1-100 mL (COMPLETED) 1-100 mL, Intravenous, ONCE NEEDED, 1 dose, Starting on Sat03/16/24 at 1339, Until Sat03/16/24 at 1339, Flush, CT Procedure 1339 (Given - Provid er: Gregorio Neil) Scheduled Medication Order 03/18/2024 03/19/2024 03/20/2024 amLODIPine (NORVASC) tablet 5 mg 5 mg, Oral, DAILY, First dose (after last reorder) on Sat03/17/24 at 0900, Until Discontinued 0951 (Given - Provider: Gayle Obrien RN) 0731 (Given - Provider: Gayle Obrien RN) 0942 (Given - Provider: Rebekah Knox RN)1227 (MAR Hold - Provider: Automatic Transfer - Reason: Transfer to a Procedural area)1516 (MAR Unhold - Provider: Automatic Transfer) Docusate (COLACE) capsule 100 mg 100 mg, Oral, 2 TIMES DAILY, First dose on Sat03/16/24 at 1815, Until Discontinued 0950 (Given - Provider: Gayle Obrien RN)1649 (Given - Provider: Gayle Obrien RN) 0731 (Given - Provider: Gayle Obrien RN)1505 (Not Given - Provider: Gayle Obrien RN - Reason: Patient/family refused) 0942 (Not Given - Provider: Rebekah Knox RN - Reason: Patient/family refused)1227 (MAR Hold - Provider: Automatic Transfer - Reason: Transfer to a Procedural area)1516 (MAR Unhold - Provider: Automatic Transfer)1700 (Canceled Entry - Provider: System Discharge - Comment: Automatically canceled at discontinue of medication order) faMOTIdine (PEPCID) tablet 20 mg (COMPLETED)(Linked Group 1) 20 mg, Oral, EVERY 12 HOURS, 4 doses, First dose on Sat03/16/24 at 2100, Last dose on Sat03/18/24 at 0900 0950 (Given - Provider: Gayle Obrien RN) Gabapentin (NEURONTIN) capsule 100 mg 100 mg, Oral, 3 TIMES DAILY, First dose on Sat03/18/24 at 2100, Until Discontinued 2146 (Given - Provider: Charlie Haile RN) 0733 (Given - Provider: Gayle Obrien RN)1418 (Given - Provider: Gayle Obrien RN)2144 (Given - Provider: Charlie Haile RN) 0943 (Given - Provider: Rebekah Knox RN)1227 (MAR Hold - Provider: Automatic Transfer - Reason: Transfer to a Procedural area)1400 (Automatically Held - Provider: Automatic Transfer)1516 (SEP Unhold - Provider: Automatic Transfer)1623 (Given - Provider: Agnieszka Dumont RN - Comment: pt at procedure time med was due) Heparin injection 5,000 Units (COMPLETED)(Linked Group 2) 5,000 Units, Subcutaneous, EVERY 8 HOURS (0800/1600/2200), 1 dose, First dose on Renetta 03/19/24 at 2200 2144 (Given - Provider: Charlie Haile RN) Insulin lispro (HUMALOG) injection(Linked Group 3) Subcutaneous, 3 TIMES DAILY BEFORE MEALS, First dose on 03/16/24 at 1900, Until Discontinued, Correction Factor: 151-175 = 1 unit; 176-200 = 2 units; 201-225 = 3 units; 226-250 = 4 units; 251-275 = 5 units; 276-300 = 6 units; 301-325 = 7 units; 326-350 = 8 units; Kwikpen: Prime pen before each injection; refer to Pen Priming and Care Handout for further details. Warning! Confirm patient. Insulin pen is for labeled individual patient use ONLY. 0841 (Given - Provider: Gayle Obrien RN)1041 (Not Given - Provider: Gayle Obrien RN - Reason: NPO - Comment: Too close to another)1650 (Given - Provider: Gayle Obrien RN) 0927 (Not Given - Provider: Gayle Obrien RN - Reason: Order Parameters not met)1008 (Not Given - Provider: Gayle Obrien RN - Reason: Patient/family refused)1505 (Not Given - Provider: Gayle Obrien RN - Reason: Patient/family refused) 0943 (Not Given - Provider: Rebekah Knox RN - Reason: NPO)1227 (MAR Hold - Provider: Automatic Transfer - Reason: Transfer to a Procedural area)1516 (MAR Unhold - Provider: Automatic Transfer)1525 (Not Given - Provider: Agnieszka Dumont RN - Reason: NPO)1600 (Canceled Entry - Provider: System Discharge - Comment: Automatically canceled at discontinue of medication order) iohexol (OMNIPAQUE) 350 MG/ML injection 1-171 mL (COMPLETED) 1-171 mL, Intravenous, ONCE, 1 dose, On Sat03/18/24 at 1715, Extravasation Risk, CT Procedure 1701 (Given - Radiology - Provider: Dulce Haskins) lidocaine 4 % patch 2 patch 2 patch, Transdermal, Administer over 12 Hours, EVERY 24 HOURS, First dose on Sat03/17/24 at 1200, Until Discontinued, Apply to right upper thigh, 1 on each side of ROSA MARIA . 1223 (Not Given - Provider: Gayle Obrien RN - Reason: Patient/family refused) 1008 (Not Given - Provider: Gayle Obrien RN - Reason: Patient/family refused) 1200 (Canceled Entry - Provider: System Discharge - Comment: Automatically canceled at discontinue of medication order)1227 (MAR Hold - Provider: Automatic Transfer - Reason: Transfer to a Procedural area)1516 ([facility] Unhold - Provider: Automatic Transfer) Lisinopril (PRINIVIL) tablet 30 mg 30 mg, Oral, DAILY, First dose on Sat03/16/24 at 2130, Until Discontinued 1649 (Given - Provider: Gayle Obrien RN) 2144 (Given - Provider: Charlie Haile RN) 1227 ([facility] Hold - Provider: Automatic Transfer - Reason: Transfer to a Procedural area)1516 ([facility] Unhold - Provider: Automatic Transfer)1800 (Canceled Entry - Provider: System Discharge - Comment: Automatically canceled at discontinue of medication order) Magnesium sulfate 1 g in dextrose 5% 100 mL premix IVPB (COMPLETED) 1 g, Intravenous, at 100 mL/hr, Administer over 60 Minutes, ONCE, 1 dose, On Renetta 03/19/24 at 0800 0745 ($$New Bag$$ - Provider: Gayle Obrien RN)1004 (Stopped - Provider: Gayle Obrien RN) Magnesium sulfate 1 g in dextrose 5% 100 mL premix IVPB (COMPLETED)(Linked Group 4) 1 g, Intravenous, at 100 mL/hr, Administer over 60 Minutes, ONCE, 1 dose, On Sat03/20/24 at 0815 0949 ($$New Bag$$ - Provider: Rebekah Knox RN)1053 (Stopped - Provider: Agnieszka Dumont RN)1057 (Stopped - Provider: Agnieszka Dumont RN) Magnesium sulfate 1 g in dextrose 5% 100 mL premix IVPB (COMPLETED)(Linked Group 4) 1 g, Intravenous, at 100 mL/hr, Administer over 60 Minutes, ONCE, 1 dose, On Sat03/20/24 at 0915 1058 ($$New Bag$$ - Provider: Agnieszka Dumont RN)1112 (Paused - Provider: Agnieszka Dumont RN)1120 (Restarted - Provider: Agnieszka Dumont RN)1209 (Stopped - Provider: Agnieszka Dumont RN)1212 (Stopped - Provider: Agnieszka Dumont RN) Magnesium sulfate 1 g in dextrose 5% 100 mL premix IVPB (COMPLETED)(Linked Group 4) 1 g, Intravenous, at 100 mL/hr, Administer over 60 Minutes, ONCE, 1 dose, On Sat03/20/24 at 1015 1212 ($$New Bag$$ - Provider: Agnieszka Dumont RN)1314 (Stopped - Provider: Agnieszka Dumont RN) Magnesium sulfate 4 g in sterile water 50 ml premix IVPB (COMPLETED) 4 g, Intravenous, at 12.5 mL/hr, Administer over 4 Hours, ONCE, 1 dose, On Sat03/18/24 at 0600 0541 ($$New Bag$$ - Provider: Chely Morales RN)0941 (Stopped - Provider: Gayle Obrien RN) Metoprolol succinate (TOPROL-XL) tablet XL 50 mg 50 mg, Oral, DAILY, First dose on Sat03/17/24 at 0900, Until Discontinued, Slow release product. Do not crush. Extended release can be cut in half. 0951 (Given - Provider: Gayle Obrien RN) 0732 (Given - Provider: Gayle Obrien RN) 0944 (Given - Provider: Rebekah Knox RN)1227 (MAR Hold - Provider: Automatic Transfer - Reason: Transfer to a Procedural area)1516 ([facility] Unhold - Provider: Automatic Transfer) Polyethylene glycol (MIRALAX) packet 17 g 17 g, Oral, DAILY, First dose on Sat03/17/24 at 0900, Until Discontinued 0952 (Not Given - Provider: Gayle Obrien RN - Reason: Patient/family refused) 0744 (Not Given - Provider: Gayle Obrien RN - Reason: NPO) 0943 (Not Given - Provider: Rebekah Knox RN - Reason: Patient/family refused)1227 ([facility] Hold - Provider: Automatic Transfer - Reason: Transfer to a Procedural area)1516 ([facility] Unhold - Provider: Automatic Transfer) Potassium chloride 10 mEq in sterile water 100 ml premix IVPB (COMPLETED) 10 mEq, Intravenous, Administer over 60 Minutes, ONCE, 1 dose, On Sat03/19/24 at 0800 0746 ($$New Bag$$ - Provider: Gayle Obrien RN)1004 (Stopped - Provider: Gayle Obrien RN) Rivaroxaban (XARELTO) tablet 20 mg 20 mg, Oral, DAILY WITH DINNER, First dose on Sat03/16/24 at 1900, Until Discontinued, Due to the rapid onset of action of rivaroxaban, no overlap is needed with other anticoagulants (e.g. enoxaparin, heparin). Administer doses of 15mg or greater with food. For patients who cannot swallow whole tablets, the tablets may be crushed and mixed with applesauce immediately prior to use. If administered via feeding tube, crush tablets and mix with 50 mL water. Tube must empty into the stomach for this route., Indications: Atrial Fibrillation, On hold since Sat03/17/2024 at 1401 until manually unheld 899 (Automatically Held - Provider: BIANCA Ulloa) 899 (Automatically Held - Provider: BIANCA Ulloa) 899 (Automatically Held - Provider: BIANCA Ulloa)2000 (Unheld by provider - Provider: System Discharge) Sulfamethoxazole-trimeth oprim (BACTRIM DS) 800-160 MG per tablet 1 tablet 1 tablet, Oral, EVERY 12 HOURS, 28 doses, First dose on Sat03/17/24 at 1000, Last dose on Sat03/30/24 at 2100 0951 (Given - Provider: Gayle Obrien RN)2146 (Given - Provider: Charlie Haile, RN) 0732 (Given - Provider: Gayle Obrien RN)2155 (Given - Provider: Charlie Haile RN) 0945 (Given - Provider: Rebekah Knox, RN)1227 ([facility] Hold - Provider: Automatic Transfer - Reason: Transfer to a Procedural area)1516 ([facility] Unhold - Provider: Automatic Transfer) Tamsulosin HCl (FLOMAX) capsule 0.4 mg 0.4 mg, Oral, DAILY, First dose on Sat03/17/24 at 0900, Until Discontinued, Slow release product. Do not chew or crush 0957 (Given - Provider: Gayle Obrien RN) 0732 (Given - Provider: Gayle Obrien RN) 0945 (Given - Provider: Rebekah Knox, [place])1227 ([facility] Hold - Provider: Automatic Transfer - Reason: Transfer to a Procedural area)1516 ([facility] Unhold - Provider: Automatic Transfer) Continuous Medication Order 03/18/2024 03/19/2024 03/20/2024 Heparin 25,000 units in dextrose 5% 250 mL premix infusion CONTINUOUS, Starting on Sat03/19/24 at 2315, Until Sat03/20/24 at 2001, INTERMEDIATE/CARDIAC SLIDING SCALE FOR PATIENTS EQUAL TO OR GREATER THAN 65KG: Initiate dose at 12 units/kg/hr. If PTT is less than 47, increase dose by 3 units/kg/hr. If PTT is 47-60, increase dose by 2 units/kg/hr. If PTT is 61-71, increase dose by 1 unit/kg/hr. If PTT is 72-95, no change. If PTT is 96-111, decrease dose by 1 unit/kg/hr. If PTT is 112-126, hold infusion for 60 minutes and decrease dose by 2 units/kg/hr. If PTT greater than 126, hold infusion and check PTT every 2 hours. Once PTT is in goal range or below, restart infusion at 3 units/kg/hr lower than the most recent dose. Note: Round PTT to nearest whole number (e.g. 70.5=71, 70.4=70)., Indications: Deep Vein Thrombosis 2345 ($$New Bag$$ - Provider: Charlie Haile RN) 0514 (Held by provider - Provider: Hnerry Calero MD - Reason: Other)0530 (Stopped - Provider: Charlie Haile RN)0733 (Unheld by provider - Provider: Henrry Calero MD)0820 (Restarted - Provider: Agnieszka Dumont RN)1227 ([facility] Hold - Provider: Automatic Transfer - Reason: Transfer to a Procedural area)1516 ([facility] Unhold - Provider: Automatic Transfer)1640 (Stopped - Provider: Agnieszka Dumont RN) Lactated ringers IV solution Intravenous, at 75 mL/hr, CONTINUOUS, Starting on Sat03/16/24 at 1815, Until Sat03/20/24 at 2000 0539 ($$New Bag$$ - Provider: Chely Morales RN)0541 (Paused - Provider: Gayle Obrien RN)0941 (Restarted - Provider: Gayle Obrien RN)0945 (Rate/Dose Verify - Provider: Gayle Obrien RN)1117 (Stopped - Provider: Gayle Obrien RN) 2341 ($$New Bag$$ - Provider: Charlie Haile RN) 0455 (Paused - Provider: Agnieszka Dumont RN)0500 (Restarted - Provider: Agnieszka Dumont RN)0621 (Paused - Provider: Agnieszka Dumont RN)0630 (Restarted - Provider: Agnieszka Dumont RN)1053 (Paused - Provider: Agnieszka Dumont RN)1057 (Paused - Provider: Agnieszka Dumont RN)1058 (Restarted - Provider: Agnieszka Dumont RN)1107 ($$New Bag$$ - Provider: Agnieszka Dumont RN)1209 (Paused - Provider: Agnieszka Dumont RN)1216 (Restarted - Provider: Agnieszka Dumont RN)1227 (MAR Hold - Provider: Automatic Transfer - Reason: Transfer to a Procedural area)1324 (Stopped - Provider: Agnieszka Dumont RN)1324 (Stopped - Provider: Agnieszka Dumont RN)1324 (Stopped - Provider: Agnieszka Dumont RN)1516 ([facility] Unhold - Provider: Automatic Transfer)1641 (Stopped - Provider: Agnieszka Dumont RN) PRN Medication Order 03/18/2024 03/19/2024 03/20/2024 Acetaminophen (TYLENOL) tablet 650 mg 650 mg, Oral, EVERY 4 HOURS NEEDED, Starting on Sat03/16/24 at 1810, Until Sat03/20/24 at 2000, temperature greater than 100 degrees, Maximum dose of acetaminophen is 4000 mg from all sources in 24 hours. 1227 ([facility] Hold - Provider: Automatic Transfer - Reason: Transfer to a Procedural area)1516 ([facility] Unhold - Provider: Automatic Transfer) alum/mag hydrox.-simethicone oral suspension 30 mL 30 mL, Oral, EVERY 6 HOURS NEEDED, Starting on Sat03/16/24 at 1810, Until Sat03/20/24 at 2000, Indigestion, Per 5 mL is equivalent to: (Alum-Mag Hydroxide 200-225 mg and Simethicone 20 mg) and (Alum-Mag Hydroxide 200-200 mg and Simethicone 20 mg) 1227 ([facility] Hold - Provider: Automatic Transfer - Reason: Transfer to a Procedural area)1516 ([facility] Unhold - Provider: Automatic Transfer) Cyclobenzaprine (FLEXERIL) tablet 5 mg 5 mg, Oral, 3 TIMES DAILY NEEDED, Starting on Renetta 03/19/24 at 1028, Until Sat03/20/24 at 2000, Muscle spasms, Moderate Pain 1054 (Given - Provider: Gayle Obrien, [place])2144 (Given - Provider: Charlie Haile RN) 1227 ([facility] Hold - Provider: Automatic Transfer - Reason: Transfer to a Procedural area)1516 ([facility] Unhold - Provider: Automatic Transfer) Dextrose 50% injection 7.5-25 g(Linked Group 3) 7.5-25 g, Intravenous, ADMINISTER DIRECTED, Starting on 03/16/24 at 1859, Until Sat03/20/24 at 2000, Blood glucose <80 mg/dL, For patients who are not alert, are NPO, or are on IV insulin infusion administer as directed per Hypoglycemia in Non- Adults Clinical Practice Guideline. For Blood Glucose: 60-79 mg/dL administer 7.5 gm (15ml); 45-59 mg/dL administer 12.5 gm (25ml); less than 45mg/dL administer 25gm (50ml). ++ If additional dextrose 50% needed, contact pharmacy or obtain from crash cart ++ 1227 ([facility] Hold - Provider: Automatic Transfer - Reason: Transfer to a Procedural area)1516 ([facility] Unhold - Provider: Automatic Transfer) fentaNYL (SUBLIMAZE) injection 0-300 mcg (CANCELED) 0-300 mcg, Intravenous, Administer over 2 Minutes, ADMINISTER DIRECTED, Starting on Sat03/20/24 at 1358, Until Sat03/20/24 at 1516, intraoperative pain management, Administer during procedure as directed by physician. Recorded MAR dose is cumulative amount given during procedure., Intra-op/Intra-Proc 1421 (Given - Provider: Yokasta Oneill, RN) glucose (GLUTOSE) 40 % oral gel 1-2 Tube(Linked Group 3) 1-2 Tube, Oral, ADMINISTER DIRECTED, Starting on Sat03/16/24 at 1859, Until Sat03/20/24 at 2000, Blood glucose <80 mg/dL, For patients who are alert, able to tolerate PO intake and with intact cognitive status administer as directed per Hypoglycemia in Non- Adults Clinical Practice Guideline. For Blood Glucose: 60-79 mg/dL administer 1 tube; 45-59 mg/dl administer 1.5 tubes; less than 45 mg/dL administer 2 tubes. Each tube of 37.5g delivers 15g of carbohydrate. 1227 ([facility] Hold - Provider: Automatic Transfer - Reason: Transfer to a Procedural area)1516 ([facility] Unhold - Provider: Automatic Transfer) Ibuprofen (MOTRIN) tablet 200 mg 200 mg, Oral, EVERY 6 HOURS NEEDED, Starting on Sat03/18/24 at 0839, Until Sat03/20/24 at 2000, Mild Pain, Moderate Pain, Give with food 1227 ([facility] Hold - Provider: Automatic Transfer - Reason: Transfer to a Procedural area)1516 ([facility] Unhold - Provider: Automatic Transfer) Lidocaine (PF) 2 % injection (COMPLETED) ONCE NEEDED, 1 dose, Starting on Sat03/20/24 at 1448, Until Sat03/20/24 at 1448, Intra-op/Intra-Proc 1448 (Given - Provider: Fausto Sheets MD) midazolam (VERSED) injection 0-10 mg (CANCELED) 0-10 mg, Intravenous, ADMINISTER DIRECTED, Starting on Sat03/20/24 at 1358, Until Sat03/20/24 at 1516, Procedural sedation, Administer during procedure as directed by physician. Recorded MAR dose is cumulative amount given during procedure., Intra-op/Intra-Proc 1422 (Given - Provider: Yokasta Oneill RN) Morphine (PF) injection 2 mg (COMPLETED) 2 mg, Intravenous, EVERY 4 HOURS NEEDED, 2 doses, Starting on Sat03/17/24 at 1157, Until Sat03/18/24 at 1519, Severe Pain, Moderate Pain 0007 (Given - Provider: Chely Morales RN)1519 (Given - Provider: Gayle Obrien RN) Ondansetron (ZOFRAN) tablet 4 mg(Linked Group 5) 4 mg, Oral, EVERY 6 HOURS NEEDED, Starting on Sat03/16/24 at 1810, Until Sat03/20/24 at 2000, Nausea / Vomiting, 1st line 1227 ([facility] Hold - Provider: Automatic Transfer - Reason: Transfer to a Procedural area)1516 ([facility] Unhold - Provider: Automatic Transfer) Ondansetron 4mg/2ml (ZOFRAN) injection 4 mg(Linked Group 5) 4 mg, Intravenous, EVERY 6 HOURS NEEDED, Starting on Sat03/16/24 at 1810, Until Sat03/20/24 at 2000, Nausea / Vomiting, 1st line 1227 (MAR Hold - Provider: Automatic Transfer - Reason: Transfer to a Procedural area)1516 ([facility] Unhold - Provider: Automatic Transfer) oxyCODONE (ROXICODONE) tablet 5 mg(Linked Group 6) 5 mg, Oral, EVERY 4 HOURS NEEDED, Starting on Sat03/16/24 at 1810, Until Sat03/20/24 at 2000, Moderate Pain, Severe Pain, Use as initial dose. Higher dose may be administered if lower dose was previously documented as ineffective and did not result in adverse effects (RR<10, negative change in RASS of 2 or more). 0542 (See Alternative - Provider: Chely Morales RN)1734 (See Alternative - Provider: Gayle Obrien RN)2146 (See Alternative - Provider: Charlie Haile RN) 0314 (See Alternative - Provider: Charlie Haile RN)1433 (See Alternative - Provider: Gayle Obrien RN)1920 (See Alternative - Provider: Charlie Haile RN) 0503 (See Alternative - Provider: Charlie Haile RN)1227 ([facility] Hold - Provider: Automatic Transfer - Reason: Transfer to a Procedural area)1516 ([facility] Unhold - Provider: Automatic Transfer)1622 (See Alternative - Provider: Agnieszka Dumont RN) oxyCODONE HCl (ROXICODONE) tablet 10 mg(Linked Group 6) 10 mg, Oral, EVERY 4 HOURS NEEDED, Starting on Sat03/16/24 at 1810, Until Sat03/20/24 at 2000, Moderate Pain, Severe Pain, Higher dose may be administered if lower dose was previously documented as ineffective and did not result in adverse effects (RR<10, negative change in RASS of 2 or more). Decrease back to lower dose if patient has adverse effects or no PRN use in previous 12 hours. Hold for sedation. 0542 (Given - Provider: Chely Morales RN)1734 (Given - Provider: Gayle Obrien RN)2146 (Given - Provider: Charlie Haile RN) 0314 (Given - Provider: Charlie Haile RN)1433 (Given - Provider: Gayle Obrien RN)1920 (Given - Provider: Charlie Haile RN) 0503 (Given - Provider: Charlie Haile RN)1227 (MAR Hold - Provider: Automatic Transfer - Reason: Transfer to a Procedural area)1516 ([facility] Unhold - Provider: Automatic Transfer)1622 (Given - Provider: Agnieszka Dumont RN) Sodium chloride (PF) 0.9 % injection 1-100 mL (COMPLETED) 1-100 mL, Intravenous, ONCE NEEDED, 1 dose, Starting on Sat03/18/24 at 1701, Until Sat03/18/24 at 1701, Flush, CT Procedure 170 (Given - Provider: Dulce Haskins) Sodium chloride 0.9% IV solution 250 mL Intravenous, at 20 mL/hr, NEEDED, Starting on Sat03/16/24 at 1810, Until Sat03/20/24 at 2000, Carrier Fluid - See Admin. Inst, 250mL 0.9NS to be used as carrier fluid for intermittent small volume or piggyback medication administration as needed. Infusion rate of the carrier fluid should be set at 20 mL/hr unless the rate as the intermittent medication is less than 20 mL/hr. For intermittent medications with a rate less than 20 mL/hr set the carrier fluid at that rate of the intermittent or piggy back medication. 0745 ($$New Bag$$ - Provider: Gayle Obrien RN)0745 (Paused - Provider: Gayle Obrien RN)0845 (Restarted - Provider: Gayle Obrien RN)0846 (Stopped - Provider: Gayle Obrien RN) 1227 ([facility] Hold - Provider: Automatic Transfer - Reason: Transfer to a Procedural area)1516 ([facility] Unhold - Provider: Automatic Transfer) Linked Groups Order Group 1: famotidine (PF) (PEPCID) injection 20 mg (COMPLETED) 20 mg, Intravenous, EVERY 12 HOURS, 4 doses, First dose on Sat03/16/24 at 2100, Last dose on Sat03/18/24 at 0900, Administer undiluted by slow IV push at a rate not to exceed 10mg/min. Or faMOTIdine (PEPCID) tablet 20 mg (COMPLETED)Jump to med 20 mg, Oral, EVERY 12 HOURS, 4 doses, First dose on Sat03/16/24 at 2100, Last dose on Sat03/18/24 at 0900 Group 2: Heparin injection 5,000 Units (COMPLETED)Jump to med 5,000 Units, Subcutaneous, EVERY 8 HOURS (0800/1600/2200), 1 dose, First dose on Sat03/19/24 at 2200 And PLATELET COUNT (CANCELED) Routine, EVERY 3 DAYS AM LAB, First occurrence on Sat03/19/24 at 2057, Until Specified, New collection Group 3: Insulin lispro (HUMALOG) injectionJump to med Subcutaneous, 3 TIMES DAILY BEFORE MEALS, First dose on Sat03/16/24 at 1900, Until Discontinued, Correction Factor: 151-175 = 1 unit; 176-200 = 2 units; 201-225 = 3 units; 226-250 = 4 units; 251-275 = 5 units; 276-300 = 6 units; 301-325 = 7 units; 326-350 = 8 units; Kwikpen: Prime pen before each injection; refer to Pen Priming and Care Handout for further details. Warning! Confirm patient. Insulin pen is for labeled individual patient use ONLY. And BLOOD GLUCOSE (POC DEVICE) (CANCELED) Routine, 3 TIMES DAILY BEFORE MEALS, First occurrence on Sat03/17/24 at 0745, If any Blood Glucose (POC) is greater than 300mg/dl, then repeat Blood Glucose (POC) in 2 hours. If the initial blood glucose was greater than 300mg/dl and if second blood glucose is greater than 200md/dl, then notify Order Make Up Clerk. And BLOOD GLUCOSE (POC DEVICE) (CANCELED) Routine, DIRECTED, Starting on Sat03/16/24 at 1859, Until Specified, For all Blood Glucose LESS THAN 80 mg/dL, treat per Hypoglycemia in Non- Adults Clinical Practice Guideline (CPG) and recheck glucose 15 min after treatment. Repeat per CPG until glucose GREATER THAN 80 mg/dL. Once glucose IS GREATER THAN 80 mg/dL, recheck Blood Glucose every 1 hour x2, then resume as previously ordered. For Blood Glucose LESS THAN 80 mg/dL on admission OR LESS than 45 mg/dL at any time, obtain POC Blood Glucose every 4 hours for 6 occurrences AFTER treating per CPG. Obtain blood glucose for symptoms of hypoglycemia: sweating, shaking, fatigue, rapid pulse, slow thinking & dizziness. Notify physician w/results. Obtain blood glucose for symptoms of hyperglycemia: excessive thirst, blurred vision, excessive urination & tiredness. Notify physician w/results. If patient NPO, obtain POC Blood Glucose prior to administration of any insulin products. And COMMUNICATION ORDER FOR NURSING CARE: For Blood Glucose LESS THAN 80 mg/dl (CANCELED) Routine, CONTINUOUS, Starting on Sat03/16/24 at 1900, Until Specified, For Blood Glucose LESS THAN 80 mg/dl follow Hypoglycemia in Non- Adults Clinical Practice Guideline (CPG) And Dextrose 50% injection 7.5-25 gJump to med 7.5-25 g, Intravenous, ADMINISTER DIRECTED, Starting on Sat03/16/24 at 1859, Until Sat03/20/24 at 2001, Blood glucose <80 mg/dL, For patients who are not alert, are NPO, or are on IV insulin infusion administer as directed per Hypoglycemia in Non- Adults Clinical Practice Guideline. For Blood Glucose: 60-79 mg/dL administer 7.5 gm (15ml); 45-59 mg/dL administer 12.5 gm (25ml); less than 45mg/dL administer 25gm (50ml). ++ If additional dextrose 50% needed, contact pharmacy or obtain from crash cart ++ And glucose (GLUTOSE) 40 % oral gel 1-2 TubeJump to med 1-2 Tube, Oral, ADMINISTER DIRECTED, Starting on Sat03/16/24 at 1859, Until Sat03/20/24 at 2000, Blood glucose <80 mg/dL, For patients who are alert, able to tolerate PO intake and with intact cognitive status administer as directed per Hypoglycemia in Non- Adults Clinical Practice Guideline. For Blood Glucose: 60-79 mg/dL administer 1 tube; 45-59 mg/dl administer 1.5 tubes; less than 45 mg/dL administer 2 tubes. Each tube of 37.5g delivers 15g of carbohydrate. And NOTIFY PHYSICIAN, Blood Glucose LESS THAN 80 mg/dl (CANCELED) Routine, CONTINUOUS, Starting on Sat03/16/24 at 1900, Until Specified, Who to Notify: Order Make Up Clerk, For all Blood Glucose LESS THAN 80 mg/dl, notify Order Make Up Clerk after treatment per Hypoglycemia in Non- Adults Clinical Practice Guideline Group 4: Magnesium sulfate 1 g in dextrose 5% 100 mL premix IVPB (COMPLETED)Jump to med 1 g, Intravenous, at 100 mL/hr, Administer over 60 Minutes, ONCE, 1 dose, On Sat03/20/24 at 0815 Followed by Magnesium sulfate 1 g in dextrose 5% 100 mL premix IVPB (COMPLETED)Jump to med 1 g, Intravenous, at 100 mL/hr, Administer over 60 Minutes, ONCE, 1 dose, On Sat03/20/24 at 0915 Followed by Magnesium sulfate 1 g in dextrose 5% 100 mL premix IVPB (COMPLETED)Jump to med 1 g, Intravenous, at 100 mL/hr, Administer over 60 Minutes, ONCE, 1 dose, On Sat03/20/24 at 1015 Group 5: Ondansetron 4mg/2ml (ZOFRAN) injection 4 mgJump to med 4 mg, Intravenous, EVERY 6 HOURS NEEDED, Starting on Sat03/16/24 at 1810, Until Sat03/20/24 at 2000, Nausea / Vomiting, 1st line Or Ondansetron (ZOFRAN) tablet 4 mgJump to med 4 mg, Oral, EVERY 6 HOURS NEEDED, Starting on Sat03/16/24 at 1810, Until Sat03/20/24 at 2000, Nausea / Vomiting, 1st line Group 6: oxyCODONE (ROXICODONE) tablet 5 mgJump to med 5 mg, Oral, EVERY 4 HOURS NEEDED, Starting on Sat03/16/24 at 1810, Until Sat03/20/24 at 2000, Moderate Pain, Severe Pain, Use as initial dose. Higher dose may be administered if lower dose was previously documented as ineffective and did not result in adverse effects (RR<10, negative change in RASS of 2 or more). Or oxyCODONE HCl (ROXICODONE) tablet 10 mgJump to med 10 mg, Oral, EVERY 4 HOURS NEEDED, Starting on Sat03/16/24 at 1810, Until Sat03/20/24 at 2000, Moderate Pain, Severe Pain, Higher dose may be administered if lower dose was previously documented as ineffective and did not result in adverse effects (RR<10, negative change in RASS of 2 or more). Decrease back to lower dose if patient has adverse effects or no PRN use in previous 12 hours. Hold for sedation. Scheduled Medication Order 04/07/2024 04/08/2024 04/09/2024 iohexol (OMNIPAQUE) 350 MG/ML injection 1-171 mL (COMPLETED) 1-171 mL, Intravenous, ONCE, 1 dose, On Renetta 04/09/24 at 1615, Extravasation Risk, CT Procedure 1607 (Given - Radiol ogy - Provider: Dulce Haskins) Ketorolac (TORADOL) injection 15 mg (COMPLETED) 15 mg, Intravenous, ONCE, 1 dose, On Renetta 04/09/24 at 1645 1621 (Given - Provid er: Anastasia Peterson RN) Morphine (PF) injection 2 mg (COMPLETED) 2 mg, Intravenous, ONCE, 1 dose, On Renetta 04/09/24 at 1200 1141 (Given - Provid er: Claudine Segal RN) Piperacillin-tazobactam (ZOSYN) 4.5 g in dextrose premix IVPB (COMPLETED) 4.5 g, Intravenous, Administer over 0.5 Hours, ONCE, 1 dose, On Renetta 04/09/24 at 1445, Infuse STAT doses over 30 minutes. Infuse other doses over 4 hours. Contains a penicillin., Indications: Empiric therapy 1448 ($$New Bag$$ - Provider: Claudine Segal RN)1518 (Stopped - Provider: Anastasia Peterson, [place]) Piperacillin-tazobactam (ZOSYN) 4.5 g in dextrose premix IVPB 4.5 g, Intravenous, Administer over 4 Hours, EVERY 8 HOURS NON-STANDARD, First dose on Renetta 04/09/24 at 2300, Until Discontinued, Infuse STAT doses over 30 minutes. Infuse other doses over 4 hours. Contains a penicillin., Indications: Empiric therapy Sodium chloride 0.9% IV solution 500 mL (COMPLETED) 500 mL, Intravenous, ONCE, 1 dose, On Renetta 04/09/24 at 1200 1143 ($$New Bag$$ - Provider: Claudine Segal RN)1436 (Stopped - Provider: Claudine Segal RN) Vancomycin HCl in NaCl (Vancocin) 2,000 mg 295 ml premade IVPB (COMPLETED) 2,000 mg (rounded from 1,918 mg = 20 mg/kg 95.9 kg Adjusted weight), Intravenous, Administer over 2 Hours, ONCE, 1 dose, On Renetta 04/09/24 at 1515 1708 ($$New Bag$$ - Provider: Anastasia Peterson RN)1955 (Stopped - Provider: Hung Godfrey RN) Continuous Medication Order 04/07/2024 04/08/2024 04/09/2024 Heparin 25,000 units in dextrose 5% 250 mL premix infusion CONTINUOUS, Starting on Renetta 04/09/24 at 1930, Until Renetta 04/09/24 at 2020, INTERMEDIATE/CARDIAC SLIDING SCALE FOR PATIENTS EQUAL TO OR GREATER THAN 65KG: Initiate dose at 12 units/kg/hr. If PTT is less than 47, increase dose by 3 units/kg/hr. If PTT is 47-60, increase dose by 2 units/kg/hr. If PTT is 61-71, increase dose by 1 unit/kg/hr. If PTT is 72-95, no change. If PTT is 96-111, decrease dose by 1 unit/kg/hr. If PTT is 112-126, hold infusion for 60 minutes and decrease dose by 2 units/kg/hr. If PTT greater than 126, hold infusion and check PTT every 2 hours. Once PTT is in goal range or below, restart infusion at 3 units/kg/hr lower than the most recent dose. Note: Round PTT to nearest whole number (e.g. 70.5=71, 70.4=70)., Indications: Pulmonary Embolism 1954 ($$New Bag$$ - Provider: Hung Godfrey RN) PRN Medication Order 04/07/2024 04/08/2024 04/09/2024 Morphine (PF) injection 2 mg 2 mg, Intravenous, EVERY 4 HOURS NEEDED, Starting on Renetta 04/09/24 at 1607, Until Renetta 04/09/24 at 2020, Moderate Pain, Severe Pain 1621 (Given - Provid er: Anastasia Peterson RN) Sodium chloride (PF) 0.9 % injection 1-100 mL (COMPLETED) 1-100 mL, Intravenous, ONCE NEEDED, 1 dose, Starting on Renetta 04/09/24 at 1607, Until Renetta 04/09/24 at 1607, Flush, CT Procedure 1607 (Given - Provid er: Dulce Haskins) Scheduled Medication Order 04/09/2024 04/10/2024 04/11/2024 faMOTIdine (PEPCID) tablet 20 mg(Linked Group 1) 20 mg, Oral, EVERY 12 HOURS, 4 doses, First dose on Renetta 04/09/24 at 2100, Last dose on 04/11/24 at 0900 2209 (Not Given - Provider: Blaise Quinn RN - Reason: Patient/family refused) 1057 (Not Given - Provider: Sandra Gordon RN - Reason: Patient/family refused)2040 (Not Given - Provider: Karlene Regalado RN - Reason: Patient/family refused) 903 (Not Given - Provider: Samreen Mesa RN - Reason: Patient/family refused) famotidine (PF) (PEPCID) injection 20 mg(Linked Group 1) 20 mg, Intravenous, EVERY 12 HOURS, 4 doses, First dose on Renetta 04/09/24 at 2100, Last dose on 9/28/24 at 0900, Administer undiluted by slow IV push at a rate not to exceed 10mg/min. 2209 (See Alternative - Provider: Blaise Quinn RN) 1057 (See Alternative - Provider: Sandra Gordon RN)2041 (See Alternative - Provider: Karlene Regalado, RN) 0904 (See Alternative - Provider: Samreen Mesa, RN) magnesium oxide (MAG-OX) tablet 400 mg (COMPLETED) 400 mg, Oral, ONCE, 1 dose, On Sat04/10/24 at 0630 0628 (Given - Provider: Stefanie Walters RN) magnesium oxide (MAG-OX) tablet 400 mg (COMPLETED) 400 mg, Oral, ONCE, 1 dose, On Sat04/11/24 at 0615 0551 (Given - Provider: Lashawn Jones, [place]) Piperacillin-tazobactam (ZOSYN) 4.5 g in dextrose premix IVPB 4.5 g, Intravenous, Administer over 4 Hours, EVERY 8 HOURS NON-STANDARD, First dose on Renetta 04/09/24 at 2200, Until Discontinued, Infuse STAT doses over 30 minutes. Infuse other doses over 4 hours. Contains a penicillin., Indications: Empiric therapy 2227 ($$New Bag$$ - Provider: Blaise Quinn RN) 0036 (Paused - Provider: Stefanie Walters RN)0038 (Restarted - Provider: Stefanie Walters RN)0142 (Paused - Provider: Stefanie Walters RN)0145 (Restarted - Provider: Stefanie Walters RN)0232 (Stopped - Provider: Stefanie Walters RN)0510 ($$New Bag$$ - Provider: Stefanie Walters RN)0910 (Stopped - Provider: Alma Brian RN)1354 ($$New Bag$$ - Provider: Alma Biran RN)1441 (Stopped - Provider: Karlene Regalado, [place])1441 (Stopped - Provider: Karlene Regalado, RN)2259 ($$New Bag$$ - Provider: Karlene Regalado, RN) 0259 (Stopped - Provider: Samreen Mesa, RN)0541 ($$New Bag$$ - Provider: Lashawn Jones RN)0941 (Stopped - Provider: Samreen Mesa RN)1400 (Canceled Entry - Provider: System Discharge - Comment: Automatically canceled at discontinue of medication order) Polyethylene glycol (MIRALAX) packet 17 g 17 g, Oral, DAILY, First dose on Sat04/10/24 at 0900, Until Discontinued 1057 (Not Given - Provider: Sandra Gordon RN - Reason: Patient/family refused - Comment: pt declined states he's having normal soft BM's) 0904 (Not Given - Provider: Samreen Mesa RN - Reason: Patient/family refused) Rivaroxaban (XARELTO) tablet 20 mg 20 mg, Oral, DAILY WITH DINNER, First dose on Sat04/11/24 at 1700, Until Discontinued, Due to the rapid onset of action of rivaroxaban, no overlap is needed with other anticoagulants (e.g. enoxaparin, heparin). Administer doses of 15mg or greater with food. For patients who cannot swallow whole tablets, the tablets may be crushed and mixed with applesauce immediately prior to use. If administered via feeding tube, crush tablets and mix with 50 mL water. Tube must empty into the stomach for this route., Indications: home med 1700 (Canceled Entry - Provider: System Discharge - Comment: Automatically canceled at discontinue of medication order) Vancomycin HCl in NaCl (Vancocin) 1,500 mg 290 ml premade IVPB (CANCELED) 1,500 mg (rounded from 1,438.5 mg = 15 mg/kg 95.9 kg Adjusted weight), Intravenous, Administer over 2 Hours, EVERY 12 HOURS NON-STANDARD, First dose on Sat04/10/24 at 0500, Until Discontinued 0512 ($$New Bag$$ - Provider: Stefanie Walters RN)0712 (Stopped - Provider: Alma Brian, [place])1825 ($$New Bag$$ - Provider: Alma Brian RN)2025 (Stopped - Provider: Karlene Regalado RN) 0650 ($$New Bag$$ - Provider: Lashawn Jones RN)0808 (Paused - Provider: Samreen Mesa RN)0813 (Restarted - Provider: Samreen Mesa RN)0832 (Paused - Provider: Samreen Mesa RN)0838 (Restarted - Provider: Samreen Mesa RN)09 (Stopped - Provider: Samreen Mesa RN) Vancomycin HCL in NaCl 1,750 mg 292.5 ml premade IVPB 1,750 mg, Intravenous, Administer over 2 Hours, EVERY 12 HOURS NON-STANDARD, First dose (after last modification) on 04/11/24 at 1900, Until Discontinued Continuous Medication Order 04/09/2024 04/10/2024 04/11/2024 Heparin 25,000 units in dextrose 5% 250 mL premix infusion (CANCELED) CONTINUOUS, Starting on Renetta 04/09/24 at 2130, Until 04/11/24 at 0752, INTERMEDIATE/CARDIAC SLIDING SCALE FOR PATIENTS EQUAL TO OR GREATER THAN 65KG: Initiate dose at 12 units/kg/hr. If PTT is less than 47, increase dose by 3 units/kg/hr. If PTT is 47-60, increase dose by 2 units/kg/hr. If PTT is 61-71, increase dose by 1 unit/kg/hr. If PTT is 72-95, no change. If PTT is 96-111, decrease dose by 1 unit/kg/hr. If PTT is 112-126, hold infusion for 60 minutes and decrease dose by 2 units/kg/hr. If PTT greater than 126, hold infusion and check PTT every 2 hours. Once PTT is in goal range or below, restart infusion at 3 units/kg/hr lower than the most recent dose. Note: Round PTT to nearest whole number (e.g. 70.5=71, 70.4=70)., Indications: Pulmonary Embolism 2127 (Handoff - Provider: Blaise Quinn RN) 034 (Rate/Dose Verify - Provider: Stefanie Walters RN)0417 (Rate/Dose Verify - Provider: Stefanie Walters RN)0419 ([employer] - Provider: Stefanie Walters RN)0420 (Rate/Dose Verify - Provider: Stefanie Walters RN)0421 (Rate/Dose Verify - Provider: Stefanie Walters RN)0422 (Rate/Dose Verify - Provider: Stefanie Walters RN)0442 (Paused - Provider: Alma Brian RN)0445 (Restarted - Provider: Alma Brian RN)0500 (Paused - Provider: Alma Brian RN)0505 (Restarted - Provider: Alma Brian RN)0752 (Paused - Provider: Alma Brian RN)0756 (Restarted - Provider: Alma Brian RN)1216 (Rate/Dose Change - Provider: Alma Brian RN)1823 (Restarted - Provider: Alma Brian RN)1825 (Rate/Dose Verify - Provider: Karlene Regalado RN)2253 (Rate/Dose Verify - Provider: Karlene Regalado RN)2255 (Rate/Dose Verify - Provider: Karlene Regalado RN) 0308 (Rate/Dose Change - Provider: Samreen Mesa RN)0309 (Rate/Dose Change - Provider: Lashawn Jones RN)0651 (Paused - Provider: Samreen Mesa RN)0657 ($$New Bag$$ - Provider: Lashawn Jones RN)0659 (Rate/Dose Change - Provider: Samreen Mesa RN)0838 (Stopped - Provider: Samreen Mesa RN) Lactated ringers IV solution Intravenous, at 100 mL/hr, CONTINUOUS, Starting on Sat04/10/24 at 0000, Until 04/11/24 at 1733 0102 ($$New Bag$$ - Provider: Stefanie Walters RN)0349 (Rate/Dose Verify - Provider: Stefanie Walters RN)0417 (Rate/Dose Verify - Provider: Stefanie Walters RN)0421 (Rate/Dose Verify - Provider: Stefanie Walters RN)0422 (Rate/Dose Verify - Provider: Stefanie Walters RN)1159 (Rate/Dose Verify - Provider: Alma Brian RN)1827 (Rate/Dose Verify - Provider: Alma Brian RN)2107 ($$New Bag$$ - Provider: Karlene Regalado RN)2108 (Rate/Dose Verify - Provider: Karlene Regalado RN)2253 (Rate/Dose Verify - Provider: Karlene Regalado RN)2255 (Rate/Dose Verify - Provider: Karlene Regalado RN) 0001 (Paused - Provider: Samreen Mesa, RN)0004 (Restarted - Provider: Samreen Mesa RN)0533 ($$New Bag$$ - Provider: Lashawn Jones RN)0539 (Rate/Dose Verify - Provider: Samreen Mesa RN)0546 (Paused - Provider: Samreen Mesa, RN)0548 (Restarted - Provider: Samreen Mesa, RN)0650 (Stopped - Provider: Samreen Mesa RN) PRN Medication Order 04/09/2024 04/10/2024 04/11/2024 Acetaminophen (TYLENOL) tablet 650 mg 650 mg, Oral, EVERY 4 HOURS NEEDED, Starting on Renetta 04/09/24 at 2036, Until 04/11/24 at 1733, temperature greater than 100 degrees, Maximum dose of acetaminophen is 4000 mg from all sources in 24 hours. alum/mag hydrox.-simethicone oral suspension 30 mL 30 mL, Oral, EVERY 6 HOURS NEEDED, Starting on Renetta 04/09/24 at 2036, Until 04/11/24 at 1733, Indigestion, Per 5 mL is equivalent to: (Alum-Mag Hydroxide 200-225 mg and Simethicone 20 mg) and (Alum-Mag Hydroxide 200-200 mg and Simethicone 20 mg) fentaNYL (SUBLIMAZE) injection 0-300 mcg () 0-300 mcg, Intravenous, Administer over 2 Minutes, ADMINISTER DIRECTED, Starting on Sat04/10/24 at 1532, Until Sat04/10/24 at 1931, intraoperative pain management, Administer during procedure as directed by physician. Recorded MAR dose is cumulative amount given during procedure., Intra-op/Intra-Proc 1551 (Given - Provider: Mk Johnson, [place])1557 (Given - Provider: Mk Johnson RN) midazolam (VERSED) injection 0-10 mg () 0-10 mg, Intravenous, ADMINISTER DIRECTED, Starting on Sat04/10/24 at 1532, Until Sat04/10/24 at 1931, Procedural sedation, Administer during procedure as directed by physician. Recorded MAR dose is cumulative amount given during procedure., Intra-op/Intra-Proc 1551 (Given - Provider: Mk Johnson, [place])1557 (Given - Provider: Mk Johnson RN) Ondansetron (ZOFRAN) tablet 4 mg(Linked Group 2) 4 mg, Oral, EVERY 6 HOURS NEEDED, Starting on Sat04/09/24 at 2037, Until 04/11/24 at 1733, Nausea / Vomiting, 1st line Ondansetron 4mg/2ml (ZOFRAN) injection 4 mg(Linked Group 2) 4 mg, Intravenous, EVERY 6 HOURS NEEDED, Starting on Sat04/09/24 at 2037, Until 04/11/24 at 1733, Nausea / Vomiting, 1st line oxyCODONE (ROXICODONE) tablet 5 mg 5 mg, Oral, EVERY 4 HOURS NEEDED, 4 doses, Starting on Sat04/10/24 at 2320, Until 04/11/24 at 1733, Severe Pain 2259 (Given - Provider: Karlene Regalado RN) 0532 (Given - Provider: Lashawn Jones RN) Sodium chloride 0.9% IV solution 250 mL Intravenous, at 20 mL/hr, NEEDED, Starting on Renetta 04/09/24 at 2036, Until 04/11/24 at 1733, Carrier Fluid - See Admin. Inst, 250mL 0.9NS to be used as carrier fluid for intermittent small volume or piggyback medication administration as needed. Infusion rate of the carrier fluid should be set at 20 mL/hr unless the rate as the intermittent medication is less than 20 mL/hr. For intermittent medications with a rate less than 20 mL/hr set the carrier fluid at that rate of the intermittent or piggy back medication. Linked Groups Order Group 1: famotidine (PF) (PEPCID) injection 20 mgJump to med 20 mg, Intravenous, EVERY 12 HOURS, 4 doses, First dose on Sat04/09/24 at 2100, Last dose on Sat04/11/24 at 0900, Administer undiluted by slow IV push at a rate not to exceed 10mg/min. Or faMOTIdine (PEPCID) tablet 20 mgJump to med 20 mg, Oral, EVERY 12 HOURS, 4 doses, First dose on Sat04/09/24 at 2100, Last dose on Sat04/11/24 at 0900 Group 2: Ondansetron 4mg/2ml (ZOFRAN) injection 4 mgJump to med 4 mg, Intravenous, EVERY 6 HOURS NEEDED, Starting on Renetta 04/09/24 at 2037, Until 04/11/24 at 1733, Nausea / Vomiting, 1st line Or Ondansetron (ZOFRAN) tablet 4 mgJump to med 4 mg, Oral, EVERY 6 HOURS NEEDED, Starting on Renetta 04/09/24 at 2037, Until 04/11/24 at 1733, Nausea / Vomiting, 1st line Scheduled Medication Order 04/12/2024 04/13/2024 04/14/2024 Acetaminophen (TYLENOL) tablet 325 mg 325 mg, Oral, EVERY 24 HOURS, First dose on 04/12/24 at 2300, Until Discontinued, Give just prior to each amphotericin b dose 0003 (Not Given - Provider: Shakira Sidhu RN - Reason: Other - Comment: given prn dose)2342 (Given - Provider: Kaitlyn Mcgovern RN) amLODIPine (NORVASC) tablet 5 mg 5 mg, Oral, DAILY, First dose (after last modification) on Sat04/15/24 at 0900, Until Discontinued amLODIPine (NORVASC) tablet 5-10 mg (CANCELED) 5-10 mg, Oral, DAILY, First dose on Sat04/13/24 at 0900, Until Discontinued 0846 (Given - Provider: Carlos Enrique Martinez RN) 0758 (Given - Provider: Lissa Daniels RN) amphotericin B LIPOSOME (AMBISOME) 500 mg in Dextrose 5%, with overfill 400 mL (total volume) IVPB (COMPLETED) 500 mg (rounded from 480 mg = 5 mg/kg 96 kg Adjusted weight), Intravenous, Administer over 2 Hours, ONCE, 1 dose, On 04/12/24 at 2330, Amphotericin B liposomal is NOT compatible with normal saline. Flush line with D5W before and after administration. 2349 (Not Given - Provider: Shakira Sidhu RN - Reason: Other - Comment: held for bolus) 0033 (Not Given - Provider: Shakira Sidhu RN - Reason: Other)0042 ($$New Bag$$ - Provider: Shkaira Sidhu RN)0250 (Stopped - Provider: Shakira Sidhu RN) amphotericin B LIPOSOME (AMBISOME) 500 mg in Dextrose 5%, with overfill 400 mL (total volume) IVPB (CANCELED) 500 mg (rounded from 480 mg = 5 mg/kg 96 kg Adjusted weight), Intravenous, Administer over 2 Hours, EVERY 24 HOURS, First dose on Sat04/13/24 at 2330, Until Discontinued, Amphotericin B liposomal is NOT compatible with normal saline. Flush line with D5W before and after administration. 235 ($$New Bag$$ - Provider: Kaitlyn Mcgovern RN) 0159 (Stopped - Provider: Kaitlyn Mcgovern RN)0237 (Stopped - Provider: Kaitlyn Mcgovern RN) diphenhydrAMINE (BENADRYL) tablet 25 mg 25 mg, Oral, EVERY 24 HOURS, First dose on Sat04/12/24 at 2300, Until Discontinued, Give 30 minutes prior to each amphotericin b dose 2358 (Given - Provider: Shakira Sidhu RN) 2306 (Given - Provider: Kaitlyn Mcgovern RN) Insulin lispro (HUMALOG) injection(Linked Group 1) Subcutaneous, 4 TIMES DAILY WITH MEALS & AT BEDTIME, First dose on Sat04/12/24 at 2230, Until Discontinued, Insulin to carb ratio: Standard: 1 unit insulin = 10 grams carbs every meal and at bedtime Correction Factor: 151-200 = 1 unit; 201-250 = 2 units; 251-300 = 3 units; 301-350 = 4 units; 351-400 = 5 units; Kwikpen: Prime pen before each injection; refer to Pen Priming and Care Handout for further details. Warning! Confirm patient. Insulin pen is for labeled individual patient use ONLY. 0027 (Given - Provider: Shakira Sidhu RN)1016 (Given - Provider: Carlos Enrique Martinez RN)1355 (Given - Provider: Carlos Enrique Martinez, RN)1816 (Given - Provider: Carlos Enrique Martinez, [place])2149 (Given - Provider: Kaitlyn Mcgovern RN) 0913 (Given - Provider: Lissa Daniels, [place])1317 (Given - Provider: Lissa Daniels, RN) Lisinopril (PRINIVIL) tablet 30 mg 30 mg, Oral, DAILY, First dose (after last modification) on Sat04/13/24 at 0030, Until Discontinued 0036 (Given - Provider: Shakira Sidhu RN) 0758 (Not Given - Provider: Lissa Daniels, RN - Reason: Patient/family refused) Magnesium sulfate 4 g in sterile water 50 ml premix IVPB (COMPLETED) 4 g, Intravenous, at 12.5 mL/hr, Administer over 4 Hours, ONCE, 1 dose, On Sat04/13/24 at 0745 0851 ($$New Bag$$ - Provider: Carlos Enrique Martinez RN)1251 (Stopped - Provider: Carlos Enrique Martinez RN) Metoprolol succinate (TOPROL-XL) tablet XL 50 mg 50 mg, Oral, DAILY, First dose on Sat04/13/24 at 0900, Until Discontinued, Slow release product. Do not crush. Extended release can be cut in half. 0846 (Given - Provider: Carlos Enrique Martinez RN) 0758 (Given - Provider: Lissa Daniels, RN) Piperacillin-tazobactam (ZOSYN) 4.5 g in dextrose premix IVPB (COMPLETED) 4.5 g, Intravenous, Administer over 0.5 Hours, ONCE, 1 dose, On Sat04/12/24 at 2230, Infuse STAT doses over 30 minutes. Infuse other doses over 4 hours. Contains a penicillin., Indications: Empiric therapy 0215 ($$New Bag$$ - Provider: Shakira Sidhu RN)0245 (Stopped - Provider: Shakira Sidhu RN) Piperacillin-tazobactam (ZOSYN) 4.5 g in dextrose premix IVPB 4.5 g, Intravenous, Administer over 4 Hours, EVERY 8 HOURS NON-STANDARD, First dose on Sat04/13/24 at 0800, Until Discontinued, Infuse STAT doses over 30 minutes. Infuse other doses over 4 hours. Contains a penicillin., Indications: Empiric therapy 1015 ($$New Bag$$ - Provider: Carlos Enrique Martinez RN)1415 (Stopped - Provider: Carlos Enrique Martinez RN)1704 ($$New Bag$$ - Provider: Kaitlyn Samuels RN)1817 (Rate/Dose Verify - Provider: Carlos Enrique Martinez RN)2106 (Stopped - Provider: Kaitlyn Mcgovern RN) 0005 ($$New Bag$$ - Provider: Kaitlyn Mcgovern RN)0405 (Stopped - Provider: Kaitlyn Mcgovern RN)0810 ($$New Bag$$ - Provider: Lissa Daniels RN)0955 (Rate/Dose Verify - Provider: Lissa Daniels RN)1015 (Rate/Dose Verify - Provider: Lissa Daniels RN)1600 (Canceled Entry - Provider: System Discharge - Comment: Automatically canceled at discontinue of medication order) Rivaroxaban (XARELTO) tablet 20 mg 20 mg, Oral, DAILY WITH DINNER, First dose on Sat04/13/24 at 1700, Until Discontinued, Due to the rapid onset of action of rivaroxaban, no overlap is needed with other anticoagulants (e.g. enoxaparin, heparin). Administer doses of 15mg or greater with food. For patients who cannot swallow whole tablets, the tablets may be crushed and mixed with applesauce immediately prior to use. If administered via feeding tube, crush tablets and mix with 50 mL water. Tube must empty into the stomach for this route., Indications: Venous Thromboembolism 1808 (Given - Provider: Carlos Enrique Martinez RN) Rosuvastatin (CRESTOR) tablet 10 mg 10 mg, Oral, DAILY, First dose on Sat04/13/24 at 0900, Until Discontinued 0846 (Given - Provider: Carlos Enrique Martinez RN) 0758 (Given - Provider: Lissa Daniels RN) Sodium chloride 0.9% IV solution 500 mL 500 mL, Intravenous, EVERY 24 HOURS, First dose on Sat04/12/24 at 2300, Until Discontinued, Give 500 mL bolus prior to amphotericin B dose. Amphotericin B is incompatible with NS; use PRN D5W order for flushing line after NS bolus but immediately prior to drug administration. 2357 ($$New Bag$$ - Provider: Shakira Sidhu RN)2357 (Rate/Dose Change - Provider: Shakira Sidhu RN) 0020 (Paused - Provider: Shakira Sidhu RN)0024 (Restarted - Provider: Shakira Sidhu RN)0032 (Paused - Provider: Shakira Sidhu RN)0213 (Rate/Dose Change - Provider: Shakira Sidhu RN)0215 (Stopped - Provider: Shakira Sidhu RN)2309 ($$New Bag$$ - Provider: Kaitlyn Mcgovern RN)2339 (Stopped - Provider: Kaitlyn Mcgovern RN) 0044 (Stopped - Provider: Kaitlyn Mcgovern RN) Sodium chloride 0.9% IV solution 500 mL 500 mL, Intravenous, EVERY 24 HOURS, First dose on Sat04/13/24 at 0230, Until Discontinued, Give 500 mL bolus after amphotericin B dose. Amphotericin B is incompatible with NS; use PRN D5W order for flushing line immediately following drug administration but prior to NS bolus. 0252 ($$New Bag$$ - Provider: Shakira Sidhu RN)0353 (Stopped - Provider: Shakira Sidhu RN) 0237 ($$New Bag$$ - Provider: Kaitlyn Mcgovern RN)0311 (Stopped - Provider: Kaitlyn Mcgovern RN) Tamsulosin HCl (FLOMAX) capsule 0.4 mg 0.4 mg, Oral, DAILY, First dose on Sat04/13/24 at 0900, Until Discontinued, Slow release product. Do not chew or crush 0846 (Given - Provider: Carlos Enrique Martinez RN) 0758 (Given - Provider: Lissa Daniels RN) PRN Medication Order 04/12/2024 04/13/2024 04/14/2024 Acetaminophen (TYLENOL) tablet 650 mg 650 mg, Oral, EVERY 4 HOURS NEEDED, Starting on 04/12/24 at 2221, Until Sat04/14/24 at 1632, temperature greater than 100 degrees, Maximum dose of acetaminophen is 4000 mg from all sources in 24 hours. 1366 (Given - Provider: Shakira Sidhu RN) alum/mag hydrox.-simethicone oral suspension 30 mL 30 mL, Oral, EVERY 6 HOURS NEEDED, Starting on Sat04/12/24 at 2221, Until Sat04/14/24 at 1632, Indigestion, Per 5 mL is equivalent to: (Alum-Mag Hydroxide 200-225 mg and Simethicone 20 mg) and (Alum-Mag Hydroxide 200-200 mg and Simethicone 20 mg) Dextrose 5% IV solution 50 mL 50 mL, Intravenous, NEEDED, Starting on Sat04/12/24 at 2222, Until Sat04/14/24 at 1632, See admin instructions, Use sufficient volume to flush entire line BEFORE and AFTER amphotericin B liposomal administration. 2345 (Stopped - Provider: Shakira Sidhu, RN)2345 (Rate/Dose Change - Provider: Carlos Enrique Martinez, [place])2348 (Paused - Provider: Carlos Enrique Martinez RN)2349 (Paused - Provider: Carlos Enrique Martinez, RN) 0033 (Restarted - Provider: Shakira Sidhu, RN)0043 (Stopped - Provider: Shakira Sidhu, RN)0253 ($$New Bag$$ - Provider: Shakira Sidhu RN)0353 (Stopped - Provider: Shakira Sidhu RN) Dextrose 50% injection 7.5-25 g(Linked Group 1) 7.5-25 g, Intravenous, ADMINISTER DIRECTED, Starting on Sat04/12/24 at 2218, Until Sat04/14/24 at 1632, Blood glucose <80 mg/dL, For patients who are not alert, are NPO, or are on IV insulin infusion administer as directed per Hypoglycemia in Non- Adults Clinical Practice Guideline. For Blood Glucose: 60-79 mg/dL administer 7.5 gm (15ml); 45-59 mg/dL administer 12.5 gm (25ml); less than 45mg/dL administer 25gm (50ml). ++ If additional dextrose 50% needed, contact pharmacy or obtain from [facility] cart ++ glucose (GLUTOSE) 40 % oral gel 1-2 Tube(Linked Group 1) 1-2 Tube, Oral, ADMINISTER DIRECTED, Starting on 04/12/24 at 2218, Until Sat04/14/24 at 1632, Blood glucose <80 mg/dL, For patients who are alert, able to tolerate PO intake and with intact cognitive status administer as directed per Hypoglycemia in Non- Adults Clinical Practice Guideline. For Blood Glucose: 60-79 mg/dL administer 1 tube; 45-59 mg/dl administer 1.5 tubes; less than 45 mg/dL administer 2 tubes. Each tube of 37.5g delivers 15g of carbohydrate. Insulin lispro (HUMALOG) injection(Linked Group 1) Subcutaneous, NEEDED, Starting on 04/12/24 at 2218, Until Sat04/14/24 at 1632, Other, As needed for snacks, Insulin to carb ratio: Standard: 1 unit insulin = 10 grams carbs Correction Factor: not to be used with this order. Kwikpen: Prime pen before each injection; refer to Pen Priming and Care Handout for further details. Warning! Confirm patient. Insulin pen is for labeled individual patient use ONLY. Ondansetron (ZOFRAN) tablet 4 mg(Linked Group 2) 4 mg, Oral, EVERY 6 HOURS NEEDED, Starting on 04/12/24 at 2221, Until Sat04/14/24 at 1632, Nausea / Vomiting, 1st line Ondansetron 4mg/2ml (ZOFRAN) injection 4 mg(Linked Group 2) 4 mg, Intravenous, EVERY 6 HOURS NEEDED, Starting on 04/12/24 at 2221, Until Sat04/14/24 at 1632, Nausea / Vomiting, 1st line Sodium chloride 0.9% IV solution 250 mL Intravenous, at 20 mL/hr, NEEDED, Starting on 04/12/24 at 2221, Until Sat04/14/24 at 1632, Carrier Fluid - See Admin. Inst, 250mL 0.9NS to be used as carrier fluid for intermittent small volume or piggyback medication administration as needed. Infusion rate of the carrier fluid should be set at 20 mL/hr unless the rate as the intermittent medication is less than 20 mL/hr. For intermittent medications with a rate less than 20 mL/hr set the carrier fluid at that rate of the intermittent or piggy back medication. 0004 ($$New Bag$$ - Provider: Kaitlyn Mcgovern RN)0005 (Paused - Provider: Kaitlyn Mcgovern RN)0405 (Restarted - Provider: Kaitlyn Mcgovern RN)0518 (Stopped - Provider: Kaitlyn Mcgovern RN) Linked Groups Order Group 1: Insulin lispro (HUMALOG) injectionJump to med Subcutaneous, 4 TIMES DAILY WITH MEALS & AT BEDTIME, First dose on 04/12/24 at 2230, Until Discontinued, Insulin to carb ratio: Standard: 1 unit insulin = 10 grams carbs every meal and at bedtime Correction Factor: 151-200 = 1 unit; 201-250 = 2 units; 251-300 = 3 units; 301-350 = 4 units; 351-400 = 5 units; Kwikpen: Prime pen before each injection; refer to Pen Priming and Care Handout for further details. Warning! Confirm patient. Insulin pen is for labeled individual patient use ONLY. And Insulin lispro (HUMALOG) injectionJump to med Subcutaneous, NEEDED, Starting on Sat04/12/24 at 2218, Until Sat04/14/24 at 1632, Other, As needed for snacks, Insulin to carb ratio: Standard: 1 unit insulin = 10 grams carbs Correction Factor: not to be used with this order. Kwikpen: Prime pen before each injection; refer to Pen Priming and Care Handout for further details. Warning! Confirm patient. Insulin pen is for labeled individual patient use ONLY. And BLOOD GLUCOSE (POC DEVICE) (CANCELED) Routine, 4 TIMES DAILY BEFORE MEALS & AT BEDTIME, First occurrence on Sat04/13/24 at 0745, If any Blood Glucose (POC) is greater than 300mg/dl, then repeat Blood Glucose (POC) in 2 hours. If the initial blood glucose was greater than 300mg/dl and if second blood glucose is greater than 200md/dl, then notify Order Make Up Clerk. And BLOOD GLUCOSE (POC DEVICE) (CANCELED) Routine, DIRECTED, Starting on Sat04/12/24 at 2218, Until Specified, For all Blood Glucose LESS THAN 80 mg/dL, treat per Hypoglycemia in Non- Adults Clinical Practice Guideline (CPG) and recheck glucose 15 min after treatment. Repeat per CPG until glucose GREATER THAN 80 mg/dL. Once glucose IS GREATER THAN 80 mg/dL, recheck Blood Glucose every 1 hour x2, then resume as previously ordered. For Blood Glucose LESS THAN 80 mg/dL on admission OR LESS than 45 mg/dL at any time, obtain POC Blood Glucose every 4 hours for 6 occurrences AFTER treating per CPG. Obtain blood glucose for symptoms of hypoglycemia: sweating, shaking, fatigue, rapid pulse, slow thinking & dizziness. Notify physician w/results. Obtain blood glucose for symptoms of hyperglycemia: excessive thirst, blurred vision, excessive urination & tiredness. Notify physician w/results. If patient NPO, obtain POC Blood Glucose prior to administration of any insulin products. And COMMUNICATION ORDER FOR NURSING CARE: For Blood Glucose LESS THAN 80 mg/dl (CANCELED) Routine, CONTINUOUS, Starting on Sat04/12/24 at 2219, Until Specified, For Blood Glucose LESS THAN 80 mg/dl follow Hypoglycemia in Non- Adults Clinical Practice Guideline (CPG) And Dextrose 50% injection 7.5-25 gJump to med 7.5-25 g, Intravenous, ADMINISTER DIRECTED, Starting on Sat04/12/24 at 2218, Until Sat04/14/24 at 1632, Blood glucose <80 mg/dL, For patients who are not alert, are NPO, or are on IV insulin infusion administer as directed per Hypoglycemia in Non- Adults Clinical Practice Guideline. For Blood Glucose: 60-79 mg/dL administer 7.5 gm (15ml); 45-59 mg/dL administer 12.5 gm (25ml); less than 45mg/dL administer 25gm (50ml). ++ If additional dextrose 50% needed, contact pharmacy or obtain from [facility] cart ++ And glucose (GLUTOSE) 40 % oral gel 1-2 TubeJump to med 1-2 Tube, Oral, ADMINISTER DIRECTED, Starting on Sat04/12/24 at 2218, Until Sat04/14/24 at 1632, Blood glucose <80 mg/dL, For patients who are alert, able to tolerate PO intake and with intact cognitive status administer as directed per Hypoglycemia in Non- Adults Clinical Practice Guideline. For Blood Glucose: 60-79 mg/dL administer 1 tube; 45-59 mg/dl administer 1.5 tubes; less than 45 mg/dL administer 2 tubes. Each tube of 37.5g delivers 15g of carbohydrate. And NOTIFY PHYSICIAN, Blood Glucose LESS THAN 80 mg/dl (CANCELED) Routine, CONTINUOUS, Starting on Sat04/12/24 at 2219, Until Specified, Who to Notify: Order Make Up Clerk, For all Blood Glucose LESS THAN 80 mg/dl, notify Order Make Up Clerk after treatment per Hypoglycemia in Non- Adults Clinical Practice Guideline And Carbohydrate counts with meals (CANCELED) Routine, CONTINUOUS, Starting on Sat04/12/24 at 2219, Until Specified, Carbohydrate counts are to be done after each patient meal and with snack. Group 2: Ondansetron 4mg/2ml (ZOFRAN) injection 4 mgJump to med 4 mg, Intravenous, EVERY 6 HOURS NEEDED, Starting on 04/12/24 at 2221, Until Sat04/14/24 at 1632, Nausea / Vomiting, 1st line Or Ondansetron (ZOFRAN) tablet 4 mgJump to med 4 mg, Oral, EVERY 6 HOURS NEEDED, Starting on Sat04/12/24 at 2221, Until Sat04/14/24 at 1632, Nausea / Vomiting, 1st line Scheduled Medication Order 04/20/2024 04/21/2024 04/22/2024 amLODIPine (NORVASC) tablet 5 mg 5 mg, Oral, DAILY, First dose on Sat04/21/24 at 0900, Until Discontinued 0840 (Given - Provider: Vidal Pereira RN) 09 (Given - Provider: Candace Clarke, RN)1400 (SEP Hold - Provider: Automatic Transfer - Reason: Transfer to a Procedural area)154 ([facility] Unhold - Provider: Automatic Transfer) Amoxicillin-clavulanate (AUGMENTIN) 500-125 MG per tablet 1 tablet (CANCELED) 1 tablet, Oral, EVERY 12 HOURS, First dose on Sat04/20/24 at 2300, Until Discontinued 50 (Given - Provider: Marielena Correia RN)0839 (Given - Provider: Vidal Pereira RN) Amoxicillin-clavulanate (AUGMENTIN) 875-125 MG per tablet 1 tablet 1 tablet, Oral, EVERY 12 HOURS, First dose on Sat04/21/24 at 2100, Until Discontinued 2121 (Given - Provider: Marielena Correia RN) 905 (Given - Provider: Candace Clarke, [place])1400 ([facility] Hold - Provider: Automatic Transfer - Reason: Transfer to a Procedural area)154 ([facility] Unhold - Provider: Automatic Transfer) Ciprofloxacin (CIPRO) tablet 750 mg 750 mg, Oral, EVERY 12 HOURS, First dose (after last modification) on Sat04/21/24 at 0900, Until Discontinued, Avoid antacid, iron, dairy, sucralfate, and tube feed administration for 1 hour before and 2 hours after dose. Take on an empty stomach. 0845 (Not Given - Provider: Vidal Pereira RN - Reason: Other - Comment: Patient had dose yesterday. Order is for q48.)2121 (Given - Provider: Marielena Correia RN) 09 (Given - Provider: Candace Clarke, RN)1400 ([facility] Hold - Provider: Automatic Transfer - Reason: Transfer to a Procedural area)154 ([facility] Unhold - Provider: Automatic Transfer) diphenhydrAMINE (BENADRYL) injection 12.5 mg (COMPLETED) 12.5 mg, Intravenous, ONCE, 1 dose, On Sat04/20/24 at 1700 1618 (Given - Provider: Airam Monte RN) Insulin lispro (HUMALOG) injection(Linked Group 1) Subcutaneous, 4 TIMES DAILY WITH MEALS & AT BEDTIME, First dose on Sat04/20/24 at 2300, Until Discontinued, Insulin to carb ratio: Standard: 1 unit insulin = 10 grams carbs every meal and at bedtime Correction Factor: 151-200 = 1 unit; 201-250 = 2 units; 251-300 = 3 units; 301-350 = 4 units; 351-400 = 5 units; Kwikpen: Prime pen before each injection; refer to Pen Priming and Care Handout for further details. Warning! Confirm patient. Insulin pen is for labeled individual patient use ONLY. 0132 (Not Given - Provider: Marielena Correia RN - Reason: NPO)0848 (Not Given - Provider: Vidal Pereira RN - Reason: Order Parameters not met - Comment: Patient is NPO)1301 (Not Given - Provider: Vidal Pereira RN - Reason: Order Parameters not met - Comment: NPO)1757 (Not Given - Provider: Vidal Pereira RN - Reason: Patient/family refused - Comment: Will be NPO at midnight)2122 (Given - Provider: Marielena Correia RN) 0907 (Not Given - Provider: Candace Clarke RN - Reason: NPO)1208 (Not Given - Provider: Candace Clarke RN - Reason: Order Parameters not met - Comment: NPO)1400 ([facility] Hold - Provider: Automatic Transfer - Reason: Transfer to a Procedural area)1546 ([facility] Unhold - Provider: Automatic Transfer)1639 (Not Given - Provider: Candace Clarke RN - Reason: Other) Isavuconazonium (CRESEMBA) capsule 372 mg (CANCELED) 372 mg, Oral, EVERY 24 HOURS, First dose on Sat04/21/24 at 2200, Until Discontinued 2128 (Given - Provider: Marielena Correia RN) 1400 ([facility] Hold - Provider: Automatic Transfer - Reason: Transfer to a Procedural area)1503 ([facility] Unhold - Provider: Suzie Martin PA-C) Magnesium sulfate 4 g in sterile water 50 ml premix IVPB (COMPLETED) 4 g, Intravenous, at 12.5 mL/hr, Administer over 4 Hours, ONCE, 1 dose, On Sat04/20/24 at 2230 2249 ($$New Bag$$ - Provider: Loreto Kaplan RN) 0158 (Stopped - Provider: Marielena Correia RN) Magnesium sulfate 4 g in sterile water 50 ml premix IVPB (COMPLETED) 4 g, Intravenous, Administer over 4 Hours, ONCE, 1 dose, On Sat04/22/24 at 0815 0914 ($$New Bag$$ - Provider: Candace Clarke RN)1321 (Stopped - Provider: Candace Clarke RN) Metoprolol succinate (TOPROL-XL) tablet XL 50 mg 50 mg, Oral, DAILY, First dose on Sat04/21/24 at 0900, Until Discontinued, Slow release product. Do not crush. Extended release can be cut in half. 0840 (Given - Provider: Vidal Pereira RN) 0906 (Given - Provider: Candace Clarke RN)1400 ([facility] Hold - Provider: Automatic Transfer - Reason: Transfer to a Procedural area)1546 ([facility] Unhold - Provider: Automatic Transfer) Posaconazole (Noxafil) Delayed Release Tablet 300 mg (COMPLETED) 300 mg, Oral, ONCE, 1 dose, On Sat04/22/24 at 1545, Administer with a full meal or an oral liquid nutritional supplement. 1802 (Given - Provider: Candace Clarke RN) Prochlorperazine (COMPAZINE) injection 10 mg (COMPLETED) 10 mg, Intravenous, ONCE, 1 dose, On Sat04/20/24 at 1515, For IV route: dilute dose with 10mL normal saline and give by slow IV push at a rate of 5mg/min. Maximum of 40mg/day. 1503 (Given - Provider: Loreto Kaplan RN) Rosuvastatin (CRESTOR) tablet 10 mg 10 mg, Oral, DAILY, First dose on Sat04/21/24 at 0900, Until Discontinued 0839 (Given - Provider: Vidal Pereira RN) 0906 (Given - Provider: Candace Clarke RN)1400 ([facility] Hold - Provider: Automatic Transfer - Reason: Transfer to a Procedural area)1546 ([facility] Unhold - Provider: Automatic Transfer) Sodium chloride 0.9% IV solution 1,000 mL (COMPLETED) 1,000 mL, Intravenous, ONCE, 1 dose, On Sat04/20/24 at 2230, Fluid Bolus 2229 ($$New Bag$$ - Provider: Loreto Kaplan RN)2238 (Paused - Provider: Marielena Correia, [place])2245 (Paused - Provider: Marielena Correia, [place])2245 (Restarted - Provider: Marielena Correia RN)2340 (Stopped - Provider: Marielena Correia RN) Tamsulosin HCl (FLOMAX) capsule 0.4 mg 0.4 mg, Oral, DAILY, First dose on Sat04/21/24 at 0900, Until Discontinued, Slow release product. Do not chew or crush 0839 (Given - Provider: Vidal Pereira RN) 0906 (Given - Provider: Candace Clarke RN)1400 ([facility] Hold - Provider: Automatic Transfer - Reason: Transfer to a Procedural area)1546 ([facility] Unhold - Provider: Automatic Transfer) Continuous Medication Order 04/20/2024 04/21/2024 04/22/2024 Heparin 25,000 units in dextrose 5% 250 mL premix infusion CONTINUOUS, Starting on Sat04/21/24 at 0600, Until Sat04/22/24 at 2023, STANDARD SLIDING SCALE FOR PATIENTS WEIGHT LESS THAN 125KG: Initiate dose at 18 units/kg/hr. If PTT is less than 47, increase dose by 3 units/kg/hr. If PTT is 47-60, increase dose by 2 units/kg/hr. If PTT is 61-71, increase dose by 1 unit/kg/hr. If PTT is 72-95, no change. If PTT is 96-111, decrease dose by 1 unit/kg/hr. If PTT is 112-126, hold infusion for 60 minutes and decrease dose by 2 units/kg/hr. If PTT greater than 126, hold infusion and check PTT every 2 hours. Once PTT is in goal range or below, restart infusion at 3 units/kg/hr lower than the most recent dose. Note: Round PTT to nearest whole number (e.g. 70.5=71, 70.4=70)., Indications: Deep Vein Thrombosis 0658 ($$New Bag$$ - Provider: Marielena Correia RN)0850 (Rate/Dose Verify - Provider: Vidal Pereira RN)1210 (Rate/Dose Verify - Provider: Vidal Pereira RN)1445 (Restarted - Provider: Vidal Pereira RN)1451 (Rate/Dose Change - Provider: Vidal Pereira RN)1453 (Rate/Dose Verify - Provider: Vidal Pereira RN)1519 (Paused - Provider: Vidal Pereira RN)1520 (Restarted - Provider: Vidal Pereira RN)1655 (Rate/Dose Verify - Provider: Vidal Pereira RN)1712 (Paused - Provider: Marielena Correia RN)1714 (Restarted - Provider: Marielena Correia RN)1717 (Paused - Provider: Marielena Correia RN)1902 (Restarted - Provider: Marielena Correia RN)205 (Paused - Provider: Marielena Correia RN)2120 (Restarted - Provider: Marielena Correia RN)213 (Rate/Dose Verify - Provider: Marielena Correia RN)213 (Paused - Provider: Marielena Correia RN)2140 (Restarted - Provider: Marielena Correia RN)2217 (Rate/Dose Change - Provider: Marielena Correia RN)2218 (Rate/Dose Verify - Provider: Marielena Correia RN) 0055 ($$New Bag$$ - Provider: Cece Lee RN)0541 (Rate/Dose Verify - Provider: Marielena Correia RN)0844 (Rate/Dose Verify - Provider: Candace Clarke RN)0858 (Rate/Dose Verify - Provider: Candace Clarke RN)0905 (Rate/Dose Verify - Provider: Candace Clarke RN)0936 (Rate/Dose Verify - Provider: Candace Clarke RN - Comment: PTT therapeutic)1353 (Rate/Dose Verify - Provider: Candace Clarke RN)1400 ([facility] Hold - Provider: Automatic Transfer - Reason: Transfer to a Procedural area)1412 (Rate/Dose Verify - Provider: Candace Clarke RN)1415 (Rate/Dose Verify - Provider: Candace Clarke RN)1440 (Stopped - Provider: Candace Clarke RN)1546 ([facility] Unhold - Provider: Automatic Transfer) Lactated ringers IV solution Intravenous, at 100 mL/hr, CONTINUOUS, Starting on Sat04/21/24 at 1830, Until Sat04/22/24 at 0629 1906 ($$New Bag$$ - Provider: Vidal Pereira RN) 0441 (Rate/Dose Verify - Provider: Marielena Correia RN)0618 (Stopped - Provider: Cece Lee RN) Lactated ringers IV solution Intravenous, at 100 mL/hr, CONTINUOUS, Starting on Sat04/22/24 at 0815, Until Sat04/22/24 at 1614 0910 ($$New Bag$$ - Provider: Candace Clarke RN)0914 (Rate/Dose Verify - Provider: Candace Clarke RN)1353 (Rate/Dose Verify - Provider: Candace Clarke RN)1400 (MAR Hold - Provider: Automatic Transfer - Reason: Transfer to a Procedural area)1412 (Rate/Dose Verify - Provider: Candace Clarke RN)1507 (Rate/Dose Verify - Provider: Candace Clarke RN)1546 ([facility] Unhold - Provider: Automatic Transfer)1655 (Stopped - Provider: Candace Clarke RN) Sodium chloride 0.9% IV solution (CANCELED) Intravenous, at 125 mL/hr, CONTINUOUS, Starting on Sat04/21/24 at 1000, Until Sat04/21/24 at 1814 1104 ($$New Bag$$ - Provider: Vidal Pereira RN)1105 (Paused - Provider: Vidal Pereira RN)1107 (Restarted - Provider: Vidal Pereira RN)1210 (Rate/Dose Verify - Provider: Vidal Pereira RN)1445 (Restarted - Provider: Vidal Pereira RN)1519 (Paused - Provider: Vidal Pereira RN)1520 (Restarted - Provider: Vidal Pereira RN)1655 (Rate/Dose Verify - Provider: Vidal Pereira RN)1902 (Stopped - Provider: Vidal Pereira RN) PRN Medication Order 04/20/2024 04/21/2024 04/22/2024 Acetaminophen (TYLENOL) tablet 650 mg 650 mg, Oral, EVERY 6 HOURS NEEDED, Starting on Sat04/21/24 at 0538, Until Sat04/22/24 at 2023, Mild Pain, Maximum dose of acetaminophen is 4000 mg from all sources in 24 hours. 1400 ([facility] Hold - Provider: Automatic Transfer - Reason: Transfer to a Procedural area)1546 ([facility] Unhold - Provider: Automatic Transfer) alum/mag hydrox.-simethicone oral suspension 30 mL 30 mL, Oral, EVERY 6 HOURS NEEDED, Starting on Sat04/21/24 at 0538, Until Sat04/22/24 at 2023, Indigestion, Per 5 mL is equivalent to: (Alum-Mag Hydroxide 200-225 mg and Simethicone 20 mg) and (Alum-Mag Hydroxide 200-200 mg and Simethicone 20 mg) 1400 ([facility] Hold - Provider: Automatic Transfer - Reason: Transfer to a Procedural area)154 ([facility] Unhold - Provider: Automatic Transfer) Dextrose 50% injection 7.5-25 g(Linked Group 1) 7.5-25 g, Intravenous, ADMINISTER DIRECTED, Starting on Sat04/20/24 at 2200, Until Sat04/22/24 at 2023, Blood glucose <80 mg/dL, For patients who are not alert, are NPO, or are on IV insulin infusion administer as directed per Hypoglycemia in Non- Adults Clinical Practice Guideline. For Blood Glucose: 60-79 mg/dL administer 7.5 gm (15ml); 45-59 mg/dL administer 12.5 gm (25ml); less than 45mg/dL administer 25gm (50ml). ++ If additional dextrose 50% needed, contact pharmacy or obtain from crash cart ++ 1400 (SEP Hold - Provider: Automatic Transfer - Reason: Transfer to a Procedural area)154 ([facility] Unhold - Provider: Automatic Transfer) fentaNYL (SUBLIMAZE) injection 0-300 mcg (CANCELED) 0-300 mcg, Intravenous, Administer over 2 Minutes, ADMINISTER DIRECTED, Starting on Sat04/22/24 at 1432, Until Sat04/22/24 at 154, intraoperative pain management, Administer during procedure as directed by physician. Recorded MAR dose is cumulative amount given during procedure., Intra-op/Intra-Proc 1537 (Given - Provid er: Jc Chen RN)154 (Given - Provider: Jc Chen RN) fentaNYL (SUBLIMAZE) injection (COMPLETED) Administer over 2 Minutes, ONCE NEEDED, 1 dose, Starting on Sat04/22/24 at 1550, Until Sat04/22/24 at 1550, Intra-op/Intra-Proc 1550 (Given - Provid er: Jc Chen RN) fentaNYL (SUBLIMAZE) injection (COMPLETED) Administer over 2 Minutes, ONCE NEEDED, 1 dose, Starting on Sat04/22/24 at 1554, Until Sat04/22/24 at 1554, Intra-op/Intra-Proc 1554 (Given - Provid er: Jc Chen RN) fentaNYL (SUBLIMAZE) injection (COMPLETED) Administer over 2 Minutes, ONCE NEEDED, 1 dose, Starting on Sat04/22/24 at 1601, Until Sat04/22/24 at 1601, Intra-op/Intra-Proc 1601 (Given - Provid er: Jc Chen RN) glucose (GLUTOSE) 40 % oral gel 1-2 Tube(Linked Group 1) 1-2 Tube, Oral, ADMINISTER DIRECTED, Starting on Sat04/20/24 at 2200, Until Sat04/22/24 at 2023, Blood glucose <80 mg/dL, For patients who are alert, able to tolerate PO intake and with intact cognitive status administer as directed per Hypoglycemia in Non- Adults Clinical Practice Guideline. For Blood Glucose: 60-79 mg/dL administer 1 tube; 45-59 mg/dl administer 1.5 tubes; less than 45 mg/dL administer 2 tubes. Each tube of 37.5g delivers 15g of carbohydrate. 1400 ([facility] Hold - Provider: Automatic Transfer - Reason: Transfer to a Procedural area)1546 ([facility] Unhold - Provider: Automatic Transfer) Insulin lispro (HUMALOG) injection(Linked Group 1) Subcutaneous, NEEDED, Starting on Sat04/20/24 at 2200, Until Sat04/22/24 at 2023, Other, As needed for snacks, Insulin to carb ratio: Standard: 1 unit insulin = 10 grams carbs Correction Factor: not to be used with this order. Kwikpen: Prime pen before each injection; refer to Pen Priming and Care Handout for further details. Warning! Confirm patient. Insulin pen is for labeled individual patient use ONLY. 1400 ([facility]P Hold - Provider: Automatic Transfer - Reason: Transfer to a Procedural area)1546 ([facility] Unhold - Provider: Automatic Transfer) Iohexol (OMNIPAQUE) 300 MG/ML vial (COMPLETED) ONCE NEEDED, 1 dose, Starting on Sat04/22/24 at 1607, Until Sat04/22/24 at 1607, Intra-op/Intra-Proc 1607 (Given - Provid er: Timoteo Taveras DO) Lidocaine 2 % injection (COMPLETED) ONCE NEEDED, 1 dose, Starting on Sat04/22/24 at 1607, Until Sat04/22/24 at 1607, Intra-op/Intra-Proc 1607 (Given - Provid er: Timoteo Taveras DO) midazolam (VERSED) injection 0-10 mg (CANCELED) 0-10 mg, Intravenous, ADMINISTER DIRECTED, Starting on Sat04/22/24 at 1432, Until Sat04/22/24 at 1546, Procedural sedation, Administer during procedure as directed by physician. Recorded MAR dose is cumulative amount given during procedure., Intra-op/Intra-Proc 1537 (Given - Provid er: Jc Chen RN)1542 (Given - Provider: Jc Chen RN) midazolam (VERSED) injection (COMPLETED) ONCE NEEDED, 1 dose, Starting on Sat04/22/24 at 1550, Until Sat04/22/24 at 1550, Intra-op/Intra-Proc 1550 (Given - Provid er: Jc Chen RN) midazolam (VERSED) injection (COMPLETED) ONCE NEEDED, 1 dose, Starting on Sat04/22/24 at 1554, Until Sat04/22/24 at 1554, Intra-op/Intra-Proc 1554 (Given - Provid er: Jc Chen RN) midazolam (VERSED) injection (COMPLETED) ONCE NEEDED, 1 dose, Starting on Sat04/22/24 at 1601, Until Sat04/22/24 at 1601, Intra-op/Intra-Proc 1601 (Given - Provid er: Jc Chen RN) Ondansetron (ZOFRAN) tablet 4 mg(Linked Group 2) 4 mg, Oral, EVERY 6 HOURS NEEDED, Starting on Sat04/22/24 at 0816, Until Sat04/22/24 at 2024, Nausea / Vomiting 0902 (See Alternativ e - Provider: Candace Clarke RN)1400 (SEP Hold - Provider: Automatic Transfer - Reason: Transfer to a Procedural area)1546 ([facility] Unhold - Provider: Automatic Transfer) Ondansetron 4mg/2ml (ZOFRAN) injection 4 mg (CANCELED) 4 mg, Intravenous, EVERY 6 HOURS NEEDED, Starting on Sat04/20/24 at 2351, Until Sat04/22/24 at 0817, Nausea / Vomiting 2136 (Given - Provider: Marielena Correia RN) Ondansetron 4mg/2ml (ZOFRAN) injection 4 mg(Linked Group 2) 4 mg, Intravenous, EVERY 6 HOURS NEEDED, Starting on Sat04/22/24 at 0816, Until Sat04/22/24 at 2023, Nausea / Vomiting 0902 (Given - Provid er: Candace Clarke RN)1400 (SEP Hold - Provider: Automatic Transfer - Reason: Transfer to a Procedural area)1546 ([facility] Unhold - Provider: Automatic Transfer) Linked Groups Order Group 1: Insulin lispro (HUMALOG) injectionJump to med Subcutaneous, 4 TIMES DAILY WITH MEALS & AT BEDTIME, First dose on Sat04/20/24 at 2300, Until Discontinued, Insulin to carb ratio: Standard: 1 unit insulin = 10 grams carbs every meal and at bedtime Correction Factor: 151-200 = 1 unit; 201-250 = 2 units; 251-300 = 3 units; 301-350 = 4 units; 351-400 = 5 units; Kwikpen: Prime pen before each injection; refer to Pen Priming and Care Handout for further details. Warning! Confirm patient. Insulin pen is for labeled individual patient use ONLY. And Insulin lispro (HUMALOG) injectionJump to med Subcutaneous, NEEDED, Starting on Sat04/20/24 at 2200, Until Sat04/22/24 at 2023, Other, As needed for snacks, Insulin to carb ratio: Standard: 1 unit insulin = 10 grams carbs Correction Factor: not to be used with this order. Kwikpen: Prime pen before each injection; refer to Pen Priming and Care Handout for further details. Warning! Confirm patient. Insulin pen is for labeled individual patient use ONLY. And BLOOD GLUCOSE (POC DEVICE) (CANCELED) Routine, 4 TIMES DAILY BEFORE MEALS & AT BEDTIME, First occurrence on Sat04/21/24 at 0745, If any Blood Glucose (POC) is greater than 300mg/dl, then repeat Blood Glucose (POC) in 2 hours. If the initial blood glucose was greater than 300mg/dl and if second blood glucose is greater than 200md/dl, then notify Order Make Up Clerk. And BLOOD GLUCOSE (POC DEVICE) (CANCELED) Routine, DIRECTED, Starting on Sat04/20/24 at 2200, Until Specified, For all Blood Glucose LESS THAN 80 mg/dL, treat per Hypoglycemia in Non- Adults Clinical Practice Guideline (CPG) and recheck glucose 15 min after treatment. Repeat per CPG until glucose GREATER THAN 80 mg/dL. Once glucose IS GREATER THAN 80 mg/dL, recheck Blood Glucose every 1 hour x2, then resume as previously ordered. For Blood Glucose LESS THAN 80 mg/dL on admission OR LESS than 45 mg/dL at any time, obtain POC Blood Glucose every 4 hours for 6 occurrences AFTER treating per CPG. Obtain blood glucose for symptoms of hypoglycemia: sweating, shaking, fatigue, rapid pulse, slow thinking & dizziness. Notify physician w/results. Obtain blood glucose for symptoms of hyperglycemia: excessive thirst, blurred vision, excessive urination & tiredness. Notify physician w/results. If patient NPO, obtain POC Blood Glucose prior to administration of any insulin products. And COMMUNICATION ORDER FOR NURSING CARE: For Blood Glucose LESS THAN 80 mg/dl (CANCELED) Routine, CONTINUOUS, Starting on Sat04/20/24 at 2201, Until Specified, For Blood Glucose LESS THAN 80 mg/dl follow Hypoglycemia in Non- Adults Clinical Practice Guideline (CPG) And Dextrose 50% injection 7.5-25 gJump to med 7.5-25 g, Intravenous, ADMINISTER DIRECTED, Starting on Sat04/20/24 at 2200, Until Sat04/22/24 at 2023, Blood glucose <80 mg/dL, For patients who are not alert, are NPO, or are on IV insulin infusion administer as directed per Hypoglycemia in Non- Adults Clinical Practice Guideline. For Blood Glucose: 60-79 mg/dL administer 7.5 gm (15ml); 45-59 mg/dL administer 12.5 gm (25ml); less than 45mg/dL administer 25gm (50ml). ++ If additional dextrose 50% needed, contact pharmacy or obtain from [facility] cart ++ And glucose (GLUTOSE) 40 % oral gel 1-2 TubeJump to med 1-2 Tube, Oral, ADMINISTER DIRECTED, Starting on Sat04/20/24 at 2200, Until Sat04/22/24 at 2023, Blood glucose <80 mg/dL, For patients who are alert, able to tolerate PO intake and with intact cognitive status administer as directed per Hypoglycemia in Non- Adults Clinical Practice Guideline. For Blood Glucose: 60-79 mg/dL administer 1 tube; 45-59 mg/dl administer 1.5 tubes; less than 45 mg/dL administer 2 tubes. Each tube of 37.5g delivers 15g of carbohydrate. And NOTIFY PHYSICIAN, Blood Glucose LESS THAN 80 mg/dl (CANCELED) Routine, CONTINUOUS, Starting on Sat04/20/24 at 2201, Until Specified, Who to Notify: Order Make Up Clerk, For all Blood Glucose LESS THAN 80 mg/dl, notify Order Make Up Clerk after treatment per Hypoglycemia in Non- Adults Clinical Practice Guideline And Carbohydrate counts with meals (CANCELED) Routine, CONTINUOUS, Starting on Sat04/20/24 at 2201, Until Specified, Carbohydrate counts are to be done after each patient meal and with snack. Group 2: Ondansetron (ZOFRAN) tablet 4 mgJump to med 4 mg, Oral, EVERY 6 HOURS NEEDED, Starting on Sat04/22/24 at 0816, Until Sat04/22/24 at 2023, Nausea / Vomiting Or Ondansetron 4mg/2ml (ZOFRAN) injection 4 mgJump to med 4 mg, Intravenous, EVERY 6 HOURS NEEDED, Starting on Sat04/22/24 at 0816, Until Sat04/22/24 at 2023, Nausea / Vomiting (unrecognized sect ion and content) No Status Records FoundNo Status Records FoundNo Status Records FoundNo Status Records FoundNo Status Records Found INFORMATION SOURCE (unrecogn ized section and content) DATE CREATED AUTHOR 03/12/2024 [facility] ([place]) DATE CREATED AUTHOR AUTHOR'S ORGANIZ ATION 11/20/2024 [facility] DATE CREATED AUTHOR AUTHOR'S ORGANIZ ATION 01/05/2025 [facility] DATE CREATED AUTHOR AUTHOR'S ORGANIZ ATION 02/22/[address] [facility] DATE CREATED AUTHOR AUTHOR'S BHAVNA EATON 03/09/2025 [facility] Comments (unrecognize d section and content) In the event this informatio n is protected by the Federal Confidentiality of Alcohol and Drug Abuse Patient Records regulations: The Federal rules restrict any use of the information to criminally investigate or prosecute any alcohol or drug abuse patient.[facility] FOR RECORDS PERTAINING TO PATIENTS WHO ARE OR HAVE BEEN ENROLLED IN A CHEMICAL DEPENDENCY/SUBSTANCEABUSE PROGRAM, SOME INFORMATION MAY BE OMITTED. This clinical summary was aggregated from multiple sources. Caution should be exercised in using it in the provision of clinical care. This summary normalizes information from multiple sources, and as a consequence, information in this document may materially change the coding, format and clinical context of patient data. In addition, data may be omitted in some cases. CLINICAL DECISIONS SHOULD BE BASED ON THE PRIMARY CLINICAL RECORDS. [employer] provides no warranty or guarantee of the accuracy or completeness of information in this document.
[2025-03-20 13:39] VITALS: BP 131/79; PULSE 63; RESP 18; TEMP 36.7; O2SAT 97
== END 2025-03-20 13:45 | disposition home or self-care (01) ==
PROVIDERS: Emergency Provider Student in an Organized Health Care Education/Training Program; Visit Provider Student in an Organized Health Care Education/Training Program
DX: M79.605 Pain in left leg (principal); E11.9 Type 2 diabetes mellitus without complications; Z86.711 Personal history of pulmonary embolism; Z86.718 Personal history of other venous thrombosis and embolism; E78.5 Hyperlipidemia, unspecified; I10 Essential (primary) hypertension; Z79.01 Long term (current) use of anticoagulants
CPT/HCPCS: 93971; 99282